=== PATIENT | female | born 1955 | race Caucasian/White ===

== ENCOUNTER → 2016-11-06 | Outpatient (CLI) | payer MEDICARE, BC ==
[2016-11-06 12:45] LABS: Anisocytosis Slight; CH 25.8; HDW 3.12; Hypochromasia Marked; Large Platelets Flag Slight; MCH 26.2 pg (25.0-35.0); MCHC 30.4 g/dL (31.0-37.0); MCV 86.5 fL (80.0-100.0); Mean Platelet Volume 11.6; RBC 3.73 m/uL (3.80-5.40); RDW 17.9 % (11.5-15.5); WBC 3.7 k/uL (3.8-10.6)
[2016-11-06 13:07] LABS: ALT 63 U/L (9-52); AST 63 U/L (14-36); Alkaline Phosphatase 106 U/L (38-126); Anion Gap 11 mmol/L; Blood Urea Nitrogen 14 mg/dL (7-17); Carbon Dioxide 26 mmol/L (22-30); Chloride 104 mmol/L (98-107); Glucose 228 mg/dL (74-99); Non-African American GFR(MDRD) >60 (>60 ml/min/1.73 sqM); Potassium 4.2 mmol/L (3.5-5.1); Sodium 141 mmol/L (137-145); Total Bilirubin 0.7 mg/dL (0.2-1.3); Total Protein 7.1 g/dL (6.3-8.2)
[2016-11-06 13:17] LABS: INR 1.2 (<1.1); Prothrombin Time 11.6 sec (9.0-12.0)
[2016-11-06 13:39] LABS: HCT 32.3 % (34.0-46.0); HGB 9.8 gm/dL (11.4-16.0)
== END | disposition home or self-care (01) ==
LOC: LABWHC1 11:56
DX: K74.60 Unspecified cirrhosis of liver (principal); R18.8 Other ascites
CPT/HCPCS: 36415; 80053; 85027; 85610

== ENCOUNTER → 2016-11-15 | Outpatient (CLI) | payer MEDICARE, BC | END | disposition home or self-care (01) | LOC: LABWHC1 09:02 | PROVIDERS: ATTEND Family Medicine | DX: E10.9 Type 1 diabetes mellitus without complications (principal) | CPT/HCPCS: 36415; 82947; 84681 ==

== ENCOUNTER → 2016-12-27 | Outpatient (CLI) | payer MEDICARE, BC ==
[2016-12-27 10:44] LABS: Anisocytosis Slight; Basophils % (A) 1 %; CH 27.2; Eosinophils # (A) 0.1 k/uL (0-0.7); Eosinophils % (A) 2 %; HCT 33.8 % (34.0-46.0); HDW 2.89; HGB 10.8 gm/dL (11.4-16.0); Hypochromasia Moderate; Luc # (Auto) 0.07; Luc % (Auto) 2; Lymphocytes # (A) 0.7 k/uL (1.0-4.8); Lymphocytes % (A) 19 %; MCHC 31.9 g/dL (31.0-37.0); MCV 87.9 fL (80.0-100.0); Mean Platelet Volume 10.7; Monocytes # (A) 0.2 k/uL (0-1.0); Monocytes % (A) 6 %; Neutrophils # (A) 2.7 k/uL (1.3-7.7); Neutrophils % (A) 70 %; RBC 3.84 m/uL (3.80-5.40); RDW 18.3 % (11.5-15.5); WBC 3.8 k/uL (3.8-10.6)
[2016-12-27 10:54] LABS: ALT 67 U/L (9-52); AST 72 U/L (14-36); Alkaline Phosphatase 88 U/L (38-126); Anion Gap 11 mmol/L; Blood Urea Nitrogen 9 mg/dL (7-17); Calcium 8.9 mg/dL (8.4-10.2); Carbon Dioxide 25 mmol/L (22-30); Chloride 104 mmol/L (98-107); Glucose 147 mg/dL (74-99); Non-African American GFR(MDRD) >60 (>60 ml/min/1.73 sqM); Potassium 4.3 mmol/L (3.5-5.1); Sodium 140 mmol/L (137-145); Total Bilirubin 1.2 mg/dL (0.2-1.3)
--- NOTE | 2016-12-27 11:16 | US ---
EXAMINATION TYPE: US abdomen complete DATE OF EXAM: 12/27/2016 9:57 AM COMPARISON: 02/08/2016 CLINICAL HISTORY: 61-year-old female Unspecified Liver cirrhosis K74.60. non-alcoholic cirrhosis, boris betic. TECHNIQUE: Multiple sonographic images of the abdomen were obtained. FINDINGS: TECHNOLOGIST NOTES: some exam limitations due to overlying bowel gas Liver Length: 15.7 cm CBD: 0.4 cm Spleen: 18.9 cm Right Kidney: 9.3 x 4.3 x 4.8 cm Left Kidney: 9.4 x 4.1 x 4.0 cm Pancreas: body/tail suboptimally visualized secondary to shadowing from bowel gas. The visualized po rtions show no gross abnormality. Liver: Limited views of the liver show diffuse heterogeneous echotexture and lobulated contour chava tible with underlying cirrhosis. No discrete mass is seen. Portal vein shows appropriate hepatopedal flow by velocity at the lower limits of normal at approximately 15 cm/s. Gallbladder: surgically absent CBD: Within normal limits Spleen: Significantly enlarged Right Kidney: No hydronephrosis Left Kidney: No hydronephrosis Upper IVC: Not well seen Abd Aorta: Obscured by overlying bowel gas IMPRESSION: 1. Coarsened appearance of the liver with lobulated contour compatible with underlying cirrhosis. Irene ited views show no evidence for hepatoma. 2. Prominent splenomegaly at 19 cm suggesting underlying portal venous hypertension. Blood flow in th e main portal vein is borderline sluggish. 3. Status post cholecystectomy. No bile duct dilatation.
[2016-12-27 11:53] LABS: Manual Review Performed
== END | disposition home or self-care (01) ==
LOC: RADUSWWP 09:24
DX: R16.1 Splenomegaly, not elsewhere classified (principal); Z90.49 Acquired absence of other specified parts of digestive tract
CPT/HCPCS: 36415; 76700; 80053; 82105; 85025

== ENCOUNTER → 2017-01-12 | Outpatient (CLI) | payer MEDICARE, BC ==
[2017-01-12 11:12] VITALS: BMI 29.7
== END | disposition home or self-care (01) ==
LOC: DBWHC3 10:58
PROVIDERS: ATTEND Family Medicine
DX: E11.65 Type 2 diabetes mellitus with hyperglycemia (principal); I10 Essential (primary) hypertension; E78.5 Hyperlipidemia, unspecified
CPT/HCPCS: G0108 ×4

== ENCOUNTER 2017-02-06 06:45 | Day surgery (SDC) | payer MEDICARE, BC ==
[2017-02-01 11:28] VITALS: BMI 28.6
[~2017-02-06 06:45] MED LIST: LACTATED RINGERS 1,000 ML IV SCH; LIDOCAINE 1% 20 ML VIAL (10MG/ML) FOR IV START INTRADERMA PRN
[2017-02-06] MEDS ORDERED: LACTATED RINGERS 1,000 ML IV ONE (07:00)
[2017-02-06 07:04] VITALS: TEMP 97.5
[2017-02-06 07:13] LABS: Glucose,Whole Blood 100 mg/dL (75-99)
[2017-02-06] MEDS ORDERED: PROPOFOL 10 MG/ML 20 ML VIAL IV ONE (08:31)
--- NOTE | 2017-02-06 09:19 | P.PCN ---
Date of Procedure: 02/06/17 Procedure(s) Performed: Procedure: Colonoscopy and polypectomy. Preoperative diagnosis: Screening for neoplasia. Postoperative diagnosis: 1. Mild sigmoid diverticulosis with no evidence of acute diverticulitis or strictures. 2. Distal sigmoid polyp snared but no large polyps or cancer. 3. Less than ideal preparation. Preparation: HalfLytely prep. Sedation: Was provided by anesthesia. Brief clinical history: The patient is a 61-year-old female who is scheduled for this evaluation for screening for neoplasia. She had a prior exam more than 6 years ago. There is no history of abdominal pains change in bowel habits or bleeding. Procedure: With the patient on her left lateral decubitus position and after informed consent and adequate sedation, the perianal area was inspected and it did not show any fissures or fistulas. There were no masses felt on digital rectal examination. The Olympus CFQ 160L video colonoscope was then inserted in the rectum in the usual fashion and advanced to the cecum. Unfortunately the preparation was not ideal and there was thick secretions and cecal debris that I could not consistently wash off or suction. There was few small diverticular orifices seen scattered in the distal sigmoid, and in the distal sigmoid around 30-35 cm from the anal verge there was a 1.5 cm polyp which I snared. There were no large polyps or tumors. With her less than ideal preparation, small polyps and superficial pathology could have been missed. There was no spontaneous bleeding and the mucosa where visualized appeared healthy. I retroflexed the endoscope in the rectum before the endoscope was withdrawn. The patient tolerated the procedure well. Plan: The patient was reassured. Discussed dietary measures. Because of her preparation and the finding of polyps, I am recommending repeat exam in 2-3 years before we go to a longer interval for screening. She will follow-up with you as planned.
[2017-02-06 09:25] LABS: Glucose,Whole Blood 128 mg/dL (75-99)
[2017-02-06 09:38] VITALS: RESP 16
[2017-02-06 09:46] VITALS: BP 118/58; PULSE 68
== END 2017-02-06 09:56 | disposition home or self-care (01) ==
LOC: ORWHC2ENDO 06:45
DX: Z12.11 Encounter for screening for malignant neoplasm of colon (principal); D12.5 Benign neoplasm of sigmoid colon; K57.30 Diverticulosis of large intestine without perforation or abscess without bleeding; E11.9 Type 2 diabetes mellitus without complications; I11.0 Hypertensive heart disease with heart failure; I50.9 Heart failure, unspecified; F32.9 Major depressive disorder, single episode, unspecified; Z79.4 Long term (current) use of insulin; Z79.899 Other long term (current) drug therapy; Z96.41 Presence of insulin pump (external) (internal); Z88.1 Allergy status to other antibiotic agents; Z88.0 Allergy status to penicillin; Z88.2 Allergy status to sulfonamides; Z91.09 Other allergy status, other than to drugs and biological substances
CPT/HCPCS: 45385; J2704

== ENCOUNTER → 2017-03-19 | Outpatient (CLI) | payer MEDICARE, BC | END | disposition home or self-care (01) | LOC: LABWHC1 11:11 | PROVIDERS: ATTEND Internal Medicine Endocrinology, Diabetes & Metabolism | DX: E11.65 Type 2 diabetes mellitus with hyperglycemia (principal) | CPT/HCPCS: 36415; 82947; 84681 ==

== ENCOUNTER → 2017-06-07 | Outpatient (CLI) | payer MEDICARE, BC ==
[2017-06-07 12:26] LABS: ALT 48 U/L (9-52); AST 48 U/L (14-36); Alkaline Phosphatase 97 U/L (38-126); Anion Gap 10 mmol/L; Blood Urea Nitrogen 9 mg/dL (7-17); Carbon Dioxide 23 mmol/L (22-30); Chloride 109 mmol/L (98-107); Glucose 93 mg/dL (74-99); Non-African American GFR(MDRD) >60 (>60 ml/min/1.73 sqM); Potassium 4.3 mmol/L (3.5-5.1); Sodium 142 mmol/L (137-145); Total Bilirubin 1.1 mg/dL (0.2-1.3); Total Protein 6.7 g/dL (6.3-8.2)
[2017-06-07 12:27] LABS: Basophils % (A) 0 %; CH 29.3; CHCM 31.9; Eosinophils # (A) 0.1 k/uL (0-0.7); Eosinophils % (A) 2 %; HCT 34.6 % (34.0-46.0); HDW 3.02; HGB 11.2 gm/dL (11.4-16.0); Hypochromasia Slight; Large Platelets Flag Slight; Luc # (Auto) 0.11; Luc % (Auto) 3; Lymphocytes # (A) 0.9 k/uL (1.0-4.8); Lymphocytes % (A) 19 %; MCHC 32.5 g/dL (31.0-37.0); MCV 92.2 fL (80.0-100.0); Mean Platelet Volume 11.3; Monocytes # (A) 0.3 k/uL (0-1.0); Monocytes % (A) 6 %; Neutrophils # (A) 3.1 k/uL (1.3-7.7); Neutrophils % (A) 70 %; RBC 3.75 m/uL (3.80-5.40); RDW 15.8 % (11.5-15.5); WBC 4.5 k/uL (3.8-10.6); WBC (Perox) 4.54
== END | disposition home or self-care (01) ==
LOC: LABWHC1 11:52
DX: K74.60 Unspecified cirrhosis of liver (principal)
CPT/HCPCS: 36415; 80053; 82105; 82140; 85025

== ENCOUNTER → 2017-06-14 | Outpatient (CLI) | payer MEDICARE, BC ==
--- NOTE | 2017-06-14 15:46 | BD ---
EXAMINATION TYPE: MG DEXA axial skeleton. DATE OF EXAM: 06/14/2017 COMPARISON: NONE CLINICAL HISTORY: 62-year-old female symptomatic postmenopausal state Height: 63 Weight: 182.0 FRAX RISK QUESTIONS: Alcohol (3 or more units per day): no Family History (Parent hip fracture): no Glucocorticoids (More than 3mos): no (Ex: prednisone, prednisolone, methylprednisolone, dexamethasone, and hydrocortisone). History of Fracture in Adulthood: no Secondary Osteoporosis: 1. Type 1 Diabetes: no 2. Hyperthyroidism: no 3. Menopause before 45: yes 4. Malnutrition: no 5. Chronic liver disease: yes Rheumatoid Arthritis: no Current Tobacco Use: no RISK FACTORS HISTORY OF: Hip Fracture (Right/Left): no Spine Fracture: no History of Wrist Fracture: yes right / as a child Surgery to Spine/Hip(right/left)/Wrist (right/left): lumbar spine- 2015 Family History of Osteoporosis: no Active: yes Diet low in dairy products/other sources of calcium: yes Postmenopausal woman: age 26 hysterectomy/cervical cancer Lost more than 2 inches in height since high school: yes Frequent falls: no Poor Health: no Hyperparathyroidism: no Adrenal Insufficiency: no MEDICATIONS: insulin-, Lasix, throat meds, Additional History: CHF EXAM MEASUREMENTS: Bone mineral densitometry was performed using the Loogla System. Bone mineral density about the R hip (g/cm2): 1.012 Bone mineral density about the L hip (g/cm2): 0.946 T Score values are as follows: -----R Neck: -0.2 -----L Neck: -0.7 -----R Total: 1.5 -----L Total: 0.9 Bone mineral density has: decreased -2.4 % since study of: 08.03.2011 IMPRESSION: Measurements taken at the hips due to prior lumbar surgery. Normal (Values between +1 and -1 indicate normal bone mass). Consider repeating this study in 5 year s or sooner if there is some new clinical indication. NOTE: T-SCORE=SD OF THE YOUNG ADULT MEAN.
--- NOTE | 2017-06-18 08:29 | MM ---
Reason for exam: screening (asymptomatic). Last mammogram was performed 1 year ago. History: Patient is postmenopausal and has history of endometrial cancer at age 25. Family history of premenopausal breast cancer in 2 sisters and breast cancer in mother. Core biopsy of the left breast. Excisional biopsy of the right breast. Physical Findings: A clinical breast exam by your physician is recommended on an annual basis and results should be correlated with mammographic findings. MG 3D Screening Mammo W/Cad Bilateral CC and MLO view(s) were taken. Prior study comparison: May 30, 2016, bilateral MG 3d screening mammo w/cad. The breast tissue is heterogeneously dense. This may lower the sensitivity of mammography. Finding: There are typically benign calcifications in the left breast. There are some new segmental calcifications in the left breast at the 9 o'clock position, 10cm from the nipple. New finding since May 30, 2016. ASSESSMENT: Incomplete: need additional imaging evaluation, BI-RAD 0 RECOMMENDATION: Special view mammogram of the left breast. [facility] will attempt to contact patient to return for supplemental views.
== END | disposition home or self-care (01) ==
LOC: RADBDWWP 11:18
PROVIDERS: ATTEND Family Medicine
DX: Z12.31 Encounter for screening mammogram for malignant neoplasm of breast (principal); N95.1 Menopausal and female climacteric states
CPT/HCPCS: 77080; 77063; G0202

== ENCOUNTER → 2017-06-19 | Outpatient (CLI) | payer MEDICARE, BC ==
--- NOTE | 2017-06-20 07:06 | MM ---
Reason for exam: additional evaluation requested from abnormal screening. Last mammogram was performed less than 1 month ago. History: Patient is postmenopausal and has history of endometrial cancer at age 25. Family history of breast cancer in 2 paternal aunts, breast cancer in maternal aunt, and premenopausal breast cancer in sister. Core biopsy of the left breast. Excisional biopsy of the right breast. Physical Findings: Nurse did not find any significant physical abnormalities on exam. MG 3D Work Up W/Cad LT LM, CC with magnification, and LM with magnification view(s) were taken of the left breast. Prior study comparison: June 14, 2017, bilateral MG 3d screening mammo w/cad. May 30, 2016, bilateral MG 3d screening mammo w/cad. New clustered calcifications upper inner left breast. These results were verbally communicated with the patient and result sheet given to the patient on 06/19/17. ASSESSMENT: Suspicious, BI-RAD 4 RECOMMENDATION: Stereotactic core biopsy of the left breast. Called Dr. Underwood with mammographic findings and has scheduled an appointment for the patient for 07/06/17 at 10:[address] Swanson. Biopsy scheduled for 06/25/17 at 8:00. PRELIMINARY REPORT CALLED AND FAXED TO DR. SWANSON ON 06/20/17 /TP.
== END | disposition home or self-care (01) ==
LOC: RADMAMWWP 14:23
PROVIDERS: ATTEND Family Medicine
DX: R92.8 Other abnormal and inconclusive findings on diagnostic imaging of breast (principal)
CPT/HCPCS: G0206; G0279

== ENCOUNTER → 2017-06-25 | Day surgery (SDC) | payer MEDICARE, BC ==
[2017-06-25 07:35] VITALS: RESP 16; BMI 31.8
[2017-06-25 10:18] VITALS: BP 96/54; PULSE 65; TEMP 97.9
--- NOTE | 2017-06-25 11:58 | MM ---
EXAMINATION TYPE: MG stereo VAD BX LT DATE OF EXAM: 06/25/2017 COMPARISON: NONE CLINICAL HISTORY: Left breast calcifications for which stereotactic biopsy was recommended. TECHNIQUE: Stereotactic guided core biopsy of left breast. FINDINGS: The procedure of stereotactic guided core biopsy was explained to the patient. Benefits, alternatives, and risks were discussed. An informed consent was then obtained. The shortness pathway for biopsy was chosen. Shortness pathway was mediolateral approach. 8 cc of lidocaine was used to anesthetize the superficial skin surface and 10 cc of lidocaine with epinephrine was injected into the deeper tissues at the site of biopsy. A vacuum assisted biopsy gun was used to obtain six core samples. Tl shaped marker was deployed at the site of biopsy. The patient tolerated the procedure well without any immediate complication. The patient was kept in the radiology department for short stay after the procedure and then discharged home in stable condition. Targeted calcifications are identified in specimen mammogram. Post biopsy mammogram shows the clip to appear in satisfactory position relative to the targeted area of concern on the preprocedure images. IMPRESSION: SUCCESSFUL, UNCOMPLICATED STEREOTACTIC GUIDED CORE BIOPSY OF AREA OF CONCERN IN THE LEFT BREAST, FULL PATHOLOGY RESULTS TO FOLLOW. Pathology Results: Benign BREAST, LEFT, STEREOTACTIC CORE BIOPSY: BREAST PARENCHYMA WITH PROMINENT ADIPOSE TISSUE, AREAS OF DENSE FIBROSIS, FOCALLY WITH PIGMENTED HISTIOCYTES AND CALCIFICATIONS, AND FOCAL FAT NECROSIS. PENDING DEEPER SECTIONS. ADDENDUM REPORT BREAST, LEFT, STEREOTACTIC CORE BIOPSY: BENIGN BREAST PARENCHYMA WITH PROMINENT ADIPOSE TISSUE, AREAS OF DENSE FIBROSIS, FOCALLY WITH PIGMENTED HISTIOCYTES AND CALCIFICATIONS, AND FAT NECROSIS. Recommendation Follow up mammogram of the left breast in 6 months. KEILA
== END ==
LOC: RADMAMWWP 07:04
PROVIDERS: ATTEND Surgery
DX: N64.1 Fat necrosis of breast (principal); N60.32 Fibrosclerosis of left breast; R92.1 Mammographic calcification found on diagnostic imaging of breast; Z88.2 Allergy status to sulfonamides; Z88.1 Allergy status to other antibiotic agents; Z91.030 Bee allergy status; Z91.041 Radiographic dye allergy status; Z88.0 Allergy status to penicillin; Z91.013 Allergy to seafood
CPT/HCPCS: 88305; 19081; J2001

== ENCOUNTER → 2017-07-18 | Outpatient (CLI) | payer MEDICARE, BC ==
--- NOTE | 2017-07-18 15:34 | CT ---
EXAMINATION TYPE: CT chest wo con DATE OF EXAM: 07/18/2017 COMPARISON: NONE HISTORY: Patient has no complaints at time of study. Follow up study for known lung nodule. CT DLP: [address] of the chest was performed with lung and mediastinal window settings submitted. The la ck of contrast limits evaluation of the vascular, mediastinal and parenchymal structures including th e upper abdomen. LUNGS: Pleural based pulmonary nodule left upper lobe anteriorly image 55 measures 7.4 mm. One or 2 t iny 3 mm nodules within the lingula. The lungs are otherwise clear. No evidence for infiltrate or mas s. MEDIASTINUM/FRANCISCO: Thoracic aorta is of normal caliber with limited evaluation given lack of contras t. The heart is not enlarged. No evidence for mediastinal mass. No lymph nodes greater than 1cm. UPPER ABDOMEN: There is thickening of the distal esophagus could be on the basis of esophagitis. Cons ider direct visualization. There is evidence for ascites about the liver edge. Nodular hepatic contou r is felt to reflect cirrhotic liver disease. There is evidence of splenomegaly. The spleen is incomp letely imaged. Suspect portal venous hypertension. Cholecystectomy clips in place. OTHER: No significant other abnormality. IMPRESSION: 1. Nonspecific pulmonary nodularity. Metastatic disease is not excluded. Stability over a two-year t imeframe should be documented radiographically. If any outside studies are available for review and a n addendum will gladly be issued. 2. Cirrhotic liver disease with splenomegaly and probable portal venous hypertension. 3. Ascites. 4. Thickening of the distal esophagus.
== END | disposition home or self-care (01) ==
LOC: RADCTMAIN 14:49
PROVIDERS: ATTEND Family Medicine
DX: R91.8 Other nonspecific abnormal finding of lung field (principal); K22.8 Other specified diseases of esophagus; Z91.041 Radiographic dye allergy status; Z88.2 Allergy status to sulfonamides
CPT/HCPCS: 71250

== ENCOUNTER 2017-10-23 07:38 | Day surgery (SDC) | payer MEDICARE, BC ==
[2017-10-23 08:39] LABS: Mean Platelet Volume 9.9
[2017-10-23 08:46] LABS: INR 1.3 (<1.2); Prothrombin Time 12.6 sec (9.0-12.0)
[2017-10-23 08:49] LABS: Non-African American GFR(MDRD) >60 (>60 ml/min/1.73 sqM)
[2017-10-23 10:04] VITALS: RESP 18; TEMP 98.1
[2017-10-23 10:27] VITALS: PULSE 97
--- NOTE | 2017-10-23 11:59 | US ---
EXAMINATION TYPE: US paracentesis abd w/image DATE OF EXAM: 10/23/2017 COMPARISON: NONE HISTORY: Ascites. PROCEDURE: Maximal barrier technique was utilized. The skin overlying a suitable pocket of fluid was localized with ultrasound and the overlying skin was prepped and draped. Ultrasound was utilized with sterile technique. Lidocaine was used for local anesthesia and a skin jose made with a scalpel. Catheter was advanced under direct ultrasound guidance into a suitable pocket of fluid and approximately 3.2 liter s of serous fluid were removed. Catheter was withdrawn and hemostasis achieved. There is no immedia te complication; the patient is discharged in stable condition. IMPRESSION: STATUS POST ULTRASOUND GUIDED PARACENTESIS FOR PALLIATION OF ASCITES. THIS PROCEDURE WA S PERFORMED BY THE UNDERSIGNED.
[2017-10-23 15:46] VITALS: BP 107/62
== END 2017-10-23 11:05 | disposition home or self-care (01) ==
LOC: RADPROMAIN 07:38
PROVIDERS: ATTEND Family Medicine
DX: R18.8 Other ascites (principal)
CPT/HCPCS: 36415; 49083; 82565; 85049; 85610

== ENCOUNTER 2017-11-05 08:23 | Inpatient (IN) | payer MEDICARE, BC ==
[2017-11-05] MEDS ORDERED: PANTOPRAZOLE 40 MG/10 ML VIAL IVP STA (08:51)
--- NOTE | 2017-11-05 08:53 | ED ---
General Adult HPI - General Chief complaint: GI Bleed Stated complaint: Vomiting blood Time Seen by Provider: 11/05/17 08:34 Source: patient, RN notes reviewed Mode of arrival: ambulatory Limitations: no limitations - History of Present Illness Initial comments: Patient is a pleasant 62-year-old female presenting to the emergency Department with upper GI hemorrhage. Patient did have 3 episodes this morning. Patient states it was mostly blood. Patient states there was some chunks that she was unsure if that was blood clots or food or both. Patient has minimal shortness of breath which is chronic and improved with sitting up. Patient does have chronic dark stools. This has been unchanged. No abdominal pain. Patient does have a history of esophageal varices. - Related Data Home Medications Medication Instructions Recorded Confirmed Montelukast [Singulair] 10 mg PO DAILY 07/10/14 11/05/17 Ezetimibe [Zetia] 10 mg PO DAILY 09/04/16 11/05/17 INSULIN LISPRO (For Pump) [humaLOG 0.01 units SQ-PUMP CONTINUOUS 09/04/16 (For Pump)] Spironolactone [Aldactone] 100 mg PO DAILY 10/05/16 11/05/17 Propranolol [Inderal] 10 mg PO BID 01/12/17 11/05/17 Sertraline [Zoloft] 25 mg PO DAILY 01/12/17 11/05/17 Acetaminophen [Tylenol] 325 mg PO Q4H PRN 09/15/17 11/05/17 Vitamin D 625mg 625 mg PO BID 09/15/17 11/05/17 Previous Rx's Medication Instructions Recorded Furosemide [Lasix] 40 mg PO BID #0 09/17/17 Potassium Chloride ER [K-Dur 20] 20 meq PO DAILY #30 tab 09/17/17 Allergies Allergy/AdvReac Type Severity Reaction Status Date / Time doxycycline Allergy Rash/Hives Verified 11/05/17 08:54 iodine Allergy Rash/Hives Verified 11/05/17 08:54 Penicillins Allergy Rash/Hives Verified 11/05/17 08:54 shellfish derived Allergy Rash/Hives Verified 11/05/17 08:54 Sulfa (Sulfonamide Allergy Rash/Hives Verified 11/05/17 08:54 Antibiotics) venom-honey bee Allergy Anaphylaxis Verified 11/05/17 08:54 [bee venom (honey bee)] Review of Systems ROS Statement: Those systems with pertinent positive or pertinent negative responses have been documented in the HPI. ROS Other: All systems not noted in ROS Statement are negative. Constitutional: Denies: fever Eyes: Denies: eye pain ENT: Denies: ear pain Respiratory: Reports: dyspnea Cardiovascular: Denies: chest pain Endocrine: Denies: fatigue Gastrointestinal: Reports: vomiting, hematemesis. Denies: abdominal pain Genitourinary: Denies: dysuria Musculoskeletal: Denies: back pain Skin: Denies: rash Neurological: Denies: headache Past Medical History Past Medical History: Asthma, Heart Failure, Diabetes Mellitus, Fibromyalgia, Liver Disease, Skin Disorder Additional Past Medical History / Comment(s): HX OF ascites. Non-ETOH cirrhosis , esohpogeal varicies, thrombycytopenia, anemia. States 5mm left lung "lump", MD monitoring. Psoriasis History of Any Multi-Drug Resistant Organisms: None Reported Past Surgical History: Cholecystectomy, Hysterectomy, Orthopedic Surgery, Tonsillectomy, Tubal Ligation Additional Past Surgical History / Comment(s): Bilateral rotator cuffs, EGD with banded varicies and recent paracentesis with 3Liters off. breast biopsy right [id number]. breast biopsy left [id number]. Back surgery 2014 Past Anesthesia/Blood Transfusion Reactions: Previous Problems w/ Anesthesia Additional Past Anesthesia/Blood Transfusion Reaction / Comment(s): difficulty breathing when coming out of anesthesia; difficulty waking up. Hypotension with general anesthesia. blood transfusions without reaction. Past Psychological History: No Psychological Hx Reported Smoking Status: Former smoker Past Alcohol Use History: None Reported Past Drug Use History: None Reported - Past Family History Mother Family Medical History: Cancer, Dementia, Osteoarthritis (OA) Additional Family Medical History / Comment(s): skin cancer. Father Family Medical History: Coronary Artery Disease (CAD) Additional Family Medical History / Comment(s): cabg/pacemaker Brother(s) Family Medical History: Cancer Sister(s) Family Medical History: Cancer Additional Family Medical History / Comment(s): Breast CA. General Exam Limitations: no limitations General appearance: alert, in no apparent distress Head exam: Present: atraumatic Eye exam: Present: normal appearance, PERRL ENT exam: Present: normal oropharynx Neck exam: Present: normal inspection Respiratory exam: Present: normal lung sounds bilaterally Cardiovascular Exam: Present: regular rate, normal rhythm GI/Abdominal exam: Present: soft. Absent: tenderness Extremities exam: Present: normal inspection Neurological exam: Present: alert Psychiatric exam: Present: normal affect, normal mood Skin exam: Present: normal color Course Vital Signs 11/05/17 11/05/17 08:25 09:03 Temperature 97.4 F L Pulse Rate 107 H 96 Respiratory 20 18 Rate Blood Pressure 135/74 104/57 O2 Sat by Pulse 98 94 L Oximetry Medical Decision Making - Medical Decision Making Patient reevaluated and resting comfortably in bed. Patient family were updated on results and plan. Case was discussed with practitioner Mere, who will admit for Dr. Sibley, covering for Dr. Underwood. Dr. Cuellar will be placed on consult. - Lab Data Result diagrams: 11/05/17 08:54 11/05/17 08:54 Lab Results 11/05/17 11/05/17 11/05/17 Range/Units 08:54 08:54 08:54 WBC 5.4 (3.8-10.6) k/uL RBC 3.51 L (3.80-5.40) m/uL Hgb 11.9 (11.4-16.0) gm/dL Hct 35.7 (34.0-46.0) % MCV 101.7 H (80.0-100.0) fL MCH 34.0 (25.0-35.0) pg MCHC 33.4 (31.0-37.0) g/dL RDW 16.2 H (11.5-15.5) % Plt Count 75 L (150-450) k/uL Neutrophils % 75 % Lymphocytes % 13 % Monocytes % 7 % Eosinophils % 2 % Basophils % 1 % Neutrophils # 4.1 (1.3-7.7) k/uL Lymphocytes # 0.7 L (1.0-4.8) k/uL Monocytes # 0.4 (0-1.0) k/uL Eosinophils # 0.1 (0-0.7) k/uL Basophils # 0.0 (0-0.2) k/uL Manual Slide Review Performed Poikilocytosis (manual Present Anisocytosis Slight Macrocytosis Slight PT (9.0-12.0) sec INR (<1.2) APTT (22.0-30.0) sec Sodium 138 (137-145) mmol/L Potassium 4.6 (3.5-5.1) mmol/L Chloride 107 (98-107) mmol/L Carbon Dioxide 24 (22-30) mmol/L Anion Gap 7 mmol/L BUN 21 H (7-17) mg/dL Creatinine 0.86 (0.52-1.04) mg/dL Est GFR (MDRD) Af Amer >60 (>60 ml/min/1.73 sqM) Est GFR (MDRD) Non-Af >60 (>60 ml/min/1.73 sqM) Glucose 137 H (74-99) mg/dL Calcium 8.8 (8.4-10.2) mg/dL Total Bilirubin 1.7 H (0.2-1.3) mg/dL AST 44 H (14-36) U/L ALT 45 (9-52) U/L Alkaline Phosphatase 103 (38-126) U/L Total Creatine Kinase 50 (30-135) U/L CK-MB (CK-2) 0.3 (0.0-2.4) ng/mL CK-MB (CK-2) Rel Index 0.6 Troponin I <0.012 (0.000-0.034) ng/mL Total Protein 6.0 L (6.3-8.2) g/dL Albumin 3.0 L (3.5-5.0) g/dL Amylase 32 (30-110) U/L Lipase 240 (23-300) U/L Blood Type Blood Type Recheck Antibody Screen Spec Expiration Date 11/05/17 11/05/17 Range/Units 08:54 08:54 WBC (3.8-10.6) k/uL RBC (3.80-5.40) m/uL Hgb (11.4-16.0) gm/dL Hct (34.0-46.0) % MCV (80.0-100.0) fL MCH (25.0-35.0) pg MCHC (31.0-37.0) g/dL RDW (11.5-15.5) % Plt Count (150-450) k/uL Neutrophils % % Lymphocytes % % Monocytes % % Eosinophils % % Basophils % % Neutrophils # (1.3-7.7) k/uL Lymphocytes # (1.0-4.8) k/uL Monocytes # (0-1.0) k/uL Eosinophils # (0-0.7) k/uL Basophils # (0-0.2) k/uL Manual Slide Review Poikilocytosis (manual Anisocytosis Macrocytosis PT 12.8 H (9.0-12.0) sec INR 1.4 H (<1.2) APTT 24.4 (22.0-30.0) sec Sodium (137-145) mmol/L Potassium (3.5-5.1) mmol/L Chloride (98-107) mmol/L Carbon Dioxide (22-30) mmol/L Anion Gap mmol/L BUN (7-17) mg/dL Creatinine (0.52-1.04) mg/dL Est GFR (MDRD) Af Amer (>60 ml/min/1.73 sqM) Est GFR (MDRD) Non-Af (>60 ml/min/1.73 sqM) Glucose (74-99) mg/dL Calcium (8.4-10.2) mg/dL Total Bilirubin (0.2-1.3) mg/dL AST (14-36) U/L ALT (9-52) U/L Alkaline Phosphatase (38-126) U/L Total Creatine Kinase (30-135) U/L CK-MB (CK-2) (0.0-2.4) ng/mL CK-MB (CK-2) Rel Index Troponin I (0.000-0.034) ng/mL Total Protein (6.3-8.2) g/dL Albumin (3.5-5.0) g/dL Amylase (30-110) U/L Lipase (23-300) U/L Blood Type A Positive Blood Type Recheck No Antibody Screen NEGATIVE Spec Expiration Date 11/08/2017 - 0891 - Radiology Data Radiology results: image reviewed (Chest x-ray shows no acute process) Disposition Clinical Impression: Hematemesis Disposition: ADMITTED IP TO THIS [facility] Referrals: Dario Underwood MD [Primary Care Provider] - 1-2 days Decision Time: 10:27
[2017-11-05 09:19] LABS: ALT 45 U/L (9-52); AST 44 U/L (14-36); Alkaline Phosphatase 103 U/L (38-126); Amylase 32 U/L (30-110); Anion Gap 7 mmol/L; Blood Urea Nitrogen 21 mg/dL (7-17); Calcium 8.8 mg/dL (8.4-10.2); Carbon Dioxide 24 mmol/L (22-30); Chloride 107 mmol/L (98-107); Glucose 137 mg/dL (74-99); INR 1.4 (<1.2); Lipase 240 U/L (23-300); Partial Thromboplastin Time 24.4 sec (22.0-30.0); Potassium 4.6 mmol/L (3.5-5.1); Prothrombin Time 12.8 sec (9.0-12.0); Sodium 138 mmol/L (137-145); Total Bilirubin 1.7 mg/dL (0.2-1.3)
--- NOTE | 2017-11-05 09:25 | XR ---
EXAMINATION TYPE: XR chest 1V portable DATE OF EXAM: 11/05/2017 COMPARISON: 09/15/2017 HISTORY: Hematemesis. TECHNIQUE: Single frontal view of the chest is obtained. FINDINGS: There is no focal air space opacity, pleural effusion, or pneumothorax seen. The cardiac silhouette size is again upper limits of normal. The osseous structures are intact. Again the known sub-3 mm pulmonary nodules are not identified radiographically as seen on the prior CT of 07/18/2017. IMPRESSION: No acute cardiopulmonary process.
[2017-11-05 09:27] LABS: Anisocytosis Slight; Basophils % (A) 1 %; Eosinophils # (A) 0.1 k/uL (0-0.7); Eosinophils % (A) 2 %; HCT 35.7 % (34.0-46.0); HGB 11.9 gm/dL (11.4-16.0); Lymphocytes # (A) 0.7 k/uL (1.0-4.8); Lymphocytes % (A) 13 %; MCHC 33.4 g/dL (31.0-37.0); MCV 101.7 fL (80.0-100.0); Macrocytosis Slight; Mean Platelet Volume 9.6; Monocytes # (A) 0.4 k/uL (0-1.0); Monocytes % (A) 7 %; Neutrophils # (A) 4.1 k/uL (1.3-7.7); Neutrophils % (A) 75 %; RBC 3.51 m/uL (3.80-5.40); RDW 16.2 % (11.5-15.5); WBC 5.4 k/uL (3.8-10.6)
[2017-11-05 09:28] LABS: Creatine Kinase 50 U/L (30-135)
[2017-11-05 09:40] LABS: Platelet Count 75 k/uL (150-450); Poikilocytosis (M) Present
[2017-11-05 09:41] LABS: Creatine Kinase MB 0.3 ng/mL (0.0-2.4); Troponin I <0.012 ng/mL (0.000-0.034)
[2017-11-05] MEDS ORDERED: NALOXONE 0.4 MG/ML 1 ML VIAL IV PRN (10:27)
[2017-11-05] MEDS ORDERED: ONDANSETRON 4 MG/2 ML VIAL IVP PRN (10:27)
[2017-11-05] MEDS: SODIUM CHLORIDE 0.9% 1,000 ML IV SCH (11:49)
[2017-11-05] MEDS ORDERED: INSULIN PUMP TARGET GLUCOSE 1 EACH MISC MISCELLANE PRN (13:26)
[2017-11-05] MEDS ORDERED: INSULIN PUMP ACTIVE INSULIN 1 EACH MISC MISCELLANE PRN (13:26)
[2017-11-05] MEDS ORDERED: INSPUCOR MISCELLANE PRN (13:26)
[2017-11-05] MEDS ORDERED: INSULIN PUMP BASAL RATES 1 EACH MISC MISCELLANE PRN (13:26)
[2017-11-05] MEDS ORDERED: INSULIN ASPART 100 UNIT/ML 1 ML 10 ML VIAL SQ PRN (13:26)
--- NOTE | 2017-11-05 15:25 | CONS ---
CONSULTATION DATE OF CONSULTATION: 11/05/2017 REQUESTING PHYSICIAN: Dr. Dario Underwood. REASON FOR CONSULTATION: Acute upper GI bleed. HISTORY OF PRESENT ILLNESS: The patient is a 62-year-old pleasant white female admitted with history of non alcoholic cirrhosis of the liver who follows with Dr. Berg on a frequent basis, was admitted to the hospital with acute upper GI bleed. She had 3 episodes of bright red blood emesis this morning at 10 o'clock and subsequently came to the emergency room and was admitted to the hospital. Her hemoglobin was 11.9 g/dL. Since being in the hospital, did not have any evidence of any further episodes of bleeding. She had 2 episodes of black tarry stools. She denies any dizziness. No abdominal pain. No nausea. She had a similar episode about 3 months ago and underwent an upper endoscopy by Dr. Berg. According to the patient was noted to have esophageal varices for which she underwent banding ligation performed. She reports no recent NSAID use. PAST MEDICAL HISTORY: Significant for nonalcoholic cirrhosis of the liver. History of esophageal varices in the past for which she underwent variceal ligation by Dr. Berg, hypertension, obesity, hyperlipidemia, anxiety, depression. MEDICATIONS: At home include: Singulair, Zetia, insulin, Aldactone, Inderal, Zoloft, Tylenol, vitamin D. ALLERGIES: DOXYCYCLINE, IODINE, PENICILLIN, SULFA. PAST SURGICAL HISTORY: Bilateral rotator cuff, EGD with esophageal varices, recurrent large volume paracentesis and a breast biopsy. FAMILY HISTORY: Mother had dementia and degenerative joint disease. Father had coronary artery disease. REVIEW OF SYSTEMS: Cardiopulmonary: No chest pain or shortness of breath. Genitourinary: No dysuria or hematuria. Musculoskeletal: Unremarkable. Skin unremarkable. Endocrine unremarkable. Psychiatric unremarkable. Neurology unremarkable. ENT vision unremarkable. Constitutional: No recent weight loss. No fever, chills, night sweats. PHYSICAL EXAMINATION: She appears comfortable, in no apparent distress. VITAL SIGNS: Stable. Blood pressure is 125/70, pulse rate 103, temperature 97.1, HEENT examination unremarkable. Conjunctivae pink. Sclerae anicteric. Oral cavity no lesions. Neck: No JVD or lymph node enlargement. Chest: Clear to auscultation. HEART: Regular rate and rhythm. ABDOMEN: Soft. Bowel sounds are positive. No organomegaly. Extremities: No pedal edema. Skin no rashes. NEUROLOGIC: Alert and oriented x3. No focal deficits. LAB: WBC 5.4, hemoglobin 11.9, platelets 75,000. PT at 12.8, INR 1.4. BUN is 21, creatinine 0.86. IMPRESSION: 1. This is a lady with a history of nonalcoholic fatty liver disease/cirrhosis of the liver, who follows with Dr. Berg on an outpatient basis. She presents to the hospital with acute upper GI bleed, possibly esophageal varices bleeding versus portal hypertensive gastropathy. She is presently hemodynamically stable. She did not have any active bleeding in the last few hours. Last EGD with variceal ligation was performed in May of this year by Dr. Berg. 2. Ascites requiring large volume paracentesis almost on a monthly basis. RECOMMENDATION: 1. We will schedule her for an upper endoscopy tomorrow morning. 2. CBC every 6 hours. 3. Continue with IV Protonix. 4. Clear liquid diet and we will follow the patient closely during her hospital stay. Thank you for this consultation. MMODL / IJN: [id number] /
[2017-11-05 17:59] LABS: Glucose,Whole Blood 235 mg/dL (75-99)
[2017-11-05] MEDS: INSULIN PUMP MEAL BOLUS 1 UNIT MISC MISCELLANE SCH (18:03)
[2017-11-05 18:04] LABS: Anisocytosis Slight; Basophils % (A) 1 %; Eosinophils # (A) 0.1 k/uL (0-0.7); Eosinophils % (A) 1 %; HCT 32.5 % (34.0-46.0); HGB 10.5 gm/dL (11.4-16.0); Lymphocytes # (A) 0.8 k/uL (1.0-4.8); Lymphocytes % (A) 16 %; MCH 33.5 pg (25.0-35.0); MCHC 32.2 g/dL (31.0-37.0); MCV 104.1 fL (80.0-100.0); Macrocytosis Moderate; Monocytes # (A) 0.3 k/uL (0-1.0); Monocytes % (A) 5 %; Neutrophils # (A) 3.7 k/uL (1.3-7.7); Neutrophils % (A) 75 %; RBC 3.12 m/uL (3.80-5.40); RDW 16.2 % (11.5-15.5); WBC 4.9 k/uL (3.8-10.6)
[2017-11-05 18:06] LABS: Platelet Count 60 k/uL (150-450)
[2017-11-05 21:40] LABS: Glucose,Whole Blood 84 mg/dL (75-99)
[2017-11-05 23:41] LABS: Anisocytosis Slight; Basophils % (A) 1 %; Eosinophils # (A) 0.1 k/uL (0-0.7); Eosinophils % (A) 2 %; HCT 28.7 % (34.0-46.0); HGB 9.3 gm/dL (11.4-16.0); Lymphocytes # (A) 0.8 k/uL (1.0-4.8); Lymphocytes % (A) 17 %; MCH 33.4 pg (25.0-35.0); MCHC 32.4 g/dL (31.0-37.0); MCV 103.2 fL (80.0-100.0); Macrocytosis Moderate; Mean Platelet Volume 11.4; Monocytes # (A) 0.3 k/uL (0-1.0); Monocytes % (A) 6 %; Neutrophils # (A) 3.2 k/uL (1.3-7.7); Neutrophils % (A) 70 %; RBC 2.78 m/uL (3.80-5.40); RDW 17.6 % (11.5-15.5); WBC 4.6 k/uL (3.8-10.6)
[2017-11-05 23:43] LABS: Platelet Count 57 k/uL (150-450)
[2017-11-06 01:33] LABS: Hemoglobin A1C 4.6 % (4.0-6.0)
[2017-11-06] MEDS: INSULIN PUMP MEAL BOLUS 1 UNIT MISC MISCELLANE SCH ×5 (05:30→21:28)
[2017-11-06] MEDS: SODIUM CHLORIDE 0.9% 1,000 ML IV SCH ×4 (05:33→21:28)
[2017-11-06 06:13] LABS: Anisocytosis Slight; HCT 26.8 % (34.0-46.0); HGB 8.7 gm/dL (11.4-16.0); MCH 33.1 pg (25.0-35.0); MCHC 32.5 g/dL (31.0-37.0); MCV 101.7 fL (80.0-100.0); Macrocytosis Slight; Mean Platelet Volume 9.7; Platelet Count 60 k/uL (150-450); RBC 2.64 m/uL (3.80-5.40); RDW 17.1 % (11.5-15.5); WBC 4.4 k/uL (3.8-10.6)
[2017-11-06 06:14] LABS: Glucose,Whole Blood 123 mg/dL (75-99)
[2017-11-06 06:27] LABS: ALT 46 U/L (9-52); AST 34 U/L (14-36); Albumin 2.4 g/dL (3.5-5.0); Alkaline Phosphatase 83 U/L (38-126); Anion Gap 6 mmol/L; Blood Urea Nitrogen 19 mg/dL (7-17); Calcium 8.2 mg/dL (8.4-10.2); Carbon Dioxide 21 mmol/L (22-30); Chloride 110 mmol/L (98-107); Glucose 107 mg/dL (74-99); Potassium 3.8 mmol/L (3.5-5.1); Sodium 137 mmol/L (137-145); Total Bilirubin 1.3 mg/dL (0.2-1.3)
[2017-11-06 07:04] LABS: Eosinophils # (M) 0.18 k/uL (0-0.7); Lymphocytes # (M) 0.79 k/uL (1.0-4.8); Monocytes # (M) 0.31 k/uL (0-1.0); Neutrophils # (M) 3.17 k/uL (1.3-7.7); Neutrophils % (M) 72 %; Nucleated Red Blood Cells 1 /100 WBC (0-0); Total Cells Counted 200
[2017-11-06] MEDS ORDERED: PROPOFOL 10 MG/ML 20 ML VIAL IV ONE (07:35)
[2017-11-06] MEDS ORDERED: SODIUM CHLORIDE 0.9% 500 ML IV ONE ×2 (07:42)
[2017-11-06] MEDS: SODIUM CHLORIDE 0.9% 500 ML IV ONE ×2 (07:42→08:35)
--- NOTE | 2017-11-06 08:03 | P.PCN ---
Date of Procedure: 11/06/17 Procedure(s) Performed: BRIEF HISTORY: Patient is a 62-year-old, pleasant, white female with history of nonalcoholic cirrhosis of the liver diagnosed several years ago and prior history of esophageal variceal bleeding was admitted to the hospital yesterday with acute upper GI bleed. Hemoglobin was 10.2 g/dL and dropped to 8.7 g/dL. She is scheduled for an upper endoscopy to evaluate further. PROCEDURE PERFORMED: Esophagogastroduodenoscopy with variceal ligation. PREOPERATIVE DIAGNOSIS: Acute upper GI bleed. IV sedation per anesthesia. PROCEDURE: After informed consent was obtained, the patient was brought into the endoscopy unit. IV sedation was administered by Anesthesia under continuous monitoring. Initially the Olympus GIF-140 video endoscope was inserted into the mouth. Esophagus intubated without any difficulty. It was gradually advanced into the stomach and duodenum and carefully examined. The bulb and the second part of the duodenum appeared normal. The scope at this time was withdrawn to the stomach, adequately insufflated with air, and upon careful examination, mucosa of the antrum, body, appeared normal. There was no evidence of active bleeding noted. There was 2 small dark blood clots noted in the fundus of the stomach. There was changes in the fundus as well as in the proximal body the stomach consistent with moderate to severe portal hypertensive gastropathy but no active bleeding. The scope was then withdrawn into the esophagus. The GE junction was located at 39 cm from the incisors. There were large mid/distal esophageal varices identified with stigmata of bleeding noted in one of the distal esophageal varix at the GE junction. However there was no active bleeding identified. At this time the scope was removed, the esophageal variceal ligation equipment was introduced to the tip of the scope and esophagus intubated without any difficulty and was gradually advanced into the distal esophagus. Using suction total of 6 bands were deployed starting distally and into the midesophagus in a spiral fashion. Patient tolerated the procedure well. IMPRESSION: 1. Large mid/distal esophageal varices with no active bleeding status post variceal ligation as described above. 2. Moderate to severe portal hypertensive gastropathy. RECOMMENDATIONS: The findings of this examination were discussed with the patient. At this time she will be started on clear liquid diet and will start her on IV Sandostatin drip as well as on prophylactic antibiotics. Monitor CBC every 6 hours.
[2017-11-06] MEDS: PANTOPRAZOLE 40 MG/10 ML VIAL IV SCH (08:47)
[2017-11-06] MEDS: LEVOFLOXACIN 500MG-D5W PMX 500 MG in DEXTROSE/WATER 1 100ML.BAG IVPB SCH (08:47)
[2017-11-06] MEDS: OCTREOTIDE 200 MCG in SODIUM CHLORIDE 0.9% 100 ML IV SCH ×7 (08:47→23:59)
--- NOTE | 2017-11-06 08:56 | HP ---
HISTORY AND PHYSICAL DATE OF ADMISSION: 11/05/2017 I am covering for Dr. Dario Underwood. CHIEF COMPLAINT: Hematemesis. HISTORY OF PRESENT ILLNESS: This 62-year-old woman with a past medical history of multiple medical problems known alcoholic cirrhosis of the liver, being followed by Dr. Berg in the outpatient setting previously had GI bleeding and found to have abdominal varices. Currently the patient is admitted being admitted for 3 episodes of vomiting with coffee-ground and chunks of , which is including food and blood clots and was admitted for evaluation and treatment. The hemoglobin has gone from 11.9 to 9.3. There is no history of fever, rigors. No headache, loss of consciousness or seizures. Dr. Orona is following the patient closely and also planning upper endoscopy. There is no history of fever , rigors or chills. No history of headache, loss of consciousness, seizures at this time. PAST MEDICAL HISTORY: History of asthma, history of CHF, diabetes type 2, history of GERD, history of nonalcoholic cirrhosis of the liver, pancytopenia, thrombocytopenia, history of insulin pump, diabetes, history of back surgery, DJD, history of depression. MEDICATIONS: Prior to admission include home medications are: 1. Vitamin D 625 mg p.o. b.i.d. 2. Aldactone 100 mg p.o. daily. 3. Zoloft 25 mg daily. 4. Bentyl 10 mg b.i.d. 5. K-Dur 10 mEq p.o. daily. 6. Singular 10 mg p.o. daily. 7. Insulin pump. 8. Lasix 40 mg b.i.d. 9. Zetia 10 mg b.i.d. 10.Tylenol 325 mg q.4h p.r.n. ALLERGIES: DOXYCYCLINE, IODINE, SHELLFISH, SULFA AND BEE VENOM. FAMILY HISTORY: History of cancer, dementia, DJD, skin cancer. SOCIAL HISTORY: Previous of history smoking. No history of alcohol intake. REVIEW OF SYSTEMS: ENT: No diminished vision. No diminished hearing. CARDIOVASCULAR: No angina or palpitations. Respiratory: As mentioned earlier. GI: As mentioned earlier. no dysuria. Nervous system: No numbness, weakness. Allergy/Immunology: No asthma or hayfever. Musculoskeletal as mentioned earlier. HEMATOLOGY/ONCOLOGY: No history of anemia. Endocrine: History of diabetes mellitus. No hypothyroidism. Constitutional: As mentioned earlier. Dermatology negative. Rheumatology: Negative. Psychiatric: as mentioned earlier. PHYSICAL EXAMINATION: Alert and oriented x3. Pulse is 101. Blood pressure 130/62 respirations 16, temperature 98.1, pulse ox 97% on room air. HEENT: Conjunctivae normal. Oral mucosa moist. Neck is no jugular venous distention. No carotid bruit. No lymph nodes enlargement. Cardiovascular system: S1, S2 muffled. No S3, no S4. Respiratory: Breath sounds diminished in the bases. No rhonchi. No crackles. ABDOMEN: Soft, nontender. No mass palpable. No guarding. No rigidity. No hepatosplenomegaly. No ascites. Bowel sounds present. No bruit. Legs: No edema and no swelling. NERVOUS SYSTEM: Higher functions as mentioned earlier, moves all 4 limbs, no focal motor or sensory deficits. Lymphatics: No lymph nodes palpable in the neck, axillae or groin. SKIN: No ulcer, rash or bleeding. LAB STUDIES: WBC 4.1, hemoglobin 11.9, 10.9 and 9.3, MCV 101.7, platelets 75, and INR is 1.4. Glucose 137. Total bilirubin is 1.7, AST 44. ASSESSMENT: 1. Acute upper gastrointestinal bleeding with acute blood loss anemia, possibly related to variceal bleeding. 2. Nonalcoholic cirrhosis of the liver. 3. Thrombocytopenia. 4. Coagulopathy secondary to chronic liver disease. 5. Diabetes type 2 on insulin pump. 6. History of asthma. 7. History of congestive heart failure. 8. History of fibromyalgia. 9. History of pancytopenia. 10.History of back surgery. 11.History of cholecystectomy. 12.History of depression. 13.Remote history of nicotine dependence. RECOMMENDATIONS AND DISCUSSION: In this 62-year-old woman who presented with multiple complex medical history, we will follow the patient closely. Continue the current medications, management and symptomatic treatment. Otherwise at this time, gastroenterology evaluation. Possible endoscopy. Monitor hemoglobin every 4 to 6 hours and type and cross 2 units at least. Monitor closely. Prognosis guarded because of multiple complex medical issues. No antiplatelet agents or anticoagulants at this time. Monitor blood sugars closely. Resume the home medications. Guarded prognosis because of multiple complex medical issues and further recommendations to follow. We will hold the home medications until the endoscopies are over and then after that we will resume the medications. Dr. Underwood will follow. MMODL / IJN: [id number] / MTDD
[2017-11-06 12:14] LABS: Glucose,Whole Blood 163 mg/dL (75-99)
--- NOTE | 2017-11-06 12:21 | P.PN ---
Subjective resting in bed without complaint. Patient is post EGD for banding of esophageal varices. Patient to continue on with Dr. Atkins. Plan is for Sandostatin drip expect transfer to ICU for this a Objective - Vital Signs Vital signs: Vital Signs Temp 97.0 F L 11/06/17 10:59 Pulse 96 11/06/17 11:30 Resp 16 11/06/17 10:59 BP 136/67 11/06/17 10:59 Pulse Ox 95 11/06/17 10:59 Intake & Output 11/05/17 11/06/17 11/06/17 18:59 06:59 18:59 Intake Total 780 Output Total 1 Balance -1 780 Weight 86.183 kg 87.2 kg Intake: IV 200 Intake, IV Titration 580 Amount Levofloxacin 500Mg-D5w 100 Pmx 500 mg In Dextrose/ Water 1 100ml.bag @ 100 mls/hr IVPB Q24H [facility] Rx#: [id number] Sodium Chloride 0.9% 1, 480 000 ml @ 120 mls/hr IV . Q8H20M [facility] Rx#:[id number] Output: Urine/Stool Mix 1 Other: Voiding Method Toilet # Voids 1 2 - Constitutional General appearance: Present: obese - EENT Eyes: Present: PERRLA Ears: bilateral: normal - Neck Neck: Present: normal ROM - Respiratory Respiratory: bilateral: CTA - Cardiovascular Rhythm: regular Abnormal Heart Sounds: Present: systolic murmur - Gastrointestinal General gastrointestinal: Present: distended - Integumentary Integumentary: Present: normal - Neurologic Neurologic: Present: CNII-XII intact - Musculoskeletal Musculoskeletal: Present: generalized weakness - Psychiatric Psychiatric: Present: A&O x's 3, appropriate affect, intact judgment & insight - Labs CBC & Chem 7: 11/06/17 05:30 11/06/17 05:30 Labs: Abnormal Lab Results - Last 24 Hours (Table) 11/05/17 11/05/17 11/05/17 Range/Units 17:52 17:57 23:21 RBC 3.12 L 2.78 L (3.80-5.40) m/uL Hgb 10.5 L 9.3 L (11.4-16.0) gm/dL Hct 32.5 L 28.7 L (34.0-46.0) % MCV 104.1 H 103.2 H (80.0-100.0) fL RDW 16.2 H 17.6 H (11.5-15.5) % Plt Count 60 L 57 L (150-450) k/uL Lymphocytes # 0.8 L 0.8 L (1.0-4.8) k/uL Lymphocytes # (Manual) (1.0-4.8) k/uL Nucleated RBCs (0-0) /100 WBC Chloride (98-107) mmol/L Carbon Dioxide (22-30) mmol/L BUN (7-17) mg/dL Glucose (74-99) mg/dL POC Glucose (mg/dL) 235 H (75-99) mg/dL Calcium (8.4-10.2) mg/dL Total Protein (6.3-8.2) g/dL Albumin (3.5-5.0) g/dL 11/06/17 11/06/17 11/06/17 Range/Units 05:30 05:30 06:12 RBC 2.64 L (3.80-5.40) m/uL Hgb 8.7 L (11.4-16.0) gm/dL Hct 26.8 L (34.0-46.0) % MCV 101.7 H (80.0-100.0) fL RDW 17.1 H (11.5-15.5) % Plt Count 60 L (150-450) k/uL Lymphocytes # (1.0-4.8) k/uL Lymphocytes # (Manual) 0.79 L (1.0-4.8) k/uL Nucleated RBCs 1 H (0-0) /100 WBC Chloride 110 H (98-107) mmol/L Carbon Dioxide 21 L (22-30) mmol/L BUN 19 H (7-17) mg/dL Glucose 107 H (74-99) mg/dL POC Glucose (mg/dL) 123 H (75-99) mg/dL Calcium 8.2 L (8.4-10.2) mg/dL Total Protein 5.0 L (6.3-8.2) g/dL Albumin 2.4 L (3.5-5.0) g/dL 11/06/17 Range/Units 12:11 RBC (3.80-5.40) m/uL Hgb (11.4-16.0) gm/dL Hct (34.0-46.0) % MCV (80.0-100.0) fL RDW (11.5-15.5) % Plt Count (150-450) k/uL Lymphocytes # (1.0-4.8) k/uL Lymphocytes # (Manual) (1.0-4.8) k/uL Nucleated RBCs (0-0) /100 WBC Chloride (98-107) mmol/L Carbon Dioxide (22-30) mmol/L BUN (7-17) mg/dL Glucose (74-99) mg/dL POC Glucose (mg/dL) 163 H (75-99) mg/dL Calcium (8.4-10.2) mg/dL Total Protein (6.3-8.2) g/dL Albumin (3.5-5.0) g/dL - Imaging and Cardiology Chest x-ray: report reviewed Assessment and Plan Plan: Assessment Upper GI bleed secondary to esophageal varices post EGD Nonalcoholic cirrhosis Thrombocytopenia and coagulopathy secondary to chronic liver disease History of diabetes type 2 on insulin drip History of congestive heart failure Fibromyalgia Ascites paracentesis scheduled for 11/23/[address] Perkins ordered Sandostatin drip Plan is for the transferred ICU to monitor
[2017-11-06 12:41] LABS: Anisocytosis Slight; Basophils % (A) 1 %; Eosinophils % (A) 1 %; HCT 29.3 % (34.0-46.0); HGB 9.3 gm/dL (11.4-16.0); Hypochromasia Slight; Lymphocytes # (A) 0.5 k/uL (1.0-4.8); Lymphocytes % (A) 12 %; MCH 33.1 pg (25.0-35.0); MCHC 31.6 g/dL (31.0-37.0); MCV 104.5 fL (80.0-100.0); Macrocytosis Moderate; Mean Platelet Volume 10.1; Monocytes # (A) 0.1 k/uL (0-1.0); Monocytes % (A) 3 %; Neutrophils # (A) 3.2 k/uL (1.3-7.7); Neutrophils % (A) 83 %; RBC 2.81 m/uL (3.80-5.40); RDW 17.2 % (11.5-15.5); WBC 3.9 k/uL (3.8-10.6)
[2017-11-06 12:45] LABS: Platelet Count 54 k/uL (150-450)
--- NOTE | 2017-11-06 16:21 | P.CNPUL ---
History of Present Illness Consult date: 11/06/17 Requesting physician: Dario Underwood Reason for consult: other Chief complaint: Acute upper GI bleed History of present illness: Carol is a 62-year-old female patient of Dr. Dario Underwood, who presented to the emergency department on 11/05/2017 with complaints of upper GI hemorrhage, she had 3 episodes of hematemesis with bright red blood at home. 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 Patient follows with Dr. Esther Orona. Her admission hemoglobin was 11.9, which has been gradually trending downward during this admission and is currently at 8.7 on 11/06/2017 at 5:30 in the morning, despite no further episodes of hematemesis, the patient did have a couple episodes of dark tarry stools. Patient has remained hemodynamically stable, has not required any blood transfusions. She had EGD with variceal ligation on 11/05/[address] Orona, tolerated procedure well. She was started on clear liquid diet, and IV Sandostatin drip as well as prophylactic antibiotics. We are seeing her in consultation for critical care management. Review of Systems All systems: negative Constitutional: Denies chills, Denies fever Eyes: denies blurred vision, denies pain Ears, nose, mouth and throat: Denies headache, Denies sore throat Cardiovascular: Denies chest pain, Denies shortness of breath Respiratory: Denies cough Gastrointestinal: Denies abdominal pain, Denies diarrhea, Denies nausea, Denies vomiting Genitourinary: Denies dysuria, Denies hematuria Musculoskeletal: Denies myalgias Integumentary: Denies pruritus, Denies rash Neurological: Denies numbness, Denies weakness Psychiatric: Denies anxiety, Denies depression Endocrine: Denies fatigue, Denies weight change Past Medical History Past Medical History: Asthma, Cancer, Heart Failure, Diabetes Mellitus, Fibromyalgia, Liver Disease, Skin Disorder Additional Past Medical History / Comment(s): Non-ETOH cirrhosis, ascities, esohpogeal varicies, pancytopenia, thrombycytopenia, anemia, IDDM with insulin pump, stable 5 mm nodule L lung being monitored, urinary leakage at times and pt states she has diarrhea much of the time, psoriasis, cervical cancer with hysterectomy. History of Any Multi-Drug Resistant Organisms: None Reported Past Surgical History: Back Surgery, Cholecystectomy, Hysterectomy, Orthopedic Surgery, Tonsillectomy, Tubal Ligation Additional Past Surgical History / Comment(s): Paracentesis's x 3, EGD with banded esophageal varices, colonoscopies, bilateral rotator cuff repairs, bilateral breast bx-benign, back surgery in 2015. Past Anesthesia/Blood Transfusion Reactions: Previous Problems w/ Anesthesia Additional Past Anesthesia/Blood Transfusion Reaction / Comment(s): difficulty breathing when coming out of anesthesia; difficulty waking up. Hypotension with general anesthesia. blood transfusions without reaction. Smoking Status: Former smoker - Past Family History Mother Family Medical History: Cancer, Dementia, Osteoarthritis (OA) Additional Family Medical History / Comment(s): skin cancer. Father Family Medical History: Coronary Artery Disease (CAD) Additional Family Medical History / Comment(s): cabg/pacemaker Brother(s) Family Medical History: Cancer Sister(s) Family Medical History: Cancer Additional Family Medical History / Comment(s): Breast CA. Medications and Allergies Home Medications Medication Instructions Recorded Confirmed Type Montelukast [Singulair] 10 mg PO DAILY 07/10/14 11/05/17 History Ezetimibe [Zetia] 10 mg PO DAILY 09/04/16 11/05/17 History INSULIN LISPRO (For Pump) [humaLOG 0.01 units SQ-PUMP CONTINUOUS 09/04/16 History (For Pump)] Spironolactone [Aldactone] 100 mg PO DAILY 10/05/16 11/05/17 History Propranolol [Inderal] 10 mg PO BID 01/12/17 11/05/17 History Sertraline [Zoloft] 25 mg PO DAILY 01/12/17 11/05/17 History Acetaminophen [Tylenol] 325 mg PO Q4H PRN 09/15/17 11/05/17 History Vitamin D 625mg 625 mg PO BID 09/15/17 11/05/17 History Furosemide [Lasix] 40 mg PO BID #0 09/17/17 11/05/17 Rx Potassium Chloride ER [K-Dur 20] 20 meq PO DAILY #30 tab 09/17/17 11/05/17 Rx Allergies Allergy/AdvReac Type Severity Reaction Status Date / Time doxycycline Allergy Rash/Hives Verified 11/05/17 08:54 iodine Allergy Rash/Hives Verified 11/05/17 08:54 Penicillins Allergy Rash/Hives Verified 11/05/17 08:54 shellfish derived Allergy Rash/Hives Verified 11/05/17 08:54 Sulfa (Sulfonamide Allergy Rash/Hives Verified 11/05/17 08:54 Antibiotics) venom-honey bee Allergy Anaphylaxis Verified 11/05/17 08:54 [bee venom (honey bee)] Physical Exam Vitals: Vital Signs Temp Pulse Pulse Resp BP BP Pulse Ox 11/06/17 14:40 94 102/55 93 L 11/06/17 14:30 94 102/55 93 L 11/06/17 14:20 94 102/55 93 L 11/06/17 14:10 97 102/55 96 11/06/17 14:00 94 138/62 93 L 11/06/17 13:50 97 138/62 89 L 11/06/17 13:40 95 138/62 91 L 11/06/17 13:30 98 138/62 92 L 11/06/17 13:20 94 138/62 91 L 11/06/17 13:10 92 138/62 93 L 11/06/17 13:00 89 114/58 92 L 11/06/17 12:50 92 114/58 91 L 11/06/17 12:40 96 114/58 94 L 11/06/17 12:34 94 114/58 96 11/06/17 11:30 96 11/06/17 10:59 97.0 F L 96 16 136/67 95 11/06/17 08:00 97.2 F L 96 16 123/56 98 11/06/17 04:00 98.6 F 102 H 16 129/61 98 11/06/17 00:00 98.7 F 102 H 16 111/47 98 11/05/17 20:00 97.7 F 101 H 16 113/84 100 Intake and Output 11/06/17 11/06/17 11/06/17 06:59 14:59 22:59 Intake Total 900 Output Total 1 Balance -1 900 Intake: IV 200 Intake, IV Titration 700 Amount Levofloxacin 500Mg-D5w 100 Pmx 500 mg In Dextrose/ Water 1 100ml.bag @ 100 mls/hr IVPB Q24H [facility] Rx#: [id number] Sodium Chloride 0.9% 1, 480 000 ml @ 120 mls/hr IV . Q8H20M [facility] Rx#:[id number] Sodium Chloride 0.9% 500 120 ml As [facility]# :[id number] Output: Urine/Stool Mix 1 Other: Voiding Method Toilet # Voids 2 Weight 87.2 kg GENERAL EXAM: Alert, pleasant 62-year-old white female, comfortable in no apparent distress. HEAD: Normocephalic/atraumatic. EYES: Normal reaction of pupils, equal size. Conjunctiva pink, sclera white. NOSE: Clear with pink turbinates. THROAT: No erythema or exudates. NECK: No masses, no JVD, no thyroid enlargement, no adenopathy. CHEST: No chest wall deformity. Symmetrical expansion. LUNGS: Equal air entry with no crackles, wheeze, rhonchi or dullness. CVS: Regular rate and rhythm, normal S1 and S2, no gallops, no murmurs, no rubs ABDOMEN: Soft, nontender. No hepatosplenomegaly, normal bowel sounds, no guarding or rigidity. EXTREMITIES: No clubbing, no edema, no cyanosis, 2+ pulses and upper and lower extremities. MUSCULOSKELETAL: Muscle strength and tone normal. SPINE: No scoliosis or deformity SKIN: No rashes CENTRAL NERVOUS SYSTEM: Alert and oriented -3. No focal deficits, tone is normal in all 4 extremities. PSYCHIATRIC: Alert and oriented -3. Appropriate affect. Intact judgment and insight. Results - Laboratory Findings CBC and BMP: 11/06/17 12:13 11/06/17 05:30 PT/INR, D-dimer PT 12.8 sec (9.0-12.0) H 11/05/17 08:54 INR 1.4 (<1.2) H 11/05/17 08:54 Abnormal lab findings: Abnormal Labs 11/05/17 11/05/17 11/05/17 08:54 08:54 08:54 RBC 3.51 L Hgb Hct MCV 101.7 H RDW 16.2 H Plt Count 75 L Lymphocytes # 0.7 L Lymphocytes # (Manual) Nucleated RBCs PT 12.8 H INR 1.4 H Chloride Carbon Dioxide BUN 21 H Glucose 137 H POC Glucose (mg/dL) Calcium Total Bilirubin 1.7 H AST 44 H Total Protein 6.0 L Albumin 3.0 L 11/05/17 11/05/17 11/05/17 17:52 17:57 23:21 RBC 3.12 L 2.78 L Hgb 10.5 L 9.3 L Hct 32.5 L 28.7 L MCV 104.1 H 103.2 H RDW 16.2 H 17.6 H Plt Count 60 L 57 L Lymphocytes # 0.8 L 0.8 L Lymphocytes # (Manual) Nucleated RBCs PT INR Chloride Carbon Dioxide BUN Glucose POC Glucose (mg/dL) 235 H Calcium Total Bilirubin AST Total Protein Albumin 11/06/17 11/06/17 11/06/17 05:30 05:30 06:12 RBC 2.64 L Hgb 8.7 L Hct 26.8 L MCV 101.7 H RDW 17.1 H Plt Count 60 L Lymphocytes # Lymphocytes # (Manual) 0.79 L Nucleated RBCs 1 H PT INR Chloride 110 H Carbon Dioxide 21 L BUN 19 H Glucose 107 H POC Glucose (mg/dL) 123 H Calcium 8.2 L Total Bilirubin AST Total Protein 5.0 L Albumin 2.4 L 11/06/17 11/06/17 12:11 12:13 RBC 2.81 L Hgb 9.3 L Hct 29.3 L MCV 104.5 H RDW 17.2 H Plt Count 54 L Lymphocytes # 0.5 L Lymphocytes # (Manual) Nucleated RBCs PT INR Chloride Carbon Dioxide BUN Glucose POC Glucose (mg/dL) 163 H Calcium Total Bilirubin AST Total Protein Albumin - Diagnostic Findings Chest x-ray: report reviewed Assessment and Plan Plan: Assessment: #1. Acute upper GI hemorrhage, secondary to esophageal varices, status post esophageal varices ligation, currently on Sandostatin drip #2. Acute blood loss anemia, secondary to the above, current hemoglobin is 8.7 , patient remains hemodynamically stable, has not required blood transfusions this admission so far. #3. Nonalcoholic cirrhosis of the liver, with ascites, patient has monthly paracentesis. Patient's awaiting evaluation for liver transplantation at [facility] #4. Previous history of upper GI hemorrhage room esophageal varices, with 2 previous esophageal varices banding #5. Thrombocytopenia #6. Coagulopathy, related to chronic liver disease #7. History of asthma, currently there are no signs of active exacerbation #8. History of diabetes on insulin pump #9. Fibromyalgia #10. Depression Plan: Continue close hemodynamic monitoring, continue monitoring for any episodes of hematemesis or melena. Serial CBCs. Continue Sandostatin drip per GI service. Continue Levaquin, IV Protonix, IV 0.9 normal saline at 120 mL per hour. I performed a history & physical examination of the patient and discussed their management with my nurse practitioner, Leticia Wong. I reviewed the nurse practitioner's note and agree with the documented findings and plan of care. Lung sounds are clear, diminished. The findings and the impression was discussed with the patient. I attest to the documentation by the nurse practitioner. Time with Patient: Greater than 30
[2017-11-06 17:15] LABS: Glucose,Whole Blood 169 mg/dL (75-99)
[2017-11-06 18:01] LABS: Anisocytosis Slight; Basophils % (A) 1 %; Eosinophils % (A) 1 %; HCT 26.9 % (34.0-46.0); HGB 8.8 gm/dL (11.4-16.0); Lymphocytes # (A) 0.6 k/uL (1.0-4.8); Lymphocytes % (A) 16 %; MCH 33.9 pg (25.0-35.0); MCHC 32.7 g/dL (31.0-37.0); MCV 103.9 fL (80.0-100.0); Macrocytosis Moderate; Mean Platelet Volume 9.6; Monocytes # (A) 0.2 k/uL (0-1.0); Monocytes % (A) 4 %; Neutrophils # (A) 2.9 k/uL (1.3-7.7); Neutrophils % (A) 77 %; RBC 2.59 m/uL (3.80-5.40); RDW 16.2 % (11.5-15.5); WBC 3.8 k/uL (3.8-10.6)
[2017-11-06 18:05] LABS: Platelet Count 64 k/uL (150-450)
[2017-11-06 20:11] LABS: Glucose,Whole Blood 270 mg/dL (75-99)
[2017-11-06 23:43] LABS: Anisocytosis Slight; Basophils % (A) 1 %; Eosinophils # (A) 0.1 k/uL (0-0.7); Eosinophils % (A) 3 %; HCT 27.6 % (34.0-46.0); HGB 8.9 gm/dL (11.4-16.0); Lymphocytes % (A) 21 %; MCH 33.2 pg (25.0-35.0); MCHC 32.1 g/dL (31.0-37.0); MCV 103.4 fL (80.0-100.0); Macrocytosis Moderate; Mean Platelet Volume 10.4; Monocytes # (A) 0.2 k/uL (0-1.0); Monocytes % (A) 5 %; Neutrophils # (A) 3.2 k/uL (1.3-7.7); Neutrophils % (A) 69 %; RBC 2.67 m/uL (3.80-5.40); RDW 17.2 % (11.5-15.5); WBC 4.7 k/uL (3.8-10.6)
[2017-11-06 23:59] LABS: Platelet Count 55 k/uL (150-450)
[2017-11-07 04:41] LABS: Anisocytosis Slight; Basophils % (A) 1 %; Eosinophils # (A) 0.1 k/uL (0-0.7); Eosinophils % (A) 3 %; HCT 27.3 % (34.0-46.0); HGB 8.7 gm/dL (11.4-16.0); Lymphocytes # (A) 0.9 k/uL (1.0-4.8); Lymphocytes % (A) 20 %; MCH 32.9 pg (25.0-35.0); MCHC 31.8 g/dL (31.0-37.0); MCV 103.6 fL (80.0-100.0); Macrocytosis Moderate; Mean Platelet Volume 9.8; Monocytes # (A) 0.3 k/uL (0-1.0); Monocytes % (A) 6 %; Neutrophils # (A) 3.1 k/uL (1.3-7.7); Neutrophils % (A) 68 %; RBC 2.63 m/uL (3.80-5.40); RDW 17.2 % (11.5-15.5); WBC 4.5 k/uL (3.8-10.6)
[2017-11-07 04:57] LABS: ALT 46 U/L (9-52); AST 56 U/L (14-36); Albumin 2.5 g/dL (3.5-5.0); Alkaline Phosphatase 89 U/L (38-126); Anion Gap 7 mmol/L; Blood Urea Nitrogen 13 mg/dL (7-17); Carbon Dioxide 21 mmol/L (22-30); Chloride 110 mmol/L (98-107); Glucose 132 mg/dL (74-99); Potassium 4.1 mmol/L (3.5-5.1); Sodium 138 mmol/L (137-145); Total Bilirubin 1.2 mg/dL (0.2-1.3); Total Protein 5.2 g/dL (6.3-8.2)
[2017-11-07 05:01] LABS: Platelet Count 71 k/uL (150-450)
[2017-11-07] MEDS: OCTREOTIDE 200 MCG in SODIUM CHLORIDE 0.9% 100 ML IV SCH ×4 (05:25→19:59)
[2017-11-07] MEDS: SODIUM CHLORIDE 0.9% 1,000 ML IV SCH ×3 (05:26→21:00)
[2017-11-07 07:11] LABS: Glucose,Whole Blood 146 mg/dL (75-99)
[2017-11-07] MEDS: INSULIN PUMP MEAL BOLUS 1 UNIT MISC MISCELLANE SCH ×4 (07:32→20:01)
[2017-11-07] MEDS: PANTOPRAZOLE 40 MG/10 ML VIAL IV SCH ×2 (08:14→21:29)
[2017-11-07] MEDS: LEVOFLOXACIN 500MG-D5W PMX 500 MG in DEXTROSE/WATER 1 100ML.BAG IVPB SCH (09:10)
[2017-11-07] MEDS ORDERED: FUROSEMIDE 40 MG TAB PO STA (09:26)
[2017-11-07 09:27] LABS: INR 1.4 (<1.2); Prothrombin Time 13.4 sec (9.0-12.0)
--- NOTE | 2017-11-07 09:32 | P.PN ---
Subjective Progress Note Date: 11/07/17 Principal diagnosis: GI bleed esophageal varices Admitted with acute hematemesis status post EGD yesterday with findings of esophageal varices ligation performed. Intravenous Sandostatin started and observed overnight in the ICU. No episodes of GI bleeding 24 hours. IV Sandostatin continuous. Reports increased abdominal girth. Afebrile. Tolerating clear liquids. Objective - Vital Signs Vital signs: Vital Signs Temp 98.4 F 11/07/17 08:00 Pulse 96 11/07/17 08:00 Resp 16 11/07/17 08:00 BP 125/54 11/07/17 08:00 Pulse Ox 94 L 11/07/17 08:00 Intake & Output 11/06/17 11/07/17 11/07/17 18:59 06:59 18:59 Intake Total 2181 1604.546 240 Balance 2181 1604.546 240 Weight 92.1 kg Intake: IV 200 1320 240 Sodium Chloride 0.9% 1, 1320 240 000 ml @ 120 mls/hr IV . Q8H20M [facility] Rx#:[id number] Intake, IV Titration 1401 284.546 Amount Levofloxacin 500Mg-D5w 100 Pmx 500 mg In Dextrose/ Water 1 100ml.bag @ 100 mls/hr IVPB Q24H [facility] Rx#: [id number] Octreotide 200 mcg In 101 164.546 Sodium Chloride 0.9% 100 ml @ 50 MCG/HR 25.25 mls/ hr IV .Q4H [facility] Rx#: [id number] Sodium Chloride 0.9% 1, 720 120 000 ml @ 120 mls/hr IV . Q8H20M [facility] Rx#:[id number] Sodium Chloride 0.9% 500 480 ml As IV .[facility] Rx# :[id number] Oral 580 Other: Voiding Method Toilet # Voids 1 # Bowel Movements 1 - Exam General appearance: The patient is alert, oriented, in no acute distress. HET: Head is normocephalic and atraumatic. Pupils are equal and reactive. Oropharynx is clear without lesions. Neck: Supple without lymphadenopathy. Trachea midline. Heart: S1 S2. Regular rate and rhythm. Lungs: No crackles or wheezes are heard. Abdomen: Soft, distended with moderate ascites with bowel sounds. No peritoneal signs. No palpable organomegaly or masses. Extremities: Normal skin color and turgor. No cyanosis, rash, ulceration, clubbing, or edema. Radial and pedal pulses are 2/4 bilaterally. Neurological: No focal deficits. Strength and sensation are grossly intact. - Labs CBC & Chem 7: 11/07/17 03:42 11/07/17 03:42 Labs: Abnormal Lab Results - Last 24 Hours (Table) 11/06/17 11/06/17 11/06/17 Range/Units 12:11 12:13 17:12 RBC 2.81 L (3.80-5.40) m/uL Hgb 9.3 L (11.4-16.0) gm/dL Hct 29.3 L (34.0-46.0) % MCV 104.5 H (80.0-100.0) fL RDW 17.2 H (11.5-15.5) % Plt Count 54 L (150-450) k/uL Lymphocytes # 0.5 L (1.0-4.8) k/uL Chloride (98-107) mmol/L Carbon Dioxide (22-30) mmol/L Glucose (74-99) mg/dL POC Glucose (mg/dL) 163 H 169 H (75-99) mg/dL Calcium (8.4-10.2) mg/dL AST (14-36) U/L Total Protein (6.3-8.2) g/dL Albumin (3.5-5.0) g/dL 11/06/17 11/06/17 11/06/17 Range/Units 17:36 20:09 23:30 RBC 2.59 L 2.67 L (3.80-5.40) m/uL Hgb 8.8 L 8.9 L (11.4-16.0) gm/dL Hct 26.9 L 27.6 L (34.0-46.0) % MCV 103.9 H 103.4 H (80.0-100.0) fL RDW 16.2 H 17.2 H (11.5-15.5) % Plt Count 64 L 55 L (150-450) k/uL Lymphocytes # 0.6 L (1.0-4.8) k/uL Chloride (98-107) mmol/L Carbon Dioxide (22-30) mmol/L Glucose (74-99) mg/dL POC Glucose (mg/dL) 270 H (75-99) mg/dL Calcium (8.4-10.2) mg/dL AST (14-36) U/L Total Protein (6.3-8.2) g/dL Albumin (3.5-5.0) g/dL 11/07/17 11/07/17 11/07/17 Range/Units 03:42 03:42 07:10 RBC 2.63 L (3.80-5.40) m/uL Hgb 8.7 L (11.4-16.0) gm/dL Hct 27.3 L (34.0-46.0) % MCV 103.6 H (80.0-100.0) fL RDW 17.2 H (11.5-15.5) % Plt Count 71 L (150-450) k/uL Lymphocytes # 0.9 L (1.0-4.8) k/uL Chloride 110 H (98-107) mmol/L Carbon Dioxide 21 L (22-30) mmol/L Glucose 132 H (74-99) mg/dL POC Glucose (mg/dL) 146 H (75-99) mg/dL Calcium 8.0 L (8.4-10.2) mg/dL AST 56 H (14-36) U/L Total Protein 5.2 L (6.3-8.2) g/dL Albumin 2.5 L (3.5-5.0) g/dL Assessment and Plan (1) Upper GI bleed Narrative/Plan: Secondary to portal gastropathy. Nonbleeding esophageal varices status post ligation. Current Visit: No Status: Acute Priority: High Code(s): K92.2 - GASTROINTESTINAL HEMORRHAGE, UNSPECIFIED SNOMED Code(s): 27820076 (2) Esophageal varices in cirrhosis Current Visit: No Status: Chronic Code(s): K74.60 - UNSPECIFIED CIRRHOSIS OF LIVER; I85.10 - SECONDARY ESOPHAGEAL VARICES WITHOUT BLEEDING SNOMED Code(s ): 587286806 (3) Portal hypertension Current Visit: Yes Status: Acute Code(s): K76.6 - PORTAL HYPERTENSION SNOMED Code(s): 99809693 (4) Hematemesis Current Visit: Yes Status: Acute Code(s): K92.0 - HEMATEMESIS SNOMED Code( s): 6847667 (5) Ascites Current Visit: No Status: Chronic Code(s): R18.8 - OTHER ASCITES SNOMED Code(s): 092872711 (6) Liver cirrhosis secondary to nonalcoholic steatohepatitis (YEUNG) Current Visit: No Status: Chronic Code(s): K75.81 - NONALCOHOLIC STEATOHEPATITIS (YEUNG); K74.60 - UNSPECIFIED CIRRHOSIS OF LIVER SNOMED Code(s) : 52030481 (7) Acute blood loss anemia Current Visit: Yes Status: Acute Code(s): D62 - ACUTE POSTHEMORRHAGIC ANEMIA SNOMED Code(s): 548706795 (8) Coagulopathy Current Visit: Yes Status: Chronic Code(s): D68.9 - COAGULATION DEFECT, UNSPECIFIED SNOMED Code(s): 88833255 (9) Thrombocytopenia Current Visit: Yes Status: Chronic Code(s): D69.6 - THROMBOCYTOPENIA, UNSPECIFIED SNOMED Code(s): 864113215 Plan: 1. Full liquid diet. 2. Continue IV Sandostatin for another 24 hours; reevaluate in a.m. 3. Resume home medications Lasix 40 mg twice a day and Aldactone 100 mg daily. 4. If abdominal ascites does not improve with diuretic therapy will proceed with therapeutic paracentesis tomorrow. 5. Obtain ammonia level and PT/INR. CBC monitoring. IV Protonix 40 mg every 12. Assessment and plan a care discussed with Dr. Orona
[2017-11-07] MEDS: SPIRONOLACTONE 25 MG TAB PO SCH (10:29)
--- NOTE | 2017-11-07 11:30 | P.PN ---
Subjective Progress Note Date: 11/07/17 Principal diagnosis: Acute upper GI bleeding Carol is a 62-year-old female patient of Dr. Dario Underwood, who presented to the emergency department on 11/05/2017 with complaints of upper GI hemorrhage, she had 3 episodes of hematemesis with bright red blood at home. 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 Patient follows with Dr. Esther Orona. Her admission hemoglobin was 11.9, which has been gradually trending downward during this admission and is currently at 8.7 on 11/06/2017 at 5:30 in the morning, despite no further episodes of hematemesis, the patient did have a couple episodes of dark tarry stools. Patient has remained hemodynamically stable, has not required any blood transfusions. She had EGD with variceal ligation on 11/05/[address] Orona, tolerated procedure well. She was started on clear liquid diet, and IV Sandostatin drip as well as prophylactic antibiotics. We are seeing her in consultation for critical care management. Reevaluated today on 11/07/2017, patient is doing well, her hemoglobin is stable , no evidence of active bleeding, however the patient remains on Sandostatin, and she will remain in the ICU for the next 24 hours. No hemodynamic issues overnight, and no active bleeding was reported overnight. Hemoglobin is 8.7 today, 8.9 yesterday, basic metabolic profile is normal renal profile is normal. INR is 1.4. Objective - Vital Signs Vital signs: Vital Signs Temp 98.4 F 11/07/17 08:00 Pulse 87 11/07/17 10:00 Resp 16 11/07/17 10:00 BP 125/54 11/07/17 08:00 Pulse Ox 94 L 11/07/17 08:00 Intake & Output 11/06/17 11/07/17 11/07/17 18:59 06:59 18:59 Intake Total 2181 1604.546 681 Balance 2181 1604.546 681 Weight 92.1 kg Intake: IV 200 1320 480 Sodium Chloride 0.9% 1, 1320 480 000 ml @ 120 mls/hr IV . Q8H20M [facility] Rx#:[id number] Intake, IV Titration 1401 284.546 201 Amount Levofloxacin 500Mg-D5w 100 100 Pmx 500 mg In Dextrose/ Water 1 100ml.bag @ 100 mls/hr IVPB Q24H [facility] Rx#: [id number] Octreotide 200 mcg In 101 164.546 101 Sodium Chloride 0.9% 100 ml @ 50 MCG/HR 25.25 mls/ hr IV .Q4H [facility] Rx#: [id number] Sodium Chloride 0.9% 1, 720 120 000 ml @ 120 mls/hr IV . Q8H20M [facility] Rx#:[id number] Sodium Chloride 0.9% 500 480 ml As IV .[facility] Rx# :[id number] Oral 580 Other: Voiding Method Toilet Toilet # Voids 1 1 # Bowel Movements 1 - Exam GENERAL EXAM: Alert, pleasant 62-year-old white female, comfortable in no apparent distress. HEAD: Normocephalic/atraumatic. EYES: Normal reaction of pupils, equal size. Conjunctiva pink, sclera white. NOSE: Clear with pink turbinates. THROAT: No erythema or exudates. NECK: No masses, no JVD, no thyroid enlargement, no adenopathy. CHEST: No chest wall deformity. Symmetrical expansion. LUNGS: Equal air entry with no crackles, wheeze, rhonchi or dullness. CVS: Regular rate and rhythm, normal S1 and S2, no gallops, no murmurs, no rubs ABDOMEN: Soft, nontender. No hepatosplenomegaly, normal bowel sounds, no guarding or rigidity. EXTREMITIES: No clubbing, no edema, no cyanosis, 2+ pulses and upper and lower extremities. MUSCULOSKELETAL: Muscle strength and tone normal. SPINE: No scoliosis or deformity SKIN: No rashes CENTRAL NERVOUS SYSTEM: Alert and oriented -3. No focal deficits, tone is normal in all 4 extremities. PSYCHIATRIC: Alert and oriented -3. Appropriate affect. Intact judgment and insight. - Labs CBC & Chem 7: 11/07/17 03:42 11/07/17 03:42 Labs: Abnormal Lab Results - Last 24 Hours (Table) 11/06/17 11/06/17 11/06/17 Range/Units 12:11 12:13 17:12 RBC 2.81 L (3.80-5.40) m/uL Hgb 9.3 L (11.4-16.0) gm/dL Hct 29.3 L (34.0-46.0) % MCV 104.5 H (80.0-100.0) fL RDW 17.2 H (11.5-15.5) % Plt Count 54 L (150-450) k/uL Lymphocytes # 0.5 L (1.0-4.8) k/uL PT (9.0-12.0) sec INR (<1.2) Chloride (98-107) mmol/L Carbon Dioxide (22-30) mmol/L Glucose (74-99) mg/dL POC Glucose (mg/dL) 163 H 169 H (75-99) mg/dL Calcium (8.4-10.2) mg/dL AST (14-36) U/L Ammonia (<30) umol/L Total Protein (6.3-8.2) g/dL Albumin (3.5-5.0) g/dL 11/06/17 11/06/17 11/06/17 Range/Units 17:36 20:09 23:30 RBC 2.59 L 2.67 L (3.80-5.40) m/uL Hgb 8.8 L 8.9 L (11.4-16.0) gm/dL Hct 26.9 L 27.6 L (34.0-46.0) % MCV 103.9 H 103.4 H (80.0-100.0) fL RDW 16.2 H 17.2 H (11.5-15.5) % Plt Count 64 L 55 L (150-450) k/uL Lymphocytes # 0.6 L (1.0-4.8) k/uL PT (9.0-12.0) sec INR (<1.2) Chloride (98-107) mmol/L Carbon Dioxide (22-30) mmol/L Glucose (74-99) mg/dL POC Glucose (mg/dL) 270 H (75-99) mg/dL Calcium (8.4-10.2) mg/dL AST (14-36) U/L Ammonia (<30) umol/L Total Protein (6.3-8.2) g/dL Albumin (3.5-5.0) g/dL 11/07/17 11/07/17 11/07/17 Range/Units 03:42 03:42 07:10 RBC 2.63 L (3.80-5.40) m/uL Hgb 8.7 L (11.4-16.0) gm/dL Hct 27.3 L (34.0-46.0) % MCV 103.6 H (80.0-100.0) fL RDW 17.2 H (11.5-15.5) % Plt Count 71 L (150-450) k/uL Lymphocytes # 0.9 L (1.0-4.8) k/uL PT (9.0-12.0) sec INR (<1.2) Chloride 110 H (98-107) mmol/L Carbon Dioxide 21 L (22-30) mmol/L Glucose 132 H (74-99) mg/dL POC Glucose (mg/dL) 146 H (75-99) mg/dL Calcium 8.0 L (8.4-10.2) mg/dL AST 56 H (14-36) U/L Ammonia (<30) umol/L Total Protein 5.2 L (6.3-8.2) g/dL Albumin 2.5 L (3.5-5.0) g/dL 11/07/17 11/07/17 Range/Units 09:11 09:11 RBC (3.80-5.40) m/uL Hgb (11.4-16.0) gm/dL Hct (34.0-46.0) % MCV (80.0-100.0) fL RDW (11.5-15.5) % Plt Count (150-450) k/uL Lymphocytes # (1.0-4.8) k/uL PT 13.4 H (9.0-12.0) sec INR 1.4 H (<1.2) Chloride (98-107) mmol/L Carbon Dioxide (22-30) mmol/L Glucose (74-99) mg/dL POC Glucose (mg/dL) (75-99) mg/dL Calcium (8.4-10.2) mg/dL AST (14-36) U/L Ammonia 47 H (<30) umol/L Total Protein (6.3-8.2) g/dL Albumin (3.5-5.0) g/dL Assessment and Plan Assessment: #1. Acute upper GI hemorrhage, secondary to esophageal varices, status post esophageal varices ligation, currently on Sandostatin drip #2. Acute blood loss anemia, secondary to the above, current hemoglobin is 8.7 , patient remains hemodynamically stable, has not required blood transfusions this admission so far. #3. Nonalcoholic cirrhosis of the liver, with ascites, patient has monthly paracentesis. Patient's awaiting evaluation for liver transplantation at [facility] #4. Previous history of upper GI hemorrhage room esophageal varices, with 2 previous esophageal varices banding #5. Thrombocytopenia #6. Coagulopathy, related to chronic liver disease #7. History of asthma, currently there are no signs of active exacerbation #8. History of diabetes on insulin pump #9. Fibromyalgia #10. Depression Recommendation: Continue present supportive care measures, continue to monitor in the ICU as long as she is receiving Sandostatin, possible transfer out of the ICU in the next 24 hours. We'll continue to follow. Time with Patient: Less than 30
--- NOTE | 2017-11-07 12:12 | P.PN ---
Subjective Principal diagnosis: Patient remains in intensive care unit for infusion of Sandostatin. Patient up ambulating without difficulty. Noted increased distention of abdomen there is plan for paracentesis tomorrow. Objective - Vital Signs Vital signs: Vital Signs Temp 98.4 F 11/07/17 08:00 Pulse 87 11/07/17 10:00 Resp 16 11/07/17 10:00 BP 125/54 11/07/17 08:00 Pulse Ox 94 L 11/07/17 08:00 Intake & Output 11/06/17 11/07/17 11/07/17 18:59 06:59 18:59 Intake Total 2181 1604.546 681 Balance 2181 1604.546 681 Weight 92.1 kg Intake: IV 200 1320 480 Sodium Chloride 0.9% 1, 1320 480 000 ml @ 120 mls/hr IV . Q8H20M [facility] Rx#:[id number] Intake, IV Titration 1401 284.546 201 Amount Levofloxacin 500Mg-D5w 100 100 Pmx 500 mg In Dextrose/ Water 1 100ml.bag @ 100 mls/hr IVPB Q24H [facility] Rx#: [id number] Octreotide 200 mcg In 101 164.546 101 Sodium Chloride 0.9% 100 ml @ 50 MCG/HR 25.25 mls/ hr IV .Q4H [facility] Rx#: [id number] Sodium Chloride 0.9% 1, 720 120 000 ml @ 120 mls/hr IV . Q8H20M [facility] Rx#:[id number] Sodium Chloride 0.9% 500 480 ml As IV .[facility] Rx# :[id number] Oral 580 Other: Voiding Method Toilet Toilet # Voids 1 1 # Bowel Movements 1 - Constitutional General appearance: Present: obese - EENT Eyes: Present: PERRLA Ears: bilateral: normal - Neck Neck: Present: normal ROM - Respiratory Respiratory: bilateral: CTA - Cardiovascular Rhythm: regular - Gastrointestinal General gastrointestinal: Present: distended - Integumentary Integumentary: Present: normal - Neurologic Neurologic: Present: CNII-XII intact - Musculoskeletal Musculoskeletal: Present: generalized weakness - Psychiatric Psychiatric: Present: A&O x's 3, appropriate affect, intact judgment & insight - Labs CBC & Chem 7: 11/07/17 03:42 11/07/17 03:42 Labs: Abnormal Lab Results - Last 24 Hours (Table) 11/06/17 11/06/17 11/06/17 Range/Units 12:11 12:13 17:12 RBC 2.81 L (3.80-5.40) m/uL Hgb 9.3 L (11.4-16.0) gm/dL Hct 29.3 L (34.0-46.0) % MCV 104.5 H (80.0-100.0) fL RDW 17.2 H (11.5-15.5) % Plt Count 54 L (150-450) k/uL Lymphocytes # 0.5 L (1.0-4.8) k/uL PT (9.0-12.0) sec INR (<1.2) Chloride (98-107) mmol/L Carbon Dioxide (22-30) mmol/L Glucose (74-99) mg/dL POC Glucose (mg/dL) 163 H 169 H (75-99) mg/dL Calcium (8.4-10.2) mg/dL AST (14-36) U/L Ammonia (<30) umol/L Total Protein (6.3-8.2) g/dL Albumin (3.5-5.0) g/dL 11/06/17 11/06/17 11/06/17 Range/Units 17:36 20:09 23:30 RBC 2.59 L 2.67 L (3.80-5.40) m/uL Hgb 8.8 L 8.9 L (11.4-16.0) gm/dL Hct 26.9 L 27.6 L (34.0-46.0) % MCV 103.9 H 103.4 H (80.0-100.0) fL RDW 16.2 H 17.2 H (11.5-15.5) % Plt Count 64 L 55 L (150-450) k/uL Lymphocytes # 0.6 L (1.0-4.8) k/uL PT (9.0-12.0) sec INR (<1.2) Chloride (98-107) mmol/L Carbon Dioxide (22-30) mmol/L Glucose (74-99) mg/dL POC Glucose (mg/dL) 270 H (75-99) mg/dL Calcium (8.4-10.2) mg/dL AST (14-36) U/L Ammonia (<30) umol/L Total Protein (6.3-8.2) g/dL Albumin (3.5-5.0) g/dL 11/07/17 11/07/17 11/07/17 Range/Units 03:42 03:42 07:10 RBC 2.63 L (3.80-5.40) m/uL Hgb 8.7 L (11.4-16.0) gm/dL Hct 27.3 L (34.0-46.0) % MCV 103.6 H (80.0-100.0) fL RDW 17.2 H (11.5-15.5) % Plt Count 71 L (150-450) k/uL Lymphocytes # 0.9 L (1.0-4.8) k/uL PT (9.0-12.0) sec INR (<1.2) Chloride 110 H (98-107) mmol/L Carbon Dioxide 21 L (22-30) mmol/L Glucose 132 H (74-99) mg/dL POC Glucose (mg/dL) 146 H (75-99) mg/dL Calcium 8.0 L (8.4-10.2) mg/dL AST 56 H (14-36) U/L Ammonia (<30) umol/L Total Protein 5.2 L (6.3-8.2) g/dL Albumin 2.5 L (3.5-5.0) g/dL 11/07/17 11/07/17 Range/Units 09:11 09:11 RBC (3.80-5.40) m/uL Hgb (11.4-16.0) gm/dL Hct (34.0-46.0) % MCV (80.0-100.0) fL RDW (11.5-15.5) % Plt Count (150-450) k/uL Lymphocytes # (1.0-4.8) k/uL PT 13.4 H (9.0-12.0) sec INR 1.4 H (<1.2) Chloride (98-107) mmol/L Carbon Dioxide (22-30) mmol/L Glucose (74-99) mg/dL POC Glucose (mg/dL) (75-99) mg/dL Calcium (8.4-10.2) mg/dL AST (14-36) U/L Ammonia 47 H (<30) umol/L Total Protein (6.3-8.2) g/dL Albumin (3.5-5.0) g/dL Assessment and Plan Plan: Assessment Upper GI bleed secondary to esophageal varices patient post EGD and ligation Thrombocytopenia and coagulopathy secondary to chronic liver disease History of congestive heart failure Diabetes type 2 insulin pump Fibromyalgia 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 Orona Plan for paracentesis tomorrow
[2017-11-07] MEDS: LACTULOSE 20 GM/30 ML CUP PO SCH (15:22)
[2017-11-07 15:23] LABS: Glucose,Whole Blood 182 mg/dL (75-99)
[2017-11-07] MEDS: FUROSEMIDE 40 MG TAB PO SCH (17:29)
[2017-11-07 17:31] LABS: Glucose,Whole Blood 132 mg/dL (75-99)
[2017-11-07 19:59] LABS: Glucose,Whole Blood 145 mg/dL (75-99)
[2017-11-07] MEDS: OCTREOTIDE 500 MCG in SODIUM CHLORIDE 0.9% 250 ML IV SCH (21:30)
[2017-11-08] MEDS: LACTULOSE 20 GM/30 ML CUP PO SCH ×2 (00:09→08:00)
[2017-11-08 03:12] LABS: Glucose,Whole Blood 47 mg/dL (75-99)
[2017-11-08 03:40] LABS: Glucose,Whole Blood 77 mg/dL (75-99)
[2017-11-08 04:29] LABS: Anisocytosis Slight; Basophils % (A) 0 %; Eosinophils # (A) 0.1 k/uL (0-0.7); Eosinophils % (A) 4 %; HCT 25.8 % (34.0-46.0); HGB 8.3 gm/dL (11.4-16.0); Lymphocytes # (A) 0.6 k/uL (1.0-4.8); Lymphocytes % (A) 20 %; MCH 33.8 pg (25.0-35.0); MCV 105.6 fL (80.0-100.0); Macrocytosis Moderate; Mean Platelet Volume 9.6; Monocytes # (A) 0.1 k/uL (0-1.0); Monocytes % (A) 5 %; Neutrophils # (A) 1.9 k/uL (1.3-7.7); Neutrophils % (A) 70 %; RBC 2.45 m/uL (3.80-5.40); RDW 16.8 % (11.5-15.5); WBC 2.7 k/uL (3.8-10.6)
[2017-11-08 04:35] LABS: ALT 49 U/L (9-52); AST 60 U/L (14-36); Albumin 2.5 g/dL (3.5-5.0); Alkaline Phosphatase 80 U/L (38-126); Anion Gap 9 mmol/L; Blood Urea Nitrogen 9 mg/dL (7-17); Calcium 7.7 mg/dL (8.4-10.2); Carbon Dioxide 23 mmol/L (22-30); Chloride 106 mmol/L (98-107); Glucose 106 mg/dL (74-99); Sodium 138 mmol/L (137-145); Total Protein 5.2 g/dL (6.3-8.2)
[2017-11-08 04:36] LABS: Platelet Count 53 k/uL (150-450)
[2017-11-08] MEDS ORDERED: Potassium Replacement Protocol 1 EACH MISC MISCELLANE PRN (04:46)
[2017-11-08] MEDS: POTASSIUM CHLORIDE ER 20 MEQ TAB.ER PO SCH ×2 (05:13→06:32)
[2017-11-08] MEDS ORDERED: Magnesium Replacement Protocol 1 EACH MISC MISCELLANE PRN (05:15)
[2017-11-08] MEDS: MAGNESIUM SULFATE-D5W PMX 1 GM in DEXTROSE/WATER 1 100ML.BAG IVPB SCH ×2 (06:32→07:56)
[2017-11-08 07:06] LABS: Glucose,Whole Blood 91 mg/dL (75-99)
[2017-11-08] MEDS: SODIUM CHLORIDE 0.9% 1,000 ML IV SCH (07:42)
[2017-11-08] MEDS: INSULIN PUMP MEAL BOLUS 1 UNIT MISC MISCELLANE SCH ×4 (07:56→20:10)
[2017-11-08] MEDS: SPIRONOLACTONE 25 MG TAB PO SCH (07:58)
[2017-11-08] MEDS: PANTOPRAZOLE 40 MG/10 ML VIAL IV SCH ×2 (07:59→20:03)
[2017-11-08] MEDS: FUROSEMIDE 40 MG TAB PO SCH ×2 (07:59→17:38)
[2017-11-08] MEDS ORDERED: OCTREOTIDE 200 MCG in SODIUM CHLORIDE 0.9% 100 ML IV SCH (08:15)
[2017-11-08] MEDS: LEVOFLOXACIN 500MG-D5W PMX 500 MG in DEXTROSE/WATER 1 100ML.BAG IVPB SCH (08:15)
[2017-11-08 09:14] VITALS: BMI 33.3
--- NOTE | 2017-11-08 10:12 | P.PN ---
Subjective Progress Note Date: 11/08/17 Principal diagnosis: GI bleed esophageal varices Admitted with acute hematemesis status post EGD findings of esophageal varices ligation performed. Receiving intravenous Sandostatin. No episodes of GI bleeding more than 48 hours. Reports increased abdominal girth yesterday home diuretics started with minimal improvement. Afebrile. Tolerating full liquids. Hemoglobin 8.3. Platelet 53,000. INR 1.4 yesterday. Ammonia yesterday 47 started on lactulose with multiple bowel movements. Potassium 3.0. Magnesium 1.7. Magnesium potassium replacement this morning. Repeat ammonia 20. Objective - Vital Signs Vital signs: Vital Signs Temp 97.9 F 11/08/17 08:00 Pulse 103 H 11/07/17 18:00 Resp 18 11/08/17 08:00 BP 97/50 11/08/17 08:00 Pulse Ox 100 11/08/17 08:00 Intake & Output 11/07/17 11/08/17 11/08/17 18:59 06:59 18:59 Intake Total 1622 1440 560 Balance 1622 1440 560 Weight 90.7 kg 90.7 kg Intake: IV 1320 1440 360 Sodium Chloride 0.9% 1, 1320 1440 360 000 ml @ 120 mls/hr IV . Q8H20M [facility] Rx#:[id number] Intake, IV Titration 302 200 Amount Levofloxacin 500Mg-D5w 100 100 Pmx 500 mg In Dextrose/ Water 1 100ml.bag @ 100 mls/hr IVPB Q24H [facility] Rx#: [id number] Magnesium Sulfate-D5w Pmx 100 1 gm In Dextrose/Water 1 100ml.bag @ 100 mls/hr IVPB Q1H [facility] Rx#: [id number] Octreotide 200 mcg In 202 Sodium Chloride 0.9% 100 ml @ 50 MCG/HR 25.25 mls/ hr IV .Q4H [facility] Rx#: [id number] Other: Voiding Method Toilet Toilet Toilet # Voids 1 1 1 # Bowel Movements 1 1 1 - Exam General appearance: The patient is alert, oriented, in no acute distress. HET: Head is normocephalic and atraumatic. Pupils are equal and reactive. Oropharynx is clear without lesions. Neck: Supple without lymphadenopathy. Trachea midline. Heart: S1 S2. Regular rate and rhythm. Lungs: No crackles or wheezes are heard. Abdomen: Soft, distended with moderate ascites with bowel sounds. No peritoneal signs. No palpable organomegaly or masses. Extremities: Normal skin color and turgor. No cyanosis, rash, ulceration, clubbing, or edema. Radial and pedal pulses are 2/4 bilaterally. Neurological: No focal deficits. Strength and sensation are grossly intact. - Labs CBC & Chem 7: 11/08/17 03:58 11/08/17 03:58 Labs: Abnormal Lab Results - Last 24 Hours (Table) 11/07/17 11/07/17 11/07/17 Range/Units 15:20 17:24 19:57 WBC (3.8-10.6) k/uL RBC (3.80-5.40) m/uL Hgb (11.4-16.0) gm/dL Hct (34.0-46.0) % MCV (80.0-100.0) fL RDW (11.5-15.5) % Plt Count (150-450) k/uL Lymphocytes # (1.0-4.8) k/uL Potassium (3.5-5.1) mmol/L Glucose (74-99) mg/dL POC Glucose (mg/dL) 182 H 132 H 145 H (75-99) mg/dL Calcium (8.4-10.2) mg/dL AST (14-36) U/L Total Protein (6.3-8.2) g/dL Albumin (3.5-5.0) g/dL 11/08/17 11/08/17 11/08/17 Range/Units 03:09 03:58 03:58 WBC 2.7 L (3.8-10.6) k/uL RBC 2.45 L (3.80-5.40) m/uL Hgb 8.3 L (11.4-16.0) gm/dL Hct 25.8 L (34.0-46.0) % MCV 105.6 H (80.0-100.0) fL RDW 16.8 H (11.5-15.5) % Plt Count 53 L (150-450) k/uL Lymphocytes # 0.6 L (1.0-4.8) k/uL Potassium 3.0 L* (3.5-5.1) mmol/L Glucose 106 H (74-99) mg/dL POC Glucose (mg/dL) 47 L (75-99) mg/dL Calcium 7.7 L (8.4-10.2) mg/dL AST 60 H (14-36) U/L Total Protein 5.2 L (6.3-8.2) g/dL Albumin 2.5 L (3.5-5.0) g/dL Assessment and Plan (1) Upper GI bleed Narrative/Plan: Secondary to portal gastropathy. Nonbleeding esophageal varices status post ligation. Current Visit: No Status: Acute Priority: High Code(s): K92.2 - GASTROINTESTINAL HEMORRHAGE, UNSPECIFIED SNOMED Code(s): 18755107 (2) Esophageal varices in cirrhosis Current Visit: No Status: Chronic Code(s): K74.60 - UNSPECIFIED CIRRHOSIS OF LIVER; I85.10 - SECONDARY ESOPHAGEAL VARICES WITHOUT BLEEDING SNOMED Code(s ): 004369025 (3) Portal hypertension Current Visit: Yes Status: Acute Code(s): K76.6 - PORTAL HYPERTENSION SNOMED Code(s): 83853799 (4) Hematemesis Current Visit: Yes Status: Acute Code(s): K92.0 - HEMATEMESIS SNOMED Code( s): 0355218 (5) Ascites Current Visit: No Status: Chronic Code(s): R18.8 - OTHER ASCITES SNOMED Code(s): 783073334 (6) Liver cirrhosis secondary to nonalcoholic steatohepatitis (YEUNG) Current Visit: No Status: Chronic Code(s): K75.81 - NONALCOHOLIC STEATOHEPATITIS (YEUNG); K74.60 - UNSPECIFIED CIRRHOSIS OF LIVER SNOMED Code(s) : 65275227 (7) Acute blood loss anemia Current Visit: Yes Status: Acute Code(s): D62 - ACUTE POSTHEMORRHAGIC ANEMIA SNOMED Code(s): 733787382 (8) Coagulopathy Current Visit: Yes Status: Chronic Code(s): D68.9 - COAGULATION DEFECT, UNSPECIFIED SNOMED Code(s): 46793801 (9) Thrombocytopenia Current Visit: Yes Status: Chronic Code(s): D69.6 - THROMBOCYTOPENIA, UNSPECIFIED SNOMED Code(s): 972419209 (10) Hypokalemia Narrative/Plan: Secondary to diarrhea Current Visit: Yes Status: Acute Code(s): E87.6 - HYPOKALEMIA SNOMED Code( s): 41633505 Plan: 1. We'll discontinue lactulose ammonia has normalized patient was having multiple bowel movements. 2. Therapeutic paracentesis today. Case with this was discussed with interventional radiologist Dr. Zamudio he's requesting platelet transfusion prior to procedure. 3. Discontinue IV Sandostatin. Continue diuretics. 4. May transfer to medical floor. 5. Protonix 40 g IV twice a day. 6. CBC monitoring. 7. Will advance to low-salt diet. Assessment and plan a care discussed with Dr. Orona
--- NOTE | 2017-11-08 10:24 | P.PN ---
Subjective Progress Note Date: 11/08/17 Principal diagnosis: Acute upper GI bleeding Carol is a 62-year-old female patient of Dr. Dario Underwood, who presented to the emergency department on 11/05/2017 with complaints of upper GI hemorrhage, she had 3 episodes of hematemesis with bright red blood at home. 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 Patient follows with Dr. Esther Orona. Her admission hemoglobin was 11.9, which has been gradually trending downward during this admission and is currently at 8.7 on 11/06/2017 at 5:30 in the morning, despite no further episodes of hematemesis, the patient did have a couple episodes of dark tarry stools. Patient has remained hemodynamically stable, has not required any blood transfusions. She had EGD with variceal ligation on 11/05/[address] Orona, tolerated procedure well. She was started on clear liquid diet, and IV Sandostatin drip as well as prophylactic antibiotics. We are seeing her in consultation for critical care management. Reevaluated today on 11/07/2017, patient is doing well, her hemoglobin is stable , no evidence of active bleeding, however the patient remains on Sandostatin, and she will remain in the ICU for the next 24 hours. No hemodynamic issues overnight, and no active bleeding was reported overnight. Hemoglobin is 8.7 today, 8.9 yesterday, basic metabolic profile is normal renal profile is normal. INR is 1.4. Reevaluated today on 11/08/2017, patient is status post esophageal varices ligation, she received Sandostatin, no episodes of bleeding over the last 24 hours, he will global today's 8.3, potassium is a bit low being corrected, renal profile is normal. Ammonia level is 20 after few doses of lactulose given yesterday. Patient will likely be transferred out of the ICU today. Objective - Vital Signs Vital signs: Vital Signs Temp 97.9 F 11/08/17 08:00 Pulse 103 H 11/07/17 18:00 Resp 18 11/08/17 08:00 BP 97/50 11/08/17 08:00 Pulse Ox 100 11/08/17 08:00 Intake & Output 01/10/18 01/11/18 01/11/18 18:59 06:59 18:59 Intake Total 1622 1440 560 Balance 1622 1440 560 Weight 90.7 kg 90.7 kg Intake: IV 1320 1440 360 Sodium Chloride 0.9% 1, 1320 1440 360 000 ml @ 120 mls/hr IV . Q8H20M [facility] Rx#:[id number] Intake, IV Titration 302 200 Amount Levofloxacin 500Mg-D5w 100 100 Pmx 500 mg In Dextrose/ Water 1 100ml.bag @ 100 mls/hr IVPB Q24H [facility] Rx#: [id number] Magnesium Sulfate-D5w Pmx 100 1 gm In Dextrose/Water 1 100ml.bag @ 100 mls/hr IVPB Q1H [facility] Rx#: [id number] Octreotide 200 mcg In 202 Sodium Chloride 0.9% 100 ml @ 50 MCG/HR 25.25 mls/ hr IV .Q4H [facility] Rx#: [id number] Other: Voiding Method Toilet Toilet Toilet # Voids 1 1 1 # Bowel Movements 1 1 1 - Exam GENERAL EXAM: Alert, pleasant 62-year-old white female, comfortable in no apparent distress. HEAD: Normocephalic/atraumatic. EYES: Normal reaction of pupils, equal size. Conjunctiva pink, sclera white. NOSE: Clear with pink turbinates. THROAT: No erythema or exudates. NECK: No masses, no JVD, no thyroid enlargement, no adenopathy. CHEST: No chest wall deformity. Symmetrical expansion. LUNGS: Equal air entry with no crackles, wheeze, rhonchi or dullness. CVS: Regular rate and rhythm, normal S1 and S2, no gallops, no murmurs, no rubs ABDOMEN: Globular soft, consistent with ascites findings fluid wave shift noted. EXTREMITIES: No clubbing, no edema, no cyanosis, 2+ pulses and upper and lower extremities. MUSCULOSKELETAL: Muscle strength and tone normal. SPINE: No scoliosis or deformity SKIN: No rashes CENTRAL NERVOUS SYSTEM: Alert and oriented -3. No focal deficits, tone is normal in all 4 extremities. PSYCHIATRIC: Alert and oriented -3. Appropriate affect. Intact judgment and insight. - Labs CBC & Chem 7: 11/08/17 03:58 11/08/17 03:58 Labs: Abnormal Lab Results - Last 24 Hours (Table) 11/07/17 11/07/17 11/07/17 Range/Units 15:20 17:24 19:57 WBC (3.8-10.6) k/uL RBC (3.80-5.40) m/uL Hgb (11.4-16.0) gm/dL Hct (34.0-46.0) % MCV (80.0-100.0) fL RDW (11.5-15.5) % Plt Count (150-450) k/uL Lymphocytes # (1.0-4.8) k/uL Potassium (3.5-5.1) mmol/L Glucose (74-99) mg/dL POC Glucose (mg/dL) 182 H 132 H 145 H (75-99) mg/dL Calcium (8.4-10.2) mg/dL AST (14-36) U/L Total Protein (6.3-8.2) g/dL Albumin (3.5-5.0) g/dL 11/08/17 11/08/17 11/08/17 Range/Units 03:09 03:58 03:58 WBC 2.7 L (3.8-10.6) k/uL RBC 2.45 L (3.80-5.40) m/uL Hgb 8.3 L (11.4-16.0) gm/dL Hct 25.8 L (34.0-46.0) % MCV 105.6 H (80.0-100.0) fL RDW 16.8 H (11.5-15.5) % Plt Count 53 L (150-450) k/uL Lymphocytes # 0.6 L (1.0-4.8) k/uL Potassium 3.0 L* (3.5-5.1) mmol/L Glucose 106 H (74-99) mg/dL POC Glucose (mg/dL) 47 L (75-99) mg/dL Calcium 7.7 L (8.4-10.2) mg/dL AST 60 H (14-36) U/L Total Protein 5.2 L (6.3-8.2) g/dL Albumin 2.5 L (3.5-5.0) g/dL Assessment and Plan Assessment: #1. Acute upper GI hemorrhage, secondary to esophageal varices, status post esophageal varices ligation, off Sandostatin today #2. Acute blood loss anemia, secondary to the above, current hemoglobin is 8.7 , patient remains hemodynamically stable, has not required blood transfusions this admission so far. #3. Nonalcoholic cirrhosis of the liver, with ascites, patient has monthly paracentesis. Patient's awaiting evaluation for liver transplantation at [facility] #4. Previous history of upper GI hemorrhage room esophageal varices, with 2 previous esophageal varices banding #5. Thrombocytopenia #6. Coagulopathy, related to chronic liver disease #7. History of asthma, currently there are no signs of active exacerbation #8. History of diabetes on insulin pump #9. Fibromyalgia #10. Depression Recommendation: Continue present supportive care measures, transfer out of the ICU today, and possible discharge plans in a.m. Her ascites and abdominal girth could be addressed on an outpatient basis, patient usually gets monthly paracentesis procedures for her ascites. Time with Patient: Less than 30
--- NOTE | 2017-11-08 11:22 | P.PN ---
Subjective Principal diagnosis: Patient resting in bed without complaint no evidence of further bleeding. Patient will be transferred from the ICU Objective - Vital Signs Vital signs: Vital Signs Temp 97.7 F 11/08/17 11:05 Pulse 85 11/08/17 11:05 Resp 19 11/08/17 11:05 BP 105/48 11/08/17 11:05 Pulse Ox 98 11/08/17 11:05 Intake & Output 11/07/17 11/08/17 11/08/17 18:59 06:59 18:59 Intake Total 1622 1440 757 Balance 1622 1440 757 Weight 90.7 kg 90.7 kg Intake: IV 1320 1440 360 Sodium Chloride 0.9% 1, 1320 1440 360 000 ml @ 120 mls/hr IV . Q8H20M [facility] Rx#:[id number] Intake, IV Titration 302 200 Amount Levofloxacin 500Mg-D5w 100 100 Pmx 500 mg In Dextrose/ Water 1 100ml.bag @ 100 mls/hr IVPB Q24H [facility] Rx#: [id number] Magnesium Sulfate-D5w Pmx 100 1 gm In Dextrose/Water 1 100ml.bag @ 100 mls/hr IVPB Q1H [facility] Rx#: [id number] Octreotide 200 mcg In 202 Sodium Chloride 0.9% 100 ml @ 50 MCG/HR 25.25 mls/ hr IV .Q4H [facility] Rx#: [id number] Blood Product 197 Platelet Pheresis Acda2 197 Unit [id number] Other: Voiding Method Toilet Toilet Toilet # Voids 1 1 1 # Bowel Movements 1 1 1 - Constitutional General appearance: Present: obese - EENT Eyes: Present: PERRLA Ears: bilateral: normal - Neck Neck: Present: normal ROM - Respiratory Respiratory: bilateral: CTA - Cardiovascular Rhythm: regular - Gastrointestinal General gastrointestinal: Present: distended - Integumentary Integumentary: Present: normal - Neurologic Neurologic: Present: CNII-XII intact - Musculoskeletal Musculoskeletal: Present: generalized weakness - Psychiatric Psychiatric: Present: A&O x's 3, appropriate affect, intact judgment & insight - Labs CBC & Chem 7: 11/08/17 03:58 11/08/17 03:58 Labs: Abnormal Lab Results - Last 24 Hours (Table) 11/07/17 11/07/17 11/07/17 Range/Units 15:20 17:24 19:57 WBC (3.8-10.6) k/uL RBC (3.80-5.40) m/uL Hgb (11.4-16.0) gm/dL Hct (34.0-46.0) % MCV (80.0-100.0) fL RDW (11.5-15.5) % Plt Count (150-450) k/uL Lymphocytes # (1.0-4.8) k/uL Potassium (3.5-5.1) mmol/L Glucose (74-99) mg/dL POC Glucose (mg/dL) 182 H 132 H 145 H (75-99) mg/dL Calcium (8.4-10.2) mg/dL AST (14-36) U/L Total Protein (6.3-8.2) g/dL Albumin (3.5-5.0) g/dL 11/08/17 11/08/17 11/08/17 Range/Units 03:09 03:58 03:58 WBC 2.7 L (3.8-10.6) k/uL RBC 2.45 L (3.80-5.40) m/uL Hgb 8.3 L (11.4-16.0) gm/dL Hct 25.8 L (34.0-46.0) % MCV 105.6 H (80.0-100.0) fL RDW 16.8 H (11.5-15.5) % Plt Count 53 L (150-450) k/uL Lymphocytes # 0.6 L (1.0-4.8) k/uL Potassium 3.0 L* (3.5-5.1) mmol/L Glucose 106 H (74-99) mg/dL POC Glucose (mg/dL) 47 L (75-99) mg/dL Calcium 7.7 L (8.4-10.2) mg/dL AST 60 H (14-36) U/L Total Protein 5.2 L (6.3-8.2) g/dL Albumin 2.5 L (3.5-5.0) g/dL Assessment and Plan Plan: Assessment Upper GI bleed secondary to esophageal varices post EGD with ligation Sandostatin treatment Thrombocytopenia and coagulopathy secondary to chronic liver disease History of congestive heart failure Diabetes type 2 on insulin pump Fibromyalgia Non-alcoholic cirrhosis on transplant list Ascites Hypokalemia being corrected Plan Continue consultation with Dr. Orona Needs paracentesis for ascites
[2017-11-08 12:39] LABS: Glucose,Whole Blood 38 mg/dL (75-99)
[2017-11-08 12:39] LABS: Glucose,Whole Blood 36 mg/dL (75-99)
[2017-11-08 12:52] LABS: Glucose,Whole Blood 58 mg/dL (75-99)
--- NOTE | 2017-11-08 12:52 | US ---
Therapeutic paracentesis. DATE OF EXAM: 11/08/2017 CLINICAL HISTORY: Ascites The procedure was discussed with the patient. The risks, complications, benefits, and alternatives we re discussed and any questions were answered. Informed consent was obtained. The patient was placed s upine on the ultrasound table and prepped and draped in the usual sterile fashion. All elements of maximal barrier technique were utilized. Under ultrasound guidance, access into the left lower quadrant was obtained, via the paracentesis catheter system and direct ultrasound guidance . Approximately 5.2 liters of straw-colored fluid was removed. The patient was stable throughout the pr ocedure and remained stable upon discharge from Department of Radiology. IMPRESSION: Successful therapeutic paracentesis under ultrasound guidance.
[2017-11-08 13:15] LABS: Glucose,Whole Blood 154 mg/dL (75-99)
[2017-11-08 17:13] LABS: Glucose,Whole Blood 177 mg/dL (75-99)
[2017-11-08] MEDS: OCTREOTIDE 500 MCG in SODIUM CHLORIDE 0.9% 250 ML IV SCH (17:45)
[2017-11-08 20:11] LABS: Glucose,Whole Blood 122 mg/dL (75-99)
[2017-11-08 23:01] LABS: Glucose,Whole Blood 50 mg/dL (75-99)
[2017-11-08 23:16] LABS: Glucose,Whole Blood 52 mg/dL (75-99)
[2017-11-08 23:32] LABS: Glucose,Whole Blood 103 mg/dL (75-99)
[2017-11-09 01:58] LABS: Glucose,Whole Blood 119 mg/dL (75-99)
[2017-11-09 04:29] VITALS: BP 112/47; TEMP 98.4
[2017-11-09 04:32] LABS: Anisocytosis Slight; Basophils % (A) 0 %; Eosinophils # (A) 0.1 k/uL (0-0.7); Eosinophils % (A) 3 %; HCT 24.6 % (34.0-46.0); HGB 7.9 gm/dL (11.4-16.0); Lymphocytes # (A) 0.6 k/uL (1.0-4.8); Lymphocytes % (A) 29 %; MCH 33.3 pg (25.0-35.0); MCHC 32.1 g/dL (31.0-37.0); MCV 103.8 fL (80.0-100.0); Macrocytosis Moderate; Mean Platelet Volume 11.5; Monocytes # (A) 0.1 k/uL (0-1.0); Monocytes % (A) 5 %; Neutrophils # (A) 1.3 k/uL (1.3-7.7); Neutrophils % (A) 61 %; RBC 2.37 m/uL (3.80-5.40); RDW 17.6 % (11.5-15.5); WBC 2.2 k/uL (3.8-10.6)
[2017-11-09 04:46] LABS: ALT 45 U/L (9-52); AST 43 U/L (14-36); Albumin 2.4 g/dL (3.5-5.0); Alkaline Phosphatase 75 U/L (38-126); Anion Gap 4 mmol/L; Blood Urea Nitrogen 7 mg/dL (7-17); Calcium 7.7 mg/dL (8.4-10.2); Carbon Dioxide 28 mmol/L (22-30); Chloride 106 mmol/L (98-107); Glucose 65 mg/dL (74-99); Magnesium 1.8 mg/dL (1.6-2.3); Potassium 3.5 mmol/L (3.5-5.1); Sodium 138 mmol/L (137-145); Total Bilirubin 0.5 mg/dL (0.2-1.3); Total Protein 4.9 g/dL (6.3-8.2)
[2017-11-09 04:47] LABS: Platelet Count 51 k/uL (150-450)
[2017-11-09 05:15] LABS: Glucose,Whole Blood 46 mg/dL (75-99)
[2017-11-09] MEDS: INSULIN PUMP MEAL BOLUS 1 UNIT MISC MISCELLANE SCH (05:17)
[2017-11-09 05:32] LABS: Glucose,Whole Blood 63 mg/dL (75-99)
[2017-11-09 05:52] LABS: Glucose,Whole Blood 95 mg/dL (75-99)
[2017-11-09 07:11] LABS: Glucose,Whole Blood 165 mg/dL (75-99)
[2017-11-09] MEDS: POTASSIUM CHLORIDE ER 20 MEQ TAB.ER PO SCH ×2 (07:29→10:47)
[2017-11-09 07:33] VITALS: PULSE 91; RESP 16
[2017-11-09] MEDS ORDERED: LEVOFLOXACIN 500 MG TAB PO SCH (09:00)
[2017-11-09] MEDS: FUROSEMIDE 40 MG TAB PO SCH (10:45)
[2017-11-09] MEDS: PANTOPRAZOLE 40 MG/10 ML VIAL IV SCH (10:46)
[2017-11-09] MEDS: SPIRONOLACTONE 25 MG TAB PO SCH (10:47)
--- NOTE | 2017-11-09 11:04 | P.PN ---
Subjective Progress Note Date: 11/09/17 Principal diagnosis: Acute upper GI bleedingsecondary to esophageal varices Carol is a 62-year-old female patient of Dr. Dario Underwood, who presented to the emergency department on 11/05/2017 with complaints of upper GI hemorrhage, she had 3 episodes of hematemesis with bright red blood at home. 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 Patient follows with Dr. Esther Orona. Her admission hemoglobin was 11.9, which has been gradually trending downward during this admission and is currently at 8.7 on 11/06/2017 at 5:30 in the morning, despite no further episodes of hematemesis, the patient did have a couple episodes of dark tarry stools. Patient has remained hemodynamically stable, has not required any blood transfusions. She had EGD with variceal ligation on 11/05/[address] Orona, tolerated procedure well. She was started on clear liquid diet, and IV Sandostatin drip as well as prophylactic antibiotics. We are seeing her in consultation for critical care management. Reevaluated today on 11/07/2017, patient is doing well, her hemoglobin is stable , no evidence of active bleeding, however the patient remains on Sandostatin, and she will remain in the ICU for the next 24 hours. No hemodynamic issues overnight, and no active bleeding was reported overnight. Hemoglobin is 8.7 today, 8.9 yesterday, basic metabolic profile is normal renal profile is normal. INR is 1.4. Reevaluated today on 11/08/2017, patient is status post esophageal varices ligation, she received Sandostatin, no episodes of bleeding over the last 24 hours, he will global today's 8.3, potassium is a bit low being corrected, renal profile is normal. Ammonia level is 20 after few doses of lactulose given yesterday. Patient will likely be transferred out of the ICU today. Reevaluated today on 11/09/2017, patient is doing well, asymptomatic, considered for discharge today, hemoglobin is stable, no active bleeding, scheduled to follow-up at [facility] for evaluation for liver transplantation in the near future. Objective - Vital Signs Vital signs: Vital Signs Temp 98.4 F 11/09/17 04:00 Pulse 91 11/09/17 07:31 Resp 16 11/09/17 07:31 BP 112/47 11/09/17 04:00 Pulse Ox 97 11/09/17 04:00 Intake & Output 11/08/17 11/09/17 11/09/17 18:59 06:59 18:59 Intake Total 1497 500 150 Balance 1497 500 150 Weight 90.7 kg 85.4 kg Intake: IV 600 Sodium Chloride 0.9% 1, 600 000 ml @ 120 mls/hr IV . Q8H20M [facility] Rx#:[id number] Intake, IV Titration 200 Amount Levofloxacin 500Mg-D5w 100 Pmx 500 mg In Dextrose/ Water 1 100ml.bag @ 100 mls/hr IVPB Q24H [facility] Rx#: [id number] Magnesium Sulfate-D5w Pmx 100 1 gm In Dextrose/Water 1 100ml.bag @ 100 mls/hr IVPB Q1H [facility] Rx#: [id number] Oral 500 500 150 Blood Product 197 Platelet Pheresis Acda2 197 Unit [id number] Other: Voiding Method Toilet Toilet Bedside Commode # Voids 1 1 # Bowel Movements 2 - Exam GENERAL EXAM: Alert, pleasant 62-year-old white female, comfortable in no apparent distress. HEAD: Normocephalic/atraumatic. EYES: Normal reaction of pupils, equal size. Conjunctiva pink, sclera white. NOSE: Clear with pink turbinates. THROAT: No erythema or exudates. NECK: No masses, no JVD, no thyroid enlargement, no adenopathy. CHEST: No chest wall deformity. Symmetrical expansion. LUNGS: Equal air entry with no crackles, wheeze, rhonchi or dullness. CVS: Regular rate and rhythm, normal S1 and S2, no gallops, no murmurs, no rubs ABDOMEN: Globular soft, consistent with ascites findings fluid wave shift noted. EXTREMITIES: No clubbing, no edema, no cyanosis, 2+ pulses and upper and lower extremities. MUSCULOSKELETAL: Muscle strength and tone normal. SPINE: No scoliosis or deformity SKIN: No rashes CENTRAL NERVOUS SYSTEM: Alert and oriented -3. No focal deficits, tone is normal in all 4 extremities. PSYCHIATRIC: Alert and oriented -3. Appropriate affect. Intact judgment and insight. - Labs CBC & Chem 7: 11/09/17 04:00 11/09/17 04:00 Labs: Abnormal Lab Results - Last 24 Hours (Table) 11/08/17 11/08/17 11/08/17 Range/Units 12:35 12:36 12:51 WBC (3.8-10.6) k/uL RBC (3.80-5.40) m/uL Hgb (11.4-16.0) gm/dL Hct (34.0-46.0) % MCV (80.0-100.0) fL RDW (11.5-15.5) % Plt Count (150-450) k/uL Lymphocytes # (1.0-4.8) k/uL Glucose (74-99) mg/dL POC Glucose (mg/dL) 38 L 36 L 58 L (75-99) mg/dL Calcium (8.4-10.2) mg/dL AST (14-36) U/L Total Protein (6.3-8.2) g/dL Albumin (3.5-5.0) g/dL 11/08/17 11/08/17 11/08/17 Range/Units 13:13 17:10 20:09 WBC (3.8-10.6) k/uL RBC (3.80-5.40) m/uL Hgb (11.4-16.0) gm/dL Hct (34.0-46.0) % MCV (80.0-100.0) fL RDW (11.5-15.5) % Plt Count (150-450) k/uL Lymphocytes # (1.0-4.8) k/uL Glucose (74-99) mg/dL POC Glucose (mg/dL) 154 H 177 H 122 H (75-99) mg/dL Calcium (8.4-10.2) mg/dL AST (14-36) U/L Total Protein (6.3-8.2) g/dL Albumin (3.5-5.0) g/dL 11/08/17 11/08/17 11/08/17 Range/Units 23:00 23:15 23:29 WBC (3.8-10.6) k/uL RBC (3.80-5.40) m/uL Hgb (11.4-16.0) gm/dL Hct (34.0-46.0) % MCV (80.0-100.0) fL RDW (11.5-15.5) % Plt Count (150-450) k/uL Lymphocytes # (1.0-4.8) k/uL Glucose (74-99) mg/dL POC Glucose (mg/dL) 50 L 52 L 103 H (75-99) mg/dL Calcium (8.4-10.2) mg/dL AST (14-36) U/L Total Protein (6.3-8.2) g/dL Albumin (3.5-5.0) g/dL 11/09/17 11/09/17 11/09/17 Range/Units 01:57 04:00 04:00 WBC 2.2 L (3.8-10.6) k/uL RBC 2.37 L (3.80-5.40) m/uL Hgb 7.9 L (11.4-16.0) gm/dL Hct 24.6 L (34.0-46.0) % MCV 103.8 H (80.0-100.0) fL RDW 17.6 H (11.5-15.5) % Plt Count 51 L (150-450) k/uL Lymphocytes # 0.6 L (1.0-4.8) k/uL Glucose 65 L (74-99) mg/dL POC Glucose (mg/dL) 119 H (75-99) mg/dL Calcium 7.7 L (8.4-10.2) mg/dL AST 43 H (14-36) U/L Total Protein 4.9 L (6.3-8.2) g/dL Albumin 2.4 L (3.5-5.0) g/dL 11/09/17 11/09/17 11/09/17 Range/Units 05:13 05:30 07:02 WBC (3.8-10.6) k/uL RBC (3.80-5.40) m/uL Hgb (11.4-16.0) gm/dL Hct (34.0-46.0) % MCV (80.0-100.0) fL RDW (11.5-15.5) % Plt Count (150-450) k/uL Lymphocytes # (1.0-4.8) k/uL Glucose (74-99) mg/dL POC Glucose (mg/dL) 46 L 63 L 165 H (75-99) mg/dL Calcium (8.4-10.2) mg/dL AST (14-36) U/L Total Protein (6.3-8.2) g/dL Albumin (3.5-5.0) g/dL Assessment and Plan Assessment: #1. Acute upper GI hemorrhage, secondary to esophageal varices, status post esophageal varices ligation, off Sandostatin today #2. Acute blood loss anemia, secondary to the above, current hemoglobin is 8.7 , patient remains hemodynamically stable, has not required blood transfusions this admission so far. #3. Nonalcoholic cirrhosis of the liver, with ascites, patient has monthly paracentesis. Patient's awaiting evaluation for liver transplantation at [facility] #4. Previous history of upper GI hemorrhage room esophageal varices, with 2 previous esophageal varices banding #5. Thrombocytopenia #6. Coagulopathy, related to chronic liver disease #7. History of asthma, currently there are no signs of active exacerbation #8. History of diabetes on insulin pump #9. Fibromyalgia #10. Depression Recommendation: Continue present supportive care measures, agree with discharge planning, agree with follow-up at [facility] for possible liver transplantation in the future. Time with Patient: Less than 30
[2017-11-09 11:10] LABS: Glucose,Whole Blood 128 mg/dL (75-99)
[2017-11-09] MEDS ORDERED: Magnesium Replacement Protocol 1 EACH MISC MISCELLANE PRN (11:51)
[2017-11-09] MEDS ORDERED: Potassium Replacement Protocol 1 EACH MISC MISCELLANE PRN (11:51)
--- NOTE | 2017-11-09 11:54 | P.PN ---
Subjective Progress Note Date: 11/09/17 Principal diagnosis: GI bleed esophageal varices Admitted with acute hematemesis status post EGD findings of esophageal varices ligation performed. No episodes of GI bleeding. Afebrile. Status post paracentesis yesterday 5.2 L removal. Tolerating regular diet. Hemoglobin 7.9. Platelet 51,000. Potassium 3.5. Objective - Vital Signs Vital signs: Vital Signs Temp 98.4 F 11/09/17 04:00 Pulse 91 11/09/17 07:31 Resp 16 11/09/17 07:31 BP 112/47 11/09/17 04:00 Pulse Ox 97 11/09/17 04:00 Intake & Output 11/08/17 11/09/17 11/09/17 18:59 06:59 18:59 Intake Total 1497 500 150 Balance 1497 500 150 Weight 90.7 kg 85.4 kg Intake: IV 600 Sodium Chloride 0.9% 1, 600 000 ml @ 120 mls/hr IV . Q8H20M [facility] Rx#:[id number] Intake, IV Titration 200 Amount Levofloxacin 500Mg-D5w 100 Pmx 500 mg In Dextrose/ Water 1 100ml.bag @ 100 mls/hr IVPB Q24H [facility] Rx#: [id number] Magnesium Sulfate-D5w Pmx 100 1 gm In Dextrose/Water 1 100ml.bag @ 100 mls/hr IVPB Q1H [facility] Rx#: [id number] Oral 500 500 150 Blood Product 197 Platelet Pheresis Acda2 197 Unit [id number] Other: Voiding Method Toilet Toilet Bedside Commode # Voids 1 1 # Bowel Movements 2 - Exam General appearance: The patient is alert, oriented, in no acute distress. HET: Head is normocephalic and atraumatic. Pupils are equal and reactive. Oropharynx is clear without lesions. Neck: Supple without lymphadenopathy. Trachea midline. Heart: S1 S2. Regular rate and rhythm. Lungs: No crackles or wheezes are heard. Abdomen: Soft, mildly bloated with mild ascites nontender with bowel sounds. No peritoneal signs. No palpable organomegaly or masses. Extremities: Normal skin color and turgor. No cyanosis, rash, ulceration, clubbing, or edema. Radial and pedal pulses are 2/4 bilaterally. Neurological: No focal deficits. Strength and sensation are grossly intact. - Labs CBC & Chem 7: 11/09/17 04:00 11/09/17 04:00 Labs: Abnormal Lab Results - Last 24 Hours (Table) 11/08/17 11/08/17 11/08/17 Range/Units 12:35 12:36 12:51 WBC (3.8-10.6) k/uL RBC (3.80-5.40) m/uL Hgb (11.4-16.0) gm/dL Hct (34.0-46.0) % MCV (80.0-100.0) fL RDW (11.5-15.5) % Plt Count (150-450) k/uL Lymphocytes # (1.0-4.8) k/uL Glucose (74-99) mg/dL POC Glucose (mg/dL) 38 L 36 L 58 L (75-99) mg/dL Calcium (8.4-10.2) mg/dL AST (14-36) U/L Total Protein (6.3-8.2) g/dL Albumin (3.5-5.0) g/dL 11/08/17 11/08/17 11/08/17 Range/Units 13:13 17:10 20:09 WBC (3.8-10.6) k/uL RBC (3.80-5.40) m/uL Hgb (11.4-16.0) gm/dL Hct (34.0-46.0) % MCV (80.0-100.0) fL RDW (11.5-15.5) % Plt Count (150-450) k/uL Lymphocytes # (1.0-4.8) k/uL Glucose (74-99) mg/dL POC Glucose (mg/dL) 154 H 177 H 122 H (75-99) mg/dL Calcium (8.4-10.2) mg/dL AST (14-36) U/L Total Protein (6.3-8.2) g/dL Albumin (3.5-5.0) g/dL 11/08/17 11/08/17 11/08/17 Range/Units 23:00 23:15 23:29 WBC (3.8-10.6) k/uL RBC (3.80-5.40) m/uL Hgb (11.4-16.0) gm/dL Hct (34.0-46.0) % MCV (80.0-100.0) fL RDW (11.5-15.5) % Plt Count (150-450) k/uL Lymphocytes # (1.0-4.8) k/uL Glucose (74-99) mg/dL POC Glucose (mg/dL) 50 L 52 L 103 H (75-99) mg/dL Calcium (8.4-10.2) mg/dL AST (14-36) U/L Total Protein (6.3-8.2) g/dL Albumin (3.5-5.0) g/dL 11/09/17 11/09/17 11/09/17 Range/Units 01:57 04:00 04:00 WBC 2.2 L (3.8-10.6) k/uL RBC 2.37 L (3.80-5.40) m/uL Hgb 7.9 L (11.4-16.0) gm/dL Hct 24.6 L (34.0-46.0) % MCV 103.8 H (80.0-100.0) fL RDW 17.6 H (11.5-15.5) % Plt Count 51 L (150-450) k/uL Lymphocytes # 0.6 L (1.0-4.8) k/uL Glucose 65 L (74-99) mg/dL POC Glucose (mg/dL) 119 H (75-99) mg/dL Calcium 7.7 L (8.4-10.2) mg/dL AST 43 H (14-36) U/L Total Protein 4.9 L (6.3-8.2) g/dL Albumin 2.4 L (3.5-5.0) g/dL 11/09/17 11/09/17 11/09/17 Range/Units 05:13 05:30 07:02 WBC (3.8-10.6) k/uL RBC (3.80-5.40) m/uL Hgb (11.4-16.0) gm/dL Hct (34.0-46.0) % MCV (80.0-100.0) fL RDW (11.5-15.5) % Plt Count (150-450) k/uL Lymphocytes # (1.0-4.8) k/uL Glucose (74-99) mg/dL POC Glucose (mg/dL) 46 L 63 L 165 H (75-99) mg/dL Calcium (8.4-10.2) mg/dL AST (14-36) U/L Total Protein (6.3-8.2) g/dL Albumin (3.5-5.0) g/dL 11/09/17 Range/Units 11:04 WBC (3.8-10.6) k/uL RBC (3.80-5.40) m/uL Hgb (11.4-16.0) gm/dL Hct (34.0-46.0) % MCV (80.0-100.0) fL RDW (11.5-15.5) % Plt Count (150-450) k/uL Lymphocytes # (1.0-4.8) k/uL Glucose (74-99) mg/dL POC Glucose (mg/dL) 128 H (75-99) mg/dL Calcium (8.4-10.2) mg/dL AST (14-36) U/L Total Protein (6.3-8.2) g/dL Albumin (3.5-5.0) g/dL Assessment and Plan (1) Upper GI bleed Narrative/Plan: Secondary to portal gastropathy. Nonbleeding esophageal varices status post ligation. Current Visit: No Status: Acute Priority: High Code(s): K92.2 - GASTROINTESTINAL HEMORRHAGE, UNSPECIFIED SNOMED Code(s): 70695635 (2) Esophageal varices in cirrhosis Current Visit: No Status: Chronic Code(s): K74.60 - UNSPECIFIED CIRRHOSIS OF LIVER; I85.10 - SECONDARY ESOPHAGEAL VARICES WITHOUT BLEEDING SNOMED Code(s ): 270725554 (3) Portal hypertension Current Visit: Yes Status: Acute Code(s): K76.6 - PORTAL HYPERTENSION SNOMED Code(s): 55719495 (4) Hematemesis Current Visit: Yes Status: Acute Code(s): K92.0 - HEMATEMESIS SNOMED Code( s): 0425293 (5) Ascites Narrative/Plan: Status post paracentesis 5.2 L removal Current Visit: No Status: Chronic Code(s): R18.8 - OTHER ASCITES SNOMED Code(s): 440719521 (6) Liver cirrhosis secondary to nonalcoholic steatohepatitis (YEUNG) Current Visit: No Status: Chronic Code(s): K75.81 - NONALCOHOLIC STEATOHEPATITIS (YEUNG); K74.60 - UNSPECIFIED CIRRHOSIS OF LIVER SNOMED Code(s) : 16546652 (7) Acute blood loss anemia Current Visit: Yes Status: Acute Code(s): D62 - ACUTE POSTHEMORRHAGIC ANEMIA SNOMED Code(s): 827268961 (8) Coagulopathy Current Visit: Yes Status: Chronic Code(s): D68.9 - COAGULATION DEFECT, UNSPECIFIED SNOMED Code(s): 67864875 (9) Thrombocytopenia Current Visit: Yes Status: Chronic Code(s): D69.6 - THROMBOCYTOPENIA, UNSPECIFIED SNOMED Code(s): 218805332 (10) Hypokalemia Narrative/Plan: Resolved Current Visit: Yes Status: Acute Code(s): E87.6 - HYPOKALEMIA SNOMED Code( s): 70702744 Plan: 1. Agreeable for discharge. 2. Continue with Aldactone 100 mg daily. Lasix 40 mg twice daily. Protonix 40 mg twice daily. Will increase Inderal 10 mg 3 times a day for esophageal variceal management. 3. Return to office in 2-[address] Berg for reevaluation. Low-salt diet. Outpatient paracentesis scheduled 11/23/2017. Assessment and plan a care discussed with Dr. Orona
--- NOTE | 2017-11-09 18:28 | P.DS ---
Providers Date of admission: 11/05/17 10:28 Expected date of discharge: 11/09/17 Attending physician: Dario Jc Consults: 11/06/17 14:06 Consult Physician Routine Consulting Provider: Jairo Powell Consult Reason/Comments: ICU management Do you want consulting provider notified?: Yes, Notify in am GI, Dr. Susan Orona Primary care physician: Dario Underwood [facility] Course: Final Diagnoses: #1. Acute upper GI hemorrhage, secondary to esophageal varices, status post Sandostatin drip, status post esophageal varices ligation, off Sandostatin today #2. Acute blood loss anemia, secondary to the above #3. Nonalcoholic cirrhosis of the liver, with ascites, patient has monthly paracentesis. Status post paracentesis with 5.2 L drained. Patient's awaiting evaluation for liver transplantation at [facility] #4. Previous history of upper GI hemorrhage room esophageal varices, with 2 previous esophageal varices banding #5. Thrombocytopenia #6. Coagulopathy, related to chronic liver disease #7. History of asthma, currently there are no signs of active exacerbation #8. History of diabetes on insulin pump #9. Fibromyalgia #10. Depression Hospital course: This a 62-year-old female admitted with acute upper GI bleed secondary to esophageal varices and multiple other medical issues. Yesterday he required ICU ,Sandostatin drip . Evaluated by GI, alley worker/pulmonary. Underwent EGD with esophageal varices ligation performed. Status post paracentesis with 5.2 L drained. No active bleeding, ammonia level 20, hemoglobin currently 7.9. Scheduled to follow [facility] for evaluation of liver transplant. Patient has been cleared by all consults for discharge. Patient has been discharged home in a stable condition with guarded prognosis. Physical exam:VSS, cardiovascular regular S1 and S2, no edema. Pulmonary lungs diminished, no crackles, no wheezes. Abdomen soft with ascites, nontender, positive bowel sounds, no peritoneal signs, guarding, no rigidity. Psychiatric alert and oriented 3 - normal, no focal deficits. The impression and plan of care has been dictated as directed. : I performed a history and examination of this patient, discussed the same with the dictator. I agree with the dictator's note ,documented as a scribe. Any additional findings or plans will be noted. Patient Condition at Discharge: Stable Plan - Discharge Summary Discharge Rx Participant: Yes New Discharge Prescriptions: New Levofloxacin [Levaquin] 500 mg PO DAILY #5 tab Pantoprazole Sodium [Protonix] 40 mg PO BID #60 tablet.dr Curtis Montelukast [Singulair] 10 mg PO DAILY INSULIN LISPRO (For Pump) [humaLOG (For Pump)] 0.01 units SQ-PUMP CONTINUOUS Ezetimibe [Zetia] 10 mg PO DAILY Spironolactone [Aldactone] 100 mg PO DAILY Sertraline [Zoloft] 25 mg PO DAILY Acetaminophen [Tylenol] 325 mg PO Q4H PRN PRN Reason: Pain Vitamin D 625mg 625 mg PO BID Potassium Chloride ER [K-Dur 20] 20 meq PO DAILY #30 tab Furosemide [Lasix] 40 mg PO BID #0 Changed Propranolol [Inderal] 10 mg PO TID #0 Discharge Medication List Montelukast [Singulair] 10 mg PO DAILY 07/10/14 [History] Ezetimibe [Zetia] 10 mg PO DAILY 09/04/16 [History] INSULIN LISPRO (For Pump) [humaLOG (For Pump)] 0.01 units SQ-PUMP CONTINUOUS 05/13 [History] Spironolactone [Aldactone] 100 mg PO DAILY 10/05/16 [History] Sertraline [Zoloft] 25 mg PO DAILY 01/12/17 [History] Acetaminophen [Tylenol] 325 mg PO Q4H PRN 09/15/17 [History] Vitamin D 625mg 625 mg PO BID 09/15/17 [History] Furosemide [Lasix] 40 mg PO BID #0 09/17/17 [Rx] Potassium Chloride ER [K-Dur 20] 20 meq PO DAILY #30 tab 09/17/17 [Rx] Levofloxacin [Levaquin] 500 mg PO DAILY #5 tab 11/09/17 [Rx] Pantoprazole Sodium [Protonix] 40 mg PO BID #60 tablet. 11/09/17 [Rx] Propranolol [Inderal] 10 mg PO TID #0 11/09/17 [Rx] Follow up Appointment(s)/Referral(s): Liver transplant Clinic, Dr. MADDY Starks [Other] - 1 Week Dario Underwood MD [Primary Care Provider] - 3 Days (Please call Sunday to set up a follow up appointment, office is closed today for secretary bookkeeper to set up) Joel Berg MD [STAFF PHYSICIAN] - 11/15/17 2:00 pm Ambulatory/Diagnostic Orders: Complete Blood Count w/diff [LAB.AMB] Time Frame: 3 Days, Location: Determined By Patient Activity/Diet/Wound Care/Special Instructions: DIet: LOw SOdium 2000mg daily, consist. carb, ins pump as prev. ordered Activity: Limited TIll F/U Discharge Disposition: HOME SELF-CARE
== END 2017-11-09 13:25 | disposition home or self-care (01) | DRG 369 ==
LOC: EC 08:23 → 6SEL 10:28 → 6ICU 11-06 12:06 → 3SUR 11-09 06:12
PROVIDERS: ADMIT Family Medicine; ATTEND Family Medicine
PROC: 06L38CZ Occlusion of Esophageal Vein with Extraluminal Device, Via Natural or Artificial Opening Endoscopic (ICD-10-PCS; principal; 2017-11-06 07:30)
PROC: 0W9G3ZZ Drainage of Peritoneal Cavity, Percutaneous Approach (ICD-10-PCS; 2017-11-08)
PROC: 30233R1 Transfusion of Nonautologous Platelets into Peripheral Vein, Percutaneous Approach (ICD-10-PCS; 2017-11-08)
DX: I85.11 Secondary esophageal varices with bleeding (principal); D62 Acute posthemorrhagic anemia; Z76.82 Awaiting organ transplant status; D68.4 Acquired coagulation factor deficiency; K76.6 Portal hypertension; D69.6 Thrombocytopenia, unspecified; R18.8 Other ascites; I11.0 Hypertensive heart disease with heart failure; I50.9 Heart failure, unspecified; E78.5 Hyperlipidemia, unspecified; E87.6 Hypokalemia; F32.9 Major depressive disorder, single episode, unspecified; E11.9 Type 2 diabetes mellitus without complications; J45.909 Unspecified asthma, uncomplicated; K21.9 Gastro-esophageal reflux disease without esophagitis; K31.89 Other diseases of stomach and duodenum; K75.81 Nonalcoholic steatohepatitis (NASH); M79.7 Fibromyalgia; F41.9 Anxiety disorder, unspecified; L40.9 Psoriasis, unspecified; M19.90 Unspecified osteoarthritis, unspecified site; K74.69 Other cirrhosis of liver; R19.7 Diarrhea, unspecified; E66.9 Obesity, unspecified; Z68.31 Body mass index [BMI] 31.0-31.9, adult; Z79.899 Other long term (current) drug therapy; Z79.4 Long term (current) use of insulin; Z96.41 Presence of insulin pump (external) (internal); Z90.710 Acquired absence of both cervix and uterus; Z90.49 Acquired absence of other specified parts of digestive tract; Z87.891 Personal history of nicotine dependence; Z85.41 Personal history of malignant neoplasm of cervix uteri; Z88.2 Allergy status to sulfonamides; Z88.1 Allergy status to other antibiotic agents; Z91.030 Bee allergy status; Z91.041 Radiographic dye allergy status; Z88.0 Allergy status to penicillin; Z91.013 Allergy to seafood; Z82.49 Family history of ischemic heart disease and other diseases of the circulatory system
CPT/HCPCS: 36415; 43244; 49083; 71045; 80053; 82140; 82150; 82550; 82553; 83036; 83690; 83735; 84132; 84484; 85025; 85610; 85730; 86850; 86900; 86901; 96374; 99285

== ENCOUNTER → 2017-11-12 | Outpatient (CLI) | payer MEDICARE, BC ==
[2017-11-12 14:07] LABS: Anisocytosis Slight; Basophils % (A) 1 %; Eosinophils # (A) 0.1 k/uL (0-0.7); Eosinophils % (A) 2 %; HCT 28.7 % (34.0-46.0); HGB 9.2 gm/dL (11.4-16.0); Hypochromasia Slight; Lymphocytes # (A) 0.6 k/uL (1.0-4.8); Lymphocytes % (A) 19 %; MCH 33.2 pg (25.0-35.0); MCV 103.6 fL (80.0-100.0); Macrocytosis Moderate; Mean Platelet Volume 11.1; Monocytes # (A) 0.2 k/uL (0-1.0); Monocytes % (A) 6 %; Neutrophils # (A) 2.3 k/uL (1.3-7.7); Neutrophils % (A) 70 %; RBC 2.77 m/uL (3.80-5.40); WBC 3.3 k/uL (3.8-10.6)
[2017-11-12 14:08] LABS: Platelet Count 51 k/uL (150-450)
[2017-11-12 14:21] LABS: Albumin 2.9 g/dL (3.5-5.0); Calcium 8.3 mg/dL (8.4-10.2); Potassium 3.8 mmol/L (3.5-5.1); Total Bilirubin 0.9 mg/dL (0.2-1.3); Total Protein 5.7 g/dL (6.3-8.2)
== END | disposition home or self-care (01) ==
LOC: LABWHC1 13:29
PROVIDERS: ATTEND Nurse Practitioner
DX: K92.2 Gastrointestinal hemorrhage, unspecified (principal); I85.00 Esophageal varices without bleeding; K74.60 Unspecified cirrhosis of liver
CPT/HCPCS: 36415; 80053; 85025

== ENCOUNTER 2017-11-23 08:24 | Day surgery (SDC) | payer MEDICARE, BC ==
[2017-11-23 09:17] LABS: Mean Platelet Volume 10.2
[2017-11-23 09:21] LABS: Platelet Count 66 k/uL (150-450)
[2017-11-23 09:22] LABS: INR 1.3 (<1.2); Prothrombin Time 11.9 sec (9.0-12.0)
[2017-11-23] MEDS ORDERED: ALBUMIN HUMAN 25% 50 ML in EMPTY BAG 1 BAG IVPB SCH (09:45)
[2017-11-23 10:21] VITALS: TEMP 98.3
[2017-11-23 11:55] VITALS: BP 102/50; PULSE 64; RESP 16
--- NOTE | 2017-11-23 16:00 | US ---
EXAMINATION TYPE: US paracentesis abd w/image DATE OF EXAM: 11/23/2017 COMPARISON: NONE HISTORY: Ascites. PROCEDURE: Maximal barrier technique was utilized. The skin overlying a suitable pocket of fluid was localized with ultrasound and the overlying skin was prepped and draped. Ultrasound was utilized with sterile technique. Lidocaine was used for local anesthesia and a skin jose made with a scalpel. Catheter was advanced under direct ultrasound guidance into a suitable pocket of fluid and approximately 2.2 liter s of serous fluid were removed. Catheter was withdrawn and hemostasis achieved. There is no immedia te complication; the patient is discharged in stable condition. IMPRESSION: STATUS POST ULTRASOUND GUIDED PARACENTESIS FOR PALLIATION OF ASCITES. THIS PROCEDURE WA S PERFORMED BY THE UNDERSIGNED.
== END 2017-11-23 11:15 | disposition home or self-care (01) ==
LOC: RADPROMAIN 08:24
DX: R18.8 Other ascites (principal)
CPT/HCPCS: 36415; 49083; 82565; 85049; 85610

== ENCOUNTER 2017-12-21 08:21 | Day surgery (SDC) | payer MEDICARE, BC ==
[2017-12-21 09:19] LABS: Mean Platelet Volume 10.5
[2017-12-21 09:21] LABS: INR 1.3 (<1.2); Prothrombin Time 12.5 sec (9.0-12.0)
[2017-12-21 09:28] LABS: Platelet Count 53 k/uL (150-450)
[2017-12-21 09:39] VITALS: TEMP 97.9
[2017-12-21 11:09] VITALS: RESP 16
[2017-12-21 11:12] VITALS: BP 119/63; PULSE 80
--- NOTE | 2017-12-21 11:22 | US ---
Therapeutic paracentesis. DATE OF EXAM: 12/21/2017 CLINICAL HISTORY: Ascites The procedure was discussed with the patient. The risks, complications, benefits, and alternatives we re discussed and any questions were answered. Informed consent was obtained. The patient was placed s upine on the ultrasound table and prepped and draped in the usual sterile fashion. All elements of maximal barrier technique were utilized. Under ultrasound guidance, access into the left lower quadrant was obtained, via the paracentesis catheter system and direct ultrasound guidance . Approximately 2.5 liters of straw-colored fluid was removed. The patient was stable throughout the pr ocedure and remained stable upon discharge from Department of Radiology. IMPRESSION: Successful therapeutic paracentesis under ultrasound guidance.
[2017-12-21 12:48] LABS: Glucose 121 mg/dL (74-99)
== END 2017-12-21 11:05 | disposition home or self-care (01) ==
LOC: RADPROMAIN 08:21
DX: R18.8 Other ascites (principal)
CPT/HCPCS: 36415; 49083; 82565; 82947; 85049; 85610

== ENCOUNTER 2018-01-18 12:30 | Day surgery (SDC) | payer MEDICARE, BC ==
[2018-01-18 14:07] VITALS: BP 115/63; PULSE 80; RESP 18; TEMP 98
--- NOTE | 2018-01-18 14:12 | US ---
Therapeutic paracentesis. DATE OF EXAM: 01/18/2018 CLINICAL HISTORY: Ascites Preliminary imaging demonstrates no evidence of sizable fluid. Procedure was therefore discontinued. IMPRESSION: 1. Discontinued paracentesis due to lack of peritoneal fluid.
== END 2018-01-18 13:15 | disposition home or self-care (01) ==
LOC: RADPROMAIN 12:30
DX: R18.8 Other ascites (principal); Z53.8 Procedure and treatment not carried out for other reasons
CPT/HCPCS: 76705

== ENCOUNTER → 2018-02-12 | Outpatient (CLI) | payer MEDICARE, BC ==
--- NOTE | 2018-02-12 09:31 | MM ---
Reason for exam: additional evaluation requested from prior study. Last mammogram was performed 8 months ago. History: Patient is postmenopausal and has history of endometrial cancer at age 25. Family history of breast cancer in paternal aunt at age 50, breast cancer in maternal aunt at age 50, premenopausal breast cancer in sister at age 41, and breast cancer in paternal aunt. Benign MG stereo VAD BX LT of the left breast, June 25, 2017. Core biopsy of the left breast. Excisional biopsy of the right breast. Physical Findings: Nurse did not find any significant physical abnormalities on exam. MG 3D Diag Mammo W/Cad RHINA Bilateral CC and MLO view(s) were taken. Prior study comparison: June 19, 2017, left breast MG 3d work up w/cad LT. June 14, 2017, bilateral MG 3d screening mammo w/cad. The breast tissue is heterogeneously dense. This may lower the sensitivity of mammography. Finding #1: Architectural distortion in the upper quadrant, middle position of the left breast consistent with known excisional biopsy. There is stable dystrophic calcifications. Finding #2: There are typically benign regional and diffuse calcifications. Previous mammotome biopsy in the left breast. There is a chronic nodularity bilaterally. There is no discrete abnormality. These results were verbally communicated with the patient and result sheet given to the patient on 02/12/18. ASSESSMENT: Benign, BI-RAD 2 RECOMMENDATION: Routine screening mammogram of the right breast in 1 year.
== END | disposition home or self-care (01) ==
LOC: RADMAMWWP 08:30
PROVIDERS: ATTEND Family Medicine
DX: R92.8 Other abnormal and inconclusive findings on diagnostic imaging of breast (principal)
CPT/HCPCS: 77066; G0279

== ENCOUNTER → 2018-02-15 | Day surgery (SDC) | payer MEDICARE, BC ==
--- NOTE | 2018-02-15 13:05 | US ---
Discontinued paracentesis HISTORY: Ascites Limited scanning performed in the abdomen. No sizable fluid collection. IMPRESSION: Discontinued paracentesis
== END ==
LOC: RADPROMAIN 11:25
DX: R18.8 Other ascites (principal); Z53.8 Procedure and treatment not carried out for other reasons
CPT/HCPCS: 76705

== ENCOUNTER 2018-02-18 21:50 | Emergency (ER) | payer MEDICARE, BC ==
[2018-02-18 21:58] VITALS: PULSE 84
[2018-02-18] MEDS ORDERED: SODIUM CHLORIDE 0.9% 500 ML IV ONE ×2 (22:09→23:10)
--- NOTE | 2018-02-18 22:13 | ED ---
General Adult HPI - General Chief complaint: Recheck/Abnormal Lab/Rx Stated complaint: Elevated BS Time Seen by Provider: 02/18/18 22:00 Source: patient, RN notes reviewed, old records reviewed Mode of arrival: ambulatory Limitations: no limitations - History of Present Illness Initial comments: 62-year-old female history type 2 diabetes presenting with elevated blood sugar at home. Patient's glucometer read HIGH. Her sugars have been trending up over the past several weeks. She has been adjustments to her insulin pump. She has been evaluated by her senior product development scientist. Patient has history of HHS and DKA. According to the patient she is a very brittle diabetic. Denies any significant change in her diet. Patient takes no oral hypoglycemic medication. No long-acting insulin. Patient has no complaints. No significant polyuria or polydipsia. No chest pain shortness of breath, nausea vomiting or diarrhea. - Related Data Home Medications Medication Instructions Recorded Confirmed Montelukast [Singulair] 10 mg PO DAILY 07/10/14 01/18/18 Ezetimibe [Zetia] 10 mg PO DAILY 09/04/16 01/18/18 INSULIN LISPRO (For Pump) [humaLOG 0.01 units SQ-PUMP CONTINUOUS 09/04/16 (For Pump)] Spironolactone [Aldactone] 100 mg PO DAILY 10/05/16 01/18/18 Sertraline [Zoloft] 25 mg PO DAILY 01/12/17 01/18/18 Acetaminophen [Tylenol] 325 mg PO Q4H PRN 09/15/17 01/18/18 Vitamin D 625mg 625 mg PO BID 09/15/17 01/18/18 EPINEPHrine [Epipen 2-Sanchez] 0.3 mg IM ONCE PRN 11/23/17 01/18/18 Previous Rx's Medication Instructions Recorded Furosemide [Lasix] 40 mg PO BID #0 09/17/17 Potassium Chloride ER [K-Dur 20] 20 meq PO DAILY #30 tab 09/17/17 Pantoprazole Sodium [Protonix] 40 mg PO BID #60 tablet. 11/09/17 Propranolol [Inderal] 10 mg PO TID #0 11/09/17 Allergies Allergy/AdvReac Type Severity Reaction Status Date / Time doxycycline Allergy Rash/Hives Verified 02/18/18 21:58 iodine Allergy Rash/Hives Verified 02/18/18 21:58 Penicillins Allergy Rash/Hives Verified 02/18/18 21:58 shellfish derived Allergy Rash/Hives Verified 02/18/18 21:58 Sulfa (Sulfonamide Allergy Rash/Hives Verified 02/18/18 21:58 Antibiotics) venom-honey bee Allergy Anaphylaxis Verified 02/18/18 21:58 [bee venom (honey bee)] Review of Systems ROS Statement: Those systems with pertinent positive or pertinent negative responses have been documented in the HPI. ROS Other: All systems not noted in ROS Statement are negative. Past Medical History Past Medical History: Asthma, Cancer, Heart Failure, Diabetes Mellitus, Fibromyalgia, Liver Disease, Skin Disorder Additional Past Medical History / Comment(s): Non-ETOH cirrhosis, ascities, esohpogeal varicies, pancytopenia, thrombycytopenia, anemia, IDDM with insulin pump, stable 5 mm nodule L lung being monitored, urinary leakage at times and pt states she has diarrhea much of the time, psoriasis, cervical cancer with hysterectomy. History of Any Multi-Drug Resistant Organisms: None Reported Past Surgical History: Back Surgery, Cholecystectomy, Hysterectomy, Orthopedic Surgery, Tonsillectomy, Tubal Ligation Additional Past Surgical History / Comment(s): Paracentesis's x 3, EGD with banded esophageal varices, colonoscopies, bilateral rotator cuff repairs, bilateral breast bx-benign, back surgery in 2015. Past Anesthesia/Blood Transfusion Reactions: Previous Problems w/ Anesthesia Additional Past Anesthesia/Blood Transfusion Reaction / Comment(s): difficulty breathing when coming out of anesthesia; difficulty waking up. Hypotension with general anesthesia. blood transfusions without reaction. Past Psychological History: Depression Smoking Status: Former smoker Past Alcohol Use History: None Reported Past Drug Use History: None Reported - Past Family History Mother Family Medical History: Cancer, Dementia, Osteoarthritis (OA) Additional Family Medical History / Comment(s): skin cancer. Father Family Medical History: Coronary Artery Disease (CAD) Additional Family Medical History / Comment(s): cabg/pacemaker Brother(s) Family Medical History: Cancer Sister(s) Family Medical History: Cancer Additional Family Medical History / Comment(s): Breast CA. General Exam Limitations: no limitations General appearance: alert, in no apparent distress Head exam: Present: atraumatic, normocephalic Eye exam: Present: normal appearance, PERRL, EOMI ENT exam: Present: normal exam Neck exam: Present: normal inspection. Absent: tenderness, meningismus Respiratory exam: Present: normal lung sounds bilaterally. Absent: respiratory distress, wheezes Cardiovascular Exam: Present: regular rate, normal rhythm GI/Abdominal exam: Present: soft. Absent: distended, tenderness, guarding Extremities exam: Present: normal inspection, full ROM, normal capillary refill. Absent: pedal edema Neurological exam: Present: alert, oriented X3, CN II-XII intact. Absent: motor sensory deficit Psychiatric exam: Present: normal affect, normal mood Skin exam: Present: warm, dry, intact. Absent: cyanosis, diaphoretic Course Vital Signs 02/18/18 21:55 Temperature 98.2 F Pulse Rate 84 Respiratory 18 Rate Blood Pressure 103/48 O2 Sat by Pulse 96 Oximetry Medical Decision Making - Medical Decision Making 62-year-old female presenting with asymptomatic hyperglycemia. Blood sugar is checked, it is 496. Laboratory studies reveal normal white blood cell count, stable hemoglobin, sodium of 1:30 which is secondary to pseudohyponatremia from hyperglycemia. Creatinine 1.6 which is baseline for this patient. Urinalysis does show 4+ glucose, no ketones. Acetone is negative. Patient receives a total of 1 L normal saline and 7 units of IV insulin. Blood sugar is significantly down trending. She is comfortable with outpatient follow-up. She will follow-up with her senior product development scientist in the next 1-2 days. - Lab Data Result diagrams: 02/18/18 22:28 02/18/18 22:28 Lab Results 02/18/18 02/18/18 02/18/18 Range/Units 22:07 22:28 22:28 WBC 4.9 (3.8-10.6) k/uL RBC 3.59 L (3.80-5.40) m/uL Hgb 11.1 L (11.4-16.0) gm/dL Hct 33.3 L (34.0-46.0) % MCV 92.9 (80.0-100.0) fL MCH 31.1 (25.0-35.0) pg MCHC 33.4 (31.0-37.0) g/dL RDW 15.5 (11.5-15.5) % Plt Count 51 L (150-450) k/uL Neutrophils % 68 % Lymphocytes % 19 % Monocytes % 8 % Eosinophils % 2 % Basophils % 1 % Neutrophils # 3.3 (1.3-7.7) k/uL Lymphocytes # 0.9 L (1.0-4.8) k/uL Monocytes # 0.4 (0-1.0) k/uL Eosinophils # 0.1 (0-0.7) k/uL Basophils # 0.0 (0-0.2) k/uL Manual Slide Review Performed PT (9.0-12.0) sec INR (<1.2) APTT (22.0-30.0) sec Sodium 130 L (137-145) mmol/L Potassium 4.4 (3.5-5.1) mmol/L Chloride 93 L (98-107) mmol/L Carbon Dioxide 26 (22-30) mmol/L Anion Gap 11 mmol/L BUN 25 H (7-17) mg/dL Creatinine 1.16 H (0.52-1.04) mg/dL Est GFR (CKD-EPI)AfAm 58 (>60 ml/min/1.73 sqM) Est GFR (CKD-EPI)NonAf 50 (>60 ml/min/1.73 sqM) Glucose 449 H (74-99) mg/dL POC Glucose (mg/dL) 496 H (75-99) mg/dL POC Glu Delivery Driver ID Heavenly Prakash Calcium 9.2 (8.4-10.2) mg/dL Total Bilirubin 1.2 (0.2-1.3) mg/dL AST 35 (14-36) U/L ALT 46 (9-52) U/L Alkaline Phosphatase 116 (38-126) U/L Total Protein 6.5 (6.3-8.2) g/dL Albumin 3.7 (3.5-5.0) g/dL Urine Color Urine Appearance (Clear) Urine pH (5.0-8.0) Ur Specific [place] (1.001-1.035) Urine Protein (Negative) Urine Glucose (UA) (Negative) Urine Ketones (Negative) Urine Blood (Negative) Urine Nitrite (Negative) Urine Bilirubin (Negative) Urine Urobilinogen (<2.0) mg/dL Ur Leukocyte Esterase (Negative) Acetone, Qual Negative (Negative) 02/18/18 02/18/18 02/19/18 Range/Units 22:28 22:28 00:02 WBC (3.8-10.6) k/uL RBC (3.80-5.40) m/uL Hgb (11.4-16.0) gm/dL Hct (34.0-46.0) % MCV (80.0-100.0) fL MCH (25.0-35.0) pg MCHC (31.0-37.0) g/dL RDW (11.5-15.5) % Plt Count (150-450) k/uL Neutrophils % % Lymphocytes % % Monocytes % % Eosinophils % % Basophils % % Neutrophils # (1.3-7.7) k/uL Lymphocytes # (1.0-4.8) k/uL Monocytes # (0-1.0) k/uL Eosinophils # (0-0.7) k/uL Basophils # (0-0.2) k/uL Manual Slide Review PT 12.0 (9.0-12.0) sec INR 1.3 H (<1.2) APTT 24.5 (22.0-30.0) sec Sodium (137-145) mmol/L Potassium (3.5-5.1) mmol/L Chloride (98-107) mmol/L Carbon Dioxide (22-30) mmol/L Anion Gap mmol/L BUN (7-17) mg/dL Creatinine (0.52-1.04) mg/dL Est GFR (CKD-EPI)AfAm (>60 ml/min/1.73 sqM) Est GFR (CKD-EPI)NonAf (>60 ml/min/1.73 sqM) Glucose (74-99) mg/dL POC Glucose (mg/dL) 343 H (75-99) mg/dL POC Glu Delivery Driver ID Dwain, Heavenly Calcium (8.4-10.2) mg/dL Total Bilirubin (0.2-1.3) mg/dL AST (14-36) U/L ALT (9-52) U/L Alkaline Phosphatase (38-126) U/L Total Protein (6.3-8.2) g/dL Albumin (3.5-5.0) g/dL Urine Color Colorless Urine Appearance Clear (Clear) Urine pH 6.5 (5.0-8.0) Ur Specific [place] 1.004 (1.001-1.035) Urine Protein Negative (Negative) Urine Glucose (UA) 4+ H (Negative) Urine Ketones Negative (Negative) Urine Blood Negative (Negative) Urine Nitrite Negative (Negative) Urine Bilirubin Negative (Negative) Urine Urobilinogen <2.0 (<2.0) mg/dL Ur Leukocyte Esterase Negative (Negative) Acetone, Qual (Negative) Disposition Clinical Impression: Hyperglycemia Disposition: HOME SELF-CARE Condition: Good Instructions: Diabetic Hyperglycemia (ED) Is patient prescribed a controlled substance at d/c from ED?: No Referrals: Dario Underwood MD [Primary Care Provider] - 1-2 days Time of Disposition: 00:41
[2018-02-18 22:22] LABS: Glucose,Whole Blood 496 mg/dL (75-99)
[2018-02-18 22:43] LABS: Appearance,Urine Clear (Clear); Bilirubin,Urine Negative (Negative); Blood,Urine Negative (Negative); Color,Urine Colorless; Glucose,Urine (UA) 4+ (Negative); Ketones,Urine Negative (Negative); Leukocyte Esterase,Urine Negative (Negative); Nitrite,Urine Negative (Negative); PH, Urine 6.5 (5.0-8.0); Protein,Urine Negative (Negative); Specific Gravity,Urine 1.004 (1.001-1.035); Urobilinogen,Urine <2.0 mg/dL (<2.0)
[2018-02-18 22:50] LABS: Basophils % (A) 1 %; Eosinophils # (A) 0.1 k/uL (0-0.7); Eosinophils % (A) 2 %; HCT 33.3 % (34.0-46.0); HGB 11.1 gm/dL (11.4-16.0); Lymphocytes # (A) 0.9 k/uL (1.0-4.8); Lymphocytes % (A) 19 %; MCH 31.1 pg (25.0-35.0); MCHC 33.4 g/dL (31.0-37.0); MCV 92.9 fL (80.0-100.0); Monocytes # (A) 0.4 k/uL (0-1.0); Monocytes % (A) 8 %; Neutrophils # (A) 3.3 k/uL (1.3-7.7); Neutrophils % (A) 68 %; RBC 3.59 m/uL (3.80-5.40); RDW 15.5 % (11.5-15.5); WBC 4.9 k/uL (3.8-10.6)
[2018-02-18 22:52] LABS: ALT 46 U/L (9-52); AST 35 U/L (14-36); Albumin 3.7 g/dL (3.5-5.0); Alkaline Phosphatase 116 U/L (38-126); Anion Gap 11 mmol/L; Blood Urea Nitrogen 25 mg/dL (7-17); Calcium 9.2 mg/dL (8.4-10.2); Carbon Dioxide 26 mmol/L (22-30); Chloride 93 mmol/L (98-107); Glucose 449 mg/dL (74-99); Potassium 4.4 mmol/L (3.5-5.1); Sodium 130 mmol/L (137-145); Total Bilirubin 1.2 mg/dL (0.2-1.3); Total Protein 6.5 g/dL (6.3-8.2)
[2018-02-18 22:57] LABS: INR 1.3 (<1.2); Partial Thromboplastin Time 24.5 sec (22.0-30.0)
[2018-02-18] MEDS ORDERED: INSULIN REGULAR 100 UNIT/ML VIAL IV ONE (23:10)
[2018-02-18 23:20] LABS: Platelet Count 51 k/uL (150-450)
[2018-02-19 00:06] LABS: Glucose,Whole Blood 343 mg/dL (75-99)
[2018-02-19 00:43] LABS: Glucose,Whole Blood 317 mg/dL (75-99)
[2018-02-19 01:02] VITALS: BP 115/56; RESP 16; TEMP 98
== END 2018-02-19 01:02 | disposition home or self-care (01) ==
LOC: EC 21:50
DX: E11.65 Type 2 diabetes mellitus with hyperglycemia (principal); J45.909 Unspecified asthma, uncomplicated; I50.9 Heart failure, unspecified; F32.9 Major depressive disorder, single episode, unspecified; Z85.41 Personal history of malignant neoplasm of cervix uteri; Z87.891 Personal history of nicotine dependence; Z90.49 Acquired absence of other specified parts of digestive tract; Z90.710 Acquired absence of both cervix and uterus; Z98.51 Tubal ligation status; Z98.890 Other specified postprocedural states; Z79.4 Long term (current) use of insulin; Z79.899 Other long term (current) drug therapy; Z88.0 Allergy status to penicillin; Z88.1 Allergy status to other antibiotic agents; Z91.013 Allergy to seafood; Z91.030 Bee allergy status; Z91.048 Other nonmedicinal substance allergy status
CPT/HCPCS: 36415; 80053; 81003; 82009; 85025; 85610; 85730; 99284

== ENCOUNTER 2018-06-11 08:01 | Day surgery (SDC) | payer MEDICARE, BC ==
[2018-06-11 08:32] VITALS: TEMP 97.9
[2018-06-11 08:49] LABS: Mean Platelet Volume 9.5
[2018-06-11 08:53] LABS: Platelet Count 58 k/uL (150-450)
[2018-06-11 08:55] LABS: INR 1.3 (<1.2); Prothrombin Time 12.4 sec (9.0-12.0)
[2018-06-11 10:03] VITALS: RESP 16
[2018-06-11 10:15] VITALS: BP 106/47; PULSE 72
--- NOTE | 2018-06-11 12:11 | US ---
Therapeutic paracentesis. DATE OF EXAM: 06/11/2018 CLINICAL HISTORY: Ascites The procedure was discussed with the patient. The risks, complications, benefits, and alternatives we re discussed and any questions were answered. Informed consent was obtained. The patient was placed s upine on the ultrasound table and prepped and draped in the usual sterile fashion. All elements of maximal barrier technique were utilized. Under ultrasound guidance, access into the right lower quadrant was obtained, via the paracentesis catheter system and direct ultrasound guidanc e. Approximately 1.6 liters of straw-colored fluid was removed. The patient was stable throughout the pr ocedure and remained stable upon discharge from Department of Radiology. IMPRESSION: Successful therapeutic paracentesis under ultrasound guidance.
== END 2018-06-11 10:24 | disposition home or self-care (01) ==
LOC: RADPROMAIN 08:01
DX: R18.8 Other ascites (principal)
CPT/HCPCS: 49083; 82565; 85049; 85610

== ENCOUNTER 2018-08-15 06:50 | Day surgery (SDC) | payer MEDICARE, BC ==
[2018-08-15 08:40] VITALS: RESP 20; TEMP 98.7
[2018-08-15 08:52] LABS: Mean Platelet Volume 10.6
[2018-08-15 08:58] LABS: INR 1.3 (<1.2); Prothrombin Time 12.3 sec (9.0-12.0)
[2018-08-15 09:02] LABS: Platelet Count 67 k/uL (150-450)
[2018-08-15 10:39] VITALS: BP 111/58; PULSE 80
--- NOTE | 2018-08-15 13:07 | US ---
Therapeutic paracentesis. DATE OF EXAM: 08/15/2018 CLINICAL HISTORY: Ascites The procedure was discussed with the patient. The risks, complications, benefits, and alternatives we re discussed and any questions were answered. Informed consent was obtained. The patient was placed s upine on the ultrasound table and prepped and draped in the usual sterile fashion. All elements of maximal barrier technique were utilized. Under ultrasound guidance, access into the right lower quadrant was obtained, via the paracentesis catheter system and direct ultrasound guidanc e. Approximately 3.3 liters of straw-colored fluid was removed. The patient was stable throughout the pr ocedure and remained stable upon discharge from Department of Radiology. IMPRESSION: Successful therapeutic paracentesis under ultrasound guidance.
== END 2018-08-15 10:45 | disposition home or self-care (01) ==
LOC: RADPROMAIN 06:50
DX: R18.8 Other ascites (principal)
CPT/HCPCS: 36415; 49083; 82565; 85049; 85610

== ENCOUNTER → 2018-08-20 | Outpatient (CLI) | payer MEDICARE, BC ==
[2018-08-20 18:53] LABS: Albumin 3.8 g/dL (3.80-4.90); Albumin/Globulin Ratio 1.58 (1.20-2.10); Anion Gap 8.7 mmol/L (4.00-12.00); Calcium 8.9 mg/dL (8.7-10.3); Carbon Dioxide 22.3 mmol/L (21.6-31.8); Globulin 2.4 g/dL (2.1-3.7); LDL Cholesterol,Calculated 52.4 mg/dL (0.0-131.0); Potassium 4.4 mmol/L (3.5-5.5); Total Bilirubin 1.7 mg/dL (0.3-1.2); Total Protein 6.2 g/dL (6.2-8.2)
[2018-08-21 06:41] LABS: VLDL Calculation 17.6 mg/dL (5.00-40.00)
== END | disposition home or self-care (01) ==
LOC: LABWHC1 12:32
PROVIDERS: ATTEND Internal Medicine Endocrinology, Diabetes & Metabolism
DX: E11.65 Type 2 diabetes mellitus with hyperglycemia (principal)
CPT/HCPCS: 36415; 80053; 80061; 82043; 82570

== ENCOUNTER 2018-08-27 07:49 | Day surgery (SDC) | payer MEDICARE, BC ==
[2018-08-22 15:03] VITALS: BMI 27.4
[2018-08-27 08:50] LABS: Glucose,Whole Blood 128 mg/dL (75-99)
[2018-08-27 08:52] VITALS: RESP 16; TEMP 98.4
[2018-08-27] MEDS ORDERED: LIDOCAINE 1% INJ 10MG/ML (20 ML MDV) ONE (09:07)
[2018-08-27] MEDS ORDERED: PHENYLEPHRINE-0.9% NACL SYG 1 MG/10 ML SYRINGE ONE (09:07)
[2018-08-27] MEDS ORDERED: fentaNYL (PF) 50 MCG/ML 2 ML AMP ONE (09:07)
[2018-08-27] MEDS ORDERED: PROPOFOL 10 MG/ML 20 ML VIAL IV ONE (09:07)
[2018-08-27 09:25] LABS: HCT 30.8 % (34.0-46.0); HGB 10.6 gm/dL (11.4-16.0); MCH 34.2 pg (25.0-35.0); MCHC 34.4 g/dL (31.0-37.0); MCV 99.5 fL (80.0-100.0); Macrocytosis Slight; Mean Platelet Volume 9.4; RDW 14.8 % (11.5-15.5); WBC 3.4 k/uL (3.8-10.6)
[2018-08-27 09:42] LABS: Platelet Count 49 k/uL (150-450)
[2018-08-27 09:54] LABS: Glucose,Whole Blood 121 mg/dL (75-99)
--- NOTE | 2018-08-27 09:56 | P.PCN ---
Date of Procedure: 08/27/18 Procedure(s) Performed: Procedure: Total colonoscopy. Preoperative diagnosis: Screening for neoplasia. Postoperative diagnosis: Sigmoid diverticulosis with no evidence of acute diverticulitis, strictures, polyps or cancer. Preparation: HalfLytely prep. Sedation: Was provided by anesthesia. Brief clinical history: The patient is a 63-year-old female who is scheduled for this evaluation for screening for neoplasia age being her risk factor as well as history of polyps. There is no family history of colon cancer. She has no abdominal complaints, bleeding or anemia. Her last colonoscopy was in 2017 and she had polyp removed. At that time, his preparation was less than ideal. The patient is having evaluation for liver transplantation and this is part of the assessments requested by the transplant team at [facility]. Procedure: With the patient on her left lateral decubitus position and after informed consent and adequate sedation, the perianal area was inspected and it did not show any fissures or fistulas. There were no masses felt on digital rectal examination. The Olympus CFQ 160L video colonoscope was then inserted in the rectum in the usual fashion and advanced to the cecum. The mucosa appeared healthy. No polyps or tumors were seen. Few diverticular orifices were seen scattered in the sigmoid but I saw no evidence of acute diverticulitis or strictures. I retroflexed the endoscope in the rectum before the endoscope was withdrawn. The patient tolerated the procedure well. Plan: The patient was reassured. She will follow-up with you as planned and I recommended repeat colonoscopy in 5 years.
[2018-08-27 10:09] VITALS: BP 99/49; PULSE 77
== END 2018-08-27 10:34 | disposition home or self-care (01) ==
LOC: ORWHC2ENDO 07:49
DX: Z12.11 Encounter for screening for malignant neoplasm of colon (principal); K57.30 Diverticulosis of large intestine without perforation or abscess without bleeding; Z86.010 Personal history of colon polyps; I25.10 Atherosclerotic heart disease of native coronary artery without angina pectoris; I50.9 Heart failure, unspecified; J45.909 Unspecified asthma, uncomplicated; Z87.891 Personal history of nicotine dependence; E11.9 Type 2 diabetes mellitus without complications; M79.7 Fibromyalgia; K74.60 Unspecified cirrhosis of liver; I83.90 Asymptomatic varicose veins of unspecified lower extremity; Z79.4 Long term (current) use of insulin; Z79.899 Other long term (current) drug therapy; Z88.2 Allergy status to sulfonamides; Z88.1 Allergy status to other antibiotic agents; Z91.041 Radiographic dye allergy status; Z88.0 Allergy status to penicillin; Z91.013 Allergy to seafood
CPT/HCPCS: 85027; J2001; J3010; J2370; J2704; G0105; 45378

== ENCOUNTER 2018-09-17 07:33 | Day surgery (SDC) | payer MEDICARE, BC ==
[2018-09-17 08:31] VITALS: RESP 16; TEMP 97.9
[2018-09-17 08:39] LABS: Mean Platelet Volume 10.4
[2018-09-17 08:40] LABS: INR 1.3 (<1.2); Prothrombin Time 12.5 sec (9.0-12.0)
[2018-09-17 08:42] LABS: Platelet Count 63 k/uL (150-450)
[2018-09-17 09:25] VITALS: PULSE 84
[2018-09-17] MEDS: ALBUMIN HUMAN 25% 50 ML in EMPTY BAG 1 BAG IVPB SCH ×3 (09:50→10:52)
[2018-09-17 10:08] VITALS: BP 105/47
--- NOTE | 2018-09-17 10:56 | US ---
EXAMINATION TYPE: US paracentesis abd w/image DATE OF EXAM: 09/17/2018 COMPARISON: NONE HISTORY: Ascites. PROCEDURE: Maximal barrier technique was utilized. The skin overlying a suitable pocket of fluid was localized with ultrasound and the overlying skin was prepped and draped. Ultrasound was utilized with sterile technique. Lidocaine was used for local anesthesia and a skin jose made with a scalpel. Catheter was advanced under direct ultrasound guidance into a suitable pocket of fluid and approximately 5.2 liter s of serous fluid were removed. Catheter was withdrawn and hemostasis achieved. There is no immedia te complication; the patient is discharged in stable condition. IMPRESSION: STATUS POST ULTRASOUND GUIDED PARACENTESIS FOR PALLIATION OF ASCITES. THIS PROCEDURE WA S PERFORMED BY THE UNDERSIGNED.
== END 2018-09-17 10:50 | disposition home or self-care (01) ==
LOC: RADPROMAIN 07:33
DX: R18.8 Other ascites (principal)
CPT/HCPCS: 82565; 85049; 85610; 36415; 49083; P9047

== ENCOUNTER → 2018-09-24 | Outpatient (CLI) | payer MEDICARE, BC ==
[2018-09-24 10:56] LABS: INR 1.3 (<1.2); Prothrombin Time 12.6 sec (9.0-12.0)
[2018-09-24 11:06] LABS: ALT 47 U/L (9-52); AST 50 U/L (14-36); Albumin 3.2 g/dL (3.5-5.0); Alkaline Phosphatase 107 U/L (38-126); Anion Gap 8 mmol/L; Blood Urea Nitrogen 18 mg/dL (7-17); Calcium 8.9 mg/dL (8.4-10.2); Carbon Dioxide 25 mmol/L (22-30); Chloride 103 mmol/L (98-107); Globulin 3.1 g/dL; Glucose 256 mg/dL (74-99); Potassium 4.6 mmol/L (3.5-5.1); Sodium 136 mmol/L (137-145); Total Bilirubin 1.6 mg/dL (0.2-1.3); Total Protein 6.3 g/dL (6.3-8.2)
[2018-09-24 11:08] LABS: HGB 10.9 gm/dL (11.4-16.0); Hypochromasia Slight; MCH 32.9 pg (25.0-35.0); MCV 102.6 fL (80.0-100.0); Macrocytosis Slight; Mean Platelet Volume 11.9; RBC 3.32 m/uL (3.80-5.40); RDW 14.9 % (11.5-15.5); WBC 4.1 k/uL (3.8-10.6)
[2018-09-24 11:12] LABS: Platelet Count 58 k/uL (150-450)
== END | disposition home or self-care (01) ==
LOC: LABWHC1 10:21
PROVIDERS: ATTEND Internal Medicine Gastroenterology
DX: K75.81 Nonalcoholic steatohepatitis (NASH) (principal)
CPT/HCPCS: 36415; 80048; 80076; 85027; 85610

== ENCOUNTER 2018-10-15 07:44 | Day surgery (SDC) | payer MEDICARE, BC ==
[2018-10-15 08:43] LABS: Mean Platelet Volume 10.9
[2018-10-15 08:44] LABS: Platelet Count 47 k/uL (150-450)
[2018-10-15 08:57] LABS: INR 1.2 (<1.2); Prothrombin Time 12.7 sec (9.0-12.0)
[2018-10-15 09:31] VITALS: BP 125/74; PULSE 78; RESP 16; TEMP 97.9
[2018-10-15] MEDS: ALBUMIN HUMAN 25% 50 ML in EMPTY BAG 1 BAG IVPB SCH (09:55)
== END 2018-10-15 09:56 | disposition home or self-care (01) ==
LOC: RADPROMAIN 07:44
DX: R18.8 Other ascites (principal); Z53.8 Procedure and treatment not carried out for other reasons
CPT/HCPCS: 36415; 85049; 85610

== ENCOUNTER 2018-10-16 12:38 | Day surgery (SDC) | payer MEDICARE, BC ==
[2018-10-16 13:36] VITALS: RESP 16
[2018-10-16] MEDS: ALBUMIN HUMAN 25% 50 ML in EMPTY BAG 1 BAG IVPB SCH ×3 (14:40→15:04)
[2018-10-16 15:04] VITALS: TEMP 98
[2018-10-16 15:15] VITALS: BP 115/60; PULSE 77
--- NOTE | 2018-10-17 09:47 | US ---
Therapeutic paracentesis. DATE OF EXAM: 10/16/2018 CLINICAL HISTORY: Ascites The procedure was discussed with the patient. The risks, complications, benefits, and alternatives we re discussed and any questions were answered. Informed consent was obtained. The patient was placed s upine on the ultrasound table and prepped and draped in the usual sterile fashion. All elements of maximal barrier technique were utilized. Under ultrasound guidance, access into the left lower quadrant was obtained, via the paracentesis catheter system and direct ultrasound guidance . Approximately 4.6 liters of straw-colored fluid was removed. The patient was stable throughout the pr ocedure and remained stable upon discharge from Department of Radiology. IMPRESSION: Successful therapeutic paracentesis under ultrasound guidance.
== END 2018-10-16 15:54 | disposition home or self-care (01) ==
LOC: RADPROMAIN 12:38
DX: R18.8 Other ascites (principal)
CPT/HCPCS: 49083; P9035; P9047

== ENCOUNTER 2018-11-12 12:50 | Day surgery (SDC) | payer MEDICARE, BC ==
[2018-11-12 13:23] LABS: Mean Platelet Volume 9.2
[2018-11-12 13:25] VITALS: TEMP 97.7
[2018-11-12 13:51] LABS: INR 1.1 (<1.2)
[2018-11-12 13:54] LABS: Platelet Count 60 k/uL (150-450)
[2018-11-12] MEDS: ALBUMIN HUMAN 25% 50 ML in EMPTY BAG 1 BAG IVPB SCH ×2 (15:08→15:19)
[2018-11-12 16:03] VITALS: BP 109/54; PULSE 78; RESP 16
--- NOTE | 2018-11-12 17:07 | US ---
EXAMINATION TYPE: US paracentesis abd w/image DATE OF EXAM: 11/12/2018 COMPARISON: NONE HISTORY: Ascites. PROCEDURE: Maximal barrier technique was utilized. The skin overlying a suitable pocket of fluid was localized with ultrasound and the overlying skin was prepped and draped. Ultrasound was utilized with sterile technique. Lidocaine was used for local anesthesia and a skin jose made with a scalpel. Catheter was advanced under direct ultrasound guidance into a suitable pocket of fluid and approximately 5.8 liter s of serous fluid were removed. Catheter was withdrawn and hemostasis achieved. There is no immedia te complication; the patient is discharged in stable condition. IMPRESSION: STATUS POST ULTRASOUND GUIDED PARACENTESIS FOR PALLIATION OF ASCITES. THIS PROCEDURE WA S PERFORMED BY THE UNDERSIGNED.
== END 2018-11-12 15:55 | disposition home or self-care (01) ==
LOC: RADPROMAIN 12:50
DX: R18.8 Other ascites (principal)
CPT/HCPCS: 82565; 85049; 85610; 49083; P9047

== ENCOUNTER 2018-11-26 12:41 | Day surgery (SDC) | payer MEDICARE, BC ==
[2018-11-26 13:02] VITALS: TEMP 97.9
[2018-11-26 13:08] LABS: Mean Platelet Volume 10.4
[2018-11-26 13:09] LABS: Platelet Count 53 k/uL (150-450)
[2018-11-26 13:10] LABS: INR 1.2 (<1.2); Prothrombin Time 12.4 sec (9.0-12.0)
[2018-11-26 13:51] VITALS: RESP 16
[2018-11-26 14:05] VITALS: PULSE 73
[2018-11-26] MEDS: ALBUMIN HUMAN 25% 50 ML in EMPTY BAG 1 BAG IVPB SCH ×3 (14:06→14:35)
[2018-11-26 14:34] VITALS: BP 114/54
--- NOTE | 2018-11-26 15:23 | US ---
Therapeutic paracentesis. DATE OF EXAM: 11/26/2018 CLINICAL HISTORY: Ascites The procedure was discussed with the patient. The risks, complications, benefits, and alternatives we re discussed and any questions were answered. Informed consent was obtained. The patient was placed s upine on the ultrasound table and prepped and draped in the usual sterile fashion. All elements of maximal barrier technique were utilized. Under ultrasound guidance, access into the right lower quadrant was obtained, via the paracentesis catheter system and direct ultrasound guidanc e. Approximately 6.4 liters of straw-colored fluid was removed. The patient was stable throughout the pr ocedure and remained stable upon discharge from Department of Radiology. IMPRESSION: Successful therapeutic paracentesis under ultrasound guidance.
== END 2018-11-26 15:05 | disposition home or self-care (01) ==
LOC: RADPROMAIN 12:41
DX: R18.8 Other ascites (principal)
CPT/HCPCS: 82565; 85049; 85610; 49083; P9047

== ENCOUNTER 2018-12-10 12:40 | Day surgery (SDC) | payer MEDICARE, BC ==
[2018-12-10 13:22] LABS: Mean Platelet Volume 9.4
[2018-12-10 13:29] LABS: INR 1.2 (<1.2); Prothrombin Time 12.3 sec (9.0-12.0)
[2018-12-10 13:35] LABS: Platelet Count 49 k/uL (150-450)
[2018-12-10 13:37] VITALS: TEMP 98
[2018-12-10 15:14] VITALS: RESP 14
[2018-12-10 15:17] VITALS: BP 116/55; PULSE 76
[2018-12-10] MEDS: ALBUMIN HUMAN 25% 50 ML in EMPTY BAG 1 BAG IVPB SCH ×2 (15:18→15:19)
--- NOTE | 2018-12-10 15:54 | US ---
EXAMINATION TYPE: US paracentesis abd w/image DATE OF EXAM: 12/10/2018 COMPARISON: NONE HISTORY: Ascites. PROCEDURE: Maximal barrier technique was utilized. The skin overlying a suitable pocket of fluid was localized with ultrasound and the overlying skin was prepped and draped. Ultrasound was utilized with sterile technique. Lidocaine was used for local anesthesia and a skin jose made with a scalpel. Catheter was advanced under direct ultrasound guidance into a suitable pocket of fluid and approximately 3.8 liter s of serous fluid were removed. Catheter was withdrawn and hemostasis achieved. There is no immedia te complication; the patient is discharged in stable condition. IMPRESSION: STATUS POST ULTRASOUND GUIDED PARACENTESIS FOR PALLIATION OF ASCITES. THIS PROCEDURE WA S PERFORMED BY THE UNDERSIGNED.
== END 2018-12-10 15:35 | disposition home or self-care (01) ==
LOC: RADPROMAIN 12:40
DX: R18.8 Other ascites (principal)
CPT/HCPCS: 49083; 82565; 85049; 85610

== ENCOUNTER → 2018-12-20 | Outpatient (CLI) | payer MEDICARE, BC ==
[2018-12-20 12:18] LABS: HCT 35.2 % (34.0-46.0); HGB 11.7 gm/dL (11.4-16.0); MCH 34.4 pg (25.0-35.0); MCHC 33.2 g/dL (31.0-37.0); MCV 103.6 fL (80.0-100.0); Macrocytosis Moderate; RDW 15.8 % (11.5-15.5); WBC 4.9 k/uL (3.8-10.6)
[2018-12-20 12:20] LABS: INR 1.2 (<1.2)
[2018-12-20 12:21] LABS: Prothrombin Time 12.3 sec (9.0-12.0)
[2018-12-20 12:23] LABS: Platelet Count 53 k/uL (150-450)
[2018-12-20 12:30] LABS: ALT 56 U/L (9-52); AST 48 U/L (14-36); Albumin 3.4 g/dL (3.5-5.0); Albumin/Globulin Ratio 1.1; Alkaline Phosphatase 102 U/L (38-126); Anion Gap 7 mmol/L; Bilirubin,Unconjugated 1.5 mg/dL (0.0-1.1); Blood Urea Nitrogen 17 mg/dL (7-17); Carbon Dioxide 24 mmol/L (22-30); Chloride 107 mmol/L (98-107); Glucose 72 mg/dL (74-99); Sodium 138 mmol/L (137-145); Total Protein 6.4 g/dL (6.3-8.2)
== END | disposition home or self-care (01) ==
LOC: LABWHC1 11:19
PROVIDERS: ATTEND Internal Medicine Gastroenterology
DX: K75.81 Nonalcoholic steatohepatitis (NASH) (principal)
CPT/HCPCS: 36415; 80048; 80076; 85027; 85610

== ENCOUNTER 2018-12-24 13:03 | Day surgery (SDC) | payer MEDICARE, BC ==
[2018-12-24 13:51] VITALS: RESP 16; TEMP 97.8
[2018-12-24 14:04] LABS: Mean Platelet Volume 10.4
[2018-12-24 14:19] LABS: INR 1.2 (<1.2); Prothrombin Time 12.1 sec (9.0-12.0)
[2018-12-24 14:22] LABS: Platelet Count 59 k/uL (150-450)
[2018-12-24] MEDS: ALBUMIN HUMAN 25% 50 ML in EMPTY BAG 1 BAG IVPB SCH ×3 (15:06→15:30)
[2018-12-24 15:23] VITALS: BP 101/47; PULSE 78
--- NOTE | 2018-12-24 16:14 | US ---
EXAMINATION TYPE: US paracentesis abd w/image DATE OF EXAM: 12/24/2018 COMPARISON: NONE HISTORY: Ascites. PROCEDURE: Maximal barrier technique was utilized. The skin overlying a suitable pocket of fluid was localized with ultrasound and the overlying skin was prepped and draped. Ultrasound was utilized with sterile technique. Lidocaine was used for local anesthesia and a skin jose made with a scalpel. Catheter was advanced under direct ultrasound guidance into a suitable pocket of fluid and approximately 5 liters of serous fluid were removed. Catheter was withdrawn and hemostasis achieved. There is no immediate complication; the patient is discharged in stable condition. IMPRESSION: STATUS POST ULTRASOUND GUIDED PARACENTESIS FOR PALLIATION OF ASCITES. THIS PROCEDURE WA S PERFORMED BY THE UNDERSIGNED.
== END 2018-12-24 15:55 | disposition home or self-care (01) ==
LOC: RADPROMAIN 13:03
DX: R18.8 Other ascites (principal)
CPT/HCPCS: 82565; 85049; 85610; 36415; 49083; P9047

== ENCOUNTER 2020-02-05 08:51 | Day surgery (SDC) | payer BC, MEDICARE ==
[2020-02-05 09:22] LABS: Mean Platelet Volume 13.6
[2020-02-05 09:28] LABS: Platelet Count 41 k/uL (150-450)
[2020-02-05 09:34] LABS: INR 1.2 (<1.2); Prothrombin Time 12.5 sec (9.0-12.0)
[2020-02-05 09:37] VITALS: BP 116/64; PULSE 66; RESP 16; TEMP 98.3
--- NOTE | 2020-02-05 10:15 | US ---
Ultrasound-guided paracentesis. DATE OF EXAM: 02/05/2020 CLINICAL HISTORY: Ascites Patient's platelet count was abnormally low and not within the acceptable levels. Percutaneous parace ntesis. Procedure deferred. IMPRESSION: Deferred procedure due to abnormal blood work.
== END 2020-02-05 10:25 | disposition home or self-care (01) ==
LOC: RADPROMAIN 08:51
PROVIDERS: ATTEND Internal Medicine Gastroenterology
DX: R18.8 Other ascites (principal); Z53.09 Procedure and treatment not carried out because of other contraindication
CPT/HCPCS: 36415; 76705; 82947; 85049; 85610

== ENCOUNTER 2020-02-06 09:08 | Day surgery (SDC) | payer MEDICARE ==
[2020-02-06 10:21] VITALS: RESP 18
[2020-02-06] MEDS: ALBUMIN HUMAN 25% 50 ML in EMPTY BAG 1 BAG IVPB SCH ×4 (11:06→12:02)
[2020-02-06 11:08] VITALS: TEMP 97.5
--- NOTE | 2020-02-06 11:57 | US ---
Ultrasound-guided paracentesis. DATE OF EXAM: 02/06/2020 CLINICAL HISTORY: Ascites The procedure was discussed with the patient. The risks, complications, benefits, and alternatives we re discussed and any questions were answered. This includes the risk of life-threatening bleeding to the platelets count. Informed consent was obtained. The patient was placed supine on the ultrasound t able and prepped and draped in the usual sterile fashion. Preprocedural and intraprocedural platelets were administered. All elements of maximal barrier technique were utilized. Under ultrasound guidance, access into the left lower quadrant was obtained, via the paracentesis catheter system and direct ultrasound guidance . Approximately 9.4 liters of straw-colored fluid was removed. The patient was stable throughout the pr ocedure and remained stable upon discharge from Department of Radiology. IMPRESSION: Successful paracentesis under ultrasound guidance.
[2020-02-06 12:37] VITALS: BP 107/62; PULSE 74
== END 2020-02-06 12:35 | disposition home or self-care (01) ==
LOC: RADPROMAIN 09:08
PROVIDERS: ATTEND Internal Medicine Gastroenterology
DX: R18.8 Other ascites (principal)
CPT/HCPCS: 49083; P9035; P9047

== ENCOUNTER 2020-02-19 08:29 | Day surgery (SDC) | payer MEDICARE ==
[2020-02-19 09:02] LABS: Mean Platelet Volume 11.6
[2020-02-19 09:05] LABS: Platelet Count 43 k/uL (150-450)
[2020-02-19 09:09] LABS: INR 1.3 (<1.2); Prothrombin Time 12.9 sec (9.0-12.0)
[2020-02-19 09:38] VITALS: RESP 16
[2020-02-19] MEDS: ALBUMIN HUMAN 25% 50 ML in EMPTY BAG 1 BAG IVPB SCH ×4 (09:53→10:50)
[2020-02-19 10:30] VITALS: TEMP 97.6
[2020-02-19 11:48] VITALS: BP 120/69; PULSE 77
--- NOTE | 2020-02-19 12:38 | US ---
EXAMINATION TYPE: US paracentesis abd w/image DATE OF EXAM: 02/19/2020 COMPARISON: NONE HISTORY: Ascites. PROCEDURE: Maximal barrier technique was utilized. The skin overlying a suitable pocket of fluid was localized with ultrasound and the overlying skin was prepped and draped. Ultrasound was utilized with sterile technique. Lidocaine was used for local anesthesia and a skin jose made with a scalpel. Catheter was advanced under direct ultrasound guidance into a suitable pocket of fluid and approximately 6 liters of serous fluid were removed. Catheter was withdrawn and hemostasis achieved. There is no immediate complication; the patient is discharged in stable condition. IMPRESSION: STATUS POST ULTRASOUND GUIDED PARACENTESIS FOR PALLIATION OF ASCITES. THIS PROCEDURE WA S PERFORMED BY THE UNDERSIGNED.
== END 2020-02-19 11:30 | disposition home or self-care (01) ==
LOC: RADPROMAIN 08:29
PROVIDERS: ATTEND Internal Medicine Gastroenterology
DX: R18.8 Other ascites (principal)
CPT/HCPCS: 82565; 82947; 85049; 85610; 36415; 49083; P9035; P9047

== ENCOUNTER → 2020-03-02 | Outpatient (CLI) | payer MEDICARE | END | disposition home or self-care (01) | LOC: LABWHC1 09:19 | PROVIDERS: ATTEND Internal Medicine Gastroenterology | DX: U07.1 COVID-19 (principal) | CPT/HCPCS: 87635 ==

== ENCOUNTER 2020-03-04 08:43 | Day surgery (SDC) | payer MEDICARE ==
[2020-03-04 09:08] LABS: Mean Platelet Volume 11.9
[2020-03-04 09:13] LABS: Platelet Count 36 k/uL (150-450)
[2020-03-04 09:22] LABS: INR 1.2 (<1.2); Prothrombin Time 12.3 sec (9.0-12.0)
[2020-03-04] MEDS: ALBUMIN HUMAN 25% 50 ML in EMPTY BAG 1 BAG IVPB SCH ×5 (10:00→12:15)
[2020-03-04 11:09] VITALS: PULSE 83; RESP 16; TEMP 97.4
[2020-03-04 11:54] VITALS: BP 113/68
--- NOTE | 2020-03-05 14:18 | US ---
EXAMINATION TYPE: US paracentesis abd w/image DATE OF EXAM: 03/04/2020 COMPARISON: NONE HISTORY: Ascites. PROCEDURE: Maximal barrier technique was utilized. The skin overlying a suitable pocket of fluid was localized with ultrasound and the overlying skin was prepped and draped. Ultrasound was utilized with sterile technique. Lidocaine was used for local anesthesia and a skin jose made with a scalpel. Catheter was advanced under direct ultrasound guidance into a suitable pocket of fluid and approximately 9.9 liter s of serous fluid were removed. Catheter was withdrawn and hemostasis achieved. There is no immedia te complication; the patient is discharged in stable condition. IMPRESSION: STATUS POST ULTRASOUND GUIDED PARACENTESIS FOR PALLIATION OF ASCITES. THIS PROCEDURE WA S PERFORMED BY THE UNDERSIGNED.
== END 2020-03-04 12:20 | disposition home or self-care (01) ==
LOC: RADPROMAIN 08:43
PROVIDERS: ATTEND Internal Medicine Gastroenterology
DX: R18.8 Other ascites (principal)
CPT/HCPCS: 36415; 49083; 82565; 82947; 85049; 85610

== ENCOUNTER 2020-03-04 14:36 | Observation (INO) | payer MEDICARE ==
--- NOTE | 2020-03-04 15:09 | ED ---
General Adult HPI - General Chief complaint: Shortness of Breath Stated complaint: Diff Breathing CHF Time Seen by Provider: 03/04/20 14:58 Source: patient Mode of arrival: wheelchair Limitations: no limitations - History of Present Illness Initial comments: Dictation was produced using [employer] dictation software. please excuse any grammatical, word or spelling errors. This patient was cared for during a federal and state declared state of emerg ency secondary to Covid 19 Chief Complaint: 64-year-old female past medical history of liver disease and heart failure presents with dyspnea for 3 weeks History of Present Illness: 64-year-old female presents today with dyspnea for the last 3 weeks. Patient also states that she has increased swelling in her bilateral lower extremities. Patient states she has a history of heart failure. She does take Lasix. She takes 40 mg by mouth in the morning and 20 mg at night. Earlier today she had a paracentesis performed were 9.9 L was removed. Patient gets paracentesis every 10 days. Patient denies any chest pain. She states that her symptoms of dyspnea worse with exertion. Patient states she's had had symptoms like this in the past. Denies any cough. She states that after her paracentesis earlier today her breathing symptoms mildly improved. The ROS documented in this emergency department record has been reviewed and confirmed by me. Those systems with pertinent positive or negative responses have been documented in the HPI. All other systems are other negative and/or noncontributory. PHYSICAL EXAM: General Impression: Alert and oriented x3, minimal respiratory distress HEENT: Normocephalic atraumatic, extra-ocular movements intact, pupils equal and reactive to light bilaterally, mucous membranes moist. Cardiovascular: Heart regular rate and rhythm Chest: Able to complete full sentences, no retractions, no tachypnea, able to complete 8-10 word sentence Abdomen: abdomen soft, non-tender, non-distended, no organomegaly Musculoskeletal: Pulses present and equal in all extremities, 2+ pitting edema bilateral lower extremities Motor: no focal deficits noted Neurological: CN II-XII grossly intact, no focal motor or sensory deficits noted Skin: Intact with no visualized rashes Psych: Normal affect and mood ED course: 64-year-old female with past medical history of heart failure presents with dyspnea. Vital signs upon arrival are within acceptable limits. Laboratory evaluation obtained. Patient has leukopenia 1.4, hemoglobin of 7.6. These appear to be new findings. Last hemoglobin we have was from November of last year which was 12. Patient has thrombocytopenia which appears to be around patient's baseline. Metabolic panel shows lactic acidosis 2.6. Patient given 500 mL normal saline bolus. Troponins negative. BNP peptide is negative. Chest x-ray is nonacute. At this point there is concern that patient's dyspnea secondary to anemia. Patient be admitted for serial CBC and turning of lactic acid level. Lactic acid level could be secondary to liver disease. Discussed patient case with Dr. Jc who is willing to accept patients care. There is concern of perhaps a GI bleed. Patient given Protonix. EKG interpretation: Ventricular rate 79, normal sinus rhythm,. 136, QRS 76, QTC 474. No IN prolongation, no QTC prolongation, no ST or T-wave changes noted. EKG compared to 09/15/2017 showing no changes. Overall, this EKG is unremarkable - Related Data Home Medications Medication Instructions Recorded Confirmed Montelukast [Singulair] 10 mg PO DAILY PRN 07/10/14 03/04/20 Ezetimibe [Zetia] 10 mg PO DAILY 09/04/16 03/04/20 INSULIN LISPRO (For Pump) [humaLOG 0.01 units SQ-PUMP CONTINUOUS 09/04/16 03/04/20 (For Pump)] Spironolactone [Aldactone] 50 mg PO DAILY 10/05/16 03/04/20 Sertraline [Zoloft] 25 mg PO DAILY 01/12/17 03/04/20 Acetaminophen [Tylenol] 325 mg PO Q4H PRN 09/15/17 03/04/20 EPINEPHrine [Epipen 2-Sanchez] 0.3 mg IM ONCE PRN 11/23/17 03/04/20 Propranolol [Inderal] 10 mg PO BID 06/11/18 03/04/20 Lactulose 20 gm PO DAILY 08/22/18 03/04/20 Ergocalciferol (Vitamin D2) 50,000 unit PO Q7DAYS 09/17/18 03/04/20 [Vitamin D2] Atorvastatin [Lipitor] 40 mg PO HS 02/03/20 03/04/20 Ferrous Sulfate [Iron] 1 tab PO W/BRKFST 02/03/20 03/04/20 Furosemide [Lasix] 20 mg PO BID 02/03/20 03/04/20 Midodrine [ProAmatine] 5 mg PO TID 02/03/20 03/04/20 Vitamin A Acetate [Vitamin A] 1 tab PO DAILY 02/03/20 03/04/20 Previous Rx's Medication Instructions Recorded Pantoprazole Sodium [Protonix] 40 mg PO BID #60 tablet. 11/09/17 Allergies Allergy/AdvReac Type Severity Reaction Status Date / Time doxycycline Allergy Rash/Hives Verified 03/04/20 14:52 iodine Allergy Rash/Hives Verified 03/04/20 14:52 Penicillins Allergy Rash/Hives Verified 03/04/20 14:52 shellfish derived Allergy Rash/Hives Verified 03/04/20 14:52 Sulfa (Sulfonamide Allergy Rash/Hives Verified 03/04/20 14:52 Antibiotics) venom-honey bee Allergy Anaphylaxis Verified 03/04/20 14:52 [bee venom (honey bee)] Review of Systems ROS Statement: Those systems with pertinent positive or pertinent negative responses have been documented in the HPI. ROS Other: All systems not noted in ROS Statement are negative. Past Medical History Past Medical History: Asthma, Coronary Artery Disease (CAD), Cancer, Heart Failure, Diabetes Mellitus, Fibromyalgia, Liver Disease, Skin Disorder Additional Past Medical History / Comment(s): Non-ETOH cirrhosis, ascities, esophageal varices, pancytopenia, thrombycytopenia, anemia, IDDM with insulin pump, several nodules both lungs being monitored, urinary leakage at times and pt states she has diarrhea much of the time, psoriasis, cervical cancer with hysterectomy, pt states 2 blockages in back of heart, awaiting liver transplant and CABG at [facility] in [place]. Patient has been approved but waiting for grandson to get worked up as a donor. Grandson not a match for donor. Patient awaiting another potential match for donor. recently . Both surgeries have been postponed. History of Any Multi-Drug Resistant Organisms: None Reported Past Surgical History: Back Surgery, Cholecystectomy, Hysterectomy, Orthopedic Surgery, Tonsillectomy, Tubal Ligation Additional Past Surgical History / Comment(s): multi large volume Paracentesis, EGD with banded esophageal varices, colonoscopies, bilateral rotator cuff repairs, bilateral breast bx-benign, back surgery in 2014 Past Anesthesia/Blood Transfusion Reactions: Previous Problems w/ Anesthesia Additional Past Anesthesia/Blood Transfusion Reaction / Comment(s): difficulty breathing when coming out of anesthesia; difficulty waking up. Hypotension with general anesthesia. blood transfusions without reaction. Past Psychological History: Depression Smoking Status: Former smoker Past Alcohol Use History: None Reported Past Drug Use History: None Reported - Past Family History Mother Family Medical History: Cancer, Dementia, Osteoarthritis (OA) Additional Family Medical History / Comment(s): skin cancer. Father Family Medical History: Coronary Artery Disease (CAD) Additional Family Medical History / Comment(s): cabg/pacemaker Brother(s) Family Medical History: Cancer Sister(s) Family Medical History: Cancer Additional Family Medical History / Comment(s): Breast CA. General Exam Limitations: no limitations Course Vital Signs 03/04/20 14:47 Temperature 97.4 F L Pulse Rate 79 Respiratory 20 Rate Blood Pressure 118/36 O2 Sat by Pulse 98 Oximetry Medical Decision Making - Lab Data Result diagrams: 03/04/20 15:25 03/04/20 15:25 Lab Results 03/04/20 03/04/20 03/04/20 Range/Units 15:25 15:25 15:25 WBC 1.4 L* (3.8-10.6) k/uL RBC 2.59 L (3.80-5.40) m/uL Hgb 7.6 L (11.4-16.0) gm/dL Hct 24.5 L (34.0-46.0) % MCV 94.6 (80.0-100.0) fL MCH 29.4 (25.0-35.0) pg MCHC 31.1 (31.0-37.0) g/dL RDW 15.9 H (11.5-15.5) % Plt Count 31 L (150-450) k/uL Neutrophils % 66 % Lymphocytes % 17 % Monocytes % 10 % Eosinophils % 4 % Basophils % 0 % Neutrophils # 0.9 L (1.3-7.7) k/uL Lymphocytes # 0.2 L (1.0-4.8) k/uL Monocytes # 0.1 (0-1.0) k/uL Eosinophils # 0.1 (0-0.7) k/uL Basophils # 0.0 (0-0.2) k/uL Hypochromasia Marked PT 13.1 H (9.0-12.0) sec INR 1.3 H (<1.2) APTT 23.4 (22.0-30.0) sec Sodium 138 (137-145) mmol/L Potassium 4.2 (3.5-5.1) mmol/L Chloride 106 (98-107) mmol/L Carbon Dioxide 22 (22-30) mmol/L Anion Gap 10 mmol/L BUN 16 (7-17) mg/dL Creatinine 1.09 H (0.52-1.04) mg/dL Est GFR (CKD-EPI)AfAm 61 (>60 ml/min/1.73 sqM) Est GFR (CKD-EPI)NonAf 53 (>60 ml/min/1.73 sqM) Glucose 376 H (74-99) mg/dL Plasma Lactic Acid Juan (0.7-2.0) mmol/L Calcium 8.7 (8.4-10.2) mg/dL Magnesium 2.1 (1.6-2.3) mg/dL Total Bilirubin 1.2 (0.2-1.3) mg/dL AST 32 (14-36) U/L ALT 19 (4-34) U/L Alkaline Phosphatase 88 (38-126) U/L Troponin I (0.000-0.034) ng/mL NT-Pro-B Natriuret Pep pg/mL Total Protein 6.1 L (6.3-8.2) g/dL Albumin 3.5 (3.5-5.0) g/dL 03/04/20 03/04/20 03/04/20 Range/Units 15:25 15:25 15:25 WBC (3.8-10.6) k/uL RBC (3.80-5.40) m/uL Hgb (11.4-16.0) gm/dL Hct (34.0-46.0) % MCV (80.0-100.0) fL MCH (25.0-35.0) pg MCHC (31.0-37.0) g/dL RDW (11.5-15.5) % Plt Count (150-450) k/uL Neutrophils % % Lymphocytes % % Monocytes % % Eosinophils % % Basophils % % Neutrophils # (1.3-7.7) k/uL Lymphocytes # (1.0-4.8) k/uL Monocytes # (0-1.0) k/uL Eosinophils # (0-0.7) k/uL Basophils # (0-0.2) k/uL Hypochromasia PT (9.0-12.0) sec INR (<1.2) APTT (22.0-30.0) sec Sodium (137-145) mmol/L Potassium (3.5-5.1) mmol/L Chloride (98-107) mmol/L Carbon Dioxide (22-30) mmol/L Anion Gap mmol/L BUN (7-17) mg/dL Creatinine (0.52-1.04) mg/dL Est GFR (CKD-EPI)AfAm (>60 ml/min/1.73 sqM) Est GFR (CKD-EPI)NonAf (>60 ml/min/1.73 sqM) Glucose (74-99) mg/dL Plasma Lactic Acid Juan 2.6 H* (0.7-2.0) mmol/L Calcium (8.4-10.2) mg/dL Magnesium (1.6-2.3) mg/dL Total Bilirubin (0.2-1.3) mg/dL AST (14-36) U/L ALT (4-34) U/L Alkaline Phosphatase (38-126) U/L Troponin I <0.012 (0.000-0.034) ng/mL NT-Pro-B Natriuret Pep 257 pg/mL Total Protein (6.3-8.2) g/dL Albumin (3.5-5.0) g/dL Disposition Clinical Impression: Anemia Disposition: ADMITTED IP TO THIS HOSP Condition: Fair Referrals: Dario Underwood MD [Primary Care Provider] - 1-2 days Decision Time: 17:53
--- NOTE | 2020-03-04 15:40 | XR ---
EXAMINATION TYPE: XR chest 2V DATE OF EXAM: 03/04/2020 COMPARISON: 11/05/2017 HISTORY: Shortness of breath and lower extremity swelling TECHNIQUE: Frontal and lateral views of the chest are obtained. FINDINGS: There is no focal air space opacity, pleural effusion, or pneumothorax seen. The cardiac silhouette size is again upper limits of normal. The osseous structures are intact. Cholecystectomy clips are seen in the lateral view. The known sub-3 mm pulmonary nodules are not visualized on radio graph and should be followed with CT. IMPRESSION: No acute cardiopulmonary process.
[2020-03-04 16:00] LABS: Basophils % (A) 0 %; Eosinophils # (A) 0.1 k/uL (0-0.7); Eosinophils % (A) 4 %; HCT 24.5 % (34.0-46.0); HGB 7.6 gm/dL (11.4-16.0); Hypochromasia Marked; Lymphocytes # (A) 0.2 k/uL (1.0-4.8); Lymphocytes % (A) 17 %; MCH 29.4 pg (25.0-35.0); MCHC 31.1 g/dL (31.0-37.0); MCV 94.6 fL (80.0-100.0); Mean Platelet Volume 13.5; Monocytes # (A) 0.1 k/uL (0-1.0); Monocytes % (A) 10 %; Neutrophils # (A) 0.9 k/uL (1.3-7.7); Neutrophils % (A) 66 %; RBC 2.59 m/uL (3.80-5.40); RDW 15.9 % (11.5-15.5)
[2020-03-04 16:08] LABS: INR 1.3 (<1.2)
[2020-03-04 16:09] LABS: Albumin 3.5 g/dL (3.5-5.0); Calcium 8.7 mg/dL (8.4-10.2); Magnesium 2.1 mg/dL (1.6-2.3); Partial Thromboplastin Time 23.4 sec (22.0-30.0); Potassium 4.2 mmol/L (3.5-5.1); Prothrombin Time 13.1 sec (9.0-12.0); Total Bilirubin 1.2 mg/dL (0.2-1.3); Total Protein 6.1 g/dL (6.3-8.2)
[2020-03-04 16:16] LABS: WBC 1.4 k/uL (3.8-10.6)
[2020-03-04 16:25] LABS: Platelet Count 31 k/uL (150-450)
[2020-03-04] MEDS ORDERED: SODIUM CHLORIDE 0.9% 500 ML 500 ML IV STA (17:48)
[2020-03-04] MEDS ORDERED: NALOXONE 0.4 MG/ML 1 ML VIAL IV PRN (17:51)
[2020-03-04] MEDS ORDERED: SODIUM CHLORIDE 0.9% 1,000 ML IV SCH (18:00)
[2020-03-04] MEDS: PANTOPRAZOLE 40 MG/10 ML VIAL IV SCH (18:10)
[2020-03-04] MEDS ORDERED: INSULIN ASPART (NovoLOG) 100 UNIT/ML VIAL SQ PRN (19:50)
[2020-03-04] MEDS ORDERED: INSULIN PUMP BASAL RATES 1 EACH MISC MISCELLANE PRN (19:50)
[2020-03-04] MEDS ORDERED: INSPUCOR MISCELLANE PRN (19:50)
[2020-03-04] MEDS: MIDODRINE 5 MG TAB PO SCH (20:22)
[2020-03-04] MEDS: PROPRANOLOL 10 MG TAB PO SCH (20:22)
[2020-03-04] MEDS ORDERED: ATORVASTATIN 40 MG TAB PO SCH (21:00)
[2020-03-04 21:36] LABS: Glucose,Whole Blood 334 mg/dL (75-99)
[2020-03-04] MEDS: INSULIN PUMP MEAL BOLUS 1 UNIT MISC MISCELLANE SCH (21:53)
[2020-03-05 06:47] LABS: Glucose,Whole Blood 201 mg/dL (75-99)
[2020-03-05] MEDS: PANTOPRAZOLE 40 MG/10 ML VIAL IV SCH (07:06)
[2020-03-05] MEDS: MIDODRINE 5 MG TAB PO SCH (07:12)
[2020-03-05] MEDS: INSULIN PUMP MEAL BOLUS 1 UNIT MISC MISCELLANE SCH (07:42)
[2020-03-05 07:49] VITALS: BP 100/52; PULSE 82; RESP 18; TEMP 98.3
[2020-03-05] MEDS: PROPRANOLOL 10 MG TAB PO SCH (08:33)
[2020-03-05 11:03] LABS: Anisocytosis Slight; Basophils % (A) 0 %; Eosinophils # (A) 0.1 k/uL (0-0.7); Eosinophils % (A) 3 %; HCT 25.3 % (34.0-46.0); HGB 7.8 gm/dL (11.4-16.0); Hypochromasia Moderate; Lymphocytes # (A) 0.3 k/uL (1.0-4.8); Lymphocytes % (A) 12 %; MCH 29.3 pg (25.0-35.0); MCV 94.5 fL (80.0-100.0); Mean Platelet Volume 10.7; Monocytes # (A) 0.2 k/uL (0-1.0); Monocytes % (A) 7 %; Neutrophils # (A) 1.9 k/uL (1.3-7.7); Neutrophils % (A) 75 %; RBC 2.68 m/uL (3.80-5.40); RDW 16.3 % (11.5-15.5); WBC 2.5 k/uL (3.8-10.6)
[2020-03-05 11:09] LABS: Platelet Count 30 k/uL (150-450)
[2020-03-05 11:21] LABS: Glucose,Whole Blood 260 mg/dL (75-99)
--- NOTE | 2020-03-05 12:01 | P.DS ---
Providers Date of admission: 03/04/20 17:51 Attending physician: Bogdan Jc Consults: 03/04/20 18:09 Consult Physician Routine Consulting Provider: Carlos A Gutierrez Consult Reason/Comments: anemia, hx of varices Do you want consulting provider notified?: Yes Primary care physician: Dario Underwood [facility] Course: As mentioned in HPI Patient Condition at Discharge: Fair Plan - Discharge Summary Discharge Rx Participant: Yes New Discharge Prescriptions: Continue Montelukast [Singulair] 10 mg PO DAILY INSULIN LISPRO (For Pump) [humaLOG (For Pump)] 0.01 units SQ-PUMP CONTINUOUS Ezetimibe [Zetia] 10 mg PO DAILY Spironolactone [Aldactone] 50 mg PO DAILY Sertraline [Zoloft] 25 mg PO DAILY Acetaminophen [Tylenol] 325 mg PO Q4H PRN PRN Reason: Pain Pantoprazole Sodium [Protonix] 40 mg PO BID #60 tablet. EPINEPHrine [Epipen 2-Sanchez] 0.3 mg IM ONCE PRN PRN Reason: Anaphylaxis Propranolol [Inderal] 10 mg PO BID Lactulose 20 gm PO DAILY Ergocalciferol (Vitamin D2) [Vitamin D2] 50,000 unit PO JOE Midodrine [ProAmatine] 5 mg PO TID Atorvastatin [Lipitor] 40 mg PO HS Vitamin A Acetate [Vitamin A] 1 tab PO DAILY Furosemide [Lasix] 20 mg PO BID Ferrous Sulfate [Iron] 1 tab PO W/BRKFST Discharge Medication List Montelukast [Singulair] 10 mg PO DAILY 07/10/14 [History] Ezetimibe [Zetia] 10 mg PO DAILY 09/04/16 [History] INSULIN LISPRO (For Pump) [humaLOG (For Pump)] 0.01 units SQ-PUMP CONTINUOUS 09/04/16 [History] Spironolactone [Aldactone] 50 mg PO DAILY 10/05/16 [History] Sertraline [Zoloft] 25 mg PO DAILY 01/12/17 [History] Acetaminophen [Tylenol] 325 mg PO Q4H PRN 09/15/17 [History] Pantoprazole Sodium [Protonix] 40 mg PO BID #60 tablet. 11/09/17 [Rx] EPINEPHrine [Epipen 2-Sanchez] 0.3 mg IM ONCE PRN 11/23/17 [History] Propranolol [Inderal] 10 mg PO BID 06/11/18 [History] Lactulose 20 gm PO DAILY 08/22/18 [History] Ergocalciferol (Vitamin D2) [Vitamin D2] 50,000 unit PO JOE 09/17/18 [History] Atorvastatin [Lipitor] 40 mg PO HS 02/03/20 [History] Ferrous Sulfate [Iron] 1 tab PO W/BRKFST 02/03/20 [History] Furosemide [Lasix] 20 mg PO BID 02/03/20 [History] Midodrine [ProAmatine] 5 mg PO TID 02/03/20 [History] Vitamin A Acetate [Vitamin A] 1 tab PO DAILY 02/03/20 [History] Follow up Appointment(s)/Referral(s): Dario Underwood MD [Primary Care Provider] - 03/09/20 10:30 am Patient Instructions/Handouts: Iron Rich Diet (DC), Iron Deficiency Anemia (DC) Discharge Disposition: HOME SELF-CARE
--- NOTE | 2020-03-05 12:01 | P.HPIM ---
History of Present Illness Patient is a pleasant 64-year-old female came in with compensative from short of breath to ER patient is found have lactic acidosis every contributed to her shortness of breath patient denied any fever chills cough. Patient had abdomen paracentesis with removal of 9 L earlier in the day yesterday and patient came to ER shortly after that with compensative shortness of breath all the workup is negative. Except for low hemoglobin of 7.5 patient hemoglobin about a beer a year ago is around 11 because of which ER physician is concerned and wanted to monitor for any further GI bleed. Patient denies any fever chills cough. Patient denied any hematemesis hematochezia, melena, abdominal pain, vaginal bleed. Did complain of Occasional nosebleeds. Patient does have history of nonalcoholic cirrhosis and patient is on liver transplant list. Patient has a scheduled paracentesis once in every 10 days Patient's lactic acidosis improved patient can be resumed once Lasix this was held because of lactic acidosis patient has shortness of breath resolved no evidence of GI bleed hemoglobin remained stable patient will be discharged today. Review of Systems REVIEW OF SYSTEMS: CONSTITUTIONAL: No fever, no malaise, no fatigue. HEENT: No recent visual problems or hearing problems. Denied any sore throat. CARDIOVASCULAR: No chest pain, orthopnea, PND, no palpitations, no syncope. PULMONARY: no cough, no hemoptysis. GASTROINTESTINAL: No diarrhea, no nausea, no vomiting, no abdominal pain. NEUROLOGICAL: No headaches, no weakness, no numbness. HEMATOLOGICAL: Denies any bleeding or petechiae. GENITOURINARY: Denies any burning micturition, frequency, or urgency. MUSCULOSKELETAL/RHEUMATOLOGICAL: Denies any joint pain, swelling, or any muscle pain. ENDOCRINE: Denies any polyuria or polydipsia. The rest of the 14-point review of systems is negative. Past Medical History Past Medical History: Asthma, Coronary Artery Disease (CAD), Cancer, Heart Failure, Diabetes Mellitus, Fibromyalgia, Liver Disease, Skin Disorder Additional Past Medical History / Comment(s): Non-ETOH cirrhosis, ascities, esophageal varices, pancytopenia, thrombycytopenia, anemia, IDDM with insulin pump, several nodules both lungs being monitored, urinary leakage at times and pt states she has diarrhea much of the time, psoriasis, cervical cancer with hysterectomy, pt states 2 blockages in back of heart, awaiting liver transplant and CABG at [facility] in [place]. Patient has been approved but waiting for grandson to get worked up as a donor. Grandson not a match for donor. Patient awaiting another potential match for donor. recently . Both surgeries have been postponed. History of Any Multi-Drug Resistant Organisms: None Reported Past Surgical History: Back Surgery, Cholecystectomy, Hysterectomy, Orthopedic Surgery, Tonsillectomy, Tubal Ligation Additional Past Surgical History / Comment(s): multi large volume Paracentesis, EGD with banded esophageal varices, colonoscopies, bilateral rotator cuff repairs, bilateral breast bx-benign, back surgery in 2015 Past Anesthesia/Blood Transfusion Reactions: Previous Problems w/ Anesthesia Additional Past Anesthesia/Blood Transfusion Reaction / Comment(s): difficulty breathing when coming out of anesthesia; difficulty waking up. Hypotension with general anesthesia. blood transfusions without reaction. Past Psychological History: Depression Additional Psychological History / Comment(s): Pt resides with her daughter. . She uses a walker at times. She drives. She is on Zoloft for depression and states the medication is working well for her. Smoking Status: Former smoker Past Alcohol Use History: None Reported Additional Past Alcohol Use History / Comment(s): smoked >20 years, quit in the . Smoked 1 ppd. Past Drug Use History: None Reported - Past Family History Mother Family Medical History: Cancer, Dementia, Osteoarthritis (OA) Additional Family Medical History / Comment(s): skin cancer. Father Family Medical History: Coronary Artery Disease (CAD) Additional Family Medical History / Comment(s): cabg/pacemaker Brother(s) Family Medical History: Cancer Sister(s) Family Medical History: Cancer Additional Family Medical History / Comment(s): Breast CA. Medications and Allergies Home Medications Medication Instructions Recorded Confirmed Type Montelukast [Singulair] 10 mg PO DAILY 07/10/14 03/04/20 History Ezetimibe [Zetia] 10 mg PO DAILY 09/04/16 03/04/20 History INSULIN LISPRO (For Pump) [humaLOG 0.01 units SQ-PUMP CONTINUOUS 09/04/16 03/04/20 History (For Pump)] Spironolactone [Aldactone] 50 mg PO DAILY 10/05/16 03/04/20 History Sertraline [Zoloft] 25 mg PO DAILY 01/12/17 03/04/20 History Acetaminophen [Tylenol] 325 mg PO Q4H PRN 09/15/17 03/04/20 History Pantoprazole Sodium [Protonix] 40 mg PO BID #60 tablet. 11/09/17 03/04/20 Rx EPINEPHrine [Epipen 2-Sanchez] 0.3 mg IM ONCE PRN 11/23/17 03/04/20 History Propranolol [Inderal] 10 mg PO BID 06/11/18 03/04/20 History Lactulose 20 gm PO DAILY 08/22/18 03/04/20 History Ergocalciferol (Vitamin D2) 50,000 unit PO JOE 09/17/18 03/04/20 History [Vitamin D2] Atorvastatin [Lipitor] 40 mg PO HS 02/03/20 03/04/20 History Ferrous Sulfate [Iron] 1 tab PO W/BRKFST 02/03/20 03/04/20 History Furosemide [Lasix] 20 mg PO BID 02/03/20 03/04/20 History Midodrine [ProAmatine] 5 mg PO TID 02/03/20 03/04/20 History Vitamin A Acetate [Vitamin A] 1 tab PO DAILY 02/03/20 03/04/20 History Allergies Allergy/AdvReac Type Severity Reaction Status Date / Time doxycycline Allergy Rash/Hives Verified 03/04/20 19:12 iodine Allergy Rash/Hives Verified 03/04/20 19:12 Penicillins Allergy Rash/Hives Verified 03/04/20 19:12 shellfish derived Allergy Rash/Hives Verified 03/04/20 19:12 Sulfa (Sulfonamide Allergy Rash/Hives Verified 03/04/20 19:12 Antibiotics) venom-honey bee Allergy Anaphylaxis Verified 03/04/20 19:12 [bee venom (honey bee)] Physical Exam Vitals: Vital Signs Temp Pulse Pulse Resp BP BP Pulse Ox 03/05/20 07:00 98.3 F 82 18 100/52 94 L 03/05/20 03:15 98.8 F 79 17 101/51 94 L 03/04/20 19:48 97.7 F 88 17 134/70 98 03/04/20 18:14 84 16 122/52 100 03/04/20 14:47 97.4 F L 79 20 118/36 98 Intake and Output 03/04/20 03/05/20 03/05/20 22:59 06:59 14:59 Other: Voiding Method Toilet # Voids 1 Weight 70.307 kg PHYSICAL EXAMINATION: GENERAL: The patient is alert and oriented x3, not in any acute distress. Well developed, well nourished. HEENT: Pupils are round and equally reacting to light. EOMI. No scleral icterus. No conjunctival pallor. Normocephalic, atraumatic. No pharyngeal erythema. No thyromegaly. CARDIOVASCULAR: S1 and S2 present. No murmurs, rubs, or gallops. PULMONARY: Chest is clear to auscultation, no wheezing or crackles. ABDOMEN: Soft, distended ascites with shifting dullness,. MUSCULOSKELETAL: No joint swelling or deformity. EXTREMITIES: No cyanosis, clubbing, or pedal edema. NEUROLOGICAL: Gross neurological examination did not reveal any focal deficits. SKIN: No rashes. Results CBC & Chem 7: 03/05/20 10:37 03/04/20 15:25 Labs: Abnormal Lab Results - Last 24 Hours (Table) 03/04/20 03/04/20 03/04/20 Range/Units 15:25 15:25 15:25 WBC 1.4 L* (3.8-10.6) k/uL RBC 2.59 L (3.80-5.40) m/uL Hgb 7.6 L (11.4-16.0) gm/dL Hct 24.5 L (34.0-46.0) % RDW 15.9 H (11.5-15.5) % Plt Count 31 L (150-450) k/uL Neutrophils # 0.9 L (1.3-7.7) k/uL Lymphocytes # 0.2 L (1.0-4.8) k/uL PT 13.1 H (9.0-12.0) sec INR 1.3 H (<1.2) Creatinine 1.09 H (0.52-1.04) mg/dL Glucose 376 H (74-99) mg/dL POC Glucose (mg/dL) (75-99) mg/dL Plasma Lactic Acid Juan (0.7-2.0) mmol/L Total Protein 6.1 L (6.3-8.2) g/dL 03/04/20 03/04/20 03/05/20 Range/Units 15:25 21:16 06:44 WBC (3.8-10.6) k/uL RBC (3.80-5.40) m/uL Hgb (11.4-16.0) gm/dL Hct (34.0-46.0) % RDW (11.5-15.5) % Plt Count (150-450) k/uL Neutrophils # (1.3-7.7) k/uL Lymphocytes # (1.0-4.8) k/uL PT (9.0-12.0) sec INR (<1.2) Creatinine (0.52-1.04) mg/dL Glucose (74-99) mg/dL POC Glucose (mg/dL) 334 H 201 H (75-99) mg/dL Plasma Lactic Acid Juan 2.6 H* (0.7-2.0) mmol/L Total Protein (6.3-8.2) g/dL 03/05/20 03/05/20 Range/Units 10:37 11:19 WBC 2.5 L (3.8-10.6) k/uL RBC 2.68 L (3.80-5.40) m/uL Hgb 7.8 L (11.4-16.0) gm/dL Hct 25.3 L (34.0-46.0) % RDW 16.3 H (11.5-15.5) % Plt Count 30 L (150-450) k/uL Neutrophils # (1.3-7.7) k/uL Lymphocytes # 0.3 L (1.0-4.8) k/uL PT (9.0-12.0) sec INR (<1.2) Creatinine (0.52-1.04) mg/dL Glucose (74-99) mg/dL POC Glucose (mg/dL) 260 H (75-99) mg/dL Plasma Lactic Acid Juan (0.7-2.0) mmol/L Total Protein (6.3-8.2) g/dL Thrombosis Risk Factor Assmnt - Choose All That Apply Any of the Below Risk Factors Present?: Yes Each Factor Represents 1 point: Swollen legs (current) Other Risk Factors: Yes Each Risk Factor Represents 2 Points: Age 61-74 years Other congenital or acquired thrombophilia - If yes, enter type in comment: No Thrombosis Risk Factor Assessment Total Risk Factor Score: 3 Thrombosis Risk Factor Assessment Level: Moderate Risk Assessment and Plan Plan: -Shortness of breath: Seconded lactic is doses which resolved at this time lactic acidosis secondary to liver failure along with the intravascular volume depletion and decreased organ perfusion. This decreased organ perfusion is probably secondary to superimposed factors of diuretics and the removal of 9 L of ascetic fluid. We held of diuretics for 1 night patient can be resumed back on diuretics will be discharged today. -Pancytopenia and chronic anemia secondary to liver disease and cirrhosis and splenic sequestration -Coagulopathy secondary to liver disease and cirrhosis Non- alcoholic cirrhosis with ascites, patient is on liver transplant list is on lactulose Lasix Aldactone all of which will be continued MELD- Na score 12 -Type 2 diabetes mellitus patient is an insulin pump which she will continue -Chronic anemia anemia secondary to liver disease no evidence of acute GI bleed acute blood loss -Fibromyalgia Patient is being discharged today has mentioned above lactic acidosis resolved patient doesn't have any evidence of acute GI bleed or any other acute blood loss
[2020-03-05 14:13] LABS: Hemoglobin A1C 8.1 % (4.0-6.0)
== END 2020-03-05 12:07 | disposition home or self-care (01) ==
LOC: EC 14:36 → 4SSUR 17:51
PROVIDERS: ADMIT Internal Medicine; ATTEND Internal Medicine
DX: D63.8 Anemia in other chronic diseases classified elsewhere (principal); K72.90 Hepatic failure, unspecified without coma; E87.2 Acidosis; D61.818 Other pancytopenia; I25.10 Atherosclerotic heart disease of native coronary artery without angina pectoris; I11.0 Hypertensive heart disease with heart failure; I50.9 Heart failure, unspecified; R06.02 Shortness of breath; D68.4 Acquired coagulation factor deficiency; E86.9 Volume depletion, unspecified; K74.60 Unspecified cirrhosis of liver; Z76.82 Awaiting organ transplant status; E11.9 Type 2 diabetes mellitus without complications; Z79.4 Long term (current) use of insulin; D72.819 Decreased white blood cell count, unspecified; Z96.41 Presence of insulin pump (external) (internal); Z87.891 Personal history of nicotine dependence; M79.7 Fibromyalgia; R18.8 Other ascites; R91.8 Other nonspecific abnormal finding of lung field; R32 Unspecified urinary incontinence; R19.7 Diarrhea, unspecified; L40.9 Psoriasis, unspecified; Z85.41 Personal history of malignant neoplasm of cervix uteri; Z90.710 Acquired absence of both cervix and uterus; Z90.49 Acquired absence of other specified parts of digestive tract; Z98.51 Tubal ligation status; Z98.890 Other specified postprocedural states; F32.9 Major depressive disorder, single episode, unspecified; J45.909 Unspecified asthma, uncomplicated; Z80.8 Family history of malignant neoplasm of other organs or systems; Z82.0 Family history of epilepsy and other diseases of the nervous system; Z82.61 Family history of arthritis; Z82.49 Family history of ischemic heart disease and other diseases of the circulatory system; Z11.59 Encounter for screening for other viral diseases; Z80.3 Family history of malignant neoplasm of breast; Z79.899 Other long term (current) drug therapy; Z88.1 Allergy status to other antibiotic agents; Z91.030 Bee allergy status; Z88.0 Allergy status to penicillin; Z91.013 Allergy to seafood; Z88.2 Allergy status to sulfonamides; Z91.048 Other nonmedicinal substance allergy status
CPT/HCPCS: 96376; 96361; 96374; 99285; 36415; 93005; 86900; 86901; 83880; 80053; 83605; 83735; 84484; 85025 ×2; 85610; 85730; 86850; 83036; 87635; 71046; G0378 ×2; C9113 ×2

== ENCOUNTER → 2020-03-12 | Outpatient (CLI) | payer MEDICARE | END | disposition home or self-care (01) | LOC: LABWHC1 10:41 | PROVIDERS: ATTEND Internal Medicine Gastroenterology | DX: U07.1 COVID-19 (principal) | CPT/HCPCS: 87635 ==

== ENCOUNTER 2020-03-15 08:27 | Day surgery (SDC) | payer MEDICARE ==
[2020-03-15 09:02] LABS: Mean Platelet Volume 11.7
[2020-03-15 09:04] LABS: Platelet Count 46 k/uL (150-450)
[2020-03-15 09:09] LABS: INR 1.2 (<1.2); Prothrombin Time 12.5 sec (9.0-12.0)
[2020-03-15 09:28] VITALS: RESP 16
[2020-03-15] MEDS: ALBUMIN HUMAN 25% 50 ML in EMPTY BAG 1 BAG IVPB SCH ×4 (09:52→11:00)
[2020-03-15 10:41] VITALS: TEMP 97.3
[2020-03-15 12:04] VITALS: BP 111/59; PULSE 74
--- NOTE | 2020-03-15 15:02 | US ---
EXAMINATION TYPE: US paracentesis abd w/image DATE OF EXAM: 03/15/2020 COMPARISON: NONE HISTORY: Ascites. PROCEDURE: Maximal barrier technique was utilized. The skin overlying a suitable pocket of fluid was localized with ultrasound and the overlying skin was prepped and draped. Ultrasound was utilized with sterile technique. Lidocaine was used for local anesthesia and a skin jose made with a scalpel. Catheter was advanced under direct ultrasound guidance into a suitable pocket of fluid and approximately 8.9 liter s of serous fluid were removed. Catheter was withdrawn and hemostasis achieved. There is no immedia te complication; the patient is discharged in stable condition. IMPRESSION: STATUS POST ULTRASOUND GUIDED PARACENTESIS FOR PALLIATION OF ASCITES. THIS PROCEDURE WA S PERFORMED BY THE UNDERSIGNED.
== END 2020-03-15 11:55 | disposition home or self-care (01) ==
LOC: RADPROMAIN 08:27
PROVIDERS: ATTEND Internal Medicine Gastroenterology
DX: R18.8 Other ascites (principal)
CPT/HCPCS: 82565; 82947; 85049; 85610; 36415; 49083; P9035; P9047

== ENCOUNTER → 2020-03-23 | Outpatient (CLI) | payer MEDICARE | END | disposition home or self-care (01) | LOC: LABWHC1 09:33 | PROVIDERS: ATTEND Internal Medicine Gastroenterology | DX: U07.1 COVID-19 (principal) | CPT/HCPCS: 87635 ==

== ENCOUNTER 2020-03-25 08:27 | Day surgery (SDC) | payer MEDICARE ==
[2020-03-25 09:04] LABS: Mean Platelet Volume 13.2
[2020-03-25 09:05] LABS: Platelet Count 37 k/uL (150-450)
[2020-03-25 09:10] LABS: INR 1.3 (<1.2); Prothrombin Time 12.8 sec (9.0-12.0)
[2020-03-25] MEDS: ALBUMIN HUMAN 25% 50 ML in EMPTY BAG 1 BAG IVPB SCH ×4 (10:13→11:37)
[2020-03-25 11:48] VITALS: RESP 20
[2020-03-25 11:51] VITALS: TEMP 98.1
[2020-03-25 12:18] VITALS: BP 115/56; PULSE 89
--- NOTE | 2020-03-25 13:51 | US ---
EXAMINATION TYPE: US paracentesis abd w/image DATE OF EXAM: 03/25/2020 COMPARISON: NONE HISTORY: Ascites. PROCEDURE: Maximal barrier technique was utilized. The skin overlying a suitable pocket of fluid was localized with ultrasound and the overlying skin was prepped and draped. Ultrasound was utilized with sterile technique. Lidocaine was used for local anesthesia and a skin jose made with a scalpel. Catheter was advanced under direct ultrasound guidance into a suitable pocket of fluid and approximately 9.4 liter s of serous fluid were removed. Catheter was withdrawn and hemostasis achieved. There is no immedia te complication; the patient is discharged in stable condition. IMPRESSION: STATUS POST ULTRASOUND GUIDED PARACENTESIS FOR PALLIATION OF ASCITES. THIS PROCEDURE WA S PERFORMED BY THE UNDERSIGNED.
== END 2020-03-25 12:50 | disposition home or self-care (01) ==
LOC: RADPROMAIN 08:27
PROVIDERS: ATTEND Internal Medicine Gastroenterology
DX: R18.8 Other ascites (principal)
CPT/HCPCS: 82565; 85049; 85610; 49083; P9035; P9047

== ENCOUNTER → 2020-04-02 | Outpatient (CLI) | payer MEDICARE | END | disposition home or self-care (01) | LOC: LABWHC1 08:37 | PROVIDERS: ATTEND Internal Medicine Gastroenterology | DX: U07.1 COVID-19 (principal) ==

== ENCOUNTER 2020-04-05 08:27 | Day surgery (SDC) | payer MEDICARE ==
[2020-04-05 09:04] LABS: Platelet Count 45 k/uL (150-450)
[2020-04-05 09:11] LABS: INR 1.2 (<1.2)
[2020-04-05 09:12] LABS: Prothrombin Time 11.9 sec (9.0-12.0)
[2020-04-05] MEDS: ALBUMIN HUMAN 25% 50 ML in EMPTY BAG 1 BAG IVPB SCH ×4 (09:57→10:54)
[2020-04-05 10:54] VITALS: TEMP 97.6
[2020-04-05 12:21] VITALS: BP 107/56; PULSE 84; RESP 18
--- NOTE | 2020-04-05 12:41 | US ---
Ultrasound-guided paracentesis. DATE OF EXAM: 04/05/2020 CLINICAL HISTORY: Ascites The procedure was discussed with the patient. The risks, complications, benefits, and alternatives we re discussed and any questions were answered. Informed consent was obtained. The patient was placed s upine on the ultrasound table and prepped and draped in the usual sterile fashion. All elements of maximal barrier technique were utilized. Under ultrasound guidance, access into the right lower quadrant was obtained, via the paracentesis catheter system and direct ultrasound guidanc e. Approximately 9 liters of straw-colored fluid was removed. The patient was stable throughout the proc edure and remained stable upon discharge from Department of Radiology. IMPRESSION: Successful paracentesis under ultrasound guidance.
== END 2020-04-05 12:05 | disposition home or self-care (01) ==
LOC: RADPROMAIN 08:27
PROVIDERS: ATTEND Internal Medicine Gastroenterology
DX: R18.8 Other ascites (principal)
CPT/HCPCS: 82565; 82947; 85049; 85610; 36415; 49083; P9035; P9047

== ENCOUNTER 2020-04-15 08:24 | Day surgery (SDC) | payer MEDICARE ==
[2020-04-15 09:22] LABS: Mean Platelet Volume 10.5
[2020-04-15 09:23] LABS: Platelet Count 50 k/uL (150-450)
[2020-04-15] MEDS: ALBUMIN HUMAN 25% 50 ML in EMPTY BAG 1 BAG IVPB SCH ×4 (09:24→11:35)
[2020-04-15 09:27] LABS: INR 1.2 (<1.2)
[2020-04-15 09:31] VITALS: RESP 18; TEMP 97.8
[2020-04-15 13:15] VITALS: BP 102/55; PULSE 86
--- NOTE | 2020-04-15 14:47 | US ---
EXAMINATION TYPE: US paracentesis abd w/image DATE OF EXAM: 04/15/2020 COMPARISON: NONE HISTORY: Ascites. PROCEDURE: Maximal barrier technique was utilized. The skin overlying a suitable pocket of fluid was localized with ultrasound and the overlying skin was prepped and draped. Ultrasound was utilized with sterile technique. Lidocaine was used for local anesthesia and a skin jose made with a scalpel. Catheter was advanced under direct ultrasound guidance into a suitable pocket of fluid and approximately 9.3 liter s of serous fluid were removed. Catheter was withdrawn and hemostasis achieved. There is no immedia te complication; the patient is discharged in stable condition. IMPRESSION: STATUS POST ULTRASOUND GUIDED PARACENTESIS FOR PALLIATION OF ASCITES. THIS PROCEDURE WA S PERFORMED BY THE UNDERSIGNED.
== END 2020-04-15 12:50 | disposition home or self-care (01) ==
LOC: RADPROMAIN 08:24
PROVIDERS: ATTEND Internal Medicine Gastroenterology
DX: R18.8 Other ascites (principal); E78.5 Hyperlipidemia, unspecified
CPT/HCPCS: 82565; 82947; 85049; 85610; 36415; 49083; P9047

== ENCOUNTER 2020-04-26 09:01 | Day surgery (SDC) | payer MEDICARE ==
[2020-04-26 10:34] VITALS: RESP 18
[2020-04-26] MEDS: ALBUMIN HUMAN 25% 50 ML in EMPTY BAG 1 BAG IVPB SCH ×4 (10:37→11:10)
[2020-04-26 10:44] VITALS: PULSE 77
[2020-04-26 11:15] LABS: Glucose,Whole Blood 162 mg/dL (75-99)
[2020-04-26 11:35] VITALS: BP 113/56; TEMP 97.7
--- NOTE | 2020-04-26 12:53 | US ---
Ultrasound-guided paracentesis. DATE OF EXAM: 04/26/2020 CLINICAL HISTORY: Ascites The procedure was discussed with the patient. The risks, complications, benefits, and alternatives we re discussed and any questions were answered. Informed consent was obtained. The patient was placed s upine on the ultrasound table and prepped and draped in the usual sterile fashion. All elements of maximal barrier technique were utilized. Under ultrasound guidance, access into the left lower quadrant was obtained, via the paracentesis catheter system and direct ultrasound guidance . Approximately 9.2 liters of straw-colored fluid was removed. The patient was stable throughout the pr ocedure and remained stable upon discharge from Department of Radiology. IMPRESSION: Successful paracentesis under ultrasound guidance.
== END 2020-04-26 11:55 | disposition home or self-care (01) ==
LOC: RADPROMAIN 09:01
PROVIDERS: ATTEND Internal Medicine Gastroenterology
DX: R18.8 Other ascites (principal)
CPT/HCPCS: 36415; 49083; P9035; P9047

== ENCOUNTER → 2020-04-26 | Outpatient (CLI) | payer MEDICARE ==
[2020-04-26 08:55] LABS: Basophils % (A) 1 %; Eosinophils # (A) 0.1 k/uL (0-0.7); Eosinophils % (A) 5 %; HCT 29.4 % (34.0-46.0); HGB 8.9 gm/dL (11.4-16.0); Hypochromasia Moderate; Lymphocytes # (A) 0.3 k/uL (1.0-4.8); Lymphocytes % (A) 11 %; MCH 28.9 pg (25.0-35.0); MCHC 30.2 g/dL (31.0-37.0); MCV 95.5 fL (80.0-100.0); Mean Platelet Volume 11.5; Monocytes # (A) 0.2 k/uL (0-1.0); Monocytes % (A) 8 %; Neutrophils # (A) 1.8 k/uL (1.3-7.7); Neutrophils % (A) 73 %; RBC 3.08 m/uL (3.80-5.40); RDW 15.9 % (11.5-15.5); WBC 2.4 k/uL (3.8-10.6)
[2020-04-26 09:04] LABS: INR 1.2 (<1.2); Prothrombin Time 11.8 sec (9.0-12.0)
[2020-04-26 09:16] LABS: ALT 29 U/L (4-34); AST 41 U/L (14-36); African American GFR (CKD) 56 (>60 ml/min/1.73 sqM); Albumin 3.3 g/dL (3.5-5.0); Albumin/Globulin Ratio 1.1; Alkaline Phosphatase 145 U/L (38-126); Anion Gap 7 mmol/L; Blood Urea Nitrogen 22 mg/dL (7-17); Calcium 8.6 mg/dL (8.4-10.2); Carbon Dioxide 18 mmol/L (22-30); Chloride 109 mmol/L (98-107); Globulin 2.9 g/dL; Glucose 163 mg/dL (74-99); Non-African American GFR(CKD) 49 (>60 ml/min/1.73 sqM); Potassium 4.9 mmol/L (3.5-5.1); Sodium 134 mmol/L (137-145); Total Protein 6.2 g/dL (6.3-8.2)
[2020-04-26 09:20] LABS: Large Platelets Present; Platelet Count 42 k/uL (150-450)
[2020-04-26 09:21] LABS: Poikilocytosis (M) Present
== END | disposition home or self-care (01) ==
LOC: LABWHC1 07:40
PROVIDERS: ATTEND Internal Medicine Gastroenterology
DX: K74.60 Unspecified cirrhosis of liver (principal)
CPT/HCPCS: 36415; 80053; 82105; 85025; 85610

== ENCOUNTER → 2020-04-26 | Outpatient (CLI) | payer MEDICARE ==
--- NOTE | 2020-04-26 09:55 | US ---
EXAMINATION TYPE: US liver doppler DATE OF EXAM: 04/26/2020 COMPARISON: None CLINICAL HISTORY: 64-year-old female K74.60 CIRRHOSIS, R18.8 ASCITES. Non alcoholic cirrhosis, awaiti ng liver transplant; gallbladder removed TECHNIQUE: Multiple sonographic images of the right upper quadrant are obtained. Color Doppler and sp ectral waveform analysis of the hepatic vasculature. FINDINGS: EXAM MEASUREMENTS: Liver Length: 11.9 cm Gallbladder: surgically absent CBD: 0.3 cm Right Kidney: 8.7 x 4.4 x 3.9 cm RUQ ABDOMINAL ULTRASOUND Pancreas: Suboptimally visualized due to shadowing from bowel gas. Liver: Small size with nodular contour and heterogeneous appearance. No focal lesion clearly identifi ed. Hepatic veins not seen Gallbladder: surgically removed Evidence for sonographic Nance's sign: no CBD: wnl Right Kidney: No hydronephrosis. Ascites noted? Yes, moderate in the right upper quadrant. RLQ = 8.2cm A/P and LLQ = 13.5cm A/P LIVER DOPPLER ULTRASOUND Portal vein: 18.0 mm A/P Main Portal Vein diameter: 12.2 mm MPV Flow direction: Hepatopetal Color flow patency seen within the main portal vein: Yes Main portal vein shows a monophasic waveform: Yes Color flow patency seen within the right portal vein: Yes Right portal vein shows a monophasic waveform: Yes Color flow patency seen within the left portal vein: Yes Left portal vein shows a monophasic waveform: Yes Velocity in the main portal vein is lower limits of normal at up to 20 cm/s. Hepatic Artery: wnl Resistive Index: 0.82 upper limits of normal Acceleration Time: 0.02 seconds and wnl as is less than 0.08second. IVC/Hepatic Veins: color flow seen in IVC with flow to heart Color flow patency seen within the IVC: Yes IVC shows a triphasic waveform: Yes Color flow patency not seen within the hepatic veins Splenic Vein: dilated as is greater than10.0mm Splenic vein diameter: 18.2 mm Color flow patency seen within the splenic vein: Yes IMPRESSION: 1. Small, cirrhotic liver. No definite focal liver lesion. 2. Hepatic vein flow not identified by ultrasound, possibly due to small vessels and very sluggish fl ow. Consider liver protocol CT or MRI to better assess if indicated. 3. Patent portal venous system with hepatopedal flow. Velocities are at the lower limits of normal an d there is large caliber to the splenic vein. Along with the moderate abdominal ascites, findings sug gest portal venous hypertension. 4. Status post cholecystectomy. No biliary ductal dilatation.
== END | disposition home or self-care (01) ==
LOC: RADUSWWP 08:06
PROVIDERS: ATTEND Internal Medicine Gastroenterology
DX: K74.60 Unspecified cirrhosis of liver (principal); R18.8 Other ascites; Z90.49 Acquired absence of other specified parts of digestive tract
CPT/HCPCS: 76705; 93976

== ENCOUNTER 2020-04-28 07:09 | Day surgery (SDC) | payer MEDICARE ==
[2020-04-26 15:00] VITALS: BMI 26.5
[~2020-04-28 07:09] MED LIST changes: -LIDOCAINE 1% 20 ML VIAL (10MG/ML) FOR IV START INTRADERMA PRN
[2020-04-28 07:35] VITALS: TEMP 97.9
[2020-04-28 07:52] LABS: Glucose,Whole Blood 172 mg/dL (75-99)
[2020-04-28] MEDS ORDERED: PROPOFOL 10 MG/ML 20 ML VIAL IV ONE (07:52)
[2020-04-28] MEDS ORDERED: LIDOCAINE 1% INJ 10MG/ML (20 ML MDV) ONE (07:52)
--- NOTE | 2020-04-28 08:05 | P.PCN ---
Date of Procedure: 04/28/20 Procedure(s) Performed: BRIEF HISTORY: Patient is a 64-year-old, pleasant, white female scheduled for an upper endoscopy as a part of follow-up of esophageal varices. History of nonalcoholic cirrhosis of the liver and presently being evaluated for liver transplantation.. PROCEDURE PERFORMED: Esophagogastroduodenoscopy with variceal ligation. PREOPERATIVE DIAGNOSIS: Follow-up esophageal varices. IV sedation per anesthesia. PROCEDURE: After informed consent was obtained, the patient was brought into the endoscopy unit. IV sedation was administered by Anesthesia under continuous monitoring. Initially the Olympus GIF-140 video endoscope was inserted into the mouth. Esophagus intubated without any difficulty. It was gradually advanced into the stomach and duodenum and carefully examined. The bulb and the second part of the duodenum appeared normal. The scope at this time was withdrawn to the stomach, adequately insufflated with air, and upon careful examination, mucosa of the antrum, appeared normal. Mucosa of the body, cardia and the fundus had changes consistent with severe: Hypertensive gastropathy. No gastric varices seen.. The scope was then withdrawn into the esophagus. The GE junction was located at 39 cm from the incisors. There were small esophageal varices noted in the mid and distal esophagus with scarring from previous variceal ligation. The rest of the esophagus appeared normal. At this time the scope was removed and esophageal achalasia ligation equipment was introduced onto the tip of the scope and esophagus reintubated without any difficulty. It was advanced into the distal esophagus. Using suction total of 5 bands were deployed and the patient tolerated the procedure IMPRESSION: 1. Small mid/distal esophageal varices status post variceal ligation as described. 2. Severe portal hypertensive gastropathy. RECOMMENDATIONS: The findings of this examination were discussed with the patient as well as a family. She will remain on a soft diet today. We'll plan a repeat Upper endoscopy in 6 months.
[2020-04-28 08:26] VITALS: RESP 16
[2020-04-28 08:38] VITALS: BP 115/57; PULSE 82
[2020-04-28 08:39] LABS: Glucose,Whole Blood 191 mg/dL (75-99)
== END 2020-04-28 09:09 | disposition home or self-care (01) ==
LOC: ORWHC2ENDO 07:09
PROVIDERS: ATTEND Internal Medicine Gastroenterology
DX: I85.10 Secondary esophageal varices without bleeding (principal); K74.60 Unspecified cirrhosis of liver; K76.6 Portal hypertension; K31.89 Other diseases of stomach and duodenum; K21.9 Gastro-esophageal reflux disease without esophagitis; I10 Essential (primary) hypertension; I25.10 Atherosclerotic heart disease of native coronary artery without angina pectoris; E78.5 Hyperlipidemia, unspecified; E11.9 Type 2 diabetes mellitus without complications; F32.9 Major depressive disorder, single episode, unspecified; Z88.2 Allergy status to sulfonamides; Z88.0 Allergy status to penicillin; Z79.899 Other long term (current) drug therapy; Z91.041 Radiographic dye allergy status; Z79.4 Long term (current) use of insulin; Z90.710 Acquired absence of both cervix and uterus; Z90.49 Acquired absence of other specified parts of digestive tract; Z90.89 Acquired absence of other organs; Z91.013 Allergy to seafood
CPT/HCPCS: 43244; J2001; J2704; 43239

== ENCOUNTER 2020-05-06 11:49 | Day surgery (SDC) | payer MEDICARE ==
[2020-05-06 12:36] LABS: Mean Platelet Volume 10.7
[2020-05-06 12:40] LABS: INR 1.2 (<1.2)
[2020-05-06 12:41] LABS: Prothrombin Time 11.9 sec (9.0-12.0)
[2020-05-06 12:53] LABS: Platelet Count 47 k/uL (150-450)
[2020-05-06] MEDS: ALBUMIN HUMAN 25% 50 ML in EMPTY BAG 1 BAG IVPB SCH ×4 (14:00→14:51)
--- NOTE | 2020-05-06 16:01 | US ---
EXAMINATION TYPE: US paracentesis abd w/image DATE OF EXAM: 05/06/2020 COMPARISON: NONE HISTORY: Ascites. PROCEDURE: Maximal barrier technique was utilized. The skin overlying a suitable pocket of fluid was localized with ultrasound and the overlying skin was prepped and draped. Ultrasound was utilized with sterile technique. Lidocaine was used for local anesthesia and a skin jose made with a scalpel. Catheter was advanced under direct ultrasound guidance into a suitable pocket of fluid and approximately 10.3 lite rs of serous fluid were removed. Catheter was withdrawn and hemostasis achieved. There is no immedi ate complication; the patient is discharged in stable condition. IMPRESSION: STATUS POST ULTRASOUND GUIDED PARACENTESIS FOR PALLIATION OF ASCITES. THIS PROCEDURE WA S PERFORMED BY THE UNDERSIGNED.
[2020-05-07 04:03] VITALS: BP 91/51; PULSE 85; RESP 18; TEMP 97.5
== END 2020-05-06 15:35 | disposition home or self-care (01) ==
LOC: RADPROMAIN 11:49
PROVIDERS: ATTEND Internal Medicine Gastroenterology
DX: R18.8 Other ascites (principal)
CPT/HCPCS: 82565; 85049; 85610; 36415; 49083; P9035; P9047

== ENCOUNTER 2020-05-13 08:37 | Day surgery (SDC) | payer MEDICARE ==
[2020-05-13 09:25] LABS: Mean Platelet Volume 10.9
[2020-05-13 09:28] LABS: INR 1.2 (<1.2); Prothrombin Time 12.4 sec (9.0-12.0)
[2020-05-13 09:29] LABS: Platelet Count 43 k/uL (150-450)
[2020-05-13 10:20] VITALS: RESP 16
[2020-05-13] MEDS: ALBUMIN HUMAN 25% 50 ML in EMPTY BAG 1 BAG IVPB SCH ×4 (10:45→13:21)
[2020-05-13 11:34] VITALS: TEMP 98
[2020-05-13 13:25] VITALS: BP 119/61; PULSE 78
--- NOTE | 2020-05-13 15:59 | US ---
EXAMINATION TYPE: US paracentesis abd w/image DATE OF EXAM: 05/13/2020 CLINICAL HISTORY: Ascites The procedure was discussed with the patient. The risks, complications, benefits, and alternatives we re discussed and any questions were answered. Informed consent was obtained. The patient was placed s upine on the ultrasound table and prepped and draped in the usual sterile fashion. All elements of maximal barrier technique were utilized. Under ultrasound guidance, access into the left lower quadrant was obtained with a 5 Setsw[place] one-step centesis catheter. Approximately 6.25 liters of clear serous fluid was removed. Catheter was removed and sterile bandage was applied. The patient was stable throughout the procedure and remained stable upon discharge from Department of Radiology. IMPRESSION: Successful ultrasound-guided paracentesis, with removal of 6.25 liters of clear serous fluid.
== END 2020-05-13 12:15 | disposition home or self-care (01) ==
LOC: RADPROMAIN 08:37
PROVIDERS: ATTEND Internal Medicine Gastroenterology
DX: R18.8 Other ascites (principal)
CPT/HCPCS: 82565; 82947; 85049; 85610; 36415; 49083; P9035; P9047

== ENCOUNTER 2020-05-20 08:35 | Day surgery (SDC) | payer MEDICARE ==
[2020-05-20 09:09] LABS: Mean Platelet Volume 11.5
[2020-05-20 09:14] LABS: Platelet Count 46 k/uL (150-450)
[2020-05-20 09:16] LABS: INR 1.2 (<1.2); Prothrombin Time 11.9 sec (9.0-12.0)
[2020-05-20 09:20] VITALS: RESP 16
[2020-05-20] MEDS: ALBUMIN HUMAN 25% 50 ML in EMPTY BAG 1 BAG IVPB SCH ×4 (10:34→11:15)
[2020-05-20 11:34] VITALS: BP 109/53; PULSE 77; TEMP 97.9
--- NOTE | 2020-05-20 15:26 | US ---
EXAMINATION TYPE: US paracentesis abd w/image DATE OF EXAM: 05/20/2020 CLINICAL HISTORY: Ascites The procedure was discussed with the patient. The risks, complications, benefits, and alternatives we re discussed and any questions were answered. Informed consent was obtained. The patient was placed s upine on the ultrasound table and prepped and draped in the usual sterile fashion. All elements of maximal barrier technique were utilized. Under ultrasound guidance, access into the left lower quadrant was obtained with a 5 Spanish one-step centesis catheter. Approximately 8.05 liters of turbid serous fluid was removed. Catheter was removed and sterile bandag e was applied. The patient was stable throughout the procedure and remained stable upon discharge fro Department of Radiology. IMPRESSION: Successful ultrasound-guided paracentesis, with removal of 8.05 liters of serous fluid.
== END 2020-05-20 11:45 | disposition home or self-care (01) ==
LOC: RADPROMAIN 08:35
PROVIDERS: ATTEND Internal Medicine Gastroenterology
DX: R18.8 Other ascites (principal)
CPT/HCPCS: 82565; 82947; 85049; 85610; 36415; 49083; P9035; P9047

== ENCOUNTER 2020-05-27 08:30 | Day surgery (SDC) | payer MEDICARE ==
[2020-05-27 08:55] LABS: Mean Platelet Volume 11.6
[2020-05-27 09:01] LABS: INR 1.2 (<1.2); Prothrombin Time 12.1 sec (9.0-12.0)
[2020-05-27 09:02] LABS: Platelet Count 38 k/uL (150-450)
[2020-05-27] MEDS: ALBUMIN HUMAN 25% 50 ML in EMPTY BAG 1 BAG IVPB SCH ×4 (10:11→10:57)
[2020-05-27 10:48] LABS: Glucose,Whole Blood 228 mg/dL (75-99)
[2020-05-27 10:52] VITALS: TEMP 97.9
[2020-05-27 11:25] VITALS: PULSE 78; RESP 14
[2020-05-27 12:02] VITALS: BP 104/59
--- NOTE | 2020-05-27 15:05 | US ---
EXAMINATION TYPE: US paracentesis abd w/image DATE OF EXAM: 05/27/2020 CLINICAL HISTORY: Ascites Preliminary preprocedure imaging demonstrated a large volume ascites bilaterally. The procedure was discussed with the patient. The risks, complications, benefits, and alternatives we re discussed and any questions were answered. Informed consent was obtained. The patient was placed s upine on the ultrasound table and prepped and draped in the usual sterile fashion. All elements of maximal barrier technique were utilized. Under ultrasound guidance, access into the left lower quadrant was obtained with a 5 [place]i one-step centesis catheter. Approximately 8.9 liters of clear serosanguineous fluid was removed. Catheter was removed and sterile bandage was applied. The patient was stable throughout the procedure and remained stable upon discha rge from Department of Radiology. IMPRESSION: Successful ultrasound-guided therapeutic paracentesis, with removal of 8.9 liters of clear serosangui neous fluid.
== END 2020-05-27 11:50 | disposition home or self-care (01) ==
LOC: RADPROMAIN 08:30
PROVIDERS: ATTEND Internal Medicine Gastroenterology
DX: R18.8 Other ascites (principal)
CPT/HCPCS: 82565; 85049; 85610; 36415; 49083; P9035; P9047

== ENCOUNTER 2020-06-03 08:28 | Day surgery (SDC) | payer MEDICARE ==
[2020-06-03 09:21] LABS: INR 1.2 (<1.2)
[2020-06-03 09:22] LABS: Mean Platelet Volume 11.1; Prothrombin Time 12.2 sec (9.0-12.0)
[2020-06-03 09:24] LABS: Platelet Count 47 k/uL (150-450)
[2020-06-03] MEDS: ALBUMIN HUMAN 25% 50 ML in EMPTY BAG 1 BAG IVPB SCH ×4 (10:31→11:32)
[2020-06-03 10:39] VITALS: RESP 16
[2020-06-03 11:41] VITALS: TEMP 98.1
[2020-06-03 12:36] VITALS: BP 112/59; PULSE 84
--- NOTE | 2020-06-03 13:00 | US ---
Ultrasound-guided paracentesis. DATE OF EXAM: 06/03/2020 CLINICAL HISTORY: Ascites The procedure was discussed with the patient. The risks, complications, benefits, and alternatives we re discussed and any questions were answered. Informed consent was obtained. The patient was placed s upine on the ultrasound table and prepped and draped in the usual sterile fashion. All elements of maximal barrier technique were utilized. Under ultrasound guidance, access into the right lower quadrant was obtained, via the paracentesis catheter system and direct ultrasound guidanc e. Approximately 7.35 liters of straw-colored fluid was removed. The patient was stable throughout the p rocedure and remained stable upon discharge from Department of Radiology. IMPRESSION: Successful paracentesis under ultrasound guidance.
[2020-06-07 09:47] LABS: Bilirubin, Delta 0.3 mg/dL (0.0-0.2); Bilirubin,Unconjugated 0.4 mg/dL (0.0-1.1); Calcium 8.2 mg/dL (8.4-10.2); Potassium 4.9 mmol/L (3.5-5.1); Total Bilirubin 0.7 mg/dL (0.2-1.3); Total Protein 5.4 g/dL (6.3-8.2)
== END 2020-06-03 12:20 | disposition home or self-care (01) ==
LOC: RADPROMAIN 08:28
PROVIDERS: ATTEND Internal Medicine Gastroenterology
DX: R18.8 Other ascites (principal)
CPT/HCPCS: 80061; 82565; 82947; 85049; 85610; 36415; 49083; P9035; P9047; 80048; 80076

== ENCOUNTER 2020-06-10 08:37 | Day surgery (SDC) | payer MEDICARE ==
[2020-06-10 09:01] LABS: Mean Platelet Volume 11.8
[2020-06-10 09:08] LABS: Platelet Count 48 k/uL (150-450)
[2020-06-10 09:24] LABS: INR 1.1 (<1.2); Prothrombin Time 11.4 sec (9.0-12.0)
[2020-06-10] MEDS: ALBUMIN HUMAN 25% 50 ML in EMPTY BAG 1 BAG IVPB SCH ×4 (11:01→11:45)
[2020-06-10 11:32] VITALS: RESP 18
[2020-06-10 11:40] VITALS: PULSE 88; TEMP 97.9
[2020-06-10 11:55] VITALS: BP 108/55
--- NOTE | 2020-06-11 08:35 | US ---
EXAMINATION TYPE: US paracentesis abd w/image DATE OF EXAM: 06/10/2020 CLINICAL HISTORY: Ascites The procedure was discussed with the patient. The risks, complications, benefits, and alternatives we re discussed and any questions were answered. Informed consent was obtained. The patient was placed s upine on the ultrasound table and prepped and draped in the usual sterile fashion. All elements of maximal barrier technique were utilized. Under ultrasound guidance, access into the right lower quadrant was obtained with a 5 Y[place]ut one-step centesis catheter. Approximately 7.1 liters of clear serous fluid was removed. Catheter was removed and sterile bandage was applied. The patient was stable throughout the procedure and remained stable upon discharge from Department of Radiology. IMPRESSION: Successful ultrasound-guided therapeutic paracentesis, with removal of 7.1 liters of clear serous flu id.
== END 2020-06-10 12:20 | disposition home or self-care (01) ==
LOC: RADPROMAIN 08:37
PROVIDERS: ATTEND Internal Medicine Gastroenterology
DX: R18.8 Other ascites (principal)
CPT/HCPCS: 82565; 82947; 85049; 85610; 36415; 49083; P9035; P9047

== ENCOUNTER 2020-06-17 08:38 | Day surgery (SDC) | payer MEDICARE ==
[2020-06-17 09:06] LABS: Mean Platelet Volume 11.5
[2020-06-17 09:09] LABS: Platelet Count 44 k/uL (150-450)
[2020-06-17 09:31] LABS: INR 1.2 (<1.2); Prothrombin Time 11.7 sec (9.0-12.0)
[2020-06-17] MEDS: ALBUMIN HUMAN 25% 50 ML in EMPTY BAG 1 BAG IVPB SCH ×4 (10:50→11:34)
[2020-06-17 11:07] VITALS: RESP 16; TEMP 97.4
[2020-06-17 11:37] VITALS: BP 104/62; PULSE 84
--- NOTE | 2020-06-17 23:07 | US ---
EXAMINATION TYPE: US paracentesis abd w/image DATE OF EXAM: 06/17/2020 CLINICAL HISTORY: Ascites Preprocedure preliminary imaging demonstrates large volume ascites. The procedure was discussed with the patient. The risks, complications, benefits, and alternatives we re discussed and any questions were answered. Informed consent was obtained. The patient was placed s upine on the ultrasound table and prepped and draped in the usual sterile fashion. All elements of maximal barrier technique were utilized. Under ultrasound guidance, access into the right upper quadrant was obtained with a 5 [place] one-step centesis catheter. Approximately 7.9 liters of clear serous fluid was removed. Catheter was removed and sterile bandage was applied. The patient was stable throughout the procedure and remained stable upon discharge from Department of Radiology. IMPRESSION: Successful ultrasound-guided paracentesis, with removal of 1.9 liters of clear serous fluid.
== END 2020-06-17 12:02 | disposition home or self-care (01) ==
LOC: RADPROMAIN 08:38
PROVIDERS: ATTEND Internal Medicine Gastroenterology
DX: R18.8 Other ascites (principal)
CPT/HCPCS: 82565; 82947; 85049; 85610; 36415; 49083; P9035; P9047

== ENCOUNTER 2020-07-01 08:08 | Day surgery (SDC) | payer MEDICARE ==
[2020-07-01 09:01] LABS: Mean Platelet Volume 10.9
[2020-07-01 09:09] LABS: INR 1.2 (<1.2); Platelet Count 48 k/uL (150-450); Prothrombin Time 11.8 sec (9.0-12.0)
[2020-07-01] MEDS: ALBUMIN HUMAN 25% 50 ML in EMPTY BAG 1 BAG IVPB SCH ×4 (10:05→10:52)
[2020-07-01 10:09] VITALS: RESP 18; TEMP 97.2
[2020-07-01 11:50] VITALS: BP 110/68; PULSE 77
--- NOTE | 2020-07-01 15:29 | US ---
EXAMINATION TYPE: US paracentesis abd w/image DATE OF EXAM: 07/01/2020 COMPARISON: NONE HISTORY: Ascites. PROCEDURE: Maximal barrier technique was utilized. The skin overlying a suitable pocket of fluid was localized with ultrasound and the overlying skin was prepped and draped. Ultrasound was utilized with sterile technique. Lidocaine was used for local anesthesia and a skin jose made with a scalpel. Catheter was advanced under direct ultrasound guidance into a suitable pocket of fluid and approximately 6.6 liter s of serous fluid were removed. Catheter was withdrawn and hemostasis achieved. There is no immedia te complication; the patient is discharged in stable condition. IMPRESSION: STATUS POST ULTRASOUND GUIDED PARACENTESIS FOR PALLIATION OF ASCITES. THIS PROCEDURE WA S PERFORMED BY THE UNDERSIGNED.
== END 2020-07-01 12:20 | disposition home or self-care (01) ==
LOC: RADPROMAIN 08:08
PROVIDERS: ATTEND Internal Medicine Gastroenterology
DX: R18.8 Other ascites (principal)
CPT/HCPCS: 82565; 82947; 85049; 85610; 36415; 49083; P9047

== ENCOUNTER 2020-07-08 08:11 | Day surgery (SDC) | payer MEDICARE ==
[2020-07-08 08:48] LABS: Mean Platelet Volume 11.7
[2020-07-08 08:57] LABS: INR 1.1 (<1.2); Prothrombin Time 11.3 sec (9.0-12.0)
[2020-07-08 08:58] LABS: Platelet Count 44 k/uL (150-450)
[2020-07-08 10:08] VITALS: RESP 16
[2020-07-08 10:34] VITALS: TEMP 98
[2020-07-08] MEDS: ALBUMIN HUMAN 25% 50 ML in EMPTY BAG 1 BAG IVPB SCH ×4 (10:37→11:24)
[2020-07-08 11:15] VITALS: BP 98/49; PULSE 90
--- NOTE | 2020-07-08 12:23 | US ---
Ultrasound-guided paracentesis. DATE OF EXAM: 07/08/2020 CLINICAL HISTORY: Ascites The procedure was discussed with the patient. The risks, complications, benefits, and alternatives we re discussed and any questions were answered. Informed consent was obtained. The patient was placed s upine on the ultrasound table and prepped and draped in the usual sterile fashion. All elements of maximal barrier technique were utilized. Under ultrasound guidance, access into the right lower quadrant was obtained, via the paracentesis catheter system and direct ultrasound guidanc e. Approximately 7.1 liters of straw-colored fluid was removed. The patient was stable throughout the pr ocedure and remained stable upon discharge from Department of Radiology. IMPRESSION: Successful paracentesis under ultrasound guidance.
== END 2020-07-08 11:40 | disposition home or self-care (01) ==
LOC: RADPROMAIN 08:11
PROVIDERS: ATTEND Internal Medicine Gastroenterology
DX: R18.8 Other ascites (principal)
CPT/HCPCS: 82565; 82947; 85049; 85610; 36415; 49083; P9035; P9047

== ENCOUNTER 2020-07-15 08:19 | Day surgery (SDC) | payer MEDICARE ==
[2020-07-15] MEDS: ALBUMIN HUMAN 25% 50 ML in EMPTY BAG 1 BAG IVPB SCH ×4 (08:39→14:36)
[2020-07-15 08:49] VITALS: TEMP 98.3
[2020-07-15 08:50] LABS: INR 1.1 (<1.2); Prothrombin Time 11.6 sec (9.0-12.0)
[2020-07-15 09:02] LABS: Mean Platelet Volume 11.6; Platelet Count 54 k/uL (150-450)
[2020-07-15 11:09] VITALS: BP 97/53; PULSE 70; RESP 16
--- NOTE | 2020-07-15 11:27 | US ---
Ultrasound-guided paracentesis. DATE OF EXAM: 07/15/2020 CLINICAL HISTORY: Ascites The procedure was discussed with the patient. The risks, complications, benefits, and alternatives we re discussed and any questions were answered. Informed consent was obtained. The patient was placed s upine on the ultrasound table and prepped and draped in the usual sterile fashion. All elements of maximal barrier technique were utilized. Under ultrasound guidance, access into the left lower quadrant was obtained, via the paracentesis catheter system and direct ultrasound guidance . Approximately 7.24 liters of straw-colored fluid was removed. The patient was stable throughout the p rocedure and remained stable upon discharge from Department of Radiology. IMPRESSION: Successful paracentesis under ultrasound guidance.
== END 2020-07-15 11:20 | disposition home or self-care (01) ==
LOC: RADPROMAIN 08:19
PROVIDERS: ATTEND Internal Medicine Gastroenterology
DX: R18.8 Other ascites (principal)
CPT/HCPCS: 82565; 82947; 85049; 85610; 36415; 49083; P9047

== ENCOUNTER 2020-07-22 08:28 | Day surgery (SDC) | payer MEDICARE ==
[2020-07-22 09:00] LABS: Mean Platelet Volume 11.7
[2020-07-22 09:04] LABS: Platelet Count 47 k/uL (150-450)
[2020-07-22 09:05] VITALS: TEMP 98
[2020-07-22 09:10] LABS: INR 1.1 (<1.2); Prothrombin Time 11.4 sec (9.0-12.0)
[2020-07-22] MEDS: ALBUMIN HUMAN 25% 50 ML in EMPTY BAG 1 BAG IVPB SCH ×3 (10:07→10:51)
[2020-07-22 11:26] VITALS: RESP 16
--- NOTE | 2020-07-22 11:56 | US ---
EXAMINATION TYPE: US paracentesis abd w/image DATE OF EXAM: 07/22/2020 COMPARISON: NONE HISTORY: Ascites. PROCEDURE: Maximal barrier technique was utilized. The skin overlying a suitable pocket of fluid was localized with ultrasound and the overlying skin was prepped and draped. Ultrasound was utilized with sterile technique. Lidocaine was used for local anesthesia and a skin jose made with a scalpel. Catheter was advanced under direct ultrasound guidance into a suitable pocket of fluid and approximately 7.7 liter s of serous fluid were removed. Catheter was withdrawn and hemostasis achieved. There is no immedia te complication; the patient is discharged in stable condition. IMPRESSION: STATUS POST ULTRASOUND GUIDED PARACENTESIS FOR PALLIATION OF ASCITES. THIS PROCEDURE WA S PERFORMED BY THE UNDERSIGNED.
[2020-07-22 12:12] VITALS: BP 110/63; PULSE 78
== END 2020-07-22 12:05 | disposition home or self-care (01) ==
LOC: RADPROMAIN 08:28
PROVIDERS: ATTEND Internal Medicine Gastroenterology
DX: R18.8 Other ascites (principal)
CPT/HCPCS: 82565; 82947; 85049; 85610; 36415; 49083; P9047

== ENCOUNTER 2020-07-29 08:21 | Day surgery (SDC) | payer MEDICARE ==
[2020-07-29 08:34] VITALS: RESP 16; TEMP 98.3
[2020-07-29 08:58] LABS: Mean Platelet Volume 10.4
[2020-07-29 09:00] LABS: Platelet Count 54 k/uL (150-450)
[2020-07-29 09:05] LABS: INR 1.1 (<1.2); Prothrombin Time 11.3 sec (9.0-12.0)
[2020-07-29] MEDS: ALBUMIN HUMAN 25% 50 ML in EMPTY BAG 1 BAG IVPB SCH ×4 (09:58→10:58)
[2020-07-29 10:56] VITALS: BP 121/60; PULSE 80
--- NOTE | 2020-07-29 11:20 | US ---
Ultrasound-guided paracentesis. DATE OF EXAM: 07/29/2020 CLINICAL HISTORY: ascites The procedure was discussed with the patient. The risks, complications, benefits, and alternatives we re discussed and any questions were answered. Informed consent was obtained. The patient was placed s upine on the ultrasound table and prepped and draped in the usual sterile fashion. All elements of maximal barrier technique were utilized. Under ultrasound guidance, access into the left lower quadrant was obtained, via the paracentesis catheter system and direct ultrasound guidance . Approximately 7.75 liters of straw-colored fluid was removed. The patient was stable throughout the p rocedure and remained stable upon discharge from Department of Radiology. IMPRESSION: Successful paracentesis under ultrasound guidance.
== END 2020-07-29 11:25 | disposition home or self-care (01) ==
LOC: RADPROMAIN 08:21
PROVIDERS: ATTEND Internal Medicine Gastroenterology
DX: R18.8 Other ascites (principal)
CPT/HCPCS: 82565; 85049; 85610; 36415; 49083; P9047

== ENCOUNTER 2020-08-03 19:36 | Emergency (ER) | payer MEDICARE ==
[2020-08-03] MEDS ORDERED: SODIUM CHLORIDE 0.9% 500 ML 500 ML IV STA (20:01)
[2020-08-03] MEDS ORDERED: IPRATROPIUM-ALBUTEROL 3 ML NEB INHALATION STA (20:03)
--- NOTE | 2020-08-03 20:38 | XR ---
EXAMINATION TYPE: XR chest 2V DATE OF EXAM: 08/03/2020 COMPARISON: Chest x-ray March 04, 2020 HISTORY: Cough and shortness of breath. History of recurrent ascites. TECHNIQUE: Frontal and lateral views of the chest are obtained. FINDINGS: Somewhat low lung volumes redemonstrated. There is no focal air space opacity, pleural effu juan, or pneumothorax seen. The cardiac silhouette size is stable and within normal limits. The os seous structures are intact. IMPRESSION: No acute cardiopulmonary process. No significant change from prior.
[2020-08-03 20:42] LABS: Basophils % (A) 0 %; Eosinophils # (A) 0.2 k/uL (0-0.7); Eosinophils % (A) 7 %; HCT 28.2 % (34.0-46.0); HGB 8.9 gm/dL (11.4-16.0); Hypochromasia Slight; Lymphocytes # (A) 0.4 k/uL (1.0-4.8); Lymphocytes % (A) 13 %; MCH 29.9 pg (25.0-35.0); MCHC 31.8 g/dL (31.0-37.0); Mean Platelet Volume 10.4; Monocytes # (A) 0.3 k/uL (0-1.0); Monocytes % (A) 8 %; Neutrophils # (A) 2.3 k/uL (1.3-7.7); Neutrophils % (A) 70 %; RBC 2.99 m/uL (3.80-5.40); RDW 15.4 % (11.5-15.5); WBC 3.2 k/uL (3.8-10.6)
--- NOTE | 2020-08-03 20:43 | ED ---
General Adult HPI - General Source: patient, RN notes reviewed Mode of arrival: wheelchair Limitations: no limitations <Ranjan Hauser - Last Filed: 08/03/20 23:38> <Deepthi Schaeffer - Last Filed: 08/04/20 14:35> - General Chief complaint: Shortness of Breath Stated complaint: Difficulty Breathing Time Seen by Provider: 08/03/20 19:51 - History of Present Illness Initial comments: 65-year-old female with a past medical history of asthma, heart failure, fibromyalgia, end-stage liver disease on transplantation list, IDDM, pancytopenia, anemia presents to the emergency room for a chief complaint of cough. Patient states 4-5 days ago she developed a cough and shortness of breath. Patient denies any chest pain. She does admit that this cough is somewhat productive. Patient reports she does have a history of asthma. States also states she has congestion and her ears feel plugged a slight headache. No fevers at home. Patient denies any abnormal peripheral swelling. Patient has no other complaints at this time including chest pain, abdominal pain, nausea or vomiting, headache, or visual changes. (Ranjan Hauser) - Related Data Home Medications Medication Instructions Recorded Confirmed Montelukast [Singulair] 10 mg PO DAILY 07/10/14 07/29/20 Ezetimibe [Zetia] 10 mg PO DAILY 09/04/16 07/29/20 INSULIN LISPRO (For Pump) [humaLOG 0.01 units SQ-PUMP CONTINUOUS 09/04/16 07/29/20 (For Pump)] Spironolactone [Aldactone] 100 mg PO DAILY 10/05/16 07/29/20 Sertraline [Zoloft] 25 mg PO DAILY 01/12/17 07/29/20 Acetaminophen [Tylenol] 325 mg PO Q4H PRN 09/15/17 07/29/20 EPINEPHrine [Epipen 2-Sanchez] 0.3 mg IM ONCE PRN 11/23/17 07/29/20 Propranolol [Inderal] 10 mg PO DAILY 06/11/18 07/29/20 Lactulose 20 gm PO DAILY 08/22/18 07/29/20 Ergocalciferol (Vitamin D2) 50,000 unit PO JOE 09/17/18 07/29/20 [Vitamin D2] Atorvastatin [Lipitor] 40 mg PO HS 02/03/20 07/29/20 Furosemide [Lasix] 40 mg PO BID 02/03/20 07/29/20 Midodrine [ProAmatine] 5 mg PO TID 02/03/20 07/29/20 Vitamin A Acetate [Vitamin A] 1 tab PO DAILY 02/03/20 07/29/20 diphenhydrAMINE HCL [Benadryl] 25 mg PO DAILY PRN 04/05/20 07/29/20 Potassium Chloride ER [K-Dur 20] 20 meq PO DAILY 06/24/20 07/29/20 Previous Rx's Medication Instructions Recorded Pantoprazole Sodium [Protonix] 40 mg PO BID #60 tablet. 11/09/17 Albuterol Inhaler [Ventolin Hfa 2 puff INHALATION RT-QID PRN #2 08/03/20 Inhaler] puff Allergies Allergy/AdvReac Type Severity Reaction Status Date / Time doxycycline Allergy Rash/Hives Verified 08/03/20 19:45 iodine Allergy Rash/Hives Verified 08/03/20 19:45 Penicillins Allergy Rash/Hives Verified 08/03/20 19:45 shellfish derived Allergy Rash/Hives Verified 08/03/20 19:45 Sulfa (Sulfonamide Allergy Rash/Hives Verified 08/03/20 19:45 Antibiotics) venom-honey bee Allergy Anaphylaxis Verified 08/03/20 19:45 [bee venom (honey bee)] Review of Systems ROS Other: All systems not noted in ROS Statement are negative. <Ranjan Hauser P - Last Filed: 08/03/20 23:38> ROS Other: All systems not noted in ROS Statement are negative. <Deepthi Schaeffer - Last Filed: 08/04/20 14:35> ROS Statement: Those systems with pertinent positive or pertinent negative responses have been documented in the HPI. Past Medical History Past Medical History: Asthma, Coronary Artery Disease (CAD), Cancer, Heart Failure, Diabetes Mellitus, Fibromyalgia, Liver Disease, Skin Disorder Additional Past Medical History / Comment(s): Non-ETOH cirrhosis, ascities, esophageal varices, pancytopenia, thrombycytopenia, anemia, IDDM with insulin pump, several nodules both lungs being monitored, urinary leakage at times and pt states she has diarrhea much of the time, psoriasis, cervical cancer with hysterectomy, pt states 2 blockages in back of heart, awaiting liver transplant and CABG at [facility] in [place]. Patient has been approved but waiting for grandson to get worked up as a donor. Grandson not a match for donor. Patient awaiting another potential match for donor. recently . Both surgeries have been postponed. History of Any Multi-Drug Resistant Organisms: None Reported Past Surgical History: Back Surgery, Cholecystectomy, Hysterectomy, Orthopedic Surgery, Tonsillectomy, Tubal Ligation Additional Past Surgical History / Comment(s): multi large volume Paracentesis, EGD with banded esophageal varices, colonoscopies, bilateral rotator cuff repairs, bilateral breast bx-benign, back surgery in 2015 Past Anesthesia/Blood Transfusion Reactions: Previous Problems w/ Anesthesia Additional Past Anesthesia/Blood Transfusion Reaction / Comment(s): difficulty breathing when coming out of anesthesia; difficulty waking up. Hypotension with general anesthesia. blood transfusions without reaction. Past Psychological History: Depression Smoking Status: Former smoker Past Alcohol Use History: None Reported Past Drug Use History: None Reported - Past Family History Mother Family Medical History: Cancer, Dementia, Osteoarthritis (OA) Additional Family Medical History / Comment(s): skin cancer. Father Family Medical History: Coronary Artery Disease (CAD) Additional Family Medical History / Comment(s): cabg/pacemaker Brother(s) Family Medical History: Cancer Sister(s) Family Medical History: Cancer Additional Family Medical History / Comment(s): Breast CA. <Ranjan Hauser P - Last Filed: 08/03/20 23:38> General Exam Limitations: no limitations General appearance: alert, in no apparent distress Head exam: Present: atraumatic, normocephalic, normal inspection Eye exam: Present: normal appearance, PERRL, EOMI. Absent: scleral icterus, conjunctival injection, periorbital swelling ENT exam: Present: normal exam, normal oropharynx, mucous membranes moist, normal external ear exam. Absent: TM's normal bilaterally (Patient has effusion of the right tympanic membrane.) Neck exam: Present: normal inspection, full ROM. Absent: tenderness, meningismus, lymphadenopathy Respiratory exam: Present: normal lung sounds bilaterally. Absent: respiratory distress, wheezes, rales, rhonchi, stridor Cardiovascular Exam: Present: regular rate, normal rhythm, normal heart sounds. Absent: systolic murmur, diastolic murmur, rubs, gallop, clicks GI/Abdominal exam: Present: soft, normal bowel sounds. Absent: distended, tenderness, guarding, rebound, rigid Neurological exam: Present: alert <Ranjan Hauser - Last Filed: 08/03/20 23:38> Course Vital Signs 08/03/20 08/03/20 08/03/20 19:41 20:00 20:43 Temperature 98.1 F Pulse Rate 92 86 Respiratory 28 H 21 Rate Blood Pressure 110/56 O2 Sat by Pulse 99 Oximetry 08/03/20 08/03/20 08/03/20 20:51 21:11 21:43 Temperature Pulse Rate 84 89 Respiratory 20 Rate Blood Pressure 97/53 O2 Sat by Pulse 100 99 Oximetry 08/03/20 08/03/20 21:52 22:24 Temperature 98.0 F Pulse Rate 94 94 Respiratory 19 19 Rate Blood Pressure 104/48 109/43 O2 Sat by Pulse 98 100 Oximetry EKG Findings - EKG Comments: EKG Findings:: Normal sinus rhythm, [place] interval 120, QTC 447 <Ranjan Hauser - Last Filed: 08/03/20 23:38> Medical Decision Making - Lab Data Result diagrams: 08/03/20 20:17 08/03/20 20:17 <Ranjan Hauser - Last Filed: 08/03/20 23:38> - Lab Data Result diagrams: 08/03/20 20:17 08/03/20 20:17 <Deepthi Schaeffer - Last Filed: 08/04/20 14:35> - Medical Decision Making Vitals are stable. Patient reports that she does have low blood pressure normally with a systolic in the 90s. Patient does have a history of pancytopenia. CBC shows a white blood for count of 3.2. Hemoglobin 8.9. Platelet count 44. These are baseline for patient. CMP is unremarkable. EKG shows a normal sinus rhythm. Troponin negative. Chest x-ray shows no acute cardiopulmonary process or significant change from prior. Patient was given DuoNeb as she did have slight wheezing in the lung bases and had significant improvement after treatment. Patient able to ambulate to the bathroom with oxygen level between 99 and 100. At this time patient feels comfortable going home. Patient was tested for Covid given viral symptoms along with shortness of breath. Patient will return here if she has any worsening symptoms. She will otherwise follow up with her primary care doctor.I discussed this case with attending Dr. Schaeffer who agrees with this assessment and treatment plan. (Ranjan Hauser) I was available for consultation in the emergency department. The history and physical exam were done by the midlevel provider. I was consulted for this patients care. I reviewed the case with the midlevel provider and based on their presentation of the patient, I agree with the assessment, medical decision making and plan of care as documented. Chart was dictated using [employer] dictation software. Attempts were made to correct any dictation errors however some typographical errors may persist. (Deepthi Schaeffer) - Lab Data Lab Results 08/03/20 08/03/20 08/03/20 Range/Units 20:17 20:17 20:17 WBC 3.2 L (3.8-10.6) k/uL RBC 2.99 L (3.80-5.40) m/uL Hgb 8.9 L (11.4-16.0) gm/dL Hct 28.2 L (34.0-46.0) % MCV 94.0 (80.0-100.0) fL MCH 29.9 (25.0-35.0) pg MCHC 31.8 (31.0-37.0) g/dL RDW 15.4 (11.5-15.5) % Plt Count 44 L (150-450) k/uL Neutrophils % 70 % Lymphocytes % 13 % Monocytes % 8 % Eosinophils % 7 % Basophils % 0 % Neutrophils # 2.3 (1.3-7.7) k/uL Lymphocytes # 0.4 L (1.0-4.8) k/uL Monocytes # 0.3 (0-1.0) k/uL Eosinophils # 0.2 (0-0.7) k/uL Basophils # 0.0 (0-0.2) k/uL Hypochromasia Slight PT 11.2 (9.0-12.0) sec INR 1.1 (<1.2) APTT 23.5 (22.0-30.0) sec Sodium 131 L (137-145) mmol/L Potassium 4.6 (3.5-5.1) mmol/L Chloride 107 (98-107) mmol/L Carbon Dioxide 18 L (22-30) mmol/L Anion Gap 6 mmol/L BUN 33 H (7-17) mg/dL Creatinine 1.45 H (0.52-1.04) mg/dL Est GFR (CKD-EPI)AfAm 43 (>60 ml/min/1.73 sqM) Est GFR (CKD-EPI)NonAf 37 (>60 ml/min/1.73 sqM) Glucose 156 H (74-99) mg/dL Plasma Lactic Acid Juan (0.7-2.0) mmol/L Calcium 8.2 L (8.4-10.2) mg/dL Total Bilirubin 0.7 (0.2-1.3) mg/dL AST 38 H (14-36) U/L ALT 30 (4-34) U/L Alkaline Phosphatase 87 (38-126) U/L Troponin I (0.000-0.034) ng/mL NT-Pro-B Natriuret Pep pg/mL Total Protein 5.4 L (6.3-8.2) g/dL Albumin 3.0 L (3.5-5.0) g/dL 08/03/20 08/03/20 08/03/20 Range/Units 20:17 20:17 20:17 WBC (3.8-10.6) k/uL RBC (3.80-5.40) m/uL Hgb (11.4-16.0) gm/dL Hct (34.0-46.0) % MCV (80.0-100.0) fL MCH (25.0-35.0) pg MCHC (31.0-37.0) g/dL RDW (11.5-15.5) % Plt Count (150-450) k/uL Neutrophils % % Lymphocytes % % Monocytes % % Eosinophils % % Basophils % % Neutrophils # (1.3-7.7) k/uL Lymphocytes # (1.0-4.8) k/uL Monocytes # (0-1.0) k/uL Eosinophils # (0-0.7) k/uL Basophils # (0-0.2) k/uL Hypochromasia PT (9.0-12.0) sec INR (<1.2) APTT (22.0-30.0) sec Sodium (137-145) mmol/L Potassium (3.5-5.1) mmol/L Chloride (98-107) mmol/L Carbon Dioxide (22-30) mmol/L Anion Gap mmol/L BUN (7-17) mg/dL Creatinine (0.52-1.04) mg/dL Est GFR (CKD-EPI)AfAm (>60 ml/min/1.73 sqM) Est GFR (CKD-EPI)NonAf (>60 ml/min/1.73 sqM) Glucose (74-99) mg/dL Plasma Lactic Acid Juan 1.1 (0.7-2.0) mmol/L Calcium (8.4-10.2) mg/dL Total Bilirubin (0.2-1.3) mg/dL AST (14-36) U/L ALT (4-34) U/L Alkaline Phosphatase (38-126) U/L Troponin I <0.012 (0.000-0.034) ng/mL NT-Pro-B Natriuret Pep 133 pg/mL Total Protein (6.3-8.2) g/dL Albumin (3.5-5.0) g/dL Disposition Is patient prescribed a controlled substance at d/c from ED?: No Time of Disposition: 22:04 <Ranjan Hauser - Last Filed: 08/03/20 23:38> <Deepthi Schaeffer - Last Filed: 08/04/20 14:35> Clinical Impression: Cough Disposition: HOME SELF-CARE Condition: Good Instructions (If sedation given, give patient instructions): Acute Cough (ED) Additional Instructions: Please take medications as directed. Follow-up with your doctor in one to 2 days. Return to the emergency room if you have any worsening symptoms or worsening shortness of breath. Prescriptions: Albuterol Inhaler [Ventolin Hfa Inhaler] 2 puff INHALATION RT-QID PRN #2 puff PRN Reason: Shortness Of Breath Referrals: Dario Underwood MD [Primary Care Provider] - 1-2 days
[2020-08-03 20:48] LABS: Platelet Count 44 k/uL (150-450)
[2020-08-03 21:06] LABS: Calcium 8.2 mg/dL (8.4-10.2); INR 1.1 (<1.2); Partial Thromboplastin Time 23.5 sec (22.0-30.0); Potassium 4.6 mmol/L (3.5-5.1); Prothrombin Time 11.2 sec (9.0-12.0); Total Bilirubin 0.7 mg/dL (0.2-1.3); Total Protein 5.4 g/dL (6.3-8.2)
[2020-08-03 21:53] VITALS: PULSE 94; RESP 19
[2020-08-03 22:25] VITALS: BP 109/43; TEMP 98
== END 2020-08-03 22:25 | disposition home or self-care (01) ==
LOC: EC 19:36
DX: R05 Cough (principal); R03.1 Nonspecific low blood-pressure reading; D61.818 Other pancytopenia; R06.2 Wheezing; R06.02 Shortness of breath; K72.90 Hepatic failure, unspecified without coma; I25.10 Atherosclerotic heart disease of native coronary artery without angina pectoris; I50.9 Heart failure, unspecified; E11.9 Type 2 diabetes mellitus without complications; M79.7 Fibromyalgia; F32.9 Major depressive disorder, single episode, unspecified; Z79.4 Long term (current) use of insulin; Z96.41 Presence of insulin pump (external) (internal); Z79.899 Other long term (current) drug therapy; Z20.828 Contact with and (suspected) exposure to other viral communicable diseases; Z88.1 Allergy status to other antibiotic agents; Z91.048 Other nonmedicinal substance allergy status; Z88.0 Allergy status to penicillin; Z91.013 Allergy to seafood; Z88.2 Allergy status to sulfonamides; Z91.030 Bee allergy status; Z85.41 Personal history of malignant neoplasm of cervix uteri; Z90.710 Acquired absence of both cervix and uterus; Z95.1 Presence of aortocoronary bypass graft; Z76.82 Awaiting organ transplant status; Z87.891 Personal history of nicotine dependence; Z87.09 Personal history of other diseases of the respiratory system
CPT/HCPCS: 99285 ×2; 36415; 94640; 93005; 83880; 80053; 83605; 84484; 85025; 85610; 85730; 71046; U0003

== ENCOUNTER 2020-08-05 08:56 | Day surgery (SDC) | payer MEDICARE ==
[2020-08-05 09:14] VITALS: TEMP 97.6
[2020-08-05 09:16] LABS: Mean Platelet Volume 10.7
[2020-08-05 09:22] LABS: Platelet Count 42 k/uL (150-450)
[2020-08-05 09:28] LABS: INR 1.1 (<1.2)
[2020-08-05] MEDS: ALBUMIN HUMAN 25% 50 ML in EMPTY BAG 1 BAG IVPB SCH ×4 (10:37→11:25)
[2020-08-05 11:47] VITALS: BP 111/50; PULSE 80; RESP 18
--- NOTE | 2020-08-05 16:23 | US ---
EXAMINATION TYPE: US paracentesis abd w/image DATE OF EXAM: 08/05/2020 CLINICAL HISTORY: Ascites COMPARISON: 07/29/2020 DENTAL RESIDENT: Dr. Rica Davis PROCEDURE: Preprocedure preliminary ultrasound imaging demonstrates large volume ascites. The procedure was discussed with the patient. The risks, complications, benefits, and alternatives we re discussed and any questions were answered. Informed consent was obtained. The patient was placed s upine on the ultrasound table and prepped and draped in the usual sterile fashion. All elements of maximal barrier technique were utilized. Under ultrasound guidance, access into the right lower quadrant was obtained with a 5 English one-step centesis catheter. Approximately 7.5 liters of clear serous fluid was removed. Catheter was removed and sterile bandage was applied. The patient was stable throughout the procedure and remained stable upon discharge from Department of Radiology. IMPRESSION: Successful ultrasound-guided paracentesis, with removal of 7.5 liters of clear serous fluid.
== END 2020-08-05 12:00 | disposition home or self-care (01) ==
LOC: RADPROMAIN 08:56
PROVIDERS: ATTEND Internal Medicine Gastroenterology
DX: R18.8 Other ascites (principal)
CPT/HCPCS: 82565; 82947; 85049; 85610; 36415; 49083; P9047

== ENCOUNTER 2020-08-12 08:10 | Day surgery (SDC) | payer MEDICARE ==
[2020-08-12] MEDS: ALBUMIN HUMAN 25% 50 ML in EMPTY BAG 1 BAG IVPB SCH ×4 (08:49→10:23)
[2020-08-12 08:53] VITALS: RESP 18; TEMP 98.3
[2020-08-12 09:13] LABS: Mean Platelet Volume 11.4
[2020-08-12 09:22] LABS: Platelet Count 35 k/uL (150-450)
[2020-08-12 09:27] LABS: INR 1.1 (<1.2); Prothrombin Time 11.4 sec (9.0-12.0)
[2020-08-12 11:47] VITALS: BP 121/70; PULSE 99
--- NOTE | 2020-08-12 15:24 | US ---
EXAMINATION TYPE: US paracentesis abd w/image DATE OF EXAM: 08/12/2020 CLINICAL HISTORY: Ascites COMPARISON: Paracentesis 08/05/2020 SHIPPING AND RECEIVING COORDINATOR: Dr. Rica Davis PROCEDURE: Preprocedure preliminary ultrasound imaging demonstrates large volume ascites. The procedure was discussed with the patient. The risks, complications, benefits, and alternatives we re discussed and any questions were answered. Informed consent was obtained. The patient was placed s upine on the ultrasound table and prepped and draped in the usual sterile fashion. All elements of maximal barrier technique were utilized. Under ultrasound guidance, access into the left lower quadrant was obtained with a 5 Jamaican one-step centesis catheter. Approximately 8 liters of clear serous fluid was removed. Catheter was removed and sterile bandage wa s applied. The patient was stable throughout the procedure and remained stable upon discharge from [facility]. IMPRESSION: Successful ultrasound-guided paracentesis, with removal of 8 liters of clear serous fluid.
== END 2020-08-12 12:10 | disposition home or self-care (01) ==
LOC: RADPROMAIN 08:10
PROVIDERS: ATTEND Internal Medicine Gastroenterology
DX: R18.8 Other ascites (principal)
CPT/HCPCS: 82565; 85049; 85610; 36415; 49083; P9047

== ENCOUNTER 2020-08-19 08:33 | Day surgery (SDC) | payer MEDICARE ==
[2020-08-19 09:13] LABS: Mean Platelet Volume 10.8
[2020-08-19 09:19] LABS: Platelet Count 47 k/uL (150-450)
[2020-08-19 09:20] VITALS: RESP 16; TEMP 97.7
[2020-08-19 09:36] LABS: INR 1.1 (<1.2); Prothrombin Time 11.1 sec (9.0-12.0)
[2020-08-19] MEDS: ALBUMIN HUMAN 25% 50 ML in EMPTY BAG 1 BAG IVPB SCH ×4 (10:04→11:51)
[2020-08-19 11:57] VITALS: BP 126/68; PULSE 90
--- NOTE | 2020-08-20 17:42 | US ---
EXAMINATION TYPE: US paracentesis abd w/image DATE OF EXAM: 08/19/2020 CLINICAL HISTORY: 65 year-old female liver disease on the transplant list. The procedure was discussed with the patient. The risks, complications, benefits, and alternatives we re discussed and any questions were answered. Informed consent was obtained. The patient was placed s upine on the ultrasound table and prepped and draped in the usual sterile fashion. All elements of maximal barrier technique were utilized. Ultrasound was utilized to determine the precise skin entry site along the right lower quadrant. Utilizing 6 Korean safety centesis catheter and trocar technique, the catheter was advanced into the peritoneal fluid. Approximately 7.1 liters of straw-colored fluid was removed. The patient was stable throughout the pr ocedure and remained stable upon discharge from Department of Radiology. The patient received IV albumin during the drainage as ordered by the physician. IMPRESSION: Successful therapeutic paracentesis under ultrasound guidance with 7.1 L removed.
== END 2020-08-19 11:51 | disposition home or self-care (01) ==
LOC: RADPROMAIN 08:33
PROVIDERS: ATTEND Internal Medicine Gastroenterology
DX: R18.8 Other ascites (principal)
CPT/HCPCS: 82565; 82947; 85049; 85610; 36415; 49083; P9047

== ENCOUNTER 2020-08-20 18:31 | Emergency (ER) | payer MEDICARE ==
--- NOTE | 2020-08-20 18:53 | ED ---
General Adult HPI - General Chief complaint: Recheck/Abnormal Lab/Rx Stated complaint: procedure site leaking Time Seen by Provider: 08/20/20 18:38 Source: patient Mode of arrival: ambulatory Limitations: no limitations - History of Present Illness Initial comments: Dictation was produced using [employer] dictation software. please excuse any grammatical, word or spelling errors. This patient was cared for during a federal and state declared state of emergency secondary to Covid 19 Chief Complaint: 65-year-old feel presents with abdominal pain and leaking from paracentesis site History of Present Illness: 65-year-old female she has past medical history of liver failure. She is currently on transplant list. Patient gets weekly pa racentesis. Yesterday she had a paracentesis performed by interventional radiology. They removed 7.1 L of peritoneal fluid. Patient states that since the paracentesis she's been having leaking from the paracentesis site. She states that she's had leakage before however it hasn't been this profuse. She also does have some intermittent episodes of abdominal pain. She states she's had this abdominal pain in the past during procedure. Patient has no other complaints per she is tolerating oral. Denies any constitutional symptoms. The ROS documented in this emergency department record has been reviewed and confirmed by me. Those systems with pertinent positive or negative responses have been documented in the HPI. All other systems are other negative and/or noncontributory. PHYSICAL EXAM: General Impression: Alert and oriented x3, not in acute distress HEENT: Normocephalic atraumatic, extra-ocular movements intact, pupils equal and reactive to light bilaterally, mucous membranes moist. Cardiovascular: Heart regular rate and rhythm Chest: Able to complete full sentences, no retractions, no tachypnea Abdomen: abdomen soft, non-tender, non-distended, no organomegaly, puncture site to the left abdomen with tripping of peritoneal fluid that is [place] in color Musculoskeletal: Pulses present and equal in all extremities, no peripheral edema Motor: no focal deficits noted Neurological: CN II-XII grossly intact, no focal motor or sensory deficits noted Skin: Intact with no visualized rashes Psych: Normal affect and mood ED course: 65-year-old female presents with leaking paracentesis site after paracentesis performed yesterday. vital signs upon arrival are within acceptable limits. Abdominal x-rays unremarkable. Case was discussed with Dr. Rica Davis who works with interventional radiology. She recommends hard pressure dressing. She does not advise any suturing at this time. Hard pressure dressing was placed. Patient given dressing supplies to take home. Patient is agreeable with plan. - Related Data Home Medications Medication Instructions Recorded Confirmed Montelukast [Singulair] 10 mg PO DAILY 07/10/14 08/19/20 Ezetimibe [Zetia] 10 mg PO DAILY 09/04/16 08/19/20 INSULIN LISPRO (For Pump) [humaLOG 0.01 units SQ-PUMP CONTINUOUS 09/04/16 08/19/20 (For Pump)] Spironolactone [Aldactone] 100 mg PO DAILY 10/05/16 08/19/20 Sertraline [Zoloft] 25 mg PO DAILY 01/12/17 08/19/20 EPINEPHrine [Epipen 2-Sanchez] 0.3 mg IM ONCE PRN 11/23/17 08/19/20 Propranolol [Inderal] 10 mg PO DAILY 06/11/18 08/19/20 Lactulose 20 gm PO DAILY 08/22/18 08/19/20 Ergocalciferol (Vitamin D2) 50,000 unit PO JOE 09/17/18 08/19/20 [Vitamin D2] Atorvastatin [Lipitor] 40 mg PO HS 02/03/20 08/19/20 Furosemide [Lasix] 40 mg PO BID 02/03/20 08/19/20 Midodrine [ProAmatine] 5 mg PO TID 02/03/20 08/19/20 Vitamin A Acetate [Vitamin A] 1 tab PO DAILY 02/03/20 08/19/20 diphenhydrAMINE HCL [Benadryl] 25 mg PO DAILY PRN 04/05/20 08/19/20 Potassium Chloride ER [K-Dur 20] 20 meq PO DAILY 06/24/20 08/19/20 Previous Rx's Medication Instructions Recorded Pantoprazole Sodium [Protonix] 40 mg PO BID #60 tablet. 11/09/17 Allergies Allergy/AdvReac Type Severity Reaction Status Date / Time doxycycline Allergy Rash/Hives Verified 08/20/20 18:37 iodine Allergy Rash/Hives Verified 08/20/20 18:37 Penicillins Allergy Rash/Hives Verified 08/20/20 18:37 shellfish derived Allergy Rash/Hives Verified 08/20/20 18:37 Sulfa (Sulfonamide Allergy Rash/Hives Verified 08/20/20 18:37 Antibiotics) venom-honey bee Allergy Anaphylaxis Verified 08/20/20 18:37 [bee venom (honey bee)] Review of Systems ROS Statement: Those systems with pertinent positive or pertinent negative responses have been documented in the HPI. ROS Other: All systems not noted in ROS Statement are negative. Past Medical History Past Medical History: Asthma, Coronary Artery Disease (CAD), Cancer, Heart Failure, Diabetes Mellitus, Fibromyalgia, Liver Disease, Skin Disorder Additional Past Medical History / Comment(s): Non-ETOH cirrhosis, ascities, esophageal varices, pancytopenia, thrombycytopenia, anemia, IDDM with insulin pump, several nodules both lungs being monitored, urinary leakage at times and pt states she has diarrhea much of the time, psoriasis, cervical cancer with hysterectomy, pt states 2 blockages in back of heart, awaiting liver transplant and CABG at [facility] in [place]. Patient has been approved but waiting for grandson to get worked up as a donor. Grandson not a match for donor. Patient awaiting another potential match for donor. recently . Both surgeries have been postponed. History of Any Multi-Drug Resistant Organisms: None Reported Past Surgical History: Back Surgery, Cholecystectomy, Hysterectomy, Orthopedic Surgery, Tonsillectomy, Tubal Ligation Additional Past Surgical History / Comment(s): multi large volume Paracentesis, EGD with banded esophageal varices, colonoscopies, bilateral rotator cuff repairs, bilateral breast bx-benign, back surgery in 2014 Past Anesthesia/Blood Transfusion Reactions: Previous Problems w/ Anesthesia Additional Past Anesthesia/Blood Transfusion Reaction / Comment(s): difficulty b reathing when coming out of anesthesia; difficulty waking up. Hypotension with general anesthesia. blood transfusions without reaction. Past Psychological History: Depression Smoking Status: Former smoker Past Alcohol Use History: None Reported Past Drug Use History: None Reported - Past Family History Mother Family Medical History: Cancer, Dementia, Osteoarthritis (OA) Additional Family Medical History / Comment(s): skin cancer. Father Family Medical History: Coronary Artery Disease (CAD) Additional Family Medical History / Comment(s): cabg/pacemaker Brother(s) Family Medical History: Cancer Sister(s) Family Medical History: Cancer Additional Family Medical History / Comment(s): Breast CA. General Exam Limitations: no limitations Course Vital Signs 08/20/20 18:34 Temperature 98.8 F Pulse Rate 83 Respiratory 22 Rate Blood Pressure 122/65 O2 Sat by Pulse 100 Oximetry Disposition Clinical Impression: Status post abdominal paracentesis Disposition: HOME SELF-CARE Condition: Good Instructions (If sedation given, give patient instructions): Paracentesis (DC) Is patient prescribed a controlled substance at d/c from ED?: No Referrals: Dario Underwood MD [Primary Care Provider] - 1-2 days Time of Disposition: 20:33
[2020-08-20] MEDS: LIDOCAINE 1%-EPI 1:100,000 20 ML VIAL SQ STA ×2 (19:16→20:58)
--- NOTE | 2020-08-20 19:16 | XR ---
EXAM: Abdomen radiograph. HISTORY: Pain. TECHNIQUE: Upright AP view. COMPARISON: 09/14/2016. FINDINGS: There are nondilated bowel loops with a nonobstructive pattern. No free air. There are no pathologic calcifications. No acute osseous abnormality seen. Cholecystectomy clips and lower lumbar fusion are noted IMPRESSION: Nonobstructive bowel gas pattern.
[2020-08-20 20:58] VITALS: BP 129/89; PULSE 71; RESP 18; TEMP 97
== END 2020-08-20 20:58 | disposition home or self-care (01) ==
LOC: EC 18:31
DX: T81.89XA Other complications of procedures, not elsewhere classified, initial encounter (principal); I11.0 Hypertensive heart disease with heart failure; I50.9 Heart failure, unspecified; J45.909 Unspecified asthma, uncomplicated; E11.9 Type 2 diabetes mellitus without complications; F32.9 Major depressive disorder, single episode, unspecified; Z79.899 Other long term (current) drug therapy; Z79.4 Long term (current) use of insulin; Z88.1 Allergy status to other antibiotic agents; Z88.0 Allergy status to penicillin; Z91.048 Other nonmedicinal substance allergy status; Z88.2 Allergy status to sulfonamides; Z91.013 Allergy to seafood; Z91.030 Bee allergy status; Z90.710 Acquired absence of both cervix and uterus; Z98.51 Tubal ligation status; Z87.891 Personal history of nicotine dependence; Z98.890 Other specified postprocedural states; Z90.49 Acquired absence of other specified parts of digestive tract; Z85.41 Personal history of malignant neoplasm of cervix uteri; Z96.41 Presence of insulin pump (external) (internal)
CPT/HCPCS: 74018; 99283

== ENCOUNTER 2020-08-26 08:23 | Day surgery (SDC) | payer MEDICARE ==
[2020-08-26 08:49] VITALS: TEMP 97.4
[2020-08-26 09:12] LABS: Mean Platelet Volume 11.2
[2020-08-26 09:22] LABS: Platelet Count 46 k/uL (150-450)
[2020-08-26 09:30] LABS: Prothrombin Time 10.7 sec (9.0-12.0)
[2020-08-26] MEDS: ALBUMIN HUMAN 25% 50 ML in EMPTY BAG 1 BAG IVPB SCH ×4 (10:02→10:46)
[2020-08-26 10:36] VITALS: RESP 16
[2020-08-26 11:14] VITALS: PULSE 90
[2020-08-26 12:02] VITALS: BP 129/76
--- NOTE | 2020-08-26 13:07 | US ---
EXAMINATION TYPE: US paracentesis abd w/image DATE OF EXAM: 08/26/2020 COMPARISON: NONE HISTORY: Ascites. PROCEDURE: Maximal barrier technique was utilized. The skin overlying a suitable pocket of fluid was localized with ultrasound and the overlying skin was prepped and draped. Ultrasound was utilized with sterile technique. Lidocaine was used for local anesthesia and a skin jose made with a scalpel. Catheter was advanced under direct ultrasound guidance into a suitable pocket of fluid and approximately 7 liters of serous fluid were removed. Catheter was withdrawn and hemostasis achieved. There is no immediate complication; the patient is discharged in stable condition. IMPRESSION: STATUS POST ULTRASOUND GUIDED PARACENTESIS FOR PALLIATION OF ASCITES. THIS PROCEDURE WA S PERFORMED BY THE UNDERSIGNED.
== END 2020-08-26 11:55 | disposition home or self-care (01) ==
LOC: RADPROMAIN 08:23
PROVIDERS: ATTEND Internal Medicine Gastroenterology
DX: R18.8 Other ascites (principal)
CPT/HCPCS: 82565; 82947; 85049; 85610; 49083; P9047

== ENCOUNTER 2020-09-02 08:26 | Day surgery (SDC) | payer MEDICARE ==
[2020-09-02 09:47] LABS: Mean Platelet Volume 10.4
[2020-09-02 09:53] LABS: Platelet Count 41 k/uL (150-450)
[2020-09-02 10:13] LABS: INR 1.1 (<1.2)
[2020-09-02 10:46] VITALS: RESP 16
[2020-09-02 11:15] VITALS: TEMP 97.8
[2020-09-02] MEDS: ALBUMIN HUMAN 25% 50 ML in EMPTY BAG 1 BAG IVPB SCH ×4 (11:15→11:50)
[2020-09-02 11:48] VITALS: BP 114/57; PULSE 90
--- NOTE | 2020-09-02 14:04 | US ---
Ultrasound-guided paracentesis. DATE OF EXAM: 09/02/2020 CLINICAL HISTORY: Ascites The procedure was discussed with the patient. The risks, complications, benefits, and alternatives we re discussed and any questions were answered. Informed consent was obtained. The patient was placed s upine on the ultrasound table and prepped and draped in the usual sterile fashion. All elements of maximal barrier technique were utilized. Under ultrasound guidance, access into the right lower quadrant was obtained, via the paracentesis catheter system and direct ultrasound guidanc e. Approximately 7.2 liters of straw-colored fluid was removed. The patient was stable throughout the pr ocedure and remained stable upon discharge from Department of Radiology. IMPRESSION: Successful paracentesis under ultrasound guidance.
[2020-09-02 15:15] LABS: Albumin 3.5 g/dL (3.5-5.0); Bilirubin, Delta 0.2 mg/dL (0.0-0.2); Bilirubin,Unconjugated 0.7 mg/dL (0.0-1.1); Calcium 8.6 mg/dL (8.4-10.2); Potassium 4.9 mmol/L (3.5-5.1); Total Bilirubin 0.9 mg/dL (0.2-1.3); Total Protein 6.1 g/dL (6.3-8.2)
[2020-09-02 15:16] LABS: HCT 29.7 % (34.0-46.0); HGB 9.4 gm/dL (11.4-16.0); MCH 31.3 pg (25.0-35.0); MCHC 31.8 g/dL (31.0-37.0); MCV 98.6 fL (80.0-100.0); RBC 3.01 m/uL (3.80-5.40); WBC 3.1 k/uL (3.8-10.6)
== END 2020-09-02 12:05 | disposition home or self-care (01) ==
LOC: RADPROMAIN 08:26
PROVIDERS: ATTEND Internal Medicine Gastroenterology
DX: R18.8 Other ascites (principal)
CPT/HCPCS: 80048; 80076; 85027; 85049; 85610; 36415; 49083; P9035; P9047

== ENCOUNTER 2020-09-09 08:30 | Day surgery (SDC) | payer MEDICARE ==
[2020-09-09] MEDS: ALBUMIN HUMAN 25% 50 ML in EMPTY BAG 1 BAG IVPB SCH ×4 (09:02→11:03)
[2020-09-09 09:03] LABS: Mean Platelet Volume 10.9
[2020-09-09 09:05] LABS: Platelet Count 42 k/uL (150-450)
[2020-09-09 09:45] LABS: INR 1.1 (<1.2); Prothrombin Time 11.2 sec (9.0-12.0)
[2020-09-09 10:34] VITALS: TEMP 97.9
[2020-09-09 11:26] VITALS: BP 113/59; PULSE 78; RESP 16
--- NOTE | 2020-09-09 12:09 | US ---
Ultrasound-guided paracentesis. DATE OF EXAM: 09/09/2020 CLINICAL HISTORY: Ascites The procedure was discussed with the patient. The risks, complications, benefits, and alternatives we re discussed and any questions were answered. Informed consent was obtained. The patient was placed s upine on the ultrasound table and prepped and draped in the usual sterile fashion. All elements of maximal barrier technique were utilized. Under ultrasound guidance, access into the right lower quadrant was obtained, via the paracentesis catheter system and direct ultrasound guidanc e. Approximately 7.6 liters of straw-colored fluid was removed. The patient was stable throughout the pr ocedure and remained stable upon discharge from Department of Radiology. IMPRESSION: Successful paracentesis under ultrasound guidance.
== END 2020-09-09 11:45 | disposition home or self-care (01) ==
LOC: RADPROMAIN 08:30
PROVIDERS: ATTEND Internal Medicine Gastroenterology
DX: R18.8 Other ascites (principal)
CPT/HCPCS: 82565; 82947; 85049; 85610; 36415; 49083; P9035; P9047

== ENCOUNTER 2020-09-16 08:29 | Day surgery (SDC) | payer MEDICARE ==
[2020-09-16 08:52] LABS: Mean Platelet Volume 9.6
[2020-09-16 08:58] LABS: Platelet Count 46 k/uL (150-450)
[2020-09-16] MEDS: ALBUMIN HUMAN 25% 50 ML in EMPTY BAG 1 BAG IVPB SCH ×4 (09:06→11:01)
[2020-09-16 09:09] LABS: INR 1.2 (<1.2)
[2020-09-16 10:39] VITALS: TEMP 97.7
[2020-09-16 11:45] VITALS: BP 100/55; PULSE 76; RESP 18
--- NOTE | 2020-09-16 12:12 | US ---
Ultrasound-guided paracentesis. DATE OF EXAM: 09/16/2020 CLINICAL HISTORY: Ascites The procedure was discussed with the patient. The risks, complications, benefits, and alternatives we re discussed and any questions were answered. Informed consent was obtained. The patient was placed s upine on the ultrasound table and prepped and draped in the usual sterile fashion. All elements of maximal barrier technique were utilized. Under ultrasound guidance, access into the right lower quadrant was obtained, via the paracentesis catheter system and direct ultrasound guidanc e. Approximately 7.7 liters of straw-colored fluid was removed. The patient was stable throughout the pr ocedure and remained stable upon discharge from Department of Radiology. IMPRESSION: Successful paracentesis under ultrasound guidance.
== END 2020-09-16 11:35 | disposition home or self-care (01) ==
LOC: RADPROMAIN 08:29
PROVIDERS: ATTEND Internal Medicine Gastroenterology
DX: R18.8 Other ascites (principal)
CPT/HCPCS: 82565; 82947; 85049; 85610; 36415; 49083; P9073; P9047

== ENCOUNTER 2020-09-22 08:03 | Day surgery (SDC) | payer MEDICARE ==
[2020-09-22 08:47] VITALS: TEMP 98
[2020-09-22 08:49] LABS: Mean Platelet Volume 10.6
[2020-09-22 08:53] LABS: Platelet Count 42 k/uL (150-450)
[2020-09-22 09:01] LABS: INR 1.1 (<1.2); Prothrombin Time 11.5 sec (9.0-12.0)
[2020-09-22] MEDS: ALBUMIN HUMAN 25% 50 ML in EMPTY BAG 1 BAG IVPB SCH ×4 (09:40→11:08)
[2020-09-22 11:04] VITALS: BP 126/80; PULSE 72; RESP 18
--- NOTE | 2020-09-22 17:16 | US ---
EXAMINATION TYPE: US paracentesis abd w/image DATE OF EXAM: 09/22/2020 CLINICAL HISTORY: Ascites COMPARISON: Paracentesis 09/16/2020 KEYCASE ASSEMBLER: Dr. Rica Davis PROCEDURE: Preprocedure preliminary ultrasound imaging demonstrates large volume ascites. The procedure was discussed with the patient. The risks, complications, benefits, and alternatives we re discussed and any questions were answered. Informed consent was obtained. The patient was placed s upine on the ultrasound table and prepped and draped in the usual sterile fashion. All elements of maximal barrier technique were utilized. Under ultrasound guidance, access into the left lower quadrant was obtained with a 5 Romansh one-step centesis catheter. Approximately 7.2 liters of clear serous fluid was removed. Catheter was removed and sterile bandage was applied. The patient was stable throughout the procedure and remained stable upon discharge from Department of Radiology. IMPRESSION: Successful ultrasound-guided paracentesis, with removal of 7.2 liters of clear serous fluid.
== END 2020-09-22 11:09 | disposition home or self-care (01) ==
LOC: RADPROMAIN 08:03
PROVIDERS: ATTEND Internal Medicine Gastroenterology
DX: R18.8 Other ascites (principal)
CPT/HCPCS: 82565; 82947; 85049; 85610; 36415; 49083; P9047

== ENCOUNTER 2020-09-30 08:33 | Day surgery (SDC) | payer MEDICARE ==
[2020-09-30 09:01] LABS: Mean Platelet Volume 11.1
[2020-09-30 09:08] LABS: Platelet Count 51 k/uL (150-450)
[2020-09-30 09:10] LABS: INR 1.2 (<1.2); Prothrombin Time 11.8 sec (9.0-12.0)
[2020-09-30] MEDS: ALBUMIN HUMAN 25% 50 ML in EMPTY BAG 1 BAG IVPB SCH ×4 (09:31→10:35)
[2020-09-30 09:41] VITALS: RESP 18; TEMP 97.8
[2020-09-30 15:15] VITALS: BP 116/56; PULSE 76
--- NOTE | 2020-09-30 16:46 | US ---
EXAMINATION TYPE: US paracentesis abd w/image DATE OF EXAM: 09/30/2020 COMPARISON: NONE HISTORY: Ascites. PROCEDURE: Maximal barrier technique was utilized. The skin overlying a suitable pocket of fluid was localized with ultrasound and the overlying skin was prepped and draped. Ultrasound was utilized with sterile technique. Lidocaine was used for local anesthesia and a skin jose made with a scalpel. Catheter was advanced under direct ultrasound guidance into a suitable pocket of fluid and approximately 7.4 liter s of serous fluid were removed. Catheter was withdrawn and hemostasis achieved. There is no immedia te complication; the patient is discharged in stable condition. IMPRESSION: STATUS POST ULTRASOUND GUIDED PARACENTESIS FOR PALLIATION OF ASCITES. THIS PROCEDURE WA S PERFORMED BY THE UNDERSIGNED.
== END 2020-09-30 11:47 | disposition home or self-care (01) ==
LOC: RADPROMAIN 08:33
PROVIDERS: ATTEND Internal Medicine Gastroenterology
DX: R18.8 Other ascites (principal)
CPT/HCPCS: 82565; 82947; 85049; 85610; 36415; 49083; P9047

== ENCOUNTER → 2020-10-04 | Outpatient (CLI) | payer MEDICARE ==
--- NOTE | 2020-10-04 10:57 | XR ---
EXAMINATION TYPE: XR chest 2V DATE OF EXAM: 10/04/2020 COMPARISON: 08/03/2020 TECHNIQUE: PA and lateral views submitted. HISTORY: Cough FINDINGS: The lungs are clear and there is no pneumothorax, pleural effusion, or focal pneumonia. Slightly pr ominent interstitium. Arthropathy of the shoulders greater on the right. Heart size normal. Atheroscl erotic change aorta. IMPRESSION: 1. Correlate for bronchitis or interstitial pneumonitis
== END | disposition home or self-care (01) ==
LOC: RADXRMAIN 08:47
PROVIDERS: ATTEND Family Medicine
DX: R06.09 Other forms of dyspnea (principal)
CPT/HCPCS: 71046

== ENCOUNTER 2020-10-07 08:32 | Day surgery (SDC) | payer MEDICARE ==
[2020-10-07 09:10] LABS: Mean Platelet Volume 9.7
[2020-10-07 09:20] LABS: INR 1.2 (<1.2); Prothrombin Time 11.7 sec (9.0-12.0)
[2020-10-07 09:24] LABS: Platelet Count 48 k/uL (150-450)
[2020-10-07] MEDS: ALBUMIN HUMAN 25% 50 ML in EMPTY BAG 1 BAG IVPB SCH ×4 (09:33→12:02)
[2020-10-07 09:39] VITALS: RESP 16
[2020-10-07 11:19] VITALS: TEMP 98.1
[2020-10-07 12:06] VITALS: BP 119/64; PULSE 84
--- NOTE | 2020-10-07 13:10 | US ---
Ultrasound-guided paracentesis. DATE OF EXAM: 10/07/2020 CLINICAL HISTORY: Ascites The procedure was discussed with the patient. The risks, complications, benefits, and alternatives we re discussed and any questions were answered. Informed consent was obtained. The patient was placed s upine on the ultrasound table and prepped and draped in the usual sterile fashion. All elements of maximal barrier technique were utilized. Under ultrasound guidance, access into the right lower quadrant was obtained, via the paracentesis catheter system and direct ultrasound guidanc e. Approximately 6.75 liters of straw-colored fluid was removed. The patient was stable throughout the p rocedure and remained stable upon discharge from Department of Radiology. IMPRESSION: Successful paracentesis under ultrasound guidance.
== END 2020-10-07 12:06 | disposition home or self-care (01) ==
LOC: RADPROMAIN 08:32
PROVIDERS: ATTEND Internal Medicine Gastroenterology
DX: R18.8 Other ascites (principal)
CPT/HCPCS: 82565; 82947; 85049; 85610; 49083; P9073; P9047

== ENCOUNTER → 2020-10-11 | Outpatient (CLI) | payer MEDICARE ==
--- NOTE | 2020-10-11 10:07 | US ---
EXAMINATION TYPE: US kidneys/renal and bladder DATE OF EXAM: 10/11/2020 COMPARISON: CLINICAL HISTORY: N18.30 chronic kidney ds, stage 3. Weekly paracentesis patient. Abnormal labs. EXAM MEASUREMENTS: Right Kidney: 9.3 x 3.7 x 3.8 cm Left Kidney: 9.6 x 3.4 x 3.8 cm Right Kidney: No hydronephrosis or masses seen Left Kidney: No hydronephrosis or masses seen Bladder: distended, wnl, limited due to ascites Bilateral Jets not seen There is no evidence for hydronephrosis at this point in time. No nephrolithiasis is seen. No amanda s are identified. The urinary bladder is anechoic. Bilateral ureteral jets are seen. IMPRESSION: Ascites otherwise unremarkable study.
== END | disposition home or self-care (01) ==
LOC: RADUSWWP 09:42
PROVIDERS: ATTEND Internal Medicine
DX: R18.8 Other ascites (principal); N18.30 Chronic kidney disease, stage 3 unspecified
CPT/HCPCS: 76770

== ENCOUNTER 2020-10-14 08:32 | Day surgery (SDC) | payer MEDICARE ==
[2020-10-14 09:04] LABS: Mean Platelet Volume 10.2
[2020-10-14 09:10] LABS: Platelet Count 40 k/uL (150-450)
[2020-10-14 09:16] LABS: INR 1.1 (<1.2); Prothrombin Time 11.1 sec (9.0-12.0)
[2020-10-14 09:17] VITALS: RESP 16
[2020-10-14] MEDS: ALBUMIN HUMAN 25% 50 ML in EMPTY BAG 1 BAG IVPB SCH ×4 (10:44→11:35)
[2020-10-14 11:34] VITALS: BP 111/59; PULSE 89; TEMP 98.1
--- NOTE | 2020-10-14 12:03 | US ---
Ultrasound-guided paracentesis. DATE OF EXAM: 10/14/2020 CLINICAL HISTORY: Ascites The procedure was discussed with the patient. The risks, complications, benefits, and alternatives we re discussed and any questions were answered. Informed consent was obtained. The patient was placed s upine on the ultrasound table and prepped and draped in the usual sterile fashion. All elements of maximal barrier technique were utilized. Under ultrasound guidance, access into the right lower quadrant was obtained, via the paracentesis catheter system and direct ultrasound guidanc e. Approximately 7.7 liters of straw-colored fluid was removed. The patient was stable throughout the pr ocedure and remained stable upon discharge from Department of Radiology. IMPRESSION: Successful paracentesis under ultrasound guidance.
== END 2020-10-14 11:57 | disposition home or self-care (01) ==
LOC: RADPROMAIN 08:32
PROVIDERS: ATTEND Internal Medicine Gastroenterology
DX: R18.8 Other ascites (principal)
CPT/HCPCS: 82565; 82947; 85049; 85610; 36415; 49083; P9035; P9047

== ENCOUNTER 2020-10-20 08:28 | Day surgery (SDC) | payer MEDICARE ==
[2020-10-20] MEDS: ALBUMIN HUMAN 25% 50 ML in EMPTY BAG 1 BAG IVPB SCH ×4 (08:56→10:50)
[2020-10-20 09:00] LABS: Mean Platelet Volume 10.8
[2020-10-20 09:05] LABS: Platelet Count 35 k/uL (150-450)
[2020-10-20 09:10] LABS: INR 1.1 (<1.2); Prothrombin Time 11.4 sec (9.0-12.0)
[2020-10-20 10:43] VITALS: TEMP 97.5
[2020-10-20 11:35] VITALS: BP 111/73; PULSE 85; RESP 18
--- NOTE | 2020-10-20 13:31 | US ---
Ultrasound-guided paracentesis. DATE OF EXAM: 10/20/2020 CLINICAL HISTORY: Ascites The procedure was discussed with the patient. The risks, complications, benefits, and alternatives we re discussed and any questions were answered. Informed consent was obtained. The patient was placed s upine on the ultrasound table and prepped and draped in the usual sterile fashion. All elements of maximal barrier technique were utilized. Under ultrasound guidance, access into the left lower quadrant was obtained, via the paracentesis catheter system and direct ultrasound guidance . Approximately 7.55 liters of straw-colored fluid was removed. The patient was stable throughout the p rocedure and remained stable upon discharge from Department of Radiology. IMPRESSION: Successful paracentesis under ultrasound guidance.
== END 2020-10-20 11:36 | disposition home or self-care (01) ==
LOC: RADPROMAIN 08:28
PROVIDERS: ATTEND Internal Medicine Gastroenterology
DX: R18.8 Other ascites (principal)
CPT/HCPCS: 82565; 82947; 85049; 85610; 36415; 49083; P9073; P9047

== ENCOUNTER 2020-10-28 08:30 | Day surgery (SDC) | payer MEDICARE ==
[2020-10-28 08:43] VITALS: RESP 16; TEMP 97.9
[2020-10-28 09:04] LABS: Mean Platelet Volume 11.2
[2020-10-28 09:07] LABS: Platelet Count 40 k/uL (150-450)
[2020-10-28 09:09] LABS: INR 1.2 (<1.2); Prothrombin Time 11.7 sec (9.0-12.0)
[2020-10-28] MEDS: ALBUMIN HUMAN 25% 50 ML in EMPTY BAG 1 BAG IVPB SCH ×4 (09:17→10:31)
[2020-10-28 11:46] VITALS: BP 140/74; PULSE 90
--- NOTE | 2020-10-28 15:15 | US ---
EXAMINATION TYPE: US paracentesis abd w/image DATE OF EXAM: 10/28/2020 COMPARISON: NONE HISTORY: Ascites. PROCEDURE: Maximal barrier technique was utilized. The skin overlying a suitable pocket of fluid was localized with ultrasound and the overlying skin was prepped and draped. Ultrasound was utilized with sterile technique. Lidocaine was used for local anesthesia and a skin jose made with a scalpel. Catheter was advanced under direct ultrasound guidance into a suitable pocket of fluid and approximately 8.2 liter s of serous fluid were removed. Catheter was withdrawn and hemostasis achieved. There is no immedia te complication; the patient is discharged in stable condition. IMPRESSION: STATUS POST ULTRASOUND GUIDED PARACENTESIS FOR PALLIATION OF ASCITES. THIS PROCEDURE WA S PERFORMED BY THE UNDERSIGNED.
== END 2020-10-28 12:00 | disposition home or self-care (01) ==
LOC: RADPROMAIN 08:30
PROVIDERS: ATTEND Internal Medicine Gastroenterology
DX: R18.8 Other ascites (principal)
CPT/HCPCS: 82565; 82947; 85049; 85610; 36415; 49083; P9047

== ENCOUNTER 2020-11-04 08:29 | Day surgery (SDC) | payer MEDICARE ==
[2020-11-04 09:18] LABS: INR 1.1 (<1.2); Prothrombin Time 11.6 sec (9.0-12.0)
[2020-11-04 09:19] LABS: Basophils % (A) 1 %; Eosinophils # (A) 0.3 k/uL (0-0.7); Eosinophils % (A) 7 %; HCT 31.3 % (34.0-46.0); HGB 9.9 gm/dL (11.4-16.0); Lymphocytes # (A) 0.4 k/uL (1.0-4.8); Lymphocytes % (A) 9 %; MCH 31.1 pg (25.0-35.0); MCHC 31.7 g/dL (31.0-37.0); MCV 98.1 fL (80.0-100.0); Monocytes # (A) 0.3 k/uL (0-1.0); Monocytes % (A) 8 %; Neutrophils # (A) 2.8 k/uL (1.3-7.7); Neutrophils % (A) 72 %; RDW 15.2 % (11.5-15.5); WBC 3.8 k/uL (3.8-10.6)
[2020-11-04 09:22] LABS: Platelet Count 47 k/uL (150-450)
[2020-11-04 09:26] LABS: Albumin 3.3 g/dL (3.5-5.0); Calcium 8.4 mg/dL (8.4-10.2); Total Bilirubin 1.1 mg/dL (0.2-1.3); Total Protein 5.9 g/dL (6.3-8.2)
[2020-11-04 09:27] LABS: Potassium 4.9 mmol/L (3.5-5.1)
[2020-11-04 10:02] VITALS: RESP 16; TEMP 98.1
[2020-11-04] MEDS: ALBUMIN HUMAN 25% 50 ML in EMPTY BAG 1 BAG IVPB SCH ×4 (11:03→12:15)
[2020-11-04 12:19] VITALS: BP 114/64; PULSE 84
--- NOTE | 2020-11-04 12:34 | US ---
Ultrasound-guided paracentesis. DATE OF EXAM: 11/04/2020 CLINICAL HISTORY: Ascites The procedure was discussed with the patient. The risks, complications, benefits, and alternatives we re discussed and any questions were answered. Informed consent was obtained. The patient was placed s upine on the ultrasound table and prepped and draped in the usual sterile fashion. All elements of maximal barrier technique were utilized. Under ultrasound guidance, access into the left lower quadrant was obtained, via the paracentesis catheter system and direct ultrasound guidance . Approximately 7.4 liters of straw-colored fluid was removed. The patient was stable throughout the pr ocedure and remained stable upon discharge from Department of Radiology. IMPRESSION: Successful paracentesis under ultrasound guidance.
[2020-11-04 18:07] LABS: Hemoglobin A1C 6.5 % (4.0-6.0)
[2020-11-04 20:54] LABS: Microalbumin Creatinine Ratio <30 mg/g Creat (0-30); Urine Creatinine 56.6 mg/dL
== END 2020-11-04 12:13 | disposition home or self-care (01) ==
LOC: RADPROMAIN 08:29
PROVIDERS: ATTEND Internal Medicine Gastroenterology
DX: R18.8 Other ascites (principal)
CPT/HCPCS: 80061; 80053; 84443; 85025; 85610; 82043; 82570; 83036; 36415; 49083; P9035; P9047

== ENCOUNTER 2020-11-11 09:00 | Day surgery (SDC) | payer MEDICARE ==
[2020-11-11 09:26] LABS: Mean Platelet Volume 10.9
[2020-11-11 09:31] LABS: Platelet Count 36 k/uL (150-450)
[2020-11-11 09:32] LABS: INR 1.1 (<1.2); Prothrombin Time 11.4 sec (9.0-12.0)
[2020-11-11] MEDS: ALBUMIN HUMAN 25% 50 ML in EMPTY BAG 1 BAG IVPB SCH ×4 (09:59→12:00)
[2020-11-11 10:09] VITALS: RESP 18
[2020-11-11 12:18] VITALS: BP 123/60; PULSE 94; TEMP 98
--- NOTE | 2020-11-11 12:52 | US ---
Ultrasound-guided paracentesis. DATE OF EXAM: 11/11/2020 CLINICAL HISTORY: Ascites The procedure was discussed with the patient. The risks, complications, benefits, and alternatives we re discussed and any questions were answered. Informed consent was obtained. The patient was placed s upine on the ultrasound table and prepped and draped in the usual sterile fashion. All elements of maximal barrier technique were utilized. Under ultrasound guidance, access into the right lower quadrant was obtained, via the paracentesis catheter system and direct ultrasound guidanc e. Approximately 8 liters of straw-colored fluid was removed. The patient was stable throughout the proc edure and remained stable upon discharge from Department of Radiology. IMPRESSION: Successful paracentesis under ultrasound guidance.
== END 2020-11-11 12:40 | disposition home or self-care (01) ==
LOC: RADPROMAIN 09:00
PROVIDERS: ATTEND Internal Medicine Gastroenterology
DX: R18.8 Other ascites (principal)
CPT/HCPCS: 82565; 82947; 85049; 85610; 36415; 49083; P9035; P9047

== ENCOUNTER 2020-11-18 08:51 | Day surgery (SDC) | payer MEDICARE ==
[2020-11-18 09:26] LABS: Mean Platelet Volume 10.1
[2020-11-18 09:30] LABS: INR 1.1 (<1.2); Prothrombin Time 11.3 sec (9.0-12.0)
[2020-11-18] MEDS: ALBUMIN HUMAN 25% 50 ML in EMPTY BAG 1 BAG IVPB SCH ×4 (09:30→12:04)
[2020-11-18 09:32] LABS: Platelet Count 46 k/uL (150-450)
[2020-11-18 11:34] VITALS: RESP 16
[2020-11-18 11:55] VITALS: TEMP 97.8
[2020-11-18 12:27] VITALS: BP 120/76; PULSE 80
--- NOTE | 2020-11-18 13:53 | US ---
Ultrasound-guided paracentesis. DATE OF EXAM: 11/18/2020 CLINICAL HISTORY: Ascites The procedure was discussed with the patient. The risks, complications, benefits, and alternatives we re discussed and any questions were answered. Informed consent was obtained. The patient was placed s upine on the ultrasound table and prepped and draped in the usual sterile fashion. All elements of maximal barrier technique were utilized. Under ultrasound guidance, access into the left lower quadrant was obtained, via the paracentesis catheter system and direct ultrasound guidance . Approximately 7.8 liters of straw-colored fluid was removed. The patient was stable throughout the pr ocedure and remained stable upon discharge from Department of Radiology. IMPRESSION: Successful paracentesis under ultrasound guidance.
== END 2020-11-18 12:30 | disposition home or self-care (01) ==
LOC: RADPROMAIN 08:51
PROVIDERS: ATTEND Internal Medicine Gastroenterology
DX: R18.8 Other ascites (principal)
CPT/HCPCS: 82565; 85049; 85610; 36415; 49083; P9035; P9047

== ENCOUNTER 2020-11-25 08:50 | Day surgery (SDC) | payer MEDICARE ==
[2020-11-25 09:21] VITALS: TEMP 98
[2020-11-25] MEDS: ALBUMIN HUMAN 25% 50 ML in EMPTY BAG 1 BAG IVPB SCH ×4 (09:21→10:50)
[2020-11-25 09:28] LABS: Basophils % (A) 1 %; Eosinophils # (A) 0.2 k/uL (0-0.7); Eosinophils % (A) 5 %; HCT 30.6 % (34.0-46.0); HGB 10.3 gm/dL (11.4-16.0); Lymphocytes # (A) 0.3 k/uL (1.0-4.8); Lymphocytes % (A) 9 %; MCH 32.7 pg (25.0-35.0); MCHC 33.5 g/dL (31.0-37.0); MCV 97.4 fL (80.0-100.0); Mean Platelet Volume 10.4; Monocytes # (A) 0.2 k/uL (0-1.0); Monocytes % (A) 6 %; Neutrophils # (A) 2.5 k/uL (1.3-7.7); Neutrophils % (A) 78 %; RBC 3.14 m/uL (3.80-5.40); RDW 14.8 % (11.5-15.5); WBC 3.2 k/uL (3.8-10.6)
[2020-11-25 09:30] LABS: Platelet Count 36 k/uL (150-450)
[2020-11-25 09:33] LABS: INR 1.1 (<1.2); Prothrombin Time 11.9 sec (9.0-12.0)
[2020-11-25 09:40] LABS: Calcium 8.6 mg/dL (8.4-10.2); Potassium 5.2 mmol/L (3.5-5.1)
[2020-11-25 11:41] VITALS: BP 124/74; PULSE 82; RESP 16
--- NOTE | 2020-11-25 13:14 | US ---
EXAMINATION TYPE: US paracentesis abd w/image DATE OF EXAM: 11/25/2020 COMPARISON: NONE HISTORY: Ascites. PROCEDURE: Maximal barrier technique was utilized. The skin overlying a suitable pocket of fluid was localized with ultrasound and the overlying skin was prepped and draped. Ultrasound was utilized with sterile technique. Lidocaine was used for local anesthesia and a skin jose made with a scalpel. Catheter was advanced under direct ultrasound guidance into a suitable pocket of fluid and approximately 8.4 liter s of serous fluid were removed. Catheter was withdrawn and hemostasis achieved. There is no immedia te complication; the patient is discharged in stable condition. IMPRESSION: STATUS POST ULTRASOUND GUIDED PARACENTESIS FOR PALLIATION OF ASCITES. THIS PROCEDURE WA S PERFORMED BY THE UNDERSIGNED.
[2020-11-25 14:43] LABS: Hepatitis A Antibody IgM Non-Reactive (Non-Reactive); Hepatitis B Core IgM Non-Reactive (Non-Reactive); Hepatitis B Surface Antigen Non-Reactive (Non-Reactive); Hepatitis C IgG Antibody Non-Reactive (Non-Reactive)
== END 2020-11-25 11:43 | disposition home or self-care (01) ==
LOC: RADPROMAIN 08:50
PROVIDERS: ATTEND Internal Medicine Gastroenterology
DX: R18.8 Other ascites (principal); K75.81 Nonalcoholic steatohepatitis (NASH)
CPT/HCPCS: 80048; 80074; 85025; 85610; 36415; 49083; P9047

== ENCOUNTER 2020-11-26 07:04 | Day surgery (SDC) | payer MEDICARE ==
[2020-11-24 10:53] VITALS: BMI 24.5
[2020-11-26] MEDS ORDERED: LACTATED RINGERS 1,000 ML IV ONE (07:35)
[2020-11-26 07:37] VITALS: TEMP 98.3
[2020-11-26 07:37] LABS: Glucose,Whole Blood 91 mg/dL (75-99)
[2020-11-26] MEDS ORDERED: PROPOFOL 10 MG/ML 20 ML VIAL IV ONE (07:51)
[2020-11-26] MEDS ORDERED: LIDOCAINE 1% INJ 10MG/ML (20 ML MDV) ONE (07:51)
--- NOTE | 2020-11-26 08:03 | P.PCN ---
Date of Procedure: 11/26/20 Procedure(s) Performed: BRIEF HISTORY: Patient is a 65-year-old, pleasant, female with history of liver cirrhosis and esophageal varices is scheduled for an upper endoscopy as a part of follow-up of esophageal varices and possible variceal ligation. Last EGD was performed 6 months ago.. PROCEDURE PERFORMED: Esophagogastroduodenoscopy with variceal ligation. PREOPERATIVE DIAGNOSIS: Follow-up esophageal varices. IV sedation per anesthesia. PROCEDURE: After informed consent was obtained, the patient was brought into the endoscopy unit. IV sedation was administered by Anesthesia under continuous monitoring. Initially the Olympus GIF-140 video endoscope was inserted into the mouth. Esophagus intubated without any difficulty. It was gradually advanced into the stomach and duodenum and carefully examined. The bulb and the second part of the duodenum appeared normal. The scope at this time was withdrawn to the stomach, adequately insufflated with air, and upon careful examination, mucosa of the antrum, appeared normal. There was evidence of severe portal hypertensive gastropathy with mucosal erythema and congestion involving the body, cardia and the fundus. The scope was then withdrawn into the esophagus. The GE junction was located at 39 cm from the incisors. There were large distal esophageal varices and small mid esophageal varices seen with evidence of scarring from previous variceal ligation. At this time the scope was withdrawn and the esophageal achalasia ligation equipment was introduced onto the tip of the scope and esophagus intubated without any difficulty. It was gradually advanced to the distal esophagus. Using suction but of 6 bands were deployed in the distal and mid esophagus. Patient tolerated the procedure well. IMPRESSION: 1. Small to large mid and distal esophageal varices respectively status post variceal ligation as described above. 2. Severe portal hypertensive gastropathy involving the fundus of the stomach. RECOMMENDATIONS: The findings of this examination were discussed with the patient as well as a family. She will remain on a soft diet today. Plan a repeat upper endoscopy with variceal ligation in 3-6 months..
[2020-11-26] MEDS ORDERED: ONDANSETRON 4 MG/2 ML VIAL ONE (08:09)
[2020-11-26] MEDS ORDERED: ONDANSETRON 4 MG/2 ML VIAL IVP ONE (08:11)
[2020-11-26 08:14] VITALS: RESP 16
[2020-11-26 08:28] VITALS: BP 119/56; PULSE 85
== END 2020-11-26 08:38 | disposition home or self-care (01) ==
LOC: ORWHC2ENDO 07:04
PROVIDERS: ATTEND Internal Medicine Gastroenterology
DX: I85.10 Secondary esophageal varices without bleeding (principal); K74.60 Unspecified cirrhosis of liver; K76.6 Portal hypertension; K31.89 Other diseases of stomach and duodenum; I25.10 Atherosclerotic heart disease of native coronary artery without angina pectoris; I11.0 Hypertensive heart disease with heart failure; E78.5 Hyperlipidemia, unspecified; I50.9 Heart failure, unspecified; D61.818 Other pancytopenia; E11.9 Type 2 diabetes mellitus without complications; Z79.4 Long term (current) use of insulin; Z96.41 Presence of insulin pump (external) (internal); R56.9 Unspecified convulsions; M79.7 Fibromyalgia; K21.9 Gastro-esophageal reflux disease without esophagitis; Z98.890 Other specified postprocedural states; Z90.89 Acquired absence of other organs; Z79.899 Other long term (current) drug therapy; Z88.0 Allergy status to penicillin; Z88.2 Allergy status to sulfonamides; Z91.048 Other nonmedicinal substance allergy status; Z88.1 Allergy status to other antibiotic agents
CPT/HCPCS: 43244; J2405; J2001; J2704

== ENCOUNTER 2020-12-01 08:25 | Day surgery (SDC) | payer MEDICARE ==
[2020-12-01 09:19] VITALS: TEMP 98.1
[2020-12-01] MEDS: ALBUMIN HUMAN 25% 50 ML in EMPTY BAG 1 BAG IVPB SCH ×4 (09:34→10:40)
[2020-12-01 09:38] LABS: Albumin 3.3 g/dL (3.5-5.0); Bilirubin, Delta 0.2 mg/dL (0.0-0.2); Bilirubin,Unconjugated 1.2 mg/dL (0.0-1.1); Calcium 8.4 mg/dL (8.4-10.2); Potassium 4.9 mmol/L (3.5-5.1); Total Bilirubin 1.4 mg/dL (0.2-1.3); Total Protein 5.8 g/dL (6.3-8.2)
[2020-12-01 09:41] LABS: HCT 30.9 % (34.0-46.0); HGB 10.3 gm/dL (11.4-16.0); INR 1.1 (<1.2); MCH 31.9 pg (25.0-35.0); MCHC 33.1 g/dL (31.0-37.0); MCV 96.4 fL (80.0-100.0); Mean Platelet Volume 10.4; Prothrombin Time 11.5 sec (9.0-12.0); RBC 3.21 m/uL (3.80-5.40); RDW 15.3 % (11.5-15.5); WBC 3.9 k/uL (3.8-10.6)
[2020-12-01 09:42] LABS: Platelet Count 53 k/uL (150-450)
[2020-12-01 12:14] VITALS: BP 114/74; PULSE 64; RESP 16
--- NOTE | 2020-12-01 13:55 | US ---
EXAMINATION TYPE: US paracentesis abd w/image DATE OF EXAM: 12/01/2020 COMPARISON: NONE HISTORY: Ascites. PROCEDURE: Maximal barrier technique was utilized. The skin overlying a suitable pocket of fluid was localized with ultrasound and the overlying skin was prepped and draped. Ultrasound was utilized with sterile technique. Lidocaine was used for local anesthesia and a skin jose made with a scalpel. Catheter was advanced under direct ultrasound guidance into a suitable pocket of fluid and approximately 6.8 liter s of serous fluid were removed. Catheter was withdrawn and hemostasis achieved. There is no immedia te complication; the patient is discharged in stable condition. IMPRESSION: STATUS POST ULTRASOUND GUIDED PARACENTESIS FOR PALLIATION OF ASCITES. THIS PROCEDURE WA S PERFORMED BY THE UNDERSIGNED.
== END 2020-12-01 11:45 | disposition home or self-care (01) ==
LOC: RADPROMAIN 08:25
PROVIDERS: ATTEND Internal Medicine Gastroenterology
DX: R18.8 Other ascites (principal)
CPT/HCPCS: 80048; 80076; 85027; 85049; 85610; 36415; 49083; P9047

== ENCOUNTER 2020-12-08 08:31 | Day surgery (SDC) | payer MEDICARE ==
[2020-12-08] MEDS: ALBUMIN HUMAN 25% 50 ML in EMPTY BAG 1 BAG IVPB SCH ×4 (09:08→11:46)
[2020-12-08 09:15] LABS: Platelet Count 39 k/uL (150-450)
[2020-12-08 09:20] LABS: INR 1.2 (<1.2); Prothrombin Time 12.2 sec (9.0-12.0)
[2020-12-08 10:34] VITALS: RESP 16
[2020-12-08 11:10] VITALS: TEMP 97.8
[2020-12-08 11:47] VITALS: BP 115/59; PULSE 81
--- NOTE | 2020-12-08 13:14 | US ---
Ultrasound-guided paracentesis. DATE OF EXAM: 12/08/2020 CLINICAL HISTORY: Ascites The procedure was discussed with the patient. The risks, complications, benefits, and alternatives we re discussed and any questions were answered. Informed consent was obtained. The patient was placed s upine on the ultrasound table and prepped and draped in the usual sterile fashion. All elements of maximal barrier technique were utilized. Under ultrasound guidance, access into the left lower quadrant was obtained, via the paracentesis catheter system and direct ultrasound guidance . Approximately 7.2 liters of straw-colored fluid was removed. The patient was stable throughout the pr ocedure and remained stable upon discharge from Department of Radiology. IMPRESSION: Successful paracentesis under ultrasound guidance.
== END 2020-12-08 11:50 | disposition home or self-care (01) ==
LOC: RADPROMAIN 08:31
PROVIDERS: ATTEND Internal Medicine Gastroenterology
DX: R18.8 Other ascites (principal)
CPT/HCPCS: 82565; 82947; 85049; 85610; 36415; 49083; P9035; P9047

== ENCOUNTER 2020-12-15 08:11 | Day surgery (SDC) | payer MEDICARE ==
[2020-12-15 08:46] LABS: Mean Platelet Volume 9.6
[2020-12-15 08:52] LABS: Platelet Count 45 k/uL (150-450)
[2020-12-15 08:58] LABS: INR 1.1 (<1.2); Prothrombin Time 11.9 sec (9.0-12.0)
[2020-12-15] MEDS: ALBUMIN HUMAN 25% 50 ML in EMPTY BAG 1 BAG IVPB SCH ×4 (09:01→11:08)
[2020-12-15 10:59] VITALS: RESP 16; TEMP 98.1
[2020-12-15 11:11] VITALS: BP 95/57; PULSE 90
--- NOTE | 2020-12-15 11:52 | US ---
Ultrasound-guided paracentesis. DATE OF EXAM: 12/15/2020 CLINICAL HISTORY: Ascites The procedure was discussed with the patient. The risks, complications, benefits, and alternatives we re discussed and any questions were answered. Informed consent was obtained. The patient was placed s upine on the ultrasound table and prepped and draped in the usual sterile fashion. All elements of maximal barrier technique were utilized. Under ultrasound guidance, access into the right lower quadrant was obtained, via the paracentesis catheter system and direct ultrasound guidanc e. Approximately 6.2 liters of straw-colored fluid was removed. The patient was stable throughout the pr ocedure and remained stable upon discharge from Department of Radiology. IMPRESSION: Successful paracentesis under ultrasound guidance.
== END 2020-12-15 11:20 | disposition home or self-care (01) ==
LOC: RADPROMAIN 08:11
PROVIDERS: ATTEND Internal Medicine Gastroenterology
DX: R18.8 Other ascites (principal)
CPT/HCPCS: 82565; 82947; 85049; 85610; 36430; 36415; 49083; P9035; P9047

== ENCOUNTER 2020-12-22 08:24 | Day surgery (SDC) | payer MEDICARE ==
[2020-12-22 08:36] VITALS: RESP 16; TEMP 97.8
[2020-12-22 08:57] LABS: Mean Platelet Volume 11.6
[2020-12-22 09:00] LABS: Platelet Count 37 k/uL (150-450)
[2020-12-22 09:02] LABS: INR 1.1 (<1.2); Prothrombin Time 11.9 sec (9.0-12.0)
[2020-12-22] MEDS: ALBUMIN HUMAN 25% 50 ML in EMPTY BAG 1 BAG IVPB SCH ×4 (10:19→11:17)
[2020-12-22 11:15] VITALS: BP 120/66; PULSE 83
--- NOTE | 2020-12-22 12:55 | US ---
EXAMINATION TYPE: US paracentesis abd w/image DATE OF EXAM: 12/22/2020 COMPARISON: NONE HISTORY: Ascites. PROCEDURE: Maximal barrier technique was utilized. The skin overlying a suitable pocket of fluid was localized with ultrasound and the overlying skin was prepped and draped. Ultrasound was utilized with sterile technique. Lidocaine was used for local anesthesia and a skin jose made with a scalpel. Catheter was advanced under direct ultrasound guidance into a suitable pocket of fluid and approximately 6.6 liter s of serous fluid were removed. Catheter was withdrawn and hemostasis achieved. There is no immedia te complication; the patient is discharged in stable condition. IMPRESSION: STATUS POST ULTRASOUND GUIDED PARACENTESIS FOR PALLIATION OF ASCITES. THIS PROCEDURE WA S PERFORMED BY THE UNDERSIGNED.
== END 2020-12-22 11:30 | disposition home or self-care (01) ==
LOC: RADPROMAIN 08:24
PROVIDERS: ATTEND Internal Medicine Gastroenterology
DX: R18.8 Other ascites (principal)
CPT/HCPCS: 82565; 82947; 85049; 85610; 36415; 49083; P9047

== ENCOUNTER 2020-12-29 08:16 | Day surgery (SDC) | payer MEDICARE ==
[2020-12-29] MEDS: ALBUMIN HUMAN 25% 50 ML in EMPTY BAG 1 BAG IVPB SCH ×4 (08:40→10:35)
[2020-12-29 08:46] VITALS: TEMP 97.8
[2020-12-29 08:47] LABS: INR 1.1 (<1.2); Prothrombin Time 11.7 sec (9.0-12.0)
[2020-12-29 08:56] LABS: Platelet Count 40 k/uL (150-450)
[2020-12-29 10:00] VITALS: RESP 18
[2020-12-29 10:39] VITALS: BP 120/58; PULSE 88
--- NOTE | 2020-12-29 13:03 | US ---
EXAMINATION TYPE: US paracentesis abd w/image DATE OF EXAM: 12/29/2020 COMPARISON: NONE HISTORY: Ascites. PROCEDURE: Maximal barrier technique was utilized. The skin overlying a suitable pocket of fluid was localized with ultrasound and the overlying skin was prepped and draped. Ultrasound was utilized with sterile technique. Lidocaine was used for local anesthesia and a skin jose made with a scalpel. Catheter was advanced under direct ultrasound guidance into a suitable pocket of fluid and approximately 6.6 liter s of serous fluid were removed. Catheter was withdrawn and hemostasis achieved. There is no immedia te complication; the patient is discharged in stable condition. IMPRESSION: STATUS POST ULTRASOUND GUIDED PARACENTESIS FOR PALLIATION OF ASCITES. THIS PROCEDURE WA S PERFORMED BY THE UNDERSIGNED.
== END 2020-12-29 10:39 | disposition home or self-care (01) ==
LOC: RADPROMAIN 08:16
PROVIDERS: ATTEND Internal Medicine Gastroenterology
DX: R18.8 Other ascites (principal)
CPT/HCPCS: 82565; 82947; 85049; 85610; 36415; 49083; P9047

== ENCOUNTER 2021-01-05 08:23 | Day surgery (SDC) | payer MEDICARE ==
[2021-01-05 08:51] LABS: Mean Platelet Volume 10.9
[2021-01-05 08:53] LABS: Platelet Count 44 k/uL (150-450)
[2021-01-05 08:55] VITALS: TEMP 98.3
[2021-01-05] MEDS: ALBUMIN HUMAN 25% 50 ML in EMPTY BAG 1 BAG IVPB SCH ×4 (09:19→15:23)
[2021-01-05 11:34] VITALS: BP 106/53; PULSE 85; RESP 16
--- NOTE | 2021-01-05 12:04 | US ---
EXAMINATION TYPE: US paracentesis abd w/image DATE OF EXAM: 01/05/2021 COMPARISON: NONE HISTORY: Ascites. PROCEDURE: Maximal barrier technique was utilized. The skin overlying a suitable pocket of fluid was localized with ultrasound and the overlying skin was prepped and draped. Ultrasound was utilized with sterile technique. Lidocaine was used for local anesthesia and a skin jose made with a scalpel. Catheter was advanced under direct ultrasound guidance into a suitable pocket of fluid and approximately 6.6 liter s of serous fluid were removed. Catheter was withdrawn and hemostasis achieved. There is no immedia te complication; the patient is discharged in stable condition. IMPRESSION: STATUS POST ULTRASOUND GUIDED PARACENTESIS FOR PALLIATION OF ASCITES. THIS PROCEDURE WA S PERFORMED BY THE UNDERSIGNED.
== END 2021-01-05 11:34 | disposition home or self-care (01) ==
LOC: RADPROMAIN 08:23
PROVIDERS: ATTEND Internal Medicine Gastroenterology
DX: R18.8 Other ascites (principal)
CPT/HCPCS: 82565; 82947; 85049; 85610; 36415; 49083; P9047

== ENCOUNTER 2021-01-12 08:24 | Day surgery (SDC) | payer MEDICARE ==
[2021-01-12 09:01] LABS: Mean Platelet Volume 10.5
[2021-01-12] MEDS: ALBUMIN HUMAN 25% 50 ML in EMPTY BAG 1 BAG IVPB SCH ×4 (09:03→11:14)
[2021-01-12 09:14] LABS: Platelet Count 45 k/uL (150-450)
[2021-01-12 09:29] LABS: INR 1.1 (<1.2); Prothrombin Time 11.2 sec (9.0-12.0)
[2021-01-12 10:29] VITALS: RESP 16
[2021-01-12 10:36] VITALS: TEMP 87.7
[2021-01-12 11:16] VITALS: BP 125/63; PULSE 85
--- NOTE | 2021-01-12 13:48 | US ---
Ultrasound-guided paracentesis. DATE OF EXAM: 01/12/2021 CLINICAL HISTORY: Ascites The procedure was discussed with the patient. The risks, complications, benefits, and alternatives we re discussed and any questions were answered. Informed consent was obtained. The patient was placed s upine on the ultrasound table and prepped and draped in the usual sterile fashion. All elements of maximal barrier technique were utilized. Under ultrasound guidance, access into the right lower quadrant was obtained, via the paracentesis catheter system and direct ultrasound guidanc e. Approximately 7.5 liters of straw-colored fluid was removed. The patient was stable throughout the pr ocedure and remained stable upon discharge from Department of Radiology. IMPRESSION: Successful paracentesis under ultrasound guidance.
== END 2021-01-12 11:20 | disposition home or self-care (01) ==
LOC: RADPROMAIN 08:24
PROVIDERS: ATTEND Internal Medicine Gastroenterology
DX: R18.8 Other ascites (principal)
CPT/HCPCS: 82565; 82947; 85049; 85610; 36415; 49083; P9073; P9047

== ENCOUNTER 2021-01-19 08:30 | Day surgery (SDC) | payer MEDICARE ==
[2021-01-19] MEDS: ALBUMIN HUMAN 25% 50 ML in EMPTY BAG 1 BAG IVPB SCH ×3 (08:58→09:36)
[2021-01-19 09:04] LABS: Mean Platelet Volume 11.7
[2021-01-19 09:06] LABS: Platelet Count 44 k/uL (150-450)
[2021-01-19 09:11] VITALS: TEMP 98
[2021-01-19 09:15] LABS: Prothrombin Time 11.1 sec (9.0-12.0)
[2021-01-19 11:43] VITALS: RESP 20
[2021-01-19 11:50] VITALS: BP 106/64; PULSE 75
--- NOTE | 2021-01-20 12:22 | US ---
Ultrasound-guided paracentesis. DATE OF EXAM: 01/19/2021 CLINICAL HISTORY: Ascites The procedure was discussed with the patient. The risks, complications, benefits, and alternatives we re discussed and any questions were answered. Informed consent was obtained. The patient was placed s upine on the ultrasound table and prepped and draped in the usual sterile fashion. All elements of maximal barrier technique were utilized. Under ultrasound guidance, access into the right lower quadrant was obtained, via the paracentesis catheter system and direct ultrasound guidanc e. Approximately 4.5 liters of straw-colored fluid was removed. The patient was stable throughout the pr ocedure and remained stable upon discharge from Department of Radiology. IMPRESSION: Successful paracentesis under ultrasound guidance.
== END 2021-01-19 11:30 | disposition home or self-care (01) ==
LOC: RADPROMAIN 08:30
PROVIDERS: ATTEND Internal Medicine Gastroenterology
DX: R18.8 Other ascites (principal)
CPT/HCPCS: 82565; 82947; 85049; 85610; 36415; 49083; P9073; P9047

== ENCOUNTER 2021-01-26 08:23 | Day surgery (SDC) | payer MEDICARE ==
[2021-01-26 09:02] VITALS: RESP 16; TEMP 98.1
[2021-01-26 09:02] LABS: Mean Platelet Volume 10.2
[2021-01-26 09:03] LABS: Platelet Count 59 k/uL (150-450)
[2021-01-26] MEDS: ALBUMIN HUMAN 25% 50 ML in EMPTY BAG 1 BAG IVPB SCH ×4 (09:12→11:36)
[2021-01-26 09:16] LABS: INR 1.2 (<1.2)
[2021-01-26 11:34] VITALS: BP 111/56; PULSE 65
--- NOTE | 2021-01-26 13:13 | US ---
EXAMINATION TYPE: US paracentesis abd w/image DATE OF EXAM: 01/26/2021 COMPARISON: NONE HISTORY: Ascites. PROCEDURE: Maximal barrier technique was utilized. The skin overlying a suitable pocket of fluid was localized with ultrasound and the overlying skin was prepped and draped. Ultrasound was utilized with sterile technique. Lidocaine was used for local anesthesia and a skin jose made with a scalpel. Catheter was advanced under direct ultrasound guidance into a suitable pocket of fluid and approximately 6.2 liter s of serous fluid were removed. Catheter was withdrawn and hemostasis achieved. There is no immedia te complication; the patient is discharged in stable condition. IMPRESSION: STATUS POST ULTRASOUND GUIDED PARACENTESIS FOR PALLIATION OF ASCITES. THIS PROCEDURE WA S PERFORMED BY THE UNDERSIGNED.
== END 2021-01-26 11:35 | disposition home or self-care (01) ==
LOC: RADPROMAIN 08:23
PROVIDERS: ATTEND Internal Medicine Gastroenterology
DX: R18.8 Other ascites (principal)
CPT/HCPCS: 82565; 82947; 85049; 85610; 36415; 49083; P9047

== ENCOUNTER 2021-02-23 08:32 | Day surgery (SDC) | payer MEDICARE ==
[2021-02-23 08:55] VITALS: RESP 16; TEMP 97.6
[2021-02-23 09:24] LABS: Mean Platelet Volume 9.1; Platelet Count 65 k/uL (150-450)
[2021-02-23 09:35] LABS: INR 1.4 (<1.2); Prothrombin Time 14.6 sec (9.0-12.0)
[2021-02-23 10:45] VITALS: BP 105/60; PULSE 90
[2021-02-23] MEDS: ALBUMIN HUMAN 25% 50 ML in EMPTY BAG 1 BAG IVPB SCH (10:46)
--- NOTE | 2021-02-23 15:54 | US ---
Ultrasound-guided paracentesis. DATE OF EXAM: 02/23/2021 CLINICAL HISTORY: Ascites The procedure was discussed with the patient. The risks, complications, benefits, and alternatives we re discussed and any questions were answered. Informed consent was obtained. The patient was placed s upine on the ultrasound table and prepped and draped in the usual sterile fashion. All elements of maximal barrier technique were utilized. Under ultrasound guidance, access into the left lower quadrant was obtained, via the paracentesis catheter system and direct ultrasound guidance . Approximately 1.8 liters of straw-colored fluid was removed. The patient was stable throughout the pr ocedure and remained stable upon discharge from Department of Radiology. IMPRESSION: Successful paracentesis under ultrasound guidance.
== END 2021-02-23 10:45 | disposition home or self-care (01) ==
LOC: RADPROMAIN 08:32
PROVIDERS: ATTEND Internal Medicine Gastroenterology
DX: R18.8 Other ascites (principal)
CPT/HCPCS: 36415; 49083; 82565; 82947; 85049; 85610

== ENCOUNTER → 2021-03-08 | Outpatient (CLI) | payer MEDICARE ==
--- NOTE | 2021-03-08 22:00 | CT ---
EXAMINATION TYPE: CT abdomen pelvis wo con DATE OF EXAM: 03/08/2021 COMPARISON: None INDICATION: Liver disease x3 years. Patient poor historian. DLP: 598.9 mGycm, Automated exposure control for dose reduction was used. CONTRAST: 0 mL of Isovue 300. Study performed without Oral Contrast TECHNIQUE: Axial images were obtained from above the diaphragm to the pubic rami in the axial plane a t 5 mm thick sections. Reconstructed images are reviewed on the computer in the coronal plane. FINDINGS: Limited CT sections are obtained the lung bases. Small to moderate bilateral pleural effusions are p resent. Some compressive atelectasis is adjacent. Note is made of some coronary artery calcification. . CT ABDOMEN: Ascites is present. Liver: There is a stent extending into the right hepatic system. Spleen: Normal Pancreas: Normal Adrenal glands: The adrenal glands are normal. Gallbladder: Normal Kidneys: No masses are evident. No hydronephrosis is present. No cysts are present. No renal stone s are identified. Aorta: Vascular calcification is within the aorta. Inferior vena cava: Normal. CT PELVIS: The study is performed without oral contrast limiting bowel evaluation. Few diverticuli within the si gmoid colon. Fecal debris is at the rectum. No dilated loops of bowel are evident. Appendix: Not visualized. Urinary bladder: Normal. Genitourinary structures: Uterus and ovaries are not identified. Osseous structures: No suspicious lytic or sclerotic lesions. Pedicle screws are present in the lower lumbar spine. IMPRESSIONS: 1. Ascites. 2. Small to moderate bilateral pleural effusions with some minimal adjacent compressive atelectasis.
== END | disposition home or self-care (01) ==
LOC: RADCTMAIN 17:12
PROVIDERS: ATTEND Family Medicine
DX: K76.9 Liver disease, unspecified (principal); R18.8 Other ascites; J90 Pleural effusion, not elsewhere classified
CPT/HCPCS: 74176

== ENCOUNTER 2021-03-15 15:25 | Inpatient (IN) | payer MEDICARE ==
[2021-03-15 16:49] LABS: Anisocytosis Slight; Basophils # (A) 0.1 k/uL (0-0.2); Basophils % (A) 1 %; Eosinophils # (A) 0.5 k/uL (0-0.7); Eosinophils % (A) 9 %; HCT 27.5 % (34.0-46.0); HGB 9.2 gm/dL (11.4-16.0); Lymphocytes # (A) 0.8 k/uL (1.0-4.8); Lymphocytes % (A) 15 %; MCH 33.8 pg (25.0-35.0); MCHC 33.7 g/dL (31.0-37.0); MCV 100.3 fL (80.0-100.0); Macrocytosis Slight; Mean Platelet Volume 10.1; Monocytes # (A) 0.4 k/uL (0-1.0); Monocytes % (A) 8 %; Neutrophils # (A) 3.4 k/uL (1.3-7.7); Neutrophils % (A) 64 %; Poikilocytosis Moderate; RBC 2.74 m/uL (3.80-5.40); RDW 17.2 % (11.5-15.5); WBC 5.3 k/uL (3.8-10.6)
--- NOTE | 2021-03-15 16:50 | ED ---
General Adult HPI <Vidal Mo - Last Filed: 03/15/21 17:46> - General Source: patient Mode of arrival: wheelchair Limitations: no limitations <Maria Teresa Ya - Last Filed: 03/15/21 20:43> - General Chief complaint: Dizziness Stated complaint: Fall Time Seen by Provider: 03/15/21 16:04 - History of Present Illness Initial comments: Patient is a 65-year-old female with multiple comorbidities including heart failure, diabetes, liver and kidney disease, presenting to the emergency department from her doctor's office for episodes of dizziness and multiple falls 5 days ago. Patient states she felt like her legs would not hold her up and she fell about 55 days ago. She states she has not had any further falls over the past 5 days since then. Her right ankle but has been able to ambulate on it without difficulty. She also had both of her shoulders, she has bruising present. She states she does not think she had her head at all during these falls. She is not on blood thinners. She denies any complaints of pain today. She states she feels like she is holding more fluid than normal. She does have history of ascites. Patient's daughter is here with her now and states that she seems more "swollen than normal." Patient denies any chest pain or shortness of breath, no recent fevers. She has no abdominal pain, no nausea or vomiting. She states she's been eating and drinking as normal. She has no further complaints at this time. Upon arrival to the ER, she has lately tachycardia at 118, blood pressure is 94/56, 96% on room air, 98.3 temp. (Maria Teresa Ya) - Related Data Home Medications Medication Instructions Recorded Confirmed Montelukast [Singulair] 10 mg PO HS 07/10/14 03/15/21 Ezetimibe [Zetia] 10 mg PO DAILY 09/04/16 03/15/21 INSULIN LISPRO (For Pump) [humaLOG 0.01 units SQ-PUMP CONTINUOUS 09/04/16 03/15/21 (For Pump)] Sertraline [Zoloft] 25 mg PO DAILY 01/12/17 03/15/21 EPINEPHrine [Epipen 2-Sanchez] 0.3 mg IM ONCE PRN 11/23/17 03/15/21 Propranolol [Inderal] 10 mg PO BID 06/11/18 03/15/21 Lactulose 20 gm PO DAILY 08/22/18 03/15/21 Ergocalciferol (Vitamin D2) 50,000 unit PO JOE 09/17/18 03/15/21 [Vitamin D2] Atorvastatin [Lipitor] 40 mg PO HS 02/03/20 03/15/21 Furosemide [Lasix] 40 mg PO BID 02/03/20 03/15/21 Vitamin A Acetate [Vitamin A] 10,000 unit SL DAILY 02/03/20 03/15/21 Potassium Chloride ER [K-Dur 20] 20 meq PO DAILY 06/24/20 03/15/21 Ferrous Sulfate [Iron] 325 mg PO DAILY 01/26/21 03/15/21 Midodrine HCl [ProAmatine] 20 mg PO BID 03/15/21 03/15/21 Pantoprazole Sodium [Protonix] 40 mg PO DAILY 03/15/21 03/15/21 Rifaximin [Xifaxan] 550 mg PO BID 03/15/21 03/15/21 Zinc 50 mg PO DAILY 03/15/21 03/15/21 Allergies Allergy/AdvReac Type Severity Reaction Status Date / Time doxycycline Allergy Rash/Hives Verified 03/15/21 17:08 iodine Allergy Rash/Hives Verified 03/15/21 17:08 Penicillins Allergy Rash/Hives Verified 03/15/21 17:08 shellfish derived Allergy Rash/Hives Verified 03/15/21 17:08 Sulfa (Sulfonamide Allergy Rash/Hives Verified 03/15/21 17:08 Antibiotics) venom-honey bee Allergy Anaphylaxis Verified 03/15/21 17:08 [bee venom (honey bee)] Review of Systems ROS Other: All systems not noted in ROS Statement are negative. <Vidal Mo - Last Filed: 03/15/21 17:46> ROS Other: All systems not noted in ROS Statement are negative. <Maria Teresa Ya - Last Filed: 03/15/21 20:43> ROS Statement: Those systems with pertinent positive or pertinent negative responses have been documented in the HPI. Past Medical History Past Medical History: Coronary Artery Disease (CAD), Cancer, Chest Pain / Angina, Heart Failure, Diabetes Mellitus, Fibromyalgia, GERD/Reflux, Hyperlipidemia, Liver Disease, Renal Disease, Skin Disorder Additional Past Medical History / Comment(s): Non-ETOH cirrhosis, ascities, esophageal varices, pancytopenia, thrombycytopenia, anemia, IDDM with insulin pump, several nodules both lungs being monitored, urinary leakage at times and pt states she has diarrhea much of the time, psoriasis, cervical cancer, pt states 2 blockages in back of heart, awaiting liver transplant and CABG at [facility] in [place]. hx migraines, 2 seizures post back surgery, hiatal hernia, patient is undergoing work up for a possible TIPS at [facility] History of Any Multi-Drug Resistant Organisms: None Reported Past Surgical History: Back Surgery, Breast Surgery, Cholecystectomy, Heart Catheterization, Hysterectomy, Orthopedic Surgery, Tonsillectomy, Tubal Ligation Additional Past Surgical History / Comment(s): multi large volume Paracentesis, EGD with banded esophageal varices, colonoscopies, bilateral rotator cuff repairs, bilateral breast bx-benign, back surgery in 2014, TIPS Past Anesthesia/Blood Transfusion Reactions: Previous Problems w/ Anesthesia, Family History of Problems w/ Anesthesia, Motion Sickness Additional Past Anesthesia/Blood Transfusion Reaction / Comment(s): difficulty breathing when coming out of anesthesia; difficulty waking up. Hypotension with general anesthesia. blood transfusions without reaction. sister- slow coming out and PONV Past Psychological History: No Psychological Hx Reported Smoking Status: Former smoker Past Alcohol Use History: None Reported Past Drug Use History: None Reported - Past Family History Mother Family Medical History: Cancer Additional Family Medical History / Comment(s): skin cancer. Father Family Medical History: Coronary Artery Disease (CAD) Additional Family Medical History / Comment(s): cabg/pacemaker Brother(s) Family Medical History: Cancer Sister(s) Family Medical History: Cancer, Deep Vein Thrombosis (DVT) Additional Family Medical History / Comment(s): Breast CA. <Maria Teresa Ya L - Last Filed: 03/15/21 20:43> General Exam Limitations: no limitations <Maria Teresa Ya - Last Filed: 03/15/21 20:43> - General Exam Comments Initial Comments: GENERAL: Patient is well-developed and well-nourished. Patient is nontoxic and in no acute distress, mildly jaundice. HEAD: Atraumatic, normocephalic. EYES: Pupils equal round and reactive to light, extraocular movements intact, sclera anicteric, conjunctiva are normal. Eyelids were unremarkable. ENT: TMs normal, nares patent, oropharynx clear without exudates. Moist mucous memb ranes. NECK: Normal range of motion, supple without lymphadenopathy or JVD. LUNGS: Unlabored respirations. Decreased sounds in the lower win, no wheezes or rhonchi. HEART: Tachycardia and irregular, rate and rhythm without murmurs, rubs or gallops. ABDOMEN: Soft, nontender, normoactive bowel sounds. No guarding, no rebound. No masses appreciated. : Deferred MUSCULOSKELETAL: Patient has bruising and swelling noted around the right ankle, she does have full range of motion, no pain with palpation. Patient also has bruising noted to both shoulders, she has full range of motion of both shoulders, no pain. Patient does have bilateral lower leg pitting edema. No clubbing or cyanosis. NEUROLOGICAL: Patient is alert and oriented x 3. Motor and sensory are also intact. Cranial nerves II through XII grossly intact. Symmetrical smile. Normal speech, normal gait. PSYCH: Normal mood, normal affect. SKIN: Warm, Dry, normal turgor. Patient has bruising around her right ankle, she also has some bruising noted to both lateral shoulders. (Maria Teresa Ya) Course <Vidal Mo - Last Filed: 03/15/21 17:46> <Maria Teresa Ya - Last Filed: 03/15/21 20:43> Vital Signs 03/15/21 03/15/21 03/15/21 15:41 16:14 18:32 Temperature 98.3 F Pulse Rate 118 H 109 H 98 Respiratory 22 18 16 Rate Blood Pressure 94/56 119/66 111/51 O2 Sat by Pulse 96 98 95 Oximetry 03/15/21 19:31 Temperature 97.9 F Pulse Rate 115 H Respiratory 18 Rate Blood Pressure 112/68 O2 Sat by Pulse 97 Oximetry - Reevaluation(s) Reevaluation #1: 03/15/21 16:49 Shortly after patient was hooked up to the monitor, we did notice episodes, about 4 separate episodes of PEA that lasts for about 1-2 seconds. Patient seems asymptomatic during these episodes. (Maria Teresa Ya) Reevaluation #2: 03/15/21 17:46 PA supervision: I appreciated evaluation the patientpatient did present with complaints of dizziness with some episodes of falling. Patient arrives awake alert oriented 3. Is noted have atrial fibrillation did have at least one episode of a prolonged cause. Evaluation reveals some minimal hypokalemia her left leg. Within normal she did demonstrate anemia. Patient be admitted she was seen by Dr. Patel's MANAGER CT in emergency department. Patient be admitted with cardiology consultation. (Vidal Mo) EKG Findings - EKG Comments: EKG Findings:: A. fib with RVR, cannot rule out anterior infarct, age undetermined, no signs of an acute ischemic process. Ventricular rate 103, QRS duration 72, QTC 290. This is a change from her previous on 08/03/2020. <Maria Teresa Ya - Last Filed: 03/15/21 20:43> Medical Decision Making - Lab Data Result diagrams: 03/15/21 16:20 03/15/21 16:20 <Vidal Mo - Last Filed: 03/15/21 17:46> - Lab Data Result diagrams: 03/15/21 16:20 03/15/21 16:20 <Maria Teresa Ya - Last Filed: 03/15/21 20:43> - Medical Decision Making Patient is a 65-year-old female with multiple comorbidities including A. fib, renal and liver disease, presenting for multiple falls about 5 days ago. She was sent in by her PCPs office. She describes the falls as her legs not be able to hold her, episodes of feeling dizzy. EKG reads A. fib with mild RVR, ventricular rate of 105. Upon monitoring the patient, patient had about 4-5 episodes of pulseless activity. These were captured. Patient seems to be relatively asymptomatic during these episodes. She denies any chest pains. Her labs are relatively stable, normal white count, her platelets are low at 60, down from 73 a few weeks ago. Patient's kidney function is stable, liver enzymes are stable, troponin is normal, BNP is 4100. I did do a CT of the brain secondary to multiple falls, no acute process. Chest x-ray shows moderate congestive changes with small right pleural effusion. Right ankle x-ray reveals an old lateral malleolus fracture but no acute injury. Patient will be admitted secondary to episodes of PEA. Patient accepted by Alessandro MANAGER CT for Dr. Underwood. Cardio will be consulted. Case discussed in detail with Dr. Mo. (Maria Teresa Ya) - Lab Data Lab Results 03/15/21 03/15/21 03/15/21 Range/Units 16:20 16:20 16:20 WBC 5.3 (3.8-10.6) k/uL RBC 2.74 L (3.80-5.40) m/uL Hgb 9.2 L (11.4-16.0) gm/dL Hct 27.5 L (34.0-46.0) % MCV 100.3 H (80.0-100.0) fL MCH 33.8 (25.0-35.0) pg MCHC 33.7 (31.0-37.0) g/dL RDW 17.2 H (11.5-15.5) % Plt Count 60 L (150-450) k/uL MPV 10.1 Neutrophils % 64 % Lymphocytes % 15 % Monocytes % 8 % Eosinophils % 9 % Basophils % 1 % Neutrophils # 3.4 (1.3-7.7) k/uL Lymphocytes # 0.8 L (1.0-4.8) k/uL Monocytes # 0.4 (0-1.0) k/uL Eosinophils # 0.5 (0-0.7) k/uL Basophils # 0.1 (0-0.2) k/uL Poikilocytosis Moderate Anisocytosis Slight Macrocytosis Slight PT 13.9 H (9.0-12.0) sec INR 1.4 H (<1.2) APTT 34.6 H (22.0-30.0) sec Sodium 137 (137-145) mmol/L Potassium 3.3 L (3.5-5.1) mmol/L Chloride 108 H (98-107) mmol/L Carbon Dioxide 23 (22-30) mmol/L Anion Gap 6 mmol/L BUN 21 H (7-17) mg/dL Creatinine 1.53 H (0.52-1.04) mg/dL Est GFR (CKD-EPI)AfAm 40 (>60 ml/min/1.73 sqM) Est GFR (CKD-EPI)NonAf 35 (>60 ml/min/1.73 sqM) Glucose 165 H (74-99) mg/dL Plasma Lactic Acid Juan (0.7-2.0) mmol/L Calcium 8.5 (8.4-10.2) mg/dL Magnesium 2.3 (1.6-2.3) mg/dL Total Bilirubin 4.5 H (0.2-1.3) mg/dL AST 43 H (14-36) U/L ALT 28 (4-34) U/L Alkaline Phosphatase 130 H (38-126) U/L Troponin I (0.000-0.034) ng/mL NT-Pro-B Natriuret Pep pg/mL Total Protein 5.3 L (6.3-8.2) g/dL Albumin 2.7 L (3.5-5.0) g/dL Urine Color Urine Appearance (Clear) Urine pH (5.0-8.0) Ur Specific [place] (1.001-1.035) Urine Protein (Negative) Urine Glucose (UA) (Negative) Urine Ketones (Negative) Urine Blood (Negative) Urine Nitrite (Negative) Urine Bilirubin (Negative) Urine Urobilinogen (<2.0) mg/dL Ur Leukocyte Esterase (Negative) Urine RBC (0-5) /hpf Urine WBC (0-5) /hpf Ur Squamous Epith Cells (0-4) /hpf Urine Bacteria (None) /hpf Urine Mucus (None) /hpf 03/15/21 03/15/21 03/15/21 Range/Units 16:20 16:20 16:20 WBC (3.8-10.6) k/uL RBC (3.80-5.40) m/uL Hgb (11.4-16.0) gm/dL Hct (34.0-46.0) % MCV (80.0-100.0) fL MCH (25.0-35.0) pg MCHC (31.0-37.0) g/dL RDW (11.5-15.5) % Plt Count (150-450) k/uL MPV Neutrophils % % Lymphocytes % % Monocytes % % Eosinophils % % Basophils % % Neutrophils # (1.3-7.7) k/uL Lymphocytes # (1.0-4.8) k/uL Monocytes # (0-1.0) k/uL Eosinophils # (0-0.7) k/uL Basophils # (0-0.2) k/uL Poikilocytosis Anisocytosis Macrocytosis PT (9.0-12.0) sec INR (<1.2) APTT (22.0-30.0) sec Sodium (137-145) mmol/L Potassium (3.5-5.1) mmol/L Chloride (98-107) mmol/L Carbon Dioxide (22-30) mmol/L Anion Gap mmol/L BUN (7-17) mg/dL Creatinine (0.52-1.04) mg/dL Est GFR (CKD-EPI)AfAm (>60 ml/min/1.73 sqM) Est GFR (CKD-EPI)NonAf (>60 ml/min/1.73 sqM) Glucose (74-99) mg/dL Plasma Lactic Acid Juan 1.3 (0.7-2.0) mmol/L Calcium (8.4-10.2) mg/dL Magnesium (1.6-2.3) mg/dL Total Bilirubin (0.2-1.3) mg/dL AST (14-36) U/L ALT (4-34) U/L Alkaline Phosphatase (38-126) U/L Troponin I <0.012 (0.000-0.034) ng/mL NT-Pro-B Natriuret Pep pg/mL Total Protein (6.3-8.2) g/dL Albumin (3.5-5.0) g/dL Urine Color Yellow Urine Appearance Clear (Clear) Urine pH 5.5 (5.0-8.0) Ur Specific [place] 1.011 (1.001-1.035) Urine Protein Trace H (Negative) Urine Glucose (UA) Negative (Negative) Urine Ketones Negative (Negative) Urine Blood Moderate H (Negative) Urine Nitrite Negative (Negative) Urine Bilirubin Negative (Negative) Urine Urobilinogen <2.0 (<2.0) mg/dL Ur Leukocyte Esterase Negative (Negative) Urine RBC <1 (0-5) /hpf Urine WBC 1 (0-5) /hpf Ur Squamous Epith Cells <1 (0-4) /hpf Urine Bacteria Rare H (None) /hpf Urine Mucus Rare H (None) /hpf 18/ Range/Units 16:20 WBC (3.8-10.6) k/uL RBC (3.80-5.40) m/uL Hgb (11.4-16.0) gm/dL Hct (34.0-46.0) % MCV (80.0-100.0) fL MCH (25.0-35.0) pg MCHC (31.0-37.0) g/dL RDW (11.5-15.5) % Plt Count (150-450) k/uL MPV Neutrophils % % Lymphocytes % % Monocytes % % Eosinophils % % Basophils % % Neutrophils # (1.3-7.7) k/uL Lymphocytes # (1.0-4.8) k/uL Monocytes # (0-1.0) k/uL Eosinophils # (0-0.7) k/uL Basophils # (0-0.2) k/uL Poikilocytosis Anisocytosis Macrocytosis PT (9.0-12.0) sec INR (<1.2) APTT (22.0-30.0) sec Sodium (137-145) mmol/L Potassium (3.5-5.1) mmol/L Chloride (98-107) mmol/L Carbon Dioxide (22-30) mmol/L Anion Gap mmol/L BUN (7-17) mg/dL Creatinine (0.52-1.04) mg/dL Est GFR (CKD-EPI)AfAm (>60 ml/min/1.73 sqM) Est GFR (CKD-EPI)NonAf (>60 ml/min/1.73 sqM) Glucose (74-99) mg/dL Plasma Lactic Acid Juan (0.7-2.0) mmol/L Calcium (8.4-10.2) mg/dL Magnesium (1.6-2.3) mg/dL Total Bilirubin (0.2-1.3) mg/dL AST (14-36) U/L ALT (4-34) U/L Alkaline Phosphatase (38-126) U/L Troponin I (0.000-0.034) ng/mL NT-Pro-B Natriuret Pep 4100 pg/mL Total Protein (6.3-8.2) g/dL Albumin (3.5-5.0) g/dL Urine Color Urine Appearance (Clear) Urine pH (5.0-8.0) Ur Specific [place] (1.001-1.035) Urine Protein (Negative) Urine Glucose (UA) (Negative) Urine Ketones (Negative) Urine Blood (Negative) Urine Nitrite (Negative) Urine Bilirubin (Negative) Urine Urobilinogen (<2.0) mg/dL Ur Leukocyte Esterase (Negative) Urine RBC (0-5) /hpf Urine WBC (0-5) /hpf Ur Squamous Epith Cells (0-4) /hpf Urine Bacteria (None) /hpf Urine Mucus (None) /hpf Critical Care Time Critical Care Time: Yes Total Critical Care Time: 35 (Patient was having periods of pulseless electrical activity on the monitor. Patient is being admitted with cardiac consult. EKG shows A. fib with RVR.) <Maria Teresa Ya - Last Filed: 03/15/21 20:43> Disposition <Vidal Mo - Last Filed: 03/15/21 17:46> Is patient prescribed a controlled substance at d/c from ED?: No Decision Date: 03/15/21 Decision Time: 18:01 <Maria Teresa Ya - Last Filed: 03/15/21 20:43> Clinical Impression: A-fib, Sinus pause, Multiple falls, Dizziness Disposition: ADMITTED IP TO THIS HOSP Condition: Stable
[2021-03-15 16:52] LABS: Albumin 2.7 g/dL (3.5-5.0); Calcium 8.5 mg/dL (8.4-10.2); Magnesium 2.3 mg/dL (1.6-2.3); Potassium 3.3 mmol/L (3.5-5.1); Total Bilirubin 4.5 mg/dL (0.2-1.3); Total Protein 5.3 g/dL (6.3-8.2)
[2021-03-15 16:54] LABS: INR 1.4 (<1.2); Partial Thromboplastin Time 34.6 sec (22.0-30.0); Prothrombin Time 13.9 sec (9.0-12.0)
--- NOTE | 2021-03-15 16:56 | CT ---
EXAM: CT brain wo con CLINICAL HISTORY: Fall and dizziness. COMPARISON: None TECHNIQUE: Contiguous axial noncontrast images of the brain were obtained. Coronal and sagittal refor mats were generated and reviewed. Automated dose control was used for this exam. FINDINGS: There is no evidence for intracranial hemorrhage, mass effect or midline shift. The white matter is p reserved. Ventricular size and configuration is within normal limits for degree of parenchymal volume. The paranasal sinuses are clear. The mastoid air cells are clear. No evidence for calvarial fracture. IMPRESSION: No acute intracranial abnormality.
--- NOTE | 2021-03-15 17:04 | XR ---
RESULT: HISTORY: fall, bruising/swelling TECHNIQUE: 3 views of the right ankle were obtained. COMPARISON: None. FINDINGS: There is a 4 mm well-corticated ossific density adjacent to the lateral malleolar tip. The remaining visualized osseous structures are anatomic alignment. The visualized joint spaces are preserved. Ther e is diffuse soft tissue edema about the imaged leg and ankle. No soft tissue gas. IMPRESSION: Age-indeterminate fracture of the lateral malleolus, however appears subacute/chronic. Diffuse soft tissue edema.
--- NOTE | 2021-03-15 17:06 | XR ---
EXAMINATION TYPE: XR chest 2V DATE OF EXAM: 03/15/2021 COMPARISON: NONE HISTORY: Falls and weakness. TECHNIQUE: Frontal and lateral views of the chest are obtained. FINDINGS: There is moderate interstitial edema with associated diffuse hazy and streaky opacities. T here is small right pleural effusion. No pneumothorax seen. The cardiac silhouette size is enlarged. The osseous structures are intact. IMPRESSION: Moderate congestive changes with small right pleural effusion.
[2021-03-15 17:15] LABS: Platelet Count 60 k/uL (150-450)
[2021-03-15] MEDS ORDERED: ACETAMINOPHEN TAB 325 MG TAB PO PRN (17:49)
[2021-03-15] MEDS ORDERED: ONDANSETRON 4 MG/2 ML VIAL IVP PRN (17:49)
[2021-03-15] MEDS ORDERED: IBUPROFEN 400 MG TAB PO PRN (17:49)
[2021-03-15] MEDS ORDERED: NALOXONE 0.4 MG/ML 1 ML VIAL IV PRN (17:49)
[2021-03-15 17:52] LABS: Appearance,Urine Clear (Clear); Bacteria,Urine Rare /hpf; Bilirubin,Urine Negative (Negative); Blood,Urine Moderate (Negative); Color,Urine Yellow; Glucose,Urine (UA) Negative (Negative); Ketones,Urine Negative (Negative); Leukocyte Esterase,Urine Negative (Negative); Mucus,Urine Rare /hpf; Nitrite,Urine Negative (Negative); PH, Urine 5.5 (5.0-8.0); Protein,Urine Trace (Negative); RBC,Urine <1 /hpf (0-5); Specific Gravity,Urine 1.011 (1.001-1.035); Squamous Epithelial Cell,Urine <1 /hpf (0-4); Urobilinogen,Urine <2.0 mg/dL (<2.0); WBC,Urine 1 /hpf (0-5)
[2021-03-15] MEDS ORDERED: Potassium Replacement Protocol 1 EACH MISC MISCELLANE PRN (18:33)
[2021-03-15 19:41] LABS: Glucose,Whole Blood 147 mg/dL (75-99)
[2021-03-15] MEDS: POTASSIUM CHLORIDE ER 20 MEQ TAB.ER PO SCH ×2 (19:42→21:38)
[2021-03-15] MEDS: ATORVASTATIN 40 MG TAB PO SCH (21:38)
[2021-03-15] MEDS: MONTELUKAST 10 MG TAB PO SCH (21:38)
[2021-03-15] MEDS: FUROSEMIDE 40 MG TAB PO SCH (21:38)
[2021-03-15] MEDS: RIFAXIMIN 550 MG TABLET PO SCH (21:39)
[2021-03-15] MEDS ORDERED: INSPUCOR MISCELLANE PRN (22:38)
[2021-03-16 06:09] LABS: Glucose,Whole Blood 145 mg/dL (75-99)
[2021-03-16] MEDS: MIDODRINE 5 MG TAB PO SCH ×2 (06:09→17:35)
[2021-03-16] MEDS: INSULIN PUMP MEAL BOLUS 1 UNIT MISC MISCELLANE SCH ×4 (06:09→20:19)
[2021-03-16] MEDS: PANTOPRAZOLE 40 MG TABLET PO SCH (06:09)
[2021-03-16] MEDS: RIFAXIMIN 550 MG TABLET PO SCH ×2 (08:05→20:19)
[2021-03-16] MEDS: FUROSEMIDE 40 MG TAB PO SCH ×2 (08:05→20:19)
[2021-03-16] MEDS: EZETIMIBE 10 MG TAB PO SCH (08:05)
[2021-03-16] MEDS: LACTULOSE 20 GM/30 ML CUP PO SCH (08:05)
[2021-03-16] MEDS: FERROUS SULFATE 325 MG TAB PO SCH (08:05)
[2021-03-16] MEDS: VITAMIN A 10,000 UNIT (3000 MCG) CAPSULE PO SCH (08:05)
[2021-03-16 08:13] LABS: Albumin 2.7 g/dL (3.5-5.0); Calcium 8.3 mg/dL (8.4-10.2); Potassium 3.5 mmol/L (3.5-5.1); Total Bilirubin 5.3 mg/dL (0.2-1.3); Total Protein 5.2 g/dL (6.3-8.2)
[2021-03-16 08:32] LABS: Anisocytosis Slight; Basophils # (A) 0.1 k/uL (0-0.2); Basophils % (A) 1 %; Eosinophils # (A) 0.5 k/uL (0-0.7); Eosinophils % (A) 8 %; HCT 28.4 % (34.0-46.0); HGB 9.4 gm/dL (11.4-16.0); Lymphocytes # (A) 0.8 k/uL (1.0-4.8); Lymphocytes % (A) 14 %; MCH 33.5 pg (25.0-35.0); MCV 101.3 fL (80.0-100.0); Macrocytosis Slight; Mean Platelet Volume 10.9; Monocytes # (A) 0.5 k/uL (0-1.0); Monocytes % (A) 8 %; Neutrophils # (A) 3.7 k/uL (1.3-7.7); Neutrophils % (A) 66 %; Poikilocytosis Moderate; RDW 17.2 % (11.5-15.5); WBC 5.6 k/uL (3.8-10.6)
[2021-03-16 08:33] LABS: Platelet Count 71 k/uL (150-450)
--- NOTE | 2021-03-16 09:35 | XR ---
EXAMINATION TYPE: XR chest 1V portable DATE OF EXAM: 03/16/2021 COMPARISON: Chest x-ray 03/15/2021 HISTORY: Congestive heart failure TECHNIQUE: Single frontal view of the chest is obtained. FINDINGS: Findings are similar to prior exam. Bibasilar density persists, this perihilar vascular in distinctness, prominence of the central vascularity and interstitium. No evident pneumothorax. Heart is stable and likely enlarged, patient is rotated. IMPRESSION: Correlate for congestive heart failure with basilar effusions.
--- NOTE | 2021-03-16 09:47 | P.CRDCN ---
History of Present Illness History of present illness: HISTORY OF PRESENTING ILLNESS This is a pleasant 65-year-old female past medical history significant for alcoholic liver cirrhosis, recurrent ascites, esophageal varices, pancytope louie, diabetes mellitus, dyslipidemia, coronary artery disease exact details unavailable and paroxysmal atrial fibrillation not on termite helper anticoagulation secondary to liver disease and frequent falls. She follows in the office with a linen aide at the [facility]. We have been asked to see in consultation for atrial fibrillation with pauses. She presented to the hospital with symptoms of dizziness and multiple falls. She states this has been going on since Sunday. She becomes dizzy, lightheaded and weak and then falls. It is unclear if there is actually loss of consciousness. According to the patient she underwent cardiac catheterization last year at the [facility] and t here is one area of blockage but no PCI or angioplasty was performed. She does recall being told she has atrial fibrillation however she is not on any anticoagulant due to her frequent falls and liver disease. Telemetry tracings indicate she is in atrial fibrillation with frequent pauses up to 5 seconds. She does take propanolol at home, last dose was yesterday morning. It has been held since admission. DIAGNOSTICS EKG reveals atrial fibrillation heart rate of 103. Telemetry tracings indicate atrial fibrillation with frequent pauses. Chest xray basilar effusions. Laboratory reviewed, WBC 5.6, hemoglobin 9.4, platelets 71, INR 1.4, sodium 139, potassium 3.5, creatinine 1.48, magnesium 2.0, troponin negative 1, and T proBNP 4100, TSH 3.95. Current cardiac medications include midodrine 20 mg twice a day, propanolol 10 mg twice a day, daily potassium supplementation, Lasix 40 mg twice a day, Zetia 10 mg daily and atorvastatin 40 mg daily. REVIEW OF SYSTEMS At the time of my exam: CONSTITUTIONAL: Denies fever or chills. CARDIOVASCULAR: Denies chest pain, shortness of breath, orthopnea, PND or palpitations. RESPIRATORY: Denies cough. GASTROINTESTINAL: Denies abdominal pain, diarrhea, constipation, nausea or vomiting. MUSCULOSKELETAL: Denies myalgias. NEUROLOGIC: Denies numbness, tingling, headacbe or weakness. ENDOCRINE: Denies fatigue, weight change, polydipsia or polyurina. GENITOURINARY: Denies burning, hematuria or urgency with micturation. HEMATOLOGIC: Denies history of anemia or bleeding. PHYSICAL EXAMINATION Blood pressure 124/62 heart rate 53 afebrile and maintaining oxygen saturation on room air. CONSTITUTIONAL: No apparent distress. HEENT: Head is normocephalic. Pupils are equal, round. Sclerae anicteric. Mucous membranes of the mouth are moist. No JVD. No carotid bruit. CHEST EXAMINATION: Basilar crackles, no wheezes or rhonchi. No chest wall tende rness is noted on palpation or with deep breathing. HEART EXAMINATION: Irregular rate and rhythm. S1, S2 heard. Systolic ejection murmur at the base, no gallops or rub. ABDOMEN: Soft, nontender. Positive bowel sounds. EXTREMITIES: 2+ peripheral pulses, 1+ bilateral lower extremity pitting edema, e cchymosis to the right lower extremity and no calf tenderness. NEUROLOGIC EXAMINATION: Patient is awake, alert and oriented x3. ASSESSMENT Paroxysmal atrial fibrillation with variable ventricular rates Sick sinus syndrome, up to 5 second pauses Chronic liver disease Dyslipidemia Pancytopenia Esophageal varices Diabetes mellitus Coronary artery disease, exact details unavailable Chronic kidney disease PLAN Hold propanolol and continue telemetry monitoring. Obtain 2-D echocardiogram and Doppler study to assess cardiac structure and function. Request records from [facility] to assess coronary artery disease and documented history of heart failure. Nothing by mouth after midnight tonight for possible pacemaker implantation if she continues to have pauses after propanolol discontinued. Further recommendations to follow based upon clinical course. Thank you kindly for this consultation. Nurse Practitioner note has been reviewed, I agree with a documented findings and plan of care. Patient was seen and examined. Past Medical History Past Medical History: Coronary Artery Disease (CAD), Cancer, Chest Pain / Angina, Heart Failure, Diabetes Mellitus, Fibromyalgia, GERD/Reflux, Hyperlipidemia, Liver Disease, Renal Disease, Skin Disorder Additional Past Medical History / Comment(s): Non-ETOH cirrhosis, ascities, e sophageal varices, pancytopenia, thrombycytopenia, anemia, IDDM with insulin pump, several nodules both lungs being monitored, urinary leakage at times and pt states she has diarrhea much of the time, psoriasis, cervical cancer, pt states 2 blockages in back of heart, awaiting liver transplant and CABG at [facility] in [place]. hx migraines, 2 seizures post back surgery, hiatal hernia, patient is undergoing work up for a possible TIPS at [facility] History of Any Multi-Drug Resistant Organisms: None Reported Past Surgical History: Back Surgery, Breast Surgery, Cholecystectomy, Heart Catheterization, Hysterectomy, Orthopedic Surgery, Tonsillectomy, Tubal Ligation Additional Past Surgical History / Comment(s): multi large volume Paracentesis, EGD with banded esophageal varices, colonoscopies, bilateral rotator cuff repairs, bilateral breast bx-benign, back surgery in 2015, TIPS Past Anesthesia/Blood Transfusion Reactions: Previous Problems w/ Anesthesia, Family History of Problems w/ Anesthesia, Motion Sickness Additional Past Anesthesia/Blood Transfusion Reaction / Comment(s): difficulty breathing when coming out of anesthesia; difficulty waking up. Hypotension with general anesthesia. blood transfusions without reaction. sister- slow coming out and PONV Past Psychological History: No Psychological Hx Reported Additional Psychological History / Comment(s): . Smoking Status: Former smoker Past Alcohol Use History: None Reported Additional Past Alcohol Use History / Comment(s): smoked >20 years, quit in the . Smoked 1 ppd. Past Drug Use History: None Reported - Past Family History Mother Family Medical History: Cancer Additional Family Medical History / Comment(s): skin cancer. Father Family Medical History: Coronary Artery Disease (CAD) Additional Family Medical History / Comment(s): cabg/pacemaker Brother(s) Family Medical History: Cancer Sister(s) Family Medical History: Cancer, Deep Vein Thrombosis (DVT) Additional Family Medical History / Comment(s): Breast CA. Medications and Allergies Home Medications Medication Instructions Recorded Confirmed Type Montelukast [Singulair] 10 mg PO HS 07/10/14 03/15/21 History Ezetimibe [Zetia] 10 mg PO DAILY 09/04/16 03/15/21 History INSULIN LISPRO (For Pump) [humaLOG 0.01 units SQ-PUMP CONTINUOUS 09/04/16 03/15/21 History (For Pump)] Sertraline [Zoloft] 25 mg PO DAILY 01/12/17 03/15/21 History EPINEPHrine [Epipen 2-Sanchez] 0.3 mg IM ONCE PRN 11/23/17 03/15/21 History Propranolol [Inderal] 10 mg PO BID 06/11/18 03/15/21 History Lactulose 20 gm PO DAILY 08/22/18 03/15/21 History Ergocalciferol (Vitamin D2) 50,000 unit PO JOE 09/17/18 03/15/21 History [Vitamin D2] Atorvastatin [Lipitor] 40 mg PO HS 02/03/20 03/15/21 History Furosemide [Lasix] 40 mg PO BID 02/03/20 03/15/21 History Vitamin A Acetate [Vitamin A] 10,000 unit SL DAILY 02/03/20 03/15/21 History Potassium Chloride ER [K-Dur 20] 20 meq PO DAILY 06/24/20 03/15/21 History Ferrous Sulfate [Iron] 325 mg PO DAILY 01/26/21 03/15/21 History Midodrine HCl [ProAmatine] 20 mg PO BID 03/15/21 03/15/21 History Pantoprazole Sodium [Protonix] 40 mg PO DAILY 03/15/21 03/15/21 History Rifaximin [Xifaxan] 550 mg PO BID 03/15/21 03/15/21 History Zinc 50 mg PO DAILY 03/15/21 03/15/21 History Allergies Allergy/AdvReac Type Severity Reaction Status Date / Time doxycycline Allergy Rash/Hives Verified 03/15/21 17:08 iodine Allergy Rash/Hives Verified 03/15/21 17:08 Penicillins Allergy Rash/Hives Verified 03/15/21 17:08 shellfish derived Allergy Rash/Hives Verified 03/15/21 17:08 Sulfa (Sulfonamide Allergy Rash/Hives Verified 03/15/21 17:08 Antibiotics) venom-honey bee Allergy Anaphylaxis Verified 03/15/21 17:08 [bee venom (honey bee)] Physical Exam Vitals: Vital Signs Temp Pulse Pulse Resp BP BP Pulse Ox 03/16/21 08:00 18 03/16/21 07:59 98.1 F 53 L 18 124/62 95 03/16/21 03:51 98.2 F 108 H 20 108/67 94 L 03/15/21 23:52 98.7 F 121 H 20 120/68 95 03/15/21 22:21 98.6 F 110 H 22 108/70 96 03/15/21 21:39 97.6 F 94 20 106/51 97 03/15/21 19:31 97.9 F 115 H 18 112/68 97 03/15/21 18:32 98 16 111/51 95 03/15/21 16:14 109 H 18 119/66 98 03/15/21 15:41 98.3 F 118 H 22 94/56 96 Intake and Output 03/15/21 03/16/21 03/16/21 22:59 06:59 14:59 Intake Total 540 Output Total 1150 Balance -610 Intake: Oral 540 Output: Urine 1150 Other: Voiding Method Bedpan Bedpan Bedpan # Voids 1 Weight 76.657 kg 77.5 kg Results 03/16/21 07:22 03/16/21 07:22 Cardiac Enzymes 03/15/21 03/15/21 03/16/21 Range/Units 16:20 16:20 07:22 AST 43 H 45 H (14-36) U/L Troponin I <0.012 (0.000-0.034) ng/mL Coagulation 03/15/21 Range/Units 16:20 PT 13.9 H (9.0-12.0) sec APTT 34.6 H (22.0-30.0) sec CBC 03/15/21 Range/Units 16:20 WBC 5.3 (3.8-10.6) k/uL RBC 2.74 L (3.80-5.40) m/uL Hgb 9.2 L (11.4-16.0) gm/dL Hct 27.5 L (34.0-46.0) % Plt Count 60 L (150-450) k/uL Comprehensive Metabolic Panel 03/15/21 03/16/21 Range/Units 16:20 07:22 Sodium 137 139 (137-145) mmol/L Potassium 3.3 L 3.5 (3.5-5.1) mmol/L Chloride 108 H 109 H (98-107) mmol/L Carbon Dioxide 23 26 (22-30) mmol/L BUN 21 H 20 H (7-17) mg/dL Creatinine 1.53 H 1.48 H (0.52-1.04) mg/dL Glucose 165 H 136 H (74-99) mg/dL Calcium 8.5 8.3 L (8.4-10.2) mg/dL AST 43 H 45 H (14-36) U/L ALT 28 28 (4-34) U/L Alkaline Phosphatase 130 H 118 (38-126) U/L Total Protein 5.3 L 5.2 L (6.3-8.2) g/dL Albumin 2.7 L 2.7 L (3.5-5.0) g/dL Current Medications Generic Name Dose Route Start Last Admin Trade Name Freq PRN Reason Stop Dose Admin Acetaminophen 650 mg 03/15/21 17:49 Acetaminophen Tab 325 Mg Tab PO Q6HR PRN Mild Pain or Fever > 100.5 Atorvastatin Calcium 40 mg 03/15/21 21:00 03/15/21 21:38 Atorvastatin 40 Mg Tab PO 40 mg HS MACARIO Administration Ezetimibe 10 mg 03/16/21 09:00 03/16/21 08:05 Ezetimibe 10 Mg Tab PO 10 mg DAILY MACARIO Administration Ferrous Sulfate 325 mg 03/16/21 09:00 03/16/21 08:05 Ferrous Sulfate 325 Mg Tab PO 325 mg DAILY MACARIO Administration Furosemide 40 mg 03/15/21 21:00 03/16/21 08:05 Furosemide 40 Mg Tab PO 40 mg BID MACARIO Administration Ibuprofen 400 mg 03/15/21 17:49 Ibuprofen 400 Mg Tab PO Q6HR PRN Mild Pain or Fever > 100.5 Lactulose 20 gm 03/16/21 09:00 03/16/21 08:05 Lactulose 20 Gm/30 Ml Cup PO 20 gm DAILY MACARIO Administration Midodrine 20 mg 03/16/21 07:30 03/16/21 06:09 Midodrine 5 Mg Tab PO 20 mg AC-BID MACARIO Administration Miscellaneous Information 1 each 03/15/21 18:33 Potassium Replacement Protocol 1 Each Misc MISCELLANE DAILY PRN Per Protocol Protocol Miscellaneous Information 0 unit 03/16/21 07:30 03/16/21 06:09 Insulin Pump Meal Bolus 1 Unit Misc MISCELLANE Not Given ACHS [facility] Protocol Miscellaneous Information 0 unit 03/15/21 22:38 Insulin Pump Correction Bolus 1 Unit Misc MISCELLANE ACHS PRN Blood Sugar - High Protocol Montelukast Sodium 10 mg 03/15/21 21:00 03/15/21 21:38 Montelukast 10 Mg Tab PO 10 mg HS MACARIO Administration Naloxone HCl 0.2 mg 03/15/21 17:49 Naloxone 0.4 Mg/Ml 1 Ml Vial IV Q2M PRN Opioid Reversal Ondansetron HCl 4 mg 03/15/21 17:49 Ondansetron 4 Mg/2 Ml Vial IVP Q8HR PRN Nausea And Vomiting Pantoprazole Sodium 40 mg 03/16/21 07:30 03/16/21 06:09 Pantoprazole 40 Mg Tablet PO 40 mg [id number]-[id number] MACARIO Administration Rifaximin 550 mg 03/15/21 21:00 03/16/21 08:05 Rifaximin 550 Mg Tablet PO 04/14/21 21:01 550 mg BID MACARIO Administration Vitamin A 10,000 unit 03/16/21 09:00 03/16/21 08:05 Vitamin A 10,000 Unit Capsule PO 10,000 unit DAILY MACARIO Administration Intake and Output 03/15/21 03/16/21 03/16/21 22:59 06:59 14:59 Intake Total 540 Output Total 1150 Balance -610 Intake: Oral 540 Output: Urine 1150 Other: Voiding Method Bedpan Bedpan Bedpan # Voids 1 Weight 76.657 kg 77.5 kg 03/15/21 16:20 03/16/21 07:22
--- NOTE | 2021-03-16 11:55 | CONS ---
CONSULTATION REASON FOR CONSULT: Renal failure. HISTORY OF PRESENT ILLNESS: The patient is a 65-year-old female with history of hypertension, type 2 diabetes, chronic kidney disease, who follows at [facility]. The patient believes she has stage 3 kidney disease and she was last seen about a month ago. She presented to the hospital with complaints of dizziness and fall. The patient denied any nausea, vomiting. Her blood pressure was low when she came in with systolic at 94 mmHg. She denies use of any nonsteroidal anti-inflammatory agents. The patient is maintained on Lasix at home. The patient was noted to be in atrial fibrillation with frequent pauses and is being followed by Cardiology. She also stated that she recently had TIPS procedure performed at the [facility]. Serum creatinine was 1.5 on admission and it is down to 1.48. Previous labs in the computer show creatinine of about 1.7-2 mg/dL in December of 2020. PAST MEDICAL HISTORY: Significant for coronary artery disease, chronic liver disease, fibromyalgia, gastroesophageal reflux disease, chronic kidney disease stage 3, type 2 diabetes, lung nodules, history of cervical cancer, history of psoriasis, coronary artery disease, hiatal hernia. PAST SURGICAL HISTORY: Back surgery, cholecystectomy, cardiac catheterization, tubal ligation, tonsillectomy, hysterectomy, paracentesis, rotator cuff repair, colonoscopies, banding of esophageal varices, TIPS procedure in January of 2021. SOCIAL HISTORY: Negative for drug abuse. Patient is a former smoker. No history of alcohol abuse. MEDICATIONS: Medications prior to admission included Singulair, Zetia, insulin, Zoloft, Inderal, vitamin D2, Lipitor, Lasix, iron, midodrine, Protonix, rifaximin, zinc. ALLERGIES: Allergies include DOXYCYCLINE, IODINE, PENICILLIN, SHELLFISH, SULFA, HONEY BEE VENOM. REVIEW OF SYSTEMS: As per HPI. Other systems negative. PHYSICAL EXAMINATION: The patient is comfortable, awake, not in any acute distress. Alert, oriented x3. Blood pressure 124/62, heart rate 53 per minute. She is afebrile. EXAMINATION OF THE HEART: S1, S2. EXAMINATION OF THE LUNGS: Bilateral breath sounds are heard. Abdomen is soft, nontender. Examination of lower extremities shows no significant edema. Bruising is noted in the right foot and ankle area. MINE EQUIPMENT DESIGN ENGINEER exam grossly intact. LABS: Labs show sodium 139, potassium 3.5, chloride 109, BUN 20, creatinine 1.48, hemoglobin 9.4 g/dL. ASSESSMENT: 1. Acute kidney injury appears to be prerenal associated with hypotension and some volume depletion, currently improved. 2. Acute kidney injury in December as well with creatinine at that time peaking to about 2.28. 3. Chronic kidney disease NKF stage 3 with baseline creatinine most likely around 1.5- 1.6 mg/dL. Patient follows up at [facility]. Her UA shows trace protein, moderate blood, no significant cells are noted. Etiology is likely . 4. Hypokalemia secondary to diuresis. 5. Fall related to hypotension as well as frequent pauses noted. Cardiology is following. The patient was on beta blockers. PLAN: Continue to diurese and discontinue Motrin. Replace potassium. Repeat labs in a.m. Chest x-ray does show evidence of CHF. Therefore, I will continue with the current dose of Lasix. Thank you for this consultation. MMKERLINEL / AUDREYN: [phone] / KEILA
--- NOTE | 2021-03-16 12:00 | ECHOF ---
Referral Reason:falls, syncope MEASUREMENTS -------- HEIGHT: 165.1 cm WEIGHT: 77.1 kg BP: 124/62 RVIDd: 2.9 cm (< 3.3) IVSd: 1.2 cm (0.6 - 1.1) LVIDd: 4.7 cm (3.9 - 5.3) LVPWd: 1.0 cm (0.6 - 1.1) IVSs: 1.7 cm LVIDs: 3.0 cm LVPWs: 1.4 cm LA Diam: 3.6 cm (2.7 - 3.8) Ao Diam: 2.9 cm (2.0 - 3.7) AV Cusp: 1.9 cm (1.5 - 2.6) MV EXCURSION: 11.844 mm (> 18.000) MV EF SLOPE: 93 mm/s (70 - 150) EPSS: 0.5 cm MV E Blake: 1.62 m/s MV DecT: 202 ms MV A Blake: 0.89 m/s MV E/A Ratio: 1.83 AV maxP.12 mmHg AV meanP.76 mmHg RAP: 5.00 mmHg RVSP: 43.51 mmHg FINDINGS -------- Sinus rhythm. This was a technically adequate study. The left ventricular size is normal. There is borderline concentric left ventricular hypertrophy. Overall left ventricular systolic function is normal with, an EF between 55 - 60 %. The right ventricle is normal in size. The left atrium is normal in size. The right atrium is normal in size. Interatrial and interventricular septum intact. There is mild aortic valve sclerosis. Trace to mild aortic regurgitation. Mild mitral annular calcification present. Mild mitral regurgitation is present. Mild tricuspid regurgitation present. There is mild pulmonary hypertension. The right ventricular systolic pressure, as measured by Doppler, is 43.51mmHg. Trace/mild (physiologic) pulmonic regurgitation. The aortic root size is normal. Normal inferior vena cava with normal inspiratory collapse consistent with estimated right atrial pre ssure of 5 mmHg. There is no pericardial effusion. CONCLUSIONS -------- 1. The left ventricular size is normal. 2. There is borderline concentric left ventricular hypertrophy. 3. There is mild aortic valve sclerosis. 4. Trace to mild aortic regurgitation. 5. Mild mitral annular calcification present. 6. Mild mitral regurgitation is present. 7. Mild tricuspid regurgitation present. 8. There is mild pulmonary hypertension. 9. The right ventricular systolic pressure, as measured by Doppler, is 43.51mmHg. 10. Trace/mild (physiologic) pulmonic regurgitation. 11. There is no pericardial effusion. REPLENISHMENT ANALYST: Janeen Smalls RDCS
[2021-03-16 12:05] LABS: Glucose,Whole Blood 155 mg/dL (75-99)
--- NOTE | 2021-03-16 12:36 | P.CONS ---
History of Present Illness - Reason for Consult Consult date: 03/16/21 Hyperbilirubinemia Requesting physician: Dario Underwood - Chief Complaint Syncope and fall - History of Present Illness This is a pleasant 65-year-old female with multiple comorbidities including heart failure, insulin dependent diabetes, non-alcoholic decompensated liver disease, pancytopenia, thrombocytopenia, chronic kidney disease who was sent from her primary care office to the emergency department. She had episodes of dizziness and multiple falls over the last week. During her workup in the emergency department she was found to have atrial fibrillation with careful ventricular rates, sick sinus syndrome, up to 5 second positives for which cardiology is following the patient closely. The patient was diagnosed approximately 10 years ago with nonalcoholic fatty liver disease and follows with Dr. Orona. She has decompensated cirrhosis of the liver for the past several years dating paracentesis every 1-2 weeks. Her last paracentesis is 02/23/2021 with 1.8 L removed. She also follows with the [facility] and recently underwent a TIPS procedure on 02/04/2021. She states she does of some confusion since the TIPS procedure, however today she is alert and oriented 3. Her home medications include Xifaxan, lactulose, Minitran, Lasix, and iron. She also has a history of esophageal varices, her last EGD was on November [address] Orona she had small to large mid and distal esophageal varices status post variceal ligation. Also noted severe portal hypertensive gastropathy the fundus and stomach. Gastroenterology was consulted because of hyperbilirubinemia. Labs include WBC 5.3, hemoglobin 9.2, hematocrit 27.5, platelets 60,000, INR 1.4. Bilirubin 4.5, alkaline phosphatase 130, AST 43, ALT 28. She had a CT of the abdomen and pelvis on 03/08/2021 that showed ascites with stent extending into the right hepatic system. She currently denies any confusion, fatigue, abdominal distention, abdominal pain, nausea, or vomiting. Review of Systems REVIEW OF SYSTEMS: CARDIOPULMONARY: No chest pain or shortness of breath. Gastrointestinal: No pigastric pain, abdominal pain. No nausea or vomiting. No hematemesis, coffee-ground emesis. No rectal bleeding, or melena. GENITOURINARY: No dysuria or hematuria. MUSCULOSKELETAL: Reports normal range of motion., Joint pain. SKIN: No rashes. Mild jaundice. ENDOCRINE: Unremarkable. PSYCHIATRIC: Unremarkable. NEUROLOGY: No change in mental status. Denies headache. Positive for dizziness and weakness in lower extremities with fall. ENT: Vision unremarkable. CONSTITUTIONAL: No recent weight loss. No fever, chills, night sweats. Past Medical History Past Medical History: Coronary Artery Disease (CAD), Cancer, Chest Pain / Angina, Heart Failure, Diabetes Mellitus, Fibromyalgia, GERD/Reflux, Hyperlipidemia, Liver Disease, Renal Disease, Skin Disorder Additional Past Medical History / Comment(s): Non-ETOH cirrhosis, ascities, esophageal varices, pancytopenia, thrombycytopenia, anemia, IDDM with insulin pump, several nodules both lungs being monitored, urinary leakage at times and pt states she has diarrhea much of the time, psoriasis, cervical cancer, pt states 2 blockages in back of heart, awaiting liver transplant and CABG at [facility] in [place]. hx migraines, 2 seizures post back surgery, hiatal hernia, patient is undergoing work up for a possible TIPS at [facility] History of Any Multi-Drug Resistant Organisms: None Reported Past Surgical History: Back Surgery, Breast Surgery, Cholecystectomy, Heart Catheterization, Hysterectomy, Orthopedic Surgery, Tonsillectomy, Tubal Ligation Additional Past Surgical History / Comment(s): multi large volume Paracentesis, EGD with banded esophageal varices, colonoscopies, bilateral rotator cuff r epairs, bilateral breast bx-benign, back surgery in 2014, TIPS Past Anesthesia/Blood Transfusion Reactions: Previous Problems w/ Anesthesia, Family History of Problems w/ Anesthesia, Motion Sickness Additional Past Anesthesia/Blood Transfusion Reaction / Comm: difficulty breathing when coming out of anesthesia; difficulty waking up. Hypotension with general anesthesia. blood transfusions without reaction. sister- slow coming out and PONV Past Psychological History: No Psychological Hx Reported Additional Psychological History / Comment(s): . Smoking Status: Former smoker Past Alcohol Use History: None Reported Additional Past Alcohol Use History / Comment(s): smoked >20 years, quit in the . Smoked 1 ppd. Past Drug Use History: None Reported - Past Family History Mother Family Medical History: Cancer Additional Family Medical History / Comment(s): skin cancer. Father Family Medical History: Coronary Artery Disease (CAD) Additional Family Medical History / Comment(s): cabg/pacemaker Brother(s) Family Medical History: Cancer Sister(s) Family Medical History: Cancer, Deep Vein Thrombosis (DVT) Additional Family Medical History / Comment(s): Breast CA. Medications and Allergies Home Medications Medication Instructions Recorded Confirmed Type Montelukast [Singulair] 10 mg PO HS 07/10/14 03/15/21 History Ezetimibe [Zetia] 10 mg PO DAILY 09/04/16 03/15/21 History INSULIN LISPRO (For Pump) [humaLOG 0.01 units SQ-PUMP CONTINUOUS 09/04/16 03/15/21 History (For Pump)] Sertraline [Zoloft] 25 mg PO DAILY 01/12/17 03/15/21 History EPINEPHrine [Epipen 2-Sanchez] 0.3 mg IM ONCE PRN 11/23/17 03/15/21 History Propranolol [Inderal] 10 mg PO BID 06/11/18 03/15/21 History Lactulose 20 gm PO DAILY 08/22/18 03/15/21 History Ergocalciferol (Vitamin D2) 50,000 unit PO JOE 09/17/18 03/15/21 History [Vitamin D2] Atorvastatin [Lipitor] 40 mg PO HS 02/03/20 03/15/21 History Furosemide [Lasix] 40 mg PO BID 02/03/20 03/15/21 History Vitamin A Acetate [Vitamin A] 10,000 unit SL DAILY 02/03/20 03/15/21 History Potassium Chloride ER [K-Dur 20] 20 meq PO DAILY 06/24/20 03/15/21 History Ferrous Sulfate [Iron] 325 mg PO DAILY 01/26/21 03/15/21 History Midodrine HCl [ProAmatine] 20 mg PO BID 03/15/21 03/15/21 History Pantoprazole Sodium [Protonix] 40 mg PO DAILY 03/15/21 03/15/21 History Rifaximin [Xifaxan] 550 mg PO BID 03/15/21 03/15/21 History Zinc 50 mg PO DAILY 03/15/21 03/15/21 History Allergies Allergy/AdvReac Type Severity Reaction Status Date / Time doxycycline Allergy Rash/Hives Verified 03/15/21 17:08 iodine Allergy Rash/Hives Verified 03/15/21 17:08 Penicillins Allergy Rash/Hives Verified 03/15/21 17:08 shellfish derived Allergy Rash/Hives Verified 03/15/21 17:08 Sulfa (Sulfonamide Allergy Rash/Hives Verified 03/15/21 17:08 Antibiotics) venom-honey bee Allergy Anaphylaxis Verified 03/15/21 17:08 [bee venom (honey bee)] Physical Exam Vitals: Vital Signs Temp Pulse Pulse Resp BP BP Pulse Ox 03/16/21 08:00 18 03/16/21 07:59 98.1 F 53 L 18 124/62 95 03/16/21 03:51 98.2 F 108 H 20 108/67 94 L 03/15/21 23:52 98.7 F 121 H 20 120/68 95 03/15/21 22:21 98.6 F 110 H 22 108/70 96 03/15/21 21:39 97.6 F 94 20 106/51 97 03/15/21 19:31 97.9 F 115 H 18 112/68 97 03/15/21 18:32 98 16 111/51 95 03/15/21 16:14 109 H 18 119/66 98 03/15/21 15:41 98.3 F 118 H 22 94/56 96 Intake and Output 03/15/21 03/16/21 03/16/21 22:59 06:59 14:59 Intake Total 540 Output Total 1150 Balance -610 Intake: Oral 540 Output: Urine 1150 Other: Voiding Method Bedpan Bedpan Bedpan # Voids 1 Weight 76.657 kg 77.5 kg General appearance: The patient is alert, oriented, in no acute distress. HET: Head is normocephalic and atraumatic. No sclera icterus. Conjunctiva pink. Neck: Supple without lymphadenopathy. Trachea midline. Heart: S1 S2. Regular rate and rhythm. Lungs: Air to auscultation. Abdomen: Soft, nontender, nondistended with bowel sounds. No guarding or rigidity. Extremities: Normal skin color and turgor. +1 lower extremity edema. An: No rashes, mild jaundice. Neurological: No focal deficits. Strength and sensation are grossly intact. Results CBC & Chem 7: 03/16/21 07:22 03/16/21 07:22 Labs: Abnormal Lab Results - Last 24 Hours (Table) 03/15/21 03/15/21 03/15/21 Range/Units 16:20 16:20 16:20 RBC 2.74 L (3.80-5.40) m/uL Hgb 9.2 L (11.4-16.0) gm/dL Hct 27.5 L (34.0-46.0) % MCV 100.3 H (80.0-100.0) fL RDW 17.2 H (11.5-15.5) % Plt Count 60 L (150-450) k/uL Lymphocytes # 0.8 L (1.0-4.8) k/uL PT 13.9 H (9.0-12.0) sec INR 1.4 H (<1.2) APTT 34.6 H (22.0-30.0) sec Potassium 3.3 L (3.5-5.1) mmol/L Chloride 108 H (98-107) mmol/L BUN 21 H (7-17) mg/dL Creatinine 1.53 H (0.52-1.04) mg/dL Glucose 165 H (74-99) mg/dL POC Glucose (mg/dL) (75-99) mg/dL Calcium (8.4-10.2) mg/dL Total Bilirubin 4.5 H (0.2-1.3) mg/dL AST 43 H (14-36) U/L Alkaline Phosphatase 130 H (38-126) U/L Total Protein 5.3 L (6.3-8.2) g/dL Albumin 2.7 L (3.5-5.0) g/dL Urine Protein (Negative) Urine Blood (Negative) Urine Bacteria (None) /hpf Urine Mucus (None) /hpf 03/15/21 03/15/21 03/16/21 Range/Units 16:20 19:31 06:08 RBC (3.80-5.40) m/uL Hgb (11.4-16.0) gm/dL Hct (34.0-46.0) % MCV (80.0-100.0) fL RDW (11.5-15.5) % Plt Count (150-450) k/uL Lymphocytes # (1.0-4.8) k/uL PT (9.0-12.0) sec INR (<1.2) APTT (22.0-30.0) sec Potassium (3.5-5.1) mmol/L Chloride (98-107) mmol/L BUN (7-17) mg/dL Creatinine (0.52-1.04) mg/dL Glucose (74-99) mg/dL POC Glucose (mg/dL) 147 H 145 H (75-99) mg/dL Calcium (8.4-10.2) mg/dL Total Bilirubin (0.2-1.3) mg/dL AST (14-36) U/L Alkaline Phosphatase (38-126) U/L Total Protein (6.3-8.2) g/dL Albumin (3.5-5.0) g/dL Urine Protein Trace H (Negative) Urine Blood Moderate H (Negative) Urine Bacteria Rare H (None) /hpf Urine Mucus Rare H (None) /hpf 03/16/21 03/16/21 Range/Units 07:22 07:22 RBC 2.80 L (3.80-5.40) m/uL Hgb 9.4 L (11.4-16.0) gm/dL Hct 28.4 L (34.0-46.0) % MCV 101.3 H (80.0-100.0) fL RDW 17.2 H (11.5-15.5) % Plt Count 71 L (150-450) k/uL Lymphocytes # 0.8 L (1.0-4.8) k/uL PT (9.0-12.0) sec INR (<1.2) APTT (22.0-30.0) sec Potassium (3.5-5.1) mmol/L Chloride 109 H (98-107) mmol/L BUN 20 H (7-17) mg/dL Creatinine 1.48 H (0.52-1.04) mg/dL Glucose 136 H (74-99) mg/dL POC Glucose (mg/dL) (75-99) mg/dL Calcium 8.3 L (8.4-10.2) mg/dL Total Bilirubin 5.3 H (0.2-1.3) mg/dL AST 45 H (14-36) U/L Alkaline Phosphatase (38-126) U/L Total Protein 5.2 L (6.3-8.2) g/dL Albumin 2.7 L (3.5-5.0) g/dL Urine Protein (Negative) Urine Blood (Negative) Urine Bacteria (None) /hpf Urine Mucus (None) /hpf CT Scan - head: report reviewed (No acute intracranial abnormality.) Assessment and Plan (1) Liver cirrhosis secondary to nonalcoholic steatohepatitis (YEUNG) Narrative/Plan: 65-year-old female who presented to the emergency department with complaints of dizziness and frequent falls. She has multiple medical comorbidities, but was also found to be in atrial fibrillation upon her admission into the emergency department. She has a history of decompensated cirrhosis of the liver related to nonalcoholic fatty steatosis. She has had multiple paracentesis in the past for ascites, however recently went to the [facility] and underwent a TIPS procedure on 02/04/2021. She was noted to have an elevated bilirubin upon admission at 4.5, therefore gastroenterology was consulted. Liver enzymes are consistent with underlying cirrhosis of the liver, however there may also be a component elevation to the bilirubin related to her recent TIPS procedure. Current Visit: No Status: Chronic Code(s): K75.81 - NONALCOHOLIC STEATOHEPATITIS (YEUNG); K74.60 - UNSPECIFIED CIRRHOSIS OF LIVER SNOMED Code(s): 072221543 (2) Dizziness Current Visit: Yes Status: Acute Code(s): R42 - DIZZINESS AND GIDDINESS SNOMED Code(s): 347222249 (3) Multiple falls Current Visit: Yes Status: Acute Code(s): R29.6 - REPEATED FALLS SNOMED Code(s): 352864212 Plan: Continue symptomatic and supportive care Daily CBC, CMP Cardiology on consult Avoid hepatotoxic medications Thank you for this consultation, we will continue to follow closely Dr. Gutierrez I agree with the dictator's note, documented as a scribe by Heather Christopher.
[2021-03-16 17:22] LABS: Glucose,Whole Blood 206 mg/dL (75-99)
[2021-03-16 19:59] LABS: Glucose,Whole Blood 238 mg/dL (75-99)
[2021-03-16] MEDS: ATORVASTATIN 40 MG TAB PO SCH (20:19)
[2021-03-16] MEDS: MONTELUKAST 10 MG TAB PO SCH (20:19)
--- NOTE | 2021-03-16 22:04 | P.HPIM ---
History of Present Illness H&P Date: 03/16/21 (0700) Chief Complaint: Dizziness/generalized weakness 65-year-old female Admitted to the hospital with several comorbidities including heart failure, diabetes, liver, kidney disease,Hyperlipidemia, diabetes mellitus and ascites.Patient was sent from our services to the emergency room due to continue dizziness and frequent falls within the last 5 days. Patient noted to have ecchymosis to bilateral shoulders, and right lower extremity. Patient had extensive diagnostic workup in emergency department revealing atrial fibrillation with significant pauses. Patient diagnostic testing within patient normal limits of kidney dysfunction, thrombocytopenia, and elevated liver en zymes. Chest x-ray shows pulmonary congestion. Patient will be admitted to our services with cardiology consult, nephrology consult, gastroenterology consult. Review of Systems Constitutional: Reports fatigue, Reports weakness, Reports weight loss Ears: bilateral: decreased hearing Cardiovascular: Reports decreased exercise tolerance, Reports dyspnea on exertion, Reports lightheadedness, Reports orthopnea, Reports shortness of breath Respiratory: Reports dyspnea Musculoskeletal: Reports muscle weakness Musculoskeletal: bilateral: ankle swelling (Bilateral), shoulder swelling (Bilateral bruising) Integumentary: Reports unusual bruising Neurological: Reports balance difficulties, Reports gait dysfunction, Reports lack of coordination, Reports weakness Psychiatric: Reports depression Endocrine: Reports fatigue Hematologic/Lymphatic: Reports easy bruising Past Medical History Past Medical History: Coronary Artery Disease (CAD), Cancer, Chest Pain / Angina , Heart Failure, Diabetes Mellitus, Fibromyalgia, GERD/Reflux, Hyperlipidemia, Liver Disease, Renal Disease, Skin Disorder Additional Past Medical History / Comment(s): Non-ETOH cirrhosis, ascities, esophageal varices, pancytopenia, thrombycytopenia, anemia, IDDM with insulin pump, several nodules both lungs being monitored, urinary leakage at times and pt states she has diarrhea much of the time, psoriasis, cervical cancer, pt states 2 blockages in back of heart, awaiting liver transplant and CABG at [facility] in [place]. hx migraines, 2 seizures post back surgery, hiatal hernia, patient is undergoing work up for a possible TIPS at [facility] History of Any Multi-Drug Resistant Organisms: None Reported Past Surgical History: Back Surgery, Breast Surgery, Cholecystectomy, Heart Catheterization, Hysterectomy, Orthopedic Surgery, Tonsillectomy, Tubal Ligation Additional Past Surgical History / Comment(s): multi large volume Paracentesis, EGD with banded esophageal varices, colonoscopies, bilateral rotator cuff repairs, bilateral breast bx-benign, back surgery in 2015, TIPS Past Anesthesia/Blood Transfusion Reactions: Previous Problems w/ Anesthesia, Family History of Problems w/ Anesthesia, Motion Sickness Additional Past Anesthesia/Blood Transfusion Reaction / Comment(s): difficulty breathing when coming out of anesthesia; difficulty waking up. Hypotension with general anesthesia. blood transfusions without reaction. sister- slow coming out and PONV Past Psychological History: No Psychological Hx Reported Additional Psychological History / Comment(s): . Smoking Status: Former smoker Past Alcohol Use History: None Reported Additional Past Alcohol Use History / Comment(s): smoked >20 years, quit in the . Smoked 1 ppd. Past Drug Use History: None Reported - Past Family History Mother Family Medical History: Cancer Additional Family Medical History / Comment(s): skin cancer. Father Family Medical History: Coronary Artery Disease (CAD) Additional Family Medical History / Comment(s): cabg/pacemaker Brother(s) Family Medical History: Cancer Sister(s) Family Medical History: Cancer, Deep Vein Thrombosis (DVT) Additional Family Medical History / Comment(s): Breast CA. Medications and Allergies Home Medications and Allergies Comment(s): Medications and allergies reviewed Home Medications Medication Instructions Recorded Confirmed Type Montelukast [Singulair] 10 mg PO HS 07/10/14 03/15/21 History Ezetimibe [Zetia] 10 mg PO DAILY 09/04/16 03/15/21 History INSULIN LISPRO (For Pump) [humaLOG 0.01 units SQ-PUMP CONTINUOUS 09/04/1603/15 History (For Pump)] Sertraline [Zoloft] 25 mg PO DAILY 01/12/17 03/15/21 History EPINEPHrine [Epipen 2-Sanchez] 0.3 mg IM ONCE PRN 11/23/17 03/15/21 History Propranolol [Inderal] 10 mg PO BID 06/11/18 03/15/21 History Lactulose 20 gm PO DAILY 08/22/18 03/15/21 History Ergocalciferol (Vitamin D2) 50,000 unit PO JOE 09/17/18 03/15/21 History [Vitamin D2] Atorvastatin [Lipitor] 40 mg PO HS 02/03/20 03/15/21 History Furosemide [Lasix] 40 mg PO BID 02/03/20 03/15/21 History Vitamin A Acetate [Vitamin A] 10,000 unit SL DAILY 02/03/20 03/15/21 History Potassium Chloride ER [K-Dur 20] 20 meq PO DAILY 06/24/20 03/15/21 History Ferrous Sulfate [Iron] 325 mg PO DAILY 01/26/21 03/15/21 History Midodrine HCl [ProAmatine] 20 mg PO BID 03/15/21 03/15/21 History Pantoprazole Sodium [Protonix] 40 mg PO DAILY 03/15/21 03/15/21 History Rifaximin [Xifaxan] 550 mg PO BID 03/15/21 03/15/21 History Zinc 50 mg PO DAILY 03/15/21 03/15/21 History Allergies Allergy/AdvReac Type Severity Reaction Status Date / Time doxycycline Allergy Rash/Hives Verified 03/15/21 17:08 iodine Allergy Rash/Hives Verified 03/15/21 17:08 Penicillins Allergy Rash/Hives Verified 03/15/21 17:08 shellfish derived Allergy Rash/Hives Verified 03/15/21 17:08 Sulfa (Sulfonamide Allergy Rash/Hives Verified 03/15/21 17:08 Antibiotics) venom-honey bee Allergy Anaphylaxis Verified 03/15/21 17:08 [bee venom (honey bee)] Physical Exam Vitals: Vital Signs Temp Pulse Resp BP Pulse Ox 03/16/21 16:00 60 18 116/60 96 03/16/21 13:27 18 03/16/21 12:00 98.0 F 54 L 18 138/55 95 03/16/21 08:00 18 03/16/21 07:59 98.1 F 53 L 18 124/62 95 03/16/21 03:51 98.2 F 108 H 20 108/67 94 L 03/15/21 23:52 98.7 F 121 H 20 120/68 95 03/15/21 22:21 98.6 F 110 H 22 108/70 96 Intake and Output 03/16/21 03/16/21 03/16/21 06:59 14:59 22:59 Intake Total 540 125 Output Total 1150 Balance -610 125 Intake: Oral 540 125 Output: Urine 1150 Other: Voiding Method Bedpan Bedpan # Voids 1 2 Weight 77.5 kg - Constitutional General appearance: mild distress - EENT Eyes: EOMI, PERRLA ENT: hard of hearing Ears: bilateral: normal - Respiratory Respiratory: bilateral: diminished (Anterior and posterior lung win) - Cardiovascular Atrial fibrillation with frequent pauses Heart rate: 74 Rhythm: irregularly irregular Heart sounds: normal: S1, S2 ankle Peripheral Edema: bilateral: Trace radial pulse Peripheral Pulses: bilateral: Normal - Gastrointestinal General gastrointestinal: hepatomegaly - Integumentary Integumentary: pale - Neurologic Neurologic: CNII-XII intact - Musculoskeletal Musculoskeletal: generalized weakness - Psychiatric Psychiatric: A&O x's 3, appropriate affect Results CBC & Chem 7: 03/16/21 07:22 03/16/21 07:22 Labs: Abnormal Lab Results - Last 24 Hours (Table) 03/16/21 03/16/21 03/16/21 Range/Units 06:08 07:22 07:22 RBC 2.80 L (3.80-5.40) m/uL Hgb 9.4 L (11.4-16.0) gm/dL Hct 28.4 L (34.0-46.0) % MCV 101.3 H (80.0-100.0) fL RDW 17.2 H (11.5-15.5) % Plt Count 71 L (150-450) k/uL Lymphocytes # 0.8 L (1.0-4.8) k/uL Chloride 109 H (98-107) mmol/L BUN 20 H (7-17) mg/dL Creatinine 1.48 H (0.52-1.04) mg/dL Glucose 136 H (74-99) mg/dL POC Glucose (mg/dL) 145 H (75-99) mg/dL Hemoglobin A1c (4.0-6.0) % Calcium 8.3 L (8.4-10.2) mg/dL Total Bilirubin 5.3 H (0.2-1.3) mg/dL AST 45 H (14-36) U/L Total Protein 5.2 L (6.3-8.2) g/dL Albumin 2.7 L (3.5-5.0) g/dL 03/16/21 03/16/21 03/16/21 Range/Units 07:22 11:43 16:51 RBC (3.80-5.40) m/uL Hgb (11.4-16.0) gm/dL Hct (34.0-46.0) % MCV (80.0-100.0) fL RDW (11.5-15.5) % Plt Count (150-450) k/uL Lymphocytes # (1.0-4.8) k/uL Chloride (98-107) mmol/L BUN (7-17) mg/dL Creatinine (0.52-1.04) mg/dL Glucose (74-99) mg/dL POC Glucose (mg/dL) 155 H 206 H (75-99) mg/dL Hemoglobin A1c 6.3 H (4.0-6.0) % Calcium (8.4-10.2) mg/dL Total Bilirubin (0.2-1.3) mg/dL AST (14-36) U/L Total Protein (6.3-8.2) g/dL Albumin (3.5-5.0) g/dL 03/16/21 Range/Units 19:56 RBC (3.80-5.40) m/uL Hgb (11.4-16.0) gm/dL Hct (34.0-46.0) % MCV (80.0-100.0) fL RDW (11.5-15.5) % Plt Count (150-450) k/uL Lymphocytes # (1.0-4.8) k/uL Chloride (98-107) mmol/L BUN (7-17) mg/dL Creatinine (0.52-1.04) mg/dL Glucose (74-99) mg/dL POC Glucose (mg/dL) 238 H (75-99) mg/dL Hemoglobin A1c (4.0-6.0) % Calcium (8.4-10.2) mg/dL Total Bilirubin (0.2-1.3) mg/dL AST (14-36) U/L Total Protein (6.3-8.2) g/dL Albumin (3.5-5.0) g/dL Microbiology - Last 24 Hours (Table) 03/16/21 10:37 Urine Culture - Preliminary Urine,Voided Chest x-ray: report reviewed CT Scan - head: report reviewed Thrombosis Risk Factor Assmnt - Choose All That Apply Each Risk Factor Represents 2 Points: Age 61-74 years Thrombosis Risk Factor Assessment Total Risk Factor Score: 2 Thrombosis Risk Factor Assessment Level: Low Risk Assessment and Plan Assessment: Atrial fibrillation with frequent pauses Dizziness generalized weakness ascites History of coronary Artery Disease History of Cancer Heart Failure, Unspecified Fibromyalgia GERD/Reflux Hyperlipidemia Liver Disease Chronic kidney Non-ETOH cirrhosis History of esophageal varices thrombycytopenia IDDM with insulin pump, Recent TIPS at [facility] Plan: Atrial fibrillation with frequent pauses avoid beta-blockers, calcium channel blockers, and consultation with cardiology for recommendations and treatment plan thrombocytopenia continue to monitor platelet counts transfuse as needed elevated bilirubin consultation with gastroenterology for treatment plan and recommendations continue home medications continue to monitor vital signs and diagnostic testing further recommendations to come patient patient's global condition Time with Patient: Greater than 30
[2021-03-17] MEDS: MIDODRINE 5 MG TAB PO SCH ×2 (06:26→18:11)
[2021-03-17] MEDS: PANTOPRAZOLE 40 MG TABLET PO SCH (06:26)
[2021-03-17 06:52] LABS: Glucose,Whole Blood 134 mg/dL (75-99)
[2021-03-17 07:39] LABS: Anisocytosis Slight; HCT 23.6 % (34.0-46.0); HGB 8.3 gm/dL (11.4-16.0); MCH 34.9 pg (25.0-35.0); MCHC 35.1 g/dL (31.0-37.0); MCV 99.5 fL (80.0-100.0); Macrocytosis Slight; Poikilocytosis Moderate; RBC 2.37 m/uL (3.80-5.40); RDW 16.4 % (11.5-15.5); WBC 4.8 k/uL (3.8-10.6)
[2021-03-17 07:46] LABS: Albumin 2.6 g/dL (3.5-5.0); Potassium 2.9 mmol/L (3.5-5.1); Total Bilirubin 5.2 mg/dL (0.2-1.3)
[2021-03-17 07:48] LABS: Platelet Count 55 k/uL (150-450)
[2021-03-17] MEDS ORDERED: Potassium Replacement Protocol 1 EACH MISC MISCELLANE PRN (08:40)
[2021-03-17] MEDS: FUROSEMIDE 40 MG TAB PO SCH ×2 (08:41→20:14)
[2021-03-17] MEDS: LACTULOSE 20 GM/30 ML CUP PO SCH (08:41)
[2021-03-17] MEDS: VITAMIN A 10,000 UNIT (3000 MCG) CAPSULE PO SCH (08:41)
[2021-03-17] MEDS: EZETIMIBE 10 MG TAB PO SCH (08:41)
[2021-03-17] MEDS: FERROUS SULFATE 325 MG TAB PO SCH (08:41)
[2021-03-17] MEDS: RIFAXIMIN 550 MG TABLET PO SCH ×2 (08:41→20:14)
[2021-03-17] MEDS: POTASSIUM CHLORIDE ER 20 MEQ TAB.ER PO SCH ×3 (10:45→15:34)
[2021-03-17 10:50] LABS: Glucose,Whole Blood 119 mg/dL (75-99)
[2021-03-17 11:37] LABS: Glucose,Whole Blood 167 mg/dL (75-99)
[2021-03-17] MEDS: INSULIN PUMP MEAL BOLUS 1 UNIT MISC MISCELLANE SCH ×4 (11:46→20:14)
[2021-03-17] MEDS ORDERED: POTASSIUM CHLORIDE ER 20 MEQ TAB.ER PO ONE (12:00)
--- NOTE | 2021-03-17 12:52 | P.PN ---
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 She follows in the office with a financial planner at the [facility]. We have been asked to see in consultation for atrial fibrillation with pauses. She presented to the hospital with symptoms of dizziness and multiple falls. She states this has been going on since Sunday. She becomes dizzy, lightheaded and weak and then falls. It is unclear if there is actually loss of consciousness. According to the patient she underwent cardiac catheterization last year at the [facility] and there is one area of blockage but no PCI or angioplasty was performed. She does recall being told she has atrial fibrillation however she is not on any anticoagulant due to her frequent falls and liver disease. Telemetry tracings indicate she is in atrial fibrillation with frequent pauses up to 5 seconds. She does take propanolol at home, last dose was yesterday morning. It has been held since admission. 03/17/2021 Patient seen and examined resting comfortably in bed in no acute distress. Telemetry tracings reviewed. She converted back to sinus mechanism yesterday and has been maintaining since that time. Heart rate in the 50s. She has had no further pauses. Echocardiogram obtained reveals preserved LV systolic function with ejection fraction 55-60%, mild MR, mild TR and mild pulmonary hypertension with an RVSP of 43 mmHg. Blood pressure 136/73 heart rate 64 afebrile maintaining oxygen saturation on room air. Laboratory data reviewed, WBC 4.8, hemoglobin 8.3, platelets 55, sodium 139, potassium 2.9, creatinine 1.57. PHYSICAL EXAMINATION CONSTITUTIONAL: No apparent distress. HEENT: Head is normocephalic. Pupils are equal, round. Sclerae anicteric. Mucous membranes of the mouth are moist. No JVD. No carotid bruit. CHEST EXAMINATION: Basilar crackles, no wheezes or rhonchi. No chest wall tenderness is noted on palpation or with deep breathing. HEART EXAMINATION: Irregular rate and rhythm. S1, S2 heard. Systolic ejection murmur at the base, no gallops or rub. EXTREMITIES: 2+ peripheral pulses, 1+ bilateral lower extremity pitting edema, ecchymosis to the right lower extremity and no calf tenderness. ASSESSMENT Paroxysmal atrial fibrillation with variable ventricular rates, new onset Sick sinus syndrome, up to 5 second pauses Chronic liver disease Dyslipidemia Pancytopenia Esophageal varices Diabetes mellitus Coronary artery disease, exact details unavailable Chronic kidney disease Hypokalemia PLAN Ongoing telemetry monitoring. No plans for pacemaker implantation at this time. Review of records from [facility] make no mention of history of A. fib, this appears to be new on this admission. No anticoagulation will be initiated due to frequent falls and chronic liver disease with thrombocytopenia. Replace potassium per protocol. Ongoing telemetry monitoring. Nurse Practitioner note has been reviewed, I agree with a documented findings and plan of care. Patient was seen and examined. Objective - Vital Signs Vital signs: Vital Signs Temp 98.5 F 03/17/21 08:40 Pulse 64 03/17/21 08:40 Resp 18 03/17/21 08:40 BP 136/73 03/17/21 08:40 Pulse Ox 94 L 03/17/21 08:40 Intake & Output 03/16/21 03/17/21 03/17/21 18:59 06:59 18:59 Intake Total 125 Balance 125 Weight 74.3 kg Intake: Oral 125 Other: Voiding Method Bedpan Bedpan Bedpan # Voids 2 - Labs CBC & Chem 7: 03/17/21 06:11 03/17/21 06:11 Labs: Abnormal Lab Results - Last 24 Hours (Table) 03/16/21 03/16/21 03/16/21 Range/Units 07:22 11:43 16:51 RBC (3.80-5.40) m/uL Hgb (11.4-16.0) gm/dL Hct (34.0-46.0) % RDW (11.5-15.5) % Plt Count (150-450) k/uL Potassium (3.5-5.1) mmol/L Chloride (98-107) mmol/L BUN (7-17) mg/dL Creatinine (0.52-1.04) mg/dL Glucose (74-99) mg/dL POC Glucose (mg/dL) 155 H 206 H (75-99) mg/dL Hemoglobin A1c 6.3 H (4.0-6.0) % Calcium (8.4-10.2) mg/dL Total Bilirubin (0.2-1.3) mg/dL AST (14-36) U/L Total Protein (6.3-8.2) g/dL Albumin (3.5-5.0) g/dL 03/16/21 03/17/21 03/17/21 Range/Units 19:56 06:11 06:11 RBC 2.37 L (3.80-5.40) m/uL Hgb 8.3 L (11.4-16.0) gm/dL Hct 23.6 L (34.0-46.0) % RDW 16.4 H (11.5-15.5) % Plt Count 55 L (150-450) k/uL Potassium 2.9 L (3.5-5.1) mmol/L Chloride 108 H (98-107) mmol/L BUN 20 H (7-17) mg/dL Creatinine 1.57 H (0.52-1.04) mg/dL Glucose 117 H (74-99) mg/dL POC Glucose (mg/dL) 238 H (75-99) mg/dL Hemoglobin A1c (4.0-6.0) % Calcium 8.0 L (8.4-10.2) mg/dL Total Bilirubin 5.2 H (0.2-1.3) mg/dL AST 42 H (14-36) U/L Total Protein 5.0 L (6.3-8.2) g/dL Albumin 2.6 L (3.5-5.0) g/dL 03/17/21 03/17/21 Range/Units 06:45 10:48 RBC (3.80-5.40) m/uL Hgb (11.4-16.0) gm/dL Hct (34.0-46.0) % RDW (11.5-15.5) % Plt Count (150-450) k/uL Potassium (3.5-5.1) mmol/L Chloride (98-107) mmol/L BUN (7-17) mg/dL Creatinine (0.52-1.04) mg/dL Glucose (74-99) mg/dL POC Glucose (mg/dL) 134 H 119 H (75-99) mg/dL Hemoglobin A1c (4.0-6.0) % Calcium (8.4-10.2) mg/dL Total Bilirubin (0.2-1.3) mg/dL AST (14-36) U/L Total Protein (6.3-8.2) g/dL Albumin (3.5-5.0) g/dL Microbiology - Last 24 Hours (Table) 03/16/21 10:37 Urine Culture - Preliminary Urine,Voided
--- NOTE | 2021-03-17 13:15 | P.PN ---
Subjective Progress Note Date: 03/17/21 Principal diagnosis: Hyperbilirubinemia The patient was seen and examined lying in bed. She denies any abdominal pain, nausea, or vomiting. She is alert and oriented. She is asked to bring questions appropriately. She is denying any dizziness or falls. Liver enzymes are stable. Patient states she has an appointment with Dr. Orona in 2 weeks. Objective - Vital Signs Vital signs: Vital Signs Temp 98.5 F 03/17/21 08:40 Pulse 64 03/17/21 08:40 Resp 18 03/17/21 08:40 BP 136/73 03/17/21 08:40 Pulse Ox 94 L 03/17/21 08:40 Intake & Output 03/16/21 03/17/21 03/17/21 18:59 06:59 18:59 Intake Total 125 Balance 125 Weight 74.3 kg Intake: Oral 125 Other: Voiding Method Bedpan Bedpan Bedpan # Voids 2 - Exam General appearance: The patient is alert, oriented, appears in no acute distress. HET: Head is normocephalic and atraumatic. Conjunctiva pink. Sclera anicteric. Neck: Supple without lymphadenopathy. Abdomen: Soft, nontender, nondistended with bowel sounds. No guarding or rig idity. Extremities: Normal skin color and turgor. No pedal edema Skin: No rashes, jaundice. Neurological: No focal deficits. Alert and oriented 3. - Labs CBC & Chem 7: 03/17/21 06:11 03/17/21 06:11 Labs: Abnormal Lab Results - Last 24 Hours (Table) 03/16/21 03/16/21 03/16/21 Range/Units 07:22 11:43 16:51 RBC (3.80-5.40) m/uL Hgb (11.4-16.0) gm/dL Hct (34.0-46.0) % RDW (11.5-15.5) % Plt Count (150-450) k/uL Potassium (3.5-5.1) mmol/L Chloride (98-107) mmol/L BUN (7-17) mg/dL Creatinine (0.52-1.04) mg/dL Glucose (74-99) mg/dL POC Glucose (mg/dL) 155 H 206 H (75-99) mg/dL Hemoglobin A1c 6.3 H (4.0-6.0) % Calcium (8.4-10.2) mg/dL Total Bilirubin (0.2-1.3) mg/dL AST (14-36) U/L Total Protein (6.3-8.2) g/dL Albumin (3.5-5.0) g/dL 03/16/21 03/17/21 03/17/21 Range/Units 19:56 06:11 06:11 RBC 2.37 L (3.80-5.40) m/uL Hgb 8.3 L (11.4-16.0) gm/dL Hct 23.6 L (34.0-46.0) % RDW 16.4 H (11.5-15.5) % Plt Count 55 L (150-450) k/uL Potassium 2.9 L (3.5-5.1) mmol/L Chloride 108 H (98-107) mmol/L BUN 20 H (7-17) mg/dL Creatinine 1.57 H (0.52-1.04) mg/dL Glucose 117 H (74-99) mg/dL POC Glucose (mg/dL) 238 H (75-99) mg/dL Hemoglobin A1c (4.0-6.0) % Calcium 8.0 L (8.4-10.2) mg/dL Total Bilirubin 5.2 H (0.2-1.3) mg/dL AST 42 H (14-36) U/L Total Protein 5.0 L (6.3-8.2) g/dL Albumin 2.6 L (3.5-5.0) g/dL 03/17/21 Range/Units 06:45 RBC (3.80-5.40) m/uL Hgb (11.4-16.0) gm/dL Hct (34.0-46.0) % RDW (11.5-15.5) % Plt Count (150-450) k/uL Potassium (3.5-5.1) mmol/L Chloride (98-107) mmol/L BUN (7-17) mg/dL Creatinine (0.52-1.04) mg/dL Glucose (74-99) mg/dL POC Glucose (mg/dL) 134 H (75-99) mg/dL Hemoglobin A1c (4.0-6.0) % Calcium (8.4-10.2) mg/dL Total Bilirubin (0.2-1.3) mg/dL AST (14-36) U/L Total Protein (6.3-8.2) g/dL Albumin (3.5-5.0) g/dL Microbiology - Last 24 Hours (Table) 03/16/21 10:37 Urine Culture - Preliminary Urine,Voided Assessment and Plan (1) Liver cirrhosis secondary to nonalcoholic steatohepatitis (YEUNG) Narrative/Plan: 65-year-old female who presented to the emergency department with complaints of dizziness and frequent falls. She has multiple medical comorbidities, but was also found to be in atrial fibrillation upon her admission into the emergency department. She has a history of decompensated cirrhosis of the liver related to nonalcoholic fatty steatosis. She has had multiple paracentesis in the past for ascites, however recently went to the [facility] and underwent a TIPS procedure on 02/04/2021. She was noted to have an elevated bilirubin upon admission at 4.5, therefore gastroenterology was consulted. Liver enzymes are consistent with underlying cirrhosis of the liver, however there may also be a component elevation to the bilirubin related to her recent TIPS procedure. Current Visit: No Status: Chronic Code(s): K75.81 - NONALCOHOLIC STEA TOHEPATITIS (YEUNG); K74.60 - UNSPECIFIED CIRRHOSIS OF LIVER SNOMED Code(s): 000168852 (2) Dizziness Current Visit: Yes Status: Acute Code(s): R42 - DIZZINESS AND GIDDINESS SNOMED Code(s): 120652249 (3) Multiple falls Current Visit: Yes Status: Acute Code(s): R29.6 - REPEATED FALLS SNOMED Code(s): 592863263 Plan: Continue symptomatic and supportive care Daily CBC, CMP Cardiology on consult Avoid hepatotoxic medications Patient to keep follow-up appointment with Dr. Orona Thank you for this consultation, we will continue to follow closely Dr. Gutierrez I agree with the dictator's note, documented as a scribe by Heather Christopher.
--- NOTE | 2021-03-17 13:35 | CDI ---
Documentation Clarification Form Date: 03/17/2021 01:21:23 PM From: Ara Prabhakar RN, CCDS Admit Date: 03/15/2021 05:46:00 PM Patient Name: Carol Gore Visit Number: [id number] Discharge Date: ATTENTION: The Clinical Documentation Specialists (CDI) and [facility] Coding Staff appreciate your assistance in clarifying documentation. Please respond to the clarification below the line at the bottom and electronically sign. The CDI & [facility] Coding staff will review the response and follow-up if needed. Please note: Queries are made part of the Legal Health Record. If you have any questions, please contact the author of this message via ITS. Dr. Dario Unedrwood Your patient has the documented diagnosis of unspecified CHF in your H/P on 03/16 with ongoing treatment of Lasix 40 mg po bid. Additional information regarding the [type, acuity] of CHF is requested. History/Risk Factors: Coronary artery disease, Heart failure, Diabetes Mellitus, Liver disease, Renal disease, NSAH, Clinical Indicators: 65-year-old female present on 03/15 with complaints of generalized weakness. She has a history of heart failure with ongoing treatment with Lasix. 03/15 on admission: VS/Pulse OX: 94/56 118 22 98.3 96 % RA 03/15 BNP: 4100 03/16 Echocardiogram Results: boarderline concentric left ventricular hypertrophy. Overall left ventricular systolic function is normal with, an EF between 55-60 % 03/15 Chest X Ray: moderate congestive changes with small right pleural effusion. 03/16 Chest X-ray: correlate for congestive heart failure with basilar effusions. Treatment: Lasix 40 MG PO BID Lipitor 40MG PO HS Zetia 10 MG PO Daily In your professional opinion, can you please clarify the [acuity and type] of CHF if known? [ X ] Acute on Chronic Diastolic Heart Failure (preserved EF) (Template Last Revised: November 2020) MTDD
--- NOTE | 2021-03-17 13:37 | P.PN ---
Subjective 65-year-old female is admitted for the dizziness and frequent falls. Patient had atrial fibrillation with a variable ventricular rate and was diagnosed with sick sinus syndrome. Patient's beta lina was discontinued and patient is being monitored at this time. Patient was having 5 second sinus pauses because of which are beta lina was discontinued. Patient had history of for cirrhosis and had TIPS procedures. Constitutional: Denied any fatigue denied any fever. Cardio vascular: denied any chest pain, palpitations Gastrointestinal denied any nausea vomiting Pulmonary: Denied any shortness of breath cough Neurologic denied any new focal deficits All inpatient medications were reviewed and appropriate changes in these medications as dictated in the interval history and assessment and plan. Objective - Vital Signs Vital signs: Vital Signs Temp 97.7 F 03/17/21 12:15 Pulse 64 03/17/21 08:40 Resp 16 03/17/21 12:15 BP 95/58 03/17/21 12:15 Pulse Ox 97 03/17/21 12:15 Intake & Output 03/16/21 03/17/21 03/17/21 18:59 06:59 18:59 Intake Total 125 Balance 125 Weight 74.3 kg Intake: Oral 125 Other: Voiding Method Bedpan Bedpan Bedpan # Voids 2 - Exam PHYSICAL EXAMINATION: GENERAL: The patient is alert and oriented x3, not in any acute distress. Well developed, well nourished. HEENT: Pupils are round and equally reacting to light. EOMI. No scleral icterus. No conjunctival pallor. Normocephalic, atraumatic. No pharyngeal erythema. No thyromegaly. CARDIOVASCULAR: S1 and S2 present. No murmurs, rubs, or gallops. PULMONARY: Chest is clear to auscultation, no wheezing or crackles. ABDOMEN: Soft, nontender, nondistended, normoactive bowel sounds. No palpable organomegaly. MUSCULOSKELETAL: No joint swelling or deformity. EXTREMITIES: No cyanosis, clubbing, or pedal edema. NEUROLOGICAL: Gross neurological examination did not reveal any focal deficits. SKIN: No rashes. - Labs CBC & Chem 7: 03/17/21 06:11 03/17/21 06:11 Labs: Abnormal Lab Results - Last 24 Hours (Table) 03/16/21 03/16/21 03/16/21 Range/Units 07:22 16:51 19:56 RBC (3.80-5.40) m/uL Hgb (11.4-16.0) gm/dL Hct (34.0-46.0) % RDW (11.5-15.5) % Plt Count (150-450) k/uL Potassium (3.5-5.1) mmol/L Chloride (98-107) mmol/L BUN (7-17) mg/dL Creatinine (0.52-1.04) mg/dL Glucose (74-99) mg/dL POC Glucose (mg/dL) 206 H 238 H (75-99) mg/dL Hemoglobin A1c 6.3 H (4.0-6.0) % Calcium (8.4-10.2) mg/dL Total Bilirubin (0.2-1.3) mg/dL AST (14-36) U/L Total Protein (6.3-8.2) g/dL Albumin (3.5-5.0) g/dL 03/17/21 03/17/21 03/17/21 Range/Units 06:11 06:11 06:45 RBC 2.37 L (3.80-5.40) m/uL Hgb 8.3 L (11.4-16.0) gm/dL Hct 23.6 L (34.0-46.0) % RDW 16.4 H (11.5-15.5) % Plt Count 55 L (150-450) k/uL Potassium 2.9 L (3.5-5.1) mmol/L Chloride 108 H (98-107) mmol/L BUN 20 H (7-17) mg/dL Creatinine 1.57 H (0.52-1.04) mg/dL Glucose 117 H (74-99) mg/dL POC Glucose (mg/dL) 134 H (75-99) mg/dL Hemoglobin A1c (4.0-6.0) % Calcium 8.0 L (8.4-10.2) mg/dL Total Bilirubin 5.2 H (0.2-1.3) mg/dL AST 42 H (14-36) U/L Total Protein 5.0 L (6.3-8.2) g/dL Albumin 2.6 L (3.5-5.0) g/dL 03/17/21 03/17/21 Range/Units 10:48 11:33 RBC (3.80-5.40) m/uL Hgb (11.4-16.0) gm/dL Hct (34.0-46.0) % RDW (11.5-15.5) % Plt Count (150-450) k/uL Potassium (3.5-5.1) mmol/L Chloride (98-107) mmol/L BUN (7-17) mg/dL Creatinine (0.52-1.04) mg/dL Glucose (74-99) mg/dL POC Glucose (mg/dL) 119 H 167 H (75-99) mg/dL Hemoglobin A1c (4.0-6.0) % Calcium (8.4-10.2) mg/dL Total Bilirubin (0.2-1.3) mg/dL AST (14-36) U/L Total Protein (6.3-8.2) g/dL Albumin (3.5-5.0) g/dL Microbiology - Last 24 Hours (Table) 03/16/21 10:37 Urine Culture - Preliminary Urine,Voided Assessment and Plan Plan: Frequent falls and possible sinus syndrome: Patient's beta lina is being held and monitor today. -Atrial fibrillation presently not on any beta lina because of frequent sinus pauses -Coronary artery disease -History of cirrhosis status and esophageal varices status post TIA. His procedure with the chronic elevation of liver enzymes and bilirubin -Insulin-dependent diabetes mellitus on insulin pump which will be continued -Chronic kidney disease stage III patient's present creatinine is at her baseline - hypokalemia potassium will be replaced.
--- NOTE | 2021-03-17 13:50 | PN ---
PROGRESS NOTE Patient is seen for followup for chronic kidney disease. Her renal function has been fairly stable with creatinine staying at 1.5 mg/dL. PHYSICAL EXAMINATION: On examination today, patient is comfortable. Blood pressure is 136/73, heart rate 64 per minute. She is afebrile. EXAMINATION OF THE HEART: S1, S2. EXAMINATION OF THE LUNGS: Bilateral breath sounds are heard. Abdomen is soft, nontender. Examination of lower extremities shows no evidence of edema in the left leg. There is mild edema noted in the right leg near the ankle with there is bruising noted on the foot and ankle as well. DIGITAL PRODUCTION OPERATOR exam grossly intact. LABS: Labs show sodium 139, potassium 2.9, chloride 108, BUN 20, creatinine 1.57, hemoglobin 8.3 g/dL. ASSESSMENT: 1. Chronic kidney disease NKF stage 3, mostly creatinine around 1.5-1.6 mg/dL. Patient follows up at [facility]. UA shows trace protein, moderate blood. Etiology is likely nephrosclerosis. 2. Hypokalemia secondary to diuresis. 3. Fall related to hypotension as well as frequent pauses noted on EKG, being followed by Cardiology. Beta blockers currently on hold. 4. Acute kidney injury in December with a creatinine peaking at about 2.28 mg/dL at that time. PLAN: Continue current dose of Lasix which is at 40 mg p.o. b.i.d. and follow up as outpatient with Nephrology. No other changes in medications at this time. The patient is maintained on midodrine. Check cortisol level if not done. MMODL / IJN: [id number] /
[2021-03-17 16:51] LABS: Glucose,Whole Blood 198 mg/dL (75-99)
[2021-03-17 20:13] LABS: Glucose,Whole Blood 203 mg/dL (75-99)
[2021-03-17] MEDS: ATORVASTATIN 40 MG TAB PO SCH (20:14)
[2021-03-17] MEDS: MONTELUKAST 10 MG TAB PO SCH (20:14)
[2021-03-18 05:50] LABS: Glucose,Whole Blood 127 mg/dL (75-99)
[2021-03-18] MEDS: PANTOPRAZOLE 40 MG TABLET PO SCH (06:54)
[2021-03-18] MEDS: MIDODRINE 5 MG TAB PO SCH ×2 (06:54→17:47)
[2021-03-18] MEDS: FERROUS SULFATE 325 MG TAB PO SCH (08:00)
[2021-03-18] MEDS: FUROSEMIDE 40 MG TAB PO SCH ×2 (08:00→20:47)
[2021-03-18] MEDS: LACTULOSE 20 GM/30 ML CUP PO SCH (08:00)
[2021-03-18] MEDS: RIFAXIMIN 550 MG TABLET PO SCH ×2 (08:00→20:52)
[2021-03-18] MEDS: VITAMIN A 10,000 UNIT (3000 MCG) CAPSULE PO SCH (08:00)
[2021-03-18] MEDS: EZETIMIBE 10 MG TAB PO SCH (08:00)
[2021-03-18 08:31] LABS: Anisocytosis Slight; Basophils % (A) 1 %; Eosinophils # (A) 0.4 k/uL (0-0.7); Eosinophils % (A) 8 %; HCT 23.8 % (34.0-46.0); HGB 8.3 gm/dL (11.4-16.0); Lymphocytes # (A) 0.9 k/uL (1.0-4.8); Lymphocytes % (A) 17 %; MCH 34.6 pg (25.0-35.0); MCHC 34.8 g/dL (31.0-37.0); MCV 99.6 fL (80.0-100.0); Macrocytosis Slight; Mean Platelet Volume 10.8; Monocytes # (A) 0.4 k/uL (0-1.0); Monocytes % (A) 9 %; Neutrophils # (A) 3.1 k/uL (1.3-7.7); Neutrophils % (A) 63 %; Poikilocytosis Moderate; RBC 2.39 m/uL (3.80-5.40); RDW 16.5 % (11.5-15.5)
[2021-03-18 08:41] LABS: Platelet Count 52 k/uL (150-450)
[2021-03-18 08:43] LABS: Calcium 8.1 mg/dL (8.4-10.2); Potassium 3.3 mmol/L (3.5-5.1)
--- NOTE | 2021-03-18 09:17 | XR ---
EXAMINATION TYPE: XR chest 1V portable DATE OF EXAM: 03/18/2021 COMPARISON: Chest x-ray 03/16/2021 HISTORY: Congestive heart failure TECHNIQUE: Single frontal view of the chest is obtained. FINDINGS: There is some improvement in the prominence of the interstitium and central vascularity. P atchy bibasilar density persists. There is no evident pneumothorax. Heart appears prominently. There are overlying leads. IMPRESSION: Suspect some improvement in aeration, volume status. Difficult to exclude small basilar effusions.
[2021-03-18] MEDS: INSULIN PUMP MEAL BOLUS 1 UNIT MISC MISCELLANE SCH ×5 (09:45→20:50)
[2021-03-18] MEDS ORDERED: POTASSIUM CHLORIDE ER 20 MEQ TAB.ER PO STA (10:08)
--- NOTE | 2021-03-18 11:53 | P.PN ---
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 She follows in the office with a retail event coordinator at the [facility]. We have been asked to see in consultation for atrial fibrillation with pauses. She presented to the hospital with symptoms of dizziness and multiple falls. She states this has been going on since Sunday. She becomes dizzy, lightheaded and weak and then falls. It is unclear if there is actually loss of consciousness. According to the patient she underwent cardiac catheterization last year at the [facility] and there is one area of blockage but no PCI or angioplasty was performed. She does recall being told she has atrial fibrillation however she is not on any anticoagulant due to her frequent falls and liver disease. Telemetry tracings indicate she is in atrial fibrillation with frequent pauses up to 5 seconds. She does take propanolol at home, last dose was yesterday morning. It has been held since admission. 03/18/2021 Patient seen and examined resting comfortably in bed in no acute distress. She denies symptoms of chest pain or worsening shortness of breath. Telemetry tracings reveals she is maintaining sinus mechanism with no further episodes of pauses or atrial fibrillation. Blood pressure 120/77 heart rate 66 afebrile maintaining oxygen saturation on room air. Laboratory data reviewed, WBC 5, hemoglobin 8.3, platelets 52, sodium 141, potassium 3.3 and creatinine 1.58. Repeat chest x-ray today reveals improvement in aeration. PHYSICAL EXAMINATION CONSTITUTIONAL: No apparent distress. HEENT: Head is normocephalic. Pupils are equal, round. Sclerae anicteric. Mucous membranes of the mouth are moist. No JVD. No carotid bruit. CHEST EXAMINATION: Clear to auscultation bilaterally. No rales, wheezes or rhonchi. No chest wall tenderness is noted on palpation or with deep breathing. HEART EXAMINATION: Irregular rate and rhythm. S1, S2 heard. Systolic ejection murmur at the base, no gallops or rub. EXTREMITIES: 2+ peripheral pulses, 1+ bilateral lower extremity pitting edema, ecchymosis to the right lower extremity and no calf tenderness. ASSESSMENT Paroxysmal atrial fibrillation with variable ventricular rates, new onset Sick sinus syndrome, up to 5 second pauses Chronic liver disease Dyslipidemia Pancytopenia Esophageal varices Diabetes mellitus Coronary artery disease, exact details unavailable Chronic kidney disease Hypokalemia PLAN No plans for permanent pacemaker implantation. Replace potassium. Discontinue propanolol permanently. Nurse Practitioner note has been reviewed, I agree with a documented findings a nd plan of care. Patient was seen and examined. Objective - Vital Signs Vital signs: Vital Signs Temp 98.5 F 03/18/21 08:00 Pulse 66 03/18/21 08:00 Resp 16 03/18/21 08:00 BP 120/77 03/18/21 08:00 Pulse Ox 94 L 03/18/21 08:00 Intake & Output 03/17/21 03/18/21 03/18/21 18:59 06:59 18:59 Intake Total 780 Output Total 900 500 Balance -120 -500 Weight 71.5 kg Intake: Oral 780 Output: Urine 900 500 Other: Voiding Method Bedpan Bedpan # Voids 1 # Bowel Movements 1 - Labs CBC & Chem 7: 03/18/21 08:11 03/18/21 08:11 Labs: Abnormal Lab Results - Last 24 Hours (Table) 03/17/21 03/17/21 03/17/21 Range/Units 10:48 11:33 16:50 RBC (3.80-5.40) m/uL Hgb (11.4-16.0) gm/dL Hct (34.0-46.0) % RDW (11.5-15.5) % Plt Count (150-450) k/uL Lymphocytes # (1.0-4.8) k/uL Potassium (3.5-5.1) mmol/L Chloride (98-107) mmol/L BUN (7-17) mg/dL Creatinine (0.52-1.04) mg/dL Glucose (74-99) mg/dL POC Glucose (mg/dL) 119 H 167 H 198 H (75-99) mg/dL Calcium (8.4-10.2) mg/dL 03/17/21 03/18/21 03/18/21 Range/Units 20:11 05:46 08:11 RBC (3.80-5.40) m/uL Hgb (11.4-16.0) gm/dL Hct (34.0-46.0) % RDW (11.5-15.5) % Plt Count (150-450) k/uL Lymphocytes # (1.0-4.8) k/uL Potassium 3.3 L (3.5-5.1) mmol/L Chloride 108 H (98-107) mmol/L BUN 20 H (7-17) mg/dL Creatinine 1.58 H (0.52-1.04) mg/dL Glucose 109 H (74-99) mg/dL POC Glucose (mg/dL) 203 H 127 H (75-99) mg/dL Calcium 8.1 L (8.4-10.2) mg/dL 03/18/21 Range/Units 08:11 RBC 2.39 L (3.80-5.40) m/uL Hgb 8.3 L (11.4-16.0) gm/dL Hct 23.8 L (34.0-46.0) % RDW 16.5 H (11.5-15.5) % Plt Count 52 L (150-450) k/uL Lymphocytes # 0.9 L (1.0-4.8) k/uL Potassium (3.5-5.1) mmol/L Chloride (98-107) mmol/L BUN (7-17) mg/dL Creatinine (0.52-1.04) mg/dL Glucose (74-99) mg/dL POC Glucose (mg/dL) (75-99) mg/dL Calcium (8.4-10.2) mg/dL Microbiology - Last 24 Hours (Table) 03/16/21 10:37 Urine Culture - Final Urine,Voided
[2021-03-18 12:01] LABS: Glucose,Whole Blood 157 mg/dL (75-99)
--- NOTE | 2021-03-18 15:38 | P.PN ---
Subjective Progress Note Date: 03/18/21 Principal diagnosis: Hyperbilirubinemia The patient is seen and examined lying in bed. She is without any acute changes or complaints. Denies any abdominal pain, nausea, or vomiting. Objective - Vital Signs Vital signs: Vital Signs Temp 98 F 03/18/21 11:17 Pulse 76 03/18/21 11:17 Resp 16 03/18/21 11:17 BP 102/62 03/18/21 11:17 Pulse Ox 93 L 03/18/21 11:17 Intake & Output 03/17/21 03/18/21 03/18/21 18:59 06:59 18:59 Intake Total 780 Output Total 900 500 Balance -120 -500 Weight 71.5 kg Intake: Oral 780 Output: Urine 900 500 Other: Voiding Method Bedpan Bedpan Bedpan # Voids 1 # Bowel Movements 1 1 - Exam General appearance: The patient is alert, oriented, appears in no acute distress. HET: Head is normocephalic and atraumatic. Conjunctiva pink. Sclera anicteric. Neck: Supple without lymphadenopathy. Abdomen: Soft, nontender, nondistended with bowel sounds. No guarding or rigidity. Extremities: Normal skin color and turgor. No pedal edema Skin: No rashes, jaundice. Neurological: No focal deficits. Alert and oriented 3. - Labs CBC & Chem 7: 03/18/21 08:11 03/18/21 08:11 Labs: Abnormal Lab Results - Last 24 Hours (Table) 03/17/21 03/17/21 03/18/21 Range/Units 16:50 20:11 05:46 RBC (3.80-5.40) m/uL Hgb (11.4-16.0) gm/dL Hct (34.0-46.0) % RDW (11.5-15.5) % Plt Count (150-450) k/uL Lymphocytes # (1.0-4.8) k/uL Potassium (3.5-5.1) mmol/L Chloride (98-107) mmol/L BUN (7-17) mg/dL Creatinine (0.52-1.04) mg/dL Glucose (74-99) mg/dL POC Glucose (mg/dL) 198 H 203 H 127 H (75-99) mg/dL Calcium (8.4-10.2) mg/dL 03/18/21 03/18/21 03/18/21 Range/Units 08:11 08:11 11:52 RBC 2.39 L (3.80-5.40) m/uL Hgb 8.3 L (11.4-16.0) gm/dL Hct 23.8 L (34.0-46.0) % RDW 16.5 H (11.5-15.5) % Plt Count 52 L (150-450) k/uL Lymphocytes # 0.9 L (1.0-4.8) k/uL Potassium 3.3 L (3.5-5.1) mmol/L Chloride 108 H (98-107) mmol/L BUN 20 H (7-17) mg/dL Creatinine 1.58 H (0.52-1.04) mg/dL Glucose 109 H (74-99) mg/dL POC Glucose (mg/dL) 157 H (75-99) mg/dL Calcium 8.1 L (8.4-10.2) mg/dL Microbiology - Last 24 Hours (Table) 03/16/21 10:37 Urine Culture - Final Urine,Voided Assessment and Plan (1) Liver cirrhosis secondary to nonalcoholic steatohepatitis (YEUNG) Narrative/Plan: 65-year-old female who presented to the emergency department with complaints of dizziness and frequent falls. She has multiple medical comorbidities, but was also found to be in atrial fibrillation upon her admission into the emergency department. She has a history of decompensated cirrhosis of the liver related to nonalcoholic fatty steatosis. She has had multiple paracentesis in the past for ascites, however recently went to the [facility] and underwent a TIPS procedure on 02/04/2021. She was noted to have an elevated bilirubin upon admission at 4.5, therefore gastroenterology was consulted. Liver enzymes are consistent with underlying cirrhosis of the liver, however there may also be a component elevation to the bilirubin related to her recent TIPS procedure. Current Visit: No Status: Chronic Code(s): K75.81 - NONALCOHOLIC STEATOHEPATITIS (YEUNG); K74.60 - UNSPECIFIED CIRRHOSIS OF LIVER SNOMED Code(s): 231769328 (2) Dizziness Current Visit: Yes Status: Acute Code(s): R42 - DIZZINESS AND GIDDINESS SNOMED Code(s): 939466489 (3) Multiple falls Current Visit: Yes Status: Acute Code(s): R29.6 - REPEATED FALLS SNOMED Code(s): 414571196 Plan: Continue symptomatic and supportive care Daily CBC, CMP Cardiology on consult Avoid hepatotoxic medications Patient to keep follow-up appointment with Dr. Orona Thank you for this consultation, patient may be discharged home from a gastroenterology standpoint. We will sign off at this time. Dr. Gutierrez I agree with the dictator's note, documented as a scribe by Heather Christopher.
[2021-03-18] MEDS ORDERED: COSYNTROPIN 0.25 MG VIAL IVP ONE (15:58)
[2021-03-18 16:58] LABS: Glucose,Whole Blood 167 mg/dL (75-99)
--- NOTE | 2021-03-18 18:48 | PN ---
PROGRESS NOTE The patient is seen for followup for chronic kidney disease. The patient was admitted to the hospital with dizziness and falls. She was found to have sick sinus syndrome. Beta blockers were discontinued. She was noted to have pauses. Her heart rate is now staying 66-76 per minute. The patient has CKD stage 3 and follows at [facility]. Her creatinine has been about 1.5 mg/dL this whole admission. The patient is maintained on oral Lasix 40 mg p.o. b.i.d. EXAMINATION: On examination today, blood pressure is 102/62, heart rate 76 per minute. She is afebrile. Examination of the heart S1, S2. Examination of the lungs, bilateral breath sounds are heard. Abdomen is soft, nontender. Examination of lower extremities shows no significant edema. VIDEO CONTROL OPERATOR exam grossly intact. LAB: Show sodium 141, potassium 3.3, chloride 108, BUN 20, creatinine 1.58, hemoglobin 8.3 g/dL. ASSESSMENT: 1. Chronic kidney disease stage 3 secondary to nephrosclerosis, being followed at [facility]. 2. Mild volume overload maintained on oral Lasix. 3. Fall related to hypotension, bradycardia, improved, post discontinuation of beta blockers. 4. Acute kidney injury in December of 2020 with creatinine peaking at about 2.28 mg/dL at that time. PLAN: Continue current dose of diuretics. Follow up as outpatient with Nephrology. Consider cosyntropin stimulation test as serum cortisol was on the lower side at 8. The patient was on midodrine prior to admission for chronic hypotension. MMODL / IJN: [id number] /
[2021-03-18 20:19] LABS: Glucose,Whole Blood 209 mg/dL (75-99)
[2021-03-18] MEDS: MONTELUKAST 10 MG TAB PO SCH (20:47)
[2021-03-18] MEDS: ATORVASTATIN 40 MG TAB PO SCH (20:47)
--- NOTE | 2021-03-18 23:21 | P.PN ---
Subjective Progress Note Date: 03/18/21 Principal diagnosis: New onset atrial fibrillation multiple falls elevated total bilirubin 65-year-old female Admitted to the hospital with several comorbidities including heart failure, diabetes, liver, kidney disease,Hyperlipidemia, diabetes mellitus and ascites.Patient was sent from our services to the emergency room due to continue dizziness and frequent falls within the last 5 days. Patient noted to have ecchymosis to bilateral shoulders, and right lower extremity. Patient had extensive diagnostic workup in emergency department revealing atrial fibrillation with significant pauses. Patient diagnostic testing within patient normal limits of kidney dysfunction, thrombocytopenia, and elevated liver enzymes. Chest x-ray shows pulmonary congestion. Patient will be admitted to our services with cardiology consult, nephrology consult, gastroenterology consult. Mar 18 2021 evaluated patient this a.m. resting comfortably in bed. Patient endorses generalized weakness, shortness of breath with exertion, intermittent palpitations, and lower extremity edema. After discontinuation of Inderal no new pauses noted. Cardiology to hold on pacemaker due to beta-lina possibly causing 3 to 5 second pauses.Reviewed diagnostic testing labs consistent with patients baseline for liver function kidney function and thrombocytopenia. Awaiting recommendations from cardiology, nephrology gastroenterology. Objective - Vital Signs Vital signs: Vital Signs Temp 97 F L 03/18/21 16:00 Pulse 68 03/18/21 16:00 Resp 18 03/18/21 16:00 BP 125/58 03/18/21 16:00 Pulse Ox 95 03/18/21 16:00 Intake & Output 03/18/21 03/18/21 03/19/21 06:59 18:59 06:59 Intake Total 720 Output Total 500 2 360 Balance -500 718 -360 Weight 71.5 kg Intake: Oral 720 Output: Urine 500 360 Urine/Stool Mix 2 Other: Voiding Method Bedpan Bedpan # Voids 1 3 # Bowel Movements 2 - Constitutional General appearance: Present: mild distress - EENT Eyes: Present: EOMI, PERRLA ENT: Present: normal oropharynx Ears: bilateral: normal - Neck Neck: Present: normal ROM Thyroid: bilateral: normal size - Respiratory Respiratory: bilateral: diminished (Anterior and posterior lung win) - Cardiovascular Details: Atrial fibrillation Heart rate: 89 Rhythm: irregularly irregular Heart sounds: normal: S1, S2 Abnormal Heart Sounds: Present: systolic murmur - Peripheral edema leg Peripheral Edema: bilateral: 2+ ankle Peripheral Edema: bilateral: 3+ foot Peripheral Edema: bilateral: 3+ - Peripheral pulses radial pulse Peripheral Pulses: bilateral: Normal - Gastrointestinal Gastrointestinal Comment(s): Mild ascites noted - Integumentary Integumentary: Present: jaundiced - Neurologic Neurologic: Present: CNII-XII intact - Musculoskeletal Musculoskeletal: Present: generalized weakness - Psychiatric Psychiatric: Present: A&O x's 3, appropriate affect, intact judgment & insight - Allied health notes Allied health notes reviewed: nursing - Labs CBC & Chem 7: 03/18/21 08:11 03/18/21 08:11 Labs: Abnormal Lab Results - Last 24 Hours (Table) 03/18/21 03/18/21 03/18/21 Range/Units 05:46 08:11 08:11 RBC 2.39 L (3.80-5.40) m/uL Hgb 8.3 L (11.4-16.0) gm/dL Hct 23.8 L (34.0-46.0) % RDW 16.5 H (11.5-15.5) % Plt Count 52 L (150-450) k/uL Lymphocytes # 0.9 L (1.0-4.8) k/uL Potassium 3.3 L (3.5-5.1) mmol/L Chloride 108 H (98-107) mmol/L BUN 20 H (7-17) mg/dL Creatinine 1.58 H (0.52-1.04) mg/dL Glucose 109 H (74-99) mg/dL POC Glucose (mg/dL) 127 H (75-99) mg/dL Calcium 8.1 L (8.4-10.2) mg/dL 03/18/21 03/18/21 03/18/21 Range/Units 11:52 16:48 20:18 RBC (3.80-5.40) m/uL Hgb (11.4-16.0) gm/dL Hct (34.0-46.0) % RDW (11.5-15.5) % Plt Count (150-450) k/uL Lymphocytes # (1.0-4.8) k/uL Potassium (3.5-5.1) mmol/L Chloride (98-107) mmol/L BUN (7-17) mg/dL Creatinine (0.52-1.04) mg/dL Glucose (74-99) mg/dL POC Glucose (mg/dL) 157 H 167 H 209 H (75-99) mg/dL Calcium (8.4-10.2) mg/dL - Imaging and Cardiology Chest x-ray: report reviewed Assessment and Plan Assessment: Atrial fibrillation with frequent pauses Dizziness generalized weakness ascites History of coronary Artery Disease History of Cancer Heart Failure, Unspecified Fibromyalgia GERD/Reflux Hyperlipidemia Liver Disease Chronic kidney Non-ETOH cirrhosis History of esophageal varices thrombycytopenia IDDM with insulin pump, Recent TIPS at [facility] Plan: Atrial fibrillation with frequent pauses avoid beta-blockers, calcium channel blockers, and consultation with cardiology for recommendations and treatment plan thrombocytopenia continue to monitor platelet counts transfuse as needed elevated bilirubin consultation with gastroenterology for treatment plan and recommendations continue home medications continue to monitor vital signs and diagnostic testing further recommendations to come patient patient's Clinical condition Time with Patient: Greater than 30
[2021-03-19 06:05] LABS: Glucose,Whole Blood 217 mg/dL (75-99)
[2021-03-19] MEDS: MIDODRINE 5 MG TAB PO SCH (07:00)
[2021-03-19] MEDS: PANTOPRAZOLE 40 MG TABLET PO SCH (07:00)
[2021-03-19 07:09] VITALS: RESP 16
[2021-03-19] MEDS: INSULIN PUMP MEAL BOLUS 1 UNIT MISC MISCELLANE SCH ×2 (07:30→12:40)
--- NOTE | 2021-03-19 09:50 | P.PN ---
Subjective Progress Note Date: 03/19/21 Principal diagnosis: This is a 65-year-old female followed up for chronic kidney disease. Her creatinine is about 1.5 and stable. She came in because of dizziness and weakness, and falls. She was found to have sick sinus syndrome, frequent pauses in her atrial for ablation. Beta blockers were discontinued. She is much better improved denies any dizziness chest pain shortness of breath good appetite She wants to be discharged Vital signs are stable blood pressure in the 105-138 systolic. Heart rate in the 70s Objective - Vital Signs Vital signs: Vital Signs Temp 97.8 F 03/19/21 04:00 Pulse 70 03/19/21 04:00 Resp 16 03/19/21 04:00 BP 105/33 03/19/21 04:00 Pulse Ox 94 L 03/19/21 04:00 Intake & Output 03/18/21 03/19/21 03/19/21 18:59 06:59 18:59 Intake Total 720 Output Total 2 760 Balance 718 -760 Weight 71 kg Intake: Oral 720 Output: Urine 760 Urine/Stool Mix 2 Other: Voiding Method Bedpan Bedpan # Voids 3 # Bowel Movements 2 On exam she is awake alert oriented comfortable A chin exam no JVP neck is supple no facial asymmetry Lungs are significant for occasional bilateral coarse crackle or at bases, Good air entry bilaterally A chest x-ray shows prominence of the interstitium and central vascularity patchy by a basilar density Heart sounds unremarkable for any murmur rub gallop Abdomen soft nontender. Extremity exam was no edema and there is some bruising of her right toes on the middle phalanx across all her toes from the fall. Neurologically awake alert oriented - Labs CBC & Chem 7: 03/18/21 08:11 03/18/21 08:11 Labs: Abnormal Lab Results - Last 24 Hours (Table) 03/18/21 03/18/21 03/18/21 Range/Units 11:52 16:48 20:18 POC Glucose (mg/dL) 157 H 167 H 209 H (75-99) mg/dL 03/19/21 Range/Units 06:04 POC Glucose (mg/dL) 217 H (75-99) mg/dL Assessment and Plan Assessment: Impression 1. Chronic kidney disease, stage III secondary to nephrosclerosis Baseline creatinine about 1.5-2. 2. Blood pressure controlled 3. Atrial fibrillation, sick sinus syndrome. Off off beta blockers. 4. History of fall Recommendation Patient can be discharged from a nephrological perspective and followed up in the office. Is under our care as an outpatient. Maintain current medications Check blood pressures at home with a heart rate and rate 50s 2-3 times a week and bring the records to us for follow-up
[2021-03-19] MEDS: LACTULOSE 20 GM/30 ML CUP PO SCH (10:06)
[2021-03-19] MEDS: EZETIMIBE 10 MG TAB PO SCH (10:07)
[2021-03-19] MEDS: VITAMIN A 10,000 UNIT (3000 MCG) CAPSULE PO SCH (10:07)
[2021-03-19] MEDS: FERROUS SULFATE 325 MG TAB PO SCH (10:07)
[2021-03-19] MEDS: RIFAXIMIN 550 MG TABLET PO SCH (10:07)
[2021-03-19] MEDS: FUROSEMIDE 40 MG TAB PO SCH (10:07)
[2021-03-19 12:31] LABS: Glucose,Whole Blood 254 mg/dL (75-99)
[2021-03-19 12:41] VITALS: BP 126/58; PULSE 74; TEMP 97.8
--- NOTE | 2021-03-19 13:30 | P.PN ---
Subjective Progress Note Date: 03/19/21 HISTORY OF PRESENTING ILLNESS This is a pleasant 65-year-old female past medical history significant for alcoholic liver cirrhosis, recurrent ascites, esophageal varices, pancytopenia, diabetes mellitus, dyslipidemia, coronary artery disease exact details unavailable and paroxysmal atrial fibrillation not on senior living anticoagulation secondary to liver disease and frequent falls. She follows in the office with a electrical maintenance supervisor at the [facility]. We have been asked to see in consultation for atrial fibrillation with pauses. She presented to the hospital with symptoms of dizziness and multiple falls. She states this has been going on since Sunday. She becomes dizzy, lightheaded and weak and then falls. It is unclear if there is actually loss of consciousness. According to the patient she underwent cardiac catheterization last year at the [facility] and there is one area of blockage but no PCI or angioplasty was performed. She does recall being told she has atrial fibrillation however she is not on any anticoagulant due to her frequent falls and liver disease. Tele metry tracings indicate she is in atrial fibrillation with frequent pauses up to 5 seconds. She does take propanolol at home, last dose was yesterday morning. It has been held since admission. 03/18/2021 Patient seen and examined resting comfortably in bed in no acute distress. She denies symptoms of chest pain or worsening shortness of breath. Telemetry tracings reveals she is maintaining sinus mechanism with no further episodes of pauses or atrial fibrillation. Blood pressure 120/77 heart rate 66 afebrile maintaining oxygen saturation on room air. Laboratory data reviewed, WBC 5, hemoglobin 8.3, platelets 52, sodium 141, potassium 3.3 and creatinine 1.58. Repeat chest x-ray today reveals improvement in aeration. 03/19/2021 Patient examined this morning at the bedside. Patient denies chest pain or pressure. She denies shortness of breath. No further significant pauses noted on telemetry. He is maintaining sinus mechanism on telemetry. PHYSICAL EXAMINATION CONSTITUTIONAL: No apparent distress. HEENT: Head is normocephalic. Pupils are equal, round. Sclerae anicteric. Mucous membranes of the mouth are moist. No JVD. No carotid bruit. CHEST EXAMINATION: Clear to auscultation bilaterally. No rales, wheezes or rhonchi. No chest wall tenderness is noted on palpation or with deep breathing. HEART EXAMINATION: Regular and rhythm. S1, S2 heard. Systolic ejection murmur at the base, no gallops or rub. EXTREMITIES: 2+ peripheral pulses, no lower extremity edema ASSESSMENT Paroxysmal atrial fibrillation with variable ventricular rates, new onset Sick sinus syndrome, up to 5 second pauses Chronic liver disease Dyslipidemia Pancytopenia Esophageal varices Diabetes mellitus Coronary artery disease, exact details unavailable Chronic kidney disease Hypokalemia PLAN No plans for permanent pacemaker implantation. Discontinue propanolol permanently Patient is stable for discharge from a cardiac standpoint We will sign off. Please reconsult if needed. Nurse Practitioner note has been reviewed, I agree with a documented findings and plan of care. Patient was seen and examined. Objective - Vital Signs Vital signs: Vital Signs Temp 97.8 F 03/19/21 12:40 Pulse 74 03/19/21 12:40 Resp 16 03/19/21 12:40 BP 126/58 03/19/21 12:40 Pulse Ox 95 03/19/21 12:40 Intake & Output 03/18/21 03/19/21 03/19/21 18:59 06:59 18:59 Intake Total 720 240 Output Total 2 760 Balance 718 -760 240 Weight 71 kg Intake: Oral 720 240 Output: Urine 760 Urine/Stool Mix 2 Other: Voiding Method Bedpan Bedpan # Voids 3 # Bowel Movements 2 - Labs CBC & Chem 7: 03/18/21 08:11 03/18/21 08:11 Labs: Abnormal Lab Results - Last 24 Hours (Table) 03/18/21 03/18/21 03/19/21 Range/Units 16:48 20:18 06:04 POC Glucose (mg/dL) 167 H 209 H 217 H (75-99) mg/dL 03/19/21 Range/Units 12:18 POC Glucose (mg/dL) 254 H (75-99) mg/dL
--- NOTE | 2021-03-19 15:32 | P.DS ---
Providers Date of admission: 03/15/21 17:46 Attending physician: Dario Underwood Consults: 03/15/21 18:42 Consult Physician Urgent Consulting Provider: Tami Schafer Consult Reason/Comments: GILDA Do you want consulting provider notified?: Yes Primary care physician: Dario Underwood Hospital Course: 65-year-old female is admitted for the dizziness and frequent falls. Patient had atrial fibrillation with a variable ventricular rate and was diagnosed with sick sinus syndrome. Patient's beta lina was discontinued and patient is being monitored at this time. Patient was having 5 second sinus pauses because of which are beta lina was discontinued. Patient had history of for cirrhosis and had TIPS procedures. Constitutional: Denied any fatigue denied any fever. Cardio vascular: denied any chest pain, palpitations Gastrointestinal denied any nausea vomiting Pulmonary: Denied any shortness of breath cough Neurologic denied any new focal deficits PHYSICAL EXAMINATION: GENERAL: The patient is alert and oriented x3, not in any acute distress. Well developed, well nourished. HEENT: Pupils are round and equally reacting to light. EOMI. No scleral icterus. No conjunctival pallor. Normocephalic, atraumatic. No pharyngeal erythema. No thyromegaly. CARDIOVASCULAR: S1 and S2 present. No murmurs, rubs, or gallops. PULMONARY: Chest is clear to auscultation, no wheezing or crackles. ABDOMEN: Soft, nontender, nondistended, normoactive bowel sounds. No palpable organomegaly. MUSCULOSKELETAL: No joint swelling or deformity. EXTREMITIES: No cyanosis, clubbing, or pedal edema. NEUROLOGICAL: Gross neurological examination did not reveal any focal deficits. SKIN: No rashes. Plan: Frequent falls and possible sinus syndrome: Improved with discontinuation of propranolol, which has been discontinued permanently. Did not require pacemaker. -Atrial fibrillation presently not on any beta lina because of frequent sinus pauses -Coronary artery disease -History of cirrhosis status and esophageal varices status post TIA. His procedure with the chronic elevation of liver enzymes and bilirubin -Insulin-dependent diabetes mellitus on insulin pump which will be continued -Chronic kidney disease stage III patient's present creatinine is at her baseline - hypokalemia: Potassium replaced Patient will be discharged home, propranolol has been discontinued. Follow-up with PCP Dr. Underwood and community artist Dr. Logan. Patient Condition at Discharge: Stable Plan - Discharge Summary Discharge Rx Participant: No New Discharge Prescriptions: Continue Montelukast [Singulair] 10 mg PO HS INSULIN LISPRO (For Pump) [humaLOG (For Pump)] 0.01 units SQ-PUMP CONTINUOUS Ezetimibe [Zetia] 10 mg PO DAILY Sertraline [Zoloft] 25 mg PO DAILY EPINEPHrine [Epipen 2-Sanchez] 0.3 mg IM ONCE PRN PRN Reason: Anaphylaxis Lactulose 20 gm PO DAILY Ergocalciferol (Vitamin D2) [Vitamin D2] 50,000 unit PO JOE Atorvastatin [Lipitor] 40 mg PO HS Vitamin A Acetate [Vitamin A] 10,000 unit SL DAILY Furosemide [Lasix] 40 mg PO BID Potassium Chloride ER [K-Dur 20] 20 meq PO DAILY Rifaximin [Xifaxan] 550 mg PO BID Midodrine HCl [ProAmatine] 20 mg PO BID Pantoprazole Sodium [Protonix] 40 mg PO DAILY Ferrous Sulfate [Iron] 325 mg PO DAILY Zinc 50 mg PO DAILY Discontinued Propranolol [Inderal] 10 mg PO BID Discharge Medication List Montelukast [Singulair] 10 mg PO HS 07/10/14 [History] Ezetimibe [Zetia] 10 mg PO DAILY 09/04/16 [History] INSULIN LISPRO (For Pump) [humaLOG (For Pump)] 0.01 units SQ-PUMP CONTINUOUS 09/04/16 [History] Sertraline [Zoloft] 25 mg PO DAILY 01/12/17 [History] EPINEPHrine [Epipen 2-Sanchez] 0.3 mg IM ONCE PRN 11/23/17 [History] Lactulose 20 gm PO DAILY 08/22/18 [History] Ergocalciferol (Vitamin D2) [Vitamin D2] 50,000 unit PO JOE 09/17/18 [History] Atorvastatin [Lipitor] 40 mg PO HS 02/03/20 [History] Furosemide [Lasix] 40 mg PO BID 02/03/20 [History] Vitamin A Acetate [Vitamin A] 10,000 unit SL DAILY 02/03/20 [History] Potassium Chloride ER [K-Dur 20] 20 meq PO DAILY 06/24/20 [History] Ferrous Sulfate [Iron] 325 mg PO DAILY 01/26/21 [History] Midodrine HCl [ProAmatine] 20 mg PO BID 03/15/21 [History] Pantoprazole Sodium [Protonix] 40 mg PO DAILY 03/15/21 [History] Rifaximin [Xifaxan] 550 mg PO BID 03/15/21 [History] Zinc 50 mg PO DAILY 03/15/21 [History] Follow up Appointment(s)/Referral(s): Dario Underwood MD [Primary Care Provider] - 3 Days (office is closed please call to make a follow up appointment within 1 week) Basia Logan MD [STAFF PHYSICIAN] - 1 Week (office is closed please call the office to make a follow up appointment within 1 week) Ambulatory/Diagnostic Orders: Basic Metabolic Panel [LAB.AMB] Time Frame: 3 Days, Location: None Selected Discharge Disposition: HOME SELF-CARE
[2021-03-19] MEDS ORDERED: POTASSIUM CHLORIDE ER 20 MEQ TAB.ER PO STA (15:36)
== END 2021-03-19 15:55 | disposition home or self-care (01) | DRG 308 ==
LOC: EC 15:25 → 3SCARD 17:46
PROVIDERS: ADMIT Family Medicine; ATTEND Family Medicine
DX: I49.5 Sick sinus syndrome (principal); I50.33 Acute on chronic diastolic (congestive) heart failure; D61.818 Other pancytopenia; N17.9 Acute kidney failure, unspecified; K76.6 Portal hypertension; I13.0 Hypertensive heart and chronic kidney disease with heart failure and stage 1 through stage 4 chronic kidney disease, or unspecified chronic kidney disease; I85.10 Secondary esophageal varices without bleeding; E11.22 Type 2 diabetes mellitus with diabetic chronic kidney disease; Z79.4 Long term (current) use of insulin; I25.10 Atherosclerotic heart disease of native coronary artery without angina pectoris; E78.5 Hyperlipidemia, unspecified; M79.7 Fibromyalgia; Z87.891 Personal history of nicotine dependence; Z80.8 Family history of malignant neoplasm of other organs or systems; Z82.49 Family history of ischemic heart disease and other diseases of the circulatory system; R29.6 Repeated falls; I48.0 Paroxysmal atrial fibrillation; Z80.3 Family history of malignant neoplasm of breast; Z88.2 Allergy status to sulfonamides; K21.9 Gastro-esophageal reflux disease without esophagitis; Z96.41 Presence of insulin pump (external) (internal); Z85.41 Personal history of malignant neoplasm of cervix uteri; N18.30 Chronic kidney disease, stage 3 unspecified; I95.9 Hypotension, unspecified; E87.6 Hypokalemia; R55 Syncope and collapse; K31.89 Other diseases of stomach and duodenum; Z76.82 Awaiting organ transplant status; K75.81 Nonalcoholic steatohepatitis (NASH); K70.31 Alcoholic cirrhosis of liver with ascites; I27.20 Pulmonary hypertension, unspecified; Z86.73 Personal history of transient ischemic attack (TIA), and cerebral infarction without residual deficits; Z90.710 Acquired absence of both cervix and uterus; T50.2X5A Adverse effect of carbonic-anhydrase inhibitors, benzothiadiazides and other diuretics, initial encounter
CPT/HCPCS: 36415; 70450; 71045; 71046; 80048; 80053; 81001; 82024; 82533; 83036; 83605; 83735; 83880; 84443; 84484; 85025; 85027; 85610; 85730; 87086; 87635; 93005; 93306; 99285

== ENCOUNTER → 2021-03-23 | Outpatient (CLI) | payer MEDICARE ==
--- NOTE | 2021-03-23 12:05 | US ---
EXAMINATION TYPE: US venous doppler duplex LE DATE OF EXAM: 03/23/2021 11:40 AM COMPARISON: NONE CLINICAL HISTORY: R22.40 Swelling bilateral legs. SIDE PERFORMED: Bilateral TECHNIQUE: The lower extremity deep venous system is examined utilizing real time linear array sonog sai with graded compression, doppler sonography and color-flow sonography. VESSELS IMAGED: Common Femoral Vein Deep Femoral Vein Greater Saphenous Vein * Femoral Vein Popliteal Vein Small Saphenous Vein * Proximal Calf Veins (* superficial vessels) , negative for DVT at the bilateral lower extremity veins. Right Leg: Negative for DVT Left Leg: Negative for DVT IMPRESSION: 1. No evidence of deep venous thrombosis in the bilateral lower extremity veins. instructional technologist called Preliminary results called to Vern Neal NP
== END | disposition home or self-care (01) ==
LOC: RADUSWWP 11:15
PROVIDERS: ATTEND Family Medicine
DX: R22.43 Localized swelling, mass and lump, lower limb, bilateral (principal)
CPT/HCPCS: 93970

== ENCOUNTER → 2021-07-06 | Outpatient (CLI) | payer MEDICARE ==
[2021-07-06 20:12] LABS: INR 1.15 (0.90-1.11); Prothrombin Time 12.4 sec (9.9-11.9)
[2021-07-06 20:44] LABS: Basophils # (A) 0.05 X 10*3/uL (0.00-0.10); Basophils % (A) 1.3 %; Eosinophils # (A) 0.24 X 10*3/uL (0.04-0.35); HCT 27.1 % (37.2-46.3); Lymphocytes # (A) 0.53 X 10*3/uL (0.90-5.00); Lymphocytes % (A) 13.3 %; MCH 32.1 pg (27.0-32.0); MCHC 33.2 g/dL (32.0-37.0); MCV 96.8 fL (80.0-97.0); Mean Platelet Volume 11.5 fL (9.5-12.2); Monocytes # (A) 0.37 X 10*3/uL (0.20-1.00); Monocytes % (A) 9.3 %; Neutrophils # (A) 2.78 X 10*3/uL (1.80-7.70); Neutrophils % (A) 69.8 %; Platelet Count 72 X 10*3/uL (140-440); RDW 15.9 % (11.5-14.5); WBC 3.98 X 10*3/uL (4.50-10.00)
[2021-07-07 02:28] LABS: African American GFR (CKD) 48.8 (60.0-200.0); Albumin 3.2 g/dL (3.80-4.90); Albumin/Globulin Ratio 1.19 (1.60-3.17); Anion Gap 8.4 mmol/L (4.00-12.00); BUN/Creat Ratio 10.77 Ratio (12.00-20.00); Calcium 8.1 mg/dL (8.7-10.3); Carbon Dioxide 21.6 mmol/L (21.6-31.8); Globulin 2.7 g/dL (1.6-3.3); Non-African American GFR(CKD) 42.1 (60.0-200.0); Potassium 4.2 mmol/L (3.5-5.5); Total Bilirubin 2.7 mg/dL (0.3-1.2); Total Protein 5.9 g/dL (6.2-8.2)
== END | disposition home or self-care (01) ==
LOC: LABWHC1 11:31
PROVIDERS: ATTEND Internal Medicine Gastroenterology
DX: K74.60 Unspecified cirrhosis of liver (principal)
CPT/HCPCS: 36415; 80053; 85025; 85610

== ENCOUNTER 2021-07-25 17:25 | Inpatient (IN) | payer MEDICARE ==
[2021-07-25 19:37] LABS: Basophils % (A) 1 %; Eosinophils # (A) 0.2 k/uL (0-0.7); Eosinophils % (A) 7 %; HCT 29.1 % (34.0-46.0); HGB 10.1 gm/dL (11.4-16.0); Lymphocytes # (A) 0.3 k/uL (1.0-4.8); Lymphocytes % (A) 14 %; MCH 33.5 pg (25.0-35.0); MCHC 34.8 g/dL (31.0-37.0); MCV 96.3 fL (80.0-100.0); Mean Platelet Volume 9.5; Monocytes # (A) 0.2 k/uL (0-1.0); Monocytes % (A) 7 %; Neutrophils # (A) 1.5 k/uL (1.3-7.7); Neutrophils % (A) 68 %; Poikilocytosis Slight; RBC 3.02 m/uL (3.80-5.40); RDW 15.4 % (11.5-15.5); WBC 2.2 k/uL (3.8-10.6)
[2021-07-25 19:48] LABS: Albumin 2.9 g/dL (3.5-5.0); Calcium 8.7 mg/dL (8.4-10.2); Potassium 4.1 mmol/L (3.5-5.1)
[2021-07-25 19:53] LABS: Platelet Count 53 k/uL (150-450)
[2021-07-25 19:57] LABS: INR 1.2 (<1.2); Prothrombin Time 12.4 sec (9.0-12.0)
[2021-07-25] MEDS ORDERED: IPRATROPIUM-ALBUTEROL 3 ML NEB INHALATION STA (20:33)
--- NOTE | 2021-07-25 20:36 | ED ---
General Adult HPI - General Chief complaint: Shortness of Breath Stated complaint: cough, SOB Time Seen by Provider: 07/25/21 19:57 Source: patient, family, RN notes reviewed Mode of arrival: ambulatory Limitations: no limitations - History of Present Illness Initial comments: Patient is a pleasant 58-year-old female presenting to the emergency department complaints of cough and dyspnea. Symptoms have progressed with the past several weeks. Patient does have known liver disease and is pending liver transplant. Patient does have some mild diffuse swelling. No fevers. Patient was exposed to 2 children recently that did have colds. Patient has had rhinorrhea. Rhinorrhea is clear. No fevers of herself. Patient does have history of asthma and previous history of smoking. - Related Data Home Medications Medication Instructions Recorded Confirmed Montelukast [Singulair] 10 mg PO DAILY 07/10/14 07/25/21 Ezetimibe [Zetia] 10 mg PO DAILY 09/04/16 07/25/21 INSULIN LISPRO (For Pump) [humaLOG 0.01 units SQ-PUMP CONTINUOUS 09/04/16 07/25/21 (For Pump)] Sertraline [Zoloft] 25 mg PO DAILY 01/12/17 07/25/21 EPINEPHrine [Epipen 2-Sanchez] 0.3 mg IM ONCE PRN 11/23/17 07/25/21 Lactulose 20 gm PO DAILY 08/22/18 07/25/21 Ergocalciferol (Vitamin D2) 50,000 unit PO JOE 09/17/18 07/25/21 [Vitamin D2] Atorvastatin [Lipitor] 40 mg PO HS 02/03/20 07/25/21 Vitamin A Acetate [Vitamin A] 20,000 unit SL DAILY 02/03/20 07/25/21 Potassium Chloride ER [K-Dur 20] 20 meq PO DAILY 06/24/20 07/25/21 Ferrous Sulfate [Iron] 325 mg PO DAILY 01/26/21 07/25/21 Midodrine HCl [ProAmatine] 10 mg PO TID PRN 03/15/21 07/25/21 Pantoprazole Sodium [Protonix] 40 mg PO DAILY 03/15/21 07/25/21 Rifaximin [Xifaxan] 550 mg PO BID 03/15/21 07/25/21 Zinc 50 mg PO DAILY 03/15/21 07/25/21 Furosemide [Lasix] 20 mg PO BID 07/25/21 07/25/21 Allergies Allergy/AdvReac Type Severity Reaction Status Date / Time doxycycline Allergy Rash/Hives Verified 07/25/21 20:50 iodine Allergy Rash/Hives Verified 07/25/21 20:50 Penicillins Allergy Rash/Hives Verified 07/25/21 20:50 shellfish derived Allergy Rash/Hives Verified 07/25/21 20:50 Sulfa (Sulfonamide Allergy Rash/Hives Verified 07/25/21 20:50 Antibiotics) venom-honey bee Allergy Anaphylaxis Verified 07/25/21 20:50 [bee venom (honey bee)] Review of Systems ROS Statement: Those systems with pertinent positive or pertinent negative responses have been documented in the HPI. ROS Other: All systems not noted in ROS Statement are negative. Constitutional: Denies: fever Eyes: Denies: eye pain ENT: Denies: ear pain Respiratory: Reports: cough, dyspnea Cardiovascular: Denies: chest pain Endocrine: Reports: fatigue Gastrointestinal: Denies: abdominal pain Genitourinary: Denies: dysuria Musculoskeletal: Denies: back pain Skin: Denies: rash Neurological: Denies: weakness Past Medical History Past Medical History: Coronary Artery Disease (CAD), Cancer, Chest Pain / Angina, Heart Failure, Diabetes Mellitus, Fibromyalgia, GERD/Reflux, Hyperlipidemia, Liver Disease, Renal Disease, Skin Disorder Additional Past Medical History / Comment(s): Non-ETOH cirrhosis, ascities, esophageal varices, pancytopenia, thrombycytopenia, anemia, IDDM with insulin pump, several nodules both lungs being monitored, urinary leakage at times and pt states she has diarrhea much of the time, psoriasis, cervical cancer, pt states 2 blockages in back of heart, awaiting liver transplant and CABG at [facility] in [place]. hx migraines, 2 seizures post back surgery, hiatal hernia, patient is undergoing work up for a possible TIPS at [facility] History of Any Multi-Drug Resistant Organisms: None Reported Past Surgical History: Back Surgery, Breast Surgery, Cholecystectomy, Heart Catheterization, Hysterectomy, Orthopedic Surgery, Tonsillectomy, Tubal Ligation Additional Past Surgical History / Comment(s): multi large volume Paracentesis, EGD with banded esophageal varices, colonoscopies, bilateral rotator cuff repai rs, bilateral breast bx-benign, back surgery in 2015, TIPS Past Anesthesia/Blood Transfusion Reactions: Previous Problems w/ Anesthesia, Family History of Problems w/ Anesthesia, Motion Sickness Additional Past Anesthesia/Blood Transfusion Reaction / Comment(s): difficulty breathing when coming out of anesthesia; difficulty waking up. Hypotension with general anesthesia. blood transfusions without reaction. sister- slow coming out and PONV Past Psychological History: No Psychological Hx Reported Smoking Status: Former smoker Past Alcohol Use History: None Reported Past Drug Use History: None Reported - Past Family History Mother Family Medical History: Cancer Additional Family Medical History / Comment(s): skin cancer. Father Family Medical History: Coronary Artery Disease (CAD) Additional Family Medical History / Comment(s): cabg/pacemaker Brother(s) Family Medical History: Cancer Sister(s) Family Medical History: Cancer, Deep Vein Thrombosis (DVT) Additional Family Medical History / Comment(s): Breast CA. General Exam Limitations: no limitations General appearance: alert, in no apparent distress Head exam: Present: normocephalic Eye exam: Present: normal appearance ENT exam: Present: normal oropharynx Neck exam: Present: normal inspection Respiratory exam: Present: wheezes, decreased breath sounds Cardiovascular Exam: Present: regular rate, normal rhythm GI/Abdominal exam: Present: soft, distended (Moderate ascites). Absent: tenderness, guarding, rebound, rigid Extremities exam: Present: pedal edema (+1 bilateral), other (Clubbing of the finger and toenails). Absent: calf tenderness Neurological exam: Present: alert Psychiatric exam: Present: normal affect, normal mood Skin exam: Present: normal color Course Vital Signs 07/25/21 07/25/21 07/25/21 18:35 20:06 20:07 Temperature 98.5 F Pulse Rate 81 84 Respiratory 18 25 H 18 Rate Blood Pressure 150/66 153/86 O2 Sat by Pulse 93 L 97 Oximetry 07/25/21 07/25/21 21:29 21:39 Temperature Pulse Rate 73 89 Respiratory Rate Blood Pressure O2 Sat by Pulse Oximetry EKG Findings - EKG Comments: EKG Findings:: Sinus rhythm with rate of 82. PA 96. QRS 72. QT 398. QTC 464. Normal axis. Normal QRS. No acute ST change. Medical Decision Making - Medical Decision Making Patient reevaluated with mild improvement. Patient and family updated on results and plan. Case was discussed with practitioner Vern, covering for Dr. Underwood, who will admit. - Lab Data Result diagrams: 07/25/21 19:19 07/25/21 19:19 Lab Results 07/25/21 07/25/21 07/25/21 Range/Units 19:19 19:19 19:19 WBC 2.2 L (3.8-10.6) k/uL RBC 3.02 L (3.80-5.40) m/uL Hgb 10.1 L (11.4-16.0) gm/dL Hct 29.1 L (34.0-46.0) % MCV 96.3 (80.0-100.0) fL MCH 33.5 (25.0-35.0) pg MCHC 34.8 (31.0-37.0) g/dL RDW 15.4 (11.5-15.5) % Plt Count 53 L (150-450) k/uL MPV 9.5 Neutrophils % 68 % Lymphocytes % 14 % Monocytes % 7 % Eosinophils % 7 % Basophils % 1 % Neutrophils # 1.5 (1.3-7.7) k/uL Lymphocytes # 0.3 L (1.0-4.8) k/uL Monocytes # 0.2 (0-1.0) k/uL Eosinophils # 0.2 (0-0.7) k/uL Basophils # 0.0 (0-0.2) k/uL Poikilocytosis Slight PT 12.4 H (9.0-12.0) sec INR 1.2 H (<1.2) APTT 27.0 (22.0-30.0) sec Sodium 136 L (137-145) mmol/L Potassium 4.1 (3.5-5.1) mmol/L Chloride 107 (98-107) mmol/L Carbon Dioxide 23 (22-30) mmol/L Anion Gap 6 mmol/L BUN 14 (7-17) mg/dL Creatinine 1.08 H (0.52-1.04) mg/dL Est GFR (CKD-EPI)AfAm 61 (>60 ml/min/1.73 sqM) Est GFR (CKD-EPI)NonAf 53 (>60 ml/min/1.73 sqM) Glucose 89 (74-99) mg/dL Plasma Lactic Acid Juan (0.7-2.0) mmol/L Calcium 8.7 (8.4-10.2) mg/dL Total Bilirubin 3.0 H (0.2-1.3) mg/dL AST 50 H (14-36) U/L ALT 22 (4-34) U/L Alkaline Phosphatase 119 (38-126) U/L Troponin I (0.000-0.034) ng/mL NT-Pro-B Natriuret Pep pg/mL Total Protein 6.0 L (6.3-8.2) g/dL Albumin 2.9 L (3.5-5.0) g/dL Coronavirus (PCR) (Not Detectd) Influenza Type A RNA (Not Detectd) Influenza Type B (PCR) (Not Detectd) 07/25/21 07/25/21 07/25/21 Range/Units 19:19 19:19 19:19 WBC (3.8-10.6) k/uL RBC (3.80-5.40) m/uL Hgb (11.4-16.0) gm/dL Hct (34.0-46.0) % MCV (80.0-100.0) fL MCH (25.0-35.0) pg MCHC (31.0-37.0) g/dL RDW (11.5-15.5) % Plt Count (150-450) k/uL MPV Neutrophils % % Lymphocytes % % Monocytes % % Eosinophils % % Basophils % % Neutrophils # (1.3-7.7) k/uL Lymphocytes # (1.0-4.8) k/uL Monocytes # (0-1.0) k/uL Eosinophils # (0-0.7) k/uL Basophils # (0-0.2) k/uL Poikilocytosis PT (9.0-12.0) sec INR (<1.2) APTT (22.0-30.0) sec Sodium (137-145) mmol/L Potassium (3.5-5.1) mmol/L Chloride (98-107) mmol/L Carbon Dioxide (22-30) mmol/L Anion Gap mmol/L BUN (7-17) mg/dL Creatinine (0.52-1.04) mg/dL Est GFR (CKD-EPI)AfAm (>60 ml/min/1.73 sqM) Est GFR (CKD-EPI)NonAf (>60 ml/min/1.73 sqM) Glucose (74-99) mg/dL Plasma Lactic Acid Juan 1.3 (0.7-2.0) mmol/L Calcium (8.4-10.2) mg/dL Total Bilirubin (0.2-1.3) mg/dL AST (14-36) U/L ALT (4-34) U/L Alkaline Phosphatase (38-126) U/L Troponin I <0.012 (0.000-0.034) ng/mL NT-Pro-B Natriuret Pep 1510 pg/mL Total Protein (6.3-8.2) g/dL Albumin (3.5-5.0) g/dL Coronavirus (PCR) (Not Detectd) Influenza Type A RNA (Not Detectd) Influenza Type B (PCR) (Not Detectd) 07/25/21 07/25/21 07/25/21 Range/Units 21:00 21:00 21:00 WBC (3.8-10.6) k/uL RBC (3.80-5.40) m/uL Hgb (11.4-16.0) gm/dL Hct (34.0-46.0) % MCV (80.0-100.0) fL MCH (25.0-35.0) pg MCHC (31.0-37.0) g/dL RDW (11.5-15.5) % Plt Count (150-450) k/uL MPV Neutrophils % % Lymphocytes % % Monocytes % % Eosinophils % % Basophils % % Neutrophils # (1.3-7.7) k/uL Lymphocytes # (1.0-4.8) k/uL Monocytes # (0-1.0) k/uL Eosinophils # (0-0.7) k/uL Basophils # (0-0.2) k/uL Poikilocytosis PT (9.0-12.0) sec INR (<1.2) APTT (22.0-30.0) sec Sodium (137-145) mmol/L Potassium (3.5-5.1) mmol/L Chloride (98-107) mmol/L Carbon Dioxide (22-30) mmol/L Anion Gap mmol/L BUN (7-17) mg/dL Creatinine (0.52-1.04) mg/dL Est GFR (CKD-EPI)AfAm (>60 ml/min/1.73 sqM) Est GFR (CKD-EPI)NonAf (>60 ml/min/1.73 sqM) Glucose (74-99) mg/dL Plasma Lactic Acid Juan 1.4 (0.7-2.0) mmol/L Calcium (8.4-10.2) mg/dL Total Bilirubin (0.2-1.3) mg/dL AST (14-36) U/L ALT (4-34) U/L Alkaline Phosphatase (38-126) U/L Troponin I (0.000-0.034) ng/mL NT-Pro-B Natriuret Pep pg/mL Total Protein (6.3-8.2) g/dL Albumin (3.5-5.0) g/dL Coronavirus (PCR) Not Detected (Not Detectd) Influenza Type A RNA Not Detected (Not Detectd) Influenza Type B (PCR) Not Detected (Not Detectd) Disposition Clinical Impression: Acute exacerbation of chronic obstructive pulmonary disease Disposition: ADMITTED IP TO THIS HOSP Is patient prescribed a controlled substance at d/c from ED?: No Referrals: Dario Underwood MD [Primary Care Provider] - 1-2 days Decision Time: 21:59
--- NOTE | 2021-07-25 20:54 | XR ---
EXAMINATION TYPE: XR chest 2V DATE OF EXAM: 07/25/2021 COMPARISON: 03/18/2021 HISTORY: Short of breath TECHNIQUE: FINDINGS: There is poor inspiration. There is some atelectasis and pleural reaction at the lung bases . There is mild pulmonary congestion. Heart is enlarged. IMPRESSION: There is evidence for some mild heart failure which is improved compared to old exam.
[2021-07-25] MEDS ORDERED: FUROSEMIDE 10 MG/ML 2 ML VIAL IV ONE (21:49)
[2021-07-25] MEDS ORDERED: IPRATROPIUM-ALBUTEROL 3 ML NEB INHALATION PRN (21:54)
[2021-07-25] MEDS ORDERED: methylPREDNISolone SOD SUCCI 125 MG/2 ML VIAL IV STA (21:54)
[2021-07-25] MEDS ORDERED: LEVOFLOXACIN 750MG-D5W PMX 750 MG in DEXTROSE/WATER 1 150ML.BAG IVPB STA (21:58)
[2021-07-25] MEDS ORDERED: INSULIN LISPRO (For Pump) 100 UNIT/ML VIAL SQ-PUMP SCH (22:45)
[2021-07-26] MEDS: methylPREDNISolone SOD SUCCI 125 MG/2 ML VIAL IV SCH ×3 (01:34→13:15)
[2021-07-26] MEDS ORDERED: INSULIN PUMP BASAL RATES 1 EACH MISC MISCELLANE PRN (02:06)
[2021-07-26] MEDS ORDERED: INSULIN ASPART (NovoLOG) 100 UNIT/ML VIAL SQ PRN (02:06)
[2021-07-26] MEDS ORDERED: INSPUCOR MISCELLANE PRN (02:06)
[2021-07-26 05:05] LABS: ALT 22 U/L (4-34); AST 49 U/L (14-36); African American GFR (CKD) 61 (>60 ml/min/1.73 sqM); Albumin 2.6 g/dL (3.5-5.0); Albumin/Globulin Ratio 0.9; Alkaline Phosphatase 106 U/L (38-126); Anion Gap 8 mmol/L; Blood Urea Nitrogen 14 mg/dL (7-17); Calcium 8.4 mg/dL (8.4-10.2); Carbon Dioxide 19 mmol/L (22-30); Chloride 104 mmol/L (98-107); Glucose 255 mg/dL (74-99); Non-African American GFR(CKD) 53 (>60 ml/min/1.73 sqM); Sodium 131 mmol/L (137-145); Total Bilirubin 2.8 mg/dL (0.2-1.3); Total Protein 5.6 g/dL (6.3-8.2)
[2021-07-26] MEDS ORDERED: FAMOTIDINE 20 MG/2 ML VIAL IV STA (07:10)
[2021-07-26] MEDS ORDERED: diphenhydrAMINE 50 MG/ML 1 ML VIAL IVP STA (07:11)
[2021-07-26] MEDS: IPRATROPIUM-ALBUTEROL 3 ML NEB INHALATION SCH ×4 (07:29→20:09)
[2021-07-26 08:21] LABS: Glucose,Whole Blood 268 mg/dL (75-99)
--- NOTE | 2021-07-26 08:36 | CT ---
EXAMINATION TYPE: CT ChestAbdPelvis w con DATE OF EXAM: 07/26/2021 COMPARISON: 02/1121 HISTORY: Dyspnea, Abdominal pain CT DLP: 1099.7 mGycm CONTRAST: CT scan of the chest, abdomen and pelvis is performed without Oral Contrast and with IV Contrast, pat ient injected with 80 mL of Isovue 300. CT Chest: LUNGS: Bilateral pleural effusions noted. Scattered groundglass infiltrates are nonspecific. No focal consolidation. MEDIASTINUM: Thoracic aorta is of normal caliber. The heart is not enlarged. No evidence for media stinal mass or adenopathy. HILAR STRUCTURES: No evidence for mass. No hilar adenopathy is appreciated. OTHER: No significant abnormality. CONTRAST CT ABDOMEN AND PELVIS FINDINGS: LIVER/GB: Intrahepatic stent is recent demonstrated. The gallbladder is not clearly visualized. No sp abraham occupying hepatic lesion. Biliary tree is of normal caliber. PANCREAS: No inflammation. No distinct mass. SPLEEN: Splenomegaly measuring 14.6 cm craniocaudal dimension. ADRENALS: No nodule. No thickening. KIDNEYS/BLADDER: No hydronephrosis. No nephrolithiasis. No disctinct renal mass. BOWEL: Normal appendix. Normal bowel caliber. No inflammation. GENITAL ORGANS: No gross abnormality. LYMPH NODES: No greater than 1cm abdominal or pelvic lymph nodes are appreciated. AORTA: No significant abnormality. OSSEOUS STRUCTURES: No significant abnormality is seen. OTHER: Moderate ascites throughout all 4 quadrants. IMPRESSION: 1. No pleural effusions and scattered groundglass infiltrates. 2. Increasing four-quadrant ascites. 3. Splenomegaly.
[2021-07-26] MEDS ORDERED: MIDODRINE 5 MG TAB PO PRN (09:00)
[2021-07-26] MEDS ORDERED: ZINC SULFATE 220 MG CAP PO SCH (09:00)
[2021-07-26] MEDS ORDERED: SERTRALINE 25 MG TAB PO SCH (09:00)
[2021-07-26] MEDS ORDERED: FUROSEMIDE 20 MG TAB PO SCH (09:00)
[2021-07-26] MEDS: LACTULOSE 20 GM/30 ML CUP PO SCH (09:39)
[2021-07-26] MEDS: INSULIN PUMP MEAL BOLUS 1 UNIT MISC MISCELLANE SCH ×5 (09:39→20:18)
[2021-07-26] MEDS: VITAMIN A 10,000 UNIT (3000 MCG) CAPSULE PO SCH (09:40)
[2021-07-26] MEDS: RIFAXIMIN 550 MG TABLET PO SCH ×2 (09:40→20:10)
[2021-07-26] MEDS: PANTOPRAZOLE 40 MG TABLET PO SCH (09:40)
[2021-07-26] MEDS: FERROUS SULFATE 325 MG TAB PO SCH (09:40)
[2021-07-26] MEDS: MONTELUKAST 10 MG TAB PO SCH (09:40)
[2021-07-26] MEDS: EZETIMIBE 10 MG TAB PO SCH (09:40)
[2021-07-26] MEDS: POTASSIUM CHLORIDE ER 20 MEQ TAB.ER PO SCH (09:40)
[2021-07-26] MEDS: FUROSEMIDE 10 MG/ML 4 ML VIAL IV SCH ×2 (09:41→20:11)
--- NOTE | 2021-07-26 10:19 | US ---
EXAMINATION TYPE: US abdomen limited DATE OF EXAM: 07/26/2021 COMPARISON: CT 07/26/2021 CLINICAL HISTORY: Ascites. Moderate amount of fluid seen throughout the abdomen. Largest pocket RLQ. IMPRESSION: Limited exam. Moderate ascites.
[2021-07-26 10:23] LABS: Basophils # (A) 0 X 10*3/uL (0.00-0.10); Basophils % (A) 0 %; Eosinophils # (A) 0.01 X 10*3/uL (0.04-0.35); Eosinophils % (A) 0.6 %; HCT 25.4 % (37.2-46.3); HGB 8.5 g/dL (12.0-15.0); Lymphocytes # (A) 0.13 X 10*3/uL (0.90-5.00); Lymphocytes % (A) 8.3 %; MCH 32.4 pg (27.0-32.0); MCHC 33.5 g/dL (32.0-37.0); MCV 96.9 fL (80.0-97.0); Mean Platelet Volume 11.8 fL (9.5-12.2); Monocytes # (A) 0.04 X 10*3/uL (0.20-1.00); Monocytes % (A) 2.5 %; Neutrophils # (A) 1.38 X 10*3/uL (1.80-7.70); Platelet Count 41 X 10*3/uL (140-440); RBC 2.62 X 10*6/uL (4.10-5.20); RDW 15.9 % (11.5-14.5); WBC 1.57 X 10*3/uL (4.50-10.00)
[2021-07-26 12:12] LABS: Glucose,Whole Blood 403 mg/dL (75-99)
[2021-07-26] MEDS ORDERED: INSULIN ASPART (NovoLOG) 100 UNIT/ML VIAL SQ ONE ×2 (12:55→20:15)
--- NOTE | 2021-07-26 16:12 | P.CNPUL ---
History of Present Illness Consult date: 07/26/21 Reason for consult: dyspnea History of present illness: This is a very pleasant 66-year-old female patient was hospitalized for worsening shortness of breath. The patient is known case of liver failure/cirrhosis. 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 The patient has been under the care of the pathologist at the [facility] and she was having significant amount of fluid overload and back in January 2021, the patient underwent a TTIPS procedure to control the fluid balance and the patient has not required any paracentesis since then. The patient has a known case of liver cirrhosis. She has presented in the past our hospital because of a massive upper GI bleed and she is known to have portal hypertension and esophageal varices. The patient came into the hospital because of worsening shortness of breath and fluid overload. She reported increase in swelling in the lower extremities. She also had some abdominal distention worsening shortness of breath. A computed tomography scan of the chest abdomen and pelvis was done. CAT scan showed bilateral pleural effusion and some areas of scattered groundglass infiltrates. No focal consolidation. No evidence of any pulmonary embolism. The liver showed a intrahepatic stents and the gallbladder was not clearly visualized. There was evidence of ascites and there was also evidence of splenomegaly. The patient is currently on IV Lasix 40 mg every 12 hours and she is making adequate amount of urine output. Her white cell count is at 1.57 and the patient has pancytopenia with a hemoglobin of 8.5 and a platelet count of 41 due to hypersplenism and liver cirrhosis. Her sed rate is at 14. Correlation profile is within normal limits. BUN is at 14 with a creatinine of 1.09. Rest of the electrodes are normal. She is diabetic and she has an insulin pump. The blood sugar is elevated at 403 from today. Her LFTs are normal. Her total bilirubin is at 2.8. Total protein was 5.6 with albumin level of 2.6. Troponins are negative for now. COVID-19 testing was negative. Influenza she is awake and alert. No has signs of any hepatitic encephalopathy. No recent bleeding. No excessive drinking. No history of alcoholism. No other complaints otherwise for now. No history of any congestion heart failure. She has been listed at the [facility] for liver chest palpitation. There was an issue with a nodule in her right lung and for that reason a PET scan was ordered and meanwhile she was he activated from the transplant list. I do not see any nodules on the CAT scan of the chest. This could be probably of sick unit by the underlying pleural effusion. Review of Systems Constitutional: Reports daytime sleepiness, Reports poor appetite, Reports weakness Eyes: denies as per HPI, denies blurred vision, denies bulging eye, denies decr eased vision, denies diplopia, denies discharge, denies dry eye, denies irritation, denies itching, denies pain, denies photophobia, denies loss of peripheral vision, denies loss of vision, denies tunnel vision/blind spots Ears: deny: decreased hearing, ear discharge, earache, tinnitus Ears, nose, mouth and throat: Reports as per HPI Breasts: absent: as per HPI, change in shape, gynecomastia, masses, nipple discharge, pain, skin changes, swelling Cardiovascular: Reports decreased exercise tolerance, Reports dyspnea on exertion, Reports leg edema, Reports shortness of breath Respiratory: Reports dyspnea Gastrointestinal: Reports as per HPI (Nathalia history of GI bleed, none for now. For now the patient has ascites and liver cirrhosis.) Genitourinary: Reports as per HPI Menstruation: Reports as per HPI Musculoskeletal: Reports as per HPI Musculoskeletal: bilateral: ankle swelling, absent: ankle pain, ankle stiffness Integumentary: Reports as per HPI Neurological: Reports as per HPI, Reports weakness Psychiatric: Reports as per HPI Endocrine: Reports as per HPI Hematologic/Lymphatic: Reports as per HPI Allergic/Immunologic: Reports as per HPI Past Medical History Past Medical History: Coronary Artery Disease (CAD), Cancer, Chest Pain / Angina, Heart Failure, Diabetes Mellitus, Fibromyalgia, GERD/Reflux, Hyperlipidemia, Liver Disease, Renal Disease, Skin Disorder Additional Past Medical History / Comment(s): Non-ETOH cirrhosis, ascities, esophageal varices, pancytopenia, thrombycytopenia, anemia, IDDM with insulin pump, several nodules both lungs being monitored, urinary leakage at times and pt states she has diarrhea much of the time, psoriasis, cervical cancer, pt states 2 blockages in back of heart, awaiting liver transplant at [facility] in [place]. hx migraines, 2 seizures post back surgery, hiatal hernia, patient is undergoing work up for a possible TIPS at [facility] History of Any Multi-Drug Resistant Organisms: None Reported Past Surgical History: Back Surgery, Breast Surgery, Cholecystectomy, Heart Catheterization, Hysterectomy, Orthopedic Surgery, Tonsillectomy, Tubal Ligation Additional Past Surgical History / Comment(s): multi large volume Paracentesis, EGD with banded esophageal varices, colonoscopies, bilateral rotator cuff repairs, bilateral breast bx-benign, back surgery in 2014, TIPS Past Anesthesia/Blood Transfusion Reactions: Previous Problems w/ Anesthesia, Family History of Problems w/ Anesthesia, Motion Sickness Additional Past Anesthesia/Blood Transfusion Reaction / Comment(s): difficulty breathing when coming out of anesthesia; difficulty waking up. Hypotension with general anesthesia. blood transfusions without reaction. sister- slow coming out and PONV Past Psychological History: No Psychological Hx Reported Smoking Status: Former smoker Past Alcohol Use History: None Reported Past Drug Use History: None Reported - Past Family History Mother Family Medical History: Cancer Additional Family Medical History / Comment(s): skin cancer. Father Family Medical History: Coronary Artery Disease (CAD) Additional Family Medical History / Comment(s): cabg/pacemaker Brother(s) Family Medical History: Cancer Sister(s) Family Medical History: Cancer, Deep Vein Thrombosis (DVT) Additional Family Medical History / Comment(s): Breast CA. Medications and Allergies Home Medications Medication Instructions Recorded Confirmed Type Montelukast [Singulair] 10 mg PO DAILY 07/10/14 07/25/21 History Ezetimibe [Zetia] 10 mg PO DAILY 09/04/16 07/25/21 History INSULIN LISPRO (For Pump) [humaLOG 0.01 units SQ-PUMP CONTINUOUS 09/04/16 07/25/21 History (For Pump)] Sertraline [Zoloft] 25 mg PO DAILY 01/12/17 07/25/21 History EPINEPHrine [Epipen 2-Sanchez] 0.3 mg IM ONCE PRN 11/23/17 07/25/21 History Lactulose 20 gm PO DAILY 08/22/18 07/25/21 History Ergocalciferol (Vitamin D2) 50,000 unit PO JOE 09/17/18 07/25/21 History [Vitamin D2] Atorvastatin [Lipitor] 40 mg PO HS 02/03/20 07/25/21 History Vitamin A Acetate [Vitamin A] 20,000 unit SL DAILY 02/03/20 07/25/21 History Potassium Chloride ER [K-Dur 20] 20 meq PO DAILY 06/24/20 07/25/21 History Ferrous Sulfate [Iron] 325 mg PO DAILY 01/26/21 07/25/21 History Midodrine HCl [ProAmatine] 10 mg PO TID PRN 03/15/21 07/25/21 History Pantoprazole Sodium [Protonix] 40 mg PO DAILY 03/15/21 07/25/21 History Rifaximin [Xifaxan] 550 mg PO BID 03/15/21 07/25/21 History Zinc 50 mg PO DAILY 03/15/21 07/25/21 History Furosemide [Lasix] 20 mg PO BID 07/25/21 07/25/21 History Allergies Allergy/AdvReac Type Severity Reaction Status Date / Time doxycycline Allergy Rash/Hives Verified 07/25/21 20:50 iodine Allergy Rash/Hives Verified 07/25/21 20:50 Penicillins Allergy Rash/Hives Verified 07/25/21 20:50 shellfish derived Allergy Rash/Hives Verified 07/25/21 20:50 Sulfa (Sulfonamide Allergy Rash/Hives Verified 07/25/21 20:50 Antibiotics) venom-honey bee Allergy Anaphylaxis Verified 07/25/21 20:50 [bee venom (honey bee)] Physical Exam Vitals: Vital Signs Temp Pulse Pulse Resp BP BP Pulse Ox 07/26/21 15:00 97.8 F 111 H 20 125/55 98 07/26/21 12:30 99 18 07/26/21 12:21 99 07/26/21 12:20 95 18 07/26/21 08:23 98.7 F 112 H 21 128/55 99 07/26/21 08:00 18 07/26/21 07:40 105 H 07/26/21 07:29 102 H 07/26/21 05:00 90 18 140/56 96 07/26/21 03:35 94 07/26/21 03:25 94 07/26/21 01:00 87 18 142/64 97 07/25/21 23:00 98 18 149/68 95 07/25/21 21:39 89 07/25/21 21:29 73 07/25/21 20:07 18 07/25/21 20:06 84 25 H 153/86 97 07/25/21 18:35 98.5 F 81 18 150/66 93 L Intake and Output 07/26/21 07/26/21 07/26/21 06:59 14:59 22:59 Intake Total 720 Balance 720 Intake: Oral 720 Other: # Voids 3 # Bowel Movements 1 Gen. appearance the patient is calm comfortable, slightly a bit and her breathing special when she lays down flat Head exam was generally normal. There was no scleral icterus or corneal arcus. Mucous membranes were moist. Neck was supple and without jugular venous distension, thyromegaly, or carotid bruits. Carotids were easily palpable bilaterally. There was no adenopathy. Lungs sounds are diminished in lung bases and there is also dullness to percussion bilaterally consistent with underlying pleural effusion. Heart sounds are regular and there is accentuation of the second heart sound, probably related to underlying pulmonary hypertension. Faint murmur systolic ejection murmur grade 2/6 is also appreciated. Abdomen is distended and the patient has underlying ascites. His fluid wave and shifting dullness. There is also some splenomegaly. No direct tenderness. No rebound tensile guarding. Patient has a small umbilical hernia. Extremities reveal trace edema and there is no cyanosis or clubbing. Neurologically, awake and alert there is no focal neurological deficits. Examination of the skin revealed no evidence of significant rashes, suspicious appearing nevi or other concerning lesions. Results - Laboratory Findings CBC and BMP: 07/26/21 03:16 07/26/21 03:16 ABG WBC 1.57 X 10*3/uL (4.50-10.00) L 07/26/21 03:16 RBC 2.62 X 10*6/uL (4.10-5.20) L 07/26/21 03:16 Hgb 8.5 g/dL (12.0-15.0) L 07/26/21 03:16 Hct 25.4 % (37.2-46.3) L 07/26/21 03:16 MCV 96.9 fL (80.0-97.0) 07/26/21 03:16 MCH 32.4 pg (27.0-32.0) H 07/26/21 03:16 MCHC 33.5 g/dL (32.0-37.0) 07/26/21 03:16 RDW 15.9 % (11.5-14.5) H 07/26/21 03:16 Plt Count 41 X 10*3/uL (140-440) L 07/26/21 03:16 Plt Count Comment DECREASED A 07/26/21 03:16 MPV 11.8 fL (9.5-12.2) 07/26/21 03:16 Immature Gran % (Auto) 0.6 % 07/26/21 03:16 Absolute Nucleated RBC 0 X 10*3/uL (0.00-0.00) 07/26/21 03:16 Neutrophils % 88.0 % 07/26/21 03:16 Lymphocytes % 8.3 % 07/26/21 03:16 Monocytes % 2.5 % 07/26/21 03:16 Eosinophils % 0.6 % 07/26/21 03:16 Basophils % 0 % 07/26/21 03:16 Immature Gran # 0.01 X 10*3/uL (0.00-0.04) 07/26/21 03:16 Neutrophils # 1.38 X 10*3/uL (1.80-7.70) L 07/26/21 03:16 Lymphocytes # 0.13 X 10*3/uL (0.90-5.00) L 07/26/21 03:16 Monocytes # 0.04 X 10*3/uL (0.20-1.00) L 07/26/21 03:16 Eosinophils # 0.01 X 10*3/uL (0.04-0.35) L 07/26/21 03:16 Basophils # 0 X 10*3/uL (0.00-0.10) 07/26/21 03:16 NRBC/100 WBC Diff 0 /100 WBCS (0.0-0.0) 07/26/21 03:16 Immature Plt Fraction 7.3 % (1.1-6.1) H 07/26/21 03:16 RBC Morphology NORMAL 07/26/21 03:16 Poikilocytosis Slight 07/25/21 19:19 ESR 14 mm/hr (0-20) 07/26/21 03:16 PT 12.4 sec (9.0-12.0) H 07/25/21 19:19 INR 1.2 (<1.2) H 07/25/21 19:19 APTT 27.0 sec (22.0-30.0) 07/25/21 19:19 Sodium 131 mmol/L (137-145) L 07/26/21 03:16 Potassium 4.0 mmol/L (3.5-5.1) 07/26/21 03:16 Chloride 104 mmol/L (98-107) 07/26/21 03:16 Carbon Dioxide 19 mmol/L (22-30) L 07/26/21 03:16 Anion Gap 8 mmol/L 07/26/21 03:16 BUN 14 mg/dL (7-17) 07/26/21 03:16 Creatinine 1.09 mg/dL (0.52-1.04) H 07/26/21 03:16 Est GFR (CKD-EPI)AfAm 61 (>60 ml/min/1.73 sqM) 07/26/21 03:16 Est GFR (CKD-EPI)NonAf 53 (>60 ml/min/1.73 sqM) 07/26/21 03:16 Glucose 255 mg/dL (74-99) H 07/26/21 03:16 POC Glucose (mg/dL) 403 mg/dL (75-99) H 07/26/21 12:10 POC Glu Director Sales ID Mara Flores 07/26/21 12:10 Plasma Lactic Acid Juan 1.4 mmol/L (0.7-2.0) 07/25/21 21:00 Calcium 8.4 mg/dL (8.4-10.2) 07/26/21 03:16 Magnesium 2.1 mg/dL (1.6-2.3) 07/25/21 19:19 Total Bilirubin 2.8 mg/dL (0.2-1.3) H 07/26/21 03:16 AST 49 U/L (14-36) H 07/26/21 03:16 ALT 22 U/L (4-34) 07/26/21 03:16 Alkaline Phosphatase 106 U/L (38-126) 07/26/21 03:16 Troponin I <0.012 ng/mL (0.000-0.034) 07/25/21 19:19 NT-Pro-B Natriuret Pep 1510 pg/mL 07/25/21 19:19 Total Protein 5.6 g/dL (6.3-8.2) L 07/26/21 03:16 Albumin 2.6 g/dL (3.5-5.0) L 07/26/21 03:16 Globulin 3.0 g/dL 07/26/21 03:16 Albumin/Globulin Ratio 0.9 07/26/21 03:16 Coronavirus (PCR) Not Detected (Not Detectd) 07/25/21 21:00 Influenza Type A RNA Not Detected (Not Detectd) 07/25/21 21:00 Influenza Type B (PCR) Not Detected (Not Detectd) 07/25/21 21:00 PT/INR, D-dimer PT 12.4 sec (9.0-12.0) H 07/25/21 19:19 INR 1.2 (<1.2) H 07/25/21 19:19 Abnormal lab findings: Abnormal Labs 07/25/21 07/25/21 07/25/21 19:19 19:19 19:19 WBC 2.2 L RBC 3.02 L Hgb 10.1 L Hct 29.1 L MCH RDW Plt Count 53 L Plt Count Comment Neutrophils # Lymphocytes # 0.3 L Monocytes # Eosinophils # Immature Plt Fraction PT 12.4 H INR 1.2 H Sodium 136 L Carbon Dioxide Creatinine 1.08 H Glucose POC Glucose (mg/dL) Total Bilirubin 3.0 H AST 50 H Total Protein 6.0 L Albumin 2.9 L 07/26/21 07/26/21 07/26/21 03:16 03:16 08:20 WBC 1.57 L RBC 2.62 L Hgb 8.5 L Hct 25.4 L MCH 32.4 H RDW 15.9 H Plt Count 41 L Plt Count Comment DECREASED A Neutrophils # 1.38 L Lymphocytes # 0.13 L Monocytes # 0.04 L Eosinophils # 0.01 L Immature Plt Fraction 7.3 H PT INR Sodium 131 L Carbon Dioxide 19 L Creatinine 1.09 H Glucose 255 H POC Glucose (mg/dL) 268 H Total Bilirubin 2.8 H AST 49 H Total Protein 5.6 L Albumin 2.6 L 07/26/21 12:10 WBC RBC Hgb Hct MCH RDW Plt Count Plt Count Comment Neutrophils # Lymphocytes # Monocytes # Eosinophils # Immature Plt Fraction PT INR Sodium Carbon Dioxide Creatinine Glucose POC Glucose (mg/dL) 403 H Total Bilirubin AST Total Protein Albumin - Diagnostic Findings Chest x-ray: image reviewed Assessment and Plan Plan: 1 shortness of breath likely secondary to large bilateral pleural effusion causing atelectatic changes in lung bases bilaterally. Patient is currently on oxygen at 15 L per minute nasal cannula. Usually she is not oxygen dependent at home. She is currently on diuretics. 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 3 previous history of TIPS regarding liver cirrhosis and recurrent ascites 4 pancytopenia secondary to liver failure/hypersplenism 5 portal hypertension. History of GI bleed, inactive in stable for now 6 questionable lung mass for which a PET scan was ordered for this patient and the patient was deactivated from the transplantation list. 7 history of psoriatic arthritis 8 history of diabetes mellitus currently on insulin pump. Blood sugar seems to be under poor control monitor the blood sugar from today is quite elevated. 9 fibromyalgia 10 coronary artery disease without previous history of any underlying cardiomyopathy with CHF. 11 hyperbilirubinemia secondary to liver cirrhosis Plan Continue diuretics for now. Discussed with the patient the possibility of thoracentesis. This obviously will help her with her breathing. The procedure was explained. Alternatively, the patient can undergo a paracentesis and evacuate the ascitic fluid which will also give her symptomatic relief. Ultimately, when he to do a combination of treatment. My suggestion is to proceed with a paracentesis first as long as the patient is very regular with the procedure. We'll consult interventional radiology for that. We'll continue diuretics. If needed, we'll do a thoracentesis. If needed, we'll give her oxygen concentrator and portable tank to maintain a saturation above 90%. The patient is quite stable for now. COVID-19 testing is negative. No clear indication of an underlying infection. Obtaining a based on echocardiogram and also useful to rule out CHF/severe pulm onary hypertension in association with portal hypertension.. I think is also reasonable to evaluate this patient for ascitic fluid cytology and check a alpha-fetoprotein level to rule out the possibility of hepatocellular carcinoma in association with liver cirrhosis. We'll work with the GI team and the [facility] team regarding her candidacy for liver transplantation. Ultimately, the patient is seeking outpatient CAT scan and if negative the patient should be able to be reinstated on the transplantation list. We'll continue to follow.
[2021-07-26 17:03] LABS: Glucose,Whole Blood 430 mg/dL (75-99)
--- NOTE | 2021-07-26 19:54 | P.HPIM ---
History of Present Illness H&P Date: 07/26/21 Chief Complaint: Shortness of breath 58-year-old female with significant past medical history of liver cirrhosis, diabetes mellitus, coronary artery disease, hypertension, hyperlipidemia, heart failure, ascites, esophageal varices, pancytopenia, thrombocytopenia, anemia, pulmonary nodules, cervical cancer, history of breast surgery, history of cholecystectomy, cardiac catheterizations, hysterectomy, orthopedic surgeries, multiple large volume paracentesis, EGD with banding of esophageal varices, TIPS procedure surgery performed at [facility] in January 2021, nicotine dependence, and possible obstructive pulmonary disorder is admitted to the hospital for progressive shortness of breath with associated anasarca, and ascites. Consultation was placed by emergency department with pulmonary critical care for management of COPD. 07/26/2021 She is seen and examined emergency department. She is resting comfortably on 2 L of oxygen. She endorses fever, chills, shortness of breath, abdominal discomfort and generalized malaise for duration of 1 week. Patient had extensive diagnostic workup in the emergency department revealing pancytopenia, hyponatremia with a sodium level 131, elevated glucose of 255, elevated total bilirubin of 2.8, chest x-ray mild heart failure noted from previous x-ray. Additional diagnostics were obtained in the emergency department CT chest abdomen and pelvis with contrast, revealing bilateral pleural effusions and scattered groundglass infiltrates, ascites noted in all 4 quadrants, no splenomegaly. Ultrasound of the abdomen was obtained for diagnostic and interventional paracentesis, moderate amount of fluid thrill the abdomen largest amount of fluid in the right lower quadrant. Consultation with pulmonary critical care has been initiated by the emergency department for management of COPD, awaiting recommendations from pulmonary critical care. Review of Systems Constitutional: Reports chills, Reports fatigue, Reports fever, Reports poor appetite, Reports weakness, Reports weight gain Ears, nose, mouth and throat: Reports sore throat Cardiovascular: Reports decreased exercise tolerance, Reports dyspnea on exertion, Reports edema, Reports shortness of breath Respiratory: Reports congestion, Reports dyspnea, Reports home oxygen, Reports respiratory infections Gastrointestinal: Reports abdominal pain, Reports loss of appetite, Reports nausea Genitourinary: Reports incomplete emptying Musculoskeletal: Reports gait dysfunction, Reports muscle weakness Integumentary: Reports color changes Psychiatric: Reports anxiety Endocrine: Reports high blood sugars, Reports weight change Hematologic/Lymphatic: Reports easy bruising Past Medical History Past Medical History: Coronary Artery Disease (CAD), Cancer, Chest Pain / Angina, Heart Failure, Diabetes Mellitus, Fibromyalgia, GERD/Reflux, Hyperlipidemia, Liver Disease, Renal Disease, Skin Disorder Additional Past Medical History / Comment(s): Non-ETOH cirrhosis, ascities, esophageal varices, pancytopenia, thrombycytopenia, anemia, IDDM with insulin pump, several nodules both lungs being monitored, urinary leakage at times and pt states she has diarrhea much of the time, psoriasis, cervical cancer, pt states 2 blockages in back of heart, awaiting liver transplant at [facility] in [place]. hx migraines, 2 seizures post back surgery, hiatal hernia, patient is undergoing work up for a possible TIPS at [facility] History of Any Multi-Drug Resistant Organisms: None Reported Past Surgical History: Back Surgery, Breast Surgery, Cholecystectomy, Heart Catheterization, Hysterectomy, Orthopedic Surgery, Tonsillectomy, Tubal Ligation Additional Past Surgical History / Comment(s): multi large volume Paracentesis, EGD with banded esophageal varices, colonoscopies, bilateral rotator cuff repairs, bilateral breast bx-benign, back surgery in 2014, TIPS Past Anesthesia/Blood Transfusion Reactions: Previous Problems w/ Anesthesia, Family History of Problems w/ Anesthesia, Motion Sickness Additional Past Anesthesia/Blood Transfusion Reaction / Comment(s): difficulty breathing when coming out of anesthesia; difficulty waking up. Hypotension with general anesthesia. blood transfusions without reaction. sister- slow coming out and PONV Past Psychological History: No Psychological Hx Reported Smoking Status: Former smoker Past Alcohol Use History: None Reported Past Drug Use History: None Reported - Past Family History Mother Family Medical History: Cancer Additional Family Medical History / Comment(s): skin cancer. Father Family Medical History: Coronary Artery Disease (CAD) Additional Family Medical History / Comment(s): cabg/pacemaker Brother(s) Family Medical History: Cancer Sister(s) Family Medical History: Cancer, Deep Vein Thrombosis (DVT) Additional Family Medical History / Comment(s): Breast CA. Medications and Allergies Home Medications and Allergies Comment(s): Medications and ALLERGIES reviewed Home Medications Medication Instructions Recorded Confirmed Type Montelukast [Singulair] 10 mg PO DAILY 07/10/14 07/25/21 History Ezetimibe [Zetia] 10 mg PO DAILY 09/04/16 07/25/21 History INSULIN LISPRO (For Pump) [humaLOG 0.01 units SQ-PUMP CONTINUOUS 09/04/16 07/25/21 History (For Pump)] Sertraline [Zoloft] 25 mg PO DAILY 01/12/17 07/25/21 History EPINEPHrine [Epipen 2-Sanchez] 0.3 mg IM ONCE PRN 11/23/17 07/25/21 History Lactulose 20 gm PO DAILY 08/22/18 07/25/21 History Ergocalciferol (Vitamin D2) 50,000 unit PO JOE 09/17/18 07/25/21 History [Vitamin D2] Atorvastatin [Lipitor] 40 mg PO HS 02/03/20 07/25/21 History Vitamin A Acetate [Vitamin A] 20,000 unit SL DAILY 02/03/20 07/25/21 History Potassium Chloride ER [K-Dur 20] 20 meq PO DAILY 06/24/20 07/25/21 History Ferrous Sulfate [Iron] 325 mg PO DAILY 01/26/21 07/25/21 History Midodrine HCl [ProAmatine] 10 mg PO TID PRN 03/15/21 07/25/21 History Pantoprazole Sodium [Protonix] 40 mg PO DAILY 03/15/21 07/25/21 History Rifaximin [Xifaxan] 550 mg PO BID 03/15/21 07/25/21 History Zinc 50 mg PO DAILY 03/15/21 07/25/21 History Furosemide [Lasix] 20 mg PO BID 07/25/21 07/25/21 History Allergies Allergy/AdvReac Type Severity Reaction Status Date / Time doxycycline Allergy Rash/Hives Verified 07/25/21 20:50 iodine Allergy Rash/Hives Verified 07/25/21 20:50 Penicillins Allergy Rash/Hives Verified 07/25/21 20:50 shellfish derived Allergy Rash/Hives Verified 07/25/21 20:50 Sulfa (Sulfonamide Allergy Rash/Hives Verified 07/25/21 20:50 Antibiotics) venom-honey bee Allergy Anaphylaxis Verified 07/25/21 20:50 [bee venom (honey bee)] Physical Exam Vitals: Vital Signs Temp Pulse Pulse Resp BP BP Pulse Ox 07/26/21 15:00 97.8 F 111 H 20 125/55 98 07/26/21 14:00 22 07/26/21 12:30 99 18 07/26/21 12:21 99 09/28/21 12:20 95 18 07/26/21 08:23 98.7 F 112 H 21 128/55 99 07/26/21 08:00 18 07/26/21 07:40 105 H 07/26/21 07:29 102 H 07/26/21 05:00 90 18 140/56 96 07/26/21 03:35 94 07/26/21 03:25 94 07/26/21 01:00 87 18 142/64 97 07/25/21 23:00 98 18 149/68 95 07/25/21 21:39 89 07/25/21 21:29 73 07/25/21 20:07 18 07/25/21 20:06 84 25 H 153/86 97 Intake and Output 07/26/21 07/26/21 07/26/21 06:59 14:59 22:59 Intake Total 720 Balance 720 Intake: Oral 720 Other: # Voids 3 # Bowel Movements 1 - Constitutional General appearance: cooperative, mild distress - EENT Eyes: EOMI, PERRLA ENT: normal oropharynx Ears: bilateral: normal - Neck Neck: normal ROM Carotids: bilateral: upstroke normal Thyroid: bilateral: normal size - Respiratory Respiratory: bilateral: diminished (Anterior and posterior lung win) - Cardiovascular Normal sinus rhythm Heart rate: 72 Rhythm: regular Heart sounds: normal: S1, S2 leg Peripheral Edema: bilateral: 2+ ankle Peripheral Edema: bilateral: 2+ foot Peripheral Edema: bilateral: 2+ radial pulse Peripheral Pulses: bilateral: Normal - Gastrointestinal General gastrointestinal: decreased bowel sounds, organomegaly, splenomegaly, tenderness Localized gastrointestinal: tender: diffuse - Integumentary Integumentary: decreased turgor, pale - Neurologic Neurologic: CNII-XII intact - Musculoskeletal Musculoskeletal: generalized weakness - Psychiatric Psychiatric: A&O x's 3 Results CBC & Chem 7: 07/26/21 03:16 07/26/21 03:16 Labs: Abnormal Lab Results - Last 24 Hours (Table) 07/25/21 07/25/21 07/25/21 Range/Units 19:19 19:19 19:19 WBC 2.2 L (3.8-10.6) k/uL RBC 3.02 L (3.80-5.40) m/uL Hgb 10.1 L (11.4-16.0) gm/dL Hct 29.1 L (34.0-46.0) % MCH (27.0-32.0) pg RDW (11.5-14.5) % Plt Count 53 L (150-450) k/uL Plt Count Comment Neutrophils # (1.80-7.70) X 10*3/uL Lymphocytes # 0.3 L (1.0-4.8) k/uL Monocytes # (0.20-1.00) X 10*3/uL Eosinophils # (0.04-0.35) X 10*3/uL Immature Plt Fraction (1.1-6.1) % PT 12.4 H (9.0-12.0) sec INR 1.2 H (<1.2) Sodium 136 L (137-145) mmol/L Carbon Dioxide (22-30) mmol/L Creatinine 1.08 H (0.52-1.04) mg/dL Glucose (74-99) mg/dL POC Glucose (mg/dL) (75-99) mg/dL Total Bilirubin 3.0 H (0.2-1.3) mg/dL AST 50 H (14-36) U/L Total Protein 6.0 L (6.3-8.2) g/dL Albumin 2.9 L (3.5-5.0) g/dL 07/26/21 07/26/21 07/26/21 Range/Units 03:16 03:16 08:20 WBC 1.57 L (3.8-10.6) k/uL RBC 2.62 L (3.80-5.40) m/uL Hgb 8.5 L (11.4-16.0) gm/dL Hct 25.4 L (34.0-46.0) % MCH 32.4 H (27.0-32.0) pg RDW 15.9 H (11.5-14.5) % Plt Count 41 L (150-450) k/uL Plt Count Comment DECREASED A Neutrophils # 1.38 L (1.80-7.70) X 10*3/uL Lymphocytes # 0.13 L (1.0-4.8) k/uL Monocytes # 0.04 L (0.20-1.00) X 10*3/uL Eosinophils # 0.01 L (0.04-0.35) X 10*3/uL Immature Plt Fraction 7.3 H (1.1-6.1) % PT (9.0-12.0) sec INR (<1.2) Sodium 131 L (137-145) mmol/L Carbon Dioxide 19 L (22-30) mmol/L Creatinine 1.09 H (0.52-1.04) mg/dL Glucose 255 H (74-99) mg/dL POC Glucose (mg/dL) 268 H (75-99) mg/dL Total Bilirubin 2.8 H (0.2-1.3) mg/dL AST 49 H (14-36) U/L Total Protein 5.6 L (6.3-8.2) g/dL Albumin 2.6 L (3.5-5.0) g/dL 07/26/21 07/26/21 Range/Units 12:10 17:02 WBC (3.8-10.6) k/uL RBC (3.80-5.40) m/uL Hgb (11.4-16.0) gm/dL Hct (34.0-46.0) % MCH (27.0-32.0) pg RDW (11.5-14.5) % Plt Count (150-450) k/uL Plt Count Comment Neutrophils # (1.80-7.70) X 10*3/uL Lymphocytes # (1.0-4.8) k/uL Monocytes # (0.20-1.00) X 10*3/uL Eosinophils # (0.04-0.35) X 10*3/uL Immature Plt Fraction (1.1-6.1) % PT (9.0-12.0) sec INR (<1.2) Sodium (137-145) mmol/L Carbon Dioxide (22-30) mmol/L Creatinine (0.52-1.04) mg/dL Glucose (74-99) mg/dL POC Glucose (mg/dL) 403 H 430 H (75-99) mg/dL Total Bilirubin (0.2-1.3) mg/dL AST (14-36) U/L Total Protein (6.3-8.2) g/dL Albumin (3.5-5.0) g/dL Chest x-ray: report reviewed CT scan - abdomen: report reviewed CT scan - chest: report reviewed CT scan - pelvis: report reviewed US - abdomen: report reviewed Thrombosis Risk Factor Assmnt - Choose All That Apply Each Factor Represents 1 point: Abnormal pulmonary function (COPD), Obesity (BMI >25), Swollen legs (current) Other Risk Factors: Yes Each Risk Factor Represents 2 Points: Age 61-74 years Thrombosis Risk Factor Assessment Total Risk Factor Score: 5 Thrombosis Risk Factor Assessment Level: High Risk Assessment and Plan Assessment: Bilateral pleural effusions Pancytopenia Scattered ground infiltrates Liver cirrhosis with large ascites Pancytopenia secondary to liver failure and splenomegaly Hyperbilirubinemia Coronary artery disease, awaiting CABG at [facility] History of cervical cancer with hysterectomy Diabetes mellitus insulin-dependent Fibromyalgia GERD/reflux Hyperlipidemia History of lung nodules History of TIPS performed at [facility] January 2021 History of cholecystectomy History of cardiac catheterizations History of orthopedic surgeries History of multiple large volume paracentesis History of EGD with banding of esophageal varices Hypertension Awaiting liver transplant [facility] Full code Plan: Bilateral pleural effusions, initiate Lasix 40 mg IV push twice a day, con sultation with pulmonary critical care for recommendations Scattered ground infiltrates, continue broad-spectrum antibiotics Ascites obtain ultrasound for interventional paracentesis Possible COPD continue breathing treatments and corticosteroids Continue home medications Continue to monitor vital signs and diagnostic testing Further recommendations to come based on patient's clinical condition Time with Patient: Greater than 30
[2021-07-26 20:03] LABS: Glucose,Whole Blood 366 mg/dL (75-99)
[2021-07-26] MEDS: ATORVASTATIN 40 MG TAB PO SCH (20:10)
[2021-07-26] MEDS: ZINC SULFATE 220 MG CAP PO SCH (20:19)
[2021-07-26] MEDS: SERTRALINE 25 MG TAB PO SCH (20:19)
[2021-07-26 21:04] LABS: Glucose,Whole Blood 328 mg/dL (75-99)
[2021-07-26 21:31] LABS: African American GFR (CKD) 40 (>60 ml/min/1.73 sqM); Anion Gap 12 mmol/L; Blood Urea Nitrogen 20 mg/dL (7-17); Calcium 8.6 mg/dL (8.4-10.2); Carbon Dioxide 18 mmol/L (22-30); Chloride 101 mmol/L (98-107); Glucose 295 mg/dL (74-99); Non-African American GFR(CKD) 35 (>60 ml/min/1.73 sqM); Potassium 3.8 mmol/L (3.5-5.1); Sodium 131 mmol/L (137-145)
[2021-07-26] MEDS ORDERED: LEVOFLOXACIN 750MG-D5W PMX 750 MG in DEXTROSE/WATER 1 150ML.BAG IVPB SCH (23:00)
[2021-07-27 02:52] LABS: Glucose,Whole Blood 208 mg/dL (75-99)
[2021-07-27 05:46] LABS: Anisocytosis Slight; Basophils % (A) 0 %; Eosinophils % (A) 0 %; HCT 25.8 % (34.0-46.0); HGB 8.9 gm/dL (11.4-16.0); Hyperchromasia Slight; Lymphocytes # (A) 0.4 k/uL (1.0-4.8); Lymphocytes % (A) 4 %; MCH 33.5 pg (25.0-35.0); MCHC 34.6 g/dL (31.0-37.0); MCV 96.7 fL (80.0-100.0); Macrocytosis Slight; Mean Platelet Volume 9.9; Monocytes # (A) 0.3 k/uL (0-1.0); Monocytes % (A) 3 %; Neutrophils # (A) 8.5 k/uL (1.3-7.7); Neutrophils % (A) 92 %; Poikilocytosis Slight; RBC 2.67 m/uL (3.80-5.40); RDW 16.3 % (11.5-15.5); WBC 9.3 k/uL (3.8-10.6)
[2021-07-27 06:04] LABS: ALT 22 U/L (4-34); AST 44 U/L (14-36); African American GFR (CKD) 39 (>60 ml/min/1.73 sqM); Albumin 2.7 g/dL (3.5-5.0); Albumin/Globulin Ratio 0.9; Alkaline Phosphatase 97 U/L (38-126); Anion Gap 8 mmol/L; Blood Urea Nitrogen 25 mg/dL (7-17); Calcium 8.6 mg/dL (8.4-10.2); Carbon Dioxide 20 mmol/L (22-30); Chloride 101 mmol/L (98-107); Globulin 2.9 g/dL; Glucose 168 mg/dL (74-99); Magnesium 2.1 mg/dL (1.6-2.3); Non-African American GFR(CKD) 34 (>60 ml/min/1.73 sqM); Potassium 4.5 mmol/L (3.5-5.1); Sodium 129 mmol/L (137-145); Total Bilirubin 1.4 mg/dL (0.2-1.3); Total Protein 5.6 g/dL (6.3-8.2)
[2021-07-27 06:10] LABS: Platelet Count 51 k/uL (150-450)
[2021-07-27 07:43] LABS: Glucose,Whole Blood 174 mg/dL (75-99)
[2021-07-27] MEDS ORDERED: SODIUM CHLORIDE TAB 1 GM TAB PO STA (08:26)
[2021-07-27] MEDS: IPRATROPIUM-ALBUTEROL 3 ML NEB INHALATION SCH ×4 (08:41→21:05)
[2021-07-27] MEDS: INSULIN PUMP MEAL BOLUS 1 UNIT MISC MISCELLANE SCH ×4 (09:20→20:46)
[2021-07-27] MEDS: POTASSIUM CHLORIDE ER 20 MEQ TAB.ER PO SCH (12:44)
[2021-07-27] MEDS: MONTELUKAST 10 MG TAB PO SCH (12:44)
[2021-07-27] MEDS: FERROUS SULFATE 325 MG TAB PO SCH (12:44)
[2021-07-27] MEDS: RIFAXIMIN 550 MG TABLET PO SCH ×2 (12:45→20:49)
[2021-07-27] MEDS: PANTOPRAZOLE 40 MG TABLET PO SCH (12:45)
[2021-07-27] MEDS: VITAMIN A 10,000 UNIT (3000 MCG) CAPSULE PO SCH (12:45)
[2021-07-27] MEDS: LEVOFLOXACIN 750 MG TAB PO SCH (12:46)
[2021-07-27] MEDS: EZETIMIBE 10 MG TAB PO SCH (12:46)
[2021-07-27] MEDS: LACTULOSE 20 GM/30 ML CUP PO SCH (12:47)
[2021-07-27] MEDS: FUROSEMIDE 10 MG/ML 4 ML VIAL IV SCH ×2 (12:47→20:43)
[2021-07-27 12:55] LABS: Glucose,Whole Blood 149 mg/dL (75-99)
--- NOTE | 2021-07-27 13:03 | P.PN ---
Subjective Progress Note Date: 07/27/21 This is a very pleasant 66-year-old female patient was hospitalized for worsening shortness of breath. The patient is known case of liver failure/cirrhosis. 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 The patient has been under the care of the pathologist at the [facility] and she was having significant amount of fluid overload and back in January 2021, the patient underwent a TTIPS procedure to control the fluid balance and the patient has not required any paracentesis since then. The patient has a known case of liver cirrhosis. She has presented in the past our hospital because of a massive upper GI bleed and she is known to have portal hypertension and esophageal varices. The patient came into the hospital because of worsening shortness of breath and fluid overload. She reported increase in swelling in the lower extremities. She also had some abdominal distention worsening shortness of breath. A computed tomography scan of the chest abdomen and pelvis was done. CAT scan showed bilateral pleural effusion and some areas of scattered groundglass infiltrates. No focal consolidation. No evidence of any pulmonary embolism. The liver showed a intrahepatic stents and the gallbladder was not clearly visualized. There was evidence of ascites and there was also evidence of splenomegaly. The patient is currently on IV Lasix 40 mg every 12 hours and she is making adequate amount of urine output. Her white cell count is at 1.57 and the patient has pancytopenia with a hemoglobin of 8.5 and a platelet count of 41 due to hypersplenism and liver cirrhosis. Her sed rate is at 14. Correlation profile is within normal limits. BUN is at 14 with a creatinine of 1.09. Rest of the electrodes are normal. She is diabetic and she has an insulin pump. The blood sugar is elevated at 403 from today. Her LFTs are normal. Her total bilirubin is at 2.8. Total protein was 5.6 with albumin level of 2.6. Troponins are negative for now. COVID-19 testing was negative. Influenza she is awake and alert. No has signs of any hepatitic encephalopathy. No recent bleeding. No excessive drinking. No history of alcoholism. No other complaints otherwise for now. No history of any congestion heart failure. She has been listed at the [facility] for liver chest palpitation. There was an issue with a nodule in her right lung and for that reason a PET scan was ordered and meanwhile she was he activated from the transplant list. I do not see any nodules on the CAT scan of the chest. This could be probably of sick unit by the underlying pleural effusion. The patient is seen today 07/27/2021 in follow-up on the regular medical floor. She did undergo paracentesis by interventional radiology this morning. She is maintaining good O2 saturations up to 100% on 3 L/m per nasal cannula. Blood cultures reveal no growth. White count 9.3. Hemoglobin 8.9. Platelet count 51,000. Sodium 129. Potassium 4.5. Creatinine 1.55. AST 44, ALT 22. She is continued on IV diuretics. Objective - Vital Signs Vital signs: Vital Signs Temp 98.3 F 07/27/21 07:00 Pulse 100 07/27/21 11:54 Resp 16 07/27/21 11:25 BP 123/54 07/27/21 11:25 Pulse Ox 100 07/27/21 11:25 Intake & Output 07/26/21 07/27/21 07/27/21 18:59 06:59 18:59 Intake Total 900 Balance 900 Intake: Oral 900 Other: Voiding Method Toilet # Voids 3 1 # Bowel Movements 1 - Exam Gen. appearance the patient is calm comfortable, in no acute distress Head exam was generally normal. There was no scleral icterus or corneal arcus. Mucous membranes were moist. Neck was supple and without jugular venous distension, thyromegaly, or carotid bruits. Carotids were easily palpable bilaterally. There was no adenopathy. Lungs sounds are diminished in lung bases and there is also dullness to percussi on bilaterally consistent with underlying pleural effusion. Heart sounds are regular and there is accentuation of the second heart sound, probably related to underlying pulmonary hypertension. Faint murmur systolic ejection murmur grade 2/6 is also appreciated. Abdomen is distended and the patient has underlying ascites. His fluid wave and shifting dullness. There is also some splenomegaly. No direct tenderness. No rebound tensile guarding. Patient has a small umbilical hernia. Extremities reveal trace edema and there is no cyanosis or clubbing. Neurologically, awake and alert there is no focal neurological deficits. Examination of the skin revealed no evidence of significant rashes, suspicious appearing nevi or other concerning lesions. - Labs CBC & Chem 7: 07/27/21 05:22 07/27/21 05:22 Labs: Abnormal Lab Results - Last 24 Hours (Table) 07/25/21 07/26/21 07/26/21 Range/Units 19:19 17:02 19:59 RBC (3.80-5.40) m/uL Hgb (11.4-16.0) gm/dL Hct (34.0-46.0) % RDW (11.5-15.5) % Plt Count (150-450) k/uL Neutrophils # (1.3-7.7) k/uL Lymphocytes # (1.0-4.8) k/uL Sodium (137-145) mmol/L Carbon Dioxide (22-30) mmol/L BUN (7-17) mg/dL Creatinine (0.52-1.04) mg/dL Glucose (74-99) mg/dL POC Glucose (mg/dL) 430 H 366 H (75-99) mg/dL Total Bilirubin (0.2-1.3) mg/dL AST (14-36) U/L Total Protein (6.3-8.2) g/dL Albumin (3.5-5.0) g/dL Procalcitonin 0.19 H (0.02-0.09) ng/mL 07/26/21 07/26/21 07/27/21 Range/Units 20:44 21:03 02:51 RBC (3.80-5.40) m/uL Hgb (11.4-16.0) gm/dL Hct (34.0-46.0) % RDW (11.5-15.5) % Plt Count (150-450) k/uL Neutrophils # (1.3-7.7) k/uL Lymphocytes # (1.0-4.8) k/uL Sodium 131 L (137-145) mmol/L Carbon Dioxide 18 L (22-30) mmol/L BUN 20 H (7-17) mg/dL Creatinine 1.52 H (0.52-1.04) mg/dL Glucose 295 H (74-99) mg/dL POC Glucose (mg/dL) 328 H 208 H (75-99) mg/dL Total Bilirubin (0.2-1.3) mg/dL AST (14-36) U/L Total Protein (6.3-8.2) g/dL Albumin (3.5-5.0) g/dL Procalcitonin (0.02-0.09) ng/mL 07/27/21 07/27/21 07/27/21 Range/Units 05:22 05:22 07:41 RBC 2.67 L (3.80-5.40) m/uL Hgb 8.9 L (11.4-16.0) gm/dL Hct 25.8 L (34.0-46.0) % RDW 16.3 H (11.5-15.5) % Plt Count 51 L (150-450) k/uL Neutrophils # 8.5 H (1.3-7.7) k/uL Lymphocytes # 0.4 L (1.0-4.8) k/uL Sodium 129 L (137-145) mmol/L Carbon Dioxide 20 L (22-30) mmol/L BUN 25 H (7-17) mg/dL Creatinine 1.55 H (0.52-1.04) mg/dL Glucose 168 H (74-99) mg/dL POC Glucose (mg/dL) 174 H (75-99) mg/dL Total Bilirubin 1.4 H (0.2-1.3) mg/dL AST 44 H (14-36) U/L Total Protein 5.6 L (6.3-8.2) g/dL Albumin 2.7 L (3.5-5.0) g/dL Procalcitonin (0.02-0.09) ng/mL Microbiology - Last 24 Hours (Table) 07/25/21 22:14 Blood Culture - Preliminary Blood No Growth after 24 hours 07/25/21 22:32 Blood Culture - Preliminary Blood No Growth after 24 hours Assessment and Plan Assessment: 1 shortness of breath likely secondary to large bilateral pleural effusion ca using atelectatic changes in lung bases bilaterally. Patient is currently improved on oxygen at 3 L per minute nasal cannula. Usually she is not oxygen dependent at home. She is currently on diuretics. 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 2 liver cirrhosis with large ascites. 3 previous history of TIPS regarding liver cirrhosis and recurrent ascites 4 pancytopenia secondary to liver failure/hypersplenism 5 portal hypertension. History of GI bleed, inactive in stable for now 6 questionable lung mass for which a PET scan was ordered for this patient and the patient was deactivated from the transplantation list. 7 history of psoriatic arthritis 8 history of diabetes mellitus currently on insulin pump. Blood sugar seems to be under poor control monitor the blood sugar from today is quite elevated. 9 fibromyalgia 10 coronary artery disease without previous history of any underlying cardiomyopathy with CHF. 11 hyperbilirubinemia secondary to liver cirrhosis Plan: The patient was seen and evaluated by Dr. Louie Status post paracentesis Follow-up chest x-ray in a.m. Down to 3 L nasal cannula We will continue to follow I, the cosigning physician, performed a history & physical examination of the patient. Lungs sounds diminished in the posterior basses. Maintaining good O2 saturations in the 90s on 3L min per nasal canula. I discussed the assessment and plan of care with my nurse practitioner, Bella Venegas. I attest to the above note as dictated by her.
--- NOTE | 2021-07-27 14:04 | US ---
EXAMINATION TYPE: US paracentesis abd w/image DATE OF EXAM: 07/27/2021 COMPARISON: NONE HISTORY: Ascites. PROCEDURE: Maximal barrier technique was utilized. The skin overlying a suitable pocket of fluid was localized with ultrasound and the overlying skin was prepped and draped. Ultrasound was utilized with sterile technique. Lidocaine was used for local anesthesia and a skin jose made with a scalpel. Catheter was advanced under direct ultrasound guidance into a suitable pocket of fluid and approximately 3.5 liter s of serous fluid were removed. Catheter was withdrawn and hemostasis achieved. There is no immedia te complication; the patient is discharged in stable condition. IMPRESSION: STATUS POST ULTRASOUND GUIDED PARACENTESIS FOR PALLIATION OF ASCITES. THIS PROCEDURE WA S PERFORMED BY THE UNDERSIGNED.
[2021-07-27 15:52] LABS: Appearance,BF Hazy; Color,BF Yellow; Nucleated Cells, Body Fluid 98 /uL; RBC, Body Fluid 743 /uL
[2021-07-27 15:53] LABS: Mononuclear WBC,Body Fluid 99 %; Polynuclear WBC,Body Fluid 1 %; Total Cells Counted,Body Fluid 100
[2021-07-27 17:48] LABS: Glucose,Whole Blood 277 mg/dL (75-99)
--- NOTE | 2021-07-27 18:44 | CDI ---
Documentation Clarification Form Date: 07/27/2021 06:36:00 PM From: Denise Brito Admit Date: 07/27/2021 02:50:00 PM Patient Name: Carol Gore Visit Number: [id number] Discharge Date: ATTENTION: The Clinical Documentation Specialists (CDI) and [facility] Coding Staff appreciate your assistance in clarifying documentation. Please respond to the clarification below the line at the bottom and electronically sign. The CDI & [facility] Coding staff will review the response and follow-up if needed. Please note: Queries are made part of the Legal Health Record. If you have any questions, please contact the author of this message via ITS. Dr. Ronnie Louie Your documented your patient is on 15l NC and not normally on Home O2. Based on this information and the findings below, is there an additional diagnosis that is clinically appropriate for this patient? History/Risk Factors: COPD, Pulmonary HTN, DM2, Fibro, Gerd, CAD, Chest pain, Liver Cirrhosis with hx of TIPS procedure, esophageal varix banding, HTN Tobacco use: former smoker Home oxygen: none Clinical Indicators: 07/26 Pulmonary Consult: "shortness of breath likely secondary to large bilateral pleural effusion causing atelectatic changes in lung bases bilaterally. Patient is currently on oxygen at 15 L per minute nasal cannula. 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." 07/25/2021 CXR: "IMPRESSION: There is evidence for some mild heart failure which is improved compared to old exam." 07/25/211834 Admission: Vital signs: temp 98.5, HR 81, RR 18, B/P 150/66, Spo2 93% RA Pulse oximetry: per unit protocol 07/26 Pulmonary Lung/Breathing assessment:"Lungs sounds are diminished in lung bases and there is also dullness to percussion bilaterally consistent with underlying pleural effusion." ABG: not done Treatment: Breathing tx: Duoneb INH QID Solu-medrol 125mg IVP OT, followed by 60 mg IVP Q 6 hrs Lasix 40 mg IVP Q 12 hrs O2: Increased from RA to 2L NC to 3L NC to 5L NC and back down to 3L NC Is there an additional diagnosis that is clinically appropriate for this patient? [ x ] Acute Hypoxic Respiratory Failure (pO2 <60 mm Hg or SpO2 <91% on room air) [ ] Acute Hypercapnic Respiratory Failure (pCO2 >50 and pH <7.35) [ ] Other Diagnosis, please specify [ ] Unable to determine (Template Last Revised: December 2020) MTDD
--- NOTE | 2021-07-27 19:08 | P.PN ---
Subjective Progress Note Date: 07/27/21 Principal diagnosis: Bilateral pleural effusions Ascites Pancytopenia 58-year-old female with significant past medical history of liver cirrhosis, diabetes mellitus, coronary artery disease, hypertension, hyperlipidemia, heart failure, ascites, esophageal varices, pancytopenia, thrombocytopenia, anemia, pulmonary nodules, cervical cancer, history of breast surgery, history of c holecystectomy, cardiac catheterizations, hysterectomy, orthopedic surgeries, multiple large volume paracentesis, EGD with banding of esophageal varices, TIPS procedure surgery performed at [facility] in January 2021, nicotine dependence, and possible obstructive pulmonary disorder is admitted to the hospital for progressive shortness of breath with associated anasarca, and ascites. Consultation was placed by emergency department with pulmonary critical care for management of COPD. 07/26/2021 She is seen and examined emergency department. She is resting comfortably on 2 L of oxygen. She endorses fever, chills, shortness of breath, abdominal discomfort and generalized malaise for duration of 1 week. Patient had extensive diagnostic workup in the emergency department revealing pancytopenia, hyponatremia with a sodium level 131, elevated glucose of 255, elevated total bilirubin of 2.8, chest x-ray mild heart failure noted from previous x-ray. Additional diagnostics were obtained in the emergency department CT chest abdomen and pelvis with contrast, revealing bilateral pleural effusions and scattered groundglass infiltrates, ascites noted in all 4 quadrants, no splenomegaly. Ultrasound of the abdomen was obtained for diagnostic and interventional paracentesis, moderate amount of fluid thrill the abdomen largest amount of fluid in the right lower quadrant. Consultation with pulmonary critical care has been initiated by the emergency department for management of COPD, awaiting recommendations from pulmonary critical care. 07/27/2021 Patient seen and examined at bedside. She is resting comfortably on 3 L of oxygen via nasal cannula. She endorses shortness of breath at rest, exertional shortness of breath, abdominal discomfort, and generalized weakness. Review of diagnostic labs White blood cell count 9.3, hemoglobin 8.9 hematocrit 25.8, platelets 51, sodium 129, potassium 4.5, BUN 25, creatinine 1.5, total bili 1.4, AST 44, total protein 5.6, albumin 2.7. Patient has significant improvement in white blood cell count from 2.2 to 9.3 within the last 2 days; hemoglobin and hematocrit have remained stable, thrombocytopenia platelet count of 51 stable for patient's condition. Sodium has decreased from 136-129, possibly due to IV diuretics will add sodium chloride 1 g by mouth twice a day, increase in BUN and creatinine possibly due to IV diuretics will continue to monitor, avoidance of nephrotoxic drugs as possible. Patient is scheduled for interventional paracentesis due to large ascites. Objective - Vital Signs Vital signs: Vital Signs Temp 98.1 F 07/27/21 14:58 Pulse 82 07/27/21 16:31 Resp 15 07/27/21 17:18 BP 113/52 07/27/21 14:58 Pulse Ox 89 L 07/27/21 17:18 Intake & Output 07/26/21 07/27/21 07/27/21 18:59 06:59 18:59 Intake Total 900 680 Balance 900 680 Intake: Oral 900 680 Other: Voiding Method Toilet Toilet # Voids 3 1 1 # Bowel Movements 1 - Constitutional General appearance: Present: mild distress - EENT Eyes: Present: EOMI, PERRLA, normal appearance ENT: Present: normal oropharynx Ears: bilateral: normal - Neck Neck: Present: normal ROM Carotids: bilateral: upstroke normal Thyroid: bilateral: normal size - Respiratory Respiratory: bilateral: diminished (Anterior lung win), wheezing (Posterior lung win) - Cardiovascular Heart rate: 78 Rhythm: regular Heart sounds: normal: S1, S2 - Peripheral edema ankle Peripheral Edema: bilateral: 2+ - Peripheral pulses radial pulse Peripheral Pulses: bilateral: Normal dorsalis pedis Peripheral Pulses: bilateral: Normal - Gastrointestinal Gastrointestinal Comment(s): Ascites noted General gastrointestinal: Present: tenderness - Integumentary Integumentary: Present: decreased turgor, jaundiced - Neurologic Neurologic: Present: CNII-XII intact - Musculoskeletal Musculoskeletal: Present: generalized weakness - Psychiatric Psychiatric: Present: A&O x's 3, appropriate affect, intact judgment & insight - Allied health notes Allied health notes reviewed: nursing - Labs CBC & Chem 7: 07/27/21 05:22 07/27/21 05:22 Labs: Abnormal Lab Results - Last 24 Hours (Table) 07/25/21 07/26/21 07/26/21 Range/Units 19:19 19:59 20:44 RBC (3.80-5.40) m/uL Hgb (11.4-16.0) gm/dL Hct (34.0-46.0) % RDW (11.5-15.5) % Plt Count (150-450) k/uL Neutrophils # (1.3-7.7) k/uL Lymphocytes # (1.0-4.8) k/uL Sodium 131 L (137-145) mmol/L Carbon Dioxide 18 L (22-30) mmol/L BUN 20 H (7-17) mg/dL Creatinine 1.52 H (0.52-1.04) mg/dL Glucose 295 H (74-99) mg/dL POC Glucose (mg/dL) 366 H (75-99) mg/dL Total Bilirubin (0.2-1.3) mg/dL AST (14-36) U/L Total Protein (6.3-8.2) g/dL Albumin (3.5-5.0) g/dL Procalcitonin 0.19 H (0.02-0.09) ng/mL 07/26/21 07/27/21 07/27/21 Range/Units 21:03 02:51 05:22 RBC 2.67 L (3.80-5.40) m/uL Hgb 8.9 L (11.4-16.0) gm/dL Hct 25.8 L (34.0-46.0) % RDW 16.3 H (11.5-15.5) % Plt Count 51 L (150-450) k/uL Neutrophils # 8.5 H (1.3-7.7) k/uL Lymphocytes # 0.4 L (1.0-4.8) k/uL Sodium (137-145) mmol/L Carbon Dioxide (22-30) mmol/L BUN (7-17) mg/dL Creatinine (0.52-1.04) mg/dL Glucose (74-99) mg/dL POC Glucose (mg/dL) 328 H 208 H (75-99) mg/dL Total Bilirubin (0.2-1.3) mg/dL AST (14-36) U/L Total Protein (6.3-8.2) g/dL Albumin (3.5-5.0) g/dL Procalcitonin (0.02-0.09) ng/mL 0907/27/21 07/27/21 Range/Units 05:22 07:41 12:53 RBC (3.80-5.40) m/uL Hgb (11.4-16.0) gm/dL Hct (34.0-46.0) % RDW (11.5-15.5) % Plt Count (150-450) k/uL Neutrophils # (1.3-7.7) k/uL Lymphocytes # (1.0-4.8) k/uL Sodium 129 L (137-145) mmol/L Carbon Dioxide 20 L (22-30) mmol/L BUN 25 H (7-17) mg/dL Creatinine 1.55 H (0.52-1.04) mg/dL Glucose 168 H (74-99) mg/dL POC Glucose (mg/dL) 174 H 149 H (75-99) mg/dL Total Bilirubin 1.4 H (0.2-1.3) mg/dL AST 44 H (14-36) U/L Total Protein 5.6 L (6.3-8.2) g/dL Albumin 2.7 L (3.5-5.0) g/dL Procalcitonin (0.02-0.09) ng/mL 07/27/21 Range/Units 17:46 RBC (3.80-5.40) m/uL Hgb (11.4-16.0) gm/dL Hct (34.0-46.0) % RDW (11.5-15.5) % Plt Count (150-450) k/uL Neutrophils # (1.3-7.7) k/uL Lymphocytes # (1.0-4.8) k/uL Sodium (137-145) mmol/L Carbon Dioxide (22-30) mmol/L BUN (7-17) mg/dL Creatinine (0.52-1.04) mg/dL Glucose (74-99) mg/dL POC Glucose (mg/dL) 277 H (75-99) mg/dL Total Bilirubin (0.2-1.3) mg/dL AST (14-36) U/L Total Protein (6.3-8.2) g/dL Albumin (3.5-5.0) g/dL Procalcitonin (0.02-0.09) ng/mL Microbiology - 24 Hours (Table) 07/25/21 22:14 Blood Culture - Preliminary Blood No Growth after 24 hours 07/25/21 22:32 Blood Culture - Preliminary Blood No Growth after 24 hours Assessment and Plan Assessment: Bilateral pleural effusions Pancytopenia Scattered ground infiltrates Liver cirrhosis with large ascites Pancytopenia secondary to liver failure and splenomegaly Hyperbilirubinemia Coronary artery disease, awaiting CABG at [facility] History of cervical cancer with hysterectomy Diabetes mellitus insulin-dependent Fibromyalgia GERD/reflux Hyperlipidemia History of lung nodules History of TIPS performed at [facility] January 2021 History of cholecystectomy History of cardiac catheterizations History of orthopedic surgeries History of multiple large volume paracentesis History of EGD with banding of esophageal varices Hypertension Awaiting liver transplant [facility] Full code Plan: Bilateral pleural effusions, initiate Lasix 40 mg IV push twice a day, consultation with pulmonary critical care for recommendations Renal insufficiency, continues to monitor and avoid nephrotoxic drugs Hyponatremia, sodium chloride 1 g by mouth twice a day Scattered ground infiltrates, continue broad-spectrum antibiotics Ascites, awaiting interventional radiology for paracentesis Possible COPD continue breathing treatments We'll repeat a.m. labs Continue home medications Continue to monitor vital signs and diagnostic testing Further recommendations to come based on patient's clinical condition Time with Patient: Greater than 30
[2021-07-27 20:00] LABS: Glucose,Whole Blood 216 mg/dL (75-99)
[2021-07-27] MEDS: ATORVASTATIN 40 MG TAB PO SCH (20:43)
[2021-07-27] MEDS: ZINC SULFATE 220 MG CAP PO SCH (20:49)
[2021-07-27] MEDS: SERTRALINE 25 MG TAB PO SCH (20:50)
[2021-07-28 03:12] LABS: Glucose,Whole Blood 97 mg/dL (75-99)
[2021-07-28 06:58] LABS: Glucose,Whole Blood 111 mg/dL (75-99)
[2021-07-28 07:11] LABS: ALT 23 U/L (4-34); AST 50 U/L (14-36); African American GFR (CKD) 37 (>60 ml/min/1.73 sqM); Albumin 2.4 g/dL (3.5-5.0); Albumin/Globulin Ratio 0.9; Alkaline Phosphatase 90 U/L (38-126); Anion Gap 7 mmol/L; Blood Urea Nitrogen 27 mg/dL (7-17); Carbon Dioxide 21 mmol/L (22-30); Chloride 102 mmol/L (98-107); Globulin 2.6 g/dL; Glucose 76 mg/dL (74-99); Non-African American GFR(CKD) 32 (>60 ml/min/1.73 sqM); Potassium 3.7 mmol/L (3.5-5.1); Sodium 130 mmol/L (137-145); Total Bilirubin 1.1 mg/dL (0.2-1.3)
[2021-07-28] MEDS: IPRATROPIUM-ALBUTEROL 3 ML NEB INHALATION SCH ×4 (07:40→20:36)
--- NOTE | 2021-07-28 08:16 | XR ---
EXAMINATION TYPE: XR chest 1V DATE OF EXAM: 07/28/2021 COMPARISON: Chest x-ray 07/25/2021, chest CT 07/26/2021 HISTORY: Pleural effusions TECHNIQUE: Single frontal view of the chest is obtained. FINDINGS: There is prominence of the pulmonary vascularity and interstitium. No evident pneumothorax . Heart is enlarged. Blunting of the costophrenic angles is noted. Bone mineralization is normal. IMPRESSION: Correlate for congestive heart failure, patient with bilateral pleural effusions. Pneumo louie not excluded.
[2021-07-28] MEDS: RIFAXIMIN 550 MG TABLET PO SCH ×2 (09:13→21:45)
[2021-07-28] MEDS: VITAMIN A 10,000 UNIT (3000 MCG) CAPSULE PO SCH (09:13)
[2021-07-28] MEDS: EZETIMIBE 10 MG TAB PO SCH (09:13)
[2021-07-28] MEDS: MONTELUKAST 10 MG TAB PO SCH (09:14)
[2021-07-28] MEDS: POTASSIUM CHLORIDE ER 20 MEQ TAB.ER PO SCH (09:14)
[2021-07-28] MEDS: PANTOPRAZOLE 40 MG TABLET PO SCH (09:14)
[2021-07-28] MEDS: INSULIN PUMP MEAL BOLUS 1 UNIT MISC MISCELLANE SCH ×4 (09:14→21:45)
[2021-07-28] MEDS: FERROUS SULFATE 325 MG TAB PO SCH (09:14)
[2021-07-28] MEDS: FUROSEMIDE 10 MG/ML 4 ML VIAL IV SCH (09:16)
[2021-07-28] MEDS: LACTULOSE 20 GM/30 ML CUP PO SCH (09:16)
[2021-07-28 10:17] LABS: Basophils # (A) 0.01 X 10*3/uL (0.00-0.10); Basophils % (A) 0.2 %; Eosinophils # (A) 0.05 X 10*3/uL (0.04-0.35); Eosinophils % (A) 0.8 %; HCT 23.3 % (37.2-46.3); HGB 7.8 g/dL (12.0-15.0); Lymphocytes # (A) 0.59 X 10*3/uL (0.90-5.00); MCH 32.5 pg (27.0-32.0); MCHC 33.5 g/dL (32.0-37.0); MCV 97.1 fL (80.0-97.0); Mean Platelet Volume 11.5 fL (9.5-12.2); Monocytes # (A) 0.44 X 10*3/uL (0.20-1.00); Monocytes % (A) 6.7 %; Neutrophils # (A) 5.42 X 10*3/uL (1.80-7.70); Neutrophils % (A) 82.7 %; Platelet Count 43 X 10*3/uL (140-440); RDW 16.7 % (11.5-14.5); WBC 6.55 X 10*3/uL (4.50-10.00)
[2021-07-28 11:34] LABS: Glucose,Whole Blood 143 mg/dL (75-99)
--- NOTE | 2021-07-28 12:52 | P.PN ---
Subjective Progress Note Date: 07/28/21 This is a very pleasant 66-year-old female patient was hospitalized for worsening shortness of breath. The patient is known case of liver failure/cirrhosis. 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 The patient has been under the care of the pathologist at the [facility] and she was having significant amount of fluid overload and back in January 2021, the patient underwent a TTIPS procedure to control the fluid balance and the patient has not required any paracentesis since then. The patient has a known case of liver cirrhosis. She has presented in the past our hospital because of a massive upper GI bleed and she is known to have portal hypertension and esophageal varices. The patient came into the hospital because of worsening shortness of breath and fluid overload. She reported increase in swelling in the lower extremities. She also had some abdominal distention worsening shortness of breath. A computed tomography scan of the chest abdomen and pelvis was done. CAT scan showed bilateral pleural effusion and some areas of scattered groundglass infiltrates. No focal consolidation. No evidence of any pulmonary embolism. The liver showed a intrahepatic stents and the gallbladder was not clearly visualized. There was evidence of ascites and there was also evidence of splenomegaly. The patient is currently on IV Lasix 40 mg every 12 hours and she is making adequate amount of urine output. Her white cell count is at 1.57 and the patient has pancytopenia with a hemoglobin of 8.5 and a platelet count of 41 due to hypersplenism and liver cirrhosis. Her sed rate is at 14. Correlation profile is within normal limits. BUN is at 14 with a creatinine of 1.09. Rest of the electrodes are normal. She is diabetic and she has an insulin pump. The blood sugar is elevated at 403 from today. Her LFTs are normal. Her total bilirubin is at 2.8. Total protein was 5.6 with albumin level of 2.6. Troponins are negative for now. COVID-19 testing was negative. Influenza she is awake and alert. No has signs of any hepatitic encephalopathy. No recent bleeding. No excessive drinking. No history of alcoholism. No other complaints otherwise for now. No history of any congestion heart failure. She has been listed at the [facility] for liver chest palpitation. There was an issue with a nodule in her right lung and for that reason a PET scan was ordered and meanwhile she was he activated from the transplant list. I do not see any nodules on the CAT scan of the chest. This could be probably of sick unit by the underlying pleural effusion. The patient is seen today 07/27/2021 in follow-up on the regular medical floor. She did undergo paracentesis by interventional radiology this morning. She is maintaining good O2 saturations up to 100% on 3 L/m per nasal cannula. Blood cultures reveal no growth. White count 9.3. Hemoglobin 8.9. Platelet count 51,000. Sodium 129. Potassium 4.5. Creatinine 1.55. AST 44, ALT 22. She is continued on IV diuretics. The patient is seen today 07/28/2021 in follow-up on the regular medical floor. She is currently sitting up in bed. Awake and alert in no acute distress. Maintaining O2 saturations in the 90s on 2 L/m per nasal cannula. She does desaturate to 86% on room air with a brief walk. White count 6.5. Hemoglobin 7.8. Platelet count 43. Sodium 130. Potassium 3.7. Creatinine 1.65. Glucose 111. She did undergo paracentesis with approximate 3 L removed yesterday. Fluid culture pending. Today's chest x-ray continues show some evidence of mild fluid volume overload. Minimal bilateral effusions. She is continued on Lasix 40 mg IV every 12 hours. Remains on bronchodilators. Antibiotics in the form of Levaquin. Objective - Vital Signs Vital signs: Vital Signs Temp 97.3 F L 07/28/21 06:54 Pulse 91 07/28/21 11:41 Resp 16 07/28/21 09:20 BP 119/63 07/28/21 06:54 Pulse Ox 88 L 07/28/21 09:20 Intake & Output 07/27/21 07/28/21 07/28/21 18:59 06:59 18:59 Intake Total 680 Balance 680 Intake: Oral 680 Other: Voiding Method Toilet Toilet Toilet # Voids 1 2 1 - Exam Gen. appearance pleasant 66-year-old female patient, is calm comfortable, in no acute distress on 2 L nasal cannula Head exam was generally normal. There was no scleral icterus or corneal arcus. Mucous membranes were moist. Neck was supple and without jugular venous distension, thyromegaly, or carotid b ruits. Carotids were easily palpable bilaterally. There was no adenopathy. Lungs sounds are diminished in lung bases and there is also dullness to percussion bilaterally consistent with underlying pleural effusion. Heart sounds are regular and there is accentuation of the second heart sound, probably related to underlying pulmonary hypertension. Faint murmur systolic ejection murmur grade 2/6 is also appreciated. Abdomen is distended and the patient has underlying ascites. His fluid wave and shifting dullness. There is also some splenomegaly. No direct tenderness. No rebound tensile guarding. Patient has a small umbilical hernia. Extremities reveal trace edema and there is no cyanosis or clubbing. Neurologically, awake and alert there is no focal neurological deficits. Examination of the skin revealed no evidence of significant rashes, suspicious appearing nevi or other concerning lesions. - Labs CBC & Chem 7: 07/28/21 05:05 07/28/21 05:05 Labs: Abnormal Lab Results - Last 24 Hours (Table) 07/27/21 07/27/21 07/27/21 Range/Units 12:53 17:46 19:58 RBC (4.10-5.20) X 10*6/uL Hgb (12.0-15.0) g/dL Hct (37.2-46.3) % MCV (80.0-97.0) fL MCH (27.0-32.0) pg RDW (11.5-14.5) % Plt Count (140-440) X 10*3/uL Plt Count Comment Lymphocytes # (0.90-5.00) X 10*3/uL Immature Plt Fraction (1.1-6.1) % Sodium (137-145) mmol/L Carbon Dioxide (22-30) mmol/L BUN (7-17) mg/dL Creatinine (0.52-1.04) mg/dL POC Glucose (mg/dL) 149 H 277 H 216 H (75-99) mg/dL Calcium (8.4-10.2) mg/dL AST (14-36) U/L Total Protein (6.3-8.2) g/dL Albumin (3.5-5.0) g/dL 07/28/21 07/28/21 07/28/21 Range/Units 05:05 05:05 06:54 RBC 2.40 L (4.10-5.20) X 10*6/uL Hgb 7.8 L (12.0-15.0) g/dL Hct 23.3 L (37.2-46.3) % MCV 97.1 H (80.0-97.0) fL MCH 32.5 H (27.0-32.0) pg RDW 16.7 H (11.5-14.5) % Plt Count 43 L (140-440) X 10*3/uL Plt Count Comment DECREASED A Lymphocytes # 0.59 L (0.90-5.00) X 10*3/uL Immature Plt Fraction 10.0 H (1.1-6.1) % Sodium 130 L (137-145) mmol/L Carbon Dioxide 21 L (22-30) mmol/L BUN 27 H (7-17) mg/dL Creatinine 1.65 H (0.52-1.04) mg/dL POC Glucose (mg/dL) 111 H (75-99) mg/dL Calcium 8.0 L (8.4-10.2) mg/dL AST 50 H (14-36) U/L Total Protein 5.0 L (6.3-8.2) g/dL Albumin 2.4 L (3.5-5.0) g/dL 07/28/21 Range/Units 11:32 RBC (4.10-5.20) X 10*6/uL Hgb (12.0-15.0) g/dL Hct (37.2-46.3) % MCV (80.0-97.0) fL MCH (27.0-32.0) pg RDW (11.5-14.5) % Plt Count (140-440) X 10*3/uL Plt Count Comment Lymphocytes # (0.90-5.00) X 10*3/uL Immature Plt Fraction (1.1-6.1) % Sodium (137-145) mmol/L Carbon Dioxide (22-30) mmol/L BUN (7-17) mg/dL Creatinine (0.52-1.04) mg/dL POC Glucose (mg/dL) 143 H (75-99) mg/dL Calcium (8.4-10.2) mg/dL AST (14-36) U/L Total Protein (6.3-8.2) g/dL Albumin (3.5-5.0) g/dL Microbiology - Last 24 Hours (Table) 07/27/21 10:44 Gram Stain - Preliminary Ascites Fluid Body Fluid Culture - Preliminary 07/25/21 22:32 Blood Culture - Preliminary Blood No Growth after 48 hours 07/25/21 22:14 Blood Culture - Preliminary Blood No Growth after 48 hours 07/27/21 10:44 Anaerobic Culture - Preliminary Ascites Fluid Assessment and Plan Assessment: 1 Acute hypoxemic respiratory failure secondary to large bilateral pleural e ffusion causing atelectatic changes in lung bases bilaterally. Patient is currently improved on oxygen at 2 L per minute nasal cannula. Usually she is not oxygen dependent at home. She is currently on diuretics. 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 Status post paracentesis on 07/27/2021 with approximate 3 L removed. 2 liver cirrhosis with large ascites. 3 previous history of TIPS regarding liver cirrhosis and recurrent ascites 4 pancytopenia secondary to liver failure/hypersplenism 5 portal hypertension. History of GI bleed, inactive in stable for now 6 questionable lung mass for which a PET scan was ordered for this patient and the patient was deactivated from the transplantation list. 7 history of psoriatic arthritis 8 history of diabetes mellitus currently on insulin pump. Blood sugar seems to be under poor control monitor the blood sugar from today is quite elevated. 9 fibromyalgia 10 coronary artery disease without previous history of any underlying cardiomyopathy with CHF. 11 hyperbilirubinemia secondary to liver cirrhosis Plan: The patient was seen and evaluated by Dr. Louie Post paracentesis yesterday with 3 L removed Chest x-ray and labs reviewed Not enough fluid for thoracentesis at this time Continue diuretics, bronchodilators, antibiotics Down to 2 L nasal cannula We will continue to follow I, the cosigning physician, performed a history & physical examination of the patient. Lungs sounds diminished in the posterior basses. Maintaining good O2 saturations in the 90s on 2L min per nasal canula. I discussed the assessment and plan of care with my nurse practitioner, Bella Venegas. I attest to the above note as dictated by her.
[2021-07-28 17:32] LABS: Glucose,Whole Blood 204 mg/dL (75-99)
--- NOTE | 2021-07-28 18:58 | P.PN ---
Subjective Progress Note Date: 07/28/21 Principal diagnosis: Bilateral pleural effusions Ascites Pancytopenia 58-year-old female with significant past medical history of liver cirrhosis, diabetes mellitus, coronary artery disease, hypertension, hyperlipidemia, heart failure, ascites, esophageal varices, pancytopenia, thrombocytopenia, anemia, pulmonary nodules, cervical cancer, history of breast surgery, history of c holecystectomy, cardiac catheterizations, hysterectomy, orthopedic surgeries, multiple large volume paracentesis, EGD with banding of esophageal varices, TIPS procedure surgery performed at [facility] in January 2021, nicotine dependence, and possible obstructive pulmonary disorder is admitted to the hospital for progressive shortness of breath with associated anasarca, and ascites. Consultation was placed by emergency department with pulmonary critical care for management of COPD. 07/26/2021 She is seen and examined emergency department. She is resting comfortably on 2 L of oxygen. She endorses fever, chills, shortness of breath, abdominal discomfort and generalized malaise for duration of 1 week. Patient had extensive diagnostic workup in the emergency department revealing pancytopenia, hyponatremia with a sodium level 131, elevated glucose of 255, elevated total bilirubin of 2.8, chest x-ray mild heart failure noted from previous x-ray. Additional diagnostics were obtained in the emergency department CT chest abdomen and pelvis with contrast, revealing bilateral pleural effusions and scattered groundglass infiltrates, ascites noted in all 4 quadrants, no splenomegaly. Ultrasound of the abdomen was obtained for diagnostic and interventional paracentesis, moderate amount of fluid thrill the abdomen largest amount of fluid in the right lower quadrant. Consultation with pulmonary critical care has been initiated by the emergency department for management of COPD, awaiting recommendations from pulmonary critical care. 07/27/2021 Patient seen and examined at bedside. She is resting comfortably on 3 L of oxygen via nasal cannula. She endorses shortness of breath at rest, exertional shortness of breath, abdominal discomfort, and generalized weakness. Review of diagnostic labs White blood cell count 9.3, hemoglobin 8.9 hematocrit 25.8, platelets 51, sodium 129, potassium 4.5, BUN 25, creatinine 1.5, total bili 1.4, AST 44, total protein 5.6, albumin 2.7. Patient has significant improvement in white blood cell count from 2.2 to 9.3 within the last 2 days; hemoglobin and hematocrit have remained stable, thrombocytopenia platelet count of 51 stable for patient's condition. Sodium has decreased from 136-129, possibly due to IV diuretics will add sodium chloride 1 g by mouth twice a day, increase in BUN and creatinine possibly due to IV diuretics will continue to monitor, avoidance of nephrotoxic drugs as possible. Patient is scheduled for interventional paracentesis due to large ascites. 07/28/2021 Patient seen and examined at bedside. She is resting comfortably on 1.5 L of oxygen via nasal cannula to keep oxygen saturations equal to or greater than 88%. She states decrease in shortness of breath and exertional shortness of breath, and minimal abdominal discomfort. Review of diagnostic labs; hemoglobin has decreased from 8.9-7.8, platelets have remained stable, increase in sodium from 129 to 130, potassium 3.7, renal function creatinine 1.65 BUN 27, transitioning from IV diuretics to oral Lasix, avoiding nephrotoxic drugs, total bilirubin has decreased from 3.0 on admission to 1.1. Will obtain CBC at 1900 to reassess hemoglobin and hematocrit. Objective - Vital Signs Vital signs: Vital Signs Temp 97.9 F 07/28/21 15:15 Pulse 91 07/28/21 15:42 Resp 20 07/28/21 15:15 BP 105/50 07/28/21 15:15 Pulse Ox 98 07/28/21 15:35 Intake & Output 07/27/21 07/28/21 07/28/21 18:59 06:59 18:59 Intake Total 680 360 Balance 680 360 Intake: Oral 680 360 Other: Voiding Method Toilet Toilet Toilet # Voids 1 2 1 - Constitutional General appearance: Present: cooperative, mild distress, obese - EENT Eyes: Present: EOMI, PERRLA, normal appearance ENT: Present: normal oropharynx Ears: bilateral: normal - Neck Neck: Present: normal ROM Carotids: bilateral: upstroke normal Thyroid: bilateral: normal size - Respiratory Respiratory: bilateral: diminished (Anterior and posterior lung win) - Cardiovascular Heart rate: 87 Rhythm: regular Heart sounds: normal: S1, S2 - Peripheral pulses radial pulse Peripheral Pulses: bilateral: Normal dorsalis pedis Peripheral Pulses: bilateral: Normal - Gastrointestinal General gastrointestinal: Present: normal bowel sounds, soft, tenderness (Mild tenderness over paracentesis site dressing) - Integumentary Integumentary: Present: pale - Musculoskeletal Musculoskeletal: Present: generalized weakness - Psychiatric Psychiatric: Present: A&O x's 3 - Allied health notes Allied health notes reviewed: nursing - Labs CBC & Chem 7: 07/28/21 05:05 07/28/21 05:05 Labs: Abnormal Lab Results - Last 24 Hours (Table) 07/27/21 07/28/21 07/28/21 Range/Units 19:58 05:05 05:05 RBC 2.40 L (4.10-5.20) X 10*6/uL Hgb 7.8 L (12.0-15.0) g/dL Hct 23.3 L (37.2-46.3) % MCV 97.1 H (80.0-97.0) fL MCH 32.5 H (27.0-32.0) pg RDW 16.7 H (11.5-14.5) % Plt Count 43 L (140-440) X 10*3/uL Plt Count Comment DECREASED A Lymphocytes # 0.59 L (0.90-5.00) X 10*3/uL Immature Plt Fraction 10.0 H (1.1-6.1) % Sodium 130 L (137-145) mmol/L Carbon Dioxide 21 L (22-30) mmol/L BUN 27 H (7-17) mg/dL Creatinine 1.65 H (0.52-1.04) mg/dL POC Glucose (mg/dL) 216 H (75-99) mg/dL Calcium 8.0 L (8.4-10.2) mg/dL AST 50 H (14-36) U/L Total Protein 5.0 L (6.3-8.2) g/dL Albumin 2.4 L (3.5-5.0) g/dL 07/28/21 07/28/21 07/28/21 Range/Units 06:54 11:32 17:19 RBC (4.10-5.20) X 10*6/uL Hgb (12.0-15.0) g/dL Hct (37.2-46.3) % MCV (80.0-97.0) fL MCH (27.0-32.0) pg RDW (11.5-14.5) % Plt Count (140-440) X 10*3/uL Plt Count Comment Lymphocytes # (0.90-5.00) X 10*3/uL Immature Plt Fraction (1.1-6.1) % Sodium (137-145) mmol/L Carbon Dioxide (22-30) mmol/L BUN (7-17) mg/dL Creatinine (0.52-1.04) mg/dL POC Glucose (mg/dL) 111 H 143 H 204 H (75-99) mg/dL Calcium (8.4-10.2) mg/dL AST (14-36) U/L Total Protein (6.3-8.2) g/dL Albumin (3.5-5.0) g/dL Microbiology - Last 24 Hours (Table) 07/27/21 10:44 Gram Stain - Preliminary Ascites Fluid Body Fluid Culture - Preliminary 07/25/21 22:32 Blood Culture - Preliminary Blood No Growth after 48 hours 07/25/21 22:14 Blood Culture - Preliminary Blood No Growth after 48 hours 07/27/21 10:44 Anaerobic Culture - Preliminary Ascites Fluid - Imaging and Cardiology Chest x-ray: report reviewed Assessment and Plan Assessment: Bilateral pleural effusions Pancytopenia Scattered ground infiltrates Liver cirrhosis with large ascites Pancytopenia secondary to liver failure and splenomegaly Hyperbilirubinemia Coronary artery disease, awaiting CABG at [facility] History of cervical cancer with hysterectomy Diabetes mellitus insulin-dependent Fibromyalgia GERD/reflux Hyperlipidemia History of lung nodules History of TIPS performed at [facility] January 2021 History of cholecystectomy History of cardiac catheterizations History of orthopedic surgeries History of multiple large volume paracentesis History of EGD with banding of esophageal varices Hypertension Awaiting liver transplant [facility] Full code Plan: Bilateral pleural effusions, transitioned from IV Lasix to oral Lasix Renal insufficiency, continues to monitor and avoid nephrotoxic drugs Hyponatremia, sodium chloride 1 g by mouth twice a day Scattered ground infiltrates, continue broad-spectrum antibiotics Ascites, interventional radiology was able to remove 3 L via paracentesis Possible COPD continue breathing treatments We'll repeat a.m. labs Continue home medications Continue to monitor vital signs and diagnostic testing Further recommendations to come based on patient's clinical condition Hopeful discharge within 24 hours Time with Patient: Greater than 30
[2021-07-28 19:10] LABS: Anisocytosis Slight; Basophils % (A) 0 %; Eosinophils # (A) 0.1 k/uL (0-0.7); Eosinophils % (A) 1 %; HCT 25.4 % (34.0-46.0); HGB 8.4 gm/dL (11.4-16.0); Lymphocytes # (A) 0.4 k/uL (1.0-4.8); Lymphocytes % (A) 9 %; MCH 33.3 pg (25.0-35.0); MCV 100.7 fL (80.0-100.0); Macrocytosis Slight; Mean Platelet Volume 9.7; Monocytes # (A) 0.3 k/uL (0-1.0); Monocytes % (A) 8 %; Neutrophils # (A) 3.6 k/uL (1.3-7.7); Neutrophils % (A) 81 %; Poikilocytosis Slight; RBC 2.53 m/uL (3.80-5.40); WBC 4.4 k/uL (3.8-10.6)
[2021-07-28 19:12] LABS: Platelet Count 45 k/uL (150-450)
[2021-07-28 21:26] LABS: Glucose,Whole Blood 161 mg/dL (75-99)
[2021-07-28] MEDS: ZINC SULFATE 220 MG CAP PO SCH (21:45)
[2021-07-28] MEDS: ATORVASTATIN 40 MG TAB PO SCH (21:45)
[2021-07-28] MEDS: SERTRALINE 25 MG TAB PO SCH (21:45)
[2021-07-28] MEDS: SODIUM CHLORIDE TAB 1 GM TAB PO SCH (21:47)
[2021-07-29 02:16] LABS: Glucose,Whole Blood 91 mg/dL (75-99)
[2021-07-29 05:17] LABS: Basophils % (A) 0 %; Eosinophils # (A) 0.2 k/uL (0-0.7); Eosinophils % (A) 4 %; HCT 25.3 % (34.0-46.0); HGB 8.4 gm/dL (11.4-16.0); Lymphocytes # (A) 0.5 k/uL (1.0-4.8); Lymphocytes % (A) 11 %; MCHC 33.4 g/dL (31.0-37.0); MCV 98.9 fL (80.0-100.0); Macrocytosis Slight; Mean Platelet Volume 10.3; Monocytes # (A) 0.3 k/uL (0-1.0); Monocytes % (A) 6 %; Neutrophils # (A) 3.9 k/uL (1.3-7.7); Neutrophils % (A) 78 %; Poikilocytosis Slight; RBC 2.55 m/uL (3.80-5.40); RDW 15.9 % (11.5-15.5)
[2021-07-29 05:23] LABS: Platelet Count 51 k/uL (150-450)
[2021-07-29 05:37] LABS: ALT 26 U/L (4-34); AST 53 U/L (14-36); African American GFR (CKD) 37 (>60 ml/min/1.73 sqM); Albumin 2.3 g/dL (3.5-5.0); Albumin/Globulin Ratio 0.9; Alkaline Phosphatase 89 U/L (38-126); Anion Gap 4 mmol/L; Blood Urea Nitrogen 23 mg/dL (7-17); Calcium 7.9 mg/dL (8.4-10.2); Carbon Dioxide 24 mmol/L (22-30); Chloride 103 mmol/L (98-107); Globulin 2.6 g/dL; Glucose 106 mg/dL (74-99); Non-African American GFR(CKD) 32 (>60 ml/min/1.73 sqM); Potassium 3.9 mmol/L (3.5-5.1); Sodium 131 mmol/L (137-145); Total Bilirubin 1.1 mg/dL (0.2-1.3); Total Protein 4.9 g/dL (6.3-8.2)
[2021-07-29] MEDS ORDERED: FUROSEMIDE 10 MG/ML 4 ML VIAL IV STA (06:54)
--- NOTE | 2021-07-29 07:12 | P.DS ---
Providers Date of admission: 07/27/21 14:50 Expected date of discharge: 07/29/21 Attending physician: Dario Underwood Consults: 07/25/21 21:54 Consult Physician Routine Consulting Provider: Ronnie Louie Consult Reason/Comments: dyspnea Do you want consulting provider notified?: Yes Primary care physician: Dario Underwood Hospital Course: 66-year-old female with significant past medical history of liver cirrhosis, diabetes mellitus, coronary artery disease, hypertension, hyperlipidemia, heart failure, ascites, esophageal varices, pancytopenia, thrombocytopenia, anemia, pulmonary nodules, cervical cancer, history of breast surgery, history of cholecystectomy, cardiac catheterizations, hysterectomy, orthopedic surgeries, multiple large volume paracentesis, EGD with banding of esophageal varices, TIPS procedure surgery performed at [facility] in January 2021, nicotine dependence, and possible obstructive pulmonary disorder is admitted to the hospital for progressive shortness of breath with associated anasarca, and ascites. Consultation was placed by emergency department with pulmonary critical care for management of COPD. patient had subsequent CTA of the chest abdomen and pelvis revealing bilateral pleural effusions, groundglass opacities, and ascites in all 4 quadrants. Patient had subsequent ultrasound for paracentesis, which interventional radiology was able to relieve 3 L of fluid off of abdomen. Bilateral pleural effusions improved with IV diuresis. Mild infiltrated and mildly elevated Pro calcitonin improved with broad-spectrum antibiotic therapy. Pancytopenia improved throughout hospital stay with continuation of medical treatment set by the [facility]. detention staff performed and rheumatoid pulse ox with patient, patient will require oxygen therapy to keep oxygen saturations equal to or greater than 88% due to underlying conditions of heart failure, which initial BNP on admission was 1510. Patient will be discharged in stable condition with guarded prognosis due to multiple comorbidities. Patient to follow-up with primary care in 1-2 days. - Constitutional General appearance: Present: cooperative, mild distress, obese - EENT Eyes: Present: EOMI, PERRLA, normal appearance ENT: Present: normal oropharynx Ears: bilateral: normal - Neck Neck: Present: normal ROM Carotids: bilateral: upstroke normal Thyroid: bilateral: normal size - Respiratory Respiratory: bilateral: diminished (Anterior and posterior lung win) - Cardiovascular Heart rate: 87 Rhythm: regular Heart sounds: normal: S1, S2 - Peripheral pulses radial pulse Peripheral Pulses: bilateral: Normal dorsalis pedis Peripheral Pulses: bilateral: Normal - Gastrointestinal General gastrointestinal: Present: normal bowel sounds, soft, tenderness (Mild tenderness over paracentesis site dressing) - Integumentary Integumentary: Present: pale - Musculoskeletal Musculoskeletal: Present: generalized weakness - Psychiatric Psychiatric: Present: A&O x's 3 Assessment: Bilateral pleural effusions Pancytopenia Scattered ground infiltrates Liver cirrhosis with large ascites Pancytopenia secondary to liver failure and splenomegaly Hyperbilirubinemia Coronary artery disease, awaiting CABG at [facility] History of cervical cancer with hysterectomy Diabetes mellitus insulin-dependent Fibromyalgia GERD/reflux Hyperlipidemia History of lung nodules History of TIPS performed at [facility] January 2021 History of cholecystectomy History of cardiac catheterizations History of orthopedic surgeries History of multiple large volume paracentesis History of EGD with banding of esophageal varices Hypertension Awaiting liver transplant [facility] Full code Final diagnosis Bilateral pleural effusions improved with IV diuretics Pancytopenia, improved Liver cirrhosis with large ascites, interventional radiology remove 3 L of fluid via paracentesis Hyperbilirubinemia, improved throughout hospital stay Diabetes mellitus insulin-dependent, improved with discontinuation of corticosteroids and tight glycemic control Mild infiltrate, improved with Levaquin Fluid overload improved with IV diuresis Possible COPD improved with [id number] breathing treatments Bilateral pleural effusions, possible COPD patient will require 2-4 L of oxygen to keep oxygen saturation at 88% Health Concerns: Multiple comorbidities Complexity of medical treatment plan Pertinent Studies: Serial chest x-rays; initial chest x-ray showed mild heart failure; second chest x-ray showed possible heart failure with bilateral pleural effusions, pneumonia not excluded CTA of the chest abdomen and pelvis; bilateral pleural effusions and scattered ground glass infiltrates, ascites in all 4 quadrants, splenomegaly Ultrasound of the abdomen for interventional radiology showed ascites in all 4 quadrants largest in the right quadrants Procedures: Paracentesis performed by interventional radiology approximation of 3 L of fluid taken off of abdomen Patient Condition at Discharge: Fair Plan - Discharge Summary New Discharge Prescriptions: New Levofloxacin [Levaquin] 750 mg PO DAILY 3 Days #3 tab Sodium Chloride Tab 1 gm PO BID 10 Days #20 tab Continue INSULIN LISPRO (For Pump) [humaLOG (For Pump)] 0.01 units SQ-PUMP CONTINUOUS Ezetimibe [Zetia] 10 mg PO DAILY Sertraline [Zoloft] 25 mg PO DAILY EPINEPHrine [Epipen 2-Sanchez] 0.3 mg IM ONCE PRN PRN Reason: Anaphylaxis Lactulose 20 gm PO DAILY Ergocalciferol (Vitamin D2) [Vitamin D2] 50,000 unit PO JOE Atorvastatin [Lipitor] 40 mg PO HS Vitamin A Acetate [Vitamin A] 20,000 unit SL DAILY Potassium Chloride ER [K-Dur 20] 20 meq PO DAILY Rifaximin [Xifaxan] 550 mg PO BID Midodrine HCl [ProAmatine] 10 mg PO TID PRN PRN Reason: low blood pressure Pantoprazole Sodium [Protonix] 40 mg PO DAILY Furosemide [Lasix] 20 mg PO BID Montelukast [Singulair] 10 mg PO DAILY #90 tab Ferrous Sulfate [Iron] 325 mg PO DAILY Zinc 50 mg PO DAILY 90 Days #90 tab Discharge Medication List Ezetimibe [Zetia] 10 mg PO DAILY 09/04/16 [History] INSULIN LISPRO (For Pump) [humaLOG (For Pump)] 0.01 units SQ-PUMP CONTINUOUS 09/04/16 [History] Sertraline [Zoloft] 25 mg PO DAILY 01/12/17 [History] EPINEPHrine [Epipen 2-Sanchez] 0.3 mg IM ONCE PRN 11/23/17 [History] Lactulose 20 gm PO DAILY 08/22/18 [History] Ergocalciferol (Vitamin D2) [Vitamin D2] 50,000 unit PO JOE 09/17/18 [History] Atorvastatin [Lipitor] 40 mg PO HS 02/03/20 [History] Vitamin A Acetate [Vitamin A] 20,000 unit SL DAILY 02/03/20 [History] Potassium Chloride ER [K-Dur 20] 20 meq PO DAILY 06/24/20 [History] Ferrous Sulfate [Iron] 325 mg PO DAILY 01/26/21 [History] Midodrine HCl [ProAmatine] 10 mg PO TID PRN 03/15/21 [History] Pantoprazole Sodium [Protonix] 40 mg PO DAILY 03/15/21 [History] Rifaximin [Xifaxan] 550 mg PO BID 03/15/21 [History] Furosemide [Lasix] 20 mg PO BID 07/25/21 [History] Levofloxacin [Levaquin] 750 mg PO DAILY 3 Days #3 tab 07/28/21 [Rx] Montelukast [Singulair] 10 mg PO DAILY #90 tab 07/28/21 [Rx] Sodium Chloride Tab 1 gm PO BID 10 Days #20 tab 07/28/21 [Rx] Zinc 50 mg PO DAILY 90 Days #90 tab 07/28/21 [Rx] Follow up Appointment(s)/Referral(s): Dario Underwood MD [Primary Care Provider] - 1-2 days Ambulatory/Diagnostic Orders: Complete Blood Count w/diff [LAB.AMB] Time Frame: 3 Days, Facility: [facility], Location: Laboratory Department Comprehensive Metabolic Panel [LAB.AMB] Time Frame: 3 Days, Facility: [facility], Location: Laboratory Department Magnesium [LAB.AMB] Time Frame: 3 Days, Facility: [facility], Location: Laboratory Department Patient Instructions/Handouts: Cirrhosis (DC), Hyponatremia (DC), Pleural Effusion (DC), Ascites (DC), Type 2 Diabetes in the Older Adult (DC) Discharge Disposition: HOME SELF-CARE
[2021-07-29 07:32] LABS: Glucose,Whole Blood 108 mg/dL (75-99)
[2021-07-29] MEDS: INSULIN PUMP MEAL BOLUS 1 UNIT MISC MISCELLANE SCH (07:43)
[2021-07-29] MEDS: LACTULOSE 20 GM/30 ML CUP PO SCH (07:44)
[2021-07-29] MEDS: POTASSIUM CHLORIDE ER 20 MEQ TAB.ER PO SCH (07:45)
[2021-07-29] MEDS: RIFAXIMIN 550 MG TABLET PO SCH (07:45)
[2021-07-29] MEDS: FERROUS SULFATE 325 MG TAB PO SCH (07:45)
[2021-07-29] MEDS: SODIUM CHLORIDE TAB 1 GM TAB PO SCH (07:45)
[2021-07-29] MEDS: PANTOPRAZOLE 40 MG TABLET PO SCH (07:45)
[2021-07-29] MEDS: MONTELUKAST 10 MG TAB PO SCH (07:45)
[2021-07-29] MEDS: LEVOFLOXACIN 750 MG TAB PO SCH (07:46)
[2021-07-29] MEDS: VITAMIN A 10,000 UNIT (3000 MCG) CAPSULE PO SCH (07:46)
[2021-07-29] MEDS: EZETIMIBE 10 MG TAB PO SCH (07:46)
[2021-07-29] MEDS: IPRATROPIUM-ALBUTEROL 3 ML NEB INHALATION SCH ×2 (08:19→11:41)
[2021-07-29 08:24] VITALS: BP 133/55; TEMP 97.9
[2021-07-29] MEDS ORDERED: FUROSEMIDE 40 MG TAB PO SCH (09:00)
[2021-07-29 10:25] VITALS: RESP 20
[2021-07-29 11:52] VITALS: PULSE 95
--- NOTE | 2021-07-29 12:21 | P.PN ---
Subjective Progress Note Date: 07/29/21 This is a very pleasant 66-year-old female patient was hospitalized for worsening shortness of breath. The patient is known case of liver failure/cirrhosis. 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 The patient has been under the care of the pathologist at the [facility] and she was having significant amount of fluid overload and back in January 2021, the patient underwent a TTIPS procedure to control the fluid balance and the patient has not required any paracentesis since then. The patient has a known case of liver cirrhosis. She has presented in the past our hospital because of a massive upper GI bleed and she is known to have portal hypertension and esophageal varices. The patient came into the hospital because of worsening shortness of breath and fluid overload. She reported increase in swelling in the lower extremities. She also had some abdominal distention worsening shortness of breath. A computed tomography scan of the chest abdomen and pelvis was done. CAT scan showed bilateral pleural effusion and some areas of scattered groundglass infiltrates. No focal consolidation. No evidence of any pulmonary embolism. The liver showed a intrahepatic stents and the gallbladder was not clearly visualized. There was evidence of ascites and there was also evidence of splenomegaly. The patient is currently on IV Lasix 40 mg every 12 hours and she is making adequate amount of urine output. Her white cell count is at 1.57 and the patient has pancytopenia with a hemoglobin of 8.5 and a platelet count of 41 due to hypersplenism and liver cirrhosis. Her sed rate is at 14. Correlation profile is within normal limits. BUN is at 14 with a creatinine of 1.09. Rest of the electrodes are normal. She is diabetic and she has an insulin pump. The blood sugar is elevated at 403 from today. Her LFTs are normal. Her total bilirubin is at 2.8. Total protein was 5.6 with albumin level of 2.6. Troponins are negative for now. COVID-19 testing was negative. Influenza she is awake and alert. No has signs of any hepatitic encephalopathy. No recent bleeding. No excessive drinking. No history of alcoholism. No other complaints otherwise for now. No history of any congestion heart failure. She has been listed at the [facility] for liver chest palpitation. There was an issue with a nodule in her right lung and for that reason a PET scan was ordered and meanwhile she was he activated from the transplant list. I do not see any nodules on the CAT scan of the chest. This could be probably of sick unit by the underlying pleural effusion. The patient is seen today 07/27/2021 in follow-up on the regular medical floor. She did undergo paracentesis by interventional radiology this morning. She is maintaining good O2 saturations up to 100% on 3 L/m per nasal cannula. Blood cultures reveal no growth. White count 9.3. Hemoglobin 8.9. Platelet count 51,000. Sodium 129. Potassium 4.5. Creatinine 1.55. AST 44, ALT 22. She is continued on IV diuretics. The patient is seen today 07/28/2021 in follow-up on the regular medical floor. She is currently sitting up in bed. Awake and alert in no acute distress. Maintaining O2 saturations in the 90s on 2 L/m per nasal cannula. She does desaturate to 86% on room air with a brief walk. White count 6.5. Hemoglobin 7.8. Platelet count 43. Sodium 130. Potassium 3.7. Creatinine 1.65. Glucose 111. She did undergo paracentesis with approximate 3 L removed yesterday. Fluid culture pending. Today's chest x-ray continues show some evidence of mild fluid volume overload. Minimal bilateral effusions. She is continued on Lasix 40 mg IV every 12 hours. Remains on bronchodilators. Antibiotics in the form of Levaquin. The patient is seen today 07/29/2021 in follow-up on the regular medical floor. Currently resting comfortably in bed. Awake and alert in no acute distress. She is cough fine for home oxygen which will be provided prior to discharge. No worsening shortness of breath, cough or congestion. No fever, chills or night sweats.. No fluid cultures pending. Blood cultures revealed no growth. White count 5.0. Hemoglobin 8.4. Late limits 51,000. Sodium 131. Creatinine 1.65. Glucose 106. She remains on DuoNeb inhalations, oral diuretics, oral antibiotics. Objective - Vital Signs Vital signs: Vital Signs Temp 97.9 F 07/29/21 08:00 Pulse 95 07/29/21 11:52 Resp 20 07/29/21 08:00 BP 133/55 07/29/21 08:00 Pulse Ox 99 07/29/21 08:19 Intake & Output 07/28/21 07/29/21 07/29/21 18:59 06:59 18:59 Intake Total 360 358 Balance 360 358 Intake: Oral 360 358 Other: Voiding Method Toilet Toilet # Voids 1 1 - Exam Gen. appearance pleasant 66-year-old female patient, resting comfortably in bed, in no acute distress on 2 L nasal cannula Head exam was generally normal. There was no scleral icterus or corneal arcus. Mucous membranes were moist. Neck was supple and without jugular venous distension, thyromegaly, or carotid bruits. Carotids were easily palpable bilaterally. There was no adenopathy. Lungs sounds are diminished in lung bases and there is also dullness to percussion bilaterally consistent with underlying pleural effusion. Heart sounds are regular and there is accentuation of the second heart sound, probably related to underlying pulmonary hypertension. Faint murmur systolic ejection murmur grade 2/6 is also appreciated. Abdomen is distended and the patient has underlying ascites. His fluid wave and shifting dullness. There is also some splenomegaly. No direct tenderness. No rebound tensile guarding. Patient has a small umbilical hernia. Extremities reveal trace edema and there is no cyanosis or clubbing. Neurologically, awake and alert there is no focal neurological deficits. Examination of the skin revealed no evidence of significant rashes, suspicious appearing nevi or other concerning lesions. - Labs CBC & Chem 7: 07/29/21 04:29 07/29/21 04:29 Labs: Abnormal Lab Results - Last 24 Hours (Table) 07/28/21 07/28/21 07/28/21 Range/Units 17:19 18:57 21:24 RBC 2.53 L (3.80-5.40) m/uL Hgb 8.4 L (11.4-16.0) gm/dL Hct 25.4 L (34.0-46.0) % MCV 100.7 H (80.0-100.0) fL RDW 16.0 H (11.5-15.5) % Plt Count 45 L (150-450) k/uL Lymphocytes # 0.4 L (1.0-4.8) k/uL Sodium (137-145) mmol/L BUN (7-17) mg/dL Creatinine (0.52-1.04) mg/dL Glucose (74-99) mg/dL POC Glucose (mg/dL) 204 H 161 H (75-99) mg/dL Calcium (8.4-10.2) mg/dL AST (14-36) U/L Total Protein (6.3-8.2) g/dL Albumin (3.5-5.0) g/dL 07/29/21 07/29/21 07/29/21 Range/Units 04:29 04:29 07:30 RBC 2.55 L (3.80-5.40) m/uL Hgb 8.4 L (11.4-16.0) gm/dL Hct 25.3 L (34.0-46.0) % MCV (80.0-100.0) fL RDW 15.9 H (11.5-15.5) % Plt Count 51 L (150-450) k/uL Lymphocytes # 0.5 L (1.0-4.8) k/uL Sodium 131 L (137-145) mmol/L BUN 23 H (7-17) mg/dL Creatinine 1.65 H (0.52-1.04) mg/dL Glucose 106 H (74-99) mg/dL POC Glucose (mg/dL) 108 H (75-99) mg/dL Calcium 7.9 L (8.4-10.2) mg/dL AST 53 H (14-36) U/L Total Protein 4.9 L (6.3-8.2) g/dL Albumin 2.3 L (3.5-5.0) g/dL Microbiology - Last 24 Hours (Table) 07/25/21 22:32 Blood Culture - Preliminary Blood No Growth after 72 hours 07/25/21 22:14 Blood Culture - Preliminary Blood No Growth after 72 hours 07/27/21 10:44 Gram Stain - Preliminary Ascites Fluid Body Fluid Culture - Preliminary Assessment and Plan Assessment: 1 Acute hypoxemic respiratory failure secondary to large bilateral pleural effusion causing atelectatic changes in lung bases bilaterally. Patient is currently improved on oxygen at 2 L per minute nasal cannula. Usually she is not oxygen dependent at home. She is currently on diuretics. 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 Status post paracentesis on 07/27/2021 with approximate 3 L removed. 2 liver cirrhosis with large ascites. 3 previous history of TIPS regarding liver cirrhosis and recurrent ascites 4 pancytopenia secondary to liver failure/hypersplenism 5 portal hypertension. History of GI bleed, inactive in stable for now 6 questionable lung mass for which a PET scan was ordered for this patient and the patient was deactivated from the transplantation list. 7 history of psoriatic arthritis 8 history of diabetes mellitus currently on insulin pump. Blood sugar seems to be under poor control monitor the blood sugar from today is quite elevated. 9 fibromyalgia 10 coronary artery disease without previous history of any underlying cardiomyopathy with CHF. 11 hyperbilirubinemia secondary to liver cirrhosis Plan: The patient was seen and evaluated by Dr. Louie Cleared for discharge from the pulmonary standpoint Does qualify for home oxygen Follow-up in our office in 1-2 weeks' I, the cosigning physician, performed a history & physical examination of the patient. Lungs sounds diminished in the posterior basses. Maintaining good O2 saturations in the 90s on 2L min per nasal canula. I discussed the assessment and plan of care with my nurse practitioner, Bella Venegas. I attest to the above note as dictated by her.
[2021-07-31] MEDS ORDERED: ERGOCALCIFEROL 1,250 MCG (50,000 IU) CAPSULE PO SCH (09:00)
[2021-08-01 09:50] LABS: Amylase, Fluid Source Ascites; Glucose, BF Source Ascites; Glucose, Body Fluid 189 mg/dL; LDH, Body Fluid Source Ascites; Total Protein, Body Fluid 1720 mg/dL
== END 2021-07-29 12:52 | disposition home or self-care (01) | DRG 432 ==
LOC: EC 17:25 → INTOOBSV 21:54 → 4SSUR 21:54 → 6NMEDSUR 22:27 → OBSVTOIN 07-27 14:50
PROVIDERS: ADMIT Family Medicine; ATTEND Family Medicine
PROC: 0W9G30Z Drainage of Peritoneal Cavity with Drainage Device, Percutaneous Approach (ICD-10-PCS; principal; 2021-07-27)
DX: K74.60 Unspecified cirrhosis of liver (principal); J96.01 Acute respiratory failure with hypoxia; D61.818 Other pancytopenia; E87.1 Hypo-osmolality and hyponatremia; I85.10 Secondary esophageal varices without bleeding; J44.1 Chronic obstructive pulmonary disease with (acute) exacerbation; K76.6 Portal hypertension; R18.8 Other ascites; I42.9 Cardiomyopathy, unspecified; J90 Pleural effusion, not elsewhere classified; K72.90 Hepatic failure, unspecified without coma; Z20.822 Contact with and (suspected) exposure to COVID-19; I25.10 Atherosclerotic heart disease of native coronary artery without angina pectoris; I11.0 Hypertensive heart disease with heart failure; K76.0 Fatty (change of) liver, not elsewhere classified; D73.1 Hypersplenism; E11.65 Type 2 diabetes mellitus with hyperglycemia; I50.9 Heart failure, unspecified; L40.50 Arthropathic psoriasis, unspecified; E66.9 Obesity, unspecified; E78.5 Hyperlipidemia, unspecified; E87.70 Fluid overload, unspecified; D64.9 Anemia, unspecified; D69.6 Thrombocytopenia, unspecified; R91.8 Other nonspecific abnormal finding of lung field; R53.81 Other malaise; K21.9 Gastro-esophageal reflux disease without esophagitis; M79.7 Fibromyalgia; Z76.82 Awaiting organ transplant status; Z79.899 Other long term (current) drug therapy; Z85.41 Personal history of malignant neoplasm of cervix uteri; Z87.891 Personal history of nicotine dependence; Z90.49 Acquired absence of other specified parts of digestive tract; Z90.710 Acquired absence of both cervix and uterus; Z95.1 Presence of aortocoronary bypass graft; Z96.41 Presence of insulin pump (external) (internal); Z79.4 Long term (current) use of insulin; Z88.1 Allergy status to other antibiotic agents; Z91.013 Allergy to seafood; Z88.0 Allergy status to penicillin; Z88.2 Allergy status to sulfonamides; Z91.030 Bee allergy status; Z87.19 Personal history of other diseases of the digestive system
CPT/HCPCS: 36415; 49083; 71045; 71046; 71260; 74177; 76705; 80048; 80053; 82105; 82150; 82945; 83036; 83605; 83615; 83735; 83880; 84145; 84157; 84484; 85025; 85610; 85652; 85730; 87040; 87070; 87075; 87205; 87502; 87635; 88108; 88305; 89050; 93005; 94640; 94760; 99285

== ENCOUNTER → 2021-08-02 | Outpatient (CLI) | payer MEDICARE ==
[2021-08-02 13:29] LABS: Basophils % (A) 0 %; Eosinophils # (A) 0.2 k/uL (0-0.7); Eosinophils % (A) 4 %; HCT 29.4 % (34.0-46.0); HGB 10.3 gm/dL (11.4-16.0); Lymphocytes # (A) 0.5 k/uL (1.0-4.8); Lymphocytes % (A) 9 %; MCH 33.8 pg (25.0-35.0); MCHC 34.8 g/dL (31.0-37.0); MCV 96.9 fL (80.0-100.0); Monocytes # (A) 0.4 k/uL (0-1.0); Monocytes % (A) 7 %; Neutrophils # (A) 4.3 k/uL (1.3-7.7); Neutrophils % (A) 77 %; Poikilocytosis Slight; RBC 3.04 m/uL (3.80-5.40); RDW 15.3 % (11.5-15.5); WBC 5.6 k/uL (3.8-10.6)
[2021-08-02 13:38] LABS: Platelet Count 63 k/uL (150-450)
[2021-08-02 13:46] LABS: INR 1.3 (<1.2); Prothrombin Time 13.4 sec (9.0-12.0)
--- NOTE | 2021-08-02 13:46 | XR ---
EXAMINATION TYPE: XR chest 2V DATE OF EXAM: 08/02/2021 COMPARISON: Chest x-ray July 28, 2021. Chest CT July 26, 2021 HISTORY: Pleural effusion. TECHNIQUE: Frontal and lateral views of the chest are obtained. FINDINGS: There is mild cardiomegaly with persistent small tiny left greater than right pleural effu sions. The osseous structures are intact. Partial visualization of cholecystectomy clips and metall ic internal biliary stent grafts. IMPRESSION: Mild cardiomegaly with small to tiny left greater right pleural effusions. They may be r elated to underlying ascites from liver disease.
[2021-08-02 13:58] LABS: ALT 26 U/L (4-34); AST 53 U/L (14-36); African American GFR (CKD) 46 (>60 ml/min/1.73 sqM); Albumin 2.6 g/dL (3.5-5.0); Albumin/Globulin Ratio 0.9; Alkaline Phosphatase 114 U/L (38-126); Anion Gap 3 mmol/L; Blood Urea Nitrogen 18 mg/dL (7-17); Calcium 8.3 mg/dL (8.4-10.2); Carbon Dioxide 29 mmol/L (22-30); Chloride 106 mmol/L (98-107); Globulin 2.9 g/dL; Glucose 106 mg/dL (74-99); Non-African American GFR(CKD) 40 (>60 ml/min/1.73 sqM); Potassium 3.8 mmol/L (3.5-5.1); Sodium 138 mmol/L (137-145); Total Bilirubin 1.7 mg/dL (0.2-1.3); Total Protein 5.5 g/dL (6.3-8.2)
== END | disposition home or self-care (01) ==
LOC: LABWHC1 12:34
PROVIDERS: ATTEND Nurse Practitioner
DX: J90 Pleural effusion, not elsewhere classified (principal); R18.8 Other ascites
CPT/HCPCS: 36415; 71046; 80053; 85025; 85610

== ENCOUNTER → 2021-12-26 | Outpatient (CLI) | payer MEDICARE ==
--- NOTE | 2021-12-26 12:15 | XR ---
EXAMINATION TYPE: XR Hip Bilateral and AP pelvis DATE OF EXAM: 12/26/2021 COMPARISON: CT 07/26/2021 HISTORY: Osteoarthritis TECHNIQUE: A single AP view of the pelvis is obtained. Two views of the bilateral hips are obtained. FINDINGS: There is no acute fracture/dislocation evident in the pelvis. The sacroiliac joints appea r symmetric and unremarkable. The overlying soft tissue appears unremarkable. Osteoarthritic changes present within the right hip with marginal spurring, concentric joint space lo ss is present bilaterally, there is marginal spurring bilaterally. Patient is status post posterior fusion L5-S1, degenerative disc changes and spinal curvature noted i n the lumbar spine, associated laminectomies. There are phleboliths in the pelvis. IMPRESSION: Osteoarthritis within the hips right greater than left is mild. Postop changes in the lum bosacral spine with degenerative disc disease.
== END | disposition home or self-care (01) ==
LOC: RADXRMAIN 09:01
PROVIDERS: ATTEND Family Medicine
DX: M16.0 Bilateral primary osteoarthritis of hip (principal); M51.37 Other intervertebral disc degeneration, lumbosacral region
CPT/HCPCS: 73521

== ENCOUNTER 2022-01-03 14:41 | Inpatient (IN) | payer MEDICARE ==
[2022-01-03 17:50] LABS: Anisocytosis Slight; Basophils % (A) 0 %; Eosinophils # (A) 0.1 k/uL (0-0.7); Eosinophils % (A) 3 %; HCT 26.3 % (34.0-46.0); HGB 9.2 gm/dL (11.4-16.0); Lymphocytes # (A) 0.5 k/uL (1.0-4.8); Lymphocytes % (A) 12 %; MCH 34.4 pg (25.0-35.0); MCHC 35.2 g/dL (31.0-37.0); MCV 97.7 fL (80.0-100.0); Macrocytosis Slight; Mean Platelet Volume 10.7; Monocytes # (A) 0.3 k/uL (0-1.0); Monocytes % (A) 6 %; Neutrophils # (A) 3.3 k/uL (1.3-7.7); Neutrophils % (A) 77 %; Poikilocytosis Slight; RBC 2.69 m/uL (3.80-5.40); RDW 17.4 % (11.5-15.5); WBC 4.3 k/uL (3.8-10.6)
[2022-01-03 18:00] LABS: Calcium 8.8 mg/dL (8.4-10.2); Potassium 4.3 mmol/L (3.5-5.1); Total Bilirubin 4.3 mg/dL (0.2-1.3)
[2022-01-03] MEDS ORDERED: SODIUM CHLORIDE 0.9% 1,000 ML IV ONE (18:16)
--- NOTE | 2022-01-03 18:17 | ED ---
General Adult HPI - General Chief complaint: Recheck/Abnormal Lab/Rx Stated complaint: Sugar 550-600 Time Seen by Provider: 01/03/22 18:11 Source: patient, family, RN notes reviewed Mode of arrival: wheelchair Limitations: no limitations - History of Present Illness Initial comments: She presents to the ER after registering blood sugars at home in the 550-600 range. Patient is insulin-dependent type 2 diabetic. Patient presented with elevated blood sugars. The patient's insulin pump was essentially out of insulin for the past 3 or 4 days. The patient's blood sugar has been steadily climbing. She is complaining of thirst but no other symptomology. Patient is urinating more frequently than usual when asked but has no irritative voiding. No headache, no fever or chills, no changes in vision or hearing, no sore throat or difficulty with speech, no neck pain, no chest pain or shortness of breath, no abdominal pain, no nausea or vomiting, no changes in urination or bowel movements, no numbness or tingling, no extremity pain, no skin rashes or lesions. - Related Data Home Medications Medication Instructions Recorded Confirmed Ezetimibe [Zetia] 10 mg PO DAILY 09/04/16 07/25/21 INSULIN LISPRO (For Pump) [humaLOG 0.01 units SQ-PUMP CONTINUOUS 09/04/16 07/25/21 (For Pump)] Sertraline [Zoloft] 25 mg PO DAILY 01/12/17 07/25/21 EPINEPHrine [Epipen 2-Sanchez] 0.3 mg IM ONCE PRN 11/23/17 07/25/21 Lactulose 20 gm PO DAILY 08/22/18 07/25/21 Ergocalciferol (Vitamin D2) 50,000 unit PO JOE 09/17/18 07/25/21 [Vitamin D2] Atorvastatin [Lipitor] 40 mg PO HS 02/03/20 07/25/21 Vitamin A Acetate [Vitamin A] 20,000 unit SL DAILY 02/03/20 07/25/21 Potassium Chloride ER [K-Dur 20] 20 meq PO DAILY 06/24/20 07/25/21 Ferrous Sulfate [Iron] 325 mg PO DAILY 01/26/21 07/25/21 Midodrine HCl [ProAmatine] 10 mg PO TID PRN 03/15/21 07/25/21 Pantoprazole Sodium [Protonix] 40 mg PO DAILY 03/15/21 07/25/21 Rifaximin [Xifaxan] 550 mg PO BID 03/15/21 07/25/21 Furosemide [Lasix] 20 mg PO BID 07/25/21 07/25/21 Previous Rx's Medication Instructions Recorded Levofloxacin [Levaquin] 750 mg PO DAILY 3 Days #3 tab 07/28/21 Montelukast [Singulair] 10 mg PO DAILY #90 tab 07/28/21 Sodium Chloride Tab 1 gm PO BID 10 Days #20 tab 07/28/21 Zinc 50 mg PO DAILY 90 Days #90 tab 07/28/21 Allergies Allergy/AdvReac Type Severity Reaction Status Date / Time doxycycline Allergy Rash/Hives Verified 01/03/22 16:07 iodine Allergy Rash/Hives Verified 01/03/22 16:07 Penicillins Allergy Rash/Hives Verified 01/03/22 16:07 shellfish derived Allergy Rash/Hives Verified 01/03/22 16:07 Sulfa (Sulfonamide Allergy Rash/Hives Verified 01/03/22 16:07 Antibiotics) venom-honey bee Allergy Anaphylaxis Verified 01/03/22 16:07 [bee venom (honey bee)] Review of Systems ROS Statement: Those systems with pertinent positive or pertinent negative responses have been documented in the HPI. ROS Other: All systems not noted in ROS Statement are negative. Past Medical History Past Medical History: Coronary Artery Disease (CAD), Cancer, Chest Pain / Angina, Heart Failure, Diabetes Mellitus, Fibromyalgia, GERD/Reflux, Hyperlipidemia, Liver Disease, Renal Disease, Skin Disorder Additional Past Medical History / Comment(s): Non-ETOH cirrhosis, ascities, esophageal varices, pancytopenia, thrombycytopenia, anemia, IDDM with insulin pump, several nodules both lungs being monitored, urinary leakage at times and pt states she has diarrhea much of the time, psoriasis, cervical cancer, pt states 2 blockages in back of heart, awaiting liver transplant at [facility] in [place]. hx migraines, 2 seizures post back surgery, hiatal hernia, patient is undergoing work up for a possible TIPS at [facility] History of Any Multi-Drug Resistant Organisms: None Reported Past Surgical History: Back Surgery, Breast Surgery, Cholecystectomy, Heart Catheterization, Hysterectomy, Orthopedic Surgery, Tonsillectomy, Tubal Ligation Additional Past Surgical History / Comment(s): multi large volume Paracentesis, EGD with banded esophageal varices, colonoscopies, bilateral rotator cuff repairs, bilateral breast bx-benign, back surgery in 2015, TIPS Past Anesthesia/Blood Transfusion Reactions: Previous Problems w/ Anesthesia, Family History of Problems w/ Anesthesia, Motion Sickness Additional Past Anesthesia/Blood Transfusion Reaction / Comment(s): difficulty breathing when coming out of anesthesia; difficulty waking up. Hypotension with general anesthesia. blood transfusions without reaction. sister- slow coming out and PONV Past Psychological History: No Psychological Hx Reported Smoking Status: Former smoker Past Alcohol Use History: None Reported Past Drug Use History: None Reported - Past Family History Mother Family Medical History: Cancer Additional Family Medical History / Comment(s): skin cancer. Father Family Medical History: Coronary Artery Disease (CAD) Additional Family Medical History / Comment(s): cabg/pacemaker Brother(s) Family Medical History: Cancer Sister(s) Family Medical History: Cancer, Deep Vein Thrombosis (DVT) Additional Family Medical History / Comment(s): Breast CA. General Exam Limitations: no limitations General appearance: alert, in no apparent distress Head exam: Present: atraumatic, normocephalic, normal inspection Eye exam: Present: normal appearance, PERRL, EOMI. Absent: scleral icterus, conjunctival injection, periorbital swelling ENT exam: Present: normal exam, mucous membranes moist Neck exam: Present: normal inspection. Absent: tenderness, meningismus, lymphad enopathy Respiratory exam: Present: normal lung sounds bilaterally. Absent: respiratory distress, wheezes, rales, rhonchi, stridor Cardiovascular Exam: Present: regular rate, normal rhythm, normal heart sounds. Absent: systolic murmur, diastolic murmur, rubs, gallop, clicks GI/Abdominal exam: Present: soft, normal bowel sounds. Absent: distended, tenderness, guarding, rebound, rigid Extremities exam: Present: normal inspection, full ROM, normal capillary refill. Absent: tenderness, pedal edema, joint swelling, calf tenderness Back exam: Present: normal inspection Neurological exam: Present: alert, oriented X3, CN II-XII intact Psychiatric exam: Present: normal affect, normal mood Skin exam: Present: warm, dry, intact, normal color. Absent: rash Course Vital Signs 01/03/22 01/03/22 16:01 21:52 Temperature 98.4 F Pulse Rate 68 71 Respiratory 18 18 Rate Blood Pressure 99/36 103/34 O2 Sat by Pulse 97 97 Oximetry - Reevaluation(s) Reevaluation #1: 01/03/22 20:25 Medical record is reviewed Symptoms are improved here in the emergency department Patient is informed of results and questions answered Patient in no distress Reevaluation #2: 01/03/22 20:48 Medical record is reviewed Patient reexamined, no chest pain, evidence of urinary tract infection, antibiotic ordered after discussion with ED attending physician. Patient still hyperglycemic. We'll discuss with cardiology and admit. Repeat EKG ordered. Aspirin given, heparin protocol started Patient is informed of results and questions answered Patient in no distress EKG Findings - EKG Comments: EKG Findings:: EKG done at 2018 and regular the ED attending physician reveals sinus rhythm with occasional disease. Normal axis, normal intervals, baseline artifact, no evidence of acute ST or T-wave changes. When compared to previous study Patient may have flipped T waves in lateral precordial leads which is difficult to ascertain due to artifact. Due to the artifact the EKG was r epeated at 2058. Sinus rhythm with rate of 67, nonspecific T-wave and a rally. No significant acute findings. Normal axis. Normal intervals. Medical Decision Making - Medical Decision Making The case was discussed in detail with ED attending physician. Presentation, findings, treatment plan discussed in detail. Patient presented with hyperglycemia and uncontrolled diabetes mellitus. Patient's troponin came back at 0.206. EKG showed no acute findings. Patient was given aspirin 324 mg and heparin protocol was initiated. Call has been placed with patient's PCP. Also juliann the candy mixer. Case was discussed with the candy mixer, Dr. Snyder at 2520 - Lab Data Result diagrams: 01/03/22 17:37 01/03/22 17:37 Lab Results 01/03/22 01/03/22 01/03/22 Range/Units 17:37 17:37 19:18 WBC 4.3 (3.8-10.6) k/uL RBC 2.69 L (3.80-5.40) m/uL Hgb 9.2 L (11.4-16.0) gm/dL Hct 26.3 L (34.0-46.0) % MCV 97.7 (80.0-100.0) fL MCH 34.4 (25.0-35.0) pg MCHC 35.2 (31.0-37.0) g/dL RDW 17.4 H (11.5-15.5) % Plt Count 69 L (150-450) k/uL MPV 10.7 Neutrophils % 77 % Lymphocytes % 12 % Monocytes % 6 % Eosinophils % 3 % Basophils % 0 % Neutrophils # 3.3 (1.3-7.7) k/uL Lymphocytes # 0.5 L (1.0-4.8) k/uL Monocytes # 0.3 (0-1.0) k/uL Eosinophils # 0.1 (0-0.7) k/uL Basophils # 0.0 (0-0.2) k/uL Manual Slide Review Performed Poikilocytosis Slight Anisocytosis Slight Macrocytosis Slight Sodium 123 L (137-145) mmol/L Potassium 4.3 (3.5-5.1) mmol/L Chloride 94 L (98-107) mmol/L Carbon Dioxide 22 (22-30) mmol/L Anion Gap 7 mmol/L BUN 22 H (7-17) mg/dL Creatinine 1.77 H (0.52-1.04) mg/dL Est GFR (CKD-EPI)AfAm 34 (>60 ml/min/1.73 sqM) Est GFR (CKD-EPI)NonAf 29 (>60 ml/min/1.73 sqM) Glucose 560 H* (74-99) mg/dL POC Glucose (mg/dL) (75-99) mg/dL POC Glu [employer] Assembly Supervisor ID Calcium 8.8 (8.4-10.2) mg/dL Total Bilirubin 4.3 H (0.2-1.3) mg/dL AST 35 (14-36) U/L ALT 22 (4-34) U/L Alkaline Phosphatase 128 H (38-126) U/L Troponin I (0.000-0.034) ng/mL Total Protein 6.0 L (6.3-8.2) g/dL Albumin 3.0 L (3.5-5.0) g/dL Urine Color Urine Appearance (Clear) Urine pH (5.0-8.0) Ur Specific [place] (1.001-1.035) Urine Protein (Negative) Urine Glucose (UA) (Negative) Urine Ketones (Negative) Urine Blood (Negative) Urine Nitrite (Negative) Urine Bilirubin (Negative) Urine Urobilinogen (<2.0) mg/dL Ur Leukocyte Esterase (Negative) Urine RBC (0-5) /hpf Urine WBC (0-5) /hpf Urine WBC Clumps (None) /hpf Ur Squamous Epith Cells (0-4) /hpf Ur Transition Epith Cell (0-1) /hpf Acetone, Qual Negative (Negative) 01/03/22 01/03/22 01/03/22 Range/Units 19:18 19:28 20:00 WBC (3.8-10.6) k/uL RBC (3.80-5.40) m/uL Hgb (11.4-16.0) gm/dL Hct (34.0-46.0) % MCV (80.0-100.0) fL MCH (25.0-35.0) pg MCHC (31.0-37.0) g/dL RDW (11.5-15.5) % Plt Count (150-450) k/uL MPV Neutrophils % % Lymphocytes % % Monocytes % % Eosinophils % % Basophils % % Neutrophils # (1.3-7.7) k/uL Lymphocytes # (1.0-4.8) k/uL Monocytes # (0-1.0) k/uL Eosinophils # (0-0.7) k/uL Basophils # (0-0.2) k/uL Manual Slide Review Poikilocytosis Anisocytosis Macrocytosis Sodium (137-145) mmol/L Potassium (3.5-5.1) mmol/L Chloride (98-107) mmol/L Carbon Dioxide (22-30) mmol/L Anion Gap mmol/L BUN (7-17) mg/dL Creatinine (0.52-1.04) mg/dL Est GFR (CKD-EPI)AfAm (>60 ml/min/1.73 sqM) Est GFR (CKD-EPI)NonAf (>60 ml/min/1.73 sqM) Glucose (74-99) mg/dL POC Glucose (mg/dL) 530 H (75-99) mg/dL POC Glu [employer] Supervisor ID GrambauYisele Calcium (8.4-10.2) mg/dL Total Bilirubin (0.2-1.3) mg/dL AST (14-36) U/L ALT (4-34) U/L Alkaline Phosphatase (38-126) U/L Troponin I 0.206 H* (0.000-0.034) ng/mL Total Protein (6.3-8.2) g/dL Albumin (3.5-5.0) g/dL Urine Color Yellow Urine Appearance Cloudy H (Clear) Urine pH 5.5 (5.0-8.0) Ur Specific [place] 1.010 (1.001-1.035) Urine Protein Negative (Negative) Urine Glucose (UA) 4+ H (Negative) Urine Ketones Negative (Negative) Urine Blood Negative (Negative) Urine Nitrite Negative (Negative) Urine Bilirubin Negative (Negative) Urine Urobilinogen <2.0 (<2.0) mg/dL Ur Leukocyte Esterase Moderate H (Negative) Urine RBC 2 (0-5) /hpf Urine WBC 64 H (0-5) /hpf Urine WBC Clumps Occasional H (None) /hpf Ur Squamous Epith Cells 9 H (0-4) /hpf Ur Transition Epith Cell <1 (0-1) /hpf Acetone, Qual (Negative) 01/03/22 Range/Units 21:56 WBC (3.8-10.6) k/uL RBC (3.80-5.40) m/uL Hgb (11.4-16.0) gm/dL Hct (34.0-46.0) % MCV (80.0-100.0) fL MCH (25.0-35.0) pg MCHC (31.0-37.0) g/dL RDW (11.5-15.5) % Plt Count (150-450) k/uL MPV Neutrophils % % Lymphocytes % % Monocytes % % Eosinophils % % Basophils % % Neutrophils # (1.3-7.7) k/uL Lymphocytes # (1.0-4.8) k/uL Monocytes # (0-1.0) k/uL Eosinophils # (0-0.7) k/uL Basophils # (0-0.2) k/uL Manual Slide Review Poikilocytosis Anisocytosis Macrocytosis Sodium (137-145) mmol/L Potassium (3.5-5.1) mmol/L Chloride (98-107) mmol/L Carbon Dioxide (22-30) mmol/L Anion Gap mmol/L BUN (7-17) mg/dL Creatinine (0.52-1.04) mg/dL Est GFR (CKD-EPI)AfAm (>60 ml/min/1.73 sqM) Est GFR (CKD-EPI)NonAf (>60 ml/min/1.73 sqM) Glucose (74-99) mg/dL POC Glucose (mg/dL) 413 H (75-99) mg/dL POC Glu [employer] Assembly Supervisor ID Chelsie Velazco Calcium (8.4-10.2) mg/dL Total Bilirubin (0.2-1.3) mg/dL AST (14-36) U/L ALT (4-34) U/L Alkaline Phosphatase (38-126) U/L Troponin I (0.000-0.034) ng/mL Total Protein (6.3-8.2) g/dL Albumin (3.5-5.0) g/dL Urine Color Urine Appearance (Clear) Urine pH (5.0-8.0) Ur Specific [place] (1.001-1.035) Urine Protein (Negative) Urine Glucose (UA) (Negative) Urine Ketones (Negative) Urine Blood (Negative) Urine Nitrite (Negative) Urine Bilirubin (Negative) Urine Urobilinogen (<2.0) mg/dL Ur Leukocyte Esterase (Negative) Urine RBC (0-5) /hpf Urine WBC (0-5) /hpf Urine WBC Clumps (None) /hpf Ur Squamous Epith Cells (0-4) /hpf Ur Transition Epith Cell (0-1) /hpf Acetone, Qual (Negative) Disposition Clinical Impression: Non-ST elevation HI (NSTEMI), Urinary tract infection, Uncontrolled type 2 diabetes mellitus Disposition: ADMITTED IP TO THIS HOSP Condition: Stable Is patient prescribed a controlled substance at d/c from ED?: No Referrals: Dario Underwood MD [Primary Care Provider] - 1-2 days Time of Disposition: 20:50
[2022-01-03 18:52] LABS: Platelet Count 69 k/uL (150-450)
--- NOTE | 2022-01-03 19:10 | XR ---
EXAMINATION TYPE: XR chest 1V DATE OF EXAM: 01/03/2022 COMPARISON: 08/02/2021 HISTORY: Dyspnea/hyperglycemia. TECHNIQUE: Single frontal view of the chest is obtained. FINDINGS: There is mild interstitial prominence. No focal air space opacity, pleural effusion, or pn eumothorax seen. The cardiac silhouette size is borderline enlarged. The osseous structures are in tact. IMPRESSION: Mild interstitial edema versus atelectasis.
[2022-01-03] MEDS ORDERED: INSULIN ASPART (NovoLOG) 100 UNIT/ML VIAL SQ ONE (19:43)
[2022-01-03 20:02] LABS: Glucose,Whole Blood 530 mg/dL (75-99)
[2022-01-03 20:12] LABS: Appearance,Urine Cloudy (Clear); Bilirubin,Urine Negative (Negative); Blood,Urine Negative (Negative); Color,Urine Yellow; Glucose,Urine (UA) 4+ (Negative); Ketones,Urine Negative (Negative); Leukocyte Esterase,Urine Moderate (Negative); Nitrite,Urine Negative (Negative); PH, Urine 5.5 (5.0-8.0); Protein,Urine Negative (Negative); RBC,Urine 2 /hpf (0-5); Squamous Epithelial Cell,Urine 9 /hpf (0-4); Transitional Epi Cells,Urine <1 /hpf (0-1); Urobilinogen,Urine <2.0 mg/dL (<2.0); WBC,Urine 64 /hpf (0-5)
[2022-01-03] MEDS ORDERED: ASPIRIN 81 MG PO STA (20:26)
[2022-01-03] MEDS ORDERED: HEPARIN SODIUM 1,000 UN/ML (10ML VL) IV ONE (20:39)
[2022-01-03] MEDS ORDERED: HEPARIN SODIUM 1,000 UN/ML (10ML VL) IV PRN (20:39)
[2022-01-03] MEDS ORDERED: HEPARIN SOD,PORK IN 0.45% NACL 25,000 UNIT in 0.45% NACL 1 250ML.BAG IV SCH (20:45)
[2022-01-03 21:57] LABS: Glucose,Whole Blood 413 mg/dL (75-99)
[2022-01-03] MEDS ORDERED: NITROGLYCERIN SL TABS 0.4 MG TAB SUBLINGUAL PRN (22:00)
[2022-01-03 22:27] LABS: INR 1.4 (<1.2); Partial Thromboplastin Time 28.3 sec (22.0-30.0); Prothrombin Time 14.5 sec (9.0-12.0)
[2022-01-03 23:49] LABS: Glucose,Whole Blood 352 mg/dL (75-99)
[2022-01-04] MEDS: SODIUM CHLORIDE 0.9% 1,000 ML IV SCH ×3 (00:17→21:56)
[2022-01-04 02:30] LABS: Glucose,Whole Blood 326 mg/dL (75-99)
[2022-01-04 04:45] LABS: Anisocytosis Slight; Basophils % (A) 0 %; Eosinophils # (A) 0.1 k/uL (0-0.7); Eosinophils % (A) 5 %; HCT 22.5 % (34.0-46.0); HGB 7.8 gm/dL (11.4-16.0); Lymphocytes # (A) 0.5 k/uL (1.0-4.8); Lymphocytes % (A) 20 %; MCH 34.6 pg (25.0-35.0); MCHC 34.7 g/dL (31.0-37.0); MCV 99.5 fL (80.0-100.0); Macrocytosis Slight; Mean Platelet Volume 9.8; Monocytes # (A) 0.1 k/uL (0-1.0); Monocytes % (A) 5 %; Neutrophils # (A) 1.9 k/uL (1.3-7.7); Neutrophils % (A) 68 %; Poikilocytosis Slight; RBC 2.26 m/uL (3.80-5.40); RDW 17.9 % (11.5-15.5); WBC 2.8 k/uL (3.8-10.6)
[2022-01-04 04:49] LABS: Platelet Count 52 k/uL (150-450)
[2022-01-04 05:10] LABS: INR 1.5 (<1.2)
[2022-01-04 05:14] LABS: Partial Thromboplastin Time >200.0 sec (22.0-30.0)
[2022-01-04 08:10] LABS: Glucose,Whole Blood 303 mg/dL (75-99)
[2022-01-04 08:59] LABS: Chol/HDL Ratio 2.01 Ratio; LDL Cholesterol,Calculated 13.6 mg/dL (0.0-131.0); VLDL Calculation 15.86 mg/dL (5.00-40.00)
[2022-01-04] MEDS ORDERED: ASPIRIN 325 MG TAB PO SCH (09:00)
[2022-01-04] MEDS: ASPIRIN 81 MG PO SCH (09:18)
[2022-01-04] MEDS: INSULIN ASPART (NovoLOG) 100 UNIT/ML VIAL SQ SCH ×4 (09:18→21:56)
[2022-01-04] MEDS: MIDODRINE 5 MG TAB PO SCH ×2 (09:18→20:00)
[2022-01-04] MEDS: LACTULOSE 20 GM/30 ML CUP PO SCH (09:19)
[2022-01-04] MEDS: SERTRALINE 25 MG TAB PO SCH (09:19)
[2022-01-04] MEDS: PANTOPRAZOLE 40 MG TABLET PO SCH (09:19)
[2022-01-04] MEDS: EZETIMIBE 10 MG TAB PO SCH (09:19)
[2022-01-04] MEDS: CHOLECALCIFEROL 125 MCG (5000 IU) TABLET PO SCH (09:19)
[2022-01-04] MEDS: POTASSIUM CHLORIDE ER 20 MEQ TAB.ER PO SCH (09:19)
[2022-01-04] MEDS: ZINC SULFATE 220 MG CAP PO SCH (09:19)
[2022-01-04] MEDS: METOPROLOL TARTRATE 25 MG TAB PO SCH ×2 (09:20→21:56)
[2022-01-04] MEDS: FUROSEMIDE 20 MG TAB PO SCH ×2 (09:25→20:00)
--- NOTE | 2022-01-04 11:34 | P.CRDCN ---
History of Present Illness History of present illness: HISTORY OF PRESENTING ILLNESS This is a pleasant 66-year-old female past medical history significant for mild to moderate coronary artery disease, alcoholic liver cirrhosis, recurre nt ascites, esophageal varices, pancytopenia, diabetes mellitus, dyslipidemia, former tobacco use, and paroxysmal atrial fibrillation not on [facility] anticoagulation secondary to liver disease. She follows in the office with Dr. Orona. She follows with a continuing education specialist at [facility]. She is also being worked up for a liver transplant at [facility]. We have been asked to see in consultation for elevated troponin. She presented to the hospital with symptoms of hyperglycemia. She states on 12/31/21 Her insulin pump turned off. She states since then she started noticing her glucose machine read "high". She had symptoms of lightheadedness, polyuria and polydypsia. She came to the ER for further evaluation. She denies any chest pain, shortness of breath, syncope, symptoms of orthopnea or PND. DIAGNOSTICS EKG reveals sinus rhythm, heart rate 67, no significant ST-T wave abnormalities suggest ischemia, poor R wave progression. Repeat EKG revealed sinus rhythm with a PVC, heart rate 65, no significant ST-T wave abnormalities. Prior EKG was similar findings. Telemetry tracings indicate sinus mechanism, no arrhythmia noted Chest xray mild interstitial edema versus atelectasis, no acute heart failure noted. Laboratory reviewed, troponin 0.2, 0.17, 0.15, WBC 2.8, hemoglobin 7.8, platelets 52, sodium 123, potassium 4.3, BUN 22, serum creatinine 1.7 Current cardiac medications include atorvastatin 40 mg nightly, potassium chloride, Midodrine , Lasix 20 mg twice a day, Zetia 10 mg daily Records from [facility]: 2018 cardiac catheterization performed at [facility], left main 0% stenosis, proximal LAD 40% stenosis, mid LAD 50% stenosis, D1 ostial 71%, proximal circumflex 71%, OM 60%. No PCI or angioplasty was performed. REVIEW OF SYSTEMS At the time of my exam: CONSTITUTIONAL: Denies fever or chills. CARDIOVASCULAR: Denies chest pain, shortness of breath, orthopnea, PND or palpitations. RESPIRATORY: Denies cough. GASTROINTESTINAL: Denies abdominal pain, diarrhea, constipation, nausea or vomiting. MUSCULOSKELETAL: Denies myalgias. NEUROLOGIC: Denies numbness, tingling, headacbe or weakness. ENDOCRINE: Denies fatigue, weight change, polydipsia or polyurina. GENITOURINARY: Denies burning, hematuria or urgency with micturation. HEMATOLOGIC:+history of anemia Denies bleeding. PHYSICAL EXAMINATION Blood pressure 100/41, heart rate 74, afebrile, saturations 94% on room air CONSTITUTIONAL: No apparent distress. HEENT: Head is normocephalic. Pupils are equal, round. Sclerae anicteric. Mucous membranes of the mouth are moist. No JVD. No carotid bruit. CHEST EXAMINATION: Lungs are clear to auscultation bilaterally. No chest wall tenderness is noted on palpation or with deep breathing. HEART EXAMINATION: Regular rate and rhythm. S1, S2 heard. Systolic ejection murmur at the base, no gallops or rub. ABDOMEN: Soft, nontender. Positive bowel sounds. EXTREMITIES: 2+ peripheral pulses, no bilateral lower extremity pitting edema. NEUROLOGIC EXAMINATION: Patient is awake, alert and oriented x3. 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 Chronic liver disease Dyslipidemia Esophageal varices Diabetes mellitus, IDDM, with insulin pump Coronary artery disease Chronic kidney disease Former nicotine dependence PLAN We will obtain 2D echocardiogram Stop IV heparin drip Diabetes management per primary Continue home cardiac medications Further recommendations based on clinical course Thank you kindly for this consultation. Nurse Practitioner note has been reviewed, I agree with a documented findings and plan of care. Patient was seen and examined. Past Medical History Past Medical History: Coronary Artery Disease (CAD), Cancer, Chest Pain / Angina, Heart Failure, Diabetes Mellitus, Fibromyalgia, GERD/Reflux, Hyperlipidemia, Liver Disease, Renal Disease, Skin Disorder Additional Past Medical History / Comment(s): Non-ETOH cirrhosis, ascities, esophageal varices, pancytopenia, thrombycytopenia, anemia, IDDM with insulin pump, several nodules both lungs being monitored, urinary leakage at times and pt states she has diarrhea much of the time, psoriasis, cervical cancer, pt states 2 blockages in back of heart, awaiting liver transplant at [facility] in [place]. hx migraines, 2 seizures post back surgery, hiatal hernia, patient is undergoing work up for a possible TIPS at [facility] History of Any Multi-Drug Resistant Organisms: None Reported Past Surgical History: Back Surgery, Breast Surgery, Cholecystectomy, Heart Catheterization, Hysterectomy, Orthopedic Surgery, Tonsillectomy, Tubal Ligation Additional Past Surgical History / Comment(s): multi large volume Paracentesis, EGD with banded esophageal varices, colonoscopies, bilateral rotator cuff repairs, bilateral breast bx-benign, back surgery in 2014, TIPS Past Anesthesia/Blood Transfusion Reactions: Previous Problems w/ Anesthesia, Family History of Problems w/ Anesthesia, Motion Sickness Additional Past Anesthesia/Blood Transfusion Reaction / Comment(s): difficulty breathing when coming out of anesthesia; difficulty waking up. Hypotension with general anesthesia. blood transfusions without reaction. sister- slow coming out and PONV Past Psychological History: No Psychological Hx Reported Smoking Status: Former smoker Past Alcohol Use History: None Reported Past Drug Use History: None Reported - Past Family History Mother Family Medical History: Cancer Additional Family Medical History / Comment(s): skin cancer. Father Family Medical History: Coronary Artery Disease (CAD) Additional Family Medical History / Comment(s): cabg/pacemaker Brother(s) Family Medical History: Cancer Sister(s) Family Medical History: Cancer, Deep Vein Thrombosis (DVT) Additional Family Medical History / Comment(s): Breast CA. Medications and Allergies Home Medications Medication Instructions Recorded Confirmed Type Ezetimibe [Zetia] 10 mg PO DAILY 09/04/16 01/03/22 History INSULIN LISPRO (For Pump) [humaLOG 0.01 units SQ-PUMP CONTINUOUS 09/04/16 01/03/22 History (For Pump)] Sertraline [Zoloft] 25 mg PO DAILY 01/12/17 01/03/22 History Lactulose 20 gm PO DAILY 08/22/18 01/03/22 History Atorvastatin [Lipitor] 40 mg PO HS 02/03/20 01/03/22 History Vitamin A Acetate [Vitamin A] 20,000 unit SL DAILY 02/03/20 01/03/22 History Potassium Chloride ER [K-Dur 20] 20 meq PO DAILY 06/24/20 01/03/22 History Midodrine HCl [ProAmatine] 10 mg PO BID 03/15/21 01/03/22 History Pantoprazole Sodium [Protonix] 40 mg PO DAILY 03/15/21 01/03/22 History Rifaximin [Xifaxan] 550 mg PO BID 03/15/21 01/03/22 History Furosemide [Lasix] 20 mg PO BID 07/25/21 01/03/22 History Zinc 50 mg PO DAILY 90 Days #90 tab 07/28/21 01/03/22 Rx Cholecalciferol [Vitamin D3 (125 125 mcg PO DAILY 01/03/22 01/03/22 History Mcg = 5000 Iu)] Montelukast [Singulair] 10 mg PO HS 01/03/22 01/03/22 History Allergies Allergy/AdvReac Type Severity Reaction Status Date / Time doxycycline Allergy Rash/Hives Verified 01/03/22 22:04 iodine Allergy Rash/Hives Verified 01/03/22 22:04 Penicillins Allergy Rash/Hives Verified 01/03/22 22:04 shellfish derived Allergy Rash/Hives Verified 01/03/22 22:04 Sulfa (Sulfonamide Allergy Rash/Hives Verified 01/03/22 22:04 Antibiotics) venom-honey bee Allergy Anaphylaxis Verified 01/03/22 22:04 [bee venom (honey bee)] Physical Exam Vitals: Vital Signs Temp Pulse Resp BP Pulse Ox 01/04/22 04:42 97.9 F 87 18 119/47 95 01/04/22 00:24 72 18 100/45 98 01/03/22 21:52 71 18 103/34 97 01/03/22 16:01 98.4 F 68 18 99/36 97 Intake and Output 01/03/22 01/04/22 01/04/22 22:59 06:59 14:59 Intake Total 60.41 Balance 60.41 Intake: Intake, IV Titration 60.41 Amount Heparin Sod,Pork in 0.45% 60.41 NaCl 25,000 unit In 0.45 % NaCl 1 250ml.bag @ 12 UNITS/KG/HR 8.219 mls/hr IV .Q24H [facility] Rx#: [id number] Other: Weight 68.492 kg Results 01/04/22 03:35 01/03/22 17:37 Cardiac Enzymes 01/03/22 01/03/22 01/03/22 Range/Units 17:37 19:18 22:24 AST 35 (14-36) U/L Troponin I 0.206 H* 0.173 H* (0.000-0.034) ng/mL 01/04/22 Range/Units 03:35 AST (14-36) U/L Troponin I 0.154 H* (0.000-0.034) ng/mL Coagulation 01/03/22 01/04/22 Range/Units 21:24 03:35 PT 14.5 H 15.0 H (9.0-12.0) sec APTT 28.3 >200.0 H* (22.0-30.0) sec CBC 01/03/22 01/04/22 Range/Units 17:37 03:35 WBC 4.3 2.8 L (3.8-10.6) k/uL RBC 2.69 L 2.26 L (3.80-5.40) m/uL Hgb 9.2 L 7.8 L (11.4-16.0) gm/dL Hct 26.3 L 22.5 L (34.0-46.0) % Plt Count 69 L 52 L (150-450) k/uL Comprehensive Metabolic Panel 01/03/22 Range/Units 17:37 Sodium 123 L (137-145) mmol/L Potassium 4.3 (3.5-5.1) mmol/L Chloride 94 L (98-107) mmol/L Carbon Dioxide 22 (22-30) mmol/L BUN 22 H (7-17) mg/dL Creatinine 1.77 H (0.52-1.04) mg/dL Glucose 560 H* (74-99) mg/dL Calcium 8.8 (8.4-10.2) mg/dL AST 35 (14-36) U/L ALT 22 (4-34) U/L Alkaline Phosphatase 128 H (38-126) U/L Total Protein 6.0 L (6.3-8.2) g/dL Albumin 3.0 L (3.5-5.0) g/dL Current Medications Generic Name Dose Route Start Last Admin Trade Name Freq PRN Reason Stop Dose Admin Aspirin 325 mg 01/04/22 09:00 Aspirin 325 Mg Tab PO DAILY MACARIO Heparin Sodium (Porcine) 0 unit 01/03/22 20:39 Heparin Sodium 1,000 Un/Ml (10ml Vl) IV PER PROTOCOL PRN Low PTT Protocol Heparin Sodium/Sodium Chloride 250 mls @ 8.219 mls/hr 01/03/22 20:45 01/04/22 06:56 25,000 unit/ Sodium Chloride IV 9 units/kg/hr .Q24H MACARIO 6.164 mls/hr Titration Protocol 12 UNITS/KG/HR Sodium Chloride 1,000 mls @ 75 mls/hr 01/03/22 22:00 01/04/22 00:17 Saline 0.9% IV 75 mls/hr .[id number] MACARIO Administration Metoprolol Tartrate 25 mg 01/04/22 09:00 Metoprolol Tartrate 25 Mg Tab PO BID MACARIO Nitroglycerin 0.4 mg 01/03/22 22:00 Nitroglycerin Sl Tabs 0.4 Mg Tab SUBLINGUAL Q5M PRN Chest Pain Intake and Output 01/03/22 01/04/22 01/04/22 22:59 06:59 14:59 Intake Total 60.41 Balance 60.41 Intake: Intake, IV Titration 60.41 Amount Heparin Sod,Pork in 0.45% 60.41 NaCl 25,000 unit In 0.45 % NaCl 1 250ml.bag @ 12 UNITS/KG/HR 8.219 mls/hr IV .Q24H [facility] Rx#: [id number] Other: Weight 68.492 kg 01/04/22 03:35 01/03/22 17:37
[2022-01-04 11:56] LABS: Glucose,Whole Blood 447 mg/dL (75-99)
[2022-01-04] MEDS ORDERED: INSULIN ASPART (NovoLOG) 100 UNIT/ML VIAL SQ ONE (12:05)
[2022-01-04 13:36] LABS: Albumin 2.5 g/dL (3.5-5.0); Calcium 8.1 mg/dL (8.4-10.2); Magnesium 2.3 mg/dL (1.6-2.3); Total Bilirubin 2.9 mg/dL (0.2-1.3); Total Protein 5.2 g/dL (6.3-8.2)
[2022-01-04] MEDS ORDERED: INSULIN PUMP BASAL RATES 1 EACH MISC MISCELLANE PRN (13:46)
[2022-01-04] MEDS ORDERED: INSPUCOR MISCELLANE PRN (13:46)
[2022-01-04] MEDS ORDERED: INSULIN ASPART (NovoLOG) 100 UNIT/ML VIAL SQ PRN (13:46)
--- NOTE | 2022-01-04 14:09 | P.HPIM ---
History of Present Illness H&P Date: 01/04/22 Chief Complaint: hyperglycemia Patient is a pleasant 66-year-old female that presented to the emergency room with hyperglycemia. Patient wears an insulin pump, normally getting basal and bolus insulin. Upon review insulin pump was not working, was not administering any insulin. Patient is normally well controlled on pump and counting carb intake. Troponins were elevated at 0.2 on admission and cardiology was consulted. Patient has a history of liver disease and is on the transplant waiting list. Patient has appointment this month with kidney specialist for chronic kidney disease. Other pertinent medical history includes GERD, hyperlipidemia, fibromyalgia, coronary artery disease, heart failure, esophageal varices, status post TIPS for cirrhosis and acsites and confusion when ammonia levels are elevated, taking lactulose daily. Patient was seen and evaluated at bedside. Patient is alert and oriented, short term memory intact at this time. Patient reports feeling well, just concerned about her sugar levels. Patient's daughter brought in supplies needed to reapply the pump, we will restart the pump to assess function while being monitored in the hospital. Patient denies chest pain, shortness of breath, palpitations. Troponins were elevated, await cardiology recommendations. Review of Systems Constitutional: Denies chills, Denies fever, Denies weight gain Eyes: denies blurred vision Ears, nose, mouth and throat: Denies headache, Denies sinus pain, Denies sore th roat Cardiovascular: Denies chest pain, Denies edema, Denies high blood pressure, Denies syncope Respiratory: Denies cough, Denies dyspnea Gastrointestinal: Denies abdominal pain, Denies constipation, Denies diarrhea Genitourinary: Denies dysuria, Denies urgency Musculoskeletal: Denies leg numbness/tingling, Denies limitation of motion, Denies myalgias Integumentary: Denies lesions, Denies pruritus Neurological: Denies balance difficulties, Denies seizures, Denies tremors, Denies weakness Psychiatric: Reports confusion, Denies anxiety, Denies irritability Endocrine: Denies fatigue, Denies palpitations Hematologic/Lymphatic: Denies easy bruising Allergic/Immunologic: Denies anaphylaxis, Denies wheezing Past Medical History Past Medical History: Coronary Artery Disease (CAD), Cancer, Chest Pain / Angina, Heart Failure, Diabetes Mellitus, Fibromyalgia, GERD/Reflux, Hyperlipid emia, Liver Disease, Renal Disease, Skin Disorder Additional Past Medical History / Comment(s): Non-ETOH cirrhosis, ascities, esophageal varices, pancytopenia, thrombycytopenia, anemia, IDDM with insulin pump, several nodules both lungs being monitored, urinary leakage at times and pt states she has diarrhea much of the time, psoriasis, cervical cancer, pt states 2 blockages in back of heart, awaiting liver transplant at [facility] in [place]. hx migraines, 2 seizures post back surgery, hiatal hernia, patient is undergoing work up for a possible TIPS at [facility] History of Any Multi-Drug Resistant Organisms: None Reported Past Surgical History: Back Surgery, Breast Surgery, Cholecystectomy, Heart Catheterization, Hysterectomy, Orthopedic Surgery, Tonsillectomy, Tubal Ligation Additional Past Surgical History / Comment(s): multi large volume Paracentesis, EGD with banded esophageal varices, colonoscopies, bilateral rotator cuff repairs, bilateral breast bx-benign, back surgery in 2014, TIPS Past Anesthesia/Blood Transfusion Reactions: Previous Problems w/ Anesthesia, Family History of Problems w/ Anesthesia, Motion Sickness Additional Past Anesthesia/Blood Transfusion Reaction / Comment(s): difficulty breathing when coming out of anesthesia; difficulty waking up. Hypotension with general anesthesia. blood transfusions without reaction. sister- slow coming out and PONV Past Psychological History: No Psychological Hx Reported Smoking Status: Former smoker Past Alcohol Use History: None Reported Past Drug Use History: None Reported - Past Family History Mother Family Medical History: Cancer Additional Family Medical History / Comment(s): skin cancer. Father Family Medical History: Coronary Artery Disease (CAD) Additional Family Medical History / Comment(s): cabg/pacemaker Brother(s) Family Medical History: Cancer Sister(s) Family Medical History: Cancer, Deep Vein Thrombosis (DVT) Additional Family Medical History / Comment(s): Breast CA. Medications and Allergies Home Medications Medication Instructions Recorded Confirmed Type Ezetimibe [Zetia] 10 mg PO DAILY 09/04/16 01/03/22 History INSULIN LISPRO (For Pump) [humaLOG 0.01 units SQ-PUMP CONTINUOUS 09/04/16 01/03/22 History (For Pump)] Sertraline [Zoloft] 25 mg PO DAILY 01/12/17 01/03/22 History Lactulose 20 gm PO DAILY 08/22/18 01/03/22 History Atorvastatin [Lipitor] 40 mg PO HS 02/03/20 01/03/22 History Vitamin A Acetate [Vitamin A] 20,000 unit SL DAILY 02/03/20 01/03/22 History Potassium Chloride ER [K-Dur 20] 20 meq PO DAILY 06/24/20 01/03/22 History Midodrine HCl [ProAmatine] 10 mg PO BID 03/15/21 01/03/22 History Pantoprazole Sodium [Protonix] 40 mg PO DAILY 03/15/21 01/03/22 History Rifaximin [Xifaxan] 550 mg PO BID 03/15/21 01/03/22 History Furosemide [Lasix] 20 mg PO BID 07/25/21 01/03/22 History Zinc 50 mg PO DAILY 90 Days #90 tab 07/28/21 01/03/22 Rx Cholecalciferol [Vitamin D3 (125 125 mcg PO DAILY 01/03/22 01/03/22 History Mcg = 5000 Iu)] Montelukast [Singulair] 10 mg PO HS 01/03/22 01/03/22 History Allergies Allergy/AdvReac Type Severity Reaction Status Date / Time doxycycline Allergy Rash/Hives Verified 01/03/22 22:04 iodine Allergy Rash/Hives Verified 01/03/22 22:04 Penicillins Allergy Rash/Hives Verified 01/03/22 22:04 shellfish derived Allergy Rash/Hives Verified 01/03/22 22:04 Sulfa (Sulfonamide Allergy Rash/Hives Verified 01/03/22 22:04 Antibiotics) venom-honey bee Allergy Anaphylaxis Verified 01/03/22 22:04 [bee venom (honey bee)] Physical Exam Vitals: Vital Signs Temp Pulse Resp BP Pulse Ox 01/04/22 09:15 98.0 F 74 16 100/41 94 L 01/04/22 04:42 97.9 F 87 18 119/47 95 01/04/22 00:24 72 18 100/45 98 01/03/22 21:52 71 18 103/34 97 01/03/22 16:01 98.4 F 68 18 99/36 97 Intake and Output 01/03/22 01/04/22 01/04/22 22:59 06:59 14:59 Intake Total 60.41 Balance 60.41 Intake: Intake, IV Titration 60.41 Amount Heparin Sod,Pork in 0.45% 60.41 NaCl 25,000 unit In 0.45 % NaCl 1 250ml.bag @ 12 UNITS/KG/HR 8.219 mls/hr IV .Q24H [facility] Rx#: [id number] Other: Weight 68.492 kg - Constitutional General appearance: no acute distress - EENT Eyes: EOMI, PERRLA ENT: normal oropharynx - Neck Neck: normal ROM - Respiratory Respiratory: bilateral: CTA - Cardiovascular Heart rate: 70 Rhythm: regular Heart sounds: normal: S1, S2 radial pulse Peripheral Pulses: bilateral: Normal - Gastrointestinal General gastrointestinal: distended, normal bowel sounds - Integumentary Integumentary: normal turgor - Neurologic Neurologic: CNII-XII intact - Musculoskeletal Musculoskeletal: gait normal - Psychiatric Psychiatric: A&O x's 3, appropriate affect, intact judgment & insight Results CBC & Chem 7: 01/04/22 03:35 01/04/22 12:58 Labs: Abnormal Lab Results - Last 24 Hours (Table) 01/03/22 01/03/22 01/03/22 Range/Units 17:37 17:37 19:18 WBC (3.8-10.6) k/uL RBC 2.69 L (3.80-5.40) m/uL Hgb 9.2 L (11.4-16.0) gm/dL Hct 26.3 L (34.0-46.0) % RDW 17.4 H (11.5-15.5) % Plt Count 69 L (150-450) k/uL Lymphocytes # 0.5 L (1.0-4.8) k/uL PT (9.0-12.0) sec INR (<1.2) APTT (22.0-30.0) sec Sodium 123 L (137-145) mmol/L Chloride 94 L (98-107) mmol/L BUN 22 H (7-17) mg/dL Creatinine 1.77 H (0.52-1.04) mg/dL Glucose 560 H* (74-99) mg/dL POC Glucose (mg/dL) (75-99) mg/dL Hemoglobin A1c (0.0-6.0) % Total Bilirubin 4.3 H (0.2-1.3) mg/dL Alkaline Phosphatase 128 H (38-126) U/L Troponin I 0.206 H* (0.000-0.034) ng/mL Total Protein 6.0 L (6.3-8.2) g/dL Albumin 3.0 L (3.5-5.0) g/dL HDL Cholesterol (40.00-60.00) mg/dL Urine Appearance (Clear) Urine Glucose (UA) (Negative) Ur Leukocyte Esterase (Negative) Urine WBC (0-5) /hpf Urine WBC Clumps (None) /hpf Ur Squamous Epith Cells (0-4) /hpf 01/03/22 01/03/22 01/03/22 Range/Units 19:28 20:00 21:24 WBC (3.8-10.6) k/uL RBC (3.80-5.40) m/uL Hgb (11.4-16.0) gm/dL Hct (34.0-46.0) % RDW (11.5-15.5) % Plt Count (150-450) k/uL Lymphocytes # (1.0-4.8) k/uL PT 14.5 H (9.0-12.0) sec INR 1.4 H (<1.2) APTT (22.0-30.0) sec Sodium (137-145) mmol/L Chloride (98-107) mmol/L BUN (7-17) mg/dL Creatinine (0.52-1.04) mg/dL Glucose (74-99) mg/dL POC Glucose (mg/dL) 530 H (75-99) mg/dL Hemoglobin A1c (0.0-6.0) % Total Bilirubin (0.2-1.3) mg/dL Alkaline Phosphatase (38-126) U/L Troponin I (0.000-0.034) ng/mL Total Protein (6.3-8.2) g/dL Albumin (3.5-5.0) g/dL HDL Cholesterol (40.00-60.00) mg/dL Urine Appearance Cloudy H (Clear) Urine Glucose (UA) 4+ H (Negative) Ur Leukocyte Esterase Moderate H (Negative) Urine WBC 64 H (0-5) /hpf Urine WBC Clumps Occasional H (None) /hpf Ur Squamous Epith Cells 9 H (0-4) /hpf 01/03/22 01/03/22 01/03/22 Range/Units 21:56 22:24 23:48 WBC (3.8-10.6) k/uL RBC (3.80-5.40) m/uL Hgb (11.4-16.0) gm/dL Hct (34.0-46.0) % RDW (11.5-15.5) % Plt Count (150-450) k/uL Lymphocytes # (1.0-4.8) k/uL PT (9.0-12.0) sec INR (<1.2) APTT (22.0-30.0) sec Sodium (137-145) mmol/L Chloride (98-107) mmol/L BUN (7-17) mg/dL Creatinine (0.52-1.04) mg/dL Glucose (74-99) mg/dL POC Glucose (mg/dL) 413 H 352 H (75-99) mg/dL Hemoglobin A1c (0.0-6.0) % Total Bilirubin (0.2-1.3) mg/dL Alkaline Phosphatase (38-126) U/L Troponin I 0.173 H* (0.000-0.034) ng/mL Total Protein (6.3-8.2) g/dL Albumin (3.5-5.0) g/dL HDL Cholesterol (40.00-60.00) mg/dL Urine Appearance (Clear) Urine Glucose (UA) (Negative) Ur Leukocyte Esterase (Negative) Urine WBC (0-5) /hpf Urine WBC Clumps (None) /hpf Ur Squamous Epith Cells (0-4) /hpf 01/04/22 01/04/22 01/04/22 Range/Units 02:28 03:35 03:35 WBC 2.8 L (3.8-10.6) k/uL RBC 2.26 L (3.80-5.40) m/uL Hgb 7.8 L (11.4-16.0) gm/dL Hct 22.5 L (34.0-46.0) % RDW 17.9 H (11.5-15.5) % Plt Count 52 L (150-450) k/uL Lymphocytes # 0.5 L (1.0-4.8) k/uL PT 15.0 H (9.0-12.0) sec INR 1.5 H (<1.2) APTT >200.0 H* (22.0-30.0) sec Sodium (137-145) mmol/L Chloride (98-107) mmol/L BUN (7-17) mg/dL Creatinine (0.52-1.04) mg/dL Glucose (74-99) mg/dL POC Glucose (mg/dL) 326 H (75-99) mg/dL Hemoglobin A1c (0.0-6.0) % Total Bilirubin (0.2-1.3) mg/dL Alkaline Phosphatase (38-126) U/L Troponin I (0.000-0.034) ng/mL Total Protein (6.3-8.2) g/dL Albumin (3.5-5.0) g/dL HDL Cholesterol (40.00-60.00) mg/dL Urine Appearance (Clear) Urine Glucose (UA) (Negative) Ur Leukocyte Esterase (Negative) Urine WBC (0-5) /hpf Urine WBC Clumps (None) /hpf Ur Squamous Epith Cells (0-4) /hpf 01/04/22 01/04/22 01/04/22 Range/Units 03:35 03:35 03:35 WBC (3.8-10.6) k/uL RBC (3.80-5.40) m/uL Hgb (11.4-16.0) gm/dL Hct (34.0-46.0) % RDW (11.5-15.5) % Plt Count (150-450) k/uL Lymphocytes # (1.0-4.8) k/uL PT (9.0-12.0) sec INR (<1.2) APTT (22.0-30.0) sec Sodium (137-145) mmol/L Chloride (98-107) mmol/L BUN (7-17) mg/dL Creatinine (0.52-1.04) mg/dL Glucose (74-99) mg/dL POC Glucose (mg/dL) (75-99) mg/dL Hemoglobin A1c 9.6 H (0.0-6.0) % Total Bilirubin (0.2-1.3) mg/dL Alkaline Phosphatase (38-126) U/L Troponin I 0.154 H* (0.000-0.034) ng/mL Total Protein (6.3-8.2) g/dL Albumin (3.5-5.0) g/dL HDL Cholesterol 29.30 L (40.00-60.00) mg/dL Urine Appearance (Clear) Urine Glucose (UA) (Negative) Ur Leukocyte Esterase (Negative) Urine WBC (0-5) /hpf Urine WBC Clumps (None) /hpf Ur Squamous Epith Cells (0-4) /hpf 01/04/22 01/04/22 Range/Units 08:07 11:54 WBC (3.8-10.6) k/uL RBC (3.80-5.40) m/uL Hgb (11.4-16.0) gm/dL Hct (34.0-46.0) % RDW (11.5-15.5) % Plt Count (150-450) k/uL Lymphocytes # (1.0-4.8) k/uL PT (9.0-12.0) sec INR (<1.2) APTT (22.0-30.0) sec Sodium (137-145) mmol/L Chloride (98-107) mmol/L BUN (7-17) mg/dL Creatinine (0.52-1.04) mg/dL Glucose (74-99) mg/dL POC Glucose (mg/dL) 303 H 447 H (75-99) mg/dL Hemoglobin A1c (0.0-6.0) % Total Bilirubin (0.2-1.3) mg/dL Alkaline Phosphatase (38-126) U/L Troponin I (0.000-0.034) ng/mL Total Protein (6.3-8.2) g/dL Albumin (3.5-5.0) g/dL HDL Cholesterol (40.00-60.00) mg/dL Urine Appearance (Clear) Urine Glucose (UA) (Negative) Ur Leukocyte Esterase (Negative) Urine WBC (0-5) /hpf Urine WBC Clumps (None) /hpf Ur Squamous Epith Cells (0-4) /hpf Microbiology - Last 24 Hours (Table) 01/03/22 19:28 Urine Culture - Preliminary Urine,Voided Chest x-ray: report reviewed Thrombosis Risk Factor Assmnt - DVT/VTE Prophylaxis DVT/VTE Prophylaxis: Low risk, early ambulation encouraged - Choose All That Apply Any of the Below Risk Factors Present?: No Other Risk Factors: Yes Each Risk Factor Represents 2 Points: Age 61-74 years Thrombosis Risk Factor Assessment Total Risk Factor Score: 2 Thrombosis Risk Factor Assessment Level: Low Risk Assessment and Plan Assessment: Insulin-dependent Type 2 diabetes with hyperglycemia Elevated troponin, rule out ACS chronic kidney disease, stage III Cirrhosis status post TIPS Pancytopenia, from chronic conditions GERD Fibromyalgia History of heart failure and coronary artery disease Plan: We'll convert patient from sliding scale insulin to insulin pump, monitor insulin administration on pump Continue counting carbohydrates before administering bolus insulin Follow cardiology recommendations for elevated troponin Continue to monitor vital signs and mentation Continue to monitor kidney function and liver enzymes Further recommendations to come based on patient's clinical course Time with Patient: Greater than 30
[2022-01-04 19:44] LABS: Glucose,Whole Blood 396 mg/dL (75-99)
[2022-01-04 21:43] LABS: Glucose,Whole Blood 425 mg/dL (75-99)
[2022-01-04] MEDS: ATORVASTATIN 40 MG TAB PO SCH (21:56)
[2022-01-04] MEDS: MONTELUKAST 10 MG TAB PO SCH (21:56)
[2022-01-05 02:05] LABS: Glucose,Whole Blood 226 mg/dL (75-99)
[2022-01-05] MEDS: SODIUM CHLORIDE 0.9% 1,000 ML IV SCH ×2 (03:40→21:43)
[2022-01-05 05:18] LABS: Glucose,Whole Blood 172 mg/dL (75-99)
[2022-01-05] MEDS: INSULIN ASPART (NovoLOG) 100 UNIT/ML VIAL SQ SCH ×5 (06:34→21:43)
[2022-01-05] MEDS: PANTOPRAZOLE 40 MG TABLET PO SCH (06:35)
[2022-01-05] MEDS: MIDODRINE 5 MG TAB PO SCH ×2 (06:35→17:34)
[2022-01-05 06:58] LABS: Anisocytosis Slight; HCT 23.9 % (34.0-46.0); HGB 8.5 gm/dL (11.4-16.0); MCHC 35.4 g/dL (31.0-37.0); MCV 99.1 fL (80.0-100.0); Macrocytosis Slight; Mean Platelet Volume 11.6; Platelet Count 47 k/uL (150-450); Poikilocytosis Slight; RBC 2.42 m/uL (3.80-5.40); RDW 17.3 % (11.5-15.5); WBC 3.7 k/uL (3.8-10.6)
[2022-01-05 07:47] LABS: Albumin 2.4 g/dL (3.5-5.0); Calcium 7.7 mg/dL (8.4-10.2); Potassium 3.5 mmol/L (3.5-5.1); Total Bilirubin 2.6 mg/dL (0.2-1.3); Total Protein 5.2 g/dL (6.3-8.2)
[2022-01-05] MEDS: FUROSEMIDE 20 MG TAB PO SCH ×2 (08:36→17:34)
[2022-01-05] MEDS: LACTULOSE 20 GM/30 ML CUP PO SCH (08:36)
[2022-01-05] MEDS: ASPIRIN 81 MG PO SCH (08:36)
[2022-01-05] MEDS: ZINC SULFATE 220 MG CAP PO SCH (08:36)
[2022-01-05] MEDS: METOPROLOL TARTRATE 25 MG TAB PO SCH ×2 (08:36→21:43)
[2022-01-05] MEDS: EZETIMIBE 10 MG TAB PO SCH (08:36)
[2022-01-05] MEDS: SERTRALINE 25 MG TAB PO SCH (08:36)
[2022-01-05] MEDS: CHOLECALCIFEROL 125 MCG (5000 IU) TABLET PO SCH (08:36)
[2022-01-05] MEDS: POTASSIUM CHLORIDE ER 20 MEQ TAB.ER PO SCH (08:38)
[2022-01-05 11:25] LABS: Glucose,Whole Blood 284 mg/dL (75-99)
--- NOTE | 2022-01-05 12:07 | P.PN ---
Subjective This is a pleasant 66-year-old female past medical history significant for mild to moderate coronary artery disease, alcoholic liver cirrhosis, recurrent ascites, esophageal varices, pancytopenia, diabetes mellitus, dyslipidemia, former tobacco use, and paroxysmal atrial fibrillation not on shelter anticoagulation secondary to liver disease. She follows in the office with Dr. Orona. She follows with a goat farmer at [facility]. She is also being worked up for a liver transplant at [facility]. We have been asked to see in consultation for elevated troponin. She presented to the hospital with symptoms of hyperglycemia. She states on 12/31/21 Her insulin pump turned off. She states since then she started noticing her glucose machine read "high". She had symptoms of lightheadedness, polyuria and polydypsia. She came to the ER for further evaluation. She denies any chest pain, shortness of breath, syncope, symptoms of orthopnea or PND. DIAGNOSTICS EKG reveals sinus rhythm, heart rate 67, no significant ST-T wave abnormalities suggest ischemia, poor R wave progression. Repeat EKG revealed sinus rhythm with a PVC, heart rate 65, no significant ST-T wave abnormalities. Prior EKG was similar findings. Telemetry tracings indicate sinus mechanism, no arrhythmia noted Records from [facility]: 2018 cardiac catheterization performed at [facility], left main 0% stenosis, proximal LAD 40% stenosis, mid LAD 50% stenosis, D1 ostial 71%, proximal circumflex 71%, OM 60%. No PCI or angioplasty was performed. 01/05/2022 Patient seen and examined at bedside, no distress. She states that her symptoms have significantly improved. Her insulin pump was turned on. She denies any chest pain or shortness of breath. Vitals stable. Blood sugars improved. She is currently maintained on aspirin 81mg daily, atorvastatin 40 mg nightly, potassium chloride, Midodrine , Lasix 20 mg twice a day, Zetia 10 mg daily Labs: Sodium 133, potassium 3.5, BUN 20, serum creatinine 1.5 PHYSICAL EXAMINATION Vitals reviewed CONSTITUTIONAL: No apparent distress. HEENT: Neck Supple. No JVD. CHEST EXAMINATION: Lungs are clear to auscultation bilaterally. HEART EXAMINATION: Regular rate and rhythm. S1, S2 heard. Systolic ejection murmur at the base ABDOMEN: Soft, nontender. Positive bowel sounds. EXTREMITIES: 2+ peripheral pulses, no bilateral lower extremity pitting edema. NEUROLOGIC EXAMINATION: Patient is awake, alert and oriented x3. ASSESSMENT Elevated troponin, likely related to chronic kidney disease, trend not indicative of acute coronary syndrome, patient without any chest pain, EKG with no evidence of acute ischemia Hyperglycemia Symptoms of polydypsia and polyuria Pancytopenia Paroxysmal atrial fibrillation, not on shelter anticoagulation secondary to liver disease, in sinus mechanism. Chronic liver disease Dyslipidemia Esophageal varices Diabetes mellitus, IDDM, with insulin pump Coronary artery disease Chronic kidney disease Former nicotine dependence PLAN Echo pending will follow up on results. Diabetes management per primary Continue home cardiac medications From a cardiology perspective, no further inpatient treatment or changes at this time. We will follow up with Echo. Discharge per primary. Nurse Practitioner note has been reviewed, I agree with a documented findings and plan of care. Patient was seen and examined. Objective - Vital Signs Vital signs: Vital Signs Temp 98.1 F 01/05/22 04:00 Pulse 63 01/05/22 11:49 Resp 16 01/05/22 11:49 BP 109/52 01/05/22 11:49 Pulse Ox 90 L 01/05/22 11:49 Intake & Output 01/04/22 01/05/22 01/05/22 18:59 06:59 18:59 Intake Total 1140 Balance 1140 Weight 68.492 kg 68.6 kg Intake: Intake, IV Titration 900 Amount Sodium Chloride 0.9% 1, 900 000 ml @ 100 mls/hr IV . Q10H [facility] Rx#:[id number] Oral 240 Other: Voiding Method Toilet Toilet # Voids 3 - Labs CBC & Chem 7: 01/05/22 06:48 01/05/22 06:48 Labs: Abnormal Lab Results - Last 24 Hours (Table) 01/04/22 01/04/22 01/04/22 Range/Units 12:58 12:58 19:42 WBC (3.8-10.6) k/uL RBC (3.80-5.40) m/uL Hgb (11.4-16.0) gm/dL Hct (34.0-46.0) % RDW (11.5-15.5) % Plt Count (150-450) k/uL APTT 40.1 H (22.0-30.0) sec Sodium 129 L (137-145) mmol/L Chloride (98-107) mmol/L Carbon Dioxide 20 L (22-30) mmol/L BUN 19 H (7-17) mg/dL Creatinine 1.60 H (0.52-1.04) mg/dL Glucose 458 H (74-99) mg/dL POC Glucose (mg/dL) 396 H (75-99) mg/dL Calcium 8.1 L (8.4-10.2) mg/dL Total Bilirubin 2.9 H (0.2-1.3) mg/dL AST 43 H (14-36) U/L Total Protein 5.2 L (6.3-8.2) g/dL Albumin 2.5 L (3.5-5.0) g/dL 01/04/22 01/05/22 01/05/22 Range/Units 21:39 02:03 05:15 WBC (3.8-10.6) k/uL RBC (3.80-5.40) m/uL Hgb (11.4-16.0) gm/dL Hct (34.0-46.0) % RDW (11.5-15.5) % Plt Count (150-450) k/uL APTT (22.0-30.0) sec Sodium (137-145) mmol/L Chloride (98-107) mmol/L Carbon Dioxide (22-30) mmol/L BUN (7-17) mg/dL Creatinine (0.52-1.04) mg/dL Glucose (74-99) mg/dL POC Glucose (mg/dL) 425 H 226 H 172 H (75-99) mg/dL Calcium (8.4-10.2) mg/dL Total Bilirubin (0.2-1.3) mg/dL AST (14-36) U/L Total Protein (6.3-8.2) g/dL Albumin (3.5-5.0) g/dL 01/05/22 01/05/22 01/05/22 Range/Units 06:48 06:48 11:23 WBC 3.7 L (3.8-10.6) k/uL RBC 2.42 L (3.80-5.40) m/uL Hgb 8.5 L (11.4-16.0) gm/dL Hct 23.9 L (34.0-46.0) % RDW 17.3 H (11.5-15.5) % Plt Count 47 L (150-450) k/uL APTT (22.0-30.0) sec Sodium 133 L (137-145) mmol/L Chloride 109 H (98-107) mmol/L Carbon Dioxide 21 L (22-30) mmol/L BUN 20 H (7-17) mg/dL Creatinine 1.59 H (0.52-1.04) mg/dL Glucose 164 H (74-99) mg/dL POC Glucose (mg/dL) 284 H (75-99) mg/dL Calcium 7.7 L (8.4-10.2) mg/dL Total Bilirubin 2.6 H (0.2-1.3) mg/dL AST (14-36) U/L Total Protein 5.2 L (6.3-8.2) g/dL Albumin 2.4 L (3.5-5.0) g/dL Microbiology - Last 24 Hours (Table) 01/03/22 19:28 Urine Culture - Final Urine,Voided 01/03/22 21:33 Blood Culture - Preliminary Blood No Growth after 24 hours
--- NOTE | 2022-01-05 13:28 | P.DS ---
Providers Date of admission: 01/03/22 22:23 Expected date of discharge: 01/05/22 Attending physician: Dario Underwood Consults: 01/03/22 22:00 Consult Physician Urgent Consulting Provider: Reinaldo Snyder Consult Reason/Comments: And STEMI Do you want consulting provider notified?: Already Contacted Primary care physician: Dario Underwood [facility] Course: Patient is a pleasant 66-year-old female that presented to the emergency room with hyperglycemia. Patient wears an insulin pump, normally getting basal and bolus insulin. Upon review insulin pump was not working, was not administering any insulin. Patient is normally well controlled on pump and counting carb intake. Troponins were elevated at 0.2 on admission and cardiology was consulted. Patient has a history of liver disease and is on the transplant waiting list. Patient has appointment this month with kidney specialist for chronic kidney disease. Other pertinent medical history includes GERD, hyperlipidemia, fibromyalgia, coronary artery disease, heart failure, esophageal varices, status post TIPS for cirrhosis and acsites and confusion when ammonia levels are elevated, taking lactulose daily. Patient was seen and evaluated at bedside. Patient is alert and oriented, short term memory intact at this time. Patient reports feeling well, just concerned about her sugar levels. Patient's daughter brought in supplies needed to reapply the pump, we will restart the pump to assess function while being monitored in the hospital. Patient denies chest pain, shortness of breath, palpitations. Troponins were elevated, await cardiology recommendations 01/05/2022 Patient was seen and examined at bedside, patient was resting comfortably in bed in no acute distress. She reports feeling well, ready to go home. Insulin pump was restarted, and has been functioning properly. Echocardiogram is still pending, and cardiology cleared patient for discharge and will follow-up in the office. Patient is stable for discharge at this time Assessment: Insulin-dependent Type 2 diabetes with hyperglycemia Elevated troponin, rule out ACS chronic kidney disease, stage III Cirrhosis status post TIPS Pancytopenia, from chronic conditions GERD Fibromyalgia History of heart failure and coronary artery disease Health Concerns: multiple comorbidities Pertinent Studies: chest xray- mild interstitial edema Patient Condition at Discharge: Fair Plan - Discharge Summary Discharge Rx Participant: No New Discharge Prescriptions: New Metoprolol Tartrate [Lopressor] 25 mg PO BID 30 Days #60 tab Continue INSULIN LISPRO (For Pump) [humaLOG (For Pump)] 0.01 units SQ-PUMP CONTINUOUS Ezetimibe [Zetia] 10 mg PO DAILY Sertraline [Zoloft] 25 mg PO DAILY Lactulose 20 gm PO DAILY Atorvastatin [Lipitor] 40 mg PO HS Vitamin A Acetate [Vitamin A] 20,000 unit SL DAILY Potassium Chloride ER [K-Dur 20] 20 meq PO DAILY Midodrine HCl [ProAmatine] 10 mg PO BID Pantoprazole Sodium [Protonix] 40 mg PO DAILY Furosemide [Lasix] 20 mg PO BID Montelukast [Singulair] 10 mg PO HS Cholecalciferol [Vitamin D3 (125 Mcg = 5000 Iu)] 125 mcg PO DAILY Zinc 50 mg PO DAILY 90 Days #90 tab Discontinued Rifaximin [Xifaxan] 550 mg PO BID Discharge Medication List Ezetimibe [Zetia] 10 mg PO DAILY 09/04/16 [History] INSULIN LISPRO (For Pump) [humaLOG (For Pump)] 0.01 units SQ-PUMP CONTINUOUS 09/04/16 [History] Sertraline [Zoloft] 25 mg PO DAILY 01/12/17 [History] Lactulose 20 gm PO DAILY 08/22/18 [History] Atorvastatin [Lipitor] 40 mg PO HS 02/03/20 [History] Vitamin A Acetate [Vitamin A] 20,000 unit SL DAILY 02/03/20 [History] Potassium Chloride ER [K-Dur 20] 20 meq PO DAILY 06/24/20 [History] Midodrine HCl [ProAmatine] 10 mg PO BID 03/15/21 [History] Pantoprazole Sodium [Protonix] 40 mg PO DAILY 03/15/21 [History] Furosemide [Lasix] 20 mg PO BID 07/25/21 [History] Zinc 50 mg PO DAILY 90 Days #90 tab 07/28/21 [Rx] Cholecalciferol [Vitamin D3 (125 Mcg = 5000 Iu)] 125 mcg PO DAILY 01/03/22 [History] Montelukast [Singulair] 10 mg PO HS 01/03/22 [History] Metoprolol Tartrate [Lopressor] 25 mg PO BID 30 Days #60 tab 01/05/22 [Rx] Follow up Appointment(s)/Referral(s): Dario Underwood MD [Primary Care Provider] - 1-2 days Charlie Orona MD [STAFF PHYSICIAN] - 1 Week Patient Instructions/Handouts: Insulin Scale A (MPH) Activity/Diet/Wound Care/Special Instructions: Monitor pump daily to ensure basal dose is running. Discharge Disposition: HOME SELF-CARE
[2022-01-05 14:02] VITALS: BMI 25.1
[2022-01-05 16:25] LABS: Glucose,Whole Blood 391 mg/dL (75-99)
[2022-01-05 20:28] LABS: Glucose,Whole Blood 184 mg/dL (75-99)
[2022-01-05] MEDS: ATORVASTATIN 40 MG TAB PO SCH (21:43)
[2022-01-05] MEDS: MONTELUKAST 10 MG TAB PO SCH (21:43)
[2022-01-06 04:11] VITALS: RESP 16
[2022-01-06] MEDS: SODIUM CHLORIDE 0.9% 1,000 ML IV SCH ×2 (04:12→08:28)
[2022-01-06] MEDS: INSULIN ASPART (NovoLOG) 100 UNIT/ML VIAL SQ SCH ×4 (06:32→21:36)
[2022-01-06] MEDS: PANTOPRAZOLE 40 MG TABLET PO SCH (06:32)
[2022-01-06] MEDS: MIDODRINE 5 MG TAB PO SCH ×2 (06:32→16:00)
[2022-01-06 06:42] LABS: Glucose,Whole Blood 226 mg/dL (75-99)
--- NOTE | 2022-01-06 07:37 | P.PN ---
Progress Note - Text Echocardiogram read by Dr. Mcfadden on 01/04/2022 at 10:51, not uploaded to [facility] at this time. Report will be placed in patient's Chart. Echocardiogram Revealed EF 55-60% LA is moderately dialted, mild to moderate mitral regurgitation, mild tricuspid regurgitation, trivial pericardial effusion
[2022-01-06] MEDS: FUROSEMIDE 20 MG TAB PO SCH ×2 (08:26→16:00)
[2022-01-06] MEDS: POTASSIUM CHLORIDE ER 20 MEQ TAB.ER PO SCH (08:26)
[2022-01-06] MEDS: ZINC SULFATE 220 MG CAP PO SCH (08:26)
[2022-01-06] MEDS: METOPROLOL TARTRATE 25 MG TAB PO SCH ×2 (08:26→21:37)
[2022-01-06] MEDS: LACTULOSE 20 GM/30 ML CUP PO SCH (08:26)
[2022-01-06] MEDS: ASPIRIN 81 MG PO SCH (08:26)
[2022-01-06] MEDS: EZETIMIBE 10 MG TAB PO SCH (08:26)
[2022-01-06] MEDS: CHOLECALCIFEROL 125 MCG (5000 IU) TABLET PO SCH (08:27)
[2022-01-06] MEDS: SERTRALINE 25 MG TAB PO SCH (08:27)
[2022-01-06] MEDS ORDERED: INSULIN DETEMIR (LEVEMIR) 100 UNIT/ML SYR SQ SCH (10:00)
[2022-01-06 11:36] LABS: Glucose,Whole Blood 334 mg/dL (75-99)
--- NOTE | 2022-01-06 12:23 | P.PN ---
Subjective This is a pleasant 66-year-old female past medical history significant for mild to moderate coronary artery disease, alcoholic liver cirrhosis, recurrent ascites, esophageal varices, pancytopenia, diabetes mellitus, dyslipidemia, former tobacco use, and paroxysmal atrial fibrillation not on care home anticoagulation secondary to liver disease. She follows in the office with Dr. Orona. 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 She is also being worked up for a liver transplant at [facility]. We have been asked to see in consultation for elevated troponin. She presented to the hospital with symptoms of hyperglycemia. She states on 12/31/21 Her insulin pump turned off. She states since then she started noticing her glucose machine read "high". She had symptoms of lightheadedness, polyuria and polydypsia. She came to the ER for further evaluation. She denies any chest pain, shortness of breath, syncope, symptoms of orthopnea or PND. DIAGNOSTICS EKG reveals sinus rhythm, heart rate 67, no significant ST-T wave abnormalities suggest ischemia, poor R wave progression. Repeat EKG revealed sinus rhythm with a PVC, heart rate 65, no significant ST-T wave abnormalities. Prior EKG was similar findings. Telemetry tracings indicate sinus mechanism, no arrhythmia noted Records from [facility]: 2018 cardiac catheterization performed at [facility], left main 0% stenosis, proximal LAD 40% stenosis, mid LAD 50% stenosis, D1 ostial 71%, proximal circumflex 71%, OM 60%. No PCI or angioplasty was performed. 01/06/2022 Patient seen and examined at bedside, no distress. She states that her symptoms have significantly improved. She denies any chest pain or shortness of breath. Vitals stable. She is currently maintained on aspirin 81mg daily, atorvastatin 40 mg nightly, potassium chloride, Midodrine , Lasix 20 mg twice a day, Zetia 10 mg daily PHYSICAL EXAMINATION Vitals reviewed CONSTITUTIONAL: No apparent distress. HEENT: Neck Supple. No JVD. CHEST EXAMINATION: Lungs are clear to auscultation bilaterally. HEART EXAMINATION: Regular rate and rhythm. S1, S2 heard. Systolic ejection murmur at the base ABDOMEN: Soft, nontender. Positive bowel sounds. EXTREMITIES: 2+ peripheral pulses, no bilateral lower extremity pitting edema. NEUROLOGIC EXAMINATION: Patient is awake, alert and oriented x3. ASSESSMENT Elevated troponin, likely related to chronic kidney disease, trend not indicative of acute coronary syndrome, patient without any chest pain, EKG with no evidence of acute ischemia Hyperglycemia Symptoms of polydypsia and polyuria Pancytopenia Paroxysmal atrial fibrillation, not on watermaster anticoagulation secondary to liver disease, in sinus mechanism. Chronic liver disease Dyslipidemia Esophageal varices Diabetes mellitus, IDDM, with insulin pump Coronary artery disease Chronic kidney disease Former nicotine dependence PLAN Echocardiogram Revealed EF 55-60% LA is moderately dialted, mild to moderate mi tral regurgitation, mild tricuspid regurgitation, trivial pericardial effusion Diabetes management per primary Continue home cardiac medications From a cardiology perspective, no further inpatient treatment or changes at this time. Ok to discharge. Follow up with Dr. Orona Nurse Practitioner note has been reviewed, I agree with a documented findings and plan of care. Patient was seen and examined. Objective - Vital Signs Vital signs: Vital Signs Temp 98.8 F 01/06/22 08:00 Pulse 60 01/06/22 12:00 Resp 16 01/06/22 12:00 BP 91/50 01/06/22 12:00 Pulse Ox 94 L 01/06/22 12:00 Intake & Output 01/05/22 01/06/22 01/06/22 18:59 06:59 18:59 Intake Total 118 1000 180 Output Total 1200 Balance 118 -200 180 Weight 68.6 kg 72.1 kg Intake: Intake, IV Titration 400 Amount Sodium Chloride 0.9% 1, 400 000 ml @ 100 mls/hr IV . Q10H [facility] Rx#:[id number] Oral 118 600 180 Output: Urine 1200 Other: Voiding Method Toilet Toilet Toilet # Voids 4 3 - Labs CBC & Chem 7: 01/05/22 06:48 01/05/22 06:48 Labs: Abnormal Lab Results - Last 24 Hours (Table) 01/05/22 01/05/22 01/06/22 Range/Units 16:23 20:20 06:23 POC Glucose (mg/dL) 391 H 184 H 226 H (75-99) mg/dL 01/06/22 Range/Units 11:35 POC Glucose (mg/dL) 334 H (75-99) mg/dL Microbiology - Last 24 Hours (Table) 01/03/22 21:33 Blood Culture - Preliminary Blood No Growth after 48 hours 01/03/22 19:28 Urine Culture - Final Urine,Voided
[2022-01-06] MEDS ORDERED: INSULIN ASPART (NovoLOG) 100 UNIT/ML VIAL SQ ONE (13:00)
[2022-01-06] MEDS ORDERED: INSULIN DETEMIR (LEVEMIR) 100 UNIT/ML SYR SQ ONE ×2 (15:05→22:02)
[2022-01-06 16:11] LABS: Glucose,Whole Blood 366 mg/dL (75-99)
--- NOTE | 2022-01-06 18:08 | P.PN ---
Subjective This is a pleasant 66 years old female with past medical history of diabetes mellitus on insulin pump, coronary artery disease, chronic heart failure, paroxysmal atrial fibrillation not on anticoagulation secondary to liver disease on the waiting list for liver transplant on [facility] in [place], pancytopenia, fibromyalgia, GERD , hyperlipidemia, migraine Patient presents because of hyperglycemia and nonfunctioning insulin pump machine for several weeks. She is to follow up with Dr. Gill but has been a while, currently she is following up with [facility] in [place], and she is known to follow up with them as well. Also patient has been evaluated by department manager for elevated troponin, echocardiogram showed preserved ejection fraction of 55-60% with [id number] mitral regurgitation cardiology already cleared her for discharge. Yesterday patient supposed to be discharged, her insulin pump was tried again but it was not working so kept in the hospital. Today his murmurs and care of the patient be started her on Levemir 5 units, increase to 7 units, her sugars still uncontrolled more than 300, because of this we going to monitor her overnight. Patient denies chest pain or dyspnea, no abdominal pain, no change in urine or bowel habits. No fever. She has evidence of mild pancytopenia with WBCs 3.7, hemoglobin 8.5 and platelet count 47. Creatinine is at baseline at 1.59 with baseline about 1.3-1.6. Glucose elevated as above. Oxygen saturating 90% on room air, she is hemodynamically stable. Insulin pump currently disconnected from the patient Objective - Vital Signs Vital signs: Vital Signs Temp 98.8 F 01/06/22 08:00 Pulse 60 01/06/22 12:00 Resp 16 01/06/22 12:00 BP 91/50 01/06/22 12:00 Pulse Ox 94 L 01/06/22 12:00 Intake & Output 01/05/22 01/06/22 01/06/22 18:59 06:59 18:59 Intake Total 118 1000 360 Output Total 1200 Balance 118 -200 360 Weight 68.6 kg 72.1 kg Intake: Intake, IV Titration 400 Amount Sodium Chloride 0.9% 1, 400 000 ml @ 100 mls/hr IV . Q10H [facility] Rx#:[id number] Oral 118 600 360 Output: Urine 1200 Other: Voiding Method Toilet Toilet Toilet # Voids 4 3 - Exam GENERAL: The patient is alert and oriented x3, not in any acute distress. Well developed, well nourished. HEENT: Pupils are round and equally reacting to light. EOMI. No scleral icterus. No conjunctival pallor. Normocephalic, atraumatic. No pharyngeal erythema. No thyromegaly. CARDIOVASCULAR: S1 and S2 present. No murmurs, rubs, or gallops. PULMONARY: Chest is clear to auscultation, no wheezing or crackles. ABDOMEN: Soft, nontender, nondistended, normoactive bowel sounds. No palpable organomegaly. MUSCULOSKELETAL: No joint swelling or deformity. EXTREMITIES: No cyanosis, clubbing, or pedal edema. NEUROLOGICAL: Gross neurological examination did not reveal any focal deficits. SKIN: No rashes. no petechiae. - Labs CBC & Chem 7: 01/05/22 06:48 01/05/22 06:48 Labs: Abnormal Lab Results - Last 24 Hours (Table) 01/05/22 01/05/22 01/06/22 Range/Units 16:23 20:20 06:23 POC Glucose (mg/dL) 391 H 184 H 226 H (75-99) mg/dL 01/06/22 Range/Units 11:35 POC Glucose (mg/dL) 334 H (75-99) mg/dL Microbiology - Last 24 Hours (Table) 01/03/22 21:33 Blood Culture - Preliminary Blood No Growth after 48 hours 01/03/22 19:28 Urine Culture - Final Urine,Voided Assessment and Plan Assessment: Insulin-dependent Type 2 diabetes with hyperglycemia, secondary to nonfunctioning insulin pump, switched Levemir Elevated troponin, secondary to kidney disease, department manager. The patient for discharge chronic kidney disease, stage III Cirrhosis status post TIPS, on waiting list for liver transplant at [facility] Pancytopenia, from chronic conditions GERD Fibromyalgia History ofcoronary artery disease chronic heart failure paroxysmal atrial fibrillation not on anticoagulation secondary to liver disease History of migraine Hyperlipidemia Plan: this is a pleasant 66 years old female who presents with hyperglycemia secondary to nonfunctioning insulin pump, Keep insulin pump off, start the patient on Levemir 7 units and increase and adjust dose accordingly, continue with insulin sliding scale Phlebotomist Lab Assistant already cleared the patient for discharge Labs and medication were reviewed.. Continue same treatment. Continue with symptomatic treatment. Resume home medication. Monitor lytes and vitals. DVT and GI prophylaxis. Further recommendations as per clinical course of the p atient DVT prophylaxis: Subcutaneous heparin GI Prophylaxis: Pepcid Possible discharge tomorrow if her sugar is controlled
[2022-01-06 21:06] LABS: Glucose,Whole Blood 355 mg/dL (75-99)
[2022-01-06] MEDS: ATORVASTATIN 40 MG TAB PO SCH (21:37)
[2022-01-06] MEDS: MONTELUKAST 10 MG TAB PO SCH (21:37)
[2022-01-06] MEDS: HEPARIN SODIUM,PORCINE/PF 5,000 UNIT/0.5 ML SYRINGE SQ SCH (21:37)
[2022-01-07 06:30] LABS: Glucose,Whole Blood 245 mg/dL (75-99)
[2022-01-07] MEDS ORDERED: INSULIN DETEMIR (LEVEMIR) 100 UNIT/ML SYR SQ SCH ×2 (07:00)
[2022-01-07] MEDS: MIDODRINE 5 MG TAB PO SCH (07:02)
[2022-01-07] MEDS: PANTOPRAZOLE 40 MG TABLET PO SCH (07:02)
[2022-01-07] MEDS: INSULIN ASPART (NovoLOG) 100 UNIT/ML VIAL SQ SCH ×4 (07:03→12:50)
[2022-01-07] MEDS: SODIUM CHLORIDE 0.9% 1,000 ML IV SCH (08:50)
[2022-01-07] MEDS: ASPIRIN 81 MG PO SCH (08:55)
[2022-01-07] MEDS: POTASSIUM CHLORIDE ER 20 MEQ TAB.ER PO SCH (08:55)
[2022-01-07] MEDS: CHOLECALCIFEROL 125 MCG (5000 IU) TABLET PO SCH (08:55)
[2022-01-07] MEDS: EZETIMIBE 10 MG TAB PO SCH (08:55)
[2022-01-07] MEDS: FUROSEMIDE 20 MG TAB PO SCH (08:55)
[2022-01-07] MEDS: SERTRALINE 25 MG TAB PO SCH (08:55)
[2022-01-07] MEDS: ZINC SULFATE 220 MG CAP PO SCH (08:55)
[2022-01-07] MEDS: LACTULOSE 20 GM/30 ML CUP PO SCH (08:56)
[2022-01-07] MEDS: HEPARIN SODIUM,PORCINE/PF 5,000 UNIT/0.5 ML SYRINGE SQ SCH (08:56)
[2022-01-07] MEDS: METOPROLOL TARTRATE 25 MG TAB PO SCH (08:56)
[2022-01-07 11:57] LABS: Glucose,Whole Blood 354 mg/dL (75-99)
[2022-01-07] MEDS ORDERED: INSULIN DETEMIR (LEVEMIR) 100 UNIT/ML SYR SQ ONE (13:30)
[2022-01-07 14:09] LABS: Glucose,Whole Blood 349 mg/dL (75-99)
[2022-01-07 14:33] VITALS: BP 91/49; PULSE 54; TEMP 98.3
--- NOTE | 2022-01-08 00:40 | P.DS ---
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 The patient for discharge chronic kidney disease, stage III Cirrhosis status post TIPS, on waiting list for liver transplant at [facility] Pancytopenia, from chronic conditions GERD Fibromyalgia History ofcoronary artery disease chronic heart failure paroxysmal atrial fibrillation not on anticoagulation secondary to liver disease History of migraine Hyperlipidemia Hospital course: This is a pleasant 66 years old female with past medical history of diabetes mellitus on insulin pump, coronary artery disease, chronic heart failure, paroxysmal atrial fibrillation not on anticoagulation secondary to liver disease on the waiting list for liver transplant on [facility] in [place] ncytopenia, fibromyalgia, GERD , hyperlipidemia, migraine Patient presents because of hyperglycemia and nonfunctioning insulin pump machine for several weeks. She is to follow up with Dr. Gill but has not seen her a while, currently she is following up with [facility] in [place], and she is known to follow up with them as well. Also patient has been evaluated by fly rail operator for elevated troponin, echocardiogram showed preserved ejection fraction of 55-60% with [id number] mitral regurgitation cardiology already cleared her for discharge. Yesterday patient supposed to be discharged, her insulin pump was tried again but it was not working probably because the patient keep playing with its and messing with its function, so and discharge was held. Patient and her sisters were started to be discharged yesterday however they agreed to stay 1 more day until we start her on Levemir, it was started at 5 units daily and gradually increased to 10 units by the nighttime however this morning her glucose was still uncontrolled, it was more than 300 so Levemir was increased to 15 units, plus NovoLog (lispro) 3 units with meals plus NovoLog (lispro) sliding scale, patient and sister Ms. Chong informed and they agree with this dose and plant. Also instructed to monitor glucose 4 times a day, see discharge instructions. On the day of discharge patient remains asymptomatic, no chest pain or dyspnea, no abdominal pain, no diarrhea or vomiting, no urinary complaints, no fever. Patient has sisters want her to be discharged today anyway. Problems and management plan were discussed with the patient and he verbalized understanding and acceptance Patient was found stable and can be discharged home in guarded prognosis however he needs follow-up as an outpatient. Patient was instructed to follow up with PCP Dr. Underwood within one week and patient agrees Patient and sister were performed to follow up with dry house worker Dr. Gill in one week and they agree Physical exam Gen: patient is a AAOx3, no distress CVS: S1-S2, RRR, no murmur Lungs: B/L CTA, no wheezing Abdomen: soft, no distention, no tenderness, positive bowel sounds Extremity: no leg edema or induration Time spent more than 35 minutes Assessment: Insulin-dependent Type 2 diabetes with hyperglycemia Elevated troponin, rule out ACS chronic kidney disease, stage III Cirrhosis status post TIPS Pancytopenia, from chronic conditions GERD Fibromyalgia History of heart failure and coronary artery disease Health Concerns: multiple comorbidities Patient Condition at Discharge: Fair Plan - Discharge Summary Discharge Rx Participant: No New Discharge Prescriptions: New Insulin Detemir (Levemir) [Levemir] 15 unit SQ DAILY@0700 30 Days #10 ml Metoprolol Tartrate [Lopressor] 25 mg PO BID 30 Days #60 tab INSULIN ASPART (NovoLOG) [NovoLOG (formulary)] See Protocol SQ ACHS 30 Days #10 ml INSULIN ASPART (NovoLOG) [NovoLOG (formulary)] 3 unit SQ AC-TID 30 Days #10 ml Continue Ezetimibe [Zetia] 10 mg PO DAILY Sertraline [Zoloft] 25 mg PO DAILY Lactulose 20 gm PO DAILY Atorvastatin [Lipitor] 40 mg PO HS Vitamin A Acetate [Vitamin A] 20,000 unit SL DAILY Potassium Chloride ER [K-Dur 20] 20 meq PO DAILY Midodrine HCl [ProAmatine] 10 mg PO BID Pantoprazole Sodium [Protonix] 40 mg PO DAILY Furosemide [Lasix] 20 mg PO BID Montelukast [Singulair] 10 mg PO HS Cholecalciferol [Vitamin D3 (125 Mcg = 5000 Iu)] 125 mcg PO DAILY Zinc 50 mg PO DAILY 90 Days #90 tab Discontinued INSULIN LISPRO (For Pump) [humaLOG (For Pump)] 0.01 units SQ-PUMP CONTINUOUS Rifaximin [Xifaxan] 550 mg PO BID Discharge Medication List Ezetimibe [Zetia] 10 mg PO DAILY 09/04/16 [History] Sertraline [Zoloft] 25 mg PO DAILY 01/12/17 [History] Lactulose 20 gm PO DAILY 08/22/18 [History] Atorvastatin [Lipitor] 40 mg PO HS 02/03/20 [History] Vitamin A Acetate [Vitamin A] 20,000 unit SL DAILY 02/03/20 [History] Potassium Chloride ER [K-Dur 20] 20 meq PO DAILY 06/24/20 [History] Midodrine HCl [ProAmatine] 10 mg PO BID 03/15/21 [History] Pantoprazole Sodium [Protonix] 40 mg PO DAILY 03/15/21 [History] Furosemide [Lasix] 20 mg PO BID 07/25/21 [History] Zinc 50 mg PO DAILY 90 Days #90 tab 07/28/21 [Rx] Cholecalciferol [Vitamin D3 (125 Mcg = 5000 Iu)] 125 mcg PO DAILY 01/03/22 [History] Montelukast [Singulair] 10 mg PO HS 01/03/22 [History] Metoprolol Tartrate [Lopressor] 25 mg PO BID 30 Days #60 tab 01/05/22 [Rx] INSULIN ASPART (NovoLOG) [NovoLOG (formulary)] 3 unit SQ AC-TID 30 Days #10 ml 01/07/22 [Rx] INSULIN ASPART (NovoLOG) [NovoLOG (formulary)] See Protocol SQ ACHS 30 Days #10 ml 01/07/22 [Rx] Insulin Detemir (Levemir) [Levemir] 15 unit SQ DAILY@0700 30 Days #10 ml 01/07/22 [Rx] Follow up Appointment(s)/Referral(s): Dario Underwood MD [Primary Care Provider] - 1-2 days [facility], [NON-STAFF] - As Needed Shanta Gill MD [STAFF PHYSICIAN] - 1 Week (dry house worker ) Charlie Orona MD [STAFF PHYSICIAN] - 2 Weeks Patient Instructions/Handouts: Insulin Scale A (MPH) Activity/Diet/Wound Care/Special Instructions: Monitor pump daily to ensure basal dose is running. heart healthy low carbohydrate diet 1600 kcal per day activity is restricted till you see your doctor we recommend to check your glucose 4 times daily , before each meal and at bed time, keep the results in a log book and bring it to your doctor on your appointment date if your glucose is less than 70 or more than 400 then call 911 and come to emergency room Discharge Disposition: HOME SELF-CARE
[2022-01-08] MEDS ORDERED: INSULIN DETEMIR (LEVEMIR) 100 UNIT/ML SYR SQ SCH (07:00)
== END 2022-01-07 15:04 | disposition home or self-care (01) | DRG 638 ==
LOC: EC 14:41 → 3SCARD 22:23
PROVIDERS: ADMIT Family Medicine; ATTEND Family Medicine
DX: E11.65 Type 2 diabetes mellitus with hyperglycemia (principal); D61.818 Other pancytopenia; I85.10 Secondary esophageal varices without bleeding; N39.0 Urinary tract infection, site not specified; I31.3 Pericardial effusion (noninflammatory); T85.614A Breakdown (mechanical) of insulin pump, initial encounter; E11.22 Type 2 diabetes mellitus with diabetic chronic kidney disease; E78.5 Hyperlipidemia, unspecified; K70.30 Alcoholic cirrhosis of liver without ascites; N18.30 Chronic kidney disease, stage 3 unspecified; G43.909 Migraine, unspecified, not intractable, without status migrainosus; I25.10 Atherosclerotic heart disease of native coronary artery without angina pectoris; R79.89 Other specified abnormal findings of blood chemistry; Y74.2 Prosthetic and other implants, materials and accessory general hospital and personal-use devices associated with adverse incidents; I48.0 Paroxysmal atrial fibrillation; I49.3 Ventricular premature depolarization; I50.9 Heart failure, unspecified; K21.9 Gastro-esophageal reflux disease without esophagitis; M79.7 Fibromyalgia; Z79.82 Long term (current) use of aspirin; Z79.899 Other long term (current) drug therapy; Z80.3 Family history of malignant neoplasm of breast; Z80.8 Family history of malignant neoplasm of other organs or systems; Z82.49 Family history of ischemic heart disease and other diseases of the circulatory system; Z85.41 Personal history of malignant neoplasm of cervix uteri; Z87.891 Personal history of nicotine dependence; Z90.710 Acquired absence of both cervix and uterus; Z96.41 Presence of insulin pump (external) (internal); Z88.2 Allergy status to sulfonamides; Z91.041 Radiographic dye allergy status; Z88.0 Allergy status to penicillin; Z91.013 Allergy to seafood; Z98.51 Tubal ligation status; Z88.1 Allergy status to other antibiotic agents
CPT/HCPCS: 36415; 71045; 80053; 80061; 81001; 82009; 83036; 83735; 84484; 85025; 85027; 85610; 85730; 87040; 87086; 93005; 93306; 94760; 96361; 96365; 96366; 96367; 96376; 99285

== ENCOUNTER 2022-07-08 18:51 | Emergency (ER) | payer MEDICARE ==
[2022-07-08] MEDS ORDERED: MORPHINE SULFATE 4 MG/ML SYRINGE IM STA (20:46)
--- NOTE | 2022-07-08 20:50 | ED ---
Fall HPI - General Chief Complaint: Fall Stated Complaint: fall 07.07.22 - pain everywhere Time Seen by Provider: 07/08/22 20:38 Source: patient Mode of arrival: wheelchair - History of Present Illness Initial Comments: This is a well-appearing 67-year-old alert and oriented 4 presents after slip and fall on ice cubes and water yesterday evening landing on her right arm. She has had increased pain and bruising to her upper right arm since. She does have a history of stage IV liver disease, renal disease, diabetes, coronary artery disease and fibromyalgia. MD Complaint: fall -: days(s) (1) Fall From: standing When Fall Occurred: 24 hours [employer] Loss of Consciousness: none Prolonged Down Time?: no Symptoms Prior to Fall: none Severity scale (1-10): 9 Context: tripped/slipped Associated Symptoms: denies - Related Data Home Medications Medication Instructions Recorded Confirmed Ezetimibe [Zetia] 10 mg PO DAILY 09/04/16 01/03/22 Sertraline [Zoloft] 25 mg PO DAILY 01/12/17 01/03/22 Lactulose 20 gm PO DAILY 08/22/18 01/03/22 Atorvastatin [Lipitor] 40 mg PO HS 02/03/20 01/03/22 Vitamin A Acetate [Vitamin A] 20,000 unit SL DAILY 02/03/20 01/03/22 Potassium Chloride ER [K-Dur 20] 20 meq PO DAILY 06/24/20 01/03/22 Midodrine HCl [ProAmatine] 10 mg PO BID 03/15/21 01/03/22 Pantoprazole Sodium [Protonix] 40 mg PO DAILY 03/15/21 01/03/22 Furosemide [Lasix] 20 mg PO BID 07/25/21 01/03/22 Cholecalciferol [Vitamin D3 (125 125 mcg PO DAILY 01/03/22 01/03/22 Mcg = 5000 Iu)] Montelukast [Singulair] 10 mg PO HS 01/03/22 01/03/22 Previous Rx's Medication Instructions Recorded Zinc 50 mg PO DAILY 90 Days #90 tab 07/28/21 Metoprolol Tartrate [Lopressor] 25 mg PO BID 30 Days #60 tab 01/05/22 INSULIN ASPART (NovoLOG) [NovoLOG 3 unit SQ AC-TID 30 Days #10 ml 01/07/22 (formulary)] INSULIN ASPART (NovoLOG) [NovoLOG See Protocol SQ ACHS 30 Days #10 ml 01/07/22 (formulary)] Insulin Detemir (Levemir) [Levemir] 15 unit SQ DAILY@0700 30 Days #10 01/07/22 ml HYDROcodone/APAP 5-325MG [Champlain 1 tab PO Q6HR PRN 3 Days #12 tab 07/08/22 5-325] Allergies Allergy/AdvReac Type Severity Reaction Status Date / Time doxycycline Allergy Rash/Hives Verified 07/08/22 19:17 iodine Allergy Rash/Hives Verified 07/08/22 19:17 Penicillins Allergy Rash/Hives Verified 07/08/22 19:17 shellfish derived Allergy Rash/Hives Verified 07/08/22 19:17 Sulfa (Sulfonamide Allergy Rash/Hives Verified 07/08/22 19:17 Antibiotics) venom-honey bee Allergy Anaphylaxis Verified 07/08/22 19:17 [bee venom (honey bee)] Review of Systems ROS Statement: Those systems with pertinent positive or pertinent negative responses have been documented in the HPI. ROS Other: All systems not noted in ROS Statement are negative. Past Medical History Past Medical History: Coronary Artery Disease (CAD), Cancer, Chest Pain / Angina, Heart Failure, Diabetes Mellitus, Fibromyalgia, GERD/Reflux, Hyperlipidemia, Liver Disease, Renal Disease, Skin Disorder Additional Past Medical History / Comment(s): Non-ETOH cirrhosis, ascities, esophageal varices, pancytopenia, thrombycytopenia, anemia, IDDM with insulin pump, several nodules both lungs being monitored, urinary leakage at times and pt states she has diarrhea much of the time, psoriasis, cervical cancer, pt states 2 blockages in back of heart, awaiting liver transplant at [facility] in [place]. hx migraines, 2 seizures post back surgery, hiatal hernia, patient is undergoing work up for a possible TIPS at [facility] History of Any Multi-Drug Resistant Organisms: None Reported Past Surgical History: Back Surgery, Breast Surgery, Cholecystectomy, Heart Catheterization, Hysterectomy, Orthopedic Surgery, Tonsillectomy, Tubal Ligation Additional Past Surgical History / Comment(s): multi large volume Paracentesis, EGD with banded esophageal varices, colonoscopies, bilateral rotator cuff repairs, bilateral breast bx-benign, back surgery in 2014, TIPS Past Anesthesia/Blood Transfusion Reactions: Previous Problems w/ Anesthesia, Family History of Problems w/ Anesthesia, Motion Sickness Additional Past Anesthesia/Blood Transfusion Reaction / Comment(s): difficulty breathing when coming out of anesthesia; difficulty waking up. Hypotension with general anesthesia. blood transfusions without reaction. sister- slow coming out and PONV Past Psychological History: No Psychological Hx Reported Smoking Status: Former smoker Past Alcohol Use History: None Reported Past Drug Use History: None Reported - Past Family History Mother Family Medical History: Cancer Additional Family Medical History / Comment(s): skin cancer. Father Family Medical History: Coronary Artery Disease (CAD) Additional Family Medical History / Comment(s): cabg/pacemaker Brother(s) Family Medical History: Cancer Sister(s) Family Medical History: Cancer, Deep Vein Thrombosis (DVT) Additional Family Medical History / Comment(s): Breast CA. General Exam Limitations: no limitations General appearance: alert, in no apparent distress Head exam: Present: atraumatic, normocephalic, normal inspection Eye exam: Present: EOMI, scleral icterus. Absent: conjunctival injection, nystagmus, periorbital swelling, periorbital tenderness Neck exam: Present: full ROM. Absent: tenderness, meningismus, lymphadenopathy, thyromegaly Respiratory exam: Present: normal lung sounds bilaterally. Absent: respiratory distress, wheezes, rales, rhonchi, stridor, chest wall tenderness, accessory muscle use Cardiovascular Exam: Present: regular rate GI/Abdominal exam: Present: soft Extremities exam: Present: normal capillary refill Right Shoulder Exam: Present: tenderness Upper Arm exam: Present: tenderness, swelling, ecchymosis. Absent: full ROM, abrasion, laceration, deformity, dislocation, erythema Elbow exam: Present: tenderness, ecchymosis, pain w/ pronation/supination. Absent: full ROM, abrasion, effusion, tenderness over radial head Forearm Wrist exam: Absent: tenderness, swelling Hand Wrist exam: Present: full ROM. Absent: tenderness, swelling Neurosensory exam: Present: radial nerve intact, ulnar nerve intact, median nerve intact Vascular: Present: normal capillary refill, radial pulse. Absent: vascular compromise Neurological exam: Present: alert, oriented X3 Psychiatric exam: Present: normal affect, normal mood Skin exam: Present: warm, dry, normal color. Absent: cyanosis, diaphoretic, petechiae, pallor Course Vital Signs 07/08/22 07/08/22 19:17 22:50 Temperature 98.1 F 97.8 F Pulse Rate 79 85 Respiratory 16 18 Rate Blood Pressure 110/39 125/43 O2 Sat by Pulse 97 90 L Oximetry Medical Decision Making - Medical Decision Making X-ray of the right elbow negative for fracture. X-ray of the right humerus shows a comminuted humeral neck fracture without significant displacement. Patient is neurovascularly intact. Patient was placed in a sling. Case discussed with Dr. Izaguirre who was agreeable to prescribing a short course of Champlain as needed for pain despite liver and kidney disease. orthopedic referral given Disposition Clinical Impression: Fracture of neck of humerus Disposition: HOME SELF-CARE Condition: Good Instructions (If sedation given, give patient instructions): Arm Fracture in Adults (ED), How to Use a Sling (ED), Proximal Humerus Fracture (ED) Additional Instructions: Wear sling until seen by orthopedics. Take pain medication as needed. Return to the emergency room with any new or concerning symptoms. Prescriptions: HYDROcodone/APAP 5-325MG [Champlain 5-325] 1 tab PO Q6HR PRN 3 Days #12 tab PRN Reason: Pain Is patient prescribed a controlled substance at d/c from ED?: Yes When asked, does pt state using other controlled substances?: No If prescribed controlled substance>3 days was MAPS reviewed?: Prescribed <3 Days If opioid is for acute pain is fill amount 7 days or less?: Yes If Rx opioid, was Start Talking consent form obtained?: Yes Referrals: Dario Underwood MD [Primary Care Provider] - 1-2 days Herb Watson PAC [PHYSICIAN [employer]] - 1-2 days Time of Disposition: 22:31
--- NOTE | 2022-07-08 21:43 | XR ---
EXAMINATION TYPE: XR shoulder complete RT DATE OF EXAM: 07/08/2022 COMPARISON: NONE HISTORY: Pain TECHNIQUE: 3 views FINDINGS: There is comminuted fracture of the right humeral neck. Fracture line extends into the grea ter tuberosity of the humerus. No dislocation. Scapula is intact. AC joint is intact. There is pleura l thickening at the right lung base. IMPRESSION: Comminuted humeral neck fracture without significant displacement.
--- NOTE | 2022-07-08 21:50 | XR ---
EXAMINATION TYPE: XR humerus RT DATE OF EXAM: 07/08/2022 COMPARISON: NONE HISTORY: Pain TECHNIQUE: 2 views right humerus FINDINGS: There is comminuted fracture of the humeral neck. Elbow joint is partly visualized and appe ars intact. There is no dislocation at the shoulder joint. IMPRESSION: Comminuted humeral neck fracture without significant displacement.
--- NOTE | 2022-07-08 21:51 | XR ---
EXAMINATION TYPE: XR elbow limited RT DATE OF EXAM: 07/08/2022 COMPARISON: NONE HISTORY: Pain. Fall TECHNIQUE: 3 views FINDINGS: I see no fracture nor dislocation. Radial head is intact. Elbow joint spaces are fairly nor mal. No sign of elbow joint effusion. IMPRESSION: Negative right elbow exam. No fracture seen.
[2022-07-08 22:59] VITALS: BP 125/43; PULSE 85; RESP 18; TEMP 97.8
== END 2022-07-08 22:50 | disposition home or self-care (01) ==
LOC: EC 18:51
DX: S42.201A Unspecified fracture of upper end of right humerus, initial encounter for closed fracture (principal); I25.10 Atherosclerotic heart disease of native coronary artery without angina pectoris; E11.9 Type 2 diabetes mellitus without complications; I50.9 Heart failure, unspecified; Z87.891 Personal history of nicotine dependence; E78.5 Hyperlipidemia, unspecified; Z79.899 Other long term (current) drug therapy; Z79.4 Long term (current) use of insulin; Z91.041 Radiographic dye allergy status; Z88.0 Allergy status to penicillin; Z91.013 Allergy to seafood; Z88.2 Allergy status to sulfonamides; Z88.1 Allergy status to other antibiotic agents; Z91.030 Bee allergy status; W01.0XXA Fall on same level from slipping, tripping and stumbling without subsequent striking against object, initial encounter
CPT/HCPCS: 96372; 99284; 73030; 73060; 73070; J2270

== ENCOUNTER → 2022-08-01 | Outpatient (CLI) | payer MEDICARE ==
[2022-08-01 20:33] LABS: Urine Creatinine 60.2 mg/dL (28.0-217.0)
[2022-08-01 20:56] LABS: ALT 23 U/L (8-44); AST 31 U/L (13-35); Albumin 3.2 g/dL (3.8-4.9); Albumin/Globulin Ratio 1.14 (1.60-3.17); Alkaline Phosphatase 157 U/L (41-126); BUN/Creat Ratio 18.06 Ratio (12.00-20.00); Blood Urea Nitrogen 30.7 mg/dL (9.0-27.0); Calcium 8.3 mg/dL (8.7-10.3); Carbon Dioxide 15.7 mmol/L (20.0-27.5); Chloride 111 mmol/L (96-109); Globulin 2.8 g/dL (1.6-3.3); Glucose 140 mg/dL (70-110); Non-African American GFR(CKD) 30.2 (60.0-200.0); Potassium 4.2 mmol/L (3.5-5.5); Sodium 138 mmol/L (135-145)
[2022-08-01 20:57] LABS: Chol/HDL Ratio 2.12 Ratio; LDL Cholesterol,Calculated 24.5 mg/dL (0.0-131.0); VLDL Calculation 10.92 mg/dL (5.00-40.00)
== END | disposition home or self-care (01) ==
LOC: LABWHC1 10:46
PROVIDERS: ATTEND Internal Medicine Endocrinology, Diabetes & Metabolism
DX: E11.65 Type 2 diabetes mellitus with hyperglycemia (principal)
CPT/HCPCS: 36415; 80053; 80061; 82043; 82570; 83036; 84443

== ENCOUNTER 2022-08-10 19:22 | Inpatient (IN) | payer MEDICARE ==
[2022-08-10] MEDS ORDERED: IPRATROPIUM-ALBUTEROL 3 ML NEB INHALATION STA (19:28)
[2022-08-10] MEDS ORDERED: methylPREDNISolone SOD SUCCI 125 MG/2 ML VIAL IV STA (19:31)
[2022-08-10] MEDS ORDERED: FUROSEMIDE 10 MG/ML 4 ML VIAL IV STA (19:31)
--- NOTE | 2022-08-10 19:36 | ED ---
SOB HPI - General Chief Complaint: Shortness of Breath Stated Complaint: NEPTALI Time Seen by Provider: 08/10/22 19:29 Source: EMS, RN notes reviewed, old records reviewed Mode of arrival: EMS - History of Present Illness Initial Comments: 66-year-old female with a history of multiple medical issues including nonalcoholic related cirrhosis of the liver ED who was brought in by EMS. He 1 due to acute respiratory distress. This apparently started earlier today he has progressed patient is also been confused no reports of trauma no reports of fevers chills nausea vomiting sweats. Patient is unable to give a good history. Per paramedics patient was noted to be edematous. MD Complaint: shortness of breath - Related Data Home Medications Medication Instructions Recorded Confirmed Ezetimibe [Zetia] 10 mg PO DAILY 09/04/16 08/10/22 Sertraline [Zoloft] 25 mg PO DAILY 01/12/17 08/10/22 Atorvastatin [Lipitor] 40 mg PO HS 02/03/20 08/10/22 Vitamin A Acetate [Vitamin A] 20,000 unit SL DAILY 02/03/20 08/10/22 Potassium Chloride ER [K-Dur 20] 20 meq PO DAILY 06/24/20 08/10/22 Midodrine HCl [ProAmatine] 10 mg PO BID 03/15/21 08/10/22 Pantoprazole Sodium [Protonix] 40 mg PO DAILY 03/15/21 08/10/22 Furosemide [Lasix] 40 mg PO DAILY 07/25/21 08/10/22 Montelukast [Singulair] 10 mg PO HS 01/03/22 08/10/22 INSULIN LISPRO (humaLOG) [humaLOG] See Protocol SQ ACHS 08/10/22 08/10/22 Insulin Detemir (Levemir) [Levemir] 24 unit SQ DAILY 08/10/22 08/10/22 Lactulose [Constulose] 20 gm PO DAILY 08/10/22 08/10/22 Metoprolol Tartrate [Lopressor] 25 mg PO DAILY 08/10/22 08/10/22 Rifaximin [Xifaxan] 550 mg PO BID 08/10/22 08/10/22 calcitrioL [Rocaltrol] 0.25 mcg PO MO 08/10/22 08/10/22 Allergies Allergy/AdvReac Type Severity Reaction Status Date / Time doxycycline Allergy Rash/Hives Verified 07/08/22 19:17 iodine Allergy Rash/Hives Verified 07/08/22 19:17 Penicillins Allergy Rash/Hives Verified 07/08/22 19:17 shellfish derived Allergy Rash/Hives Verified 07/08/22 19:17 Sulfa (Sulfonamide Allergy Rash/Hives Verified 07/08/22 19:17 Antibiotics) venom-honey bee Allergy Anaphylaxis Verified 07/08/22 19:17 [bee venom (honey bee)] Review of Systems ROS Statement: Those systems with pertinent positive or pertinent negative responses have been documented in the HPI. ROS Other: All systems not noted in ROS Statement are negative. Limitations: ROS unobtainable due to patients medical condition Past Medical History Past Medical History: Coronary Artery Disease (CAD), Cancer, Chest Pain / Angina, Heart Failure, Diabetes Mellitus, Fibromyalgia, GERD/Reflux, Hyperlipidemia, Liver Disease, Renal Disease, Skin Disorder Additional Past Medical History / Comment(s): Non-ETOH cirrhosis, ascities, esophageal varices, pancytopenia, thrombycytopenia, anemia, IDDM with insulin pump, several nodules both lungs being monitored, urinary leakage at times and pt states she has diarrhea much of the time, psoriasis, cervical cancer, pt states 2 blockages in back of heart, awaiting liver transplant at [facility] in [place]. hx migraines, 2 seizures post back surgery, hiatal hernia, patient is undergoing work up for a possible TIPS at [facility] History of Any Multi-Drug Resistant Organisms: None Reported Past Surgical History: Back Surgery, Breast Surgery, Cholecystectomy, Heart Catheterization, Hysterectomy, Orthopedic Surgery, Tonsillectomy, Tubal Ligation Additional Past Surgical History / Comment(s): multi large volume Paracentesis, EGD with banded esophageal varices, colonoscopies, bilateral rotator cuff repairs, bilateral breast bx-benign, back surgery in 2014, TIPS Past Anesthesia/Blood Transfusion Reactions: Previous Problems w/ Anesthesia, Family History of Problems w/ Anesthesia, Motion Sickness Additional Past Anesthesia/Blood Transfusion Reaction / Comment(s): difficulty breathing when coming out of anesthesia; difficulty waking up. Hypotension with general anesthesia. blood transfusions without reaction. sister- slow coming out and PONV Past Psychological History: No Psychological Hx Reported Smoking Status: Former smoker Past Alcohol Use History: None Reported Past Drug Use History: None Reported - Past Family History Mother Family Medical History: Cancer Additional Family Medical History / Comment(s): skin cancer. Father Family Medical History: Coronary Artery Disease (CAD) Additional Family Medical History / Comment(s): cabg/pacemaker Brother(s) Family Medical History: Cancer Sister(s) Family Medical History: Cancer, Deep Vein Thrombosis (DVT) Additional Family Medical History / Comment(s): Breast CA. General Exam - General Exam Comments Initial Comments: This is a well-developed well-nourished lethargic female in respiratory distress Limitations: altered mental status General appearance: lethargic Head exam: Present: atraumatic, normocephalic, normal inspection Eye exam: Present: normal appearance, PERRL, EOMI. Absent: scleral icterus, conjunctival injection, periorbital swelling ENT exam: Present: mucous membranes dry Neck exam: Present: normal inspection, full ROM, other. Absent: tenderness, meningismus, lymphadenopathy Respiratory exam: Present: wheezes, rales (No surgery or bruits), accessory muscle use, decreased breath sounds. Absent: respiratory distress, rhonchi, stridor Cardiovascular Exam: Present: regular rate, normal rhythm, normal heart sounds. Absent: systolic murmur, diastolic murmur, rubs, gallop, clicks GI/Abdominal exam: Present: soft, distended, normal bowel sounds. Absent: tenderness, guarding, rebound, rigid Rectal exam: Present: deferred Extremities exam: Present: normal inspection, full ROM, normal capillary refill, pedal edema (Edema to both lower extremities also the upper extremities.). Absent: tenderness, joint swelling, calf tenderness Back exam: Present: normal inspection Neurological exam: Present: alert, altered, CN II-XII intact Psychiatric exam: Present: agitated Skin exam: Present: warm, dry, intact, normal color. Absent: rash Course Vital Signs 08/10/22 08/10/22 08/10/22 19:24 19:30 19:32 Temperature 97.8 F Pulse Rate 98 47 L Respiratory 38 H 42 H Rate Blood Pressure 111/46 O2 Sat by Pulse 88 L 100 Oximetry Fraction of Inspired Oxygen (FIO2) 08/10/22 08/10/22 08/10/22 19:46 20:13 20:15 Temperature Pulse Rate Respiratory Rate Blood Pressure O2 Sat by Pulse Oximetry Fraction of 100 100 100 Inspired Oxygen (FIO2) 08/10/22 20:36 Temperature Pulse Rate Respiratory Rate Blood Pressure O2 Sat by Pulse Oximetry Fraction of 80 Inspired Oxygen (FIO2) Procedures - Intubation Paralytic: Succinylcholine Mg Given: 100 Laryngoscope: Yanez Size: 3 ET Tube Size: 7.5 ET Tube Uncuffed: No (cuffed) Tube Secured Depth (cm): 23 Tube Secured Location: lips Tube Placement Confirmation: visualized tube passing through cords, equal breath sounds bilaterally, confirmation by capnometry Patient Tolerated Procedure: well Intubation Complications: none Medical Decision Making - Medical Decision Making Patient presented with complaints of difficulty breathing which progressed throughout the day after a short course of attempted CPAP with other measures she did fail he remained very to Neck with impending respiratory failure she did require oral tracheal intubation. Patient was successfully intubated. She was placed on sedation and she was admitted to the intensive care unit after discussion with the Dr. Louie. Patient was given a dose of IV sodium bicarb. I did discuss findings the patient's family. - Lab Data Result diagrams: 08/10/22 19:39 08/10/22 19:39 Lab Results 08/10/22 08/10/22 08/10/22 Range/Units 19:39 19:39 19:39 WBC 15.1 H (3.8-10.6) k/uL RBC 2.85 L (3.80-5.40) m/uL Hgb 7.8 L (11.4-16.0) gm/dL Hct 27.0 L (34.0-46.0) % MCV 94.8 (80.0-100.0) fL MCH 27.3 (25.0-35.0) pg MCHC 28.8 L (31.0-37.0) g/dL RDW 16.7 H (11.5-15.5) % Plt Count 91 L (150-450) k/uL MPV 14.2 Neutrophils % (Manual) 86 % Band Neuts % (Manual) 6 % Lymphocytes % (Manual) 6 % Monocytes % (Manual) 2 % Neutrophils # (Manual) 13.80 H (1.3-7.7) k/uL Lymphocytes # (Manual) 0.91 L (1.0-4.8) k/uL Monocytes # (Manual) 0.30 (0-1.0) k/uL Nucleated RBCs 0 (0-0) /100 WBC Manual Slide Review Performed Large Platelets Present Hypochromasia Marked Hypochromasia (manual) Present Poikilocytosis Moderate Anisocytosis Slight Anisocytosis (manual) Present PT 16.6 H (9.0-12.0) sec INR 1.6 H (<1.2) APTT 29.7 (22.0-30.0) sec Sample Site ABG pH (7.35-7.45) ABG pCO2 (35-45) mmHg ABG pO2 (83-108) mmHg ABG HCO3 (21-25) mmol/L ABG Total CO2 (19-24) mmol/L ABG O2 Saturation (94-97) % ABG Base Excess mmol/L Mao Test FiO2 % Sodium 138 (137-145) mmol/L Potassium 4.5 (3.5-5.1) mmol/L Chloride 110 H (98-107) mmol/L Carbon Dioxide 12 L (22-30) mmol/L Anion Gap 16 mmol/L BUN 39 H (7-17) mg/dL Creatinine 2.17 H (0.52-1.04) mg/dL Est GFR (CKD-EPI)AfAm 26 (>60 ml/min/1.73 sqM) Est GFR (CKD-EPI)NonAf 23 (>60 ml/min/1.73 sqM) Glucose 130 H (74-99) mg/dL Plasma Lactic Acid Juan (0.7-2.0) mmol/L Calcium 8.3 L (8.4-10.2) mg/dL Magnesium 2.4 H (1.6-2.3) mg/dL Total Bilirubin 2.8 H (0.2-1.3) mg/dL AST 42 H (14-36) U/L ALT 24 (4-34) U/L Alkaline Phosphatase 180 H (38-126) U/L Ammonia (<30) umol/L Troponin I (0.000-0.034) ng/mL NT-Pro-B Natriuret Pep pg/mL Total Protein 6.0 L (6.3-8.2) g/dL Albumin 3.0 L (3.5-5.0) g/dL Serum Alcohol <10 mg/dL 08/10/22 08/10/22 08/10/22 Range/Units 19:39 19:39 19:39 WBC (3.8-10.6) k/uL RBC (3.80-5.40) m/uL Hgb (11.4-16.0) gm/dL Hct (34.0-46.0) % MCV (80.0-100.0) fL MCH (25.0-35.0) pg MCHC (31.0-37.0) g/dL RDW (11.5-15.5) % Plt Count (150-450) k/uL MPV Neutrophils % (Manual) % Band Neuts % (Manual) % Lymphocytes % (Manual) % Monocytes % (Manual) % Neutrophils # (Manual) (1.3-7.7) k/uL Lymphocytes # (Manual) (1.0-4.8) k/uL Monocytes # (Manual) (0-1.0) k/uL Nucleated RBCs (0-0) /100 WBC Manual Slide Review Large Platelets Hypochromasia Hypochromasia (manual) Poikilocytosis Anisocytosis Anisocytosis (manual) PT (9.0-12.0) sec INR (<1.2) APTT (22.0-30.0) sec Sample Site ABG pH (7.35-7.45) ABG pCO2 (35-45) mmHg ABG pO2 (83-108) mmHg ABG HCO3 (21-25) mmol/L ABG Total CO2 (19-24) mmol/L ABG O2 Saturation (94-97) % ABG Base Excess mmol/L Mao Test FiO2 % Sodium (137-145) mmol/L Potassium (3.5-5.1) mmol/L Chloride (98-107) mmol/L Carbon Dioxide (22-30) mmol/L Anion Gap mmol/L BUN (7-17) mg/dL Creatinine (0.52-1.04) mg/dL Est GFR (CKD-EPI)AfAm (>60 ml/min/1.73 sqM) Est GFR (CKD-EPI)NonAf (>60 ml/min/1.73 sqM) Glucose (74-99) mg/dL Plasma Lactic Acid Juan 4.6 H* (0.7-2.0) mmol/L Calcium (8.4-10.2) mg/dL Magnesium (1.6-2.3) mg/dL Total Bilirubin (0.2-1.3) mg/dL AST (14-36) U/L ALT (4-34) U/L Alkaline Phosphatase (38-126) U/L Ammonia 53 H (<30) umol/L Troponin I 0.013 (0.000-0.034) ng/mL NT-Pro-B Natriuret Pep 27807 pg/mL Total Protein (6.3-8.2) g/dL Albumin (3.5-5.0) g/dL Serum Alcohol mg/dL 08/10/22 Range/Units 20:25 WBC (3.8-10.6) k/uL RBC (3.80-5.40) m/uL Hgb (11.4-16.0) gm/dL Hct (34.0-46.0) % MCV (80.0-100.0) fL MCH (25.0-35.0) pg MCHC (31.0-37.0) g/dL RDW (11.5-15.5) % Plt Count (150-450) k/uL MPV Neutrophils % (Manual) % Band Neuts % (Manual) % Lymphocytes % (Manual) % Monocytes % (Manual) % Neutrophils # (Manual) (1.3-7.7) k/uL Lymphocytes # (Manual) (1.0-4.8) k/uL Monocytes # (Manual) (0-1.0) k/uL Nucleated RBCs (0-0) /100 WBC Manual Slide Review Large Platelets Hypochromasia Hypochromasia (manual) Poikilocytosis Anisocytosis Anisocytosis (manual) PT (9.0-12.0) sec INR (<1.2) APTT (22.0-30.0) sec Sample Site L radial ABG pH 7.20 L (7.35-7.45) ABG pCO2 34 L (35-45) mmHg ABG pO2 195 H (83-108) mmHg ABG HCO3 14 L (21-25) mmol/L ABG Total CO2 15 L (19-24) mmol/L ABG O2 Saturation 100.0 H (94-97) % ABG Base Excess -14.5 mmol/L Mao Test Yes FiO2 100 % Sodium (137-145) mmol/L Potassium (3.5-5.1) mmol/L Chloride (98-107) mmol/L Carbon Dioxide (22-30) mmol/L Anion Gap mmol/L BUN (7-17) mg/dL Creatinine (0.52-1.04) mg/dL Est GFR (CKD-EPI)AfAm (>60 ml/min/1.73 sqM) Est GFR (CKD-EPI)NonAf (>60 ml/min/1.73 sqM) Glucose (74-99) mg/dL Plasma Lactic Acid Juan (0.7-2.0) mmol/L Calcium (8.4-10.2) mg/dL Magnesium (1.6-2.3) mg/dL Total Bilirubin (0.2-1.3) mg/dL AST (14-36) U/L ALT (4-34) U/L Alkaline Phosphatase (38-126) U/L Ammonia (<30) umol/L Troponin I (0.000-0.034) ng/mL NT-Pro-B Natriuret Pep pg/mL Total Protein (6.3-8.2) g/dL Albumin (3.5-5.0) g/dL Serum Alcohol mg/dL - EKG Data -: EKG Interpreted by Sc EKG shows normal: sinus rhythm EKG Comments: Sinus rhythm of 89 [place] interval 118 QRS duration 92 QT since QTC 377/[address] configuration - Radiology Data Radiology results: report reviewed (Image reviewed as well as report evidence of infiltrates consistent with a pneumonic process such as pneumonia clinically patient does demonstrate evidence of COPD exacerbation with CHF and right pleural effusion.), image reviewed Critical Care Time Critical Care Time: Yes Total Critical Care Time: 49 Critical Care Time: Critical care time includes initial presentation with history physical labs x- rays multiple reevaluation patient responsive therapy this does not include intubation time. Discussion with Dr. Alas and Dr. Louie also discussed with family members. Admission orders and documentation the above also includes review of old charting that was available Disposition Clinical Impression: Acute respiratory failure, Pneumonia, Congestive heart failure, Lactic acidosis, Anemia, Acute kidney injury Disposition: ADMITTED IP TO THIS [facility] Condition: Critical Referrals: Dario Underwood MD [Primary Care Provider] - 1-2 days Decision Date: 08/10/22 Decision Time: 21:38
[2022-08-10] MEDS ORDERED: NITROGLYCERIN OINT 1 INCH/GM PACKET TOPICAL STA (19:42)
[2022-08-10] MEDS ORDERED: LORazepam 2 MG/ML INJ IV STA ×2 (19:49→20:00)
[2022-08-10 19:53] LABS: Anisocytosis Slight; HGB 7.8 gm/dL (11.4-16.0); Hypochromasia Marked; MCH 27.3 pg (25.0-35.0); MCHC 28.8 g/dL (31.0-37.0); MCV 94.8 fL (80.0-100.0); Mean Platelet Volume 14.2; Platelet Count 91 k/uL (150-450); Poikilocytosis Moderate; RBC 2.85 m/uL (3.80-5.40); RDW 16.7 % (11.5-15.5); WBC 15.1 k/uL (3.8-10.6)
[2022-08-10] MEDS ORDERED: MORPHINE SULFATE 4 MG/ML SYRINGE IVP STA (19:55)
[2022-08-10] MEDS ORDERED: SUCCINYLCHOLINE CHLORIDE 200 MG/10 ML VIAL IV STA (20:03)
[2022-08-10 20:10] LABS: Potassium 4.5 mmol/L (3.5-5.1)
[2022-08-10 20:11] LABS: ALT 24 U/L (4-34); AST 42 U/L (14-36); African American GFR (CKD) 26 (>60 ml/min/1.73 sqM); Alcohol <10 mg/dL; Alkaline Phosphatase 180 U/L (38-126); Anion Gap 16 mmol/L; Blood Urea Nitrogen 39 mg/dL (7-17); Calcium 8.3 mg/dL (8.4-10.2); Carbon Dioxide 12 mmol/L (22-30); Chloride 110 mmol/L (98-107); Glucose 130 mg/dL (74-99); Magnesium 2.4 mg/dL (1.6-2.3); Non-African American GFR(CKD) 23 (>60 ml/min/1.73 sqM); Sodium 138 mmol/L (137-145); Total Bilirubin 2.8 mg/dL (0.2-1.3)
[2022-08-10 20:16] LABS: Lactic Acid, Venous 4.6 mmol/L (0.7-2.0)
[2022-08-10 20:31] LABS: ABG Base Excess -14.5 mmol/L; ABG HCO3 14 mmol/L (21-25); ABG PCO2 34 mmHg (35-45); ABG PO2 195 mmHg (83-108); ABG TCO2 15 mmol/L (19-24); Allen Test Performed? Yes
[2022-08-10] MEDS ORDERED: cefTRIAXone IN SWFI 1,000 MG/10 ML SYRINGE IVP STA (20:37)
[2022-08-10 20:38] LABS: Anisocytosis (M) Present; Band Neutrophils % 6 %; Lymphocytes # (M) 0.91 k/uL (1.0-4.8); Neutrophils % (M) 86 %; Nucleated Red Blood Cells 0 /100 WBC (0-0); Total Cells Counted 100
[2022-08-10 20:39] LABS: Hypochromasia (M) Present; Large Platelets Present
[2022-08-10 20:49] LABS: INR 1.6 (<1.2); Partial Thromboplastin Time 29.7 sec (22.0-30.0); Prothrombin Time 16.6 sec (9.0-12.0)
--- NOTE | 2022-08-10 21:02 | XR ---
EXAMINATION: XR chest 1V portable DATE AND TIME: 08/10/2022 7:49 PM CLINICAL INDICATION: Dyspnea TECHNIQUE: AP upright portable COMPARISON: 01/03/2022 FINDINGS: There are multifocal large ill-defined added opacities throughout the entirety of the right lung and involving the left suprahilar and left infrahilar lung. The pattern is consistent with a clinical boris gnosis of multifocal bronchopneumonia, with associated right pleural effusion. No pneumothorax or other abnormal gas collections evident. The cardiac silhouette is mildly enlarged, appearing similar to the prior study. The skeletal structures and soft tissues are negative for acute findings. IMPRESSION: Marked pulmonary/pleural abnormalities, right much greater than left.
--- NOTE | 2022-08-10 21:11 | XR ---
EXAMINATION: XR chest 1V confirm line [facility] DATE AND TIME: 08/10/2022 8:26 PM CLINICAL INDICATION: Post intubation TECHNIQUE: Departmental protocol COMPARISON: 08/10/2022 at 7:47 PM FINDINGS: Since prior study the patient has been intubated. ET tube tip is superimposed over the roxie, larry g toward the right mainstem bronchus. It may be better placed if withdrawn 2-3 cm. Multifocal bilateral lung parenchymal abnormalities are redemonstrated, consistent with a clinical di agnosis of multifocal bronchopneumonia. There is no evidence of pneumothorax on this supine radiograph. Small pleural effusions are noted bilaterally, greater on the right. The cardiac silhouette is enlarged, unchanged. The skeletal structures and soft tissues are negative for acute findings. IMPRESSION: ET tube placement.
--- NOTE | 2022-08-10 21:12 | XR ---
EXAMINATION: XR chest 1V confirm line [facility] DATE AND TIME: 08/10/2022 9:06 PM CLINICAL INDICATION: ET tube adjustment TECHNIQUE: Departmental protocol COMPARISON: 08/10/2022 at 8:18 PM. FINDINGS: Since the prior study the ET tube has been retracted and now lies over the mid trachea. IMPRESSION: Post-ET tube adjustment radiograph.
--- NOTE | 2022-08-10 21:14 | XR ---
EXAMINATION: XR chest 1V DATE AND TIME: 08/10/2022 9:04 PM CLINICAL INDICATION: PHH; NG TUBE ADJUSTMENT TECHNIQUE: Departmental protocol COMPARISON: 08/10/2022 at 8:59 PM. FINDINGS: Since the prior study the ET tube has been retracted and now lies over the mid trachea, at the level of the clavicular heads. NG tube tip superimposed over the gastric fundus. IMPRESSION: Post-ET tube adjustment radiograph.
--- NOTE | 2022-08-10 21:15 | XR ---
EXAMINATION: XR chest 1V portable DATE AND TIME: 08/10/2022 9:00 PM CLINICAL INDICATION: PHH; NG placement TECHNIQUE: Departmental protocol COMPARISON: 08/10/2022 at 9:00 PM FINDINGS: Since the prior study the NG tube has been retracted such that its tip lies over the mid thoracic eso phagus and its port lies just above the level of the roxie. The NG tube may be better placed if adva nced 15 cm. ET tube tip superimposed over the mid trachea at the clavicular head level. IMPRESSION: NG tube comments.
[2022-08-10] MEDS: DEXTROSE 5% IN WATER 1,000 ML with SODIUM BICARB (1 MEQ/ML) 100 ML IV SCH (21:35)
[2022-08-10] MEDS ORDERED: ARTIFICIAL TEARS OINTMENT 3.5 GM TUBE BOTH EYES PRN (21:39)
[2022-08-10] MEDS ORDERED: NALOXONE 0.4 MG/ML 1 ML VIAL IV PRN (21:39)
[2022-08-10] MEDS ORDERED: SODIUM CHLORIDE 0.9% 1,000 ML IV SCH (21:45)
[2022-08-10] MEDS ORDERED: ACETAMINOPHEN IV (For NPO) 1,000 MG in EMPTY BAG 1 BAG IVPB PRN (22:17)
[2022-08-11] MEDS ORDERED: PIPERACILLIN-TAZOBACTAM 3.375 GM in SODIUM CHLORIDE 0.9% 100 ML IVPB SCH (01:00)
[2022-08-11] MEDS: NOREPINEPHRINE 4 MG in SODIUM CHLORIDE 0.9% 250 ML IV SCH ×2 (01:20→15:43)
[2022-08-11] MEDS ORDERED: ALBUMIN HUMAN 25% (12.5gm) 50 ML VIAL ONE (01:30)
[2022-08-11 05:01] LABS: Glucose,Whole Blood 180 mg/dL (70-110)
[2022-08-11 05:01] LABS: Glucose,Whole Blood 172 mg/dL (70-110)
[2022-08-11] MEDS: CHLORHEXIDINE GLUCONATE 15 ML CUP MUCOUS MEM SCH ×3 (05:47→21:46)
[2022-08-11] MEDS: ALBUMIN HUMAN 25% 50 ML in EMPTY BAG 1 BAG IVPB SCH ×2 (05:49→05:50)
[2022-08-11] MEDS: PIPERACILLIN-TAZOBACTAM 3.375 GM in SODIUM CHLORIDE 0.9% 100 ML IVPB SCH ×2 (05:59→18:56)
[2022-08-11 06:15] LABS: Glucose,Whole Blood 238 mg/dL (70-110)
[2022-08-11 06:59] LABS: ABG PCO2 25 mmHg (35-45); ABG PH 7.34 (7.35-7.45); Allen Test Performed? Yes
[2022-08-11 07:00] LABS: ABG Base Excess -12.2 mmol/L; ABG HCO3 14 mmol/L (21-25); ABG PO2 87 mmHg (83-108); ABG TCO2 14 mmol/L (19-24)
[2022-08-11 07:21] LABS: Albumin 2.7 g/dL (3.5-5.0); Bilirubin, Conjugated 0.6 mg/dL (0.0-0.3); Calcium 7.7 mg/dL (8.4-10.2); Magnesium 2.2 mg/dL (1.6-2.3); Potassium 4.7 mmol/L (3.5-5.1); Total Bilirubin 2.6 mg/dL (0.2-1.3); Total Protein 5.1 g/dL (6.3-8.2)
[2022-08-11 07:31] LABS: Anisocytosis Slight; Basophils % (A) 0 %; Eosinophils % (A) 0 %; HCT 21.9 % (34.0-46.0); Hypochromasia Marked; Lymphocytes # (A) 0.3 k/uL (1.0-4.8); Lymphocytes % (A) 5 %; MCH 27.1 pg (25.0-35.0); MCHC 28.2 g/dL (31.0-37.0); MCV 96.1 fL (80.0-100.0); Mean Platelet Volume 11.1; Monocytes # (A) 0.2 k/uL (0-1.0); Monocytes % (A) 2 %; Neutrophils # (A) 6.1 k/uL (1.3-7.7); Neutrophils % (A) 92 %; Poikilocytosis Moderate; RBC 2.28 m/uL (3.80-5.40); RDW 16.6 % (11.5-15.5); WBC 6.7 k/uL (3.8-10.6)
[2022-08-11 07:38] LABS: HGB 6.2 gm/dL (11.4-16.0)
[2022-08-11 08:07] LABS: INR 1.7 (<1.2); Prothrombin Time 17.8 sec (9.0-12.0)
--- NOTE | 2022-08-11 08:07 | XR ---
EXAMINATION TYPE: XR chest 1V DATE OF EXAM: 08/11/2022 COMPARISON: Chest x-ray 08/10/2022 HISTORY: Intubated TECHNIQUE: Single frontal view of the chest is obtained. FINDINGS: Endotracheal tube and NG tube are overlying appropriate positions. Bilateral airspace dise ase is again seen, there is no evident pneumothorax or sizable effusion. Heart is enlarged. Patient i s rotated. There are overlying artifacts. IMPRESSION: Correlate for pneumonia versus congestive heart failure.
[2022-08-11] MEDS: PANTOPRAZOLE 40 MG/10 ML VIAL IV SCH (08:56)
[2022-08-11 09:26] LABS: Platelet Count 28 k/uL (150-450)
[2022-08-11 09:30] LABS: Polychromasia Present; Toxic Granulation Present
--- NOTE | 2022-08-11 09:45 | P.CNPUL ---
History of Present Illness Consult date: 08/11/22 Reason for consult: dyspnea, pneumonia History of present illness: This is a 67-year-old female patient with known history of nonalcoholic liver failure/cirrhosis. The patient has liver cirrhosis due to fatty liver/drug induced cirrhosis. The patient has been seen by the GI service at the [facility]. She underwent a TIPS procedures as the patient was requiring multiple episodes of paracentesis over the years. The patient has had previous episodes of massive GI bleed and this was secondary to portal hypertension and esophageal varices. Taking care of this patient in the past and the intensive care unit. My last encounter with her was in June 2021 and backbench I treated with shortness of breath and she had large bilateral pleural effusion and atelectasis and she was hypoxic and she was managed accordingly. The patient also has a long list of comorbid conditions Primus related to her liver cirrhosis. She is diabetic and she has known history of coronary artery disease. The patient came in yesterday to the emergency department with acute respiratory distress. This started a few days prior to her admission. She was confused and not a whole lot of history was obtained from her in the emergency. She was reporting no fever or chills. No aspiration. The patient was in significant distress. They tried on BiPAP initially and she failed and subsequently she got intubated and placed on a mechanical ventilator. Post intubation chest x-ray showed extensive bilateral lung consolidations more so on the right. A repeat chest x-ray was on this morning and it is humid and G-tube are again seen and the patient has extensive bilateral airspace disease seen. This morning, the patient is sedated with propofol running at 20 mcg/kg/m. She is on assist control of 28 with a tidal volume of 450 and FiO2 of 90% with a PEEP of 5. Her blood work from this morning shows a white cell count of 6.7 which dropped from 15.1. Hemoglobin is down to 6.2 from a baseline of 7.8 and a platelet count was 91,000 yesterday. Her INR today is 1.7 with a PT of 17.8. The patient also has a component of and I get metabolic acidosis with a gap of 16 at the time of admission, current serum bicarbs of 14 with a gap of 12 and sodium level of 136. Potassium level is at 4.7. Her lactic acid initially was 4.6-1.9. Her Calcium Is at 7.7. Bilirubin Is at 1. LFTs Are Normal. Serum Albumin Is at 2.7. Covid 19 Testing Was Negative. Influenza Screen Was Negative. Alcohol Level Was Negative. Most Recent Blood Gas Shows a pH of 7.34 with a PCO2 of 25 and PO2 of 87. She Was Borderline Hypotensive. She Was Given 2 Doses of Albumin Yesterday 25%. She Was Also Given a Bolus of Saline in the Emergency Department. The Bolus of Saline was in order of 500 mL. Currently she is on a bicarbonate infusion running at a rate of 100 mL an hour. Urine output is extremely low and order a fasting cc on an hourly basis. Antibiotic coverage was also provided and the patient was started on IV Zosyn. She is on pressors and this was started yesterday and norepinephrine is O- 0.06 mcg/kg/m. Review of Systems ROS unobtainable: due to endotracheal tube Past Medical History Past Medical History: Coronary Artery Disease (CAD), Cancer, Chest Pain / Angina, Heart Failure, Diabetes Mellitus, Fibromyalgia, GERD/Reflux, Hyperlipidemia, Liver Disease, Renal Disease, Skin Disorder Additional Past Medical History / Comment(s): Non-ETOH cirrhosis, ascities, esophageal varices, pancytopenia, thrombycytopenia, anemia, IDDM with insulin pump, several nodules both lungs being monitored, urinary leakage at times and pt states she has diarrhea much of the time, psoriasis, cervical cancer, pt states 2 blockages in back of heart, awaiting liver transplant at [facility] in [place]. hx migraines, 2 seizures post back surgery, hiatal hernia, patient is undergoing work up for a possible TIPS at [facility] History of Any Multi-Drug Resistant Organisms: None Reported Past Surgical History: Back Surgery, Breast Surgery, Cholecystectomy, Heart Catheterization, Hysterectomy, Orthopedic Surgery, Tonsillectomy, Tubal Ligation Additional Past Surgical History / Comment(s): multi large volume Paracentesis, EGD with banded esophageal varices, colonoscopies, bilateral rotator cuff repairs, bilateral breast bx-benign, back surgery in 2014, TIPS Past Anesthesia/Blood Transfusion Reactions: Previous Problems w/ Anesthesia, Family History of Problems w/ Anesthesia, Motion Sickness Additional Past Anesthesia/Blood Transfusion Reaction / Comment(s): difficulty breathing when coming out of anesthesia; difficulty waking up. Hypotension with general anesthesia. blood transfusions without reaction. sister- slow coming out and PONV Past Psychological History: No Psychological Hx Reported Smoking Status: Former smoker Past Alcohol Use History: None Reported Past Drug Use History: None Reported - Past Family History Mother Family Medical History: Cancer Additional Family Medical History / Comment(s): skin cancer. Father Family Medical History: Coronary Artery Disease (CAD) Additional Family Medical History / Comment(s): cabg/pacemaker Brother(s) Family Medical History: Cancer Sister(s) Family Medical History: Cancer, Deep Vein Thrombosis (DVT) Additional Family Medical History / Comment(s): Breast CA. Medications and Allergies Home Medications Medication Instructions Recorded Confirmed Type Ezetimibe [Zetia] 10 mg PO DAILY 09/04/16 08/10/22 History Sertraline [Zoloft] 25 mg PO DAILY 01/12/17 08/10/22 History Atorvastatin [Lipitor] 40 mg PO HS 02/03/20 08/10/22 History Vitamin A Acetate [Vitamin A] 20,000 unit SL DAILY 02/03/20 08/10/22 History Potassium Chloride ER [K-Dur 20] 20 meq PO DAILY 06/24/20 08/10/22 History Midodrine HCl [ProAmatine] 10 mg PO BID 03/15/21 08/10/22 History Pantoprazole Sodium [Protonix] 40 mg PO DAILY 03/15/21 08/10/22 History Furosemide [Lasix] 40 mg PO DAILY 07/25/21 08/10/22 History Montelukast [Singulair] 10 mg PO HS 01/03/22 08/10/22 History INSULIN LISPRO (humaLOG) [humaLOG] See Protocol SQ ACHS 08/10/22 08/10/22 History Insulin Detemir (Levemir) [Levemir] 24 unit SQ DAILY 08/10/22 08/10/22 History Lactulose [Constulose] 20 gm PO DAILY 08/10/22 08/10/22 History Metoprolol Tartrate [Lopressor] 25 mg PO DAILY 08/10/22 08/10/22 History Rifaximin [Xifaxan] 550 mg PO BID 08/10/22 08/10/22 History calcitrioL [Rocaltrol] 0.25 mcg PO MO 08/10/22 08/10/22 History Allergies Allergy/AdvReac Type Severity Reaction Status Date / Time doxycycline Allergy Rash/Hives Verified 07/08/22 19:17 iodine Allergy Rash/Hives Verified 07/08/22 19:17 Penicillins Allergy Rash/Hives Verified 07/08/22 19:17 shellfish derived Allergy Rash/Hives Verified 07/08/22 19:17 Sulfa (Sulfonamide Allergy Rash/Hives Verified 07/08/22 19:17 Antibiotics) venom-honey bee Allergy Anaphylaxis Verified 07/08/22 19:17 [bee venom (honey bee)] Physical Exam Vitals: Vital Signs Temp Pulse Pulse Resp BP BP Pulse Ox 08/11/22 09:00 70 28 H 99/43 98 08/11/22 08:00 98.2 F 71 28 H 99/42 98 08/11/22 07:34 08/11/22 07:00 75 30 H 104/44 96 08/11/22 06:00 75 29 H 102/45 95 08/10/22 22:40 80 17 108/44 08/10/22 21:30 84 24 104/39 98 08/10/22 21:20 83 22 102/42 98 08/10/22 21:10 86 24 103/44 98 08/10/22 21:00 87 22 93/38 98 08/10/22 20:51 87 26 H 93/38 99 08/10/22 20:36 08/10/22 20:15 08/10/22 20:13 08/10/22 19:46 08/10/22 19:32 47 L 08/10/22 19:30 42 H 100 08/10/22 19:24 97.8 F 98 38 H 111/46 88 L FiO2 08/11/22 09:00 08/11/22 08:00 90 08/11/22 07:34 90 08/11/22 07:00 90 08/11/22 06:00 90 08/10/22 22:40 08/10/22 21:30 08/10/22 21:20 08/10/22 21:10 08/10/22 21:00 08/10/22 20:51 08/10/22 20:36 80 08/10/22 20:15 100 08/10/22 20:13 100 08/10/22 19:46 100 08/10/22 19:32 08/10/22 19:30 08/10/22 19:24 Intake and Output 08/10/22 08/11/22 08/11/22 22:59 06:59 14:59 Intake Total 4.833 168.015 504.856 Output Total 5 10 Balance 4.833 163.015 494.856 Intake: IV 125 375 Sodium Bicarbonate 100 300 Zosyn 25 75 Intake, IV Titration 4.833 43.015 129.856 Amount Norepinephrine 4 mg In 19.182 93.252 Sodium Chloride 0.9% 250 ml @ 0.02 MCG/KG/MIN 6. 394 mls/hr IV .Q24H MACARIO Rx#:[id number] propofoL 1,000 mg In 4.833 Empty Bag 1 bag @ 15 MCG/ KG/MIN 7.552 mls/hr IV . [id number] [facility]ARIO Rx#:[id number] propofoL 1,000 mg In 23.833 36.604 Empty Bag 1 bag @ 15 MCG/ KG/MIN 7.552 mls/hr IV . [id number] [facility]ARIO Rx#:[id number] Output: Urine 5 10 Other: Weight 83.915 kg 86.4 kg Gen. appearance the patient currently intubated on a mechanical ventilator. She has an orogastric tube in place. There is also an NG tube in place. No evidence of any bleed from the NG tube. she is calm and comfortable and symptom is a mechanical ventilator. Head exam was generally normal. There was no scleral icterus or corneal arcus. Mucous membranes were moist. Neck was supple and without jugular venous distension, thyromegaly, or carotid bruits. Carotids were easily palpable bilaterally. There was no adenopathy. Lungs sounds are diminished in lung bases , otherwise breasts: Equal and symmetrical. scattered rhonchi. Scattered crackles in the mid and lower lung win. Heart sounds are regular and there is accentuation of the second heart sound, probably related to underlying pulmonary hypertension. Faint murmur systolic ejection murmur grade 2/6 is also appreciated. Abdomen is distended and the patient has underlying ascites. His fluid wave and shifting dullness. There is also some splenomegaly. No direct tenderness. No rebound tensile guarding. Patient has a small umbilical hernia. Extremities reviewed extensive amount of edema in all 4 extremities pressure in the legs. the patient has significant third spacing and edema at this point in time. Neurologically, the patient is sedated on propofol. she was also painful semination all 4 extremities. No facial asymmetry. positive cough. Positive gag. Pupils are equal reactive to light. motor functions [place] objectively assess. Sensory functions cannot be accurately assessed. Examination of the skin revealed no evidence of significant rashes, suspicious appearing nevi or other concerning lesions. Results - Laboratory Findings CBC and BMP: 08/11/22 06:50 08/11/22 06:50 ABG ABG pH 7.34 (7.35-7.45) L 08/11/22 06:02 ABG pCO2 25 mmHg (35-45) L 08/11/22 06:02 ABG pO2 87 mmHg (83-108) 08/11/22 06:02 ABG O2 Saturation 98.0 % (94-97) H 08/11/22 06:02 PT/INR, D-dimer PT 17.8 sec (9.0-12.0) H 08/11/22 06:50 INR 1.7 (<1.2) H 08/11/22 06:50 Abnormal lab findings: Abnormal Labs 08/10/22 08/10/22 08/10/22 19:39 19:39 19:39 WBC 15.1 H RBC 2.85 L Hgb 7.8 L Hct 27.0 L MCHC 28.8 L RDW 16.7 H Plt Count 91 L Neutrophils # (Manual) 13.80 H Lymphocytes # (Manual) 0.91 L PT 16.6 H INR 1.6 H ABG pH ABG pCO2 ABG pO2 ABG HCO3 ABG Total CO2 ABG O2 Saturation Sodium Chloride 110 H Carbon Dioxide 12 L BUN 39 H Creatinine 2.17 H Glucose 130 H POC Glucose (mg/dL) Plasma Lactic Acid Juan Calcium 8.3 L Magnesium 2.4 H Total Bilirubin 2.8 H Conjugated Bilirubin Delta Bilirubin AST 42 H Alkaline Phosphatase 180 H Ammonia Total Protein 6.0 L Albumin 3.0 L 08/10/22 08/10/22 08/10/22 19:39 20:25 22:54 WBC RBC Hgb Hct MCHC RDW Plt Count Neutrophils # (Manual) Lymphocytes # (Manual) PT INR ABG pH 7.20 L ABG pCO2 34 L ABG pO2 195 H ABG HCO3 14 L ABG Total CO2 15 L ABG O2 Saturation 100.0 H Sodium Chloride Carbon Dioxide BUN Creatinine Glucose POC Glucose (mg/dL) 180 H Plasma Lactic Acid Juan 4.6 H* Calcium Magnesium Total Bilirubin Conjugated Bilirubin Delta Bilirubin AST Alkaline Phosphatase Ammonia 53 H Total Protein Albumin 08/10/22 08/11/22 08/11/22 23:58 06:02 06:14 WBC RBC Hgb Hct MCHC RDW Plt Count Neutrophils # (Manual) Lymphocytes # (Manual) PT INR ABG pH 7.34 L ABG pCO2 25 L ABG pO2 ABG HCO3 14 L ABG Total CO2 14 L ABG O2 Saturation 98.0 H Sodium Chloride Carbon Dioxide BUN Creatinine Glucose POC Glucose (mg/dL) 172 H 238 H Plasma Lactic Acid Juan Calcium Magnesium Total Bilirubin Conjugated Bilirubin Delta Bilirubin AST Alkaline Phosphatase Ammonia Total Protein Albumin 08/11/22 08/11/22 08/11/22 06:50 06:50 06:50 WBC RBC 2.28 L Hgb 6.2 L* D Hct 21.9 L MCHC 28.2 L RDW 16.6 H Plt Count Neutrophils # (Manual) Lymphocytes # (Manual) PT 17.8 H INR 1.7 H ABG pH ABG pCO2 ABG pO2 ABG HCO3 ABG Total CO2 ABG O2 Saturation Sodium 136 L Chloride 110 H Carbon Dioxide 14 L BUN 42 H Creatinine 2.25 H Glucose 220 H POC Glucose (mg/dL) Plasma Lactic Acid Juan Calcium 7.7 L Magnesium Total Bilirubin 2.6 H Conjugated Bilirubin 0.6 H Delta Bilirubin 1.0 H AST Alkaline Phosphatase Ammonia Total Protein 5.1 L Albumin 2.7 L - Diagnostic Findings Chest x-ray: image reviewed Assessment and Plan Plan: acute hypoxic respiratory failure with extensive bilateral pulmonary infiltrates/pneumonia. rule out community-acquired pneumonia versus aspiration pneumonia. the patient has dense consolidations bilaterally right more than l eft. Currently she is intubated on a mechanical ventilator. acute hypotension , likely due to liver failure further complicated by pneumonia/sepsis. The patient is currently on a bicarbonate infusion as she is on low-dose pressors. she is also covered with IV Zosyn. acute kidney injury , and the patient is oliguric at this point in time. Note that the patient did have some chronic kidney insufficiency at baseline. There is a component of an acute on top of chronic kidney failure. She does have a baseline stage III chronic kidney disease. She has a Peterson catheter in place Acute metabolic acidosis with lactic acidosis, improving acute on top of chronic anemia with a hemoglobin drop down to 6.2, no indication for an acute GI bleed at this point in time Altered mental status secondary to above. there may be also a component of metabolic encephalopathy/ hepatic encephalopathy and the patient's serum ammonia level was 53. liver cirrhosis/ascites previous history of TIPS regarding liver cirrhosis and recurrent ascites history of pancytopenia secondary to liver failure/hypersplenism portal hypertension. History of GI bleed, inactive in stable for now questionable lung nodues for which a PET scan was ordered for this patient and the patient was deactivated from the transplantation list. we do not have any update on her candidacy for liver transplant at this point in time. My information from last year was that the patient was deactivated. history of psoriatic arthritis history of diabetes mellitus currently on insulin pump. Blood sugar seems to be under poor control monitor the blood sugar from today is quite elevated. Fibromyalgia coronary artery disease without previous history of any underlying cardiomyopathy with CHF. hyperbilirubinemia secondary to liver cirrhosis Plan continue ventilator support The patient is sedated with propofol Continue the bicarbonate infusion for another 24 hours and monitor the serum bicarb Give albumin , 25%, 50 cc every 12 hours Gradually wean off the norepinephrine infusion Up an ultrasound abdomen rule out hydronephrosis Check pro calcitonin level Check blood cultures Moore is a triple-lumen catheter and arterial line. We will also do a bronchoscopy with bronchiolar lavage regarding her ongoing pneumonia. IV Zosyn as empiric antibiotic coverage for now Transfuse with 1 units of packed RBC start The patient on enteral feeding for nutritional support and diet will be consulted With the patient on lactulose 20 mL once a day establish a regular bowel movement activity Continue rifaximin mean 550 mg by mouth twice a day Obtain a nephrology consultation Obtain a urinalysis Obtain further information from family regarding her candidacy for transplantation at her current status Re: Transplant at the [facility] With the patient on insulin sliding scale coverage Lactic acid levels improved LFTs are normal We'll continue to follow. Condition is obviously critical. We'll make further recommendations based on her progress. physical. Evaluation of the event of more than 30 minutes excluding time to do any procedures. Time with Patient: Greater than 30
[2022-08-11] MEDS ORDERED: DEXTROSE 50% SYRINGE 50 ML IVP PRN (09:46)
[2022-08-11] MEDS ORDERED: ALBUMIN HUMAN 25% 50 ML in EMPTY BAG 1 BAG IVPB SCH (10:30)
[2022-08-11] MEDS: DEXTROSE 5% IN WATER 1,000 ML with SODIUM BICARB (1 MEQ/ML) 100 ML IV SCH ×2 (10:38→21:30)
--- NOTE | 2022-08-11 10:42 | P.HPIM ---
History of Present Illness This is a pleasant 67-soaked female with past medical history of alcohol liver disease and cirrhosis, coronary artery disease gastroesophageal reflux disease, chronic heart failure, fibromyalgia, hyperlipidemia, diabetes mellitus on insulin, pancytopenia, seizure history of TIPS and EGD with banded esophageal varices. paroxysmal atrial fibrillation not on anticoagulation secondary to liver disease on the waiting list for liver transplant on [facility] in [place] Presents with dyspnea and hypoxia Patient currently in intubated and could not provide information so it was obtained from the medical records and staff. No family at bedside. Patient was hypotensive blood pressure 93/78, currently her blood pressure improved slightly 102/44.. She is saturating 98%. She is tachypneic with a breathing rate around 28. Patient is afebrile. showing leukocytosis of 15.1, at baseline she has leukopenia with WBC 2-3. Hemoglobin 7.8.Platelet count 91 INR 1.6. PH 7.2, pCO2 of 34. PO2 of 195. Lactic acid is 4.6. Creatinine 2.1, baseline 1.5-1.7, chronic kidney disease stage III Magnesium 2.4 Bilirubin elevated at 2.8, AST slightly elevated at 42 while ALT is normal at 24. Ammonia is 53 ProBNP is elevated 44558. Serum alcohol Less than 10 Covid is not detected as well as influenza virus is Chest x-ray: There are multiple focal large ill-defined opacity throughout the entire of the right lung and involved the left suprahilar and left infra-hilar lung the pattern consistent with a clinical diagnosis of multifocal bron chopneumonia with associated right pleural effusion per the radiologist An emergency room patient received a pleasant somewhat, IV Solu-Medrol 1, morphine, Ativan and she got intubated. Also she received Rocephin 1. She was also receiving normal saline at 100 mL per hour with pulmonary team consulted Peterson catheter in place with dark yellow urine about 5 mL. Review of Systems ROS unobtainable: due to endotracheal tube Past Medical History Past Medical History: Coronary Artery Disease (CAD), Cancer, Chest Pain / Angina, Heart Failure, Diabetes Mellitus, Fibromyalgia, GERD/Reflux, Hyperlipidemia, Liver Disease, Renal Disease, Skin Disorder Additional Past Medical History / Comment(s): Non-ETOH cirrhosis, ascities, esophageal varices, pancytopenia, thrombycytopenia, anemia, IDDM with insulin pump, several nodules both lungs being monitored, urinary leakage at times and pt states she has diarrhea much of the time, psoriasis, cervical cancer, pt states 2 blockages in back of heart, awaiting liver transplant at [facility] in [place]. hx migraines, 2 seizures post back surgery, hiatal hernia, patient is undergoing work up for a possible TIPS at [facility] History of Any Multi-Drug Resistant Organisms: None Reported Past Surgical History: Back Surgery, Breast Surgery, Cholecystectomy, Heart Catheterization, Hysterectomy, Orthopedic Surgery, Tonsillectomy, Tubal Ligation Additional Past Surgical History / Comment(s): multi large volume Paracentesis, EGD with banded esophageal varices, colonoscopies, bilateral rotator cuff repairs, bilateral breast bx-benign, back surgery in 2014, TIPS Past Anesthesia/Blood Transfusion Reactions: Previous Problems w/ Anesthesia, Family History of Problems w/ Anesthesia, Motion Sickness Additional Past Anesthesia/Blood Transfusion Reaction / Comment(s): difficulty breathing when coming out of anesthesia; difficulty waking up. Hypotension with general anesthesia. blood transfusions without reaction. sister- slow coming out and PONV Past Psychological History: No Psychological Hx Reported Smoking Status: Former smoker Past Alcohol Use History: None Reported Past Drug Use History: None Reported - Past Family History Mother Family Medical History: Cancer Additional Family Medical History / Comment(s): skin cancer. Father Family Medical History: Coronary Artery Disease (CAD) Additional Family Medical History / Comment(s): cabg/pacemaker Brother(s) Family Medical History: Cancer Sister(s) Family Medical History: Cancer, Deep Vein Thrombosis (DVT) Additional Family Medical History / Comment(s): Breast CA. Medications and Allergies Home Medications Medication Instructions Recorded Confirmed Type Ezetimibe [Zetia] 10 mg PO DAILY 09/04/16 08/10/22 History Sertraline [Zoloft] 25 mg PO DAILY 01/12/17 08/10/22 History Atorvastatin [Lipitor] 40 mg PO HS 02/03/20 08/10/22 History Vitamin A Acetate [Vitamin A] 20,000 unit SL DAILY 02/03/20 08/10/22 History Potassium Chloride ER [K-Dur 20] 20 meq PO DAILY 06/24/20 08/10/22 History Midodrine HCl [ProAmatine] 10 mg PO BID 03/15/21 08/10/22 History Pantoprazole Sodium [Protonix] 40 mg PO DAILY 03/15/21 08/10/22 History Furosemide [Lasix] 40 mg PO DAILY 07/25/21 08/10/22 History Montelukast [Singulair] 10 mg PO HS 01/03/22 08/10/22 History INSULIN LISPRO (humaLOG) [humaLOG] See Protocol SQ ACHS 08/10/22 08/10/22 History Insulin Detemir (Levemir) [Levemir] 24 unit SQ DAILY 08/10/22 08/10/22 History Lactulose [Constulose] 20 gm PO DAILY 08/10/22 08/10/22 History Metoprolol Tartrate [Lopressor] 25 mg PO DAILY 08/10/22 08/10/22 History Rifaximin [Xifaxan] 550 mg PO BID 08/10/22 08/10/22 History calcitrioL [Rocaltrol] 0.25 mcg PO MO 08/10/22 08/10/22 History Allergies Allergy/AdvReac Type Severity Reaction Status Date / Time doxycycline Allergy Rash/Hives Verified 07/08/22 19:17 iodine Allergy Rash/Hives Verified 07/08/22 19:17 Penicillins Allergy Rash/Hives Verified 07/08/22 19:17 shellfish derived Allergy Rash/Hives Verified 07/08/22 19:17 Sulfa (Sulfonamide Allergy Rash/Hives Verified 07/08/22 19:17 Antibiotics) venom-honey bee Allergy Anaphylaxis Verified 07/08/22 19:17 [bee venom (honey bee)] Physical Exam Vitals: Vital Signs Temp Pulse Pulse Resp BP BP Pulse Ox 08/11/22 06:00 75 29 H 102/45 95 08/10/22 22:40 80 17 108/44 08/10/22 21:30 84 24 104/39 98 08/10/22 21:20 83 22 102/42 98 08/10/22 21:10 86 24 103/44 98 08/10/22 21:00 87 22 93/38 98 08/10/22 20:51 87 26 H 93/38 99 08/10/22 20:36 08/10/22 20:15 08/10/22 20:13 08/10/22 19:46 08/10/22 19:32 47 L 08/10/22 19:30 42 H 100 08/10/22 19:24 97.8 F 98 38 H 111/46 88 L FiO2 08/11/22 06:00 90 08/10/22 22:40 08/10/22 21:30 08/10/22 21:20 08/10/22 21:10 08/10/22 21:00 08/10/22 20:51 08/10/22 20:36 80 08/10/22 20:15 100 08/10/22 20:13 100 08/10/22 19:46 100 08/10/22 19:32 08/10/22 19:30 08/10/22 19:24 Intake and Output 08/10/22 08/10/22 08/11/22 14:59 22:59 06:59 Intake Total 4.833 159.455 Output Total 5 Balance 4.833 154.455 Intake: IV 125 Sodium Bicarbonate 100 Zosyn 25 Intake, IV Titration 4.833 34.455 Amount Norepinephrine 4 mg In 19.182 Sodium Chloride 0.9% 250 ml @ 0.02 MCG/KG/MIN 6. 394 mls/hr IV .Q24H [facility]ARIO Rx#:[id number] propofoL 1,000 mg In 4.833 Empty Bag 1 bag @ 15 MCG/ KG/MIN 7.552 mls/hr IV . [id number] [facility]IO Rx#:[id number] propofoL 1,000 mg In 15.273 Empty Bag 1 bag @ 15 MCG/ KG/MIN 7.552 mls/hr IV . [id number] AMCARIO Rx#:[id number] Output: Urine 5 Other: Weight 83.915 kg 86.4 kg -GENERAL: The patient is sedated and intubated HEENT: Pupils are round and equally reacting to light. EOMI. No scleral icterus. No conjunctival pallor. Normocephalic, atraumatic. No pharyngeal erythema. No thyromegaly. CARDIOVASCULAR: S1 and S2 present. No murmurs, rubs, or gallops. PULMONARY: Chest is clear to auscultation, no wheezing or crackles. ABDOMEN: Soft, nontender, nondistended, normoactive bowel sounds. No palpable organomegaly. MUSCULOSKELETAL: No joint swelling or deformity. -EXTREMITIES: No cyanosis, clubbing, . 3+ bilateral pitting leg edema. NEUROLOGICAL: Gross neurological examination did not reveal any focal deficits. SKIN: No rashes. no petechiae. Results CBC & Chem 7: 08/11/22 06:50 08/11/22 06:50 Labs: Abnormal Lab Results - Last 24 Hours (Table) 08/10/22 08/10/22 08/10/22 Range/Units 19:39 19:39 19:39 WBC 15.1 H (3.8-10.6) k/uL RBC 2.85 L (3.80-5.40) m/uL Hgb 7.8 L (11.4-16.0) gm/dL Hct 27.0 L (34.0-46.0) % MCHC 28.8 L (31.0-37.0) g/dL RDW 16.7 H (11.5-15.5) % Plt Count 91 L (150-450) k/uL Neutrophils # (Manual) 13.80 H (1.3-7.7) k/uL Lymphocytes # (Manual) 0.91 L (1.0-4.8) k/uL PT 16.6 H (9.0-12.0) sec INR 1.6 H (<1.2) ABG pH (7.35-7.45) ABG pCO2 (35-45) mmHg ABG pO2 (83-108) mmHg ABG HCO3 (21-25) mmol/L ABG Total CO2 (19-24) mmol/L ABG O2 Saturation (94-97) % Chloride 110 H (98-107) mmol/L Carbon Dioxide 12 L (22-30) mmol/L BUN 39 H (7-17) mg/dL Creatinine 2.17 H (0.52-1.04) mg/dL Glucose 130 H (74-99) mg/dL POC Glucose (mg/dL) (70-110) mg/dL Plasma Lactic Acid Juan (0.7-2.0) mmol/L Calcium 8.3 L (8.4-10.2) mg/dL Magnesium 2.4 H (1.6-2.3) mg/dL Total Bilirubin 2.8 H (0.2-1.3) mg/dL AST 42 H (14-36) U/L Alkaline Phosphatase 180 H (38-126) U/L Ammonia (<30) umol/L Total Protein 6.0 L (6.3-8.2) g/dL Albumin 3.0 L (3.5-5.0) g/dL 08/10/22 08/10/22 08/10/22 Range/Units 19:39 20:25 22:54 WBC (3.8-10.6) k/uL RBC (3.80-5.40) m/uL Hgb (11.4-16.0) gm/dL Hct (34.0-46.0) % MCHC (31.0-37.0) g/dL RDW (11.5-15.5) % Plt Count (150-450) k/uL Neutrophils # (Manual) (1.3-7.7) k/uL Lymphocytes # (Manual) (1.0-4.8) k/uL PT (9.0-12.0) sec INR (<1.2) ABG pH 7.20 L (7.35-7.45) ABG pCO2 34 L (35-45) mmHg ABG pO2 195 H (83-108) mmHg ABG HCO3 14 L (21-25) mmol/L ABG Total CO2 15 L (19-24) mmol/L ABG O2 Saturation 100.0 H (94-97) % Chloride (98-107) mmol/L Carbon Dioxide (22-30) mmol/L BUN (7-17) mg/dL Creatinine (0.52-1.04) mg/dL Glucose (74-99) mg/dL POC Glucose (mg/dL) 180 H (70-110) mg/dL Plasma Lactic Acid Juan 4.6 H* (0.7-2.0) mmol/L Calcium (8.4-10.2) mg/dL Magnesium (1.6-2.3) mg/dL Total Bilirubin (0.2-1.3) mg/dL AST (14-36) U/L Alkaline Phosphatase (38-126) U/L Ammonia 53 H (<30) umol/L Total Protein (6.3-8.2) g/dL Albumin (3.5-5.0) g/dL 08/10/22 08/11/22 Range/Units 23:58 06:14 WBC (3.8-10.6) k/uL RBC (3.80-5.40) m/uL Hgb (11.4-16.0) gm/dL Hct (34.0-46.0) % MCHC (31.0-37.0) g/dL RDW (11.5-15.5) % Plt Count (150-450) k/uL Neutrophils # (Manual) (1.3-7.7) k/uL Lymphocytes # (Manual) (1.0-4.8) k/uL PT (9.0-12.0) sec INR (<1.2) ABG pH (7.35-7.45) ABG pCO2 (35-45) mmHg ABG pO2 (83-108) mmHg ABG HCO3 (21-25) mmol/L ABG Total CO2 (19-24) mmol/L ABG O2 Saturation (94-97) % Chloride (98-107) mmol/L Carbon Dioxide (22-30) mmol/L BUN (7-17) mg/dL Creatinine (0.52-1.04) mg/dL Glucose (74-99) mg/dL POC Glucose (mg/dL) 172 H 238 H (70-110) mg/dL Plasma Lactic Acid Juan (0.7-2.0) mmol/L Calcium (8.4-10.2) mg/dL Magnesium (1.6-2.3) mg/dL Total Bilirubin (0.2-1.3) mg/dL AST (14-36) U/L Alkaline Phosphatase (38-126) U/L Ammonia (<30) umol/L Total Protein (6.3-8.2) g/dL Albumin (3.5-5.0) g/dL Assessment and Plan Assessment: Acute Bilateral broncho-pneumonia Acute CHF exacerbation, with ejection fraction 55-60% Possible septic shock Acute hypoxic respiratory failure, required intubation and mechanical ventilation Acute kidney injury, with low urine output Metabolic acidosis Elevated lactic acid Metabolic and hepatic encephalopathy Elevated bilirubin Diabetes mellitus on insulin, nonalcoholic liver disease and liver cirrhosis History of ascites status post paracentesis Chronic heart failure History of fibromyalgia Hyperlipidemia and history of pancytopenia History of seizure history of EGD with banded esophageal varices History of chronic atrial fibrillation not on anticoagulation because of her liver disease [id number] mitral regurgitation Plan: This is a pleasant 58 minus old female presents with hypoxia Continue with bronchodilator Pulmonary consult Continue with antibiotic Zosyn, follow-up culture results Continue with rifaximin and lactulose There is no GI coverage in this facility Follow up creatinine, check urinalysis. Patient has low urine output. We will monitor urine output and consider nephrology consult Labs and medication were reviewed.. Continue same treatment. Continue with symptomatic treatment. Resume home medication. Monitor lytes and vitals. DVT and GI prophylaxis. Further recommendations as per clinical course of the patient DVT prophylaxis: Subcutaneous heparin GI Prophylaxis: Pepcid PT/OT: Pending Prognosis is guarded
[2022-08-11 11:30] LABS: Glucose,Whole Blood 294 mg/dL (70-110)
[2022-08-11] MEDS: IPRATROPIUM-ALBUTEROL 3 ML NEB INHALATION PRN ×3 (11:31→20:06)
[2022-08-11] MEDS ORDERED: SODIUM BICARB 8.4% 50 ML SYR (1 MEQ/ML) IV STA ×2 (11:50→12:46)
--- NOTE | 2022-08-11 12:02 | P.NPCON ---
History of Present Illness - Reason for Consult acute renal failure, chronic renal failure - History of Present Illness Reason for consultation: Acute kidney injury on chronic kidney disease History of present illness: Patient is a 67-year-old female seen in renal consultation for acute kidney injury on chronic kidney disease. Patient has chronic kidney disease stage IIIB with baseline creatinine the range of 1.1-1.5. Patient has history of nonalcoholic liver cirrhosis. Patient presented to the hospital with worsening shortness of breath and was subsequently diagnosed with pneumonia. She did rec eive 500 mL bolus of normal saline and is currently maintained on bicarb drip running at 100 mL an hour. She also has IV albumin ordered. She is on Levophed. Patient is oliguric. Hemoglobin was 6.2 today and she scheduled to receive 2 units of blood. Albumin is 2.7. Patient does have history of diabetes as well as coronary artery disease. She is currently intubated. She is a 90% FiO2. Patient has severe edema in the lower extremities. Her abdomen does not look distended. There is no evidence of any acute bleeding per the nurse. Patient does have history of variceal bleed. Vital signs are stable - on vasopressor support. General: Intubated. HEENT: Head exam is unremarkable. LUNGS: Breath sounds decreased. HEART: Rate and Rhythm are regular. ABDOMEN: Soft, mild distention. EXTREMITITES: 3+ edema. Past Medical History Past Medical History: Coronary Artery Disease (CAD), Cancer, Chest Pain / Angina, Heart Failure, Diabetes Mellitus, Fibromyalgia, GERD/Reflux, Hyperlipidemia, Liver Disease, Renal Disease, Skin Disorder Additional Past Medical History / Comment(s): Non-ETOH cirrhosis, ascities, esophageal varices, pancytopenia, thrombycytopenia, anemia, IDDM with insulin pump, several nodules both lungs being monitored, urinary leakage at times and pt states she has diarrhea much of the time, psoriasis, cervical cancer, pt states 2 blockages in back of heart, awaiting liver transplant at [facility] in [place]. hx migraines, 2 seizures post back surgery, hiatal hernia, patient is undergoing work up for a possible TIPS at [facility] History of Any Multi-Drug Resistant Organisms: None Reported Past Surgical History: Back Surgery, Breast Surgery, Cholecystectomy, Heart Catheterization, Hysterectomy, Orthopedic Surgery, Tonsillectomy, Tubal Ligation Additional Past Surgical History / Comment(s): multi large volume Paracentesis, EGD with banded esophageal varices, colonoscopies, bilateral rotator cuff repairs, bilateral breast bx-benign, back surgery in 2015, TIPS Past Anesthesia/Blood Transfusion Reactions: Previous Problems w/ Anesthesia, Family History of Problems w/ Anesthesia, Motion Sickness Additional Past Anesthesia/Blood Transfusion Reaction / Comment(s): difficulty breathing when coming out of anesthesia; difficulty waking up. Hypotension with general anesthesia. blood transfusions without reaction. sister- slow coming out and PONV Past Psychological History: No Psychological Hx Reported Smoking Status: Former smoker Past Alcohol Use History: None Reported Past Drug Use History: None Reported - Past Family History Mother Family Medical History: Cancer Additional Family Medical History / Comment(s): skin cancer. Father Family Medical History: Coronary Artery Disease (CAD) Additional Family Medical History / Comment(s): cabg/pacemaker Brother(s) Family Medical History: Cancer Sister(s) Family Medical History: Cancer, Deep Vein Thrombosis (DVT) Additional Family Medical History / Comment(s): Breast CA. Medications and Allergies Home Medications Medication Instructions Recorded Confirmed Type Ezetimibe [Zetia] 10 mg PO DAILY 09/04/16 08/10/22 History Sertraline [Zoloft] 25 mg PO DAILY 01/12/17 08/10/22 History Atorvastatin [Lipitor] 40 mg PO HS 02/03/20 08/10/22 History Vitamin A Acetate [Vitamin A] 20,000 unit SL DAILY 02/03/20 08/10/22 History Potassium Chloride ER [K-Dur 20] 20 meq PO DAILY 06/24/20 08/10/22 History Midodrine HCl [ProAmatine] 10 mg PO BID 03/15/21 08/10/22 History Pantoprazole Sodium [Protonix] 40 mg PO DAILY 03/15/21 08/10/22 History Furosemide [Lasix] 40 mg PO DAILY 07/25/21 08/10/22 History Montelukast [Singulair] 10 mg PO HS 01/03/22 08/10/22 History INSULIN LISPRO (humaLOG) [humaLOG] See Protocol SQ ACHS 08/10/22 08/10/22 History Insulin Detemir (Levemir) [Levemir] 24 unit SQ DAILY 08/10/22 08/10/22 History Lactulose [Constulose] 20 gm PO DAILY 08/10/22 08/10/22 History Metoprolol Tartrate [Lopressor] 25 mg PO DAILY 08/10/22 08/10/22 History Rifaximin [Xifaxan] 550 mg PO BID 08/10/22 08/10/22 History calcitrioL [Rocaltrol] 0.25 mcg PO MO 08/10/22 08/10/22 History Allergies Allergy/AdvReac Type Severity Reaction Status Date / Time doxycycline Allergy Rash/Hives Verified 07/08/22 19:17 iodine Allergy Rash/Hives Verified 07/08/22 19:17 Penicillins Allergy Rash/Hives Verified 07/08/22 19:17 shellfish derived Allergy Rash/Hives Verified 07/08/22 19:17 Sulfa (Sulfonamide Allergy Rash/Hives Verified 07/08/22 19:17 Antibiotics) venom-honey bee Allergy Anaphylaxis Verified 07/08/22 19:17 [bee venom (honey bee)] Physical Exam Vitals: Vital Signs Temp Pulse Pulse Resp BP BP Pulse Ox 08/11/22 11:32 08/11/22 11:00 64 28 H 101/43 99 08/11/22 10:00 67 28 H 102/44 99 08/11/22 09:00 70 28 H 99/43 98 08/11/22 08:00 98.2 F 71 28 H 99/42 98 08/11/22 07:34 08/11/22 07:00 75 30 H 104/44 96 08/11/22 06:00 75 29 H 102/45 95 08/10/22 22:40 80 17 108/44 08/10/22 21:30 84 24 104/39 98 08/10/22 21:20 83 22 102/42 98 08/10/22 21:10 86 24 103/44 98 08/10/22 21:00 87 22 93/38 98 08/10/22 20:51 87 26 H 93/38 99 08/10/22 20:36 08/10/22 20:15 08/10/22 20:13 08/10/22 19:46 08/10/22 19:32 47 L 08/10/22 19:30 42 H 100 08/10/22 19:24 97.8 F 98 38 H 111/46 88 L FiO2 08/11/22 11:32 90 08/11/22 11:00 90 08/11/22 10:00 90 08/11/22 09:00 08/11/22 08:00 90 08/11/22 07:34 90 08/11/22 07:00 90 08/11/22 06:00 90 08/10/22 22:40 08/10/22 21:30 08/10/22 21:20 08/10/22 21:10 08/10/22 21:00 08/10/22 20:51 08/10/22 20:36 80 08/10/22 20:15 100 08/10/22 20:13 100 08/10/22 19:46 100 08/10/22 19:32 08/10/22 19:30 08/10/22 19:24 Intake and Output 08/10/22 08/11/22 08/11/22 22:59 06:59 14:59 Intake Total 4.833 168.015 739.825 Output Total 5 10 Balance 4.833 163.015 729.825 Intake: IV 125 600 Sodium Bicarbonate 100 500 Zosyn 25 100 Intake, IV Titration 4.833 43.015 139.825 Amount Norepinephrine 4 mg In 19.182 93.252 Sodium Chloride 0.9% 250 ml @ 0.02 MCG/KG/MIN 6. 394 mls/hr IV .Q24H [facility] Rx#:[id number] propofoL 1,000 mg In 4.833 Empty Bag 1 bag @ 15 MCG/ KG/MIN 7.552 mls/hr IV . [id number] [facility] Rx#:[id number] propofoL 1,000 mg In 23.833 46.573 Empty Bag 1 bag @ 15 MCG/ KG/MIN 7.552 mls/hr IV . [id number] [facility] Rx#:[id number] Output: Urine 5 10 Other: Voiding Method Indwelling Catheter Weight 83.915 kg 86.4 kg 86.4 kg Results - Lab Results Most recent lab results ABG pH 7.34 (7.35-7.45) L 08/11/22 06:02 ABG pCO2 25 mmHg (35-45) L 08/11/22 06:02 ABG pO2 87 mmHg (83-108) 08/11/22 06:02 ABG HCO3 14 mmol/L (21-25) L 08/11/22 06:02 ABG O2 Saturation 98.0 % (94-97) H 08/11/22 06:02 Calcium 7.7 mg/dL (8.4-10.2) L 08/11/22 06:50 Magnesium 2.2 mg/dL (1.6-2.3) 08/11/22 06:50 08/11/22 06:50 08/11/22 06:50 Assessment and Plan Plan: Assessment: 1. Acute kidney injury secondary to ATN secondary to septic shock and anemia. Creatinine 2.25 today. Oliguric. 2. Septic shock secondary to pneumonia on antibiotics and Levophed. 3. Metabolic acidosis secondary to acute kidney injury. 4. Volume overload. 5. Nonalcoholic liver cirrhosis. 6. Acute blood loss anemia. No active bleeding noted. Scheduled to receive 2 units of blood today. Hemoglobin 6.2. 7. Acute hypoxic respiratory failure. Plan: Stop IV albumin. Maintain bicarb drip for now. 2 A sodium bicarb IV push now. Add IV Lasix 80 mg twice daily. First dose to be given in between blood transfusions. Wean FiO2 and vasopressors. Continue to assess closely for need for renal replacement therapy. Repeat BMP this evening. Follow-up renal ultrasound. Thank you for the consultation. I will continue to follow patient with you during her hospital stay.
--- NOTE | 2022-08-11 12:18 | P.PCN ---
Date of Procedure: 08/11/22 Preoperative Diagnosis: Acute bilateral pneumonia Postoperative Diagnosis: Acute bilateral pneumonia Procedure(s) Performed: Central line, arterial line, bronchoscopy with a bronchoalveolar lavage Anesthesia: CHAPINCITO Surgeon: Ronnie Louie Pathology: other Condition: critical Disposition: ICU Operative Findings: Central line Indication: Hemodynamic monitoring/Intravenous access. A time-out was completed verifying correct patient, procedure, site, positioning, and implant(s) or special equipment if applicable. The patient was placed in a dependent position appropriate for central line placement based on the vein to be cannulated. The patients LEFT shoulder was prepped and draped in sterile fashion. 1% Lidocaine was used to anesthetize the surrounding skin area. A triple lumen 9F Cordis catheter was introduced into the LT subclavian vein using Seldinger technique. The catheter was threaded smoothly over the guide wire and appropriate blood return was obtained. Each lumen of the catheter was evacuated of air and flushed with sterile saline. The catheter was then sutured in place to the skin and a sterile dressing applied. Perfusion to the extremity distal to the point of catheter insertion was checked and found to be adequate. The patient tolerated the procedure well and there were no complications. Arterial line Indication: Hemodynamic monitoring. A time-out was completed verifying correct patient, procedure, site, positioning, and implant(s) or special equipment if applicable. Allens test was performed to ensure adequate perfusion. The patient left wrist or was prepped and draped in sterile fashion. 1% Lidocaine was used to anesthetize the area. An 18G Arrow arterial line was introduced into the radial artery. The catheter was threaded over the guide wire and the needle was removed with appropriate pulsatile blood return. Blood loss was minimal. The catheter was then sutured in place to the skin and a sterile dressing applied. Perfusion to the extremity distal to the point of catheter insertion was checked and found to be adequate. The patient tolerated the procedure well and there were no complications. Bronchoscopy with a bronchial lavage This procedure was done while the patient was being intubated on a mechanical ventilator. The patient was already sedated with propofol. The patient was placed on 100% FiO2 and the procedure was done as the patient was being adequately oxygenated and ventilated. Using disposable bronchoscope, the procedure was completed. An adapter was dictation orotracheal tube and following that the flexible bronchoscope was advanced with orotracheal tube and was moved into the lower trachea. Examination of the talk about that she was not. The distal trachea, bilateral mainstem bronchi, right upper lobe bronchus, bronchus intermedius, right middle lobe and right lower lobe bronchus along with the various segments on the right side of the lung and then left mainstem bronchus, left upper lobe bronchus, left lower lobe bronchus along with the various segments on the left were all visualized. There was some scant secretions that were suctioned out without any major difficulties. Following that, the bronchoscope was wedged into thev RML and bronchoalveolar lavage was done. A total of 40 mL of fluid was infused and 25 mL was aspirated without any major difficulties. The procedure was completed. The bronchoscope was removed. The bronchoalveolar lavage was sent for microbial cultures and analysis. No complications.
[2022-08-11] MEDS: INSULIN ASPART (NovoLOG) 100 UNIT/ML VIAL SQ SCH ×2 (12:39→17:41)
[2022-08-11] MEDS: LACTULOSE 20 GM/30 ML CUP PO SCH (12:39)
--- NOTE | 2022-08-11 13:05 | XR ---
EXAMINATION TYPE: XR chest 1V confirm line [facility] DATE OF EXAM: 08/11/2022 COMPARISON: Chest x-ray same dated earlier time HISTORY: Status post central venous catheter placement TECHNIQUE: Single frontal view of the chest is obtained. FINDINGS: There has been interval placement of a left subclavian central venous catheter, distal tip is near the cavoatrial junction. No evident pneumothorax or other significant interval change. IMPRESSION: No evident complication status post central venous catheter placement.
[2022-08-11] MEDS ORDERED: VANCOMYCIN IV PER PHARMACY 1 EACH MISC MISCELLANE PRN (15:09)
[2022-08-11] MEDS ORDERED: VANCOMYCIN 1,750 MG in SODIUM CHLORIDE 0.9% 500 ML 500 ML IVPB ONE (16:00)
[2022-08-11] MEDS: FUROSEMIDE 10 MG/ML 10 ML VIAL IV SCH ×2 (16:01→22:09)
--- NOTE | 2022-08-11 17:04 | US ---
EXAMINATION TYPE: US abd limited kidneys/bladder DATE OF EXAM: 08/11/2022 COMPARISON: CT dated 07/26/2021 CLINICAL HISTORY: ascites. GILDA and ascites on intubated ICU patient TECHNIQUE: Multiple sonographic images of the right upper quadrant, bilateral kidneys, and bladder ar e obtained. FINDINGS: Moderate ascites noted. EXAM MEASUREMENTS: Right Kidney: 8.6 x 4.4 x 4.7 cm Left Kidney: 8.4 x 4.4 x 4.7 cm Right Kidney: limited views showed renal is small in size Left Kidney: limited views showed renal is small in size, kidneys show cortical injury differentiati on. No hydronephrosis. Bladder: mendez moderate ascites seen throughout abdomen IMPRESSION: No definite hydronephrosis. Renal sizes as described, additional findings above.
[2022-08-11 17:30] LABS: Glucose,Whole Blood 303 mg/dL (70-110)
[2022-08-11 17:39] LABS: Anisocytosis Slight; HCT 25.1 % (34.0-46.0); Hypochromasia Marked; MCH 28.4 pg (25.0-35.0); MCV 91.6 fL (80.0-100.0); Mean Platelet Volume 14.3; Poikilocytosis Marked; RBC 2.75 m/uL (3.80-5.40); RDW 16.4 % (11.5-15.5); WBC 6.3 k/uL (3.8-10.6)
[2022-08-11 17:48] LABS: Calcium 7.7 mg/dL (8.4-10.2); Potassium 4.4 mmol/L (3.5-5.1)
[2022-08-11 17:54] LABS: Appearance,Urine Cloudy (Clear); Bacteria,Urine Rare /hpf; Bilirubin,Urine Negative (Negative); Blood,Urine Moderate (Negative); Color,Urine Yellow; Glucose,Urine (UA) Trace (Negative); Hyaline Casts,Urine 8 /lpf (0-2); Ketones,Urine Negative (Negative); Leukocyte Esterase,Urine Moderate (Negative); Mucus,Urine Occasional /hpf; Nitrite,Urine Negative (Negative); PH, Urine 5.5 (5.0-8.0); Protein,Urine 2+ (Negative); RBC,Urine 127 /hpf (0-5); Specific Gravity,Urine 1.023 (1.001-1.035); Squamous Epithelial Cell,Urine 2 /hpf (0-4); Urobilinogen,Urine <2.0 mg/dL (<2.0); WBC,Urine 48 /hpf (0-5)
[2022-08-11 17:56] LABS: HGB 7.8 gm/dL (11.4-16.0); Platelet Count 34 k/uL (150-450)
--- NOTE | 2022-08-11 19:14 | CA ---
Transthoracic Echo Report Name: Carol Gore Age: 67 Gender: F : 1955 Exam Date: 08/11/2022 11:31 Exam Location: [place] Echo Ht (in): 64 Wt (lb): 190 Ordering Physician: Ronnie Louie MD Attending/Referring Phys: Space Physicist Marcela Thrasher RDCS Procedure CPT: Indications: elevated bnp Cardiac Hx: Technical Quality: Fair Contrast 1: Total Dose (mL): Contrast 2: Total Dose (mL): MEASUREMENTS (Male / Female) Normal Values 2D ECHO LV Diastolic Diameter PLAX 3.6 cm 4.2 - 5.9 / 3.9 - 5.3 cm LV Systolic Diameter PLAX 1.5 cm IVS Diastolic Thickness 1.1 cm 0.6 - 1.0 / 0.6 - 0.9 cm LVPW Diastolic Thickness 1.1 cm 0.6 - 1.0 / 0.6 - 0.9 cm LV Relative Wall Thickness 0.6 RV Internal Dim ED PLAX 5.2 cm LA Volume 69.7 cm??? 18 - 58 / 22 - 52 cm??? M-MODE Aortic Root Diameter MM 2.8 cm LA Systolic Diameter MM 4.1 cm LA Ao Ratio MM 1.5 AV Cusp Separation MM 1.4 cm DOPPLER AV Peak Velocity 217.5 cm/s AV Peak Gradient 18.9 mmHg AV Mean Velocity 123.9 cm/s AV Mean Gradient 7.6 mmHg AV Velocity Time Integral 41.9 cm LVOT Peak Velocity 137.1 cm/s LVOT Peak Gradient 7.5 mmHg MV Area PHT 2.0 cm??? Mitral E Point Velocity 141.9 cm/s Mitral A Point Velocity 107.8 cm/s Mitral E to A Ratio 1.3 MV Deceleration Time 370.7 ms TR Peak Velocity 411.8 cm/s TR Peak Gradient 67.8 mmHg Right Ventricular Systolic Press 71.2 mmHg FINDINGS Left Ventricle Mildly increased left ventricular wall thickness. Normal left ventricular systolic function with no obvious regional wall motion abnormalities. Left ventricular ejection fraction is estimated at 55-60 %. Flattened septum in systole and diastole consistent with right ventricle pressure and volume overload. Right Ventricle Moderate to severe right ventricular dilatation. Severe pulmonary hypertension. Right Atrium Severe right atrial dilatation. Left Atrium Moderately increased left atrial volume. Mitral Valve Mitral valve thickened. Mild mitral annular calcification. Mild to moderate mitral regurgitation. Aortic Valve Mild aortic stenosis with a peak gradient of 19 mmHg and a mean gradient of 8 mmHg. Aortic valve sclerosis. Tricuspid Valve Moderate to severe tricuspid regurgitation. Pulmonic Valve Trace pulmonic regurgitation. Pericardium No pericardial effusion. Aorta Normal size aortic root and proximal ascending aorta. CONCLUSIONS Left ventricular ejection fraction 55-60% Moderate to severe right ventricular dilation Severe pulmonary hypertension RVSP 71 Severe right atrial dilation Mild to moderate mitral regurgitation Mild aortic stenosis with mean gradient of 8 Moderate to severe tricuspid regurgitation Previewed by: Dr. Gilles Mendiola DO (Electronically Signed) Final Date: 11 August 2022 19:14
[2022-08-11 19:45] LABS: Amphetamine Screen,Urine Not Detected (NotDetected); Barbiturate Screen,Urine Not Detected (NotDetected); Benzodiazepines Screen,Urine Detected (NotDetected); Cocaine Screen,Urine Not Detected (NotDetected); Methadone Screen, Urine Not Detected (NotDetected); Opiate Screen,Urine Detected (NotDetected); Oxycodone Screen, Urine Not Detected (NotDetected); Phencyclidine Screen,Urine Not Detected (NotDetected); Tricyclic Antidepressant,Urine Not Detected (NotDetected); Urn Cannabinoid Scrn Not Detected (NotDetected)
[2022-08-11] MEDS: RIFAXIMIN 550 MG TABLET PO SCH (21:46)
[2022-08-11 23:58] LABS: Glucose,Whole Blood 344 mg/dL (70-110)
[2022-08-12] MEDS ORDERED: DEXTROSE 5% IN WATER 100 ML with AMIODARONE 150 MG IV ONE (03:00)
[2022-08-12] MEDS ORDERED: AMIODARONE 360 MG in DEXTROSE 5% IN WATER 200 ML IV ONE ×2 (03:15)
[2022-08-12] MEDS: NOREPINEPHRINE 4 MG in SODIUM CHLORIDE 0.9% 250 ML IV SCH ×2 (04:20→13:28)
[2022-08-12 04:38] LABS: Calcium 7.7 mg/dL (8.4-10.2)
[2022-08-12 05:04] LABS: Anisocytosis Slight; HCT 28.2 % (34.0-46.0); HGB 8.4 gm/dL (11.4-16.0); Hypochromasia Marked; MCH 27.1 pg (25.0-35.0); MCHC 29.8 g/dL (31.0-37.0); MCV 91.1 fL (80.0-100.0); Mean Platelet Volume 15.3; Poikilocytosis Marked; RBC 3.09 m/uL (3.80-5.40); RDW 16.6 % (11.5-15.5)
[2022-08-12 05:44] LABS: ABG HCO3 17 mmol/L (21-25); ABG Oxygen Saturation 97.8 % (94-97); ABG PCO2 29 mmHg (35-45); ABG PH 7.38 (7.35-7.45); ABG PO2 87 mmHg (83-108); ABG TCO2 18 mmol/L (19-24); Allen Test Performed? Yes
[2022-08-12 05:55] LABS: Band Neutrophils % 1 %; Lymphocytes # (M) 0.17 k/uL (1.0-4.8); Monocytes # (M) 0.42 k/uL (0-1.0); Neutrophils % (M) 93 %; Nucleated Red Blood Cells 1 /100 WBC (0-0); Total Cells Counted 200; WBC 8.4 k/uL (3.8-10.6)
[2022-08-12 05:56] LABS: Platelet Count 44 k/uL (150-450); Polychromasia Present
[2022-08-12 06:26] LABS: Glucose,Whole Blood 381 mg/dL (70-110)
[2022-08-12] MEDS: INSULIN ASPART (NovoLOG) 100 UNIT/ML VIAL SQ SCH ×6 (06:31→18:25)
[2022-08-12] MEDS ORDERED: INSULIN DETEMIR (LEVEMIR) 100 UNIT/ML SYR SQ SCH (07:00)
--- NOTE | 2022-08-12 07:14 | XR ---
EXAMINATION TYPE: XR chest 1V portable DATE OF EXAM: 08/12/2022 COMPARISON: Chest x-ray 08/11/2022 HISTORY: Intubated TECHNIQUE: Single frontal view of the chest is obtained. FINDINGS: Endotracheal tube, NG tube, left subclavian central venous catheter are overlying appropri ate positions. Lung volumes are low and the patient is rotated. Bilateral airspace disease persists a nd is perhaps more confluent. No evident pneumothorax or sizable effusion. Cardiac mediastinal silhou ette is unchanged. Aorta is dense. Proximal right humerus shows evidence of prior fracture of indeter minate age. There are overlying artifacts. IMPRESSION: Correlate for pneumonia, ARDS, congestive heart failure not excluded
[2022-08-12] MEDS: FUROSEMIDE 10 MG/ML 10 ML VIAL IV SCH (08:10)
[2022-08-12] MEDS: PANTOPRAZOLE 40 MG/10 ML VIAL IV SCH (08:10)
[2022-08-12] MEDS: LACTULOSE 20 GM/30 ML CUP PO SCH (08:10)
[2022-08-12] MEDS: RIFAXIMIN 550 MG TABLET PO SCH ×2 (08:10→20:18)
[2022-08-12] MEDS: CHLORHEXIDINE GLUCONATE 15 ML CUP MUCOUS MEM SCH ×2 (08:10→20:18)
[2022-08-12] MEDS: IPRATROPIUM-ALBUTEROL 3 ML NEB INHALATION PRN ×2 (08:14→15:30)
--- NOTE | 2022-08-12 08:38 | P.PN ---
Subjective Progress Note Date: 08/12/22 This is a 67-year-old female patient with known history of nonalcoholic liver failure/cirrhosis. The patient has liver cirrhosis due to fatty liver/drug induced cirrhosis. The patient has been seen by the GI service at the [facility]. She underwent a TIPS procedures as the patient was requiring multiple episodes of paracentesis over the years. The patient has had previous episodes of massive GI bleed and this was secondary to portal hypertension and esophageal varices. Taking care of this patient in the past and the intensive care unit. My last encounter with her was in June 2021 and backbench I treated with shortness of breath and she had large bilateral pleural effusion and atelectasis and she was hypoxic and she was managed accordingly. The patient also has a long list of comorbid conditions Primus related to her liver cirrhosis. She is diabetic and she has known history of coronary artery disease. The patient came in yesterday to the emergency department with acute respiratory distress. This started a few days prior to her admission. She was confused and not a whole lot of history was obtained from her in the emergency. She was reporting no fever or chills. No aspiration. The patient was in significant distress. They tried on BiPAP initially and she failed and subsequently she got intubated and placed on a mechanical ventilator. Post intubation chest x-ray showed extensive bilateral lung consolidations more so on the right. A repeat chest x-ray was on this morning and it is humid and G-tube are again seen and the patient has extensive bilateral airspace disease seen. This morning, the patient is sedated with propofol running at 20 mcg/kg/m. She is on assist control of 28 with a tidal volume of 450 and FiO2 of 90% with a PEEP of 5. Her blood work from this morning shows a white cell count of 6.7 which dropped from 15.1. Hemoglobin is down to 6.2 from a baseline of 7.8 and a platelet count was 91,000 yesterday. Her INR today is 1.7 with a PT of 17.8. The patient also has a component of and I get metabolic acidosis with a gap of 16 at the time of admission, current serum bicarbs of 14 with a gap of 12 and sodium level of 136. Potassium level is at 4.7. Her lactic acid initially was 4.6-1.9. Her Calcium Is at 7.7. Bilirubin Is at 1. LFTs Are Normal. Serum Albumin Is at 2.7. Covid 19 Testing Was Negative. Influenza Screen Was Negative. Alcohol Level Was Negative. Most Recent Blood Gas Shows a pH of 7.34 with a PCO2 of 25 and PO2 of 87. She Was Borderline Hypotensive. She Was Given 2 Doses of Albumin Yesterday 25%. She Was Also Given a Bolus of Saline in the Emergency Department. The Bolus of Saline was in order of 500 mL. Currently she is on a bicarbonate infusion running at a rate of 100 mL an hour. Urine output is extremely low and order a fasting cc on an hourly basis. Antibiotic coverage was also provided and the patient was started on IV Zosyn. She is on pressors and this was started yesterday and norepinephrine is O- 0.06 mcg/kg/m. 08/12/2022, the patient remains in septic shock with evidence of multisystem organ failure. As mentioned earlier, this 67-year-old female patient has liver cirrhosis and chronic kidney disease. The patient has bilateral extensive pneumonia with respiratory failure, hypotension, shock and sepsis. She presented to unresponsive and she went into respiratory failure requiring intubation and mechanical ventilation. The blood cultures came back positive for Streptococcus pneumonia and the patient is currently on a combination of IV Rocephin and vancomycin. Cultures yielded yesterday. Note that the patient was hypotensive. The patient has a questionable with resuscitation. The patient initially was given IV fluids. Nevertheless, she has extensive third spacing and signs of fluid overload/in all 4 extremities and mainly in the legs. She was given IV albumin yesterday. Subsequently, she was placed on a bicarbonate infusion which is running at the rate of 100 and hour. Urine output is minimal in order of 5 mL. Lasix has been tried by nephrology without any success. On today's blood work, the creatinine is on the rise at 2.48 with a BMI 51. Sodium is 133. The patient remains hypotensive and she is pressors dependent and she is requiring norepinephrine at a dose of 0.08 microvascular kilogram per minutes. She has a triple-lumen cath in the subclavian vein. The CVP is currently at 22. The chest x-ray showing dense bilateral pulmonary infiltrates. The patient remains off alcohol which is running at 26 mcg/kg/m. She is on a mechanical ventilator and she is on assist control mode at a rate of 28 with a tidal volume of 450 and FiO2 of 70% and a PEEP of 5. The pH is 7.38 with pCO2 of 29 and pO2 of 87. The white suppositive 0.4 with a hemoglobin of 8.4. Blood sugars at 381. Sodium is 133. She recently units of packed RBC yesterday for low hemoglobin. No signs of any GI bleeding. Orogastric tube is in place. At the feeding was started yesterday and patient is currently on vitamin HP at that eighth of 10 mL an hour. No other issues for now. She does have extensive edema and third spacing. On a separate note, the patient went into atrial fibrillation with rapid response. Overnight. The patient was loaded with amiodarone and currently she is continuing her loading and she is on a maintenance of 1 mg/m. Echocardiogram was done yesterday and the patient was found to have a preserved LV function with an ejection fraction of 55-60%. There was evidence of moderate to severe dilatation of the right ventricle and right ventricular systolic pressure of 71 and she also did demonstrate mild aortic stenosis and moderate to severe tricuspid regurgitation. Objective - Vital Signs Vital signs: Vital Signs Temp 98.4 F 08/12/22 07:00 Pulse 128 H 08/12/22 08:18 Resp 28 H 08/12/22 07:00 BP 100/55 08/12/22 07:00 Pulse Ox 94 L 08/12/22 07:00 FiO2 70 08/12/22 08:13 Intake & Output 08/11/22 08/12/22 08/12/22 18:59 06:59 18:59 Intake Total 6810.710 8264.092 368.828 Output Total 35 130 23 Balance 7401.644 2170.092 345.828 Weight 86.4 kg Intake: IV 1309 1631.2 245.3 0.9 pressure bag 9 48 12 Amio bolus 100 Amiodarone 1mg dose 133.2 33.3 Rocephin 50 Sodium Bicarbonate 1200 1200 200 Zosyn 100 100 Intake, IV Titration 312.803 415.892 73.528 Amount Norepinephrine 4 mg In 218.901 254.000 Sodium Chloride 0.9% 250 ml @ 0.02 MCG/KG/MIN 6. 394 mls/hr IV .Q24H [facility] Rx#:[id number] propofoL 1,000 mg In 93.902 161.892 73.528 Empty Bag 1 bag @ 15 MCG/ KG/MIN 7.552 mls/hr IV . [id number] [facility] Rx#:[id number] Tube Feeding 60 20 Blood Product 310 Rc As-1 Unit 310 [id number] Other 30 30 Output: Urine 35 130 23 Other: Voiding Method Indwelling Catheter Indwelling Catheter ABP, PAP, CO, CI - Last Documented Arterial Blood Pressure 98/45 - Exam Gen. appearance the patient currently intubated on a mechanical ventilator. She has an orogastric tube in place. There is also an NG tube in place. No evidence of any bleed from the NG tube. she is calm and comfortable and symptom is a mechanical ventilator. Head exam was generally normal. There was no scleral icterus or corneal arcus. Mucous membranes were moist. Neck was supple and without jugular venous distension, thyromegaly, or carotid bruits. Carotids were easily palpable bilaterally. There was no adenopathy. Lungs sounds are diminished in lung bases , otherwise breasts: Equal and symmetrical. scattered rhonchi. Scattered crackles in the mid and lower lung win. Heart sounds are regular and there is accentuation of the second heart sound, probably related to underlying pulmonary hypertension. Faint murmur systolic ejection murmur grade 2/6 is also appreciated. Abdomen is distended and the patient has underlying ascites. His fluid wave and shifting dullness. There is also some splenomegaly. No direct tenderness. No rebound tensile guarding. Patient has a small umbilical hernia. Extremities reviewed extensive amount of edema in all 4 extremities pressure in the legs. the patient has significant third spacing and edema at this point in time. Neurologically, the patient is sedated on propofol. she was also painful semination all 4 extremities. No facial asymmetry. positive cough. Positive gag. Pupils are equal reactive to light. motor functions Lassen objectively assess. Sensory functions cannot be accurately assessed. Examination of the skin revealed no evidence of significant rashes, suspicious appearing nevi or other concerning lesions. - Labs CBC & Chem 7: 08/12/22 03:55 08/12/22 03:55 Labs: Abnormal Lab Results - Last 24 Hours (Table) 08/11/22 08/11/22 08/11/22 Range/Units 06:50 06:50 06:50 RBC (3.80-5.40) m/uL Hgb (11.4-16.0) gm/dL Hct (34.0-46.0) % MCHC (31.0-37.0) g/dL RDW (11.5-15.5) % Plt Count 28 L D (150-450) k/uL Neutrophils # (Manual) (1.3-7.7) k/uL Lymphocytes # 0.3 L (1.0-4.8) k/uL Lymphocytes # (Manual) (1.0-4.8) k/uL Nucleated RBCs (0-0) /100 WBC ABG pCO2 (35-45) mmHg ABG HCO3 (21-25) mmol/L ABG Total CO2 (19-24) mmol/L ABG O2 Saturation (94-97) % Sodium (137-145) mmol/L Carbon Dioxide (22-30) mmol/L BUN (7-17) mg/dL Creatinine (0.52-1.04) mg/dL Glucose (74-99) mg/dL POC Glucose (mg/dL) (70-110) mg/dL Hemoglobin A1c 6.3 H (0.0-6.0) % Calcium (8.4-10.2) mg/dL Procalcitonin 7.10 H (0.02-0.09) ng/mL Urine Appearance (Clear) Urine Protein (Negative) Urine Glucose (UA) (Negative) Urine Blood (Negative) Ur Leukocyte Esterase (Negative) Urine RBC (0-5) /hpf Urine WBC (0-5) /hpf Urine WBC Clumps (None) /hpf Urine Bacteria (None) /hpf Hyaline Casts (0-2) /lpf Urine Mucus (None) /hpf Urine Opiates Screen (NotDetected) U Benzodiazepines Scrn (NotDetected) Crossmatch 08/11/22 08/11/22 08/11/22 Range/Units 06:50 11:28 17:29 RBC (3.80-5.40) m/uL Hgb (11.4-16.0) gm/dL Hct (34.0-46.0) % MCHC (31.0-37.0) g/dL RDW (11.5-15.5) % Plt Count (150-450) k/uL Neutrophils # (Manual) (1.3-7.7) k/uL Lymphocytes # (1.0-4.8) k/uL Lymphocytes # (Manual) (1.0-4.8) k/uL Nucleated RBCs (0-0) /100 WBC ABG pCO2 (35-45) mmHg ABG HCO3 (21-25) mmol/L ABG Total CO2 (19-24) mmol/L ABG O2 Saturation (94-97) % Sodium (137-145) mmol/L Carbon Dioxide (22-30) mmol/L BUN (7-17) mg/dL Creatinine (0.52-1.04) mg/dL Glucose (74-99) mg/dL POC Glucose (mg/dL) 294 H 303 H (70-110) mg/dL Hemoglobin A1c (0.0-6.0) % Calcium (8.4-10.2) mg/dL Procalcitonin (0.02-0.09) ng/mL Urine Appearance (Clear) Urine Protein (Negative) Urine Glucose (UA) (Negative) Urine Blood (Negative) Ur Leukocyte Esterase (Negative) Urine RBC (0-5) /hpf Urine WBC (0-5) /hpf Urine WBC Clumps (None) /hpf Urine Bacteria (None) /hpf Hyaline Casts (0-2) /lpf Urine Mucus (None) /hpf Urine Opiates Screen (NotDetected) U Benzodiazepines Scrn (NotDetected) Crossmatch See Detail 08/11/22 08/11/22 08/11/22 Range/Units 17:35 17:35 17:35 RBC 2.75 L (3.80-5.40) m/uL Hgb 7.8 L D (11.4-16.0) gm/dL Hct 25.1 L (34.0-46.0) % MCHC (31.0-37.0) g/dL RDW 16.4 H (11.5-15.5) % Plt Count 34 L (150-450) k/uL Neutrophils # (Manual) (1.3-7.7) k/uL Lymphocytes # (1.0-4.8) k/uL Lymphocytes # (Manual) (1.0-4.8) k/uL Nucleated RBCs (0-0) /100 WBC ABG pCO2 (35-45) mmHg ABG HCO3 (21-25) mmol/L ABG Total CO2 (19-24) mmol/L ABG O2 Saturation (94-97) % Sodium 136 L (137-145) mmol/L Carbon Dioxide 14 L (22-30) mmol/L BUN 47 H (7-17) mg/dL Creatinine 2.41 H (0.52-1.04) mg/dL Glucose 293 H (74-99) mg/dL POC Glucose (mg/dL) (70-110) mg/dL Hemoglobin A1c (0.0-6.0) % Calcium 7.7 L (8.4-10.2) mg/dL Procalcitonin (0.02-0.09) ng/mL Urine Appearance (Clear) Urine Protein (Negative) Urine Glucose (UA) (Negative) Urine Blood (Negative) Ur Leukocyte Esterase (Negative) Urine RBC (0-5) /hpf Urine WBC (0-5) /hpf Urine WBC Clumps (None) /hpf Urine Bacteria (None) /hpf Hyaline Casts (0-2) /lpf Urine Mucus (None) /hpf Urine Opiates Screen Detected H (NotDetected) U Benzodiazepines Scrn Detected H (NotDetected) Crossmatch 08/11/22 08/11/22 08/12/22 Range/Units 17:35 23:56 03:55 RBC 3.09 L (3.80-5.40) m/uL Hgb 8.4 L (11.4-16.0) gm/dL Hct 28.2 L (34.0-46.0) % MCHC 29.8 L (31.0-37.0) g/dL RDW 16.6 H (11.5-15.5) % Plt Count 44 L (150-450) k/uL Neutrophils # (Manual) 7.80 H (1.3-7.7) k/uL Lymphocytes # (1.0-4.8) k/uL Lymphocytes # (Manual) 0.17 L (1.0-4.8) k/uL Nucleated RBCs 1 H (0-0) /100 WBC ABG pCO2 (35-45) mmHg ABG HCO3 (21-25) mmol/L ABG Total CO2 (19-24) mmol/L ABG O2 Saturation (94-97) % Sodium (137-145) mmol/L Carbon Dioxide (22-30) mmol/L BUN (7-17) mg/dL Creatinine (0.52-1.04) mg/dL Glucose (74-99) mg/dL POC Glucose (mg/dL) 344 H (70-110) mg/dL Hemoglobin A1c (0.0-6.0) % Calcium (8.4-10.2) mg/dL Procalcitonin (0.02-0.09) ng/mL Urine Appearance Cloudy H (Clear) Urine Protein 2+ H (Negative) Urine Glucose (UA) Trace H (Negative) Urine Blood Moderate H (Negative) Ur Leukocyte Esterase Moderate H (Negative) Urine RBC 127 H (0-5) /hpf Urine WBC 48 H (0-5) /hpf Urine WBC Clumps Rare H (None) /hpf Urine Bacteria Rare H (None) /hpf Hyaline Casts 8 H (0-2) /lpf Urine Mucus Occasional H (None) /hpf Urine Opiates Screen (NotDetected) U Benzodiazepines Scrn (NotDetected) Crossmatch 08/12/22 08/12/22 08/12/22 Range/Units 03:55 05:42 06:23 RBC (3.80-5.40) m/uL Hgb (11.4-16.0) gm/dL Hct (34.0-46.0) % MCHC (31.0-37.0) g/dL RDW (11.5-15.5) % Plt Count (150-450) k/uL Neutrophils # (Manual) (1.3-7.7) k/uL Lymphocytes # (1.0-4.8) k/uL Lymphocytes # (Manual) (1.0-4.8) k/uL Nucleated RBCs (0-0) /100 WBC ABG pCO2 29 L (35-45) mmHg ABG HCO3 17 L (21-25) mmol/L ABG Total CO2 18 L (19-24) mmol/L ABG O2 Saturation 97.8 H (94-97) % Sodium 133 L (137-145) mmol/L Carbon Dioxide 14 L (22-30) mmol/L BUN 51 H (7-17) mg/dL Creatinine 2.48 H (0.52-1.04) mg/dL Glucose 355 H (74-99) mg/dL POC Glucose (mg/dL) 381 H (70-110) mg/dL Hemoglobin A1c (0.0-6.0) % Calcium 7.7 L (8.4-10.2) mg/dL Procalcitonin (0.02-0.09) ng/mL Urine Appearance (Clear) Urine Protein (Negative) Urine Glucose (UA) (Negative) Urine Blood (Negative) Ur Leukocyte Esterase (Negative) Urine RBC (0-5) /hpf Urine WBC (0-5) /hpf Urine WBC Clumps (None) /hpf Urine Bacteria (None) /hpf Hyaline Casts (0-2) /lpf Urine Mucus (None) /hpf Urine Opiates Screen (NotDetected) U Benzodiazepines Scrn (NotDetected) Crossmatch Microbiology - Last 24 Hours (Table) 08/10/22 21:30 Blood Culture - Preliminary Blood No Growth after 24 hours 08/11/22 17:35 Urine Culture - Preliminary Urine,Voided 08/11/22 12:20 Fungal Culture - Preliminary Bronchoalviolar Lavage - Right 08/11/22 12:20 Acid Fast Bacilli Culture - Preliminary Bronchoalviolar Lavage - Right 08/11/22 12:20 Bronchial Washings Culture - Preliminary Bronchoalviolar Lavage - Right 08/10/22 21:13 Blood Culture Gram Stain - Preliminary Blood Blood Culture - Preliminary Streptococcus pneumoniae 08/11/22 05:18 Gram Stain - Preliminary Sputum Sputum Culture - Preliminary 08/10/22 21:15 Blood Culture - Final Blood Assessment and Plan Plan: acute hypoxic respiratory failure with extensive bilateral pulmonary infiltrates/pneumonia. rule out community-acquired pneumonia versus aspiration pneumonia. the patient has dense consolidations bilaterally right more than left. Currently she is intubated on a mechanical ventilator. The patient continues to have dense bilateral pulmonary infiltrates consistent with pneumococcal pneumonia and the patient remains intubated on a mechanical ventilator. Chest x-ray and blood gases were noted. Acute septic shock secondary to strep pneumonia. The patient continues to be pressor dependent. Hypotension/shock secondary to above , on norepinephrine acute kidney injury , and the patient is oliguric at this point in time. Note that the patient did have some chronic kidney insufficiency at baseline. There is a component of an acute on top of chronic kidney failure. She does have a baseline stage III chronic kidney disease. She has a Peterson catheter in place. The patient had an ultrasound the kidneys that showed no evidence of any hydronephrosis. The patient has an acute kidney injury on top of chronic kidney disease probably related to hypotension and sepsis. Hepatorenal syndrome cannot be completely excluded. She does have mild to moderate ascites, no evidence of any abdominal compartmental syndrome. Acute metabolic acidosis with lactic acidosis, improving, continues to be on bicarb infusion acute on top of chronic anemia with a hemoglobin drop down to 6.2, no indication for an acute GI bleed at this point in time , subsequent hemoglobin from today is improved and is up to 8.4 Altered mental status secondary to above. there may be also a component of metabolic encephalopathy/ hepatic encephalopathy and the patient's serum ammonia level was 53. liver cirrhosis/ascites previous history of TIPS regarding liver cirrhosis and recurrent ascites history of pancytopenia secondary to liver failure/hypersplenism portal hypertension. History of GI bleed, inactive in stable for now questionable lung nodues for which a PET scan was ordered for this patient and the patient was deactivated from the transplantation list. we do not have any update on her candidacy for liver transplant at this point in time. My information from last year was that the patient was deactivated. history of psoriatic arthritis history of diabetes mellitus currently on insulin pump. Blood sugar seems to be under poor control monitor the blood sugar from today is quite elevated. Fibromyalgia coronary artery disease without previous history of any underlying cardiomyopathy with CHF. hyperbilirubinemia secondary to liver cirrhosis Severe pulmonary hypertension, consider possibility of hepatopulmonary syndrome. She has preserved LV function. Mild aortic stenosis New-onset A. fib fibrillation with rapid ventricular response. Plan continue ventilator support The patient is sedated with propofol, and sedation will be continued Continue the bicarbonate infusion and currently is running at the rate of 100 mL an hour Discontinue Lasix, no improvement in urine output Continue amiodarone loading Gradually wean off the norepinephrine infusion ultrasound abdomen ruled out hydronephrosis, nevertheless, there is a mild to moderate ascites without evidence of any abdominal compartmental syndrome. May consider paracentesis if there is any further increase of ascites. Check pro calcitonin level is quite elevated urosepsis and the Levophed is at 7.1 Check blood cultures is positive for strep pneumonia Continue IV Rocephin and vancomycin pending further STEPHON on the strep pneumo Hemoglobin is stable for now enteral feeding for nutritional support and diet will be consulted With the patient on lactulose 20 mL once a day establish a regular bowel movement activity Continue rifaximin mean 550 mg by mouth twice a day Obtain a vascular surgery consultation for insertion of a hemodialysis catheter. The patient's platelet count is currently at 44 In terms of blood sugar control, will increase Levemir insulin 20 units daily and addition to the sliding scale coverage, will also give 5 units of NovoLog with scale every 6 hours Obtain further information from family regarding her candidacy for transplantation at her current status Re: Transplant at the [facility] With the patient on insulin sliding scale coverage Lactic acid levels improved LFTs are normal Check a baseline cortisol level Repeat all labs by tomorrow We'll continue to follow. Condition is obviously critical. We'll make further recommendations based on her progress. High mortality risk. Will continue to follow. His ventilation within a more than 30 minutes. Time with Patient: Greater than 30
[2022-08-12] MEDS ORDERED: LACTULOSE 20 GM/30 ML CUP PO SCH (09:00)
[2022-08-12] MEDS: DEXTROSE 5% IN WATER 1,000 ML with SODIUM BICARB (1 MEQ/ML) 100 ML IV SCH ×2 (09:16→20:18)
[2022-08-12] MEDS: AMIODARONE 450 MG in DEXTROSE 5% IN WATER 250 ML IV SCH ×2 (09:30)
[2022-08-12 11:33] LABS: Glucose,Whole Blood 392 mg/dL (70-110)
--- NOTE | 2022-08-12 11:50 | P.PN ---
Subjective Principal diagnosis: Zhou not working On VDRF 70% Min UO Edema ++ Cr stable On levo 0.09, Amiodarone, Vanco, HPI: Patient is a 67-year-old female seen in renal consultation for acute kidney injury on chronic kidney disease. Patient has chronic kidney disease stage IIIB with baseline creatinine the range of 1.1-1.5. Patient has history of nonalcoholic liver cirrhosis. Patient presented to the hospital with worsening shortness of breath and was subsequently diagnosed with pneumonia. She did receive 500 mL bolus of normal saline and is currently maintained on bicarb drip running at 100 mL an hour. She also has IV albumin ordered. She is on Levophed. Patient is oliguric. Hemoglobin was 6.2 today and she scheduled to r eceive 2 units of blood. Albumin is 2.7. Patient does have history of diabetes as well as coronary artery disease. She is currently intubated. She is a 90% FiO2. Patient has severe edema in the lower extremities. Her abdomen does not look distended. There is no evidence of any acute bleeding per the nurse. Patient does have history of variceal bleed. Objective - Vital Signs Vital signs: Vital Signs Temp 98.6 F 08/12/22 08:00 Pulse 147 H 08/12/22 11:00 Resp 23 08/12/22 11:00 BP 112/56 08/12/22 11:00 Pulse Ox 95 08/12/22 11:00 FiO2 70 08/12/22 11:00 Intake & Output 08/11/22 08/12/22 08/12/22 18:59 06:59 18:59 Intake Total 0024.223 3721.092 450.355 Output Total 35 130 63 Balance 0819.314 5377.092 387.355 Weight 86.4 kg Intake: IV 1309 1631.2 263.3 0.9 pressure bag 9 48 30 Amio bolus 100 Amiodarone 1mg dose 133.2 33.3 Rocephin 50 Sodium Bicarbonate 1200 1200 200 Zosyn 100 100 Intake, IV Titration 312.803 415.892 87.055 Amount Norepinephrine 4 mg In 218.901 254.000 Sodium Chloride 0.9% 250 ml @ 0.02 MCG/KG/MIN 6. 394 mls/hr IV .[facility] Rx#:[id number] propofoL 1,000 mg In 93.902 161.892 87.055 Empty Bag 1 bag @ 15 MCG/ KG/MIN 7.552 mls/hr IV . [id number] Rx#:[id number] Tube Feeding 60 70 Blood Product 310 Rc As-1 Unit 310 [id number] Other 30 30 Output: Urine 35 130 63 Other: Voiding Method Indwelling Catheter Indwelling Catheter Indwelling Catheter ABP, PAP, CO, CI - Last Documented Arterial Blood Pressure 117/56 HEENT: No facial assymetry, JVP? LUNGS: Clear on VDRF HS: A Fib ABD: soft, Ascites? EXT: 2= Edema all 4 Ext [employer]: sedated - Labs CBC & Chem 7: 08/12/22 03:55 08/12/22 03:55 Labs: Abnormal Lab Results - Last 24 Hours (Table) 08/11/22 08/11/22 08/11/22 Range/Units 06:50 06:50 17:29 RBC (3.80-5.40) m/uL Hgb (11.4-16.0) gm/dL Hct (34.0-46.0) % MCHC (31.0-37.0) g/dL RDW (11.5-15.5) % Plt Count (150-450) k/uL Neutrophils # (Manual) (1.3-7.7) k/uL Lymphocytes # (Manual) (1.0-4.8) k/uL Nucleated RBCs (0-0) /100 WBC ABG pCO2 (35-45) mmHg ABG HCO3 (21-25) mmol/L ABG Total CO2 (19-24) mmol/L ABG O2 Saturation (94-97) % Sodium (137-145) mmol/L Carbon Dioxide (22-30) mmol/L BUN (7-17) mg/dL Creatinine (0.52-1.04) mg/dL Glucose (74-99) mg/dL POC Glucose (mg/dL) 303 H (70-110) mg/dL Hemoglobin A1c 6.3 H (0.0-6.0) % Calcium (8.4-10.2) mg/dL Urine Appearance (Clear) Urine Protein (Negative) Urine Glucose (UA) (Negative) Urine Blood (Negative) Ur Leukocyte Esterase (Negative) Urine RBC (0-5) /hpf Urine WBC (0-5) /hpf Urine WBC Clumps (None) /hpf Urine Bacteria (None) /hpf Hyaline Casts (0-2) /lpf Urine Mucus (None) /hpf Urine Opiates Screen (NotDetected) U Benzodiazepines Scrn (NotDetected) Crossmatch See Detail 08/11/22 08/11/22 08/11/22 Range/Units 17:35 17:35 17:35 RBC 2.75 L (3.80-5.40) m/uL Hgb 7.8 L D (11.4-16.0) gm/dL Hct 25.1 L (34.0-46.0) % MCHC (31.0-37.0) g/dL RDW 16.4 H (11.5-15.5) % Plt Count 34 L (150-450) k/uL Neutrophils # (Manual) (1.3-7.7) k/uL Lymphocytes # (Manual) (1.0-4.8) k/uL Nucleated RBCs (0-0) /100 WBC ABG pCO2 (35-45) mmHg ABG HCO3 (21-25) mmol/L ABG Total CO2 (19-24) mmol/L ABG O2 Saturation (94-97) % Sodium 136 L (137-145) mmol/L Carbon Dioxide 14 L (22-30) mmol/L BUN 47 H (7-17) mg/dL Creatinine 2.41 H (0.52-1.04) mg/dL Glucose 293 H (74-99) mg/dL POC Glucose (mg/dL) (70-110) mg/dL Hemoglobin A1c (0.0-6.0) % Calcium 7.7 L (8.4-10.2) mg/dL Urine Appearance (Clear) Urine Protein (Negative) Urine Glucose (UA) (Negative) Urine Blood (Negative) Ur Leukocyte Esterase (Negative) Urine RBC (0-5) /hpf Urine WBC (0-5) /hpf Urine WBC Clumps (None) /hpf Urine Bacteria (None) /hpf Hyaline Casts (0-2) /lpf Urine Mucus (None) /hpf Urine Opiates Screen Detected H (NotDetected) U Benzodiazepines Scrn Detected H (NotDetected) Crossmatch 08/11/22 08/11/22 08/12/22 Range/Units 17:35 23:56 03:55 RBC 3.09 L (3.80-5.40) m/uL Hgb 8.4 L (11.4-16.0) gm/dL Hct 28.2 L (34.0-46.0) % MCHC 29.8 L (31.0-37.0) g/dL RDW 16.6 H (11.5-15.5) % Plt Count 44 L (150-450) k/uL Neutrophils # (Manual) 7.80 H (1.3-7.7) k/uL Lymphocytes # (Manual) 0.17 L (1.0-4.8) k/uL Nucleated RBCs 1 H (0-0) /100 WBC ABG pCO2 (35-45) mmHg ABG HCO3 (21-25) mmol/L ABG Total CO2 (19-24) mmol/L ABG O2 Saturation (94-97) % Sodium (137-145) mmol/L Carbon Dioxide (22-30) mmol/L BUN (7-17) mg/dL Creatinine (0.52-1.04) mg/dL Glucose (74-99) mg/dL POC Glucose (mg/dL) 344 H (70-110) mg/dL Hemoglobin A1c (0.0-6.0) % Calcium (8.4-10.2) mg/dL Urine Appearance Cloudy H (Clear) Urine Protein 2+ H (Negative) Urine Glucose (UA) Trace H (Negative) Urine Blood Moderate H (Negative) Ur Leukocyte Esterase Moderate H (Negative) Urine RBC 127 H (0-5) /hpf Urine WBC 48 H (0-5) /hpf Urine WBC Clumps Rare H (None) /hpf Urine Bacteria Rare H (None) /hpf Hyaline Casts 8 H (0-2) /lpf Urine Mucus Occasional H (None) /hpf Urine Opiates Screen (NotDetected) U Benzodiazepines Scrn (NotDetected) Crossmatch 08/12/22 08/12/22 08/12/22 Range/Units 03:55 05:42 06:23 RBC (3.80-5.40) m/uL Hgb (11.4-16.0) gm/dL Hct (34.0-46.0) % MCHC (31.0-37.0) g/dL RDW (11.5-15.5) % Plt Count (150-450) k/uL Neutrophils # (Manual) (1.3-7.7) k/uL Lymphocytes # (Manual) (1.0-4.8) k/uL Nucleated RBCs (0-0) /100 WBC ABG pCO2 29 L (35-45) mmHg ABG HCO3 17 L (21-25) mmol/L ABG Total CO2 18 L (19-24) mmol/L ABG O2 Saturation 97.8 H (94-97) % Sodium 133 L (137-145) mmol/L Carbon Dioxide 14 L (22-30) mmol/L BUN 51 H (7-17) mg/dL Creatinine 2.48 H (0.52-1.04) mg/dL Glucose 355 H (74-99) mg/dL POC Glucose (mg/dL) 381 H (70-110) mg/dL Hemoglobin A1c (0.0-6.0) % Calcium 7.7 L (8.4-10.2) mg/dL Urine Appearance (Clear) Urine Protein (Negative) Urine Glucose (UA) (Negative) Urine Blood (Negative) Ur Leukocyte Esterase (Negative) Urine RBC (0-5) /hpf Urine WBC (0-5) /hpf Urine WBC Clumps (None) /hpf Urine Bacteria (None) /hpf Hyaline Casts (0-2) /lpf Urine Mucus (None) /hpf Urine Opiates Screen (NotDetected) U Benzodiazepines Scrn (NotDetected) Crossmatch 08/12/22 Range/Units 11:32 RBC (3.80-5.40) m/uL Hgb (11.4-16.0) gm/dL Hct (34.0-46.0) % MCHC (31.0-37.0) g/dL RDW (11.5-15.5) % Plt Count (150-450) k/uL Neutrophils # (Manual) (1.3-7.7) k/uL Lymphocytes # (Manual) (1.0-4.8) k/uL Nucleated RBCs (0-0) /100 WBC ABG pCO2 (35-45) mmHg ABG HCO3 (21-25) mmol/L ABG Total CO2 (19-24) mmol/L ABG O2 Saturation (94-97) % Sodium (137-145) mmol/L Carbon Dioxide (22-30) mmol/L BUN (7-17) mg/dL Creatinine (0.52-1.04) mg/dL Glucose (74-99) mg/dL POC Glucose (mg/dL) 392 H (70-110) mg/dL Hemoglobin A1c (0.0-6.0) % Calcium (8.4-10.2) mg/dL Urine Appearance (Clear) Urine Protein (Negative) Urine Glucose (UA) (Negative) Urine Blood (Negative) Ur Leukocyte Esterase (Negative) Urine RBC (0-5) /hpf Urine WBC (0-5) /hpf Urine WBC Clumps (None) /hpf Urine Bacteria (None) /hpf Hyaline Casts (0-2) /lpf Urine Mucus (None) /hpf Urine Opiates Screen (NotDetected) U Benzodiazepines Scrn (NotDetected) Crossmatch Microbiology - Last 24 Hours (Table) 08/10/22 21:30 Blood Culture - Preliminary Blood No Growth after 24 hours 08/11/22 17:35 Urine Culture - Preliminary Urine,Voided 08/11/22 12:20 Fungal Culture - Preliminary Bronchoalviolar Lavage - Right 08/11/22 12:20 Acid Fast Bacilli Culture - Preliminary Bronchoalviolar Lavage - Right 08/11/22 12:20 Bronchial Washings Culture - Preliminary Bronchoalviolar Lavage - Right 08/10/22 21:13 Blood Culture Gram Stain - Preliminary Blood Blood Culture - Preliminary Streptococcus pneumoniae 08/11/22 05:18 Gram Stain - Preliminary Sputum Sputum Culture - Preliminary 08/10/22 21:15 Blood Culture - Final Blood Assessment and Plan Assessment: Assessment: 1. Acute kidney injury secondary to ATN secondary to septic shock and anemia. Oliguric. 2. Septic shock secondary to pneumonia on antibiotics and Levophed. 3. Metabolic acidosis secondary to acute kidney injury. 4. Volume overload.edema++ and CHF CXR 5. Nonalcoholic liver cirrhosis. 6. Acute blood loss anemia. No active bleeding noted. Scheduled to receive 2 units of blood today. Hemoglobin 6.2. 7. Acute hypoxic respiratory failure. Plan: cont IV Lasix 80 mg twice daily. Start [employer], HD when access available, HD 2.5 Hrs, UF 1 lit as Tolerated
[2022-08-12] MEDS ORDERED: VANCOMYCIN 1,750 MG in SODIUM CHLORIDE 0.9% 500 ML 500 ML IVPB ONE (12:00)
[2022-08-12] MEDS ORDERED: HEPARIN SODIUM 1,000 UN/ML (10ML VL) MISCELLANE ONE (12:14)
[2022-08-12] MEDS ORDERED: LIDOCAINE 1% INJ 10MG/ML (20 ML MDV) ONE (12:20)
--- NOTE | 2022-08-12 12:55 | P.GSCN ---
History of Present Illness History of present illness: 67-year-old white female patient was seen in distal care unit. Patient has been intubated because of pneumonia Blkaehen also has a history of for diabetes chronic kidney disease stage III patient also has a history of for cirrhosis of liver nonalcoholic I will consulted for placement of a dialysis catheter Neck is supple patient has been intubated chest few crackles the lung bases patient has a marked swelling of the lower extremity Abdomen soft nontender vascular femorals are 1+ bilateral pedal plan is placement point of dialysis catheter risk and complication discussed Past Medical History Past Medical History: Coronary Artery Disease (CAD), Cancer, Chest Pain / Angina, Heart Failure, Diabetes Mellitus, Fibromyalgia, GERD/Reflux, Hyperli pidemia, Liver Disease, Renal Disease, Skin Disorder Additional Past Medical History / Comment(s): Non-ETOH cirrhosis, ascities, esophageal varices, pancytopenia, thrombycytopenia, anemia, IDDM with insulin pump, several nodules both lungs being monitored, urinary leakage at times and pt states she has diarrhea much of the time, psoriasis, cervical cancer, pt states 2 blockages in back of heart,was on transplant list but was deactivated at [facility] in [place]. plan to reevaluate soon. hx migraines, 2 seizures post back surgery, hiatal hernia, tips procedure. current right humerus fracture from a fall at home. currently in sling History of Any Multi-Drug Resistant Organisms: None Reported Past Surgical History: Back Surgery, Breast Surgery, Cholecystectomy, Heart Catheterization, Hysterectomy, Orthopedic Surgery, Tonsillectomy, Tubal Ligation Additional Past Surgical History / Comment(s): multi large volume Paracentesis, EGD with banded esophageal varices, colonoscopies, bilateral rotator cuff repairs, bilateral breast bx-benign, back surgery in 2014, TIPS Past Anesthesia/Blood Transfusion Reactions: Previous Problems w/ Anesthesia, Family History of Problems w/ Anesthesia, Motion Sickness Additional Past Anesthesia/Blood Transfusion Reaction / Comm: difficulty breathing when coming out of anesthesia; difficulty waking up. Hypotension with general anesthesia. blood transfusions without reaction. sister- slow coming out and PONV Past Psychological History: No Psychological Hx Reported Additional Psychological History / Comment(s): . Smoking Status: Former smoker Past Alcohol Use History: None Reported Additional Past Alcohol Use History / Comment(s): smoked >20 years, quit in the . Smoked 1 ppd. Past Drug Use History: None Reported - Past Family History Mother Family Medical History: Cancer Additional Family Medical History / Comment(s): skin cancer. Father Family Medical History: Coronary Artery Disease (CAD) Additional Family Medical History / Comment(s): cabg/pacemaker Brother(s) Family Medical History: Cancer Sister(s) Family Medical History: Cancer, Deep Vein Thrombosis (DVT) Additional Family Medical History / Comment(s): Breast CA. Medications and Allergies Home Medications Medication Instructions Recorded Confirmed Type Ezetimibe [Zetia] 10 mg PO DAILY 09/04/16 08/10/22 History Sertraline [Zoloft] 25 mg PO DAILY 01/12/17 08/10/22 History Atorvastatin [Lipitor] 40 mg PO HS 02/03/20 08/10/22 History Vitamin A Acetate [Vitamin A] 20,000 unit SL DAILY 02/03/20 08/10/22 History Potassium Chloride ER [K-Dur 20] 20 meq PO DAILY 06/24/20 08/10/22 History Midodrine HCl [ProAmatine] 10 mg PO BID 03/15/21 08/10/22 History Pantoprazole Sodium [Protonix] 40 mg PO DAILY 03/15/21 08/10/22 History Furosemide [Lasix] 40 mg PO DAILY 07/25/21 08/10/22 History Montelukast [Singulair] 10 mg PO HS 01/03/22 08/10/22 History INSULIN LISPRO (humaLOG) [humaLOG] See Protocol SQ ACHS 08/10/22 08/10/22 History Insulin Detemir (Levemir) [Levemir] 24 unit SQ DAILY 08/10/22 08/10/22 History Lactulose [Constulose] 20 gm PO DAILY 08/10/22 08/10/22 History Metoprolol Tartrate [Lopressor] 25 mg PO DAILY 08/10/22 08/10/22 History Rifaximin [Xifaxan] 550 mg PO BID 08/10/22 08/10/22 History calcitrioL [Rocaltrol] 0.25 mcg PO MO 08/10/22 08/10/22 History Allergies Allergy/AdvReac Type Severity Reaction Status Date / Time doxycycline Allergy Rash/Hives Verified 07/08/22 19:17 iodine Allergy Rash/Hives Verified 07/08/22 19:17 Penicillins Allergy Rash/Hives Verified 07/08/22 19:17 shellfish derived Allergy Rash/Hives Verified 07/08/22 19:17 Sulfa (Sulfonamide Allergy Rash/Hives Verified 07/08/22 19:17 Antibiotics) venom-honey bee Allergy Anaphylaxis Verified 07/08/22 19:17 [bee venom (honey bee)] Surgical - Exam Vital Signs Temp Pulse Resp BP Pulse Ox 97.8 F 98 38 H 111/46 88 L 08/10/22 19:24 08/10/22 19:24 08/10/22 19:24 08/10/22 19:24 08/10/22 19:24 Results - Labs 08/12/22 03:55 08/12/22 03:55 Abnormal Lab Results - Last 24 Hours (Table) 08/11/22 08/11/22 08/11/22 Range/Units 06:50 06:50 17:29 RBC (3.80-5.40) m/uL Hgb (11.4-16.0) gm/dL Hct (34.0-46.0) % MCHC (31.0-37.0) g/dL RDW (11.5-15.5) % Plt Count (150-450) k/uL Neutrophils # (Manual) (1.3-7.7) k/uL Lymphocytes # (Manual) (1.0-4.8) k/uL Nucleated RBCs (0-0) /100 WBC ABG pCO2 (35-45) mmHg ABG HCO3 (21-25) mmol/L ABG Total CO2 (19-24) mmol/L ABG O2 Saturation (94-97) % Sodium (137-145) mmol/L Carbon Dioxide (22-30) mmol/L BUN (7-17) mg/dL Creatinine (0.52-1.04) mg/dL Glucose (74-99) mg/dL POC Glucose (mg/dL) 303 H (70-110) mg/dL Hemoglobin A1c 6.3 H (0.0-6.0) % Calcium (8.4-10.2) mg/dL Urine Appearance (Clear) Urine Protein (Negative) Urine Glucose (UA) (Negative) Urine Blood (Negative) Ur Leukocyte Esterase (Negative) Urine RBC (0-5) /hpf Urine WBC (0-5) /hpf Urine WBC Clumps (None) /hpf Urine Bacteria (None) /hpf Hyaline Casts (0-2) /lpf Urine Mucus (None) /hpf Urine Opiates Screen (NotDetected) U Benzodiazepines Scrn (NotDetected) Crossmatch See Detail 08/11/22 08/11/22 08/11/22 Range/Units 17:35 17:35 17:35 RBC 2.75 L (3.80-5.40) m/uL Hgb 7.8 L D (11.4-16.0) gm/dL Hct 25.1 L (34.0-46.0) % MCHC (31.0-37.0) g/dL RDW 16.4 H (11.5-15.5) % Plt Count 34 L (150-450) k/uL Neutrophils # (Manual) (1.3-7.7) k/uL Lymphocytes # (Manual) (1.0-4.8) k/uL Nucleated RBCs (0-0) /100 WBC ABG pCO2 (35-45) mmHg ABG HCO3 (21-25) mmol/L ABG Total CO2 (19-24) mmol/L ABG O2 Saturation (94-97) % Sodium 136 L (137-145) mmol/L Carbon Dioxide 14 L (22-30) mmol/L BUN 47 H (7-17) mg/dL Creatinine 2.41 H (0.52-1.04) mg/dL Glucose 293 H (74-99) mg/dL POC Glucose (mg/dL) (70-110) mg/dL Hemoglobin A1c (0.0-6.0) % Calcium 7.7 L (8.4-10.2) mg/dL Urine Appearance (Clear) Urine Protein (Negative) Urine Glucose (UA) (Negative) Urine Blood (Negative) Ur Leukocyte Esterase (Negative) Urine RBC (0-5) /hpf Urine WBC (0-5) /hpf Urine WBC Clumps (None) /hpf Urine Bacteria (None) /hpf Hyaline Casts (0-2) /lpf Urine Mucus (None) /hpf Urine Opiates Screen Detected H (NotDetected) U Benzodiazepines Scrn Detected H (NotDetected) Crossmatch 08/11/22 08/11/22 08/12/22 Range/Units 17:35 23:56 03:55 RBC 3.09 L (3.80-5.40) m/uL Hgb 8.4 L (11.4-16.0) gm/dL Hct 28.2 L (34.0-46.0) % MCHC 29.8 L (31.0-37.0) g/dL RDW 16.6 H (11.5-15.5) % Plt Count 44 L (150-450) k/uL Neutrophils # (Manual) 7.80 H (1.3-7.7) k/uL Lymphocytes # (Manual) 0.17 L (1.0-4.8) k/uL Nucleated RBCs 1 H (0-0) /100 WBC ABG pCO2 (35-45) mmHg ABG HCO3 (21-25) mmol/L ABG Total CO2 (19-24) mmol/L ABG O2 Saturation (94-97) % Sodium (137-145) mmol/L Carbon Dioxide (22-30) mmol/L BUN (7-17) mg/dL Creatinine (0.52-1.04) mg/dL Glucose (74-99) mg/dL POC Glucose (mg/dL) 344 H (70-110) mg/dL Hemoglobin A1c (0.0-6.0) % Calcium (8.4-10.2) mg/dL Urine Appearance Cloudy H (Clear) Urine Protein 2+ H (Negative) Urine Glucose (UA) Trace H (Negative) Urine Blood Moderate H (Negative) Ur Leukocyte Esterase Moderate H (Negative) Urine RBC 127 H (0-5) /hpf Urine WBC 48 H (0-5) /hpf Urine WBC Clumps Rare H (None) /hpf Urine Bacteria Rare H (None) /hpf Hyaline Casts 8 H (0-2) /lpf Urine Mucus Occasional H (None) /hpf Urine Opiates Screen (NotDetected) U Benzodiazepines Scrn (NotDetected) Crossmatch 08/12/22 08/12/22 08/12/22 Range/Units 03:55 05:42 06:23 RBC (3.80-5.40) m/uL Hgb (11.4-16.0) gm/dL Hct (34.0-46.0) % MCHC (31.0-37.0) g/dL RDW (11.5-15.5) % Plt Count (150-450) k/uL Neutrophils # (Manual) (1.3-7.7) k/uL Lymphocytes # (Manual) (1.0-4.8) k/uL Nucleated RBCs (0-0) /100 WBC ABG pCO2 29 L (35-45) mmHg ABG HCO3 17 L (21-25) mmol/L ABG Total CO2 18 L (19-24) mmol/L ABG O2 Saturation 97.8 H (94-97) % Sodium 133 L (137-145) mmol/L Carbon Dioxide 14 L (22-30) mmol/L BUN 51 H (7-17) mg/dL Creatinine 2.48 H (0.52-1.04) mg/dL Glucose 355 H (74-99) mg/dL POC Glucose (mg/dL) 381 H (70-110) mg/dL Hemoglobin A1c (0.0-6.0) % Calcium 7.7 L (8.4-10.2) mg/dL Urine Appearance (Clear) Urine Protein (Negative) Urine Glucose (UA) (Negative) Urine Blood (Negative) Ur Leukocyte Esterase (Negative) Urine RBC (0-5) /hpf Urine WBC (0-5) /hpf Urine WBC Clumps (None) /hpf Urine Bacteria (None) /hpf Hyaline Casts (0-2) /lpf Urine Mucus (None) /hpf Urine Opiates Screen (NotDetected) U Benzodiazepines Scrn (NotDetected) Crossmatch 08/12/22 Range/Units 11:32 RBC (3.80-5.40) m/uL Hgb (11.4-16.0) gm/dL Hct (34.0-46.0) % MCHC (31.0-37.0) g/dL RDW (11.5-15.5) % Plt Count (150-450) k/uL Neutrophils # (Manual) (1.3-7.7) k/uL Lymphocytes # (Manual) (1.0-4.8) k/uL Nucleated RBCs (0-0) /100 WBC ABG pCO2 (35-45) mmHg ABG HCO3 (21-25) mmol/L ABG Total CO2 (19-24) mmol/L ABG O2 Saturation (94-97) % Sodium (137-145) mmol/L Carbon Dioxide (22-30) mmol/L BUN (7-17) mg/dL Creatinine (0.52-1.04) mg/dL Glucose (74-99) mg/dL POC Glucose (mg/dL) 392 H (70-110) mg/dL Hemoglobin A1c (0.0-6.0) % Calcium (8.4-10.2) mg/dL Urine Appearance (Clear) Urine Protein (Negative) Urine Glucose (UA) (Negative) Urine Blood (Negative) Ur Leukocyte Esterase (Negative) Urine RBC (0-5) /hpf Urine WBC (0-5) /hpf Urine WBC Clumps (None) /hpf Urine Bacteria (None) /hpf Hyaline Casts (0-2) /lpf Urine Mucus (None) /hpf Urine Opiates Screen (NotDetected) U Benzodiazepines Scrn (NotDetected) Crossmatch Microbiology - Last 24 Hours (Table) 08/10/22 21:30 Blood Culture - Preliminary Blood No Growth after 24 hours 08/11/22 17:35 Urine Culture - Preliminary Urine,Voided 08/11/22 12:20 Fungal Culture - Preliminary Bronchoalviolar Lavage - Right 08/11/22 12:20 Acid Fast Bacilli Culture - Preliminary Bronchoalviolar Lavage - Right 08/11/22 12:20 Bronchial Washings Culture - Preliminary Bronchoalviolar Lavage - Right 08/10/22 21:13 Blood Culture Gram Stain - Preliminary Blood Blood Culture - Preliminary Streptococcus pneumoniae 08/11/22 05:18 Gram Stain - Preliminary Sputum Sputum Culture - Preliminary 08/10/22 21:15 Blood Culture - Final Blood Diabetes panel 08/11/22 08/11/22 08/12/22 Range/Units 06:50 17:35 03:55 Sodium 136 L 133 L (137-145) mmol/L Potassium 4.4 4.0 (3.5-5.1) mmol/L Chloride 106 102 (98-107) mmol/L Carbon Dioxide 14 L 14 L (22-30) mmol/L BUN 47 H 51 H (7-17) mg/dL Creatinine 2.41 H 2.48 H (0.52-1.04) mg/dL Glucose 293 H 355 H (74-99) mg/dL Hemoglobin A1c 6.3 H (0.0-6.0) % Calcium 7.7 L 7.7 L (8.4-10.2) mg/dL Calcium panel 08/11/22 08/12/22 Range/Units 17:35 03:55 Calcium 7.7 L 7.7 L (8.4-10.2) mg/dL Pituitary panel 08/11/22 08/12/22 Range/Units 17:35 03:55 Sodium 136 L 133 L (137-145) mmol/L Potassium 4.4 4.0 (3.5-5.1) mmol/L Chloride 106 102 (98-107) mmol/L Carbon Dioxide 14 L 14 L (22-30) mmol/L BUN 47 H 51 H (7-17) mg/dL Creatinine 2.41 H 2.48 H (0.52-1.04) mg/dL Glucose 293 H 355 H (74-99) mg/dL Calcium 7.7 L 7.7 L (8.4-10.2) mg/dL Adrenal panel 08/11/22 08/12/22 Range/Units 17:35 03:55 Sodium 136 L 133 L (137-145) mmol/L Potassium 4.4 4.0 (3.5-5.1) mmol/L Chloride 106 102 (98-107) mmol/L Carbon Dioxide 14 L 14 L (22-30) mmol/L BUN 47 H 51 H (7-17) mg/dL Creatinine 2.41 H 2.48 H (0.52-1.04) mg/dL Glucose 293 H 355 H (74-99) mg/dL Calcium 7.7 L 7.7 L (8.4-10.2) mg/dL
--- NOTE | 2022-08-12 12:57 | P.PCN ---
Description of Procedure: Diagnoses is acute chronic injury Postprocedure same Procedure ultrasound-guided dialysis catheter placed right femoral approach jessica esteban was seen in the intensive care unit right groin were prepped and draped applied sterile manner. 1% lidocaine for an infected in the groin. Ultrasound- guided micropuncture introducer right femoral vein and micropuncture guidewire was passed. After that we passed a 4-Serbian dilator on the top of guidewire then we passed a regular guidewire and dilator was advanced on the top the guidewire then dialysis catheter was advanced on the top of guidewire flushed with heparin saline and secured with 3-0 nylon dressing applied patient are to the procedure well
[2022-08-12 17:50] LABS: Glucose,Whole Blood 332 mg/dL (70-110)
--- NOTE | 2022-08-12 21:21 | P.PN ---
Subjective This is a pleasant 67-soaked female with past medical history of alcohol liver disease and cirrhosis, coronary artery disease gastroesophageal reflux disease, chronic heart failure, fibromyalgia, hyperlipidemia, diabetes mellitus on insulin, pancytopenia, seizure history of TIPS and EGD with banded esophageal varices. paroxysmal atrial fibrillation not on anticoagulation secondary to liver disease on the waiting list for liver transplant on [facility] in [place] Presents with dyspnea and hypoxia Patient currently in intubated and could not provide information so it was obtained from the medical records and staff. No family at bedside. Patient was hypotensive blood pressure 93/78, currently her blood pressure improved slightly 102/44.. She is saturating 98%. She is tachypneic with a breathing rate around 28. Patient is afebrile. showing leukocytosis of 15.1, at baseline she has leukopenia with WBC 2-3. Hemoglobin 7.8.Platelet count 91 INR 1.6. PH 7.2, pCO2 of 34. PO2 of 195. Lactic acid is 4.6. Creatinine 2.1, baseline 1.5-1.7, chronic kidney disease stage III Magnesium 2.4 Bilirubin elevated at 2.8, AST slightly elevated at 42 while ALT is normal at 24. Ammonia is 53 ProBNP is elevated 03848. Serum alcohol Less than 10 Covid is not detected as well as influenza virus is Chest x-ray: There are multiple focal large ill-defined opacity throughout the entire of the right lung and involved the left suprahilar and left infra-hilar lung the pattern consistent with a clinical diagnosis of multifocal bronchopneumonia with associated right pleural effusion per the radiologist An emergency room patient received a pleasant somewhat, IV Solu-Medrol 1, morphine, Ativan and she got intubated. Also she received Rocephin 1. She was also receiving normal saline at 100 mL per hour with pulmonary team consulted Peterson catheter in place with dark yellow urine about 5 mL. 08/12/2022 Patient is still intubated and sedated in the ICU with pulmonary/critical care team followed closely. She has evidence of septic shock and 2 bilateral pneumonia and currently she is on levophed at 0.08 , with oliguric renal failure and plan for the patient to undergo hemodialysis however there is slight improvement in urine output compare d to yesterday. Lasix was stopped. Ultrasound showed no hydronephrosis but there is evidence of ascites. Also patient looks her problem cardiac as there is moderate to severe right ventricular dilatation with severe pulmonary hypertension and moderate mitral regurgitation and moderate to severe tricuspid regurgitation. Patient also with fluid overload with ascites and leg edema and chest x-ray showed CHF versus ARDS versus pneumonia. Levemir increased to 20 units with NovoLog 5 units every 6 hours with close monitoring of glucose. She has thrombocytopenia, anemia, mild coagulopathy. Creatinine 2.4. She is tachypneic and tachycardic and she was placed on amiodarone drip Objective - Vital Signs Vital signs: Vital Signs Temp 98.6 F 08/12/22 08:00 Pulse 147 H 08/12/22 11:00 Resp 23 08/12/22 11:00 BP 112/56 08/12/22 11:00 Pulse Ox 95 08/12/22 11:00 FiO2 70 08/12/22 12:03 Intake & Output 08/11/22 08/12/22 08/12/22 18:59 06:59 18:59 Intake Total 8045.988 0843.092 520.693 Output Total 35 130 63 Balance 1161.281 5248.092 457.693 Weight 86.4 kg Intake: IV 1309 1631.2 263.3 0.9 pressure bag 9 48 30 Amio bolus 100 Amiodarone 1mg dose 133.2 33.3 Rocephin 50 Sodium Bicarbonate 1200 1200 200 Zosyn 100 100 Intake, IV Titration 312.803 415.892 157.393 Amount Norepinephrine 4 mg In 218.901 254.000 70.338 Sodium Chloride 0.9% 250 ml @ 0.02 MCG/KG/MIN 6. 394 mls/hr IV .Q24H MACARIO Rx#:[id number] propofoL 1,000 mg In 93.902 161.892 87.055 Empty Bag 1 bag @ 15 MCG/ KG/MIN 7.552 mls/hr IV . [id number] MACARIO Rx#:[id number] Tube Feeding 60 70 Blood Product 310 Rc As-1 Unit 310 [id number] Other 30 30 Output: Urine 35 130 63 Other: Voiding Method Indwelling Catheter Indwelling Catheter Indwelling Catheter ABP, PAP, CO, CI - Last Documented Arterial Blood Pressure 117/56 - Exam -GENERAL: The patient is intubated and sedated HEENT: Pupils are round and equally reacting to light. EOMI. No scleral icterus. No conjunctival pallor. Normocephalic, atraumatic. No pharyngeal erythema. No thyromegaly. CARDIOVASCULAR: S1 and S2 present. No murmurs, rubs, or gallops. -PULMONARY: Chest is clear to auscultation, no bilateral crepitation -ABDOMEN: Soft, nontender, mild distention, normoactive bowel sounds. No palpable organomegaly. MUSCULOSKELETAL: No joint swelling or deformity. EXTREMITIES: No cyanosis, clubbing, or pedal edema. NEUROLOGICAL: Gross neurological examination did not reveal any focal deficits. SKIN: No rashes. no petechiae. - Labs CBC & Chem 7: 08/12/22 03:55 08/12/22 03:55 Labs: Abnormal Lab Results - Last 24 Hours (Table) 08/11/22 08/11/22 08/11/22 Range/Units 06:50 06:50 17:29 RBC (3.80-5.40) m/uL Hgb (11.4-16.0) gm/dL Hct (34.0-46.0) % MCHC (31.0-37.0) g/dL RDW (11.5-15.5) % Plt Count (150-450) k/uL Neutrophils # (Manual) (1.3-7.7) k/uL Lymphocytes # (Manual) (1.0-4.8) k/uL Nucleated RBCs (0-0) /100 WBC ABG pCO2 (35-45) mmHg ABG HCO3 (21-25) mmol/L ABG Total CO2 (19-24) mmol/L ABG O2 Saturation (94-97) % Sodium (137-145) mmol/L Carbon Dioxide (22-30) mmol/L BUN (7-17) mg/dL Creatinine (0.52-1.04) mg/dL Glucose (74-99) mg/dL POC Glucose (mg/dL) 303 H (70-110) mg/dL Hemoglobin A1c 6.3 H (0.0-6.0) % Calcium (8.4-10.2) mg/dL Urine Appearance (Clear) Urine Protein (Negative) Urine Glucose (UA) (Negative) Urine Blood (Negative) Ur Leukocyte Esterase (Negative) Urine RBC (0-5) /hpf Urine WBC (0-5) /hpf Urine WBC Clumps (None) /hpf Urine Bacteria (None) /hpf Hyaline Casts (0-2) /lpf Urine Mucus (None) /hpf Urine Opiates Screen (NotDetected) U Benzodiazepines Scrn (NotDetected) Crossmatch See Detail 08/11/22 08/11/22 08/11/22 Range/Units 17:35 17:35 17:35 RBC 2.75 L (3.80-5.40) m/uL Hgb 7.8 L D (11.4-16.0) gm/dL Hct 25.1 L (34.0-46.0) % MCHC (31.0-37.0) g/dL RDW 16.4 H (11.5-15.5) % Plt Count 34 L (150-450) k/uL Neutrophils # (Manual) (1.3-7.7) k/uL Lymphocytes # (Manual) (1.0-4.8) k/uL Nucleated RBCs (0-0) /100 WBC ABG pCO2 (35-45) mmHg ABG HCO3 (21-25) mmol/L ABG Total CO2 (19-24) mmol/L ABG O2 Saturation (94-97) % Sodium 136 L (137-145) mmol/L Carbon Dioxide 14 L (22-30) mmol/L BUN 47 H (7-17) mg/dL Creatinine 2.41 H (0.52-1.04) mg/dL Glucose 293 H (74-99) mg/dL POC Glucose (mg/dL) (70-110) mg/dL Hemoglobin A1c (0.0-6.0) % Calcium 7.7 L (8.4-10.2) mg/dL Urine Appearance (Clear) Urine Protein (Negative) Urine Glucose (UA) (Negative) Urine Blood (Negative) Ur Leukocyte Esterase (Negative) Urine RBC (0-5) /hpf Urine WBC (0-5) /hpf Urine WBC Clumps (None) /hpf Urine Bacteria (None) /hpf Hyaline Casts (0-2) /lpf Urine Mucus (None) /hpf Urine Opiates Screen Detected H (NotDetected) U Benzodiazepines Scrn Detected H (NotDetected) Crossmatch 08/11/22 08/11/22 08/12/22 Range/Units 17:35 23:56 03:55 RBC 3.09 L (3.80-5.40) m/uL Hgb 8.4 L (11.4-16.0) gm/dL Hct 28.2 L (34.0-46.0) % MCHC 29.8 L (31.0-37.0) g/dL RDW 16.6 H (11.5-15.5) % Plt Count 44 L (150-450) k/uL Neutrophils # (Manual) 7.80 H (1.3-7.7) k/uL Lymphocytes # (Manual) 0.17 L (1.0-4.8) k/uL Nucleated RBCs 1 H (0-0) /100 WBC ABG pCO2 (35-45) mmHg ABG HCO3 (21-25) mmol/L ABG Total CO2 (19-24) mmol/L ABG O2 Saturation (94-97) % Sodium (137-145) mmol/L Carbon Dioxide (22-30) mmol/L BUN (7-17) mg/dL Creatinine (0.52-1.04) mg/dL Glucose (74-99) mg/dL POC Glucose (mg/dL) 344 H (70-110) mg/dL Hemoglobin A1c (0.0-6.0) % Calcium (8.4-10.2) mg/dL Urine Appearance Cloudy H (Clear) Urine Protein 2+ H (Negative) Urine Glucose (UA) Trace H (Negative) Urine Blood Moderate H (Negative) Ur Leukocyte Esterase Moderate H (Negative) Urine RBC 127 H (0-5) /hpf Urine WBC 48 H (0-5) /hpf Urine WBC Clumps Rare H (None) /hpf Urine Bacteria Rare H (None) /hpf Hyaline Casts 8 H (0-2) /lpf Urine Mucus Occasional H (None) /hpf Urine Opiates Screen (NotDetected) U Benzodiazepines Scrn (NotDetected) Crossmatch 08/12/22 08/12/22 08/12/22 Range/Units 03:55 05:42 06:23 RBC (3.80-5.40) m/uL Hgb (11.4-16.0) gm/dL Hct (34.0-46.0) % MCHC (31.0-37.0) g/dL RDW (11.5-15.5) % Plt Count (150-450) k/uL Neutrophils # (Manual) (1.3-7.7) k/uL Lymphocytes # (Manual) (1.0-4.8) k/uL Nucleated RBCs (0-0) /100 WBC ABG pCO2 29 L (35-45) mmHg ABG HCO3 17 L (21-25) mmol/L ABG Total CO2 18 L (19-24) mmol/L ABG O2 Saturation 97.8 H (94-97) % Sodium 133 L (137-145) mmol/L Carbon Dioxide 14 L (22-30) mmol/L BUN 51 H (7-17) mg/dL Creatinine 2.48 H (0.52-1.04) mg/dL Glucose 355 H (74-99) mg/dL POC Glucose (mg/dL) 381 H (70-110) mg/dL Hemoglobin A1c (0.0-6.0) % Calcium 7.7 L (8.4-10.2) mg/dL Urine Appearance (Clear) Urine Protein (Negative) Urine Glucose (UA) (Negative) Urine Blood (Negative) Ur Leukocyte Esterase (Negative) Urine RBC (0-5) /hpf Urine WBC (0-5) /hpf Urine WBC Clumps (None) /hpf Urine Bacteria (None) /hpf Hyaline Casts (0-2) /lpf Urine Mucus (None) /hpf Urine Opiates Screen (NotDetected) U Benzodiazepines Scrn (NotDetected) Crossmatch 08/12/22 Range/Units 11:32 RBC (3.80-5.40) m/uL Hgb (11.4-16.0) gm/dL Hct (34.0-46.0) % MCHC (31.0-37.0) g/dL RDW (11.5-15.5) % Plt Count (150-450) k/uL Neutrophils # (Manual) (1.3-7.7) k/uL Lymphocytes # (Manual) (1.0-4.8) k/uL Nucleated RBCs (0-0) /100 WBC ABG pCO2 (35-45) mmHg ABG HCO3 (21-25) mmol/L ABG Total CO2 (19-24) mmol/L ABG O2 Saturation (94-97) % Sodium (137-145) mmol/L Carbon Dioxide (22-30) mmol/L BUN (7-17) mg/dL Creatinine (0.52-1.04) mg/dL Glucose (74-99) mg/dL POC Glucose (mg/dL) 392 H (70-110) mg/dL Hemoglobin A1c (0.0-6.0) % Calcium (8.4-10.2) mg/dL Urine Appearance (Clear) Urine Protein (Negative) Urine Glucose (UA) (Negative) Urine Blood (Negative) Ur Leukocyte Esterase (Negative) Urine RBC (0-5) /hpf Urine WBC (0-5) /hpf Urine WBC Clumps (None) /hpf Urine Bacteria (None) /hpf Hyaline Casts (0-2) /lpf Urine Mucus (None) /hpf Urine Opiates Screen (NotDetected) U Benzodiazepines Scrn (NotDetected) Crossmatch Microbiology - Last 24 Hours (Table) 08/10/22 21:30 Blood Culture - Preliminary Blood No Growth after 24 hours 08/11/22 17:35 Urine Culture - Preliminary Urine,Voided 08/11/22 12:20 Fungal Culture - Preliminary Bronchoalviolar Lavage - Right 08/11/22 12:20 Acid Fast Bacilli Culture - Preliminary Bronchoalviolar Lavage - Right 08/11/22 12:20 Bronchial Washings Culture - Preliminary Bronchoalviolar Lavage - Right 08/10/22 21:13 Blood Culture Gram Stain - Preliminary Blood Blood Culture - Preliminary Streptococcus pneumoniae 08/11/22 05:18 Gram Stain - Preliminary Sputum Sputum Culture - Preliminary 08/10/22 21:15 Blood Culture - Final Blood Assessment and Plan Assessment: Acute Bilateral broncho-pneumonia Acute CHF exacerbation, with ejection fraction 55-60% Possible septic shock Acute hypoxic respiratory failure, required intubation and mechanical ventilation Acute kidney injury, with low urine output Metabolic acidosis Elevated lactic acid Metabolic and hepatic encephalopathy possible ARDS versus CHF [id number] mitral regurgitation and moderate to severe tricuspid regurgitation with severely dilated right ventricle and severe pulmonary hypertension Elevated bilirubin Diabetes mellitus on insulin, nonalcoholic liver disease and liver cirrhosis History of ascites status post paracentesis Chronic heart failure History of fibromyalgia Hyperlipidemia and history of pancytopenia History of seizure history of EGD with banded esophageal varices History of chronic atrial fibrillation not on anticoagulation because of her liver disease [id number] mitral regurgitation Plan: This is a pleasant 58 minus old female presents with hypoxia Continue with bronchodilator Pulmonary consult Continue with antibiotic ceftriaxone and IV vancomycin follow-up culture results Continue with rifaximin and lactulose There is no GI coverage in this facility Continue with amiodarone drip Continue with Levemir 20 units daily and NovoLog 5 units every 6 hours She is on sodium bicarb 100 mL per hour per pulmonary and nephrology's recommendation Follow up creatinine, check urinalysis. Patient has low urine output. We will monitor urine output and consider nephrology consult. Labs and medication were reviewed.. Continue same treatment. Continue with symptomatic treatment. Resume home medication. Monitor lytes and vitals. DVT and GI prophylaxis. Further recommendations as per clinical course of the patient DVT prophylaxis: Subcutaneous heparin GI Prophylaxis: Pepcid PT/OT: Pending Prognosis is guarded
[2022-08-12] MEDS ORDERED: INSULIN DETEMIR (LEVEMIR) 100 UNIT/ML SYR SQ ONE (21:30)
[2022-08-12 22:03] LABS: Glucose,Whole Blood 361 mg/dL (70-110)
[2022-08-13] MEDS: INSULIN ASPART (NovoLOG) 100 UNIT/ML VIAL SQ SCH ×9 (00:54→23:13)
[2022-08-13 00:59] LABS: Glucose,Whole Blood 391 mg/dL (70-110)
[2022-08-13] MEDS: AMIODARONE 450 MG in DEXTROSE 5% IN WATER 250 ML IV SCH ×2 (02:14)
[2022-08-13] MEDS: NOREPINEPHRINE 4 MG in SODIUM CHLORIDE 0.9% 250 ML IV SCH ×2 (03:31→20:42)
[2022-08-13 04:29] LABS: Calcium 7.6 mg/dL (8.4-10.2); Potassium 3.4 mmol/L (3.5-5.1)
[2022-08-13 04:34] LABS: Vancomycin,Random 22.1 ug/mL
[2022-08-13 05:32] LABS: ABG HCO3 23 mmol/L (21-25); ABG PCO2 35 mmHg (35-45); ABG PH 7.41 (7.35-7.45); ABG PO2 317 mmHg (83-108); ABG TCO2 24 mmol/L (19-24); Allen Test Performed? Yes
[2022-08-13 05:41] LABS: Glucose,Whole Blood 437 mg/dL (70-110)
[2022-08-13 06:36] LABS: Anisocytosis Slight; Basophils % (A) 0 %; Eosinophils % (A) 1 %; HCT 25.3 % (34.0-46.0); HGB 8.1 gm/dL (11.4-16.0); Hypochromasia Marked; Lymphocytes # (A) 0.2 k/uL (1.0-4.8); Lymphocytes % (A) 3 %; MCH 29.2 pg (25.0-35.0); MCHC 32.1 g/dL (31.0-37.0); Mean Platelet Volume 13.3; Monocytes # (A) 0.2 k/uL (0-1.0); Monocytes % (A) 3 %; Neutrophils # (A) 5.7 k/uL (1.3-7.7); Neutrophils % (A) 93 %; Poikilocytosis Moderate; RBC 2.78 m/uL (3.80-5.40); RDW 16.6 % (11.5-15.5); WBC 6.1 k/uL (3.8-10.6)
[2022-08-13 06:41] LABS: Platelet Count 23 k/uL (150-450)
[2022-08-13] MEDS ORDERED: INSULIN DETEMIR (LEVEMIR) 100 UNIT/ML SYR SQ SCH ×3 (07:00→21:00)
--- NOTE | 2022-08-13 07:17 | XR ---
EXAMINATION TYPE: XR chest 1V portable DATE OF EXAM: 08/13/2022 COMPARISON: Chest x-ray 08/12/2022 HISTORY: Intubated TECHNIQUE: Single frontal view of the chest is obtained. FINDINGS: Endotracheal tube, NG tube, left subclavian central venous catheter are overlying appropri ate positions. Patient is rotated. Pleural parenchymal changes show similar appearance, there may be some slight interval improvement in aeration. Proximal right humeral fracture again noted. No evident pneumothorax. There are overlying artifacts. Blunting of the costophrenic angle on the left is noted , the right hemidiaphragm is partially obscured. IMPRESSION: There may be some slight interval improvement in aeration although there are differences in technique.
[2022-08-13] MEDS: IPRATROPIUM-ALBUTEROL 3 ML NEB INHALATION PRN ×4 (07:38→20:10)
[2022-08-13] MEDS: LACTULOSE 20 GM/30 ML CUP PO SCH (08:37)
[2022-08-13] MEDS: DEXTROSE 5% IN WATER 1,000 ML with SODIUM BICARB (1 MEQ/ML) 100 ML IV SCH ×2 (08:37→18:12)
[2022-08-13] MEDS: PANTOPRAZOLE 40 MG/10 ML VIAL IV SCH (08:37)
[2022-08-13] MEDS: CHLORHEXIDINE GLUCONATE 15 ML CUP MUCOUS MEM SCH ×2 (08:38→20:19)
[2022-08-13] MEDS: RIFAXIMIN 550 MG TABLET PO SCH ×2 (08:38→20:19)
[2022-08-13 09:19] LABS: ABG Base Excess -1.4 mmol/L; ABG HCO3 23 mmol/L (21-25); ABG PCO2 37 mmHg (35-45); ABG PH 7.41 (7.35-7.45); ABG PO2 144 mmHg (83-108); ABG TCO2 25 mmol/L (19-24)
--- NOTE | 2022-08-13 09:23 | P.PN ---
Subjective Progress Note Date: 08/13/22 This is a 67-year-old female patient with known history of nonalcoholic liver failure/cirrhosis. The patient has liver cirrhosis due to fatty liver/drug induced cirrhosis. The patient has been seen by the GI service at the [facility]. She underwent a TIPS procedures as the patient was requiring multiple episodes of paracentesis over the years. The patient has had previous episodes of massive GI bleed and this was secondary to portal hypertension and esophageal varices. Taking care of this patient in the past and the intensive care unit. My last encounter with her was in June 2021 and backbench I treated with shortness of breath and she had large bilateral pleural effusion and atelectasis and she was hypoxic and she was managed accordingly. The patient also has a long list of comorbid conditions Primus related to her liver cirrhosis. She is diabetic and she has known history of coronary artery disease. The patient came in yesterday to the emergency department with acute respiratory distress. This started a few days prior to her admission. She was confused and not a whole lot of history was obtained from her in the emergency. She was reporting no fever or chills. No aspiration. The patient was in significant distress. They tried on BiPAP initially and she failed and subsequently she got intubated and placed on a mechanical ventilator. Post intubation chest x-ray showed extensive bilateral lung consolidations more so on the right. A repeat chest x-ray was on this morning and it is humid and G-tube are again seen and the patient has extensive bilateral airspace disease seen. This morning, the patient is sedated with propofol running at 20 mcg/kg/m. She is on assist control of 28 with a tidal volume of 450 and FiO2 of 90% with a PEEP of 5. Her blood work from this morning shows a white cell count of 6.7 which dropped from 15.1. Hemoglobin is down to 6.2 from a baseline of 7.8 and a platelet count was 91,000 yesterday. Her INR today is 1.7 with a PT of 17.8. The patient also has a component of and I get metabolic acidosis with a gap of 16 at the time of admission, current serum bicarbs of 14 with a gap of 12 and sodium level of 136. Potassium level is at 4.7. Her lactic acid initially was 4.6-1.9. Her Calcium Is at 7.7. Bilirubin Is at 1. LFTs Are Normal. Serum Albumin Is at 2.7. Covid 19 Testing Was Negative. Influenza Screen Was Negative. Alcohol Level Was Negative. Most Recent Blood Gas Shows a pH of 7.34 with a PCO2 of 25 and PO2 of 87. She Was Borderline Hypotensive. She Was Given 2 Doses of Albumin Yesterday 25%. She Was Also Given a Bolus of Saline in the Emergency Department. The Bolus of Saline was in order of 500 mL. Currently she is on a bicarbonate infusion running at a rate of 100 mL an hour. Urine output is extremely low and order a fasting cc on an hourly basis. Antibiotic coverage was also provided and the patient was started on IV Zosyn. She is on pressors and this was started yesterday and norepinephrine is O- 0.06 mcg/kg/m. 08/12/2022, the patient remains in septic shock with evidence of multisystem organ failure. As mentioned earlier, this 67-year-old female patient has liver cirrhosis and chronic kidney disease. The patient has bilateral extensive pneumonia with respiratory failure, hypotension, shock and sepsis. She presented to unresponsive and she went into respiratory failure requiring intubation and mechanical ventilation. The blood cultures came back positive for Streptococcus pneumonia and the patient is currently on a combination of IV Rocephin and vancomycin. Cultures yielded yesterday. Note that the patient was hypotensive. The patient has a questionable with resuscitation. The patient initially was given IV fluids. Nevertheless, she has extensive third spacing and signs of fluid overload/in all 4 extremities and mainly in the legs. She was given IV albumin yesterday. Subsequently, she was placed on a bicarbonate infusion which is running at the rate of 100 and hour. Urine output is minimal in order of 5 mL. Lasix has been tried by nephrology without any success. On today's blood work, the creatinine is on the rise at 2.48 with a BMI 51. Sodium is 133. The patient remains hypotensive and she is pressors dependent and she is requiring norepinephrine at a dose of 0.08 microvascular kilogram per minutes. She has a triple-lumen cath in the subclavian vein. The CVP is currently at 22. The chest x-ray showing dense bilateral pulmonary infiltrates. The patient remains off alcohol which is running at 26 mcg/kg/m. She is on a mechanical ventilator and she is on assist control mode at a rate of 28 with a tidal volume of 450 and FiO2 of 70% and a PEEP of 5. The pH is 7.38 with pCO2 of 29 and pO2 of 87. The white suppositive 0.4 with a hemoglobin of 8.4. Blood sugars at 381. Sodium is 133. She recently units of packed RBC yesterday for low hemoglobin. No signs of any GI bleeding. Orogastric tube is in place. At the feeding was started yesterday and patient is currently on vitamin HP at that eighth of 10 mL an hour. No other issues for now. She does have extensive edema and third spacing. On a separate note, the patient went into atrial fibrillation with rapid response. Overnight. The patient was loaded with amiodarone and currently she is continuing her loading and she is on a maintenance of 1 mg/m. Echocardiogram was done yesterday and the patient was found to have a preserved LV function with an ejection fraction of 55-60%. There was evidence of moderate to severe dilatation of the right ventricle and right ventricular systolic pressure of 71 and she also did demonstrate mild aortic stenosis and moderate to severe tricuspid regurgitation. 08/13/2022, the patient is being seen for a follow-up. She is in septic shock secondary to pneumococcal pneumonia and multisystem organ failure. The patient this morning remains sedated and she is currently on propofol running at 20 mcg/kg/m. She was she is well rested and she is synchronous with the mechanical ventilator. She was doing well on the mechanical ventilator. However earlier this morning, she had an episode of desaturation. Repeat chest x-rays were done and the findings were essentially consistent with bilateral pneumonia. No e vidence of any pneumothorax. No evidence of any interval worsening. Based on that, the patient was placed on a PEEP of 16 to improve her oxygenation and FiO2 was kept at 70% and she is currently at the rate of 28 with a tidal volume of 375. Those changes were done as the patient was desaturating and I had to lower the tidal volume and increase the PEEP. Ultimately, this turned out to be probably a mucous plug. After repeated suctioning, she improved. Oxygenation also improved and the pO2 is up to when necessary 17. Repeat blood gas these to be done to reevaluate her oxygenation. The pH is 7.41 with a pCO2 of 35. I dropped the PEEP by 2 and currently she is on a PEEP of 14. Peak airway pressures around 36. The patient otherwise is still septic and hypotensive. In terms of IV fluids, she is receiving bicarb infusion at that eighth of 100 mL an hour. She underwent hemodialysis yesterday as the patient was having significant amount of fluid overload. Dialysis catheter was inserted yesterday and he right groin. First session of hemodialysis established with a total of 1000 mL of ultrafiltration. She did convert into normal sinus rhythm and she is out of atrial fibrillation for now. However, she is still requiring pressors and norepinephrine is running at a rate of 0.04 mcg/kg/m. I'm going to switch this patient to oral amiodarone. That echocardiogram showed a preserved LV function. In terms of labs, the white cycles of 6.1 with a hemoglobin of 8.1 and a platelet count that dropped down to 23. The patient was a sodium of 133, potassium of 3.4, bicarb of 20, BUN of 43 with a creatinine of 1.89. Stool for C. diff has been negative. The patient remains on a combination of Rocephin and vancomycin. The vancomycin random level was 22. The patient does she is also on NovoLog units 4 times a day and the sliding scale coverage. We will need to monitor the blood sugar control and use a drip if needed. CVP is currently at 15. not have STEPHON is on the vancomycin yet. Enteral feeding is accomplished by vital HP at the rate of 39 mL an hour. He is able to tolerate the enteral feeding without having any major difficulties. She is on Levemir insulin and t his was started today as the patient's blood sugar was considerably elevated. CVP at 15 Objective - Vital Signs Vital signs: Vital Signs Temp 97.5 F L 08/13/22 08:00 Pulse 70 08/13/22 08:04 Resp 28 H 08/13/22 08:00 BP 113/56 08/13/22 08:00 Pulse Ox 100 08/13/22 08:00 FiO2 70 08/13/22 08:00 Intake & Output 08/12/22 08/13/22 08/13/22 18:59 06:59 18:59 Intake Total 2201.839 2546.952 421.225 Output Total 1213 165 50 Balance 710.372 0292.952 371.225 Weight 93 kg Intake: IV 1005.3 1504.6 245.2 0.9 pressure bag 72 72 12 Amiodarone 0.5mg dose 182.6 33.2 Amiodarone 1mg dose 33.3 Rocephin 50 Sodium Bicarbonate 900 1200 200 Intake, IV Titration 576.539 538.352 107.025 Amount Amiodarone 450 mg In 250 Dextrose 5% in Water 250 ml @ 0.5 MG/MIN 16.667 mls/hr IV .Q15H MACARIO Rx#: [id number] Norepinephrine 4 mg In 429.098 114.711 10.924 Sodium Chloride 0.9% 250 ml @ 0.02 MCG/KG/MIN 6. 394 mls/hr IV .Q24H [facility]ARIO Rx#:[id number] propofoL 1,000 mg In 147.441 173.641 96.101 Empty Bag 1 bag @ 15 MCG/ KG/MIN 7.552 mls/hr IV . [id number] MACARIO Rx#:[id number] Tube Feeding 230 414 39 Hemodialysis 300 Other 90 90 30 Output: Urine 213 165 50 Hemodialysis 1000 Other: Voiding Method Indwelling Catheter Indwelling Catheter Indwelling Catheter ABP, PAP, CO, CI - Last Documented Arterial Blood Pressure 131/39 - Exam Gen. appearance the patient currently intubated on a mechanical ventilator. Corrine ford has an orogastric tube in place. There is also an NG tube in place. No evidence of any bleed from the NG tube. she is calm and comfortable and symptom is a mechanical ventilator. Head exam was generally normal. There was no scleral icterus or corneal arcus. Mucous membranes were moist. Neck was supple and without jugular venous distension, thyromegaly, or carotid bruits. Carotids were easily palpable bilaterally. There was no adenopathy. Lungs sounds are diminished in lung bases , otherwise breasts: Equal and symmetrical. scattered rhonchi. Scattered crackles in the mid and lower lung fi elds. Heart sounds are regular and there is accentuation of the second heart sound, probably related to underlying pulmonary hypertension. Faint murmur systolic ejection murmur grade 2/6 is also appreciated. Abdomen is distended and the patient has underlying ascites. His fluid wave and shifting dullness. There is also some splenomegaly. No direct tenderness. No rebound tensile guarding. Patient has a small umbilical hernia. Extremities reviewed extensive amount of edema in all 4 extremities pressure in the legs. the patient has significant third spacing and edema at this point in time. Neurologically, the patient is sedated on propofol. she was also painful semination all 4 extremities. No facial asymmetry. positive cough. Positive gag. Pupils are equal reactive to light. motor functions [place] objectively assess. Sensory functions cannot be accurately assessed. Examination of the skin revealed no evidence of significant rashes, suspicious appearing nevi or other concerning lesions. - Labs CBC & Chem 7: 08/13/22 04:04 08/13/22 04:04 Labs: Abnormal Lab Results - Last 24 Hours (Table) 08/11/22 08/12/22 08/12/22 Range/Units 06:50 11:32 17:49 RBC (3.80-5.40) m/uL Hgb (11.4-16.0) gm/dL Hct (34.0-46.0) % RDW (11.5-15.5) % Plt Count (150-450) k/uL Lymphocytes # (1.0-4.8) k/uL ABG pO2 (83-108) mmHg ABG O2 Saturation (94-97) % Sodium (137-145) mmol/L Potassium (3.5-5.1) mmol/L Carbon Dioxide (22-30) mmol/L BUN (7-17) mg/dL Creatinine (0.52-1.04) mg/dL Glucose (74-99) mg/dL POC Glucose (mg/dL) 392 H 332 H (70-110) mg/dL Calcium (8.4-10.2) mg/dL Crossmatch See Detail 08/12/22 08/13/22 08/13/22 Range/Units 22:00 00:50 04:04 RBC (3.80-5.40) m/uL Hgb (11.4-16.0) gm/dL Hct (34.0-46.0) % RDW (11.5-15.5) % Plt Count (150-450) k/uL Lymphocytes # (1.0-4.8) k/uL ABG pO2 (83-108) mmHg ABG O2 Saturation (94-97) % Sodium 133 L (137-145) mmol/L Potassium 3.4 L (3.5-5.1) mmol/L Carbon Dioxide 20 L (22-30) mmol/L BUN 43 H (7-17) mg/dL Creatinine 1.89 H (0.52-1.04) mg/dL Glucose 389 H (74-99) mg/dL POC Glucose (mg/dL) 361 H 391 H (70-110) mg/dL Calcium 7.6 L (8.4-10.2) mg/dL Crossmatch 08/13/22 08/13/22 08/13/22 Range/Units 04:04 05:30 05:32 RBC 2.78 L (3.80-5.40) m/uL Hgb 8.1 L (11.4-16.0) gm/dL Hct 25.3 L (34.0-46.0) % RDW 16.6 H (11.5-15.5) % Plt Count 23 L (150-450) k/uL Lymphocytes # 0.2 L (1.0-4.8) k/uL ABG pO2 317 H (83-108) mmHg ABG O2 Saturation 100.0 H (94-97) % Sodium (137-145) mmol/L Potassium (3.5-5.1) mmol/L Carbon Dioxide (22-30) mmol/L BUN (7-17) mg/dL Creatinine (0.52-1.04) mg/dL Glucose (74-99) mg/dL POC Glucose (mg/dL) 437 H (70-110) mg/dL Calcium (8.4-10.2) mg/dL Crossmatch Microbiology - Last 24 Hours (Table) 08/11/22 12:20 Gram Stain - Final Bronchoalviolar Lavage - Right Bronchial Washings Culture - Final 08/11/22 05:18 Gram Stain - Final Sputum Sputum Culture - Final 08/11/22 12:20 Acid Fast Bacilli Smear - Final Bronchoalviolar Lavage - Right Acid Fast Bacilli Culture - Preliminary 08/10/22 21:30 Blood Culture - Preliminary Blood No Growth after 48 hours 08/11/22 17:35 Urine Culture - Final Urine,Voided 08/10/22 21:13 Blood Culture Gram Stain - Preliminary Blood Blood Culture - Preliminary Streptococcus pneumoniae Assessment and Plan Plan: acute hypoxic respiratory failure with extensive bilateral pulmonary infiltrates/pneumonia. rule out community-acquired pneumonia versus aspiration pneumonia. the patient has dense consolidations bilaterally right more than left. Currently she is intubated on a mechanical ventilator. The patient continues to have dense bilateral pulmonary infiltrates consistent with pneumococcal pneumonia and the patient remains intubated on a mechanical ventilator. Chest x-ray and blood gases were noted. The patient had a episode of a mucous plug this morning. Appropriate ventilator changes were done and they blood gas will be repeated and the necessary changes will be done accordingly. Acute septic shock secondary to strep pneumonia. The patient continues to be pressor dependent. Hypotension/shock secondary to above , on norepinephrine acute kidney injury , and the patient is oliguric at this point in time. Note that the patient did have some chronic kidney insufficiency at baseline. There is a component of an acute on top of chronic kidney failure. She does have a baseline stage III chronic kidney disease. She has a Peterson catheter in place. The patient had an ultrasound the kidneys that showed no evidence of any hydronephrosis. The patient has an acute kidney injury on top of chronic kidney disease probably related to hypotension and sepsis. Hepatorenal syndrome cannot be completely excluded. She does have mild to moderate ascites, no evidence of any abdominal compartmental syndrome. The patient currently has a hemodialysis catheter. The patient received her first session of hemodialysis yesterday. Acute metabolic acidosis with lactic acidosis, improving, continues to be on bicarb infusion, serum bicarbonate is improving and currently is up to 20 acute on top of chronic anemia with a hemoglobin drop down to 6.2, no indication for an acute GI bleed at this point in time , subsequent hemoglobin from today is improved and is up to 8.1 Altered mental status secondary to above. there may be also a component of metabolic encephalopathy/ hepatic encephalopathy and the patient's serum ammonia level was 53. The patient remains on rifaximin mean and lactulose and she is having soft bowel movements liver cirrhosis/ascites previous history of TIPS regarding liver cirrhosis and recurrent ascites history of pancytopenia secondary to liver failure/hypersplenism portal hypertension. History of GI bleed, inactive in stable for now questionable lung nodues for which a PET scan was ordered for this patient and the patient was deactivated from the transplantation list. we do not have any update on her candidacy for liver transplant at this point in time. My informa tion from last year was that the patient was deactivated. history of psoriatic arthritis history of diabetes mellitus currently on insulin pump. Blood sugar seems to be under poor control monitor the blood sugar from today is quite elevated. Fibromyalgia coronary artery disease without previous history of any underlying cardiomyopathy with CHF. hyperbilirubinemia secondary to liver cirrhosis Severe pulmonary hypertension, consider possibility of hepatopulmonary syndrome. She has preserved LV function. Mild aortic stenosis New-onset A. fib fibrillation with rapid ventricular response. The patient converted into normal sinus rhythm Plan continue ventilator support, keep the PEEP at 14 and obtain a follow-up blood gas. Keep tidal volume of 375, rate that 28. Continue same antibiotic coverage The patient is sedated with propofol, and sedation will be continued Continue the bicarbonate infusion and currently is running at the rate of 100 mL an hour Discontinue Lasix, no improvement in urine output Proceed with hemodialysis and ultrafiltration per nephrology Switch this patient to oral amiodarone 200 mg twice a day and the cardiac rhythm is sinus Gradually wean off the norepinephrine infusion ultrasound abdomen ruled out hydronephrosis, nevertheless, there is a mild to moderate ascites without evidence of any abdominal compartmental syndrome. May consider paracentesis if there is any further increase of ascites. pro calcitonin level is quite , levels will be monitored Check blood cultures is positive for strep pneumonia Continue IV Rocephin and vancomycin pending further STEPHON on the strep pneumo Hemoglobin is stable for now enteral feeding for nutritional support and diet will be consulted With the patient on lactulose 20 mL once a day establish a regular bowel movement activity Continue rifaximin mean 550 mg by mouth twice a day Increase Levemir up to 34 units and increase the NovoLog 10 units 4 times a day plus a sliding scale coverage Obtain further information from family regarding her candidacy for transplantation at her current status Re: Transplant at the [facility] With the patient on insulin sliding scale coverage Lactic acid levels improved LFTs are normal Check a baseline cortisol levelWas done and the levels were adequate Repeat all labs by tomorrow We'll continue to follow. Condition is obviously critical. We'll make further recommendations based on her progress. High mortality risk. Will continue to follow. His ventilation within a more than 30 minutes. Time with Patient: Greater than 30
--- NOTE | 2022-08-13 10:19 | P.PN ---
Subjective This is a pleasant 67-soaked female with past medical history of alcohol liver disease and cirrhosis, coronary artery disease gastroesophageal reflux disease, chronic heart failure, fibromyalgia, hyperlipidemia, diabetes mellitus on insulin, pancytopenia, seizure history of TIPS and EGD with banded esophageal varices. paroxysmal atrial fibrillation not on anticoagulation secondary to liver disease on the waiting list for liver transplant on [facility] in [place] Presents with dyspnea and hypoxia Patient currently in intubated and could not provide information so it was obtained from the medical records and staff. No family at bedside. Patient was hypotensive blood pressure 93/78, currently her blood pressure improved slightly 102/44.. She is saturating 98%. She is tachypneic with a breathing rate around 28. Patient is afebrile. showing leukocytosis of 15.1, at baseline she has leukopenia with WBC 2-3. Hemoglobin 7.8.Platelet count 91 INR 1.6. PH 7.2, pCO2 of 34. PO2 of 195. Lactic acid is 4.6. Creatinine 2.1, baseline 1.5-1.7, chronic kidney disease stage III Magnesium 2.4 Bilirubin elevated at 2.8, AST slightly elevated at 42 while ALT is normal at 24. Ammonia is 53 [place] 74[address]. Serum alcohol Less than 10 Covid is not detected as well as influenza virus is Chest x-ray: There are multiple focal large ill-defined opacity throughout the entire of the right lung and involved the left suprahilar and left infra-hilar lung the pattern consistent with a clinical diagnosis of multifocal bronchopneumonia with associated right pleural effusion per the radiologist An emergency room patient received a pleasant somewhat, IV Solu-Medrol 1, morphine, Ativan and she got intubated. Also she received Rocephin 1. She was also receiving normal saline at 100 mL per hour with pulmonary team consulted Peterson catheter in place with dark yellow urine about 5 mL. 08/12/2022 Patient is still intubated and sedated in the ICU with pulmonary/critical care team followed closely. She has evidence of septic shock and 2 bilateral pneumonia and currently she is on levophed at 0.08 , with oliguric renal failure and plan for the patient to undergo hemodialysis however there is slight improvement in urine output compare d to yesterday. Lasix was stopped. Ultrasound showed no hydronephrosis but there is evidence of ascites. Also patient looks her problem cardiac as there is moderate to severe right ventricular dilatation with severe pulmonary hypertension and moderate mitral regurgitation and moderate to severe tricuspid regurgitation. Patient also with fluid overload with ascites and leg edema and chest x-ray showed CHF versus ARDS versus pneumonia. Levemir increased to 20 units with NovoLog 5 units every 6 hours with close monitoring of glucose. She has thrombocytopenia, anemia, mild coagulopathy. Creatinine 2.4. She is tachypneic and tachycardic and she was placed on amiodarone drip Objective - Vital Signs Vital signs: Vital Signs Temp 97.5 F L 08/13/22 08:00 Pulse 71 08/13/22 09:00 Resp 28 H 08/13/22 09:00 BP 110/51 08/13/22 09:00 Pulse Ox 100 08/13/22 09:00 FiO2 50 08/13/22 09:00 Intake & Output 08/12/22 08/13/22 08/13/22 18:59 06:59 18:59 Intake Total 2201.839 2546.952 543.825 Output Total 1213 165 75 Balance 412.576 2662.952 468.825 Weight 93 kg Intake: IV 1005.3 1504.6 367.8 0.9 pressure bag 72 72 18 Amiodarone 0.5mg dose 182.6 49.8 Amiodarone 1mg dose 33.3 Rocephin 50 Sodium Bicarbonate 900 1200 300 Intake, IV Titration 576.539 538.352 107.025 Amount Amiodarone 450 mg In 250 Dextrose 5% in Water 250 ml @ 0.5 MG/MIN 16.667 mls/hr IV .Q15H [facility] Rx#: [id number] Norepinephrine 4 mg In 429.098 114.711 10.924 Sodium Chloride 0.9% 250 ml @ 0.02 MCG/KG/MIN 6. 394 mls/hr IV .Q24H [facility] Rx#:[id number] propofoL 1,000 mg In 147.441 173.641 96.101 Empty Bag 1 bag @ 15 MCG/ KG/MIN 7.552 mls/hr IV . [id number] [facility] Rx#:[id number] Tube Feeding 230 414 39 Hemodialysis 300 Other 90 90 30 Output: Urine 213 165 75 Hemodialysis 1000 Other: Voiding Method Indwelling Catheter Indwelling Catheter Indwelling Catheter ABP, PAP, CO, CI - Last Documented Arterial Blood Pressure 119/36 - Exam -GENERAL: The patient is intubated and sedated HEENT: Pupils are round and equally reacting to light. EOMI. No scleral icterus. No conjunctival pallor. Normocephalic, atraumatic. No pharyngeal erythema. No thyromegaly. CARDIOVASCULAR: S1 and S2 present. No murmurs, rubs, or gallops. -PULMONARY: Chest is clear to auscultation, no bilateral crepitation -ABDOMEN: Soft, nontender, mild distention, normoactive bowel sounds. No palpable organomegaly. MUSCULOSKELETAL: No joint swelling or deformity. EXTREMITIES: No cyanosis, clubbing, or pedal edema. NEUROLOGICAL: Gross neurological examination did not reveal any focal deficits. SKIN: No rashes. no petechiae. - Labs CBC & Chem 7: 08/13/22 04:04 08/13/22 04:04 Labs: Abnormal Lab Results - Last 24 Hours (Table) 08/11/22 08/12/22 08/12/22 Range/Units 06:50 11:32 17:49 RBC (3.80-5.40) m/uL Hgb (11.4-16.0) gm/dL Hct (34.0-46.0) % RDW (11.5-15.5) % Plt Count (150-450) k/uL Lymphocytes # (1.0-4.8) k/uL ABG pO2 (83-108) mmHg ABG O2 Saturation (94-97) % Sodium (137-145) mmol/L Potassium (3.5-5.1) mmol/L Carbon Dioxide (22-30) mmol/L BUN (7-17) mg/dL Creatinine (0.52-1.04) mg/dL Glucose (74-99) mg/dL POC Glucose (mg/dL) 392 H 332 H (70-110) mg/dL Calcium (8.4-10.2) mg/dL Crossmatch See Detail 08/12/22 08/13/22 08/13/22 Range/Units 22:00 00:50 04:04 RBC (3.80-5.40) m/uL Hgb (11.4-16.0) gm/dL Hct (34.0-46.0) % RDW (11.5-15.5) % Plt Count (150-450) k/uL Lymphocytes # (1.0-4.8) k/uL ABG pO2 (83-108) mmHg ABG O2 Saturation (94-97) % Sodium 133 L (137-145) mmol/L Potassium 3.4 L (3.5-5.1) mmol/L Carbon Dioxide 20 L (22-30) mmol/L BUN 43 H (7-17) mg/dL Creatinine 1.89 H (0.52-1.04) mg/dL Glucose 389 H (74-99) mg/dL POC Glucose (mg/dL) 361 H 391 H (70-110) mg/dL Calcium 7.6 L (8.4-10.2) mg/dL Crossmatch 08/13/22 08/13/22 08/13/22 Range/Units 04:04 05:30 05:32 RBC 2.78 L (3.80-5.40) m/uL Hgb 8.1 L (11.4-16.0) gm/dL Hct 25.3 L (34.0-46.0) % RDW 16.6 H (11.5-15.5) % Plt Count 23 L (150-450) k/uL Lymphocytes # 0.2 L (1.0-4.8) k/uL ABG pO2 317 H (83-108) mmHg ABG O2 Saturation 100.0 H (94-97) % Sodium (137-145) mmol/L Potassium (3.5-5.1) mmol/L Carbon Dioxide (22-30) mmol/L BUN (7-17) mg/dL Creatinine (0.52-1.04) mg/dL Glucose (74-99) mg/dL POC Glucose (mg/dL) 437 H (70-110) mg/dL Calcium (8.4-10.2) mg/dL Crossmatch Microbiology - Last 24 Hours (Table) 08/11/22 12:20 Gram Stain - Final Bronchoalviolar Lavage - Right Bronchial Washings Culture - Final 08/11/22 05:18 Gram Stain - Final Sputum Sputum Culture - Final 08/11/22 12:20 Acid Fast Bacilli Smear - Final Bronchoalviolar Lavage - Right Acid Fast Bacilli Culture - Preliminary 08/10/22 21:30 Blood Culture - Preliminary Blood No Growth after 48 hours 08/11/22 17:35 Urine Culture - Final Urine,Voided 08/10/22 21:13 Blood Culture Gram Stain - Preliminary Blood Blood Culture - Preliminary Streptococcus pneumoniae Assessment and Plan Assessment: Acute Bilateral broncho-pneumonia Acute CHF exacerbation, with ejection fraction 55-60% Possible septic shock Acute hypoxic respiratory failure, required intubation and mechanical ventilation Acute kidney injury, with low urine output Metabolic acidosis Elevated lactic acid Metabolic and hepatic encephalopathy possible ARDS versus CHF [id number] mitral regurgitation and moderate to severe tricuspid regurgitation with severely dilated right ventricle and severe pulmonary hypertension Elevated bilirubin Diabetes mellitus on insulin, nonalcoholic liver disease and liver cirrhosis History of ascites status post paracentesis Chronic heart failure History of fibromyalgia Hyperlipidemia and history of pancytopenia History of seizure history of EGD with banded esophageal varices History of chronic atrial fibrillation not on anticoagulation because of her liver disease [id number] mitral regurgitation Plan: This is a pleasant 58 minus old female presents with hypoxia Continue with bronchodilator Monitor platelets hemoglobin and signs of bleeding Continue with antibiotic ceftriaxone and IV vancomycin follow-up culture results Continue with rifaximin and lactulose There is no GI coverage in this facility Continue with amiodarone 200 mg twice a day Continue with Levemir 34 units daily and NovoLog 10 units every 6 hours She is on sodium bicarb 100 mL per hour per pulmonary and nephrology's recommendation Follow up creatinine, check urinalysis. Patient has low urine output. We will monitor urine output and consider nephrology consult. Labs and medication were reviewed.. Continue same treatment. Continue with symptomatic treatment. Resume home medication. Monitor lytes and vitals. DVT and GI prophylaxis. Further recommendations as per clinical course of the patient DVT prophylaxis: no Subcutaneous heparin for thrombocytopenia GI Prophylaxis: Ppi Prognosis is guarded
--- NOTE | 2022-08-13 10:55 | P.PN ---
Subjective Progress Note Date: 08/13/22 Principal diagnosis: This is 67-year-old female seen in consultation with acute kidney injury secondary to ATN from septic shock and anemia. She was started on dialysis. She is also known with known alcoholic liver cirrhosis pneumonia with chest x- ray showing congestive heart failure. During dialysis yesterday 1 L ultrafiltration was successfully accomplished Urine output is 3 78 mL for the last 24 hours, vital signs stable blood pressure in the 110s systolic range afebrile On VDRF was on 70%, improved to 50% postdialysis Edema ++ On levo 0.04, Amiodarone, Vanco, HPI: Patient is a 67-year-old female seen in renal consultation for acute kidney injury on chronic kidney disease. Patient has chronic kidney disease stage IIIB with baseline creatinine the range of 1.1-1.5. Patient has history of nonalcoholic liver cirrhosis. Patient presented to the hospital with worsening shortness of breath and was subsequently diagnosed with pneumonia. She did receive 500 mL bolus of normal saline and is currently maintained on bicarb drip running at 100 mL an hour. She also has IV albumin ordered. She is on Levophed. Patient is oliguric. Hemoglobin was 6.2 today and she scheduled to receive 2 units of blood. Albumin is 2.7. Patient does have history of diabetes as well as coronary artery disease. She is currently intubated. She is a 90% FiO2. Patient has severe edema in the lower extremities. Her abdomen does not look distended. There is no evidence of any acute bleeding per the nurse. Patient does have history of variceal bleed. Objective - Vital Signs Vital signs: Vital Signs Temp 97.5 F L 08/13/22 08:00 Pulse 71 08/13/22 09:00 Resp 28 H 08/13/22 09:00 BP 110/51 08/13/22 09:00 Pulse Ox 100 08/13/22 09:00 FiO2 50 08/13/22 09:00 Intake & Output 08/12/22 08/13/22 08/13/22 18:59 06:59 18:59 Intake Total 2201.839 2546.952 543.825 Output Total 1213 165 75 Balance 750.108 6366.952 468.825 Weight 93 kg Intake: IV 1005.3 1504.6 367.8 0.9 pressure bag 72 72 18 Amiodarone 0.5mg dose 182.6 49.8 Amiodarone 1mg dose 33.3 Rocephin 50 Sodium Bicarbonate 900 1200 300 Intake, IV Titration 576.539 538.352 107.025 Amount Amiodarone 450 mg In 250 Dextrose 5% in Water 250 ml @ 0.5 MG/MIN 16.667 mls/hr IV .Q15H [facility] Rx#: [id number] Norepinephrine 4 mg In 429.098 114.711 10.924 Sodium Chloride 0.9% 250 ml @ 0.02 MCG/KG/MIN 6. 394 mls/hr IV .Q24H [facility] Rx#:[id number] propofoL 1,000 mg In 147.441 173.641 96.101 Empty Bag 1 bag @ 15 MCG/ KG/MIN 7.552 mls/hr IV . [id number] [facility] Rx#:[id number] Tube Feeding 230 414 39 Hemodialysis 300 Other 90 90 30 Output: Urine 213 165 75 Hemodialysis 1000 Other: Voiding Method Indwelling Catheter Indwelling Catheter Indwelling Catheter ABP, PAP, CO, CI - Last Documented Arterial Blood Pressure 119/36 HEENT exam no JVP no facial asymmetry Lungs are clear to auscultation fair air entry bilaterally Chest x-ray shows some improvement but congestive heart failure remained Heart sounds unremarkable A. fib Abdomen soft and nondistended Extremities 2+ edema Obtunded sedated - Labs CBC & Chem 7: 08/13/22 04:04 08/13/22 04:04 Labs: Abnormal Lab Results - Last 24 Hours (Table) 08/11/22 08/12/22 08/12/22 Range/Units 06:50 11:32 17:49 RBC (3.80-5.40) m/uL Hgb (11.4-16.0) gm/dL Hct (34.0-46.0) % RDW (11.5-15.5) % Plt Count (150-450) k/uL Lymphocytes # (1.0-4.8) k/uL ABG pO2 (83-108) mmHg ABG O2 Saturation (94-97) % Sodium (137-145) mmol/L Potassium (3.5-5.1) mmol/L Carbon Dioxide (22-30) mmol/L BUN (7-17) mg/dL Creatinine (0.52-1.04) mg/dL Glucose (74-99) mg/dL POC Glucose (mg/dL) 392 H 332 H (70-110) mg/dL Calcium (8.4-10.2) mg/dL Crossmatch See Detail 08/12/22 08/13/22 08/13/22 Range/Units 22:00 00:50 04:04 RBC (3.80-5.40) m/uL Hgb (11.4-16.0) gm/dL Hct (34.0-46.0) % RDW (11.5-15.5) % Plt Count (150-450) k/uL Lymphocytes # (1.0-4.8) k/uL ABG pO2 (83-108) mmHg ABG O2 Saturation (94-97) % Sodium 133 L (137-145) mmol/L Potassium 3.4 L (3.5-5.1) mmol/L Carbon Dioxide 20 L (22-30) mmol/L BUN 43 H (7-17) mg/dL Creatinine 1.89 H (0.52-1.04) mg/dL Glucose 389 H (74-99) mg/dL POC Glucose (mg/dL) 361 H 391 H (70-110) mg/dL Calcium 7.6 L (8.4-10.2) mg/dL Crossmatch 08/13/22 08/13/22 08/13/22 Range/Units 04:04 05:30 05:32 RBC 2.78 L (3.80-5.40) m/uL Hgb 8.1 L (11.4-16.0) gm/dL Hct 25.3 L (34.0-46.0) % RDW 16.6 H (11.5-15.5) % Plt Count 23 L (150-450) k/uL Lymphocytes # 0.2 L (1.0-4.8) k/uL ABG pO2 317 H (83-108) mmHg ABG O2 Saturation 100.0 H (94-97) % Sodium (137-145) mmol/L Potassium (3.5-5.1) mmol/L Carbon Dioxide (22-30) mmol/L BUN (7-17) mg/dL Creatinine (0.52-1.04) mg/dL Glucose (74-99) mg/dL POC Glucose (mg/dL) 437 H (70-110) mg/dL Calcium (8.4-10.2) mg/dL Crossmatch Microbiology - Last 24 Hours (Table) 08/11/22 12:20 Gram Stain - Final Bronchoalviolar Lavage - Right Bronchial Washings Culture - Final 08/11/22 05:18 Gram Stain - Final Sputum Sputum Culture - Final 08/11/22 12:20 Acid Fast Bacilli Smear - Final Bronchoalviolar Lavage - Right Acid Fast Bacilli Culture - Preliminary 08/10/22 21:30 Blood Culture - Preliminary Blood No Growth after 48 hours 08/11/22 17:35 Urine Culture - Final Urine,Voided 08/10/22 21:13 Blood Culture Gram Stain - Preliminary Blood Blood Culture - Preliminary Streptococcus pneumoniae Assessment and Plan Assessment: Assessment: 1. Acute kidney injury secondary to ATN secondary to septic shock and anemia. Oliguric. Started on dialysis yesterday 08/12/2022 2. Septic shock secondary to pneumonia on antibiotics and Levophed. 3. Metabolic acidosis secondary to acute kidney injury. CO2 is 20 4. Volume overload.edema++ and CHF CXR 5. Nonalcoholic liver cirrhosis. 6. Acute blood loss anemia. No active bleeding noted. Scheduled to receive 2 units of blood today. Hemoglobin 6.2. 7. Acute hypoxic respiratory failure. Plan: 1. Will dialyze her today because of the congestive heart failure and ventilator dependency 2. Discontinue sodium bicarbonate drip as a pH is 7.41 with a pCO2 of 35 and a bicarb of 24 3. cont IV Lasix 80 mg twice daily. 4. Reassess HD for tomorrow as well . 5. Unless there is no other choice would strongly urged discontinuation of vancomycin
[2022-08-13] MEDS ORDERED: POTASSIUM CHLORIDE 20 MEQ in WATER FOR INJECTION 1 100ML.BAG IVPB STA (11:06)
[2022-08-13 11:49] LABS: Glucose,Whole Blood 413 mg/dL (70-110)
[2022-08-13] MEDS ORDERED: VANCOMYCIN 1,500 MG in SODIUM CHLORIDE 0.9% 250 ML IVPB ONE (12:00)
[2022-08-13 18:08] LABS: Glucose,Whole Blood 247 mg/dL (70-110)
[2022-08-13 19:56] LABS: Allen Test Performed? no
[2022-08-13] MEDS: AMIODARONE 200 MG TAB PO SCH (20:19)
[2022-08-13 21:41] LABS: Glucose,Whole Blood 245 mg/dL (70-110)
[2022-08-13 22:45] LABS: Potassium 3.1 mmol/L (3.5-5.1)
[2022-08-13 22:46] LABS: Calcium 7.4 mg/dL (8.4-10.2); Magnesium 1.9 mg/dL (1.6-2.3)
[2022-08-13 23:55] LABS: Glucose,Whole Blood 223 mg/dL (70-110)
[2022-08-14] MEDS: MAGNESIUM SULFATE-D5W PMX 1 GM in DEXTROSE/WATER 1 100ML.BAG IVPB SCH ×2 (00:03→01:12)
[2022-08-14] MEDS: INSULIN ASPART (NovoLOG) 100 UNIT/ML VIAL SQ SCH ×7 (00:03→18:25)
[2022-08-14] MEDS: POTASSIUM BICARBONATE/CIT AC 20 MEQ TABLET.EFF PO SCH ×2 (00:03→01:12)
[2022-08-14] MEDS ORDERED: DEXTROSE 5% IN WATER 100 ML with AMIODARONE 150 MG IV ONE (01:08)
[2022-08-14] MEDS ORDERED: DEXTROSE 5% IN WATER 100 ML with AMIODARONE 300 MG IV ONE (01:45)
[2022-08-14] MEDS: AMIODARONE 450 MG in DEXTROSE 5% IN WATER 250 ML IV SCH ×4 (01:56→17:19)
[2022-08-14] MEDS: IPRATROPIUM-ALBUTEROL 3 ML NEB INHALATION PRN (03:52)
[2022-08-14 04:27] LABS: Glucose,Whole Blood 210 mg/dL (70-110)
[2022-08-14] MEDS: NOREPINEPHRINE 4 MG in SODIUM CHLORIDE 0.9% 250 ML IV SCH ×4 (04:28→20:06)
[2022-08-14 06:02] LABS: ABG Base Excess -1.6 mmol/L; ABG HCO3 23 mmol/L (21-25); ABG Oxygen Saturation 99.1 % (94-97); ABG PCO2 38 mmHg (35-45); ABG PO2 106 mmHg (83-108); ABG TCO2 24 mmol/L (19-24)
[2022-08-14 06:20] LABS: Glucose,Whole Blood 202 mg/dL (70-110)
[2022-08-14 06:26] LABS: Anisocytosis Slight; Basophils % (A) 0 %; Eosinophils # (A) 0.3 k/uL (0-0.7); Eosinophils % (A) 2 %; HCT 28.4 % (34.0-46.0); HGB 8.8 gm/dL (11.4-16.0); Hypochromasia Marked; Lymphocytes # (A) 0.5 k/uL (1.0-4.8); Lymphocytes % (A) 4 %; MCH 27.5 pg (25.0-35.0); MCV 88.9 fL (80.0-100.0); Mean Platelet Volume 15.2; Monocytes # (A) 0.4 k/uL (0-1.0); Monocytes % (A) 3 %; Neutrophils # (A) 11.4 k/uL (1.3-7.7); Neutrophils % (A) 90 %; Poikilocytosis Marked; RBC 3.19 m/uL (3.80-5.40); RDW 16.8 % (11.5-15.5); WBC 12.7 k/uL (3.8-10.6)
[2022-08-14 06:38] LABS: Platelet Count 28 k/uL (150-450)
[2022-08-14 06:52] LABS: Calcium 7.5 mg/dL (8.4-10.2); Potassium 3.3 mmol/L (3.5-5.1)
[2022-08-14 07:51] LABS: Vancomycin,Random 14.5 ug/mL
[2022-08-14] MEDS: PANTOPRAZOLE 40 MG/10 ML VIAL IV SCH (08:59)
[2022-08-14] MEDS: CHLORHEXIDINE GLUCONATE 15 ML CUP MUCOUS MEM SCH ×2 (08:59→20:14)
[2022-08-14] MEDS: METOPROLOL TARTRATE 25 MG TAB PO SCH ×2 (08:59→20:15)
[2022-08-14] MEDS: LACTULOSE 20 GM/30 ML CUP PO SCH (08:59)
[2022-08-14] MEDS: INSULIN DETEMIR (LEVEMIR) 100 UNIT/ML SYR SQ SCH ×2 (08:59→20:14)
[2022-08-14] MEDS ORDERED: POTASSIUM BICARBONATE/CIT AC 20 MEQ TABLET.EFF PO ONE (09:00)
[2022-08-14] MEDS: AMIODARONE 200 MG TAB PO SCH ×2 (09:12→20:07)
[2022-08-14] MEDS: RIFAXIMIN 550 MG TABLET PO SCH ×2 (09:12→20:15)
--- NOTE | 2022-08-14 09:23 | P.CRDCN ---
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 We have been consulted to see the patient for atrial fibrillation with RVR. Patient initially presented to the ER in respiratory distress. She is seen today intubated and mechanically ventilated. Patient is in septic shock secondary to pneumococcal pneumonia and multisystem organ failure. Her initial EKG showed sinus rhythm with short TX interval and nonspecific ST-T wave abnormalities. Patient went into atrial fibrillation and converted back into sinus rhythm. She is on a amiodarone 200 mg twice a day and Levophed. Patient is going in and out of sinus rhythm/atrial fibrillation with RVR. Patient's potassium was 3.1 and has been supplemented. Will start Lopressor 25 mg twice a day. She is not a candidate for anticoagulation, platelets are 28. Hemoglobin is low at 8.8. BUN and creatinine were elevated BUN 51 and creatinine 2.48 patient was initiated on dialysis, kidney function has improved, today BUN is 38 creatinine is 1.7 Review of Systems REVIEW OF SYSTEMS At the time of my exam: CONSTITUTIONAL: Denies fever or chills. EYES: Negative for vision changes ENT: Negative for hearing loss CARDIOVASCULAR: Denies chest pain, shortness of breath, diaphoresis, orthopnea, PND or palpitations. VASCULAR: Denies edema RESPIRATORY: Denies cough. GASTROINTESTINAL: Denies abdominal pain, diarrhea, constipation, nausea or vomiting. MUSCULOSKELETAL: Denies myalgias. NEUROLOGIC: Denies numbness, tingling, headache or weakness. ENDOCRINE: Denies fatigue, weight change, polydipsia or polyurina. GENITOURINARY: Denies burning, hematuria or urgency with micturation. HEMATOLOGIC: Denies history of anemia or bleeding. DERMATOLOGY: Denies rash or skin sores PSYCH: Negative for depression or hallucinations. Past Medical History Past Medical History: Coronary Artery Disease (CAD), Cancer, Chest Pain / Angina, Heart Failure, Diabetes Mellitus, Fibromyalgia, GERD/Reflux, Hyperlipidemia, Liver Disease, Renal Disease, Skin Disorder Additional Past Medical History / Comment(s): Non-ETOH cirrhosis, ascities, esophageal varices, pancytopenia, thrombycytopenia, anemia, IDDM with insulin pump, several nodules both lungs being monitored, urinary leakage at times and pt states she has diarrhea much of the time, psoriasis, cervical cancer, pt states 2 blockages in back of heart,was on transplant list but was deactivated at [facility] in [place]. plan to reevaluate soon. hx migraines, 2 seizures post back surgery, hiatal hernia, tips procedure. current right humerus fracture from a fall at home. currently in sling History of Any Multi-Drug Resistant Organisms: None Reported Past Surgical History: Back Surgery, Breast Surgery, Cholecystectomy, Heart Catheterization, Hysterectomy, Orthopedic Surgery, Tonsillectomy, Tubal Ligation Additional Past Surgical History / Comment(s): multi large volume Paracentesis, EGD with banded esophageal varices, colonoscopies, bilateral rotator cuff repai rs, bilateral breast bx-benign, back surgery in 2014, TIPS Past Anesthesia/Blood Transfusion Reactions: Previous Problems w/ Anesthesia, Family History of Problems w/ Anesthesia, Motion Sickness Additional Past Anesthesia/Blood Transfusion Reaction / Comment(s): difficulty breathing when coming out of anesthesia; difficulty waking up. Hypotension with general anesthesia. blood transfusions without reaction. sister- slow coming out and PONV Past Psychological History: No Psychological Hx Reported Additional Psychological History / Comment(s): . Smoking Status: Former smoker Past Alcohol Use History: None Reported Additional Past Alcohol Use History / Comment(s): smoked >20 years, quit in the . Smoked 1 ppd. Past Drug Use History: None Reported - Past Family History Mother Family Medical History: Cancer Additional Family Medical History / Comment(s): skin cancer. Father Family Medical History: Coronary Artery Disease (CAD) Additional Family Medical History / Comment(s): cabg/pacemaker Brother(s) Family Medical History: Cancer Sister(s) Family Medical History: Cancer, Deep Vein Thrombosis (DVT) Additional Family Medical History / Comment(s): Breast CA. Medications and Allergies Home Medications Medication Instructions Recorded Confirmed Type Ezetimibe [Zetia] 10 mg PO DAILY 09/04/16 08/10/22 History Sertraline [Zoloft] 25 mg PO DAILY 01/12/17 08/10/22 History Atorvastatin [Lipitor] 40 mg PO HS 02/03/20 08/10/22 History Vitamin A Acetate [Vitamin A] 20,000 unit SL DAILY 02/03/20 08/10/22 History Potassium Chloride ER [K-Dur 20] 20 meq PO DAILY 06/24/20 08/10/22 History Midodrine HCl [ProAmatine] 10 mg PO BID 03/15/21 08/10/22 History Pantoprazole Sodium [Protonix] 40 mg PO DAILY 03/15/21 08/10/22 History Furosemide [Lasix] 40 mg PO DAILY 07/25/21 08/10/22 History Montelukast [Singulair] 10 mg PO HS 01/03/22 08/10/22 History INSULIN LISPRO (humaLOG) [humaLOG] See Protocol SQ ACHS 08/10/22 08/10/22 History Insulin Detemir (Levemir) [Levemir] 24 unit SQ DAILY 08/10/22 08/10/22 History Lactulose [Constulose] 20 gm PO DAILY 08/10/22 08/10/22 History Metoprolol Tartrate [Lopressor] 25 mg PO DAILY 08/10/22 08/10/22 History Rifaximin [Xifaxan] 550 mg PO BID 08/10/22 08/10/22 History calcitrioL [Rocaltrol] 0.25 mcg PO MO 08/10/22 08/10/22 History Allergies Allergy/AdvReac Type Severity Reaction Status Date / Time doxycycline Allergy Rash/Hives Verified 07/08/22 19:17 iodine Allergy Rash/Hives Verified 07/08/22 19:17 Penicillins Allergy Rash/Hives Verified 07/08/22 19:17 shellfish derived Allergy Rash/Hives Verified 07/08/22 19:17 Sulfa (Sulfonamide Allergy Rash/Hives Verified 07/08/22 19:17 Antibiotics) venom-honey bee Allergy Anaphylaxis Verified 07/08/22 19:17 [bee venom (honey bee)] Physical Exam Vitals: Vital Signs Temp Pulse Resp BP Pulse Ox FiO2 08/14/22 08:18 88 08/14/22 08:07 84 08/14/22 08:01 50 08/14/22 08:00 97.6 F 85 32 H 98 50 08/14/22 07:00 84 28 H 98 50 08/14/22 06:00 85 28 H 98 50 08/14/22 05:00 86 29 H 98 50 08/14/22 04:08 87 08/14/22 04:00 86 28 H 100 50 08/14/22 03:57 50 08/14/22 03:56 85 08/14/22 03:52 50 08/14/22 03:00 114 H 29 H 96/54 96 08/14/22 02:00 122 H 29 H 95/47 97 50 08/14/22 01:36 50 08/14/22 01:00 152 H 25 H 95/47 97 50 08/14/22 00:17 93 08/14/22 00:08 84 08/14/22 00:01 50 08/14/22 00:00 97.5 F L 79 28 H 115/51 98 50 08/13/22 23:00 80 28 H 97 50 08/13/22 22:00 81 28 H 97 50 08/13/22 21:00 84 33 H 97 50 08/13/22 20:28 81 08/13/22 20:20 79 08/13/22 20:10 50 08/13/22 20:00 97.6 F 78 28 H 97 50 08/13/22 19:00 84 29 H 131/58 97 50 08/13/22 18:00 79 28 H 101/48 97 50 08/13/22 17:00 84 18 101/48 96 50 08/13/22 16:00 74 28 H 107/49 99 50 08/13/22 15:59 74 08/13/22 15:50 72 08/13/22 15:30 50 08/13/22 15:00 75 32 H 108/47 97 50 08/13/22 14:00 75 32 H 107/48 97 50 08/13/22 13:00 73 29 H 114/55 97 50 08/13/22 12:07 74 08/13/22 12:00 96.5 F L 71 22 111/47 100 50 08/13/22 11:54 70 08/13/22 11:30 50 08/13/22 11:00 70 29 H 109/48 96 50 08/13/22 10:00 71 18 109/55 96 50 Intake and Output 08/13/22 08/14/22 08/14/22 22:59 06:59 14:59 Intake Total 513.209 840.940 63.318 Output Total 85 65 30 Balance 428.209 775.940 33.318 Intake: IV 128 388 16 0.9 pressure bag 48 48 6 0.9ns 80 90 10 Magnesium Sulfate-D5w Pmx 200 1 gm In Dextrose/Water 1 100ml.bag @ 100 mls/hr IVPB Q1H [facility] Rx#: [id number] Rocephin 50 Intake, IV Titration 275.209 396.940 47.318 Amount Norepinephrine 4 mg In 175.209 231.104 47.318 Sodium Chloride 0.9% 250 ml @ 0.02 MCG/KG/MIN 6. 394 mls/hr IV .Q24H [facility] Rx#:[id number] propofoL 1,000 mg In 100 165.836 Empty Bag 1 bag @ 15 MCG/ KG/MIN 7.552 mls/hr IV . [id number] [facility]IO Rx#:[id number] Tube Feeding 80 20 Lipid 6 0.9 pressure bag 6 Other 30 30 Output: Urine 85 65 30 Other: Voiding Method Indwelling Catheter Indwelling Catheter Weight 95.1 kg ABP, PAP, CO, CI - Last 8 Hours Arterial Blood Pressure 126/39 Arterial Blood Pressure 143/43 Arterial Blood Pressure 119/37 Arterial Blood Pressure 123/41 Arterial Blood Pressure 128/43 Arterial Blood Pressure 101/43 Arterial Blood Pressure 112/65 PHYSICAL EXAMINATION VITAL SIGNS: Reviewed General: The patient is awake and alert, in no distress, and does not appear acutely ill. Skin: Skin is warm and dry and no rashes or lesions are noted. Eye: Pupils are equal, round and reactive to light, extra-ocular movements are intact; there is normal conjunctiva bilaterally. Ears, nose, mouth and throat: There are moist mucous membranes and no oral lesions. Neck: The neck is supple, there is no tenderness or JVD. Cardiovascular: There is irregular/regular rate and rhythm. No murmur, rub or gallop is appreciated. She continues to have intermittent episodes of atrial fibrillation with RVR Respiratory: Intubated and mechanically ventilated Gastrointestinal: Soft, non-distended, non-tender abdomen without masses or organomegaly noted. There is no rebound or guarding present. Bowel sounds are unremarkable. Back: There is no tenderness to palpation in the midline. There is no obvious deformity. Musculoskeletal: Normal ROM, no tenderness, There is no pedal edema. There is no calf tenderness or swelling. Extremities: Mild bilateral pitting edema Vascular: Femoral pulse is normal. Posterior tibial pulses are normal .Dorsalis pedis is palpable. Neurological: CN II-XII intact. There are no obvious motor or sensory deficits. Speech is normal. Psychiatric: Cooperative, appropriate mood & affect, normal judgment Results 08/14/22 06:00 08/14/22 06:00 CBC 08/14/22 Range/Units 06:00 WBC 12.7 H (3.8-10.6) k/uL RBC 3.19 L (3.80-5.40) m/uL Hgb 8.8 L (11.4-16.0) gm/dL Hct 28.4 L (34.0-46.0) % Plt Count 28 L (150-450) k/uL Comprehensive Metabolic Panel 08/13/22 08/14/22 Range/Units 21:40 06:00 Sodium 134 L 135 L (137-145) mmol/L Potassium 3.1 L 3.3 L (3.5-5.1) mmol/L Chloride 101 100 (98-107) mmol/L Carbon Dioxide 22 22 (22-30) mmol/L BUN 36 H 38 H (7-17) mg/dL Creatinine 1.61 H 1.70 H (0.52-1.04) mg/dL Glucose 227 H 191 H (74-99) mg/dL Calcium 7.4 L 7.5 L (8.4-10.2) mg/dL Current Medications Generic Name Dose Route Start Last Admin Trade Name Freq PRN Reason Stop Dose Admin Albuterol/Ipratropium 3 ml 08/10/22 21:39 08/14/22 03:52 Ipratropium-Albuterol 3 Ml Neb INHALATION 3 ml RT-Q4H PRN Administration Shortness Of Breath Or Wheezing Amiodarone HCl 200 mg 08/13/22 21:00 08/14/22 09:12 Amiodarone 200 Mg Tab PO Not Given BID [facility] Chlorhexidine Gluconate 15 ml 08/10/22 22:30 08/14/22 08:59 Chlorhexidine Gluconate 15 Ml Cup MUCOUS MEM 15 ml BID [facility]IO Administration Dextrose/Water 25 ml 08/11/22 09:46 Dextrose 50% Syringe 50 Ml IVP PER PROTOCOL PRN Hypoglycemia Protocol Dextrose/Water 50 ml 08/11/22 09:46 Dextrose 50% Syringe 50 Ml IVP PER PROTOCOL PRN Hypoglycemia Protocol Acetaminophen 1,000 mg/ IV 100 mls @ 400 mls/hr 10/13/22 22:17 Solution IVPB Q6HR PRN Fever and/ or Pain Propofol 1,000 mg/ IV Solution 100 mls @ 7.552 mls/hr 08/10/22 22:30 08/14/22 06:41 IV 30 mcg/kg/min .[id number] [facility] 15.105 mls/hr Administration Protocol 15 MCG/KG/MIN Norepinephrine Bitartrate 4 mg 254 mls @ 6.394 mls/hr 08/11/22 01:00 08/14/22 08:00 / Sodium Chloride IV 0.11 mcg/kg/min .Q24H [facility] 35.169 mls/hr Titration Protocol 0.02 MCG/KG/MIN Ceftriaxone Sodium 2 gm/ 50 mls @ 100 mls/hr 08/11/22 23:00 08/13/22 23:13 Sodium Chloride IVPB 100 mls/hr Q24H [facility] Administration Protocol Amiodarone HCl 450 mg/ 250 mls @ 16.667 mls/hr 08/14/22 02:00 08/14/22 01:56 Dextrose/Water IV 08/14/22 19:59 0.5 mg/min .Q15H [facility] 16.667 mls/hr Administration Protocol 0.5 MG/MIN Insulin Aspart 0 unit 08/11/22 12:00 08/14/22 06:22 Insulin Aspart (Novolog) 100 Unit/Ml Vial SQ 4 unit Q6HR [facility] Administration Protocol Insulin Aspart 10 unit 08/13/22 10:00 08/14/22 04:28 Insulin Aspart (Novolog) 100 Unit/Ml Vial SQ 10 unit Q6H [facility] Administration Insulin Detemir 38 unit 08/14/22 09:00 08/14/22 08:59 Insulin Detemir (Levemir) 100 Unit/Ml Syr SQ 38 unit BID [facility] Administration Lactulose 20 gm 08/11/22 10:15 08/14/22 08:59 Lactulose 20 Gm/30 Ml Cup PO 20 gm DAILY [facility] Administration Metoprolol Tartrate 25 mg 08/14/22 09:00 08/14/22 08:59 Metoprolol Tartrate 25 Mg Tab PO 25 mg BID [facility] Administration Multi-Ingred Cream/Lotion/Oil/Oint 1 applic 08/10/22 21:39 Artificial Tears Ointment 3.5 Gm Tube BOTH EYES Q4HR PRN Dry Eye(s) Naloxone HCl 0.2 mg 08/10/22 21:39 Naloxone 0.4 Mg/Ml 1 Ml Vial IV Q2M PRN Opioid Reversal Pantoprazole Sodium 40 mg 08/11/22 09:00 08/14/22 08:59 Pantoprazole 40 Mg/10 Ml Vial IV 40 mg DAILY [facility]IO Administration Rifaximin 550 mg 08/11/22 21:00 08/14/22 09:12 Rifaximin 550 Mg Tablet PO 09/10/22 21:01 550 mg BID [facility]IO Administration Protocol Intake and Output 08/13/22 08/14/22 08/14/22 22:59 06:59 14:59 Intake Total 513.209 840.940 63.318 Output Total 85 65 30 Balance 428.209 775.940 33.318 Intake: IV 128 388 16 0.9 pressure bag 48 48 6 0.9ns 80 90 10 Magnesium Sulfate-D5w Pmx 200 1 gm In Dextrose/Water 1 100ml.bag @ 100 mls/hr IVPB Q1H [facility] Rx#: [id number] Rocephin 50 Intake, IV Titration 275.209 396.940 47.318 Amount Norepinephrine 4 mg In 175.209 231.104 47.318 Sodium Chloride 0.9% 250 ml @ 0.02 MCG/KG/MIN 6. 394 mls/hr IV .Q24H [facility] Rx#:[id number] propofoL 1,000 mg In 100 165.836 Empty Bag 1 bag @ 15 MCG/ KG/MIN 7.552 mls/hr IV . [id number] [facility] Rx#:[id number] Tube Feeding 80 20 Lipid 6 0.9 pressure bag 6 Other 30 30 Output: Urine 85 65 30 Other: Voiding Method Indwelling Catheter Indwelling Catheter Weight 95.1 kg 08/14/22 06:00 08/14/22 06:00 Assessment and Plan Assessment: Persistent atrial fibrillation with RVR Plan: Start Lopressor 25 mg twice a day Continue with amiodarone 200 mg twice a day Continue with telemetry monitoring Further recommendations based on clinical course The above impression and plan of care have been discussed and directed by the signing physician. Jeannie Fang, nurse practitioner, acting as scribe for signing physician.
[2022-08-14 09:41] LABS: INR 1.5 (<1.2); Prothrombin Time 15.6 sec (9.0-12.0)
[2022-08-14 09:50] LABS: Hepatitis B Surface AB- Quant 3.5 mIU/mL; Hepatitis B Surface Antibody Nonreactive (Nonreactive)
[2022-08-14 10:03] LABS: Hepatitis B Core IgM Nonreactive (Nonreactive); Hepatitis B Surface Antigen Nonreactive (Nonreactive)
--- NOTE | 2022-08-14 11:12 | P.PN ---
Subjective Progress Note Date: 08/14/22 Principal diagnosis: Acute hypoxic respiratory failure secondary to acute streptococcal pneumonia, sepsis and septic shock. This is a 67-year-old female patient with known history of nonalcoholic liver failure/cirrhosis. 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 The patient has been seen by the GI service at the [facility]. She underwent a TIPS procedures as the patient was requiring multiple episodes of paracentesis over the years. The patient has had previous episodes of massive GI bleed and this was secondary to portal hypertension and esophageal varices. Taking care of this patient in the past and the intensive care unit. My last encounter with her was in June 2021 and backbench I treated with shortness of breath and she had large bilateral pleural effusion and atelectasis and she was hypoxic and she was managed accordingly. The patient also has a long list of comorbid conditions Primus related to her liver cirrhosis. She is diabetic and she has known history of coronary artery disease. The patient came in yesterday to the emergency department with acute respiratory distress. This started a few days prior to her admission. She was confused and not a whole lot of history was obtained from her in the emergency. She was reporting no fever or chills. No aspiration. The patient was in significant distress. They tried on BiPAP initially and she failed and subsequently she got intubated and placed on a mechanical ventilator. Post intubation chest x-ray showed extensive bilateral lung consolidations more so on the right. A repeat chest x-ray was on this morning and it is humid and G-tube are again seen and the patient has extensive bilateral airspace disease seen. This morning, the patient is sedated with propofol running at 20 mcg/kg/m. She is on assist control of 28 with a tidal volume of 450 and FiO2 of 90% with a PEEP of 5. Her blood work from this morning shows a white cell count of 6.7 which dropped from 15.1. Hemoglobin is down to 6.2 from a baseline of 7.8 and a platelet count was 91,000 yesterday. Her INR today is 1.7 with a PT of 17.8. The patient also has a component of and I get metabolic acidosis with a gap of 16 at the time of admission, current serum bicarbs of 14 with a gap of 12 and sodium level of 136. Potassium level is at 4.7. Her lactic acid initially was 4.6-1.9. Her Calcium Is at 7.7. Bilirubin Is at 1. LFTs Are Normal. Serum Albumin Is at 2.7. Covid 19 Testing Was Negative. Influenza Screen Was Negative. Alcohol Level Was Negative. Most Recent Blood Gas Shows a pH of 7.34 with a PCO2 of 25 and PO2 of 87. She Was Borderline Hypotensive. She Was Given 2 Doses of Albumin Yesterday 25%. She Was Also Given a Bolus of Saline in the Emergency Department. The Bolus of Saline was in order of 500 mL. Currently she is on a bicarbonate infusion running at a rate of 100 mL an hour. Urine output is extremely low and order a fasting cc on an hourly basis. Antibiotic coverage was also provided and the patient was started on IV Zosyn. She is on pressors and this was started yesterday and norepinephrine is O- 0.06 mcg/kg/m. 08/13/2022, the patient is being seen for a follow-up. She is in septic shock secondary to pneumococcal pneumonia and multisystem organ failure. The patient this morning remains sedated and she is currently on propofol running at 20 mcg/kg/m. She was she is well rested and she is synchronous with the mechanical ventilator. She was doing well on the mechanical ventilator. However earlier this morning, she had an episode of desaturation. Repeat chest x-rays were done and the findings were essentially consistent with bilateral pneumonia. No evidence of any pneumothorax. No evidence of any interval worsening. Based on that, the patient was placed on a PEEP of 16 to improve her oxygenation and FiO2 was kept at 70% and she is currently at the rate of 28 with a tidal volume of 375. Those changes were done as the patient was desaturating and I had to lower the tidal volume and increase the PEEP. Ultimately, this turned out to be probably a mucous plug. After repeated suctioning, she improved. Oxygenation also improved and the pO2 is up to when necessary 17. Repeat blood gas these to be done to reevaluate her oxygenation. The pH is 7.41 with a pCO2 of 35. I dropped the PEEP by 2 and currently she is on a PEEP of 14. Peak airway pressures around 36. The patient otherwise is still septic and hypotensive. In terms of IV fluids, she is receiving bicarb infusion at that eighth of 100 mL an hour. She underwent hemodialysis yesterday as the patient was having significant amount of fluid overload. Dialysis catheter was inserted yesterday and he right groin. First session of hemodialysis established with a total of 1000 mL of ultrafiltration. She did convert into normal sinus rhythm and she is out of atrial fibrillation for now. However, she is still requiring pressors and norepinephrine is running at a rate of 0.04 mcg/kg/m. I'm going to switch this patient to oral amiodarone. That echocardiogram showed a preserved LV function. In terms of labs, the white cycles of 6.1 with a hemoglobin of 8.1 and a platelet count that dropped down to 23. The patient was a sodium of 133, potassium of 3.4, bicarb of 20, BUN of 43 with a creatinine of 1.89. Stool for C. diff has been negative. The patient remains on a combination of Rocephin and vancomycin. The vancomycin random level was 22. The patient does she is also on NovoLog units 4 times a day and the sliding scale coverage. We will need to monitor the blood sugar control and use a drip if needed. CVP is currently at 15. not have STEPHON is on the vancomycin yet. Enteral feeding is accomplished by vital HP at the rate of 39 mL an hour. He is able to tolerate the enteral feeding without having any major difficulties. She is on Levemir insulin and this was started today as the patient's blood sugar was considerably elevated. CVP at 15 Reevaluated today on 08/14/22, patient remains in the ICU, intubated and mechanically ventilated. Her ventilator settings are assist control rate of 20 06/17/1977 FiO2 50% and PEEP of 12. ABG showed a pO2 of 106 pCO2 38 pH of 7.40, hence no changes were made in her present ventilator settings. Patient remains on multiple drips including amiodarone at 0.5 mg/m she is also on norepinephrine at 0.14 mcg/kg/m propofol at 30 mcg/kg/m IV fluid at KVO. Blood cultures were positive for Streptococcus pneumonia. Patient remains on Rocephin. Yesterday patient had hemodialysis, and 200 mL only were taken off. Intermittently the patient goes in A. fib and RVR, remains on amiodarone, cardiology was consulted on this patient today. Patient received a unit of packed RBCs on 08/11 Hemoglobin today is 8.8. Hemoglobin was as low as 6.2 on 08/11. No evidence of active bleeding. Patient is clearly developing multisystem organ failure. And she is nowhere near any weaning or extubation at this point, I believe as a matter of fact her condition is extremely poor, and prognosis is extremely poor. Her expected mortality is over 95% at this point. Clearly the patient has a multisystem organ failure. Today I recommended checking the pressures of the urinary bladder to make sure that the patient does not have abdominal compartment syndrome, the pressures came back to be reasonable/16 patient had poor tolerance to enteral feedings. Remains on rifaximin and she is also on lactulose for elevated ammonia level. Patient clearly has a hepatic encephalopathy. INR today is 1.5. Platelets remained low at 28,000, I may consult interventional radiology for paracentesis/ultrasound-guided. BUN is 38 creatinine 1.70 bicarb is 20 to today. Objective - Vital Signs Vital signs: Vital Signs Temp 97.6 F 08/14/22 08:00 Pulse 70 08/14/22 10:00 Resp 28 H 08/14/22 10:00 BP 96/54 08/14/22 03:00 Pulse Ox 97 08/14/22 10:00 FiO2 50 08/14/22 08:01 Intake & Output 08/13/22 08/14/22 08/14/22 18:59 06:59 18:59 Intake Total 1148.577 3979.149 95.318 Output Total 190 115 80 Balance 791.647 9328.149 15.318 Weight 95.1 kg 95.1 kg Intake: IV 708.4 452 48 0.9 pressure bag 72 72 18 0.9ns 70 130 30 Amiodarone 0.5mg dose 66.4 Magnesium Sulfate-D5w Pmx 200 1 gm In Dextrose/Water 1 100ml.bag @ 100 mls/hr IVPB Q1H [facility] Rx#: [id number] Rocephin 50 Sodium Bicarbonate 500 Intake, IV Titration 207.025 572.149 47.318 Amount Norepinephrine 4 mg In 10.924 406.313 47.318 Sodium Chloride 0.9% 250 ml @ 0.02 MCG/KG/MIN 6. 394 mls/hr IV .Q24H [facility] Rx#:[id number] propofoL 1,000 mg In 196.101 165.836 Empty Bag 1 bag @ 15 MCG/ KG/MIN 7.552 mls/hr IV . [id number] [facility] Rx#:[id number] Tube Feeding 99 60 Lipid 6 0.9 pressure bag 6 Other 30 60 Output: Urine 190 115 80 Other: Voiding Method Indwelling Catheter Indwelling Catheter ABP, PAP, CO, CI - Last Documented Arterial Blood Pressure 120/41 - Exam Physical Exam: Revealed a 67-year-old female sedated, intubated, in no distress. Head: Atraumatic, normocephalic. Endotracheal tube and orogastric tube are in tact HEENT:[Neck is supple.] [No neck masses.] [No thyromegaly.] [No JVD.] Chest: [Scattered crackles and rhonchi noted bilaterally. Cardiac Exam: [Normal S1 and S2, no S3 gallop, 2/6 systolic murmur thought the precordium. Abdomen: [Distended, nontender, suspect ascites. Fluid wave and shifting du llness noted. Diminished bowel sounds. Umbilical hernia noted/ Extremities: [No clubbing, 3+ bipedal edema, no cyanosis.] Neurological Exam: Cannot assess, patient is sedated. Psychiatric: Could not assess. Skin: No rashes. - Labs CBC & Chem 7: 08/14/22 06:00 08/14/22 06:00 Labs: Abnormal Lab Results - Last 24 Hours (Table) 08/13/22 08/13/22 08/13/22 Range/Units 09:16 11:47 18:07 WBC (3.8-10.6) k/uL RBC (3.80-5.40) m/uL Hgb (11.4-16.0) gm/dL Hct (34.0-46.0) % RDW (11.5-15.5) % Plt Count (150-450) k/uL Neutrophils # (1.3-7.7) k/uL Lymphocytes # (1.0-4.8) k/uL PT (9.0-12.0) sec INR (<1.2) ABG pO2 144 H (83-108) mmHg ABG Total CO2 25 H (19-24) mmol/L ABG O2 Saturation 100.0 H (94-97) % Sodium (137-145) mmol/L Potassium (3.5-5.1) mmol/L BUN (7-17) mg/dL Creatinine (0.52-1.04) mg/dL Glucose (74-99) mg/dL POC Glucose (mg/dL) 413 H 247 H (70-110) mg/dL Calcium (8.4-10.2) mg/dL 08/13/22 08/13/22 08/13/22 Range/Units 21:39 21:40 23:53 WBC (3.8-10.6) k/uL RBC (3.80-5.40) m/uL Hgb (11.4-16.0) gm/dL Hct (34.0-46.0) % RDW (11.5-15.5) % Plt Count (150-450) k/uL Neutrophils # (1.3-7.7) k/uL Lymphocytes # (1.0-4.8) k/uL PT (9.0-12.0) sec INR (<1.2) ABG pO2 (83-108) mmHg ABG Total CO2 (19-24) mmol/L ABG O2 Saturation (94-97) % Sodium 134 L (137-145) mmol/L Potassium 3.1 L (3.5-5.1) mmol/L BUN 36 H (7-17) mg/dL Creatinine 1.61 H (0.52-1.04) mg/dL Glucose 227 H (74-99) mg/dL POC Glucose (mg/dL) 245 H 223 H (70-110) mg/dL Calcium 7.4 L (8.4-10.2) mg/dL 08/14/22 08/14/22 08/14/22 Range/Units 04:26 05:56 06:00 WBC (3.8-10.6) k/uL RBC (3.80-5.40) m/uL Hgb (11.4-16.0) gm/dL Hct (34.0-46.0) % RDW (11.5-15.5) % Plt Count (150-450) k/uL Neutrophils # (1.3-7.7) k/uL Lymphocytes # (1.0-4.8) k/uL PT (9.0-12.0) sec INR (<1.2) ABG pO2 (83-108) mmHg ABG Total CO2 (19-24) mmol/L ABG O2 Saturation 99.1 H (94-97) % Sodium 135 L (137-145) mmol/L Potassium 3.3 L (3.5-5.1) mmol/L BUN 38 H (7-17) mg/dL Creatinine 1.70 H (0.52-1.04) mg/dL Glucose 191 H (74-99) mg/dL POC Glucose (mg/dL) 210 H (70-110) mg/dL Calcium 7.5 L (8.4-10.2) mg/dL 08/14/22 08/14/22 08/14/22 Range/Units 06:00 06:19 09:15 WBC 12.7 H (3.8-10.6) k/uL RBC 3.19 L (3.80-5.40) m/uL Hgb 8.8 L (11.4-16.0) gm/dL Hct 28.4 L (34.0-46.0) % RDW 16.8 H (11.5-15.5) % Plt Count 28 L (150-450) k/uL Neutrophils # 11.4 H (1.3-7.7) k/uL Lymphocytes # 0.5 L (1.0-4.8) k/uL PT 15.6 H (9.0-12.0) sec INR 1.5 H (<1.2) ABG pO2 (83-108) mmHg ABG Total CO2 (19-24) mmol/L ABG O2 Saturation (94-97) % Sodium (137-145) mmol/L Potassium (3.5-5.1) mmol/L BUN (7-17) mg/dL Creatinine (0.52-1.04) mg/dL Glucose (74-99) mg/dL POC Glucose (mg/dL) 202 H (70-110) mg/dL Calcium (8.4-10.2) mg/dL Microbiology - Last 24 Hours (Table) 08/10/22 21:30 Blood Culture - Preliminary Blood No Growth after 72 hours 08/10/22 21:13 Blood Culture Gram Stain - Final Blood Blood Culture - Final Streptococcus pneumoniae 08/11/22 12:20 Gram Stain - Final Bronchoalviolar Lavage - Right Bronchial Washings Culture - Final 08/11/22 05:18 Gram Stain - Final Sputum Sputum Culture - Final Assessment and Plan Assessment: Impression: Acute hypoxic respiratory failure secondary to acute streptococcal pneumonia infection and streptococcal bacteremia. Acute sepsis and septic shock. Hypotension secondary to sepsis and septic shock. Multisystem organ failure Acute kidney injury Acute metabolic acidosis requiring bicarbonate initially secondary to acute renal failure sepsis and septic shock. Acute on chronic anemia Acute metabolic encephalopathy Acute hepatic encephalopathy Liver cirrhosis/ascites, history of TIPS for recurrent ascites. Pancytopenia secondary to sepsis and liver failure as well as hypersplenism Portal hypertension and previous history of GI bleeding History of psoriasis and psoriatic arthritis History of pulmonary nodules Fibromyalgia History of diabetes, patient had insulin pump Coronary artery disease Severe pulmonary hypertension, possible hepatopulmonary syndrome New onset atrial fibrillation with RVR. Recommendation: Continue ventilatory support, no changes were made in her vent settings which are 28/375/50/12 Continue antibiotics for streptococcal pneumonia bacteremia Continue hemodialysis/ultrafiltration nephrology Consult interventional radiology for possible paracentesis Continue amiodarone and cardiology was consulted because of poorly-controlled atrial fibrillation and RVR Continue norepinephrine and titrate accordingly Check bladder pressures to rule out abdominal compartment syndrome. Continue antibiotics Continue enteral feeding but slowly and hold if the patient develops residual. Or vomiting Continue lactulose and rifaximin for elevated ammonia level and hepatic encephalopathy Based on the above, the overall picture is extremely poor, Family would have to be approached regarding CODE STATUS, I believe mortalities over 90% at this point. Prognosis is extremely poor. We will continue to follow. Critical care time is over 30minutes Time with Patient: Greater than 30
[2022-08-14 11:41] LABS: Glucose,Whole Blood 141 mg/dL (70-110)
--- NOTE | 2022-08-14 11:48 | XR ---
EXAMINATION TYPE: XR chest 1V portable DATE OF EXAM: 08/14/2022 COMPARISON: Chest x-ray 08/13/2022 HISTORY: Intubated TECHNIQUE: Single frontal view of the chest is obtained. FINDINGS: Endotracheal tube, NG tube, left subclavian central venous catheter are overlying appropri ate positions. No evident pneumothorax. Bibasilar density persists, there is blunting the costophreni c angles. I lateral patchy airspace disease is noted. Patient is rotated. There are overlying artifac ts. Old right humeral fracture is noted. Cardiac mediastinal silhouette is likely stable. IMPRESSION: Correlate for pneumonia, ARDS, congestive heart failure
--- NOTE | 2022-08-14 12:14 | P.PN ---
Subjective Patient is a 67-year-old female seen for follow-up for acute kidney injury secondary to ATN from septic shock and anemia. Urine output has been 5-20 mL an hour. Patient was dialyzed on 08/12/2022 for volume overload. FiO2 was decreased from 70% to 50%. Patient remains significantly volume overloaded. Currently on levo fed at a stable dose 0.11microg/min Maintained on amiodarone drip as well. Currently checking intra-abdominal pressure to rule out abdominal compartment syndrome. Objective - Vital Signs Vital signs: Vital Signs Temp 97.6 F 08/14/22 08:00 Pulse 67 08/14/22 11:00 Resp 23 08/14/22 11:00 BP 96/54 08/14/22 03:00 Pulse Ox 98 08/14/22 11:00 FiO2 50 08/14/22 11:32 Intake & Output 08/13/22 08/14/22 08/14/22 18:59 06:59 18:59 Intake Total 1883.412 6801.149 188.857 Output Total 190 115 90 Balance 164.767 6400.149 98.857 Weight 95.1 kg 95.1 kg Intake: IV 708.4 452 64 0.9 pressure bag 72 72 24 0.9ns 70 130 40 Amiodarone 0.5mg dose 66.4 Magnesium Sulfate-D5w Pmx 200 1 gm In Dextrose/Water 1 100ml.bag @ 100 mls/hr IVPB Q1H [facility] Rx#: [id number] Rocephin 50 Sodium Bicarbonate 500 Intake, IV Titration 207.025 572.149 124.857 Amount Norepinephrine 4 mg In 10.924 406.313 47.318 Sodium Chloride 0.9% 250 ml @ 0.02 MCG/KG/MIN 6. 394 mls/hr IV .Q24H [facility] Rx#:[id number] propofoL 1,000 mg In 196.101 165.836 77.539 Empty Bag 1 bag @ 15 MCG/ KG/MIN 7.552 mls/hr IV . [id number] [facility] Rx#:[id number] Tube Feeding 99 60 Lipid 6 0.9 pressure bag 6 Other 30 60 Output: Urine 190 115 90 Other: Voiding Method Indwelling Catheter Indwelling Catheter ABP, PAP, CO, CI - Last Documented Arterial Blood Pressure 129/51 - Exam Patient is sedated and intubated Examination of the heart S1 and S2 Examination lungs bilateral breath sounds are heard Abdomen is soft distended with abdominal wall edema Examination of the lower extremities shows edema 2-3+ bilaterally - Labs CBC & Chem 7: 08/14/22 06:00 08/14/22 06:00 Labs: Abnormal Lab Results - Last 24 Hours (Table) 08/13/22 08/13/22 08/13/22 Range/Units 09:16 18:07 21:39 WBC (3.8-10.6) k/uL RBC (3.80-5.40) m/uL Hgb (11.4-16.0) gm/dL Hct (34.0-46.0) % RDW (11.5-15.5) % Plt Count (150-450) k/uL Neutrophils # (1.3-7.7) k/uL Lymphocytes # (1.0-4.8) k/uL PT (9.0-12.0) sec INR (<1.2) ABG pO2 144 H (83-108) mmHg ABG Total CO2 25 H (19-24) mmol/L ABG O2 Saturation 100.0 H (94-97) % Sodium (137-145) mmol/L Potassium (3.5-5.1) mmol/L BUN (7-17) mg/dL Creatinine (0.52-1.04) mg/dL Glucose (74-99) mg/dL POC Glucose (mg/dL) 247 H 245 H (70-110) mg/dL Calcium (8.4-10.2) mg/dL 08/13/22 08/13/22 08/14/22 Range/Units 21:40 23:53 04:26 WBC (3.8-10.6) k/uL RBC (3.80-5.40) m/uL Hgb (11.4-16.0) gm/dL Hct (34.0-46.0) % RDW (11.5-15.5) % Plt Count (150-450) k/uL Neutrophils # (1.3-7.7) k/uL Lymphocytes # (1.0-4.8) k/uL PT (9.0-12.0) sec INR (<1.2) ABG pO2 (83-108) mmHg ABG Total CO2 (19-24) mmol/L ABG O2 Saturation (94-97) % Sodium 134 L (137-145) mmol/L Potassium 3.1 L (3.5-5.1) mmol/L BUN 36 H (7-17) mg/dL Creatinine 1.61 H (0.52-1.04) mg/dL Glucose 227 H (74-99) mg/dL POC Glucose (mg/dL) 223 H 210 H (70-110) mg/dL Calcium 7.4 L (8.4-10.2) mg/dL 08/14/22 08/14/22 08/14/22 Range/Units 05:56 06:00 06:00 WBC 12.7 H (3.8-10.6) k/uL RBC 3.19 L (3.80-5.40) m/uL Hgb 8.8 L (11.4-16.0) gm/dL Hct 28.4 L (34.0-46.0) % RDW 16.8 H (11.5-15.5) % Plt Count 28 L (150-450) k/uL Neutrophils # 11.4 H (1.3-7.7) k/uL Lymphocytes # 0.5 L (1.0-4.8) k/uL PT (9.0-12.0) sec INR (<1.2) ABG pO2 (83-108) mmHg ABG Total CO2 (19-24) mmol/L ABG O2 Saturation 99.1 H (94-97) % Sodium 135 L (137-145) mmol/L Potassium 3.3 L (3.5-5.1) mmol/L BUN 38 H (7-17) mg/dL Creatinine 1.70 H (0.52-1.04) mg/dL Glucose 191 H (74-99) mg/dL POC Glucose (mg/dL) (70-110) mg/dL Calcium 7.5 L (8.4-10.2) mg/dL 08/14/22 08/14/22 08/14/22 Range/Units 06:19 09:15 11:39 WBC (3.8-10.6) k/uL RBC (3.80-5.40) m/uL Hgb (11.4-16.0) gm/dL Hct (34.0-46.0) % RDW (11.5-15.5) % Plt Count (150-450) k/uL Neutrophils # (1.3-7.7) k/uL Lymphocytes # (1.0-4.8) k/uL PT 15.6 H (9.0-12.0) sec INR 1.5 H (<1.2) ABG pO2 (83-108) mmHg ABG Total CO2 (19-24) mmol/L ABG O2 Saturation (94-97) % Sodium (137-145) mmol/L Potassium (3.5-5.1) mmol/L BUN (7-17) mg/dL Creatinine (0.52-1.04) mg/dL Glucose (74-99) mg/dL POC Glucose (mg/dL) 202 H 141 H (70-110) mg/dL Calcium (8.4-10.2) mg/dL Microbiology - Last 24 Hours (Table) 08/10/22 21:30 Blood Culture - Preliminary Blood No Growth after 72 hours 08/10/22 21:13 Blood Culture Gram Stain - Final Blood Blood Culture - Final Streptococcus pneumoniae 08/11/22 12:20 Gram Stain - Final Bronchoalviolar Lavage - Right Bronchial Washings Culture - Final 08/11/22 05:18 Gram Stain - Final Sputum Sputum Culture - Final Assessment and Plan Assessment: 1. Acute kidney injury secondary to ATN secondary to septic shock and anemia. Oliguric. Started on dialysis yesterday 08/12/2022 2. Septic shock secondary to pneumonia on antibiotics and Levophed. 3. Metabolic acidosis secondary to acute kidney injury. 4. Volume overload.edema++ and CHF on CXR 5. Nonalcoholic liver cirrhosis. 6. Acute blood loss anemia. No active bleeding noted. Status post 2 units packed RBCs. 7. Acute hypoxic respiratory failure, currently on the vent. Plan: Repeat hemodialysis today Replace potassium Increase UF as tolerated Continue to avoid nephrotoxic agents.
--- NOTE | 2022-08-14 15:53 | CDI ---
Documentation Clarification Form Date: 08/14/2022 03:51:18 PM From: Radha Bobby CCS, CCDS Admit Date: 08/10/2022 09:42:00 PM Patient Name: Carol Gore Visit Number: [id number] Discharge Date: ATTENTION: The Clinical Documentation Specialists (CDI) and [facility] Coding Staff appreciate your assistance in clarifying documentation. Please respond to the clarification below the line at the bottom and electronically sign. The CDI & [facility] Coding staff will review the response and follow-up if needed. Please note: Queries are made part of the Legal Health Record. If you have any questions, please contact the author of this message via ITS. Dr. Charlie Orona: Heart Failure and CHF is documented in the patient's medical history throughout the chart without further specification. Per the 08/11 History & Physical, the patient has Acute CHF Exacerbation with EF 55-60%. 3+ bilateral pitting leg edema. 08/14 Cardiology Consulted for Atrial fibrillation. Heart Failure is noted in the patient's past medical history. Home meds include Lasix 40 mg Daily. No pedal edema. Mild bilateral pitting edema. Additional information regarding the Type & Acuity of CHF is requested. History/Risk Factors per the 08/11 H/P: CAD, Angina, Heart Failure, IDDM II w/pump, Fibromyalgia, GERD, Hyperlipidemia, Non-EtOH cirrhosis, Ascites, Esophageal varices, several nodules in bilateral lungs, Cervical Cancer, Waiting liver transplant at [facility]. Former smoker. Clinical Indicators: Presented to the ED via EMS in Acute Respiratory Distress, Confused. Per paramedics: patient was edematous & SOB. Admit to ICU with Acute Respiratory Failure, Pneumonia, CHF, Lactic Acidosis, Anemia and GILDA. 08/10 VS: T 97.8, P 98, 45; R 38, 42; BP 111/46, PO 88 15% nrb, 100% BiPAP, intubated on 08/10, remains on vent as of 08/14. 08/10 BNP: 15,400 08/10 CXR: Marked pulmonary/pleural abnormalities, right much greater than left. 08/11 Echocardiogram Results (ordered by Pulmonary/Critical Care on 08/11): EF 55-60%, Flattened septum in systole & diastole consistent with right ventricle pressure and volume overload. Moderate to severe right ventricular dilatation. Severe pulmonary hypertension. Severe right atrial dilatation. Mild-moderate MR, Mild aortic stenosis. Aortic valve sclerosis, Mod-severe TR, Trace pulmonic regurgitation. Treatment 08/10: BiPAP - Vent, NGT, Peterson catheter, Blood cultures, INH Duoneb 3 ml x1, IV Lasix 40 mg x1, IV Solumedrol 125 mg x1, Nitro paste x1, IV Ativan 1 mg x2, IV Morphine 4 mg x1, IV Quelicin 100 mg x1, IV propofol 100 mls q13H, IV Rocephin 2,000 mg x1, INH Duoneb q4h/prn, IV Na Chl 1,000 mls @ 100 mls/hr q10H, IV Acetaminophen 100 mls @ 400 mls/hr q6H/prn. In your professional opinion, can you please clarify the Acuity & Type of CHF if known? [ ] Chronic Diastolic Heart Failure [ ] Acute on Chronic Diastolic Heart Failure [ ] Chronic Systolic & Diastolic Heart Failure [ ] Acute on Chronic Heart Failure Systolic & Diastolic Heart Failure [ ] Other, please specify [ ] Unable to determine (Template Last Revised: November 2020) Pt has pulmonary HTN and afib MTDD
[2022-08-14 16:49] LABS: Glucose,Whole Blood 105 mg/dL (70-110)
--- NOTE | 2022-08-14 16:57 | US ---
EXAMINATION TYPE: US paracentesis abd w/image DATE OF EXAM: 08/14/2022 COMPARISON: NONE HISTORY: Ascites. PROCEDURE: Maximal barrier technique was utilized. The skin overlying a suitable pocket of fluid was localized with ultrasound and the overlying skin was prepped and draped. Ultrasound was utilized with sterile technique. Lidocaine was used for local anesthesia and a skin jose made with a scalpel. Catheter was advanced under direct ultrasound guidance into a suitable pocket of fluid and approximately 4.3 liter s of yellow fluid were removed. Catheter was withdrawn and hemostasis achieved. There is no immedia te complication; the patient is discharged in stable condition. IMPRESSION: STATUS POST ULTRASOUND GUIDED PARACENTESIS FOR PALLIATION OF ASCITES. THIS PROCEDURE WA S PERFORMED BY THE UNDERSIGNED. Fluid sent for laboratory analysis.
[2022-08-14 18:13] LABS: Glucose,Whole Blood 92 mg/dL (70-110)
[2022-08-14 20:11] LABS: Glucose,Whole Blood 65 mg/dL (70-110)
[2022-08-14] MEDS: DEXTROSE 50% SYRINGE 50 ML IVP PRN ×2 (20:15→22:49)
[2022-08-14 20:34] LABS: Glucose,Whole Blood 111 mg/dL (70-110)
[2022-08-14] MEDS ORDERED: AMIODARONE 450 MG in DEXTROSE 5% IN WATER 250 ML IV SCH ×2 (20:45)
[2022-08-14 22:38] LABS: Glucose,Whole Blood 69 mg/dL (70-110)
[2022-08-14 23:24] LABS: Glucose,Whole Blood 106 mg/dL (70-110)
--- NOTE | 2022-08-14 23:42 | P.PN ---
Subjective This is a pleasant 67-soaked female with past medical history of alcohol liver disease and cirrhosis, coronary artery disease gastroesophageal reflux disease, chronic heart failure, fibromyalgia, hyperlipidemia, diabetes mellitus on insulin, pancytopenia, seizure history of TIPS and EGD with banded esophageal varices. paroxysmal atrial fibrillation not on anticoagulation secondary to liver disease on the waiting list for liver transplant on [facility] in [place] Presents with dyspnea and hypoxia Patient currently in intubated and could not provide information so it was obtained from the medical records and staff. No family at bedside. Patient was hypotensive blood pressure 93/78, currently her blood pressure improved slightly 102/44.. She is saturating 98%. She is tachypneic with a breathing rate around 28. Patient is afebrile. showing leukocytosis of 15.1, at baseline she has leukopenia with WBC 2-3. Hemoglobin 7.8.Platelet count 91 INR 1.6. PH 7.2, pCO2 of 34. PO2 of 195. Lactic acid is 4.6. Creatinine 2.1, baseline 1.5-1.7, chronic kidney disease stage III Magnesium 2.4 Bilirubin elevated at 2.8, AST slightly elevated at 42 while ALT is normal at 24. Ammonia is 53 ProBNP is elevated 09812. Serum alcohol Less than 10 Covid is not detected as well as influenza virus is Chest x-ray: There are multiple focal large ill-defined opacity throughout the entire of the right lung and involved the left suprahilar and left infra-hilar lung the pattern consistent with a clinical diagnosis of multifocal bronchopneumonia with associated right pleural effusion per the radiologist An emergency room patient received a pleasant somewhat, IV Solu-Medrol 1, morphine, Ativan and she got intubated. Also she received Rocephin 1. She was also receiving normal saline at 100 mL per hour with pulmonary team consulted Peterson catheter in place with dark yellow urine about 5 mL. 08/12/2022 Patient is still intubated and sedated in the ICU with pulmonary/critical care team followed closely. She has evidence of septic shock and 2 bilateral pneumonia and currently she is on levophed at 0.08 , with oliguric renal failure and plan for the patient to undergo hemodialysis however there is slight improvement in urine output compare d to yesterday. Lasix was stopped. Ultrasound showed no hydronephrosis but there is evidence of ascites. Also patient looks her problem cardiac as there is moderate to severe right ventricular dilatation with severe pulmonary hypertension and moderate mitral regurgitation and moderate to severe tricuspid regurgitation. Patient also with fluid overload with ascites and leg edema and chest x-ray showed CHF versus ARDS versus pneumonia. Levemir increased to 20 units with NovoLog 5 units every 6 hours with close monitoring of glucose. She has thrombocytopenia, anemia, mild coagulopathy. Creatinine 2.4. She is tachypneic and tachycardic and she was placed on amiodarone drip 08/14/2022 Patient remains in the ICU in critical condition, intubated and sedated. She still needs high FiO2 of 50% and PEEP of 12. Also she required her dose of pressors of levophed at 0.12. She underwent paracentesis with 4.3 L of fluid removed She remains on ceftriaxone and Ativan, and amiodarone Her glucose was on the low side so we lowered the dose of his Levemir down to 30 units twice a day with close monitoring of glucose Several consultants on the case Prognosis is poor Objective - Vital Signs Vital signs: Vital Signs Temp 97.6 F 08/14/22 08:00 Pulse 66 08/14/22 12:00 Resp 28 H 08/14/22 12:00 BP 96/54 08/14/22 03:00 Pulse Ox 99 08/14/22 12:00 FiO2 50 08/14/22 12:00 Intake & Output 08/13/22 08/14/22 08/14/22 18:59 06:59 18:59 Intake Total 2887.157 5127.149 338.003 Output Total 190 115 100 Balance 569.753 8241.149 238.003 Weight 95.1 kg 95.1 kg Intake: IV 708.4 452 80 0.9 pressure bag 72 72 30 0.9ns 70 130 50 Amiodarone 0.5mg dose 66.4 Magnesium Sulfate-D5w Pmx 200 1 gm In Dextrose/Water 1 100ml.bag @ 100 mls/hr IVPB Q1H [facility] Rx#: [id number] Rocephin 50 Sodium Bicarbonate 500 Intake, IV Titration 207.025 572.149 258.003 Amount Norepinephrine 4 mg In 406.313 180.464 Sodium Chloride 0.9% 250 ml @ 0.02 MCG/KG/MIN 6. 394 mls/hr IV .Q24H [facility] Rx#:[id number] propofoL 1,000 mg In 196.101 165.836 77.539 Empty Bag 1 bag @ 15 MCG/ KG/MIN 7.552 mls/hr IV . [id number] [facility] Rx#:[id number] Tube Feeding 99 60 Lipid 6 0.9 pressure bag 6 Other 30 60 Output: Urine 190 115 100 Other: Voiding Method Indwelling Catheter Indwelling Catheter ABP, PAP, CO, CI - Last Documented Arterial Blood Pressure 122/48 - Exam -GENERAL: The patient is intubated and sedated HEENT: Pupils are round and equally reacting to light. EOMI. No scleral icterus. No conjunctival pallor. Normocephalic, atraumatic. No pharyngeal erythema. No thyromegaly. CARDIOVASCULAR: S1 and S2 present. No murmurs, rubs, or gallops. -PULMONARY: Chest is clear to auscultation, no bilateral crepitation -ABDOMEN: Soft, nontender, mild distention, normoactive bowel sounds. No palpable organomegaly. MUSCULOSKELETAL: No joint swelling or deformity. EXTREMITIES: No cyanosis, clubbing, or pedal edema. NEUROLOGICAL: Gross neurological examination did not reveal any focal deficits. SKIN: No rashes. no petechiae. - Labs CBC & Chem 7: 08/14/22 06:00 08/14/22 06:00 Labs: Abnormal Lab Results - Last 24 Hours (Table) 08/13/22 08/13/22 08/13/22 Range/Units 09:16 18:07 21:39 WBC (3.8-10.6) k/uL RBC (3.80-5.40) m/uL Hgb (11.4-16.0) gm/dL Hct (34.0-46.0) % RDW (11.5-15.5) % Plt Count (150-450) k/uL Neutrophils # (1.3-7.7) k/uL Lymphocytes # (1.0-4.8) k/uL PT (9.0-12.0) sec INR (<1.2) ABG pO2 144 H (83-108) mmHg ABG Total CO2 25 H (19-24) mmol/L ABG O2 Saturation 100.0 H (94-97) % Sodium (137-145) mmol/L Potassium (3.5-5.1) mmol/L BUN (7-17) mg/dL Creatinine (0.52-1.04) mg/dL Glucose (74-99) mg/dL POC Glucose (mg/dL) 247 H 245 H (70-110) mg/dL Calcium (8.4-10.2) mg/dL 08/13/22 08/13/22 08/14/22 Range/Units 21:40 23:53 04:26 WBC (3.8-10.6) k/uL RBC (3.80-5.40) m/uL Hgb (11.4-16.0) gm/dL Hct (34.0-46.0) % RDW (11.5-15.5) % Plt Count (150-450) k/uL Neutrophils # (1.3-7.7) k/uL Lymphocytes # (1.0-4.8) k/uL PT (9.0-12.0) sec INR (<1.2) ABG pO2 (83-108) mmHg ABG Total CO2 (19-24) mmol/L ABG O2 Saturation (94-97) % Sodium 134 L (137-145) mmol/L Potassium 3.1 L (3.5-5.1) mmol/L BUN 36 H (7-17) mg/dL Creatinine 1.61 H (0.52-1.04) mg/dL Glucose 227 H (74-99) mg/dL POC Glucose (mg/dL) 223 H 210 H (70-110) mg/dL Calcium 7.4 L (8.4-10.2) mg/dL 08/14/22 08/14/22 08/14/22 Range/Units 05:56 06:00 06:00 WBC 12.7 H (3.8-10.6) k/uL RBC 3.19 L (3.80-5.40) m/uL Hgb 8.8 L (11.4-16.0) gm/dL Hct 28.4 L (34.0-46.0) % RDW 16.8 H (11.5-15.5) % Plt Count 28 L (150-450) k/uL Neutrophils # 11.4 H (1.3-7.7) k/uL Lymphocytes # 0.5 L (1.0-4.8) k/uL PT (9.0-12.0) sec INR (<1.2) ABG pO2 (83-108) mmHg ABG Total CO2 (19-24) mmol/L ABG O2 Saturation 99.1 H (94-97) % Sodium 135 L (137-145) mmol/L Potassium 3.3 L (3.5-5.1) mmol/L BUN 38 H (7-17) mg/dL Creatinine 1.70 H (0.52-1.04) mg/dL Glucose 191 H (74-99) mg/dL POC Glucose (mg/dL) (70-110) mg/dL Calcium 7.5 L (8.4-10.2) mg/dL 08/14/22 08/14/22 08/14/22 Range/Units 06:19 09:15 11:39 WBC (3.8-10.6) k/uL RBC (3.80-5.40) m/uL Hgb (11.4-16.0) gm/dL Hct (34.0-46.0) % RDW (11.5-15.5) % Plt Count (150-450) k/uL Neutrophils # (1.3-7.7) k/uL Lymphocytes # (1.0-4.8) k/uL PT 15.6 H (9.0-12.0) sec INR 1.5 H (<1.2) ABG pO2 (83-108) mmHg ABG Total CO2 (19-24) mmol/L ABG O2 Saturation (94-97) % Sodium (137-145) mmol/L Potassium (3.5-5.1) mmol/L BUN (7-17) mg/dL Creatinine (0.52-1.04) mg/dL Glucose (74-99) mg/dL POC Glucose (mg/dL) 202 H 141 H (70-110) mg/dL Calcium (8.4-10.2) mg/dL Microbiology - Last 24 Hours (Table) 08/10/22 21:30 Blood Culture - Preliminary Blood No Growth after 72 hours 08/10/22 21:13 Blood Culture Gram Stain - Final Blood Blood Culture - Final Streptococcus pneumoniae Assessment and Plan Assessment: Acute Bilateral broncho-pneumonia Acute CHF exacerbation, with ejection fraction 55-60% Possible septic shock Acute hypoxic respiratory failure, required intubation and mechanical ventilation Acute kidney injury, with low urine output Metabolic acidosis Elevated lactic acid Metabolic and hepatic encephalopathy possible ARDS versus CHF [id number] mitral regurgitation and moderate to severe tricuspid regurgitation with severely dilated right ventricle and severe pulmonary hypertension Elevated bilirubin Diabetes mellitus on insulin, nonalcoholic liver disease and liver cirrhosis History of ascites status post paracentesis Chronic heart failure History of fibromyalgia Hyperlipidemia and history of pancytopenia History of seizure history of EGD with banded esophageal varices History of chronic atrial fibrillation not on anticoagulation because of her liver disease [id number] mitral regurgitation Plan: This is a pleasant 58 minus old female presents with hypoxia Continue with bronchodilator Monitor platelets hemoglobin and signs of bleeding Continue with antibiotic ceftriaxone and IV vancomycin follow-up culture results Continue with rifaximin and lactulose There is no GI coverage in this facility Continue with amiodarone 200 mg twice a day Continue with Levemir 34 units daily and NovoLog 10 units every 6 hours She is on sodium bicarb 100 mL per hour per pulmonary and nephrology's recommend ation Follow up creatinine, check urinalysis. Patient has low urine output. We will monitor urine output and consider nephrology consult. Labs and medication were reviewed.. Continue same treatment. Continue with symptomatic treatment. Resume home medication. Monitor lytes and vitals. DVT and GI prophylaxis. Further recommendations as per clinical course of the patient DVT prophylaxis: no Subcutaneous heparin for thrombocytopenia GI Prophylaxis: Ppi Prognosis is guarded
[2022-08-15] MEDS: NOREPINEPHRINE 4 MG in SODIUM CHLORIDE 0.9% 250 ML IV SCH ×3 (00:06→08:18)
[2022-08-15] MEDS: INSULIN ASPART (NovoLOG) 100 UNIT/ML VIAL SQ SCH ×6 (00:08→16:58)
[2022-08-15 00:10] LABS: Glucose,Whole Blood 88 mg/dL (70-110)
[2022-08-15 01:43] LABS: Glucose,Whole Blood 78 mg/dL (70-110)
[2022-08-15 03:54] LABS: Glucose,Whole Blood 47 mg/dL (70-110)
[2022-08-15] MEDS: DEXTROSE 50% SYRINGE 50 ML IVP PRN ×2 (03:59→06:05)
[2022-08-15 04:17] LABS: Glucose,Whole Blood 96 mg/dL (70-110)
[2022-08-15 05:08] LABS: Glucose,Whole Blood 93 mg/dL (70-110)
[2022-08-15] MEDS ORDERED: DEXTROSE 5% IN WATER 1,000 ML IV SCH (05:15)
[2022-08-15 05:22] LABS: Albumin 2.2 g/dL (3.5-5.0); Calcium 7.6 mg/dL (8.4-10.2); Potassium 3.8 mmol/L (3.5-5.1); Total Bilirubin 3.4 mg/dL (0.2-1.3); Total Protein 4.6 g/dL (6.3-8.2)
[2022-08-15 05:37] LABS: ABG Base Excess 1.8 mmol/L; ABG HCO3 26 mmol/L (21-25); ABG Oxygen Saturation 99.8 % (94-97); ABG PCO2 39 mmHg (35-45); ABG PH 7.43 (7.35-7.45); ABG PO2 118 mmHg (83-108); ABG TCO2 27 mmol/L (19-24)
[2022-08-15 06:01] LABS: Anisocytosis Slight; Basophils % (A) 0 %; Eosinophils # (A) 0.5 k/uL (0-0.7); Eosinophils % (A) 4 %; HCT 28.3 % (34.0-46.0); HGB 8.7 gm/dL (11.4-16.0); Hypochromasia Marked; Lymphocytes # (A) 0.5 k/uL (1.0-4.8); Lymphocytes % (A) 4 %; MCH 27.4 pg (25.0-35.0); MCHC 30.8 g/dL (31.0-37.0); MCV 88.7 fL (80.0-100.0); Mean Platelet Volume 16.4; Monocytes # (A) 0.6 k/uL (0-1.0); Monocytes % (A) 5 %; Neutrophils # (A) 11.2 k/uL (1.3-7.7); Neutrophils % (A) 86 %; Poikilocytosis Marked; RBC 3.19 m/uL (3.80-5.40); RDW 17.1 % (11.5-15.5); WBC 13.1 k/uL (3.8-10.6)
[2022-08-15 06:02] LABS: Glucose,Whole Blood 58 mg/dL (70-110)
[2022-08-15 06:22] LABS: Glucose,Whole Blood 96 mg/dL (70-110)
[2022-08-15 06:24] LABS: Platelet Count 23 k/uL (150-450)
[2022-08-15 07:59] LABS: Glucose,Whole Blood 114 mg/dL (70-110)
[2022-08-15] MEDS: AMIODARONE 200 MG TAB PO SCH ×2 (08:37→20:35)
[2022-08-15] MEDS: LACTULOSE 20 GM/30 ML CUP PO SCH (08:37)
[2022-08-15] MEDS: CHLORHEXIDINE GLUCONATE 15 ML CUP MUCOUS MEM SCH ×2 (08:37→20:35)
[2022-08-15] MEDS: PANTOPRAZOLE 40 MG/10 ML VIAL IV SCH (08:37)
[2022-08-15] MEDS: RIFAXIMIN 550 MG TABLET PO SCH ×2 (08:38→21:00)
[2022-08-15] MEDS: METOPROLOL TARTRATE 25 MG TAB PO SCH ×2 (08:38→20:35)
[2022-08-15] MEDS ORDERED: INSULIN DETEMIR (LEVEMIR) 100 UNIT/ML SYR SQ SCH (09:00)
--- NOTE | 2022-08-15 09:01 | XR ---
EXAMINATION TYPE: XR chest 1V portable DATE OF EXAM: 08/15/2022 COMPARISON: 08/14/2022 HISTORY: Tube placement TECHNIQUE: Single frontal view of the chest is obtained. FINDINGS: A bilateral infiltrate and pleural effusion is stable. Stable. ET tube, NG tube and centra l line stable. Atherosclerotic change aorta. Heart size normal. Right-sided humeral neck fracture not ed. IMPRESSION: 1. Correlate for diffuse pneumonia or CHF. 2. Right humeral neck fracture.
[2022-08-15 09:11] LABS: Glucose,Whole Blood 100 mg/dL (70-110)
[2022-08-15 11:01] VITALS: BP 136/46
--- NOTE | 2022-08-15 11:08 | P.PN ---
Subjective Patient is a 67-year-old female seen for follow-up for acute kidney injury secondary to ATN from septic shock and anemia. Urine output has been 5-20 mL an hour. Patient was started on dialysis on 08/12/2022 Patient remains significantly volume overloaded. Currently on levo fed at a stable dose with slight increase during dialysis Amiodarone has been switched to by mouth Intra-abdominal pressure was 16 Started on D5W at 50 mL an hour as blood sugar had been low Patient also had paracentesis with about 6 L of fluid removed thus far. Objective - Vital Signs Vital signs: Vital Signs Temp 97.6 F 08/15/22 11:00 Pulse 56 L 08/15/22 11:00 Resp 21 08/15/22 11:00 BP 136/46 08/15/22 11:00 Pulse Ox 98 08/15/22 10:00 FiO2 40 08/15/22 09:00 Intake & Output 08/14/22 08/15/22 08/15/22 18:59 06:59 18:59 Intake Total 9028.324 1277.329 872 Output Total 4535 2175 1940 Balance -3234.358 -993.671 -1068 Weight 95.1 kg 88.7 kg Intake: IV 176 305 198 0.9 pressure bag 66 75 18 0.9ns 110 130 30 Dextrose 5% in Water 1, 100 150 000 ml @ 50 mls/hr IV . Q20H [facility] Rx#:[id number] Intake, IV Titration 785.642 516.329 254 Amount Amiodarone 450 mg In 250 Dextrose 5% in Water 250 ml @ 0.5 MG/MIN 16.667 mls/hr IV .Q15H [facility] Rx#: [id number] Amiodarone 450 mg In 20.834 Dextrose 5% in Water 250 ml @ 0.5 MG/MIN 16.667 mls/hr IV .Q15H [facility] Rx#: [id number] Norepinephrine 4 mg In 388.495 428.529 254 Sodium Chloride 0.9% 250 ml @ 0.02 MCG/KG/MIN 6. 394 mls/hr IV .Q24H [facility] Rx#:[id number] propofoL 1,000 mg In 147.147 66.966 Empty Bag 1 bag @ 15 MCG/ KG/MIN 7.552 mls/hr IV . [id number] COUNTS INCLUDE 234 BEDS AT THE [facility] Rx#:[id number] Tube Feeding 40 270 90 Blood Product 299 Platelet Pheresis Pas 299 Psoralen Unit [id number] Hemodialysis 300 Other 90 30 Output: Drainage 4300 2000 Left Abdomen 4300 2000 Urine 235 175 40 Hemodialysis 1900 Other: Voiding Method Indwelling Catheter Indwelling Catheter Indwelling Catheter ABP, PAP, CO, CI - Last Documented Arterial Blood Pressure 117/34 - Exam Patient is sedated and intubated Examination of the heart S1 and S2 Examination lungs bilateral breath sounds are heard Abdomen is soft distended with abdominal wall edema Examination of the lower extremities shows edema 2-3+ bilaterally PAINT GRINDER exam cannot be performed - Labs CBC & Chem 7: 08/15/22 04:50 08/15/22 04:50 Labs: Abnormal Lab Results - Last 24 Hours (Table) 08/11/22 08/11/22 08/14/22 Range/Units 06:50 12:20 11:39 WBC (3.8-10.6) k/uL RBC (3.80-5.40) m/uL Hgb (11.4-16.0) gm/dL Hct (34.0-46.0) % MCHC (31.0-37.0) g/dL RDW (11.5-15.5) % Plt Count (150-450) k/uL Neutrophils # (1.3-7.7) k/uL Lymphocytes # (1.0-4.8) k/uL ABG pO2 (83-108) mmHg ABG HCO3 (21-25) mmol/L ABG Total CO2 (19-24) mmol/L ABG O2 Saturation (94-97) % Sodium (137-145) mmol/L BUN (7-17) mg/dL Creatinine (0.52-1.04) mg/dL POC Glucose (mg/dL) 141 H (70-110) mg/dL Calcium (8.4-10.2) mg/dL Total Bilirubin (0.2-1.3) mg/dL AST (14-36) U/L Alkaline Phosphatase (38-126) U/L Total Protein (6.3-8.2) g/dL Albumin (3.5-5.0) g/dL Viral Test See Below A Crossmatch See Detail 08/14/22 08/14/22 08/14/22 Range/Units 20:09 20:33 22:36 WBC (3.8-10.6) k/uL RBC (3.80-5.40) m/uL Hgb (11.4-16.0) gm/dL Hct (34.0-46.0) % MCHC (31.0-37.0) g/dL RDW (11.5-15.5) % Plt Count (150-450) k/uL Neutrophils # (1.3-7.7) k/uL Lymphocytes # (1.0-4.8) k/uL ABG pO2 (83-108) mmHg ABG HCO3 (21-25) mmol/L ABG Total CO2 (19-24) mmol/L ABG O2 Saturation (94-97) % Sodium (137-145) mmol/L BUN (7-17) mg/dL Creatinine (0.52-1.04) mg/dL POC Glucose (mg/dL) 65 L 111 H 69 L (70-110) mg/dL Calcium (8.4-10.2) mg/dL Total Bilirubin (0.2-1.3) mg/dL AST (14-36) U/L Alkaline Phosphatase (38-126) U/L Total Protein (6.3-8.2) g/dL Albumin (3.5-5.0) g/dL Viral Test Crossmatch 08/15/22 08/15/22 08/15/22 Range/Units 03:51 04:50 04:50 WBC 13.1 H (3.8-10.6) k/uL RBC 3.19 L (3.80-5.40) m/uL Hgb 8.7 L (11.4-16.0) gm/dL Hct 28.3 L (34.0-46.0) % MCHC 30.8 L (31.0-37.0) g/dL RDW 17.1 H (11.5-15.5) % Plt Count 23 L (150-450) k/uL Neutrophils # 11.2 H (1.3-7.7) k/uL Lymphocytes # 0.5 L (1.0-4.8) k/uL ABG pO2 (83-108) mmHg ABG HCO3 (21-25) mmol/L ABG Total CO2 (19-24) mmol/L ABG O2 Saturation (94-97) % Sodium 134 L (137-145) mmol/L BUN 28 H (7-17) mg/dL Creatinine 1.28 H (0.52-1.04) mg/dL POC Glucose (mg/dL) 47 L (70-110) mg/dL Calcium 7.6 L (8.4-10.2) mg/dL Total Bilirubin 3.4 H (0.2-1.3) mg/dL AST 49 H (14-36) U/L Alkaline Phosphatase 167 H (38-126) U/L Total Protein 4.6 L (6.3-8.2) g/dL Albumin 2.2 L (3.5-5.0) g/dL Viral Test Crossmatch 08/15/22 08/15/22 08/15/22 Range/Units 05:33 06:00 07:56 WBC (3.8-10.6) k/uL RBC (3.80-5.40) m/uL Hgb (11.4-16.0) gm/dL Hct (34.0-46.0) % MCHC (31.0-37.0) g/dL RDW (11.5-15.5) % Plt Count (150-450) k/uL Neutrophils # (1.3-7.7) k/uL Lymphocytes # (1.0-4.8) k/uL ABG pO2 118 H (83-108) mmHg ABG HCO3 26 H (21-25) mmol/L ABG Total CO2 27 H (19-24) mmol/L ABG O2 Saturation 99.8 H (94-97) % Sodium (137-145) mmol/L BUN (7-17) mg/dL Creatinine (0.52-1.04) mg/dL POC Glucose (mg/dL) 58 L 114 H (70-110) mg/dL Calcium (8.4-10.2) mg/dL Total Bilirubin (0.2-1.3) mg/dL AST (14-36) U/L Alkaline Phosphatase (38-126) U/L Total Protein (6.3-8.2) g/dL Albumin (3.5-5.0) g/dL Viral Test Crossmatch Microbiology - Last 24 Hours (Table) 08/14/22 15:02 Gram Stain - Preliminary Ascites Fluid Body Fluid Culture - Preliminary 08/10/22 21:30 Blood Culture - Preliminary Blood No Growth after 96 hours 08/14/22 15:02 Anaerobic Culture - Preliminary Ascites Fluid Assessment and Plan Assessment: 1. Acute kidney injury secondary to ATN secondary to septic shock and anemia. Oliguric. Started on dialysis on 08/12/2022 2. Septic shock secondary to pneumonia on antibiotics and Levophed. 3. Metabolic acidosis secondary to acute kidney injury. 4. Volume overload.edema++ and CHF on CXR 5. Nonalcoholic liver cirrhosis. 6. Acute blood loss anemia. No active bleeding noted. Status post 2 units packed RBCs. 7. Acute hypoxic respiratory failure, currently on the vent. Plan: Maintain daily dialysis treatments for volume overload Continue antibiotics DC D5W and blood sugars are better.
--- NOTE | 2022-08-15 11:10 | P.PN ---
Subjective Progress Note Date: 08/15/22 Principal diagnosis: Acute hypoxic respiratory failure secondary to acute streptococcal pneumonia, sepsis and septic shock. This is a 67-year-old female patient with known history of nonalcoholic liver failure/cirrhosis. 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 The patient has been seen by the GI service at the [facility]. She underwent a TIPS procedures as the patient was requiring multiple episodes of paracentesis over the years. The patient has had previous episodes of massive GI bleed and this was secondary to portal hypertension and esophageal varices. Taking care of this patient in the past and the intensive care unit. My last encounter with her was in June 2021 and backbench I treated with shortness of breath and she had large bilateral pleural effusion and atelectasis and she was hypoxic and she was managed accordingly. The patient also has a long list of comorbid conditions Primus related to her liver cirrhosis. She is diabetic and she has known history of coronary artery disease. The patient came in yesterday to the emergency department with acute respiratory distress. This started a few days prior to her admission. She was confused and not a whole lot of history was obtained from her in the emergency. She was reporting no fever or chills. No aspiration. The patient was in significant distress. They tried on BiPAP initially and she failed and subsequently she got intubated and placed on a mechanical ventilator. Post intubation chest x-ray showed extensive bilateral lung consolidations more so on the right. A repeat chest x-ray was on this morning and it is humid and G-tube are again seen and the patient has extensive bilateral airspace disease seen. This morning, the patient is sedated with propofol running at 20 mcg/kg/m. She is on assist control of 28 with a tidal volume of 450 and FiO2 of 90% with a PEEP of 5. Her blood work from this morning shows a white cell count of 6.7 which dropped from 15.1. Hemoglobin is down to 6.2 from a baseline of 7.8 and a platelet count was 91,000 yesterday. Her INR today is 1.7 with a PT of 17.8. The patient also has a component of and I get metabolic acidosis with a gap of 16 at the time of admission, current serum bicarbs of 14 with a gap of 12 and sodium level of 136. Potassium level is at 4.7. Her lactic acid initially was 4.6-1.9. Her Calcium Is at 7.7. Bilirubin Is at 1. LFTs Are Normal. Serum Albumin Is at 2.7. Covid 19 Testing Was Negative. Influenza Screen Was Negative. Alcohol Level Was Negative. Most Recent Blood Gas Shows a pH of 7.34 with a PCO2 of 25 and PO2 of 87. She Was Borderline Hypotensive. She Was Given 2 Doses of Albumin Yesterday 25%. She Was Also Given a Bolus of Saline in the Emergency Department. The Bolus of Saline was in order of 500 mL. Currently she is on a bicarbonate infusion running at a rate of 100 mL an hour. Urine output is extremely low and order a fasting cc on an hourly basis. Antibiotic coverage was also provided and the patient was started on IV Zosyn. She is on pressors and this was started yesterday and norepinephrine is O- 0.06 mcg/kg/m. 08/13/2022, the patient is being seen for a follow-up. She is in septic shock secondary to pneumococcal pneumonia and multisystem organ failure. The patient this morning remains sedated and she is currently on propofol running at 20 mcg/kg/m. She was she is well rested and she is synchronous with the mechanical ventilator. She was doing well on the mechanical ventilator. However earlier this morning, she had an episode of desaturation. Repeat chest x-rays were done and the findings were essentially consistent with bilateral pneumonia. No evidence of any pneumothorax. No evidence of any interval worsening. Based on that, the patient was placed on a PEEP of 16 to improve her oxygenation and FiO2 was kept at 70% and she is currently at the rate of 28 with a tidal volume of 375. Those changes were done as the patient was desaturating and I had to lower the tidal volume and increase the PEEP. Ultimately, this turned out to be probably a mucous plug. After repeated suctioning, she improved. Oxygenation also improved and the pO2 is up to when necessary 17. Repeat blood gas these to be done to reevaluate her oxygenation. The pH is 7.41 with a pCO2 of 35. I dropped the PEEP by 2 and currently she is on a PEEP of 14. Peak airway pressures around 36. The patient otherwise is still septic and hypotensive. In terms of IV fluids, she is receiving bicarb infusion at that eighth of 100 mL an hour. She underwent hemodialysis yesterday as the patient was having significant amount of fluid overload. Dialysis catheter was inserted yesterday and he right groin. First session of hemodialysis established with a total of 1000 mL of ultrafiltration. She did convert into normal sinus rhythm and she is out of atrial fibrillation for now. However, she is still requiring pressors and norepinephrine is running at a rate of 0.04 mcg/kg/m. I'm going to switch this patient to oral amiodarone. That echocardiogram showed a preserved LV function. In terms of labs, the white cycles of 6.1 with a hemoglobin of 8.1 and a platelet count that dropped down to 23. The patient was a sodium of 133, potassium of 3.4, bicarb of 20, BUN of 43 with a creatinine of 1.89. Stool for C. diff has been negative. The patient remains on a combination of Rocephin and vancomycin. The vancomycin random level was 22. The patient does she is also on NovoLog units 4 times a day and the sliding scale coverage. We will need to monitor the blood sugar control and use a drip if needed. CVP is currently at 15. not have STEPHON is on the vancomycin yet. Enteral feeding is accomplished by vital HP at the rate of 39 mL an hour. He is able to tolerate the enteral feeding without having any major difficulties. She is on Levemir insulin and this was started today as the patient's blood sugar was considerably elevated. CVP at 15 Reevaluated today on 08/14/22, patient remains in the ICU, intubated and mechanically ventilated. Her ventilator settings are assist control rate of 20 06/17/1977 FiO2 50% and PEEP of 12. ABG showed a pO2 of 106 pCO2 38 pH of 7.40, hence no changes were made in her present ventilator settings. Patient remains on multiple drips including amiodarone at 0.5 mg/m she is also on norepinephrine at 0.14 mcg/kg/m propofol at 30 mcg/kg/m IV fluid at KVO. Blood cultures were positive for Streptococcus pneumonia. Patient remains on Rocephin. Yesterday patient had hemodialysis, and 200 mL only were taken off. Intermittently the patient goes in A. fib and RVR, remains on amiodarone, cardiology was consulted on this patient today. Patient received a unit of packed RBCs on 08/11 Hemoglobin today is 8.8. Hemoglobin was as low as 6.2 on 08/11. No evidence of active bleeding. Patient is clearly developing multisystem organ failure. And she is nowhere near any weaning or extubation at this point, I believe as a matter of fact her condition is extremely poor, and prognosis is extremely poor. Her expected mortality is over 95% at this point. Clearly the patient has a multisystem organ failure. Today I recommended checking the pressures of the urinary bladder to make sure that the patient does not have abdominal compartment syndrome, the pressures came back to be reasonable/16 patient had poor tolerance to enteral feedings. Remains on rifaximin and she is also on lactulose for elevated ammonia level. Patient clearly has a hepatic encephalopathy. INR today is 1.5. Platelets remained low at 28,000, I may consult interventional radiology for paracentesis/ultrasound-guided. BUN is 38 creatinine 1.70 bicarb is 20 to today. Reevaluated today on 08/15/22, patient remains in the ICU, intubated and mechanically ventilated. She is on assist control rate of 28 tidal volume of 375 FiO2 40% and PEEP of 5. ABG showed a pO2 of 118 pCO2 39 pH of 7.43, rate was cut down to 26 and her PEEP cut down to 10 flow rate was increased to 70 L/m. FiO2 remains at 40%. Patient is now off amiodarone as of 10 PM last night since she was getting bradycardic. She remains on propofol at 10 mcg/kg/m, D5W at 50 mL/h, norepinephrine 0.2 mcg/kg/m, she is also on hemodialysis, and yesterday she had a paracentesis weren't 4.2 L of fluid was drained continues to have drainage from the paracentesis site into an ostomy bag, and she must have drained about 2 L since yesterday. Chest x-ray is showing improvement in her interstitial edema. Abdomen seems to be less distended and less edematous, there is definite the left sinusitis, continues to have swollen and edematous lower extremities. Patient remains on enteral feeding using vital at bedtime at 50 mL per hour. Labs today showed WBC of 13.1 hemoglobin 8.7. Electrolytes are normal renal profile showed a BUN of 28 creatinine 1.28. Hepatitis screen has been negative. Medications-yeung patient remains on amiodarone 200 mg by mouth twice a day, she is also on Rocephin 2 g every 24 hours, Peridex, insulin subcu, DuoNeb updrafts, lactulose, metoprolol, 25 twice a day, norepinephrine, Protonix, propofol, and rifaximin. Ammonia level today is 12. This was 53 on 08/10/2022 Objective - Vital Signs Vital signs: Vital Signs Temp 97.9 F 08/15/22 08:00 Pulse 56 L 08/15/22 10:00 Resp 31 H 08/15/22 10:00 BP 116/45 08/14/22 16:35 Pulse Ox 98 08/15/22 10:00 FiO2 40 08/15/22 09:00 Intake & Output 08/14/22 08/15/22 08/15/22 18:59 06:59 18:59 Intake Total 8826.399 5700.329 572 Output Total 4535 2175 40 Balance -3234.358 -993.671 532 Weight 95.1 kg 88.7 kg Intake: IV 176 305 198 0.9 pressure bag 66 75 18 0.9ns 110 130 30 Dextrose 5% in Water 1, 100 150 000 ml @ 50 mls/hr IV . Q20H [facility]ARIO Rx#:[id number] Intake, IV Titration 785.642 516.329 254 Amount Amiodarone 450 mg In 250 Dextrose 5% in Water 250 ml @ 0.5 MG/MIN 16.667 mls/hr IV .Q15H [facility]ARIO Rx#: [id number] Amiodarone 450 mg In 20.834 Dextrose 5% in Water 250 ml @ 0.5 MG/MIN 16.667 mls/hr IV .Q15H [facility]ARIO Rx#: [id number] Norepinephrine 4 mg In 388.495 428.529 254 Sodium Chloride 0.9% 250 ml @ 0.02 MCG/KG/MIN 6. 394 mls/hr IV .Q24H [facility]ARIO Rx#:[id number] propofoL 1,000 mg In 147.147 66.966 Empty Bag 1 bag @ 15 MCG/ KG/MIN 7.552 mls/hr IV . [id number] [facility]IO Rx#:[id number] Tube Feeding 40 270 90 Blood Product 299 Platelet Pheresis Pas 299 Psoralen Unit [id number] Other 90 30 Output: Drainage 4300 2000 Left Abdomen 4300 2000 Urine 235 175 40 Other: Voiding Method Indwelling Catheter Indwelling Catheter Indwelling Catheter ABP, PAP, CO, CI - Last Documented Arterial Blood Pressure 117/34 - Exam Physical Exam: Revealed a 67-year-old female sedated, intubated, in no distress. Head: Atraumatic, normocephalic. Endotracheal tube and orogastric tube are in tact HEENT:[Neck is supple.] [No neck masses.] [No thyromegaly.] [No JVD.] Chest: [Scattered crackles at the bases, no wheezing. Symmetrical chest expansion. Cardiac Exam: [Normal S1 and S2, no S3 gallop, 2/6 systolic murmur thought the precordium. Abdomen: [Distended, nontender, less ascites compared to yesterday, ostomy bag is noted draining from the site of her last paracentesis. Extremities: [No clubbing, 3+ bipedal edema, no cyanosis.] Neurological Exam: Cannot assess, patient is sedated. Psychiatric: Could not assess. Skin: No rashes. - Labs CBC & Chem 7: 08/15/22 04:50 08/15/22 04:50 Labs: Abnormal Lab Results - Last 24 Hours (Table) 08/11/22 08/11/22 08/14/22 Range/Units 06:50 12:20 11:39 WBC (3.8-10.6) k/uL RBC (3.80-5.40) m/uL Hgb (11.4-16.0) gm/dL Hct (34.0-46.0) % MCHC (31.0-37.0) g/dL RDW (11.5-15.5) % Plt Count (150-450) k/uL Neutrophils # (1.3-7.7) k/uL Lymphocytes # (1.0-4.8) k/uL ABG pO2 (83-108) mmHg ABG HCO3 (21-25) mmol/L ABG Total CO2 (19-24) mmol/L ABG O2 Saturation (94-97) % Sodium (137-145) mmol/L BUN (7-17) mg/dL Creatinine (0.52-1.04) mg/dL POC Glucose (mg/dL) 141 H (70-110) mg/dL Calcium (8.4-10.2) mg/dL Total Bilirubin (0.2-1.3) mg/dL AST (14-36) U/L Alkaline Phosphatase (38-126) U/L Total Protein (6.3-8.2) g/dL Albumin (3.5-5.0) g/dL Viral Test See Below A Crossmatch See Detail 08/14/22 08/14/22 08/14/22 Range/Units 20:09 20:33 22:36 WBC (3.8-10.6) k/uL RBC (3.80-5.40) m/uL Hgb (11.4-16.0) gm/dL Hct (34.0-46.0) % MCHC (31.0-37.0) g/dL RDW (11.5-15.5) % Plt Count (150-450) k/uL Neutrophils # (1.3-7.7) k/uL Lymphocytes # (1.0-4.8) k/uL ABG pO2 (83-108) mmHg ABG HCO3 (21-25) mmol/L ABG Total CO2 (19-24) mmol/L ABG O2 Saturation (94-97) % Sodium (137-145) mmol/L BUN (7-17) mg/dL Creatinine (0.52-1.04) mg/dL POC Glucose (mg/dL) 65 L 111 H 69 L (70-110) mg/dL Calcium (8.4-10.2) mg/dL Total Bilirubin (0.2-1.3) mg/dL AST (14-36) U/L Alkaline Phosphatase (38-126) U/L Total Protein (6.3-8.2) g/dL Albumin (3.5-5.0) g/dL Viral Test Crossmatch 08/15/22 08/15/22 08/15/22 Range/Units 03:51 04:50 04:50 WBC 13.1 H (3.8-10.6) k/uL RBC 3.19 L (3.80-5.40) m/uL Hgb 8.7 L (11.4-16.0) gm/dL Hct 28.3 L (34.0-46.0) % MCHC 30.8 L (31.0-37.0) g/dL RDW 17.1 H (11.5-15.5) % Plt Count 23 L (150-450) k/uL Neutrophils # 11.2 H (1.3-7.7) k/uL Lymphocytes # 0.5 L (1.0-4.8) k/uL ABG pO2 (83-108) mmHg ABG HCO3 (21-25) mmol/L ABG Total CO2 (19-24) mmol/L ABG O2 Saturation (94-97) % Sodium 134 L (137-145) mmol/L BUN 28 H (7-17) mg/dL Creatinine 1.28 H (0.52-1.04) mg/dL POC Glucose (mg/dL) 47 L (70-110) mg/dL Calcium 7.6 L (8.4-10.2) mg/dL Total Bilirubin 3.4 H (0.2-1.3) mg/dL AST 49 H (14-36) U/L Alkaline Phosphatase 167 H (38-126) U/L Total Protein 4.6 L (6.3-8.2) g/dL Albumin 2.2 L (3.5-5.0) g/dL Viral Test Crossmatch 08/15/22 08/15/22 08/15/22 Range/Units 05:33 06:00 07:56 WBC (3.8-10.6) k/uL RBC (3.80-5.40) m/uL Hgb (11.4-16.0) gm/dL Hct (34.0-46.0) % MCHC (31.0-37.0) g/dL RDW (11.5-15.5) % Plt Count (150-450) k/uL Neutrophils # (1.3-7.7) k/uL Lymphocytes # (1.0-4.8) k/uL ABG pO2 118 H (83-108) mmHg ABG HCO3 26 H (21-25) mmol/L ABG Total CO2 27 H (19-24) mmol/L ABG O2 Saturation 99.8 H (94-97) % Sodium (137-145) mmol/L BUN (7-17) mg/dL Creatinine (0.52-1.04) mg/dL POC Glucose (mg/dL) 58 L 114 H (70-110) mg/dL Calcium (8.4-10.2) mg/dL Total Bilirubin (0.2-1.3) mg/dL AST (14-36) U/L Alkaline Phosphatase (38-126) U/L Total Protein (6.3-8.2) g/dL Albumin (3.5-5.0) g/dL Viral Test Crossmatch Microbiology - Last 24 Hours (Table) 08/14/22 15:02 Gram Stain - Preliminary Ascites Fluid Body Fluid Culture - Preliminary 08/10/22 21:30 Blood Culture - Preliminary Blood No Growth after 96 hours 08/14/22 15:02 Anaerobic Culture - Preliminary Ascites Fluid Assessment and Plan Assessment: Impression: Acute hypoxic respiratory failure secondary to acute streptococcal pneumonia infection and streptococcal bacteremia. Acute sepsis and septic shock. Hypotension secondary to sepsis and septic shock. Multisystem organ failure Acute kidney injury, patient is on hemodialysis Acute metabolic acidosis requiring bicarbonate initially secondary to acute r enal failure sepsis and septic shock. Acute on chronic anemia Acute metabolic encephalopathy Acute hepatic encephalopathy, ammonia is improving. Liver cirrhosis/ascites, history of TIPS for recurrent ascites. Hepatitis screen been negative Pancytopenia secondary to sepsis and liver failure as well as hypersplenism Portal hypertension and previous history of GI bleeding History of psoriasis and psoriatic arthritis History of pulmonary nodules Fibromyalgia History of diabetes, patient had insulin pump Coronary artery disease Severe pulmonary hypertension, possible hepatopulmonary syndrome New onset atrial fibrillation with RVR. Status post paracentesis and 4.2 L of fluid were removed from her abdominal cavity. Recommendation: Continue ventilatory support, assist control rate of 26, tidal volume 375, FiO2 40%, and PEEP down to 10 Continue antibiotics for streptococcal pneumonia bacteremia Continue hemodialysis/ultrafiltration nephrology Laboratory studies on the ascites fluid are pending. Gram stain is negative Continue amiodarone, now given orally. Continue norepinephrine and titrate accordingly Continue antibiotics Continue enteral feeding but slowly and hold if the patient develops residual. Or vomiting Continue lactulose and rifaximin for elevated ammonia level and hepatic e ncephalopathy, will adjust the dose since the ammonia level is normal Based on the above, the overall picture is extremely poor, Family would have to be approached regarding CODE STATUS, I believe mortalities over 90% at this point. Prognosis is extremely poor. We will continue to follow. Discussed her condition over the phone today with her sister Arlette and apparently according to her sister the CODE STATUS is DO NOT RESUSCITATE, and she is definitely heading to possibly consider comfort care measures on her sister when she comes into the hospital in the next 2 days. Her sister apparently had COVID-19 infection, and she is now in quarantine until tomorrow Critical care time is over 30minutes Time with Patient: Greater than 30
[2022-08-15 11:18] LABS: Glucose,Whole Blood 125 mg/dL (70-110)
[2022-08-15] MEDS: NOREPINEPHRINE 8 MG in SODIUM CHLORIDE 0.9% 250 ML IV SCH ×2 (11:25→20:36)
[2022-08-15 12:43] LABS: Glucose,Whole Blood 131 mg/dL (70-110)
[2022-08-15 13:19] VITALS: BMI 33.5
[2022-08-15 14:16] LABS: Glucose,Whole Blood 145 mg/dL (70-110)
--- NOTE | 2022-08-15 14:17 | CONS ---
CONSULTATION HISTORY: A 67-year-old lady who is admitted to hospital with GI bleed, respiratory failure, currently intubated on vent and sedated but we have been asked to see because of episodes of atrial fibrillation with poorly controlled ventricular rate. This morning she remains in sinus rhythm and is currently being dialyzed. She is still hypotensive and requiring Levophed. The IV amiodarone drip had been stopped last night. She is currently on oral amiodarone 200 mg b.i.d. PHYSICAL EXAMINATION: VITAL SIGNS: On exam, heart rate is 60 beats per minute, blood pressure is 118/60, respiratory rate is 18, she is on FiO2 of 40%, mechanically ventilated, O2 saturation is 100%. CHEST: Reveals good air entry bilaterally. HEART: Reveals first and second heart sounds. No gallop, no murmur. ABDOMEN: Soft. EXTREMITIES: Reveals bilateral 1+ pitting edema. LABS: Show that the hemoglobin is 8.7, it was 6.2 on admission. ASSESSMENT: 1. Vent requiring respiratory failure. 2. Persistent atrial fibrillation, currently in sinus rhythm. 3. Anemia, secondary to GI blood loss. PLAN: I will continue the patient on beta blockers and oral amiodarone. She is not a candidate for anticoagulants at this time. MMODL / IJN: [id number] /
[2022-08-15 16:53] LABS: Glucose,Whole Blood 168 mg/dL (70-110)
--- NOTE | 2022-08-15 22:32 | P.PN ---
"Subjective This is a pleasant 67-soaked female with past medical history of alcohol liver disease and cirrhosis, coronary artery disease gastroesophageal reflux disease, chronic heart failure, fibromyalgia, hyperlipidemia, diabetes mellitus on insulin, pancytopenia, seizure history of TIPS and EGD with banded esophageal varices. paroxysmal atrial fibrillation not on anticoagulation secondary to liver disease on the waiting list for liver transplant on [facility] in [place] Presents with dyspnea and hypoxia Patient currently in intubated and could not provide information so it was obtained from the medical records and staff. No family at bedside. Patient was hypotensive blood pressure 93/78, currently her blood pressure improved slightly 102/44.. She is saturating 98%. She is tachypneic with a breathing rate around 28. Patient is afebrile. showing leukocytosis of 15.1, at baseline she has leukopenia with WBC 2-3. Hemoglobin 7.8.Platelet count 91 INR 1.6. PH 7.2, pCO2 of 34. PO2 of 195. Lactic acid is 4.6. Creatinine 2.1, baseline 1.5-1.7, chronic kidney disease stage III Magnesium 2.4 Bilirubin elevated at 2.8, AST slightly elevated at 42 while ALT is normal at 24. Ammonia is 53 [place] 90[address]. Serum alcohol Less than 10 Covid is not detected as well as influenza virus is Chest x-ray: There are multiple focal large ill-defined opacity throughout the entire of the right lung and involved the left suprahilar and left infra-hilar lung the pattern consistent with a clinical diagnosis of multifocal bronchopneumonia with associated right pleural effusion per the radiologist An emergency room patient received a pleasant somewhat, IV Solu-Medrol 1, morphine, Ativan and she got intubated. Also she received Rocephin 1. She was also receiving normal saline at 100 mL per hour with pulmonary team consulted Peterson catheter in place with dark yellow urine about 5 mL. 08/12/2022 Patient is still intubated and sedated in the ICU with pulmonary/critical care team followed closely. She has evidence of septic shock and 2 bilateral pneumonia and currently she is on levophed at 0.08 , with oliguric renal failure and plan for the patient to undergo hemodialysis however there is slight improvement in urine output compare d to yesterday. Lasix was stopped. Ultrasound showed no hydronephrosis but there is evidence of ascites. Also patient looks her problem cardiac as there is moderate to severe right ventricular dilatation with severe pulmonary hypertension and moderate mitral regurgitation and moderate to severe tricuspid regurgitation. Patient also with fluid overload with ascites and leg edema and chest x-ray showed CHF versus ARDS versus pneumonia. Levemir increased to 20 units with NovoLog 5 units every 6 hours with close monitoring of glucose. She has thrombocytopenia, anemia, mild coagulopathy. Creatinine 2.4. She is tachypneic and tachycardic and she was placed on amiodarone drip 08/14/2022 Patient remains in the ICU in critical condition, intubated and sedated. She still needs high FiO2 of 50% and PEEP of 12. Also she required her dose of pressors of levophed at 0.12. She underwent paracentesis with 4.3 L of fluid removed She remains on ceftriaxone and Ativan, and amiodarone Her glucose was on the low side so we lowered the dose of his Levemir down to 30 units twice a day with close monitoring of glucose| Several consultants on the case Prognosis is poor 08/15/2022 Patient continued to do poorly She remains intubated and sedated. Her FiO2 is 40% which is a slightly greater she still tachypneic. Glucose was low and she has to receive D5W. Insulin was stopped. The measurements on IV vancomycin and ceftriaxone Continue with amiodarone for her A. fib Several consultants on the case Objective - Vital Signs Vital signs: Vital Signs Temp 97.8 F 08/15/22 12:00 Pulse 53 L 08/15/22 12:00 Resp 34 H 08/15/22 12:00 BP 136/46 08/15/22 11:00 Pulse Ox 98 08/15/22 12:00 FiO2 40 08/15/22 12:08 Intake & Output 08/14/22 08/15/22 08/15/22 18:59 06:59 18:59 Intake Total 7378.357 1454.329 1174.162 Output Total 4535 2175 2150 Balance -3234.358 -993.671 -975.838 Weight 95.1 kg 88.7 kg Intake: IV 176 305 310 0.9 pressure bag 66 75 30 0.9ns 110 130 50 Dextrose 5% in Water 1, 100 230 000 ml @ 50 mls/hr IV . Q20H [facility] Rx#:[id number] Intake, IV Titration 785.642 516.329 354.162 Amount Amiodarone 450 mg In 250 Dextrose 5% in Water 250 ml @ 0.5 MG/MIN 16.667 mls/hr IV .Q15H [facility] Rx#: [id number] Amiodarone 450 mg In 20.834 Dextrose 5% in Water 250 ml @ 0.5 MG/MIN 16.667 mls/hr IV .Q15H [facility] Rx#: [id number] Norepinephrine 4 mg In 388.495 428.529 254 Sodium Chloride 0.9% 250 ml @ 0.02 MCG/KG/MIN 6. 394 mls/hr IV .Q24H [facility] Rx#:[id number] Norepinephrine 8 mg In 40.162 Sodium Chloride 0.9% 250 ml @ 0.03 MCG/KG/MIN 5. 149 mls/hr IV .Q24H [facility] Rx#:[id number] propofoL 1,000 mg In 147.147 66.966 60 Empty Bag 1 bag @ 15 MCG/ KG/MIN 7.552 mls/hr IV . [id number] [facility] Rx#:[id number] Tube Feeding 40 270 150 Blood Product 299 Platelet Pheresis Pas 299 Psoralen Unit [id number] Hemodialysis 300 Other 90 60 Output: Drainage 4300 2000 200 Left Abdomen 4300 2000 200 Urine 235 175 50 Hemodialysis 1900 Other: Voiding Method Indwelling Catheter Indwelling Catheter Indwelling Catheter ABP, PAP, CO, CI - Last Documented Arterial Blood Pressure 121/40 - Exam -GENERAL: The patient is intubated and sedated HEENT: Pupils are round and equally reacting to light. EOMI. No scleral icterus. No conjunctival pallor. Normocephalic, atraumatic. No pharyngeal erythema. No thyromegaly. CARDIOVASCULAR: S1 and S2 present. No murmurs, rubs, or gallops. -PULMONARY: Chest is clear to auscultation, no bilateral crepitation -ABDOMEN: Soft, nontender, mild distention, normoactive bowel sounds. No palpable organomegaly. MUSCULOSKELETAL: No joint swelling or deformity. EXTREMITIES: No cyanosis, clubbing, or pedal edema. NEUROLOGICAL: Gross neurological examination did not reveal any focal deficits. SKIN: No rashes. no petechiae. - Labs CBC & Chem 7: 08/15/22 04:50 08/15/22 04:50 Labs: Abnormal Lab Results - Last 24 Hours (Table) 08/11/22 08/11/22 08/14/22 Range/Units 06:50 12:20 20:09 WBC (3.8-10.6) k/uL RBC (3.80-5.40) m/uL Hgb (11.4-16.0) gm/dL Hct (34.0-46.0) % MCHC (31.0-37.0) g/dL RDW (11.5-15.5) % Plt Count (150-450) k/uL Neutrophils # (1.3-7.7) k/uL Lymphocytes # (1.0-4.8) k/uL ABG pO2 (83-108) mmHg ABG HCO3 (21-25) mmol/L ABG Total CO2 (19-24) mmol/L ABG O2 Saturation (94-97) % Sodium (137-145) mmol/L BUN (7-17) mg/dL Creatinine (0.52-1.04) mg/dL POC Glucose (mg/dL) 65 L (70-110) mg/dL Calcium (8.4-10.2) mg/dL Total Bilirubin (0.2-1.3) mg/dL AST (14-36) U/L Alkaline Phosphatase (38-126) U/L Total Protein (6.3-8.2) g/dL Albumin (3.5-5.0) g/dL Viral Test See Below A Crossmatch See Detail 08/14/22 08/14/22 08/15/22 Range/Units 20:33 22:36 03:51 WBC (3.8-10.6) k/uL RBC (3.80-5.40) m/uL Hgb (11.4-16.0) gm/dL Hct (34.0-46.0) % MCHC (31.0-37.0) g/dL RDW (11.5-15.5) % Plt Count (150-450) k/uL Neutrophils # (1.3-7.7) k/uL Lymphocytes # (1.0-4.8) k/uL ABG pO2 (83-108) mmHg ABG HCO3 (21-25) mmol/L ABG Total CO2 (19-24) mmol/L ABG O2 Saturation (94-97) % Sodium (137-145) mmol/L BUN (7-17) mg/dL Creatinine (0.52-1.04) mg/dL POC Glucose (mg/dL) 111 H 69 L 47 L (70-110) mg/dL Calcium (8.4-10.2) mg/dL Total Bilirubin (0.2-1.3) mg/dL AST (14-36) U/L Alkaline Phosphatase (38-126) U/L Total Protein (6.3-8.2) g/dL Albumin (3.5-5.0) g/dL Viral Test Crossmatch 08/15/22 08/15/22 08/15/22 Range/Units 04:50 04:50 05:33 WBC 13.1 H (3.8-10.6) k/uL RBC 3.19 L (3.80-5.40) m/uL Hgb 8.7 L (11.4-16.0) gm/dL Hct 28.3 L (34.0-46.0) % MCHC 30.8 L (31.0-37.0) g/dL RDW 17.1 H (11.5-15.5) % Plt Count 23 L (150-450) k/uL Neutrophils # 11.2 H (1.3-7.7) k/uL Lymphocytes # 0.5 L (1.0-4.8) k/uL ABG pO2 118 H (83-108) mmHg ABG HCO3 26 H (21-25) mmol/L ABG Total CO2 27 H (19-24) mmol/L ABG O2 Saturation 99.8 H (94-97) % Sodium 134 L (137-145) mmol/L BUN 28 H (7-17) mg/dL Creatinine 1.28 H (0.52-1.04) mg/dL POC Glucose (mg/dL) (70-110) mg/dL Calcium 7.6 L (8.4-10.2) mg/dL Total Bilirubin 3.4 H (0.2-1.3) mg/dL AST 49 H (14-36) U/L Alkaline Phosphatase 167 H (38-126) U/L Total Protein 4.6 L (6.3-8.2) g/dL Albumin 2.2 L (3.5-5.0) g/dL Viral Test Crossmatch 08/15/22 08/15/22 08/15/22 Range/Units 06:00 07:56 11:16 WBC (3.8-10.6) k/uL RBC (3.80-5.40) m/uL Hgb (11.4-16.0) gm/dL Hct (34.0-46.0) % MCHC (31.0-37.0) g/dL RDW (11.5-15.5) % Plt Count (150-450) k/uL Neutrophils # (1.3-7.7) k/uL Lymphocytes # (1.0-4.8) k/uL ABG pO2 (83-108) mmHg ABG HCO3 (21-25) mmol/L ABG Total CO2 (19-24) mmol/L ABG O2 Saturation (94-97) % Sodium (137-145) mmol/L BUN (7-17) mg/dL Creatinine (0.52-1.04) mg/dL POC Glucose (mg/dL) 58 L 114 H 125 H (70-110) mg/dL Calcium (8.4-10.2) mg/dL Total Bilirubin (0.2-1.3) mg/dL AST (14-36) U/L Alkaline Phosphatase (38-126) U/L Total Protein (6.3-8.2) g/dL Albumin (3.5-5.0) g/dL Viral Test Crossmatch 08/15/22 Range/Units 12:41 WBC (3.8-10.6) k/uL RBC (3.80-5.40) m/uL Hgb (11.4-16.0) gm/dL Hct (34.0-46.0) % MCHC (31.0-37.0) g/dL RDW (11.5-15.5) % Plt Count (150-450) k/uL Neutrophils # (1.3-7.7) k/uL Lymphocytes # (1.0-4.8) k/uL ABG pO2 (83-108) mmHg ABG HCO3 (21-25) mmol/L ABG Total CO2 (19-24) mmol/L ABG O2 Saturation (94-97) % Sodium (137-145) mmol/L BUN (7-17) mg/dL Creatinine (0.52-1.04) mg/dL POC Glucose (mg/dL) 131 H (70-110) mg/dL Calcium (8.4-10.2) mg/dL Total Bilirubin (0.2-1.3) mg/dL AST (14-36) U/L Alkaline Phosphatase (38-126) U/L Total Protein (6.3-8.2) g/dL Albumin (3.5-5.0) g/dL Viral Test Crossmatch Microbiology - Last 24 Hours (Table) 08/14/22 15:02 Gram Stain - Preliminary Ascites Fluid Body Fluid Culture - Preliminary 08/10/22 21:30 Blood Culture - Preliminary Blood No Growth after 96 hours 08/14/22 15:02 Anaerobic Culture - Preliminary Ascites Fluid Assessment and Plan Assessment: Acute Bilateral broncho-pneumonia Acute CHF exacerbation, with ejection fraction 55-60% Possible septic shock Acute hypoxic respiratory failure, required intubation and mechanical ventilation Acute kidney injury, with low urine output Metabolic acidosis Elevated lactic acid Metabolic and hepatic encephalopathy possible ARDS versus CHF [id number] mitral regurgitation and moderate to severe tricuspid regurgitation with severely dilated right ventricle and severe pulmonary hypertension Elevated bilirubin Diabetes mellitus on insulin, nonalcoholic liver disease and liver cirrhosis History of ascites status post paracentesis Chronic heart failure History of fibromyalgia Hyperlipidemia and history of pancytopenia History of seizure history of EGD with banded esophageal varices History of chronic atrial fibrillation not on anticoagulation because of her liver disease [id number] mitral regurgitation Plan: This is a pleasant 58 minus old female presents with hypoxia Continue with bronchodilator Monitor platelets hemoglobin and signs of bleeding Continue with antibiotic ceftriaxone and IV vancomycin follow-up culture results Continue with rifaximin and lactulose There is no GI coverage in this facility Continue with amiodarone 200 mg twice a day Continue with Levemir 34 units daily and NovoLog 10 units every 6 hours She is on sodium bicarb 100 mL per hour per pulmonary and nephrology's recommendation Follow up creatinine, check urinalysis. Patient has low urine output. We will monitor urine output and consider nephrology consult. Labs and medication were reviewed.. Continue same treatment. Continue with symptomatic treatment. Resume home medication. Monitor lytes and vitals. DVT and GI prophylaxis. Further recommendations as per clinical course of the patient DVT prophylaxis: no Subcutaneous heparin for thrombocytopenia GI Prophylaxis: Ppi Prognosis is guarded"
[2022-08-16] LABS: Glucose,Whole Blood 181 mg/dL (70-110)
[2022-08-16] MEDS: INSULIN ASPART (NovoLOG) 100 UNIT/ML VIAL SQ SCH ×3 (00:31→14:15)
[2022-08-16] MEDS: NOREPINEPHRINE 8 MG in SODIUM CHLORIDE 0.9% 250 ML IV SCH (04:25)
[2022-08-16 05:06] VITALS: RESP 26
[2022-08-16 05:21] LABS: Anisocytosis Slight; Basophils % (A) 0 %; Eosinophils # (A) 0.5 k/uL (0-0.7); Eosinophils % (A) 4 %; HCT 27.4 % (34.0-46.0); HGB 8.3 gm/dL (11.4-16.0); Hypochromasia Marked; Lymphocytes # (A) 0.6 k/uL (1.0-4.8); Lymphocytes % (A) 4 %; MCH 27.6 pg (25.0-35.0); MCHC 30.5 g/dL (31.0-37.0); MCV 90.5 fL (80.0-100.0); Mean Platelet Volume 15.1; Monocytes # (A) 0.5 k/uL (0-1.0); Monocytes % (A) 4 %; Neutrophils # (A) 11.1 k/uL (1.3-7.7); Neutrophils % (A) 85 %; Poikilocytosis Moderate; RBC 3.03 m/uL (3.80-5.40); RDW 17.6 % (11.5-15.5); WBC 13.1 k/uL (3.8-10.6)
[2022-08-16 05:31] LABS: Calcium 7.5 mg/dL (8.4-10.2); Platelet Count 37 k/uL (150-450); Potassium 3.9 mmol/L (3.5-5.1)
[2022-08-16 05:34] LABS: Glucose,Whole Blood 200 mg/dL (70-110)
[2022-08-16 05:43] LABS: ABG HCO3 26 mmol/L (21-25); ABG Oxygen Saturation 99.2 % (94-97); ABG PCO2 40 mmHg (35-45); ABG PH 7.43 (7.35-7.45); ABG PO2 104 mmHg (83-108); ABG TCO2 28 mmol/L (19-24); Allen Test Performed? Yes
[2022-08-16 06:07] LABS: Glucose,Whole Blood 215 mg/dL (70-110)
[2022-08-16] MEDS: IPRATROPIUM-ALBUTEROL 3 ML NEB INHALATION PRN (07:39)
--- NOTE | 2022-08-16 07:39 | XR ---
EXAMINATION TYPE: XR chest 1V portable DATE OF EXAM: 08/16/2022 COMPARISON: 08/15/2022 HISTORY: Tube placement TECHNIQUE: Single frontal view of the chest is obtained. FINDINGS: ET and NG tube and left-sided central line stable. Diffuse interstitial pattern with bilat eral infiltrate and pleural effusion stable. No sizable pneumothorax. Chronic deformity of the right humerus stable. IMPRESSION: 1. Diffuse bilateral pleural-parenchymal changes correlate for CHF versus pneumonia.
[2022-08-16 08:14] VITALS: TEMP 98.1
[2022-08-16] MEDS: PANTOPRAZOLE 40 MG/10 ML VIAL IV SCH (09:17)
[2022-08-16] MEDS: CHLORHEXIDINE GLUCONATE 15 ML CUP MUCOUS MEM SCH (09:17)
[2022-08-16] MEDS: LACTULOSE 20 GM/30 ML CUP PO SCH (09:17)
[2022-08-16] MEDS: RIFAXIMIN 550 MG TABLET PO SCH (09:18)
[2022-08-16] MEDS: AMIODARONE 200 MG TAB PO SCH (09:18)
[2022-08-16] MEDS: METOPROLOL TARTRATE 25 MG TAB PO SCH (09:18)
[2022-08-16 10:10] VITALS: PULSE 59
[2022-08-16] MEDS ORDERED: ATROPINE OPHTH SOLN 1% 5ML BTL SUBLINGUAL PRN (10:12)
[2022-08-16] MEDS ORDERED: MORPHINE SULFATE (100 MG/2 ML) 100 MG in SODIUM CHLORIDE 0.9% 100 ML IV SCH (10:15)
[2022-08-16] MEDS ORDERED: SCOPOLAMINE 1 MG/72 HR PATCH TRANSDERM SCH (10:15)
--- NOTE | 2022-08-16 11:43 | P.PN ---
Subjective Progress Note Date: 08/16/22 Principal diagnosis: Acute hypoxic respiratory failure secondary to acute streptococcal pneumonia, sepsis and septic shock. This is a 67-year-old female patient with known history of nonalcoholic liver failure/cirrhosis. 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 The patient has been seen by the GI service at the [facility]. She underwent a TIPS procedures as the patient was requiring multiple episodes of paracentesis over the years. The patient has had previous episodes of massive GI bleed and this was secondary to portal hypertension and esophageal varices. Taking care of this patient in the past and the intensive care unit. My last encounter with her was in June 2021 and backbench I treated with shortness of breath and she had large bilateral pleural effusion and atelectasis and she was hypoxic and she was managed accordingly. The patient also has a long list of comorbid conditions Primus related to her liver cirrhosis. She is diabetic and she has known history of coronary artery disease. The patient came in yesterday to the emergency department with acute respiratory distress. This started a few days prior to her admission. She was confused and not a whole lot of history was obtained from her in the emergency. She was reporting no fever or chills. No aspiration. The patient was in significant distress. They tried on BiPAP initially and she failed and subsequently she got intubated and placed on a mechanical ventilator. Post intubation chest x-ray showed extensive bilateral lung consolidations more so on the right. A repeat chest x-ray was on this morning and it is humid and G-tube are again seen and the patient has extensive bilateral airspace disease seen. This morning, the patient is sedated with propofol running at 20 mcg/kg/m. She is on assist control of 28 with a tidal volume of 450 and FiO2 of 90% with a PEEP of 5. Her blood work from this morning shows a white cell count of 6.7 which dropped from 15.1. Hemoglobin is down to 6.2 from a baseline of 7.8 and a platelet count was 91,000 yesterday. Her INR today is 1.7 with a PT of 17.8. The patient also has a component of and I get metabolic acidosis with a gap of 16 at the time of admission, current serum bicarbs of 14 with a gap of 12 and sodium level of 136. Potassium level is at 4.7. Her lactic acid initially was 4.6-1.9. Her Calcium Is at 7.7. Bilirubin Is at 1. LFTs Are Normal. Serum Albumin Is at 2.7. Covid 19 Testing Was Negative. Influenza Screen Was Negative. Alcohol Level Was Negative. Most Recent Blood Gas Shows a pH of 7.34 with a PCO2 of 25 and PO2 of 87. She Was Borderline Hypotensive. She Was Given 2 Doses of Albumin Yesterday 25%. She Was Also Given a Bolus of Saline in the Emergency Department. The Bolus of Saline was in order of 500 mL. Currently she is on a bicarbonate infusion running at a rate of 100 mL an hour. Urine output is extremely low and order a fasting cc on an hourly basis. Antibiotic coverage was also provided and the patient was started on IV Zosyn. She is on pressors and this was started yesterday and norepinephrine is O- 0.06 mcg/kg/m. 08/13/2022, the patient is being seen for a follow-up. She is in septic shock secondary to pneumococcal pneumonia and multisystem organ failure. The patient this morning remains sedated and she is currently on propofol running at 20 mcg/kg/m. She was she is well rested and she is synchronous with the mechanical ventilator. She was doing well on the mechanical ventilator. However earlier this morning, she had an episode of desaturation. Repeat chest x-rays were done and the findings were essentially consistent with bilateral pneumonia. No evidence of any pneumothorax. No evidence of any interval worsening. Based on that, the patient was placed on a PEEP of 16 to improve her oxygenation and FiO2 was kept at 70% and she is currently at the rate of 28 with a tidal volume of 375. Those changes were done as the patient was desaturating and I had to lower the tidal volume and increase the PEEP. Ultimately, this turned out to be probably a mucous plug. After repeated suctioning, she improved. Oxygenation also improved and the pO2 is up to when necessary 17. Repeat blood gas these to be done to reevaluate her oxygenation. The pH is 7.41 with a pCO2 of 35. I dropped the PEEP by 2 and currently she is on a PEEP of 14. Peak airway pressures around 36. The patient otherwise is still septic and hypotensive. In terms of IV fluids, she is receiving bicarb infusion at that eighth of 100 mL an hour. She underwent hemodialysis yesterday as the patient was having significant amount of fluid overload. Dialysis catheter was inserted yesterday and he right groin. First session of hemodialysis established with a total of 1000 mL of ultrafiltration. She did convert into normal sinus rhythm and she is out of atrial fibrillation for now. However, she is still requiring pressors and norepinephrine is running at a rate of 0.04 mcg/kg/m. I'm going to switch this patient to oral amiodarone. That echocardiogram showed a preserved LV function. In terms of labs, the white cycles of 6.1 with a hemoglobin of 8.1 and a platelet count that dropped down to 23. The patient was a sodium of 133, potassium of 3.4, bicarb of 20, BUN of 43 with a creatinine of 1.89. Stool for C. diff has been negative. The patient remains on a combination of Rocephin and vancomycin. The vancomycin random level was 22. The patient does she is also on NovoLog units 4 times a day and the sliding scale coverage. We will need to monitor the blood sugar control and use a drip if needed. CVP is currently at 15. not have STEPHON is on the vancomycin yet. Enteral feeding is accomplished by vital HP at the rate of 39 mL an hour. He is able to tolerate the enteral feeding without having any major difficulties. She is on Levemir insulin and this was started today as the patient's blood sugar was considerably elevated. CVP at 15 Reevaluated today on 08/14/22, patient remains in the ICU, intubated and mechanically ventilated. Her ventilator settings are assist control rate of 20 06/17/1977 FiO2 50% and PEEP of 12. ABG showed a pO2 of 106 pCO2 38 pH of 7.40, hence no changes were made in her present ventilator settings. Patient remains on multiple drips including amiodarone at 0.5 mg/m she is also on norepinephrine at 0.14 mcg/kg/m propofol at 30 mcg/kg/m IV fluid at KVO. Blood cultures were positive for Streptococcus pneumonia. Patient remains on Rocephin. Yesterday patient had hemodialysis, and 200 mL only were taken off. Intermittently the patient goes in A. fib and RVR, remains on amiodarone, cardiology was consulted on this patient today. Patient received a unit of packed RBCs on 08/11 Hemoglobin today is 8.8. Hemoglobin was as low as 6.2 on 08/11. No evidence of active bleeding. Patient is clearly developing multisystem organ failure. And she is nowhere near any weaning or extubation at this point, I believe as a matter of fact her condition is extremely poor, and prognosis is extremely poor. Her expected mortality is over 95% at this point. Clearly the patient has a multisystem organ failure. Today I recommended checking the pressures of the urinary bladder to make sure that the patient does not have abdominal compartment syndrome, the pressures came back to be reasonable/16 patient had poor tolerance to enteral feedings. Remains on rifaximin and she is also on lactulose for elevated ammonia level. Patient clearly has a hepatic encephalopathy. INR today is 1.5. Platelets remained low at 28,000, I may consult interventional radiology for paracentesis/ultrasound-guided. BUN is 38 creatinine 1.70 bicarb is 20 to today. Reevaluated today on 08/15/22, patient remains in the ICU, intubated and mechanically ventilated. She is on assist control rate of 28 tidal volume of 375 FiO2 40% and PEEP of 5. ABG showed a pO2 of 118 pCO2 39 pH of 7.43, rate was cut down to 26 and her PEEP cut down to 10 flow rate was increased to 70 L/m. FiO2 remains at 40%. Patient is now off amiodarone as of 10 PM last night since she was getting bradycardic. She remains on propofol at 10 mcg/kg/m, D5W at 50 mL/h, norepinephrine 0.2 mcg/kg/m, she is also on hemodialysis, and yesterday she had a paracentesis weren't 4.2 L of fluid was drained continues to have drainage from the paracentesis site into an ostomy bag, and she must have drained about 2 L since yesterday. Chest x-ray is showing improvement in her interstitial edema. Abdomen seems to be less distended and less edematous, there is definite the left sinusitis, continues to have swollen and edematous lower extremities. Patient remains on enteral feeding using vital at bedtime at 50 mL per hour. Labs today showed WBC of 13.1 hemoglobin 8.7. Electrolytes are normal renal profile showed a BUN of 28 creatinine 1.28. Hepatitis screen has been negative. Medications-yeung patient remains on amiodarone 200 mg by mouth twice a day, she is also on Rocephin 2 g every 24 hours, Peridex, insulin subcu, DuoNeb updrafts, lactulose, metoprolol, 25 twice a day, norepinephrine, Protonix, propofol, and rifaximin. Ammonia level today is 12. This was 53 on 08/10/2022 Reevaluated today on 08/16/22, patient remains in the ICU, intubated, mechanically ventilated, she is on assist control of 26th of volume to 75 FiO2 40% PEEP of 10. ABG showed a pO2 of 104 pCO2 40 pH of 7.43. Patient is still requiring propofol 50 mcg/kg/m, norepinephrine at 0.4 mcg/kg/m. Patient is on enteral feeding/tube feeding, using vital HP at 39 mL per hour. Not much of a change happened over the last 24 hours, patient is supposed to be receiving dialysis today, but considering that the patient may be placed on comfort care, I believe we could hold on the hemodialysis. I talked to the patient's sister yesterday, and the plan is to come in today, and proceed to comfort care measures when the sister arrives. And I think considering the patient's overall medical issues and multisystem organ failure, I believe this is very appropriate for this patient. WBC count today is 13.1 hemoglobin is 8.3 basic metabolic profile is normal BUN is 31 creatinine 1.35. Objective - Vital Signs Vital signs: Vital Signs Temp 98.1 F 08/16/22 08:00 Pulse 59 L 08/16/22 10:00 Resp 26 H 08/16/22 10:00 BP 136/46 08/15/22 11:00 Pulse Ox 98 08/16/22 10:00 FiO2 40 08/16/22 11:04 Intake & Output 08/15/22 08/16/22 08/16/22 18:59 06:59 18:59 Intake Total 8677.106 5791.881 299.286 Output Total 2405 60 40 Balance -182.028 2061.881 259.286 Weight 88.7 kg 88.4 kg Intake: IV 412 192 48 0.9 pressure bag 72 72 18 0.9ns 80 120 30 Dextrose 5% in Water 1, 260 000 ml @ 50 mls/hr IV . Q20H [facility] Rx#:[id number] Intake, IV Titration 354.162 518.881 104.286 Amount Norepinephrine 4 mg In 254 Sodium Chloride 0.9% 250 ml @ 0.02 MCG/KG/MIN 6. 394 mls/hr IV .Q24H [facility] Rx#:[id number] Norepinephrine 8 mg In 40.162 448.311 74.204 Sodium Chloride 0.9% 250 ml @ 0.03 MCG/KG/MIN 5. 149 mls/hr IV .Q24H [facility] Rx#:[id number] propofoL 1,000 mg In 60 70.570 30.082 Empty Bag 1 bag @ 15 MCG/ KG/MIN 7.552 mls/hr IV . [id number] [facility] Rx#:[id number] Tube Feeding 423 468 117 Hemodialysis 300 Other 90 90 30 Output: Drainage 400 Left Abdomen 400 Urine 105 60 40 Hemodialysis 1900 Other: Voiding Method Indwelling Catheter Indwelling Catheter Indwelling Catheter # Bowel Movements 1 ABP, PAP, CO, CI - Last Documented Arterial Blood Pressure 127/39 - Exam Physical Exam: Revealed a 67-year-old female sedated, intubated, in no distress. On propofol. Head: Atraumatic, normocephalic. Endotracheal tube and orogastric tube are intact HEENT:[Neck is supple.] [No neck masses.] [No thyromegaly.] [No JVD.] Chest: [Scattered crackles at the bases, no wheezing. Symmetrical chest expansion. Cardiac Exam: [Normal S1 and S2, no S3 gallop, 2/6 systolic murmur thought the precordium. Abdomen: [Distended, nontender, less ascites compared to yesterday, ostomy bag is noted draining from the site of her last paracentesis. Extremities: [No clubbing, 3+ bipedal edema, no cyanosis.] Neurological Exam: Cannot assess, patient is sedated. Psychiatric: Could not assess. Skin: No rashes. - Labs CBC & Chem 7: 08/16/22 05:05 08/16/22 05:05 Labs: Abnormal Lab Results - Last 24 Hours (Table) 08/15/22 08/15/22 08/15/22 Range/Units 12:41 14:14 16:51 WBC (3.8-10.6) k/uL RBC (3.80-5.40) m/uL Hgb (11.4-16.0) gm/dL Hct (34.0-46.0) % MCHC (31.0-37.0) g/dL RDW (11.5-15.5) % Plt Count (150-450) k/uL Neutrophils # (1.3-7.7) k/uL Lymphocytes # (1.0-4.8) k/uL ABG HCO3 (21-25) mmol/L ABG Total CO2 (19-24) mmol/L ABG O2 Saturation (94-97) % Sodium (137-145) mmol/L BUN (7-17) mg/dL Creatinine (0.52-1.04) mg/dL Glucose (74-99) mg/dL POC Glucose (mg/dL) 131 H 145 H 168 H (70-110) mg/dL Calcium (8.4-10.2) mg/dL 08/15/22 08/16/22 08/16/22 Range/Units 23:59 05:05 05:05 WBC 13.1 H (3.8-10.6) k/uL RBC 3.03 L (3.80-5.40) m/uL Hgb 8.3 L (11.4-16.0) gm/dL Hct 27.4 L (34.0-46.0) % MCHC 30.5 L (31.0-37.0) g/dL RDW 17.6 H (11.5-15.5) % Plt Count 37 L D (150-450) k/uL Neutrophils # 11.1 H (1.3-7.7) k/uL Lymphocytes # 0.6 L (1.0-4.8) k/uL ABG HCO3 (21-25) mmol/L ABG Total CO2 (19-24) mmol/L ABG O2 Saturation (94-97) % Sodium 133 L (137-145) mmol/L BUN 31 H (7-17) mg/dL Creatinine 1.35 H (0.52-1.04) mg/dL Glucose 210 H (74-99) mg/dL POC Glucose (mg/dL) 181 H (70-110) mg/dL Calcium 7.5 L (8.4-10.2) mg/dL 08/16/22 08/16/22 08/16/22 Range/Units 05:33 05:39 06:05 WBC (3.8-10.6) k/uL RBC (3.80-5.40) m/uL Hgb (11.4-16.0) gm/dL Hct (34.0-46.0) % MCHC (31.0-37.0) g/dL RDW (11.5-15.5) % Plt Count (150-450) k/uL Neutrophils # (1.3-7.7) k/uL Lymphocytes # (1.0-4.8) k/uL ABG HCO3 26 H (21-25) mmol/L ABG Total CO2 28 H (19-24) mmol/L ABG O2 Saturation 99.2 H (94-97) % Sodium (137-145) mmol/L BUN (7-17) mg/dL Creatinine (0.52-1.04) mg/dL Glucose (74-99) mg/dL POC Glucose (mg/dL) 200 H 215 H (70-110) mg/dL Calcium (8.4-10.2) mg/dL Microbiology - Last 24 Hours (Table) 08/10/22 21:30 Blood Culture - Preliminary Blood No Growth after 120 hours 08/14/22 15:02 Gram Stain - Preliminary Ascites Fluid Body Fluid Culture - Preliminary Assessment and Plan Assessment: Impression: Acute hypoxic respiratory failure secondary to acute streptococcal pneumonia infection and streptococcal bacteremia. Acute sepsis and septic shock. Hypotension secondary to sepsis and septic shock. Multisystem organ failure Acute kidney injury, patient is on hemodialysis Acute metabolic acidosis requiring bicarbonate initially secondary to acute renal failure sepsis and septic shock. Acute on chronic anemia Acute metabolic encephalopathy Acute hepatic encephalopathy, ammonia is improving. Liver cirrhosis/ascites, history of TIPS for recurrent ascites. Hepatitis screen been negative Pancytopenia secondary to sepsis and liver failure as well as hypersplenism Portal hypertension and previous history of GI bleeding History of psoriasis and psoriatic arthritis History of pulmonary nodules Fibromyalgia History of diabetes, patient had insulin pump Coronary artery disease Severe pulmonary hypertension, possible hepatopulmonary syndrome New onset atrial fibrillation with RVR. Status post paracentesis and 4.2 L of fluid were removed from her abdominal cavity. Recommendation: Continue ventilatory support, however patient may go to comfort care measures today according to the sister white doctor yesterday. In the meantime we'll continue: antibiotics for streptococcal pneumonia bacteremia Hold on hemodialysis for today Continue amiodarone, now given orally. Continue norepinephrine Continue antibiotics Continue enteral feeding but slowly and hold if the patient develops residual. Or vomiting Continue lactulose and rifaximin Based on my discussion with her sister yesterday, the plan is to go to comfort care measures today and discontinue all of the above except comfort care. Critical care time is over 30minutes Time with Patient: Greater than 30
--- NOTE | 2022-08-16 23:18 | PN ---
PROGRESS NOTE SUBJECTIVE: Carol is a 67-year-old lady with vent requiring respiratory failure, history of GI bleed, and has paroxysmal episodes of atrial fibrillation, for which we were consulted. This morning, she remains in sinus rhythm on oral amiodarone at 200 b.i.d., metoprolol 25 b.i.d. She is not a candidate for anticoagulation. OBJECTIVE: VITAL SIGNS: Afebrile, heart rate is 60 beats per minute, blood pressure is 122/36, respirations 18, O2 saturation is 98% with a FiO2 of 40% and is mechanically ventilated. CHEST: Reveals diminished air entry at the bases. HEART: Reveals first and second heart sounds. No gallop. EXTREMITIES: Reveals mild bilateral leg edema. LABORATORY STUDIES: Labs show that the hemoglobin is 8.3, platelet count is low at 37, potassium is 3.9, creatinine is 1.3. ASSESSMENT: 1. Paroxysmal atrial fibrillation. 2. Vent requiring respiratory failure. 3. Anemia and thrombocytopenia. PLAN: Continue current measures. She is not a candidate for anticoagulation. Prognosis guarded. MMODL / IJN: [id number] /
--- NOTE | 2022-08-18 10:27 | P.DS ---
"Providers Date of admission: 08/10/22 21:42 Attending physician: Lennox Alas MD Consults: 08/10/22 21:39 Consult Physician Stat Consulting Provider: Ronnie Louie Consult Reason/Comments: Critical care management, ventilatory management Do you want consulting provider notified?: Already Contacted 08/11/22 09:50 Consult Physician Urgent Consulting Provider: Rene Watson Consult Reason/Comments: madelyn Do you want consulting provider notified?: Yes 08/12/22 11:28 Consult Physician Urgent Consulting Provider: Kodak Perez Consult Reason/Comments: dialysis catheter placement Do you want consulting provider notified?: Yes 08/14/22 08:37 Consult Physician Stat Consulting Provider: Charlie Orona Consult Reason/Comments: afib rvr Do you want consulting provider notified?: Yes 08/15/22 19:57 Consult Physician Stat Consulting Provider: April Roland Consult Reason/Comments: Fixed downward gaze Do you want consulting provider notified?: Already Contacted Primary care physician: Dario Underwood Hospital Course: Diagnoses: Acute Bilateral broncho-pneumonia Acute CHF exacerbation, with ejection fraction 55-60% septic shock Acute hypoxic respiratory failure, required intubation and mechanical ventilation Acute kidney injury, with low urine output Metabolic acidosis Elevated lactic acid Metabolic and hepatic encephalopathy possible ARDS versus CHF [id number] mitral regurgitation and moderate to severe tricuspid regurgitation with severely dilated right ventricle and severe pulmonary hypertension Elevated bilirubin Diabetes mellitus on insulin, nonalcoholic liver disease and liver cirrhosis History of ascites status post paracentesis Chronic heart failure History of fibromyalgia Hyperlipidemia and history of pancytopenia History of seizure history of EGD with banded esophageal varices History of chronic atrial fibrillation not on anticoagulation because of her liver disease [id number] mitral regurgitation Hospital course: This is a pleasant 67-soaked female with past medical history of alcohol liver disease and cirrhosis, coronary artery disease gastroesophageal reflux disease, chronic heart failure, fibromyalgia, hyperlipidemia, diabetes mellitus on insulin, pancytopenia, seizure history of TIPS and EGD with banded esophageal varices. paroxysmal atrial fibrillation not on anticoagulation secondary to liver disease on the waiting list for liver transplant on [facility] in [place] Presents with dyspnea and hypoxia Patient currently in intubated and could not provide information so it was obtained from the medical records and staff. No family at bedside. Patient was hypotensive blood pressure 93/78, currently her blood pressure improved slightly 102/44.. She is saturating 98%. She is tachypneic with a breathing rate around 28. Patient is afebrile. showing leukocytosis of 15.1, at baseline she has leukopenia with WBC 2-3. Hemoglobin 7.8.Platelet count 91 INR 1.6. PH 7.2, pCO2 of 34. PO2 of 195. Lactic acid is 4.6. Creatinine 2.1, baseline 1.5-1.7, chronic kidney disease stage III Magnesium 2.4 Bilirubin elevated at 2.8, AST slightly elevated at 42 while ALT is normal at 24. Ammonia is 53 ProBNP is elevated 15812. Serum alcohol Less than 10 Covid is not detected as well as influenza virus is Chest x-ray: There are multiple focal large ill-defined opacity throughout the entire of the right lung and involved the left suprahilar and left infra-hilar lung the pattern consistent with a clinical diagnosis of multifocal bronchopneumonia with associated right pleural effusion per the radiologist An emergency room patient received a pleasant somewhat, IV Solu-Medrol 1, morphine, Ativan and she got intubated. Also she received Rocephin 1. She was also receiving normal saline at 100 mL per hour with pulmonary team consulted Peterson catheter in place with dark yellow urine about 5 mL. 08/12/2022 Patient is still intubated and sedated in the ICU with pulmonary/critical care team followed closely. She has evidence of septic shock and 2 bilateral pneumonia and currently she is on levophed at 0.08 , with oliguric renal failure and plan for the patient to undergo hemodialysis however there is slight improvement in urine output compared to yesterday. Lasix was stopped. Ultrasound showed no hydronephrosis but there is evidence of ascites. Also patient looks her problem cardiac as there is moderate to severe right ventricular dilatation with severe pulmonary hypertension and moderate mitral regurgitation and moderate to severe tricuspid regurgitation. Patient also with fluid overload with ascites and leg edema and chest x-ray showed CHF versus ARDS versus pneumonia. Levemir increased to 20 units with NovoLog 5 units every 6 hours with close monitoring of glucose. She has thrombocytopenia, anemia, mild coagulopathy. Creatinine 2.4. She is tachypneic and tachycardic and she was placed on amiodarone drip 08/14/2022 Patient remains in the ICU in critical condition, intubated and sedated. She still needs high FiO2 of 50% and PEEP of 12. Also she required her dose of pressors of levophed at 0.12. She underwent paracentesis with 4.3 L of fluid removed She remains on ceftriaxone and Ativan, and amiodarone Her glucose was on the low side so we lowered the dose of his Levemir down to 30 units twice a day with close monitoring of glucose| Several consultants on the case Prognosis is poor 08/15/2022 Patient continued to do poorly She remains intubated and sedated. Her FiO2 is 40% which is a slightly greater she still tachypneic. Glucose was low and she has to receive D5W. Insulin was stopped. The measurements on IV vancomycin and ceftriaxone Continue with amiodarone for her A. fib Several consultants on the case 08/16/2022 In the morning patient was still intubated and in critical condition in the ICU After morning rounds I cut a message from the bedside there is that patient was made comfort care and she was . Please refer to nurse note for more details. Exam prior to expiration -GENERAL: The patient is intubated and sedated HEENT: Pupils are round and equally reacting to light. EOMI. No scleral icterus. No conjunctival pallor. Normocephalic, atraumatic. No pharyngeal erythema. No thyromegaly. CARDIOVASCULAR: S1 and S2 present. No murmurs, rubs, or gallops. -PULMONARY: Chest is clear to auscultation, no bilateral crepitation -ABDOMEN: Soft, nontender, mild distention, normoactive bowel sounds. No palpable organomegaly. MUSCULOSKELETAL: No joint swelling or deformity. EXTREMITIES: No cyanosis, clubbing, or pedal edema. NEUROLOGICAL: Gross neurological examination did not reveal any focal deficits. SKIN: No rashes. no petechiae. Patient Condition at Discharge: Critical Plan - Discharge Summary New Discharge Prescriptions: No Action Ezetimibe [Zetia] 10 mg PO DAILY Sertraline [Zoloft] 25 mg PO DAILY Atorvastatin [Lipitor] 40 mg PO HS Vitamin A Acetate [Vitamin A] 20,000 unit SL DAILY Potassium Chloride ER [K-Dur 20] 20 meq PO DAILY Midodrine HCl [ProAmatine] 10 mg PO BID Pantoprazole Sodium [Protonix] 40 mg PO DAILY Furosemide [Lasix] 40 mg PO DAILY Montelukast [Singulair] 10 mg PO HS Rifaximin [Xifaxan] 550 mg PO BID calcitrioL [Rocaltrol] 0.25 mcg PO MO INSULIN LISPRO (humaLOG) [humaLOG] See Protocol SQ ACHS Insulin Detemir (Levemir) [Levemir] 24 unit SQ DAILY Metoprolol Tartrate [Lopressor] 25 mg PO DAILY Lactulose [Constulose] 20 gm PO DAILY Discharge Medication List Ezetimibe [Zetia] 10 mg PO DAILY 09/04/16 [History] Sertraline [Zoloft] 25 mg PO DAILY 01/12/17 [History] Atorvastatin [Lipitor] 40 mg PO HS 02/03/20 [History] Vitamin A Acetate [Vitamin A] 20,000 unit SL DAILY 02/03/20 [History] Potassium Chloride ER [K-Dur 20] 20 meq PO DAILY 06/24/20 [History] Midodrine HCl [ProAmatine] 10 mg PO BID 03/15/21 [History] Pantoprazole Sodium [Protonix] 40 mg PO DAILY 03/15/21 [History] Furosemide [Lasix] 40 mg PO DAILY 07/25/21 [History] Montelukast [Singulair] 10 mg PO HS 01/03/22 [History] INSULIN LISPRO (humaLOG) [humaLOG] See Protocol SQ ACHS 08/10/22 [History] Insulin Detemir (Levemir) [Levemir] 24 unit SQ DAILY 08/10/22 [History] Lactulose [Constulose] 20 gm PO DAILY 08/10/22 [History] Metoprolol Tartrate [Lopressor] 25 mg PO DAILY 08/10/22 [History] Rifaximin [Xifaxan] 550 mg PO BID 08/10/22 [History] calcitrioL [Rocaltrol] 0.25 mcg PO MO 08/10/22 [History] Follow up Appointment(s)/Referral(s): Dario Underwood MD [Primary Care Provider] - 1-2 days Discharge Disposition: - Preliminary Cause of Preliminary Cause of : septic shock"
== END 2022-08-16 18:16 | disposition expired | DRG 870 ==
LOC: EC 19:22 → 2SICU 21:42
PROVIDERS: ADMIT Internal Medicine; ATTEND Internal Medicine
PROC: 5A1955Z Respiratory Ventilation, Greater than 96 Consecutive Hours (ICD-10-PCS; principal; 2022-08-10)
PROC: 0BH17EZ Insertion of Endotracheal Airway into Trachea, Via Natural or Artificial Opening (ICD-10-PCS; principal; 2022-08-10)
PROC: 3E0G76Z Introduction of Nutritional Substance into Upper GI, Via Natural or Artificial Opening (ICD-10-PCS; 2022-08-10)
PROC: 0DH67UZ Insertion of Feeding Device into Stomach, Via Natural or Artificial Opening (ICD-10-PCS; 2022-08-10)
PROC: 3E043XZ Introduction of Vasopressor into Central Vein, Percutaneous Approach (ICD-10-PCS; 2022-08-10)
PROC: 4A133J1 Monitoring of Arterial Pulse, Peripheral, Percutaneous Approach (ICD-10-PCS; 2022-08-11)
PROC: 02HV33Z Insertion of Infusion Device into Superior Vena Cava, Percutaneous Approach (ICD-10-PCS; 2022-08-11)
PROC: 03HY32Z Insertion of Monitoring Device into Upper Artery, Percutaneous Approach (ICD-10-PCS; 2022-08-11)
PROC: 0B9D8ZZ Drainage of Right Middle Lung Lobe, Via Natural or Artificial Opening Endoscopic (ICD-10-PCS; 2022-08-11)
PROC: 4A133B1 Monitoring of Arterial Pressure, Peripheral, Percutaneous Approach (ICD-10-PCS; 2022-08-11)
PROC: 04HK33Z Insertion of Infusion Device into Right Femoral Artery, Percutaneous Approach (ICD-10-PCS; 2022-08-12)
PROC: 5A1D70Z Performance of Urinary Filtration, Intermittent, Less than 6 Hours Per Day (ICD-10-PCS; 2022-08-12)
PROC: 0W9G3ZX Drainage of Peritoneal Cavity, Percutaneous Approach, Diagnostic (ICD-10-PCS; 2022-08-14)
DX: A40.3 Sepsis due to Streptococcus pneumoniae (principal); G93.41 Metabolic encephalopathy; N17.0 Acute kidney failure with tubular necrosis; J13 Pneumonia due to Streptococcus pneumoniae; J96.01 Acute respiratory failure with hypoxia; R65.21 Severe sepsis with septic shock; I13.0 Hypertensive heart and chronic kidney disease with heart failure and stage 1 through stage 4 chronic kidney disease, or unspecified chronic kidney disease; D62 Acute posthemorrhagic anemia; D68.4 Acquired coagulation factor deficiency; E87.21 Acute metabolic acidosis; I48.19 Other persistent atrial fibrillation; J98.11 Atelectasis; K76.6 Portal hypertension; I27.20 Pulmonary hypertension, unspecified; D69.59 Other secondary thrombocytopenia; E11.22 Type 2 diabetes mellitus with diabetic chronic kidney disease; K76.0 Fatty (change of) liver, not elsewhere classified; K70.31 Alcoholic cirrhosis of liver with ascites; K76.82 Hepatic encephalopathy; Z51.5 Encounter for palliative care; K70.40 Alcoholic hepatic failure without coma; I08.1 Rheumatic disorders of both mitral and tricuspid valves; Z66 Do not resuscitate; T17.990A Other foreign object in respiratory tract, part unspecified in causing asphyxiation, initial encounter; K76.81 Hepatopulmonary syndrome; D63.1 Anemia in chronic kidney disease; L40.50 Arthropathic psoriasis, unspecified; N18.32 Chronic kidney disease, stage 3b; Z87.891 Personal history of nicotine dependence; Z20.822 Contact with and (suspected) exposure to COVID-19; Z96.41 Presence of insulin pump (external) (internal); Z79.4 Long term (current) use of insulin; D73.1 Hypersplenism; E78.5 Hyperlipidemia, unspecified; I25.10 Atherosclerotic heart disease of native coronary artery without angina pectoris; S42.301D Unspecified fracture of shaft of humerus, right arm, subsequent encounter for fracture with routine healing; W19.XXXD Unspecified fall, subsequent encounter; Z87.19 Personal history of other diseases of the digestive system; M79.7 Fibromyalgia; Z79.899 Other long term (current) drug therapy; Z82.49 Family history of ischemic heart disease and other diseases of the circulatory system; Z85.41 Personal history of malignant neoplasm of cervix uteri; R91.8 Other nonspecific abnormal finding of lung field; Z88.2 Allergy status to sulfonamides; Z88.8 Allergy status to other drugs, medicaments and biological substances; Z88.1 Allergy status to other antibiotic agents; Z88.0 Allergy status to penicillin; Z91.013 Allergy to seafood; Z91.030 Bee allergy status
CPT/HCPCS: 31624; 36415; 36600; 49083; 71045; 76705; 76770; 80048; 80053; 80076; 80202; 80306; 80320; 81001; 82140; 82533; 82805; 83036; 83605; 83735; 83880; 84145; 84484; 85025; 85027; 85610; 85730; 86705; 86706; 86850; 86900; 86901; 86920; 87040; 87070; 87075; 87077; 87086; 87102; 87116; 87186; 87205; 87206; 87252; 87324; 87340; 87496; 87498; 87502; 87529; 87634; 87635; 87798; 90935; 93005; 93306; 94002; 94003; 94640; 94660; 96374; 96375; 96376; 99285